=== PATIENT | male | born 1950 | race Caucasian/White ===

== ENCOUNTER 2017-11-22 21:01 | Inpatient (IN) | payer MEDICARE, MEDICAID ==
[~2017-11-22] VITALS: Ht 175.3 cm; Wt 140.6 kg
[2017-11-22] MEDS ORDERED: Sodium Chloride 500ML 500 ML IV ONE (21:26)
[2017-11-22 21:47] LABS: BASOPHILS % (AUTO) 1.2 % (0.0-2.0); EOSINOPHILS % (AUTO) 0.4 % (0.0-3.0); HEMATOCRIT 33.6 % (42.0-52.0); LYMPHOCYTES % (AUTO) 9.3 % (20.0-45.0); MEAN CORPUSCULAR VOLUME 94 FL (80-99); MONOCYTES % (AUTO) 5.9 % (1.0-10.0); NEUTROPHILS % (AUTO) 83.2 % (45.0-75.0); PLATELET COUNT 211 K/UL (150-450); RED BLOOD COUNT 3.58 M/UL (4.70-6.10); RED CELL DISTRIBUTION WIDTH 13.8 % (11.6-14.8); WHITE BLOOD COUNT 6.4 K/UL (4.8-10.8)
[2017-11-22 21:59] LABS: ANION GAP 4 mmol/L (5-15); BLOOD UREA NITROGEN 42 mg/dL (7-18); CALCIUM 9.6 MG/DL (8.5-10.1); CARBON DIOXIDE 33 MMOL/L (21-32); CHLORIDE 99 MMOL/L (98-107); CREATININE 1.7 MG/DL (0.55-1.30); POTASSIUM 5.5 MMOL/L (3.5-5.1); SODIUM 136 MMOL/L (136-145)
[2017-11-22 22:15] LABS: ALANINE AMINOTRANSFERASE 30 U/L (12-78); ALBUMIN 3.1 G/DL (3.4-5.0); ALBUMIN/GLOBULIN RATIO 0.6 (1.0-2.7); ALKALINE PHOSPHATASE 120 U/L (46-116); ASPARTATE AMINO TRANSFERASE 22 U/L (15-37); BILIRUBIN,TOTAL 0.2 MG/DL (0.2-1.0); CKMB 0.6 NG/ML (0.0-3.6); CREATINE KINASE 52 U/L (26-308)
[2017-11-22] MEDS ORDERED: Sodium Polystyrene Sulfonate 15gm Powder ORAL ONE (22:15)
[2017-11-22] MEDS ORDERED: BACLOFEN10 MG ORAL (22:34)
[2017-11-22] MEDS ORDERED: VITAMIN D1000 UNI1 ORAL (22:34)
[2017-11-22] MEDS ORDERED: BRIMONIDINE TART5 ML BOTH EYES (22:34)
[2017-11-22] MEDS ORDERED: CALCIUM 500 +1 EAC6 PO (22:34)
[2017-11-22] MEDS ORDERED: ACTOS30 MG ORAL (22:34)
[2017-11-22] MEDS ORDERED: COLACE100 MG ORAL (22:35)
[2017-11-22] MEDS ORDERED: BENZTROPINE ME0.5 MG PO (22:35)
[2017-11-22] MEDS ORDERED: GABAPENTIN400 MG ORAL (22:48)
[2017-11-22] MEDS ORDERED: XIFAXAN550 MG ORAL (22:48)
[2017-11-22] MEDS ORDERED: VITAMIN C500 M1 ORAL (22:48)
[2017-11-22] MEDS ORDERED: DUONEB 0.5-3(2.53 ML HHN (22:48)
[2017-11-22] MEDS ORDERED: GLUCAGON W/DILUE1 MG IJ (22:48)
[2017-11-22] MEDS ORDERED: LEXAPRO10 MG ORAL (22:48)
[2017-11-22] MEDS ORDERED: LOVENOX10 M4 SUBQ (22:48)
[2017-11-22] MEDS ORDERED: LOSARTAN POTASS50 MG ORAL (22:48)
[2017-11-22] MEDS ORDERED: GLIPIZIDE5 MG ORAL (22:48)
[2017-11-22] MEDS ORDERED: XALATAN2.5 ML BOTH EYES (22:48)
[2017-11-22] MEDS ORDERED: TYLENOL EXTRA500 MG ORAL (22:48)
[2017-11-22] MEDS ORDERED: DEPAKOTE ER500 MG ORAL (22:48)
[2017-11-22] MEDS ORDERED: NORVASC2.5 MG ORAL (22:48)
[2017-11-22] MEDS ORDERED: ACIDOPHILUS1 EAC6 PO (22:48)
[2017-11-22] MEDS ORDERED: RISPERDAL2 MG ORAL (22:48)
[2017-11-22] MEDS ORDERED: MULTIVITAMINS1 EAC2 ORAL (22:48)
[2017-11-22] MEDS ORDERED: RESTORIL15 MG ORAL (22:48)
[2017-11-22] MEDS ORDERED: LANTUS SOL100 UNIT/1 SUBQ (22:48)
[2017-11-22] MEDS ORDERED: JUVEN PACKET1 EAC1 PO (22:48)
[2017-11-22] MEDS ORDERED: TRAMADOL HCL50 MG ORAL (22:48)
[2017-11-22] MEDS ORDERED: FLEET ENEMA133 ML RECTAL (22:48)
[2017-11-22] MEDS ORDERED: FLOMAX0.4 MG ORAL (22:48)
--- NOTE | 2017-11-22 23:16 | Emergency Room Report ---
History of Present Illness General Chief Complaint: Dyspnea/Respdistress Source: Patient, Medical Record Present Illness HPI 66-year-old male presents ED for evaluation. Patient brought in from SNF for evaluation of shortness of breath and fever. 1 day. Per EMS patient noted to be congested. Initially tachycardic. Denies chest pain. No other aggravating relieving factors. Denies any other associated symptoms Allergies: Coded Allergies: ASPIRIN (Verified Allergy, Unknown, 11/22/17) CODEINE (Verified Allergy, Unknown, 11/22/17) PENICILLINS (Verified Allergy, Unknown, 11/22/17) SULFAMETHOXAZOLE (Verified Allergy, Unknown, 11/22/17) TRIMETHOPRIM (Verified Allergy, Unknown, 11/22/17) Patient History Past Medical History: DM, HTN, GERD Past Surgical History: none Pertinent Family History: none Social History: Denies: smoking, alcohol use, drug use Immunizations: UTD Reviewed Nursing Documentation: PMH: Agreed; PSxH: Agreed Nursing Documentation-PMH Past Medical History: No History, Except For Hx Hypertension: Yes Hx Diabetes: Yes - dm2 Hx Gastrointestinal Problems: Yes - gerd Hx Dialysis: No - ckd, bph Review of Systems All Other Systems: negative except mentioned in HPI Physical Exam Vital Signs Date Time Temp Pulse Resp B/P (MAP) Pulse Ox O2 Delivery O2 Flow Rate FiO2 11/22/17 20:58 98.7 100 22 127/75 97 Nasal Cannula 98.8 Sp02 EP Interpretation: reviewed, normal General Appearance: no apparent distress, alert, GCS 15, non-toxic Head: normocephalic, atraumatic Eyes: bilateral eye normal inspection, bilateral eye PERRL ENT: hearing grossly normal, normal pharynx, no angioedema, normal voice Neck: full range of motion, supple/symm/no masses Respiratory: chest non-tender, normal breath sounds, crackles, speaking full sentences Cardiovascular #1: regular rate, rhythm, no edema Cardiovascular #2: 2+ carotid (R), 2+ carotid (L), 2+ radial (R), 2+ radial (L) , 2+ dorsalis pedis (R), 2+ dorsalis pedis (L) Gastrointestinal: normal bowel sounds, non tender, soft, non-distended, no guarding, no rebound Rectal: deferred Genitourinary: normal inspection, no CVA tenderness Musculoskeletal: back normal, gait/station normal, normal range of motion, non- tender Neurologic: alert, oriented x3, responsive, motor strength/tone normal, sensory intact, speech normal Psychiatric: judgement/insight normal, memory normal, mood/affect normal, no suicidal/homicidal ideation Reflexes: 3+ bicep (R), 3+ bicep (L), 3+ tricep (R), 3+ tricep (L), 3+ knee (R) , 3+ knee (L) Skin: normal color, no rash, warm/dry, well hydrated Lymphatic: no adenopathy Medical Decision Making Diagnostic Impression: Primary Impression: Pneumonia Qualified Codes: J18.1 - Lobar pneumonia, unspecified organism Additional Impressions: Renal insufficiency Hyperkalemia, diminished renal excretion ER Course Hospital Course 66-year-old M presenting to ED with respiratory distress, fever, congestion Differential diagnoses include: Pneumonia, CHF exacerbation, pneumothorax, fluid overload Clinical course Patient placed on stretcher. On monitor and storage bin tender with hypoxia on room air and tachycardia. After initial history and physical, I O2 nasal cannula. I ordered labs, IV fluids, EKG, chest x-ray, blood cultures, UA. given tylenol Labs - no leukocytosis, hemoglobin/hematocrit stable, K 5.5, Cr 1.7, lactate okay troponins negative CXR - cardiomegaly, LLL infiltrate EKG - NSR, no acute ischemic changes interpreted by me abx given. kayeelate given. Case discussed with Dr. Salinas and he agreed to the patient to his service for further care and support I feel this is a highly complex case requiring extensive working including EKG/ Rhythm strip, Xray/CT/US, Blood/urine lab work, repeat exams while in ED, and administration of strong opiates/narcotics for pain control, admission to hospital or close patient follow up. Diagnosis - pneumonia, renal insufficieny, hyperkalemia Patient admitted to telemetry in serious condition Labs Test 11/22/17 21:02 White Blood Count 6.4 K/UL (4.8-10.8) Red Blood Count 3.58 M/UL (4.70-6.10) Hemoglobin 11.0 G/DL (14.2-18.0) Hematocrit 33.6 % (42.0-52.0) Mean Corpuscular Volume 94 FL (80-99) Mean Corpuscular Hemoglobin 30.8 PG (27.0-31.0) Mean Corpuscular Hemoglobin Concent 32.8 G/DL (32.0-36.0) Red Cell Distribution Width 13.8 % (11.6-14.8) Platelet Count 211 K/UL (150-450) Mean Platelet Volume 5.8 FL (6.5-10.1) Neutrophils (%) (Auto) 83.2 % (45.0-75.0) Lymphocytes (%) (Auto) 9.3 % (20.0-45.0) Monocytes (%) (Auto) 5.9 % (1.0-10.0) Eosinophils (%) (Auto) 0.4 % (0.0-3.0) Basophils (%) (Auto) 1.2 % (0.0-2.0) Sodium Level 136 MMOL/L (136-145) Potassium Level 5.5 MMOL/L (3.5-5.1) Chloride Level 99 MMOL/L (98-107) Carbon Dioxide Level 33 MMOL/L (21-32) Anion Gap 4 mmol/L (5-15) Blood Urea Nitrogen 42 mg/dL (7-18) Creatinine 1.7 MG/DL (0.55-1.30) Estimat Glomerular Filtration Rate 40.4 mL/min (>60) Glucose Level 304 MG/DL (74-106) Lactic Acid Level 0.90 mmol/L (0.4-2.0) Calcium Level 9.6 MG/DL (8.5-10.1) Total Bilirubin 0.2 MG/DL (0.2-1.0) Aspartate Amino Transf (AST/SGOT) 22 U/L (15-37) Alanine Aminotransferase (ALT/SGPT) 30 U/L (12-78) Alkaline Phosphatase 120 U/L (46-116) Total Creatine Kinase 52 U/L (26-308) Creatine Kinase MB 0.6 NG/ML (0.0-3.6) Creatine Kinase MB Relative Index 1.1 Troponin I 0.000 ng/mL (0.000-0.056) Pro-B-Type Natriuretic Peptide 159 pg/mL (0-125) Total Protein 8.6 G/DL (6.4-8.2) Albumin 3.1 G/DL (3.4-5.0) Globulin 5.5 g/dL Albumin/Globulin Ratio 0.6 (1.0-2.7) EKG Diagnostic Results Rate: normal Rhythm: NSR ST Segments: no acute changes ASA given to the pt in ED: No Rhythm Strip Diag. Results EP Interpretation: yes Rhythm: NSR, no PVC's, no ectopy Chest X-Ray Diagnostic Results Chest X-Ray Diagnostic Results : Chest X-Ray Ordered: Yes # of Views/Limited/Complete: 1 View Indication: Shortness of Breath EP Interpretation: Yes Interpretation: no pneumothorax, other - cardiomegaly. LLL infiltrate Impression: Other - PNA Electronically Signed by: Electronically signed by Marcello Huber MD Last Vital Signs Date Time Temp Pulse Resp B/P (MAP) Pulse Ox O2 Delivery O2 Flow Rate FiO2 11/22/17 22:50 100.8 11/22/17 21:42 100 22 Nasal Cannula 11/22/17 20:58 127/75 97 Status: improved Disposition: ADMITTED INPATIENT Condition: Serious Referrals: Joe Salinas DO (PCP) Marcello Huber MD Nov 22, 2017 23:16
[2017-11-22 23:31] VITALS: BP 120/80
[2017-11-22 23:38] VITALS: BP 156/84
[2017-11-23 04:00] VITALS: BP 110/51
[2017-11-23 08:00] VITALS: BP 127/58
[2017-11-23 12:00] VITALS: BP 145/70
--- NOTE | 2017-11-23 12:57 | Consultation ---
History of Present Illness General Date patient seen: Nov 23, 2017 Chief Complaint: Dyspnea/Respdistress Present Illness HPI 66-year-old male with hx of HTN, COPD, morbid obesity, Dementia, presented to ED for evaluation of shortness of breath and fever. 1 day. Per EMS patient noted to be congested. He was initially tachycardic in ER. Denies chest pain. No other aggravating relieving factors. His CXR showed possible pneumonia. He is admitted to telemetry for further work up. Allergies: Coded Allergies: ASPIRIN (Verified Allergy, Unknown, 11/22/17) CODEINE (Verified Allergy, Unknown, 11/22/17) PENICILLINS (Verified Allergy, Unknown, 11/22/17) SULFAMETHOXAZOLE (Verified Allergy, Unknown, 11/22/17) TRIMETHOPRIM (Verified Allergy, Unknown, 11/22/17) Medication History Scheduled Amlodipine Besylate (Norvasc), Unknown Dose ORAL DAILY, (Reported) Ascorbic Acid* (Vitamin C*), 500 MG ORAL DAILY, (Reported) Baclofen* (Baclofen*), 10 MG ORAL THREE TIMES A DAY, (Reported) Brimonidine Tartrate* (Alphagan*), 1 DROP BOTH EYES TID, (Reported) Cholecalciferol (Vitamin D3)* (Vitamin D*), 1,000 UNIT ORAL DAILY, (Reported) Divalproex Sodium* (Depakote Er*), 750 MG ORAL EVERY 12 HOURS, (Reported) Docusate Sodium* (Colace*), 100 MG ORAL DAILY, (Reported) Enoxaparin* (Lovenox*), 40 MG SUBQ DAILY, (Reported) Escitalopram Oxalate* (Lexapro*), 10 MG ORAL DAILY, (Reported) Gabapentin* (Gabapentin*), 400 MG ORAL THREE TIMES A DAY, (Reported) Glipizide* (Glipizide*), 5 MG ORAL BIDAC, (Reported) Insulin Glargine (Lantus), 26 UNITS SUBQ BEDTIME, (Reported) Latanoprost* (Xalatan*), 1 DROP BOTH EYES BEDTIME, (Reported) Losartan Potassium* (Losartan Potassium*), 50 MG ORAL DAILY, (Reported) Multivitamins* (Multivitamins*), 1 TAB ORAL DAILY, (Reported) Pioglitazone Hcl* (Actos*), 30 MG ORAL DAILY, (Reported) Rifaximin* (Xifaxan*), 550 MG ORAL TID, (Reported) Risperidone* (Risperdal*), 2 MG ORAL DAILY, (Reported) Tamsulosin HCl (Flomax), 0.4 MG ORAL DAILY, (Reported) Scheduled PRN Acetaminophen* (Tylenol Extra Strength*), 650 MG ORAL Q4HR PRN for Mild Pain/ Temp > 100.5, (Reported) Glucagon (Glucagen), 1 MG IJ for Hypoglycemia, (Reported) Na Phos,M-B/Na Phos,Di-Ba* (Fleet Enema*), 133 ML RECTAL for Constipation, ( Reported) Temazepam* (Restoril*), 15 MG ORAL BEDTIME PRN for Insomnia, (Reported) Tramadol Hcl* (Ultram*), 50 MG ORAL Q6H PRN for For Pain, (Reported) Miscellaneous Medications Arginine/Glutamine/Calcium Hmb (Fredo Packet), 1 EACH PO, (Reported) Benztropine Mesylate* (Cogentin*), 1 MG PO, (Reported) Calcium Carbonate/Vitamin D3 (Calcium 500 + Vit D 200 Caplet), 1 EACH PO, ( Reported) Ipratropium/Albuterol Sulfate (DuoNeb 0.5-3(2.5)mg/3ml), 3 ML HHN, (Reported) Lactobacillus Acidophilus (Acidophilus), 1 EACH PO, (Reported) Patient History Healthcare decision maker Yolis Resuscitation status Do Not Resuscitate Advanced Directive on File Past Medical/Surgical History Past Medical/Surgical History: (1) Acute encephalopathy (2) Dementia (3) Diabetes mellitus (4) Morbid obesity Review of Systems Constitutional: Reports: no symptoms Eye: Reports: no symptoms ENT: Reports: no symptoms Respiratory: Reports: no symptoms Physical Exam General Appearance: WD/WN, no apparent distress Lines, tubes and drains: peripheral HEENT: normocephalic, atraumatic Neck: non-tender, normal alignment Respiratory/Chest: chest wall non-tender, normal breath sounds Breasts: no masses Cardiovascular/Chest: normal peripheral pulses Abdomen: normal bowel sounds Genitourinary/Rectal: normal genital exam Extremities: normal range of motion 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 Last 24 Hour Vital Signs Date Time Temp Pulse Resp B/P (MAP) Pulse Ox O2 Delivery O2 Flow Rate FiO2 11/23/17 12:00 97.7 81 20 145/70 (95) 98 97.7 11/23/17 08:00 97.6 64 16 127/58 (81) 96 97.6 11/23/17 08:00 61 11/23/17 04:00 77 11/23/17 04:00 97.9 76 20 110/51 (70) 93 97.9 11/23/17 03:40 Nasal Cannula 2.0 11/23/17 01:57 80 11/22/17 23:38 98.1 91 156/84 (108) 92 98.1 11/22/17 23:31 99.0 89 18 120/80 99 Nasal Cannula 2.0 99.0 11/22/17 23:31 99.0 98 22 122/80 97 Nasal Cannula 213.4 11/22/17 22:50 100.8 11/22/17 21:42 100 22 Nasal Cannula 11/22/17 20:58 98.7 100 22 127/75 97 Nasal Cannula 98.8 Intake and Output 11/22/17 11/23/17 19:00 07:00 Intake Total 0 ml Balance 0 ml Intake Oral 0 ml # Voids 1 Laboratory Tests Test 11/22/17 21:02 White Blood Count 6.4 K/UL (4.8-10.8) Red Blood Count 3.58 M/UL (4.70-6.10) L Hemoglobin 11.0 G/DL (14.2-18.0) L Hematocrit 33.6 % (42.0-52.0) L Mean Corpuscular Volume 94 FL (80-99) Mean Corpuscular Hemoglobin 30.8 PG (27.0-31.0) Mean Corpuscular Hemoglobin Concent 32.8 G/DL (32.0-36.0) Red Cell Distribution Width 13.8 % (11.6-14.8) Platelet Count 211 K/UL (150-450) Mean Platelet Volume 5.8 FL (6.5-10.1) L Neutrophils (%) (Auto) 83.2 % (45.0-75.0) H Lymphocytes (%) (Auto) 9.3 % (20.0-45.0) L Monocytes (%) (Auto) 5.9 % (1.0-10.0) Eosinophils (%) (Auto) 0.4 % (0.0-3.0) Basophils (%) (Auto) 1.2 % (0.0-2.0) Sodium Level 136 MMOL/L (136-145) Potassium Level 5.5 MMOL/L (3.5-5.1) H Chloride Level 99 MMOL/L (98-107) Carbon Dioxide Level 33 MMOL/L (21-32) H Anion Gap 4 mmol/L (5-15) L Blood Urea Nitrogen 42 mg/dL (7-18) H Creatinine 1.7 MG/DL (0.55-1.30) H Estimat Glomerular Filtration Rate 40.4 mL/min (>60) Glucose Level 304 MG/DL (74-106) H Lactic Acid Level 0.90 mmol/L (0.4-2.0) Calcium Level 9.6 MG/DL (8.5-10.1) Total Bilirubin 0.2 MG/DL (0.2-1.0) Aspartate Amino Transf (AST/SGOT) 22 U/L (15-37) Alanine Aminotransferase (ALT/SGPT) 30 U/L (12-78) Alkaline Phosphatase 120 U/L (46-116) H Total Creatine Kinase 52 U/L (26-308) Creatine Kinase MB 0.6 NG/ML (0.0-3.6) Creatine Kinase MB Relative Index 1.1 Troponin I 0.000 ng/mL (0.000-0.056) Pro-B-Type Natriuretic Peptide 159 pg/mL (0-125) H Total Protein 8.6 G/DL (6.4-8.2) H Albumin 3.1 G/DL (3.4-5.0) L Globulin 5.5 g/dL Albumin/Globulin Ratio 0.6 (1.0-2.7) L Height (Feet): 5 Height (Inches): 9.00 Weight (Pounds): 310 Assessment/Plan Problem List: (1) Acute encephalopathy ICD Codes: G93.40 - Encephalopathy, unspecified SNOMED: 63123729, 888326395 (2) Pneumonia ICD Codes: J18.9 - Pneumonia, unspecified organism SNOMED: 438568155, 170161806 Qualifiers: Qualified Codes: J18.1 - Lobar pneumonia, unspecified organism (3) Renal insufficiency ICD Codes: N28.9 - Disorder of kidney and ureter, unspecified SNOMED: 428749891, 638560668 (4) Dementia ICD Codes: F03.90 - Unspecified dementia without behavioral disturbance SNOMED: 26446060 (5) Morbid obesity ICD Codes: E66.01 - Morbid (severe) obesity due to excess calories SNOMED: 220044044 (6) Diabetes mellitus ICD Codes: E11.9 - Type 2 diabetes mellitus without complications SNOMED: 97616956 Assessment/Plan respiratory treatment check sputum iv abx echo check electrolytes dvt prophylaxis monitor BP Sandrine Swift MD Nov 23, 2017 12:57
--- NOTE | 2017-11-23 14:37 | Diagnostic Imaging Report ---
Indication: Shortness of breath Technique: One view of the chest Comparison: none Findings: Suboptimal inspiration. There are bilateral basilar atelectatic changes. The lungs and pleural spaces are otherwise clear. Heart size is upper limits normal. Impression: Hypoventilatory exam with bibasilar atelectasis No acute process otherwise
[2017-11-23 16:00] VITALS: BP 143/68
[2017-11-23 16:24] LABS: CREATINE KINASE 798 U/L (26-308)
--- NOTE | 2017-11-23 17:18 | Consultation ---
History of Present Illness General Date patient seen: Nov 23, 2017 Chief Complaint: Dyspnea/Respdistress Present Illness HPI 66 y/o M with hx of HTN, COPD, GERD, DM2, morbid obesity, Dementia, SNF resident presents to ED on 11/22 with 1 day of SOB, congestion and fever. In ED tachycardic. CXR showed possible PNA. Denied CP Allergies: Coded Allergies: ASPIRIN (Verified Allergy, Unknown, 11/22/17) CODEINE (Verified Allergy, Unknown, 11/22/17) PENICILLINS (Verified Allergy, Unknown, 11/22/17) SULFAMETHOXAZOLE (Verified Allergy, Unknown, 11/22/17) TRIMETHOPRIM (Verified Allergy, Unknown, 11/22/17) Medication History Scheduled Amlodipine Besylate (Norvasc), Unknown Dose ORAL DAILY, (Reported) Ascorbic Acid* (Vitamin C*), 500 MG ORAL DAILY, (Reported) Baclofen* (Baclofen*), 10 MG ORAL THREE TIMES A DAY, (Reported) Brimonidine Tartrate* (Alphagan*), 1 DROP BOTH EYES TID, (Reported) Cholecalciferol (Vitamin D3)* (Vitamin D*), 1,000 UNIT ORAL DAILY, (Reported) Divalproex Sodium* (Depakote Er*), 750 MG ORAL EVERY 12 HOURS, (Reported) Docusate Sodium* (Colace*), 100 MG ORAL DAILY, (Reported) Enoxaparin* (Lovenox*), 40 MG SUBQ DAILY, (Reported) Escitalopram Oxalate* (Lexapro*), 10 MG ORAL DAILY, (Reported) Gabapentin* (Gabapentin*), 400 MG ORAL THREE TIMES A DAY, (Reported) Glipizide* (Glipizide*), 5 MG ORAL BIDAC, (Reported) Insulin Glargine (Lantus), 26 UNITS SUBQ BEDTIME, (Reported) Latanoprost* (Xalatan*), 1 DROP BOTH EYES BEDTIME, (Reported) Losartan Potassium* (Losartan Potassium*), 50 MG ORAL DAILY, (Reported) Multivitamins* (Multivitamins*), 1 TAB ORAL DAILY, (Reported) Pioglitazone Hcl* (Actos*), 30 MG ORAL DAILY, (Reported) Rifaximin* (Xifaxan*), 550 MG ORAL TID, (Reported) Risperidone* (Risperdal*), 2 MG ORAL DAILY, (Reported) Tamsulosin HCl (Flomax), 0.4 MG ORAL DAILY, (Reported) Scheduled PRN Acetaminophen* (Tylenol Extra Strength*), 650 MG ORAL Q4HR PRN for Mild Pain/ Temp > 100.5, (Reported) Glucagon (Glucagen), 1 MG IJ for Hypoglycemia, (Reported) Na Phos,M-B/Na Phos,Di-Ba* (Fleet Enema*), 133 ML RECTAL for Constipation, ( Reported) Temazepam* (Restoril*), 15 MG ORAL BEDTIME PRN for Insomnia, (Reported) Tramadol Hcl* (Ultram*), 50 MG ORAL Q6H PRN for For Pain, (Reported) Miscellaneous Medications Arginine/Glutamine/Calcium Hmb (Fredo Packet), 1 EACH PO, (Reported) Benztropine Mesylate* (Cogentin*), 1 MG PO, (Reported) Calcium Carbonate/Vitamin D3 (Calcium 500 + Vit D 200 Caplet), 1 EACH PO, ( Reported) Ipratropium/Albuterol Sulfate (DuoNeb 0.5-3(2.5)mg/3ml), 3 ML HHN, (Reported) Lactobacillus Acidophilus (Acidophilus), 1 EACH PO, (Reported) Patient History Healthcare decision maker Yolis Resuscitation status Do Not Resuscitate Advanced Directive on File Patient History Narrative Pmhx: as above Shx: Denies: smoking, alcohol use, drug use Fhx: non contributory Review of Systems All Other Systems: negative except mentioned in HPI Physical Exam Physical Exam Narrative General Appearance: WD/WN, no apparent distress Lines, tubes and drains: peripheral HEENT: normocephalic, atraumatic Neck: non-tender, normal alignment Respiratory/Chest: chest wall non-tender, normal breath sounds Breasts: no masses Cardiovascular/Chest: normal peripheral pulses Abdomen: normal bowel sounds Genitourinary/Rectal: normal genital exam Extremities: normal range of motion Neurologic: audio narrator II-XII grossly normal Last 24 Hour Vital Signs Date Time Temp Pulse Resp B/P (MAP) Pulse Ox O2 Delivery O2 Flow Rate FiO2 11/23/17 16:00 97.5 88 20 143/68 (93) 95 97.5 11/23/17 12:00 73 11/23/17 12:00 97.7 81 20 145/70 (95) 98 97.7 11/23/17 09:00 Nasal Cannula 2.0 11/23/17 08:00 97.6 64 16 127/58 (81) 96 97.6 11/23/17 08:00 61 11/23/17 04:00 77 11/23/17 04:00 97.9 76 20 110/51 (70) 93 97.9 11/23/17 03:40 Nasal Cannula 2.0 11/23/17 01:57 80 11/22/17 23:38 98.1 91 156/84 (108) 92 98.1 11/22/17 23:31 99.0 89 18 120/80 99 Nasal Cannula 2.0 99.0 11/22/17 23:31 99.0 98 22 122/80 97 Nasal Cannula 213.4 11/22/17 22:50 100.8 11/22/17 21:42 100 22 Nasal Cannula 11/22/17 20:58 98.7 100 22 127/75 97 Nasal Cannula 98.8 Intake and Output 11/22/17 11/23/17 19:00 07:00 Intake Total 0 ml Balance 0 ml Intake Oral 0 ml # Voids 1 Laboratory Tests Test 11/22/17 21:02 11/23/17 15:25 White Blood Count 6.4 K/UL (4.8-10.8) Red Blood Count 3.58 M/UL (4.70-6.10) L Hemoglobin 11.0 G/DL (14.2-18.0) L Hematocrit 33.6 % (42.0-52.0) L Mean Corpuscular Volume 94 FL (80-99) Mean Corpuscular Hemoglobin 30.8 PG (27.0-31.0) Mean Corpuscular Hemoglobin Concent 32.8 G/DL (32.0-36.0) Red Cell Distribution Width 13.8 % (11.6-14.8) Platelet Count 211 K/UL (150-450) Mean Platelet Volume 5.8 FL (6.5-10.1) L Neutrophils (%) (Auto) 83.2 % (45.0-75.0) H Lymphocytes (%) (Auto) 9.3 % (20.0-45.0) L Monocytes (%) (Auto) 5.9 % (1.0-10.0) Eosinophils (%) (Auto) 0.4 % (0.0-3.0) Basophils (%) (Auto) 1.2 % (0.0-2.0) Sodium Level 136 MMOL/L (136-145) Potassium Level 5.5 MMOL/L (3.5-5.1) H Chloride Level 99 MMOL/L (98-107) Carbon Dioxide Level 33 MMOL/L (21-32) H Anion Gap 4 mmol/L (5-15) L Blood Urea Nitrogen 42 mg/dL (7-18) H Creatinine 1.7 MG/DL (0.55-1.30) H Estimat Glomerular Filtration Rate 40.4 mL/min (>60) Glucose Level 304 MG/DL (74-106) H Lactic Acid Level 0.90 mmol/L (0.4-2.0) Calcium Level 9.6 MG/DL (8.5-10.1) Total Bilirubin 0.2 MG/DL (0.2-1.0) Aspartate Amino Transf (AST/SGOT) 22 U/L (15-37) Alanine Aminotransferase (ALT/SGPT) 30 U/L (12-78) Alkaline Phosphatase 120 U/L (46-116) H Total Creatine Kinase 52 U/L (26-308) 798 U/L (26-308) H Creatine Kinase MB 0.6 NG/ML (0.0-3.6) Creatine Kinase MB Relative Index 1.1 Troponin I 0.000 ng/mL (0.000-0.056) Pro-B-Type Natriuretic Peptide 159 pg/mL (0-125) H Total Protein 8.6 G/DL (6.4-8.2) H Albumin 3.1 G/DL (3.4-5.0) L Globulin 5.5 g/dL Albumin/Globulin Ratio 0.6 (1.0-2.7) L Uric Acid 7.4 MG/DL (2.6-7.2) H Height (Feet): 5 Height (Inches): 9.00 Weight (Pounds): 310 Medications Current Medications Medications (Trade) Dose Ordered Sig/Jayden Route PRN Reason Start Time Stop Time Status Last Admin Dose Admin Amlodipine Besylate (Norvasc) 5 mg DAILY ORAL 11/24/17 12:31 12/24/17 12:30 Ascorbic Acid (Vitamin C) 500 mg DAILY ORAL 11/24/17 09:00 12/24/17 08:59 Divalproex Sodium (Depakote) 750 mg EVERY 12 HOURS ORAL 11/23/17 21:00 12/23/17 20:59 Escitalopram Oxalate (Lexapro) 10 mg DAILY ORAL 11/24/17 12:32 12/24/17 12:31 Gabapentin (Neurontin) 400 mg Q8H ORAL 11/23/17 13:00 12/23/17 12:59 11/23/17 13:54 Heparin Sodium (Porcine) (Heparin 5000 units/ml) 5,000 units EVERY 12 HOURS SUBQ 11/23/17 21:00 12/23/17 20:59 Levofloxacin 100 ml @ 100 mls/hr Q24H IVPB 11/23/17 14:00 11/30/17 13:59 11/23/17 14:20 Losartan Potassium (Cozaar) 50 mg DAILY ORAL 11/24/17 12:33 12/24/17 12:32 Risperidone (RisperDAL) 2 mg DAILY ORAL 11/24/17 12:33 12/24/17 12:32 Tamsulosin HCl (Flomax) 0.4 mg QHS ORAL 11/23/17 21:00 12/23/17 20:59 Assessment/Plan Assessment/Plan Abx: Levaquin 11/22- Assessment: Bronchitis vs PNA -CXR: There are bilateral basilar atelectatic changes. The lungs and pleural spaces are otherwise clear Low grade fever -no leukocytosis MACARIO Vs CKD HTN COPD GERD DM2 morbid obesity Dementia SNF resident Plan: -Continue Levaquin #2/5-7 -f/u cx -Monitor CBC/CMP, temperatures -CXR am -aspiration precautions Thank you for this consultation. Will continue to follow along with you. Discussed with Vandana Jimenez M.D. Nov 23, 2017 17:18
[2017-11-23 19:00] LABS: APPEARANCE,URINE CLEAR; BILIRUBIN, URINE NEGATIVE (NEGATIVE); COLOR,URINE PALE YELLOW; GLUCOSE, URINE (UA) 3+ (NEGATIVE); KETONES,URINE 1+ (NEGATIVE); LEUKOCYTE ESTERASE ,URINE NEGATIVE (NEGATIVE); NITRITE,URINE NEGATIVE (NEGATIVE); PH,URINE 6 (4.5-8.0); PROTEIN,URINE 1+ (NEGATIVE); UROBILINOGEN,URINE NORMAL MG/DL (0.0-1.0)
[2017-11-23 20:00] VITALS: BP 118/58
[2017-11-23] MEDS: Heparin 5000 units/ml inj SUBQ SCH (21:00)
[2017-11-23] MEDS: Tamsulosin 0.4mg cap ORAL SCH (21:41)
--- NOTE | 2017-11-23 23:15 | History and Physical Report ---
DATE OF ADMISSION: 11/22/2017 TIME: 1 p.m. CONSULTANTS: 1. Sandrine Swift M.D. 2. Alex Marion M.D. 3. Deborah Sosa M.D. CHIEF COMPLAINT: Shortness of breath, pneumonia, sepsis, and neuropathy. BRIEF HISTORY: This 66-year-old male from [facility] presented with the above-mentioned diagnosis, admitted for pneumonia, sepsis, neuropathy, tremor, and diabetes. Currently, slightly anxious in bed, O2 NC, slight short of breath. No complaints. PAST MEDICAL HISTORY: Includes diabetes, morbid obesity, renal insufficiency, pneumonia, dementia, and acute encephalopathy. PAST SURGICAL HISTORY: Left . MEDICATIONS: Cozaar, Risperdal, Lexapro, Norvasc, Depakote, Flomax, heparin, and levofloxacin. ALLERGIES: Aspirin, codeine, penicillin, and Bactrim. SOCIAL HISTORY: No smoking. No alcohol. No intravenous drug abuse. REVIEW OF SYSTEMS: No chest pain. Slight shortness of breath. No nausea, vomiting, or diarrhea. PHYSICAL EXAMINATION: GENERAL: Calm in bed, O2 NC, slight short of breath, and oriented x2. VITAL SIGNS: Temperature is 97 degrees, pulse 81, respirations 23, and blood pressure 145/79. CARDIOVASCULAR: No murmurs. LUNGS: Poor exchange. ABDOMEN: Bowel sounds distant. EXTREMITIES: No cyanosis, clubbing, or edema. LABORATORY DATA: Labs at this time, show hemoglobin 11.0, otherwise CBC is normal. BMP shows potassium 5.5, CO2 33, BUN and creatinine are 42 and 1.7, and glucose 304. ASSESSMENT: 1. Shortness of breath. 2. Pneumonia. 3. Sepsis. 4. Neuropathy. 5. Anemia. 6. Tremor. 7. Diabetes. 8. Obesity. 9. Venous insufficiency. 10. Encephalopathy. PLAN: 1. O2 and pulmonary treatment. 2. Antibiotics per Infectious Disease. 3. Blood pressure and blood sugar control. 4. Pain control. 5. Dietary followup. 6. Psychiatric treatment. Joe Salinas D.O. DR: LEIGH ANN JOB#: [id number] CC:
[2017-11-24] VITALS: BP 109/56
[2017-11-24 04:00] VITALS: BP 124/64
[2017-11-24] MEDS ORDERED: LORazepam 1mg tab ORAL PRN (04:15)
[2017-11-24 07:29] LABS: BASOPHILS % (AUTO) 0.8 % (0.0-2.0); EOSINOPHILS % (AUTO) 3.1 % (0.0-3.0); HEMATOCRIT 32.1 % (42.0-52.0); HEMOGLOBIN 10.3 G/DL (14.2-18.0); LYMPHOCYTES % (AUTO) 17.7 % (20.0-45.0); MEAN CORPUSCULAR VOLUME 94 FL (80-99); MONOCYTES % (AUTO) 10.2 % (1.0-10.0); NEUTROPHILS % (AUTO) 68.2 % (45.0-75.0); PLATELET COUNT 213 K/UL (150-450); RED BLOOD COUNT 3.41 M/UL (4.70-6.10)
[2017-11-24 07:50] LABS: ANION GAP 4 mmol/L (5-15); BLOOD UREA NITROGEN 33 mg/dL (7-18); CALCIUM 9.2 MG/DL (8.5-10.1); CARBON DIOXIDE 35 MMOL/L (21-32); CHLORIDE 102 MMOL/L (98-107); CREATININE 1.6 MG/DL (0.55-1.30); POTASSIUM 3.8 MMOL/L (3.5-5.1); SODIUM 141 MMOL/L (136-145)
[2017-11-24 08:00] VITALS: BP 130/68
--- NOTE | 2017-11-24 08:13 | Cardiology Report ---
APPROVED REPORT EXAM: Two-dimensional and M-mode echocardiogram with Doppler and color Doppler. INDICATION Left Ventricular Function Technically difficult and limited study due to patient body habitus. Study quality precludes accurate assessment of regional wall motion. M-mode measurements of left ventricle not obtainable due to poor acoustic windows. Normal left ventricular chamber size, systolic function and wall motion to extent visualized. Left ventricular ejection fraction estimated to be grossly normal. There appears to be no evidence of left ventricular hypertrophy. Anterior Echo-free space, may be due to pericardial fat or effusion. All other cardiac chamber sizes appears to be within normal limits. Mild focal aortic valve sclerosis with adequate cusp excursion. Mildly thickened mitral valve leaflets with normal excursion. Mild mitral annulus and aortic root calcification. Pulmonic valve not visualized. Tricuspid valve not well visualized. IVC dilated at 2.2 cm with physiological collapse. A color flow and spectral Doppler study was performed and revealed: No aortic insufficiency. No mitral regurgitation. Mitral inflow velocities indicates possible pseudo normalization pattern implying significant left ventricular diastolic dysfunction (Grade II). Trace tricuspid regurgitation. Tricuspid systolic velocities suggests peak right ventricular systolic pressure of 17 mmHg.
[2017-11-24] MEDS ORDERED: Ascorbic Acid 500mg tab ORAL SCH (09:00)
[2017-11-24] MEDS: Heparin 5000 units/ml inj SUBQ SCH ×2 (09:49→20:39)
--- NOTE | 2017-11-24 09:53 | Diagnostic Imaging Report ---
Indication: Cough Technique: One view of the chest Comparison: 11/22/2017 Findings: Lungs and pleural spaces are clear. There is bilateral central bronchial wall thickening. No definite acute infiltrates. There is minimal right infrahilar atelectasis. No definite significant change Impression: No acute process. Findings as noted
[2017-11-24 09:54] LABS: ALANINE AMINOTRANSFERASE 31 U/L (12-78); ALBUMIN 2.9 G/DL (3.4-5.0); ALKALINE PHOSPHATASE 94 U/L (46-116); ASPARTATE AMINO TRANSFERASE 30 U/L (15-37); BILIRUBIN,DIRECT < 0.1 MG/DL (0.0-0.3); BILIRUBIN,TOTAL 0.2 MG/DL (0.2-1.0); CREATINE KINASE 696 U/L (26-308); FERRITIN 193 NG/ML (8-388); PHOSPHORUS 3.6 MG/DL (2.5-4.9)
[2017-11-24 10:01] LABS: % IRON SATURATION 10 % (15-50); IRON 37 ug/dL (50-175); TOTAL IRON BINDING CAPACITY 374 ug/dL (250-450)
[2017-11-24] MEDS ORDERED: NS 500ML ONE (10:53)
[2017-11-24] MEDS ORDERED: Tubing IV Secondary IV ONE (10:53)
--- NOTE | 2017-11-24 10:54 | Consultation ---
Consult Note Consult Note asked to eval for renal failure- HPI 66-year-old male presents ED for evaluation. Patient brought in from SNF for evaluation of shortness of breath and fever. 1 day. Per EMS patient noted to be congested. Initially tachycardic. Denies chest pain. No other aggravating relieving factors. Denies any other associated symptoms Allergies: Coded Allergies: ASPIRIN (Verified Allergy, Unknown, 11/22/17) CODEINE (Verified Allergy, Unknown, 11/22/17) PENICILLINS (Verified Allergy, Unknown, 11/22/17) SULFAMETHOXAZOLE (Verified Allergy, Unknown, 11/22/17) TRIMETHOPRIM (Verified Allergy, Unknown, 11/22/17) Patient History Past Medical History: DM, HTN, GERD Past Medical History: Except For Hx Hypertension: Yes Hx Diabetes: Yes - dm2 Hx Gastrointestinal Problems: Yes - gerd Hx Dialysis: No - ckd, bph interviewed examined Assessment/Plan - Renal failure- acute on chronic- - Proteinuria, Diabetic nephropathy - Pneumonia- - Obesity- - DM OOC - Dementia - Encephalopathy - Anemia, Low Iron Slow Hydrate- IV Iron- monitor renal parameters- Avoid Nephrotoxics antibiotics per orders Dawson Doty MD Nov 24, 2017 10:54
--- NOTE | 2017-11-24 11:12 | General Progress Note ---
Assessment/Plan Problem List: (1) Renal insufficiency ICD Codes: N28.9 - Disorder of kidney and ureter, unspecified SNOMED: 002151277, 707041333 (2) Pneumonia ICD Codes: J18.9 - Pneumonia, unspecified organism SNOMED: 870621102, 892108019 Qualifiers: Qualified Codes: J18.1 - Lobar pneumonia, unspecified organism (3) Diabetes mellitus ICD Codes: E11.9 - Type 2 diabetes mellitus without complications SNOMED: 38759999 (4) Morbid obesity ICD Codes: E66.01 - Morbid (severe) obesity due to excess calories SNOMED: 990680836 (5) Dementia ICD Codes: F03.90 - Unspecified dementia without behavioral disturbance SNOMED: 69616477 (6) Acute encephalopathy ICD Codes: G93.40 - Encephalopathy, unspecified SNOMED: 75493332, 784813953 (7) Fever ICD Codes: R50.9 - Fever, unspecified SNOMED: 732047231 (8) SOB (shortness of breath) ICD Codes: R06.02 - Shortness of breath SNOMED: 540968930 Status: unchanged Assessment/Plan o2 pulm tx abx ot pt diet cbc bmp am dc plan Subjective Constitutional: Reports: weakness Allergies: Coded Allergies: ASPIRIN (Verified Allergy, Unknown, 11/22/17) CODEINE (Verified Allergy, Unknown, 11/22/17) PENICILLINS (Verified Allergy, Unknown, 11/22/17) SULFAMETHOXAZOLE (Verified Allergy, Unknown, 11/22/17) TRIMETHOPRIM (Verified Allergy, Unknown, 11/22/17) All Systems: reviewed and negative except above Subjective o2nc sl sob Objective Last 24 Hour Vital Signs Date Time Temp Pulse Resp B/P (MAP) Pulse Ox O2 Delivery O2 Flow Rate FiO2 11/24/17 08:00 100.6 86 22 130/68 (88) 92 100.6 11/24/17 08:00 78 11/24/17 04:00 98.3 69 16 124/64 (84) 94 98.3 11/24/17 04:00 76 11/24/17 00:00 98.2 67 20 109/56 (73) 94 98.2 11/24/17 00:00 77 11/23/17 21:00 Room Air 11/23/17 20:00 89 11/23/17 20:00 98.6 64 16 118/58 (78) 92 98.6 11/23/17 16:00 88 11/23/17 16:00 97.5 88 20 143/68 (93) 95 97.5 11/23/17 12:00 73 11/23/17 12:00 97.7 81 20 145/70 (95) 98 97.7 Intake and Output 11/23/17 11/24/17 19:00 07:00 Intake Total 290 ml Output Total 650 ml Balance -360 ml Intake Oral 290 ml Output Urine Total 650 ml # Voids 1 Laboratory Tests 11/23/17 15:25: Uric Acid 7.4H, Total Creatine Kinase 798H 11/23/17 18:00: Urine Color Pale yellow, Urine Appearance Clear, Urine pH 6, Urine Specific [place] 1.010, Urine Protein 1+H, Urine Glucose (UA) 3+H, Urine Ketones 1+H, Urine Occult Blood Negative, Urine Nitrite Negative, Urine Bilirubin Negative, Urine Urobilinogen Normal, Urine Leukocyte Esterase Negative, Urine RBC 0-2H, Urine WBC 0, Urine Squamous Epithelial Cells None, Urine Bacteria None, Urine Eosinophils None seen, Urine Random Sodium 49, Urine Potassium Timed 31 11/24/17 07:15: Uric Acid 7.4H, Total Creatine Kinase 696H, White Blood Count 5.0, Red Blood Count 3.41L, Hemoglobin 10.3L, Hematocrit 32.1L, Mean Corpuscular Volume 94, Mean Corpuscular Hemoglobin 30.2, Mean Corpuscular Hemoglobin Concent 32.0, Red Cell Distribution Width 13.0, Platelet Count 213, Mean Platelet Volume 5.7L, Neutrophils (%) (Auto) 68.2, Lymphocytes (%) (Auto) 17.7L, Monocytes (%) (Auto) 10.2H, Eosinophils (%) (Auto) 3.1H, Basophils (%) (Auto) 0.8, Sodium Level 141, Potassium Level 3.8, Chloride Level 102, Carbon Dioxide Level 35H, Anion Gap 4L , Blood Urea Nitrogen 33H, Creatinine 1.6H, Estimat Glomerular Filtration Rate 43.3, Glucose Level 158#H, Hemoglobin A1c 9.9H, Calcium Level 9.2, Phosphorus Level 3.6, Magnesium Level 2.6H, Iron Level 37L, Total Iron Binding Capacity 374 , Percent Iron Saturation 10L, Unsaturated Iron Binding 337, Ferritin 193, Total Bilirubin 0.2, Direct Bilirubin < 0.1, Aspartate Amino Transf (AST/SGOT) 30, Alanine Aminotransferase (ALT/SGPT) 31, Alkaline Phosphatase 94, C-Reactive Protein, Quantitative 2.9H, Total Protein 7.8, Albumin 2.9L, Triglycerides Level [Pending], Cholesterol Level [Pending], LDL Cholesterol [Pending], HDL Cholesterol [Pending], Cholesterol/HDL Ratio [Pending], Vitamin B12 Level 627, Folate 17.0, Thyroid Stimulating Hormone (TSH) 2.271 Height (Feet): 5 Height (Inches): 9.00 Weight (Pounds): 310 General Appearance: lethargic EENT: normal ENT inspection Neck: normal alignment Cardiovascular: normal peripheral pulses, normal rate, regular rhythm Respiratory/Chest: chest wall non-tender, decreased breath sounds Abdomen: normal bowel sounds, non tender, soft Extremities: normal inspection Edema: no edema noted Arm (L), no edema noted Arm (R), no edema noted Leg (L), no edema noted Leg (R), no edema noted Pedal (L), no edema noted Pedal (R), no edema noted Generalized Neurologic: motor weakness Skin: normal pigmentation, warm/dry Joe Salinas DO Nov 24, 2017 11:12
[2017-11-24 11:22] LABS: CHOLESTEROL 236 MG/DL (< 200); HDL CHOLESTEROL 38 MG/DL (40-60); TRIGLYCERIDES 294 MG/DL (30-150)
--- NOTE | 2017-11-24 11:27 | Pulmonology Progress Note ---
Assessment/Plan Problems: (1) Acute encephalopathy (2) Pneumonia (3) Renal insufficiency (4) Dementia (5) Morbid obesity (6) Diabetes mellitus Assessment/Plan improving respiratory treatment check sputum titrate fio2 to sat of 92% check electrolytes sliding scale continue abx dvt prophylaxis Subjective ROS Limited/Unobtainable: No Interval Events: less cough Allergies: Coded Allergies: ASPIRIN (Verified Allergy, Unknown, 11/22/17) CODEINE (Verified Allergy, Unknown, 11/22/17) PENICILLINS (Verified Allergy, Unknown, 11/22/17) SULFAMETHOXAZOLE (Verified Allergy, Unknown, 11/22/17) TRIMETHOPRIM (Verified Allergy, Unknown, 11/22/17) Objective Last 24 Hour Vital Signs Date Time Temp Pulse Resp B/P (MAP) Pulse Ox O2 Delivery O2 Flow Rate FiO2 11/24/17 08:00 100.6 86 22 130/68 (88) 92 100.6 11/24/17 08:00 78 11/24/17 04:00 98.3 69 16 124/64 (84) 94 98.3 11/24/17 04:00 76 11/24/17 00:00 98.2 67 20 109/56 (73) 94 98.2 11/24/17 00:00 77 11/23/17 21:00 Room Air 11/23/17 20:00 89 11/23/17 20:00 98.6 64 16 118/58 (78) 92 98.6 11/23/17 16:00 88 11/23/17 16:00 97.5 88 20 143/68 (93) 95 97.5 11/23/17 12:00 73 11/23/17 12:00 97.7 81 20 145/70 (95) 98 97.7 Intake and Output 11/23/17 11/24/17 19:00 07:00 Intake Total 290 ml Output Total 650 ml Balance -360 ml Intake Oral 290 ml Output Urine Total 650 ml # Voids 1 General Appearance: WD/WN HEENT: normocephalic, atraumatic Respiratory/Chest: chest wall non-tender, lungs clear, normal breath sounds Cardiovascular: normal peripheral pulses, normal rate Abdomen: normal bowel sounds, soft, non tender Extremities: no cyanosis, no clubbing Skin: no lesions Neurologic/Psychiatric: vegetable handler II-XII grossly normal Microbiology Date/Time Source Procedure Growth Status 11/22/17 21:30 Blood Blood Culture - Preliminary NO GROWTH AFTER 24 HOURS Resulted 11/22/17 21:15 Blood Blood Culture - Preliminary NO GROWTH AFTER 24 HOURS Resulted 11/22/17 22:30 Rectum - Preliminary Resulted Laboratory Tests 11/23/17 15:25: Uric Acid 7.4H, Total Creatine Kinase 798H 11/23/17 18:00: Urine Color Pale yellow, Urine Appearance Clear, Urine pH 6, Urine Specific [place] 1.010, Urine Protein 1+H, Urine Glucose (UA) 3+H, Urine Ketones 1+H, Urine Occult Blood Negative, Urine Nitrite Negative, Urine Bilirubin Negative, Urine Urobilinogen Normal, Urine Leukocyte Esterase Negative, Urine RBC 0-2H, Urine WBC 0, Urine Squamous Epithelial Cells None, Urine Bacteria None, Urine Eosinophils None seen, Urine Random Sodium 49, Urine Potassium Timed 31 11/24/17 07:15: Uric Acid 7.4H, Total Creatine Kinase 696H, White Blood Count 5.0, Red Blood Count 3.41L, Hemoglobin 10.3L, Hematocrit 32.1L, Mean Corpuscular Volume 94, Mean Corpuscular Hemoglobin 30.2, Mean Corpuscular Hemoglobin Concent 32.0, Red Cell Distribution Width 13.0, Platelet Count 213, Mean Platelet Volume 5.7L, Neutrophils (%) (Auto) 68.2, Lymphocytes (%) (Auto) 17.7L, Monocytes (%) (Auto) 10.2H, Eosinophils (%) (Auto) 3.1H, Basophils (%) (Auto) 0.8, Sodium Level 141, Potassium Level 3.8, Chloride Level 102, Carbon Dioxide Level 35H, Anion Gap 4L , Blood Urea Nitrogen 33H, Creatinine 1.6H, Estimat Glomerular Filtration Rate 43.3, Glucose Level 158#H, Hemoglobin A1c 9.9H, Calcium Level 9.2, Phosphorus Level 3.6, Magnesium Level 2.6H, Iron Level 37L, Total Iron Binding Capacity 374 , Percent Iron Saturation 10L, Unsaturated Iron Binding 337, Ferritin 193, Total Bilirubin 0.2, Direct Bilirubin < 0.1, Aspartate Amino Transf (AST/SGOT) 30, Alanine Aminotransferase (ALT/SGPT) 31, Alkaline Phosphatase 94, C-Reactive Protein, Quantitative 2.9H, Total Protein 7.8, Albumin 2.9L, Triglycerides Level 294H, Cholesterol Level 236H, LDL Cholesterol 158H, HDL Cholesterol 38L, Cholesterol/HDL Ratio 6.2H, Vitamin B12 Level 627, Folate 17.0, Thyroid Stimulating Hormone (TSH) 2.271 Current Medications Medications (Trade) Dose Ordered Sig/Jayden Route PRN Reason Start Time Stop Time Status Last Admin Dose Admin Amlodipine Besylate (Norvasc) 5 mg DAILY ORAL 11/24/17 12:31 12/24/17 12:30 Aripiprazole (Abilify) 5 mg DAILY ORAL 11/24/17 09:00 12/24/17 08:59 11/24/17 09:50 Divalproex Sodium (Depakote) 750 mg EVERY 12 HOURS ORAL 11/23/17 21:00 12/23/17 20:59 11/24/17 09:50 Escitalopram Oxalate (Lexapro) 10 mg DAILY ORAL 11/24/17 12:32 12/24/17 12:31 Famotidine (Pepcid) 20 mg BID ORAL 11/24/17 11:00 12/24/17 10:59 Gabapentin (Neurontin) 400 mg Q8H ORAL 11/23/17 13:00 12/23/17 12:59 11/24/17 05:24 Heparin Sodium (Porcine) (Heparin 5000 units/ml) 5,000 units EVERY 12 HOURS SUBQ 11/23/17 21:00 12/23/17 20:59 11/24/17 09:49 Iron Sucrose 200 mg/Sodium Chloride 120 ml @ 240 mls/hr ONCE IV 11/24/17 21:00 11/24/17 22:00 Levofloxacin 100 ml @ 100 mls/hr Q24H IVPB 11/23/17 14:00 11/30/17 13:59 11/23/17 14:20 Lorazepam (Ativan) 1 mg Q6H PRN ORAL For Anxiety 11/24/17 04:15 12/01/17 04:14 11/24/17 09:53 Losartan Potassium (Cozaar) 50 mg DAILY ORAL 11/24/17 12:33 12/24/17 12:32 Sodium Chloride 1,000 ml @ 75 mls/hr [id number] IV 11/24/17 11:00 12/24/17 10:59 Tamsulosin HCl (Flomax) 0.4 mg QHS ORAL 11/23/17 21:00 12/23/17 20:59 11/23/17 21:41 Sandrine Swift MD Nov 24, 2017 11:27
[2017-11-24 12:00] VITALS: BP 122/53
--- NOTE | 2017-11-24 12:28 | Infectious Diseases Prog Note ---
Assessment/Plan Assessment/Plan Abx: Levaquin 11/22- Assessment: Bronchitis vs PNA -CXR: There are bilateral basilar atelectatic changes. The lungs and pleural spaces are otherwise clear Low grade fever -no leukocytosis -u/a neg; ucx p -Bcx NTD MACARIO Vs CKD HTN COPD GERD DM2 morbid obesity Dementia SNF resident Plan: -Continue Levaquin #3/5-7 -f/u cx -Monitor CBC/CMP, temperatures -aspiration precautions -v.duplex Thank you for this consultation. Will continue to follow along with you. Discussed with RN. Subjective Allergies: Coded Allergies: ASPIRIN (Verified Allergy, Unknown, 11/22/17) CODEINE (Verified Allergy, Unknown, 11/22/17) PENICILLINS (Verified Allergy, Unknown, 11/22/17) SULFAMETHOXAZOLE (Verified Allergy, Unknown, 11/22/17) TRIMETHOPRIM (Verified Allergy, Unknown, 11/22/17) Subjective Tm 100.6 at 2l NC no leukocytosis Bcx NTD Objective Vital Signs Last 24 Hour Vital Signs Date Time Temp Pulse Resp B/P (MAP) Pulse Ox O2 Delivery O2 Flow Rate FiO2 11/24/17 09:00 Nasal Cannula 2.0 11/24/17 08:00 100.6 86 22 130/68 (88) 92 100.6 11/24/17 08:00 78 11/24/17 04:00 98.3 69 16 124/64 (84) 94 98.3 11/24/17 04:00 76 11/24/17 00:00 98.2 67 20 109/56 (73) 94 98.2 11/24/17 00:00 77 11/23/17 21:00 Room Air 11/23/17 20:00 89 11/23/17 20:00 98.6 64 16 118/58 (78) 92 98.6 11/23/17 16:00 88 11/23/17 16:00 97.5 88 20 143/68 (93) 95 97.5 Height (Feet): 5 Height (Inches): 9.00 Weight (Pounds): 310 Objective General Appearance: WD/WN, no apparent distress Lines, tubes and drains: peripheral HEENT: normocephalic, atraumatic Neck: non-tender, normal alignment Respiratory/Chest: chest wall non-tender, normal breath sounds Breasts: no masses Cardiovascular/Chest: normal peripheral pulses Abdomen: normal bowel sounds Genitourinary/Rectal: normal genital exam Extremities: normal range of motion 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 Microbiology Date/Time Source Procedure Growth Status 11/22/17 21:30 Blood Blood Culture - Preliminary NO GROWTH AFTER 24 HOURS Resulted 11/22/17 21:15 Blood Blood Culture - Preliminary NO GROWTH AFTER 24 HOURS Resulted 11/22/17 22:30 Rectum - Preliminary Resulted Laboratory Tests Test 11/23/17 15:25 11/23/17 18:00 11/24/17 07:15 Uric Acid 7.4 MG/DL (2.6-7.2) H 7.4 MG/DL (2.6-7.2) H Total Creatine Kinase 798 U/L (26-308) H 696 U/L (26-308) H Urine Color Pale yellow Urine Appearance Clear Urine pH 6 (4.5-8.0) Urine Specific [place] 1.010 (1.005-1.035) Urine Protein 1+ (NEGATIVE) H Urine Glucose (UA) 3+ (NEGATIVE) H Urine Ketones 1+ (NEGATIVE) H Urine Occult Blood Negative (NEGATIVE) Urine Nitrite Negative (NEGATIVE) Urine Bilirubin Negative (NEGATIVE) Urine Urobilinogen Normal MG/DL (0.0-1.0) Urine Leukocyte Esterase Negative (NEGATIVE) Urine RBC 0-2 /HPF (0 - 0) H Urine WBC 0 /HPF (0 - 0) Urine Squamous Epithelial Cells None /LPF (NONE/OCC) Urine Bacteria None /HPF (NONE) Urine Eosinophils None seen Urine Random Sodium 49 mmol/L (20-110) Urine Potassium Timed 31 mmol/L (12-62) White Blood Count 5.0 K/UL (4.8-10.8) Red Blood Count 3.41 M/UL (4.70-6.10) L Hemoglobin 10.3 G/DL (14.2-18.0) L Hematocrit 32.1 % (42.0-52.0) L Mean Corpuscular Volume 94 FL (80-99) Mean Corpuscular Hemoglobin 30.2 PG (27.0-31.0) Mean Corpuscular Hemoglobin Concent 32.0 G/DL (32.0-36.0) Red Cell Distribution Width 13.0 % (11.6-14.8) Platelet Count 213 K/UL (150-450) Mean Platelet Volume 5.7 FL (6.5-10.1) L Neutrophils (%) (Auto) 68.2 % (45.0-75.0) Lymphocytes (%) (Auto) 17.7 % (20.0-45.0) L Monocytes (%) (Auto) 10.2 % (1.0-10.0) H Eosinophils (%) (Auto) 3.1 % (0.0-3.0) H Basophils (%) (Auto) 0.8 % (0.0-2.0) Sodium Level 141 MMOL/L (136-145) Potassium Level 3.8 MMOL/L (3.5-5.1) Chloride Level 102 MMOL/L (98-107) Carbon Dioxide Level 35 MMOL/L (21-32) H Anion Gap 4 mmol/L (5-15) L Blood Urea Nitrogen 33 mg/dL (7-18) H Creatinine 1.6 MG/DL (0.55-1.30) H Estimat Glomerular Filtration Rate 43.3 mL/min (>60) Glucose Level 158 MG/DL (74-106) #H Hemoglobin A1c 9.9 % (4.3-6.0) H Calcium Level 9.2 MG/DL (8.5-10.1) Phosphorus Level 3.6 MG/DL (2.5-4.9) Magnesium Level 2.6 MG/DL (1.8-2.4) H Iron Level 37 ug/dL (50-175) L Total Iron Binding Capacity 374 ug/dL (250-450) Percent Iron Saturation 10 % (15-50) L Unsaturated Iron Binding 337 ug/dL (112-346) Ferritin 193 NG/ML (8-388) Total Bilirubin 0.2 MG/DL (0.2-1.0) Direct Bilirubin < 0.1 MG/DL (0.0-0.3) Aspartate Amino Transf (AST/SGOT) 30 U/L (15-37) Alanine Aminotransferase (ALT/SGPT) 31 U/L (12-78) Alkaline Phosphatase 94 U/L (46-116) C-Reactive Protein, Quantitative 2.9 mg/dL (0.00-0.90) H Total Protein 7.8 G/DL (6.4-8.2) Albumin 2.9 G/DL (3.4-5.0) L Triglycerides Level 294 MG/DL (30-150) H Cholesterol Level 236 MG/DL (< 200) H LDL Cholesterol 158 mg/dL (<100) H HDL Cholesterol 38 MG/DL (40-60) L Cholesterol/HDL Ratio 6.2 (3.3-4.4) H Vitamin B12 Level 627 PG/ML (193-986) Folate 17.0 NG/ML (8.6-58.9) Thyroid Stimulating Hormone (TSH) 2.271 uiU/mL (0.358-3.740) Current Medications Medications (Trade) Dose Ordered Sig/Jayden Route PRN Reason Start Time Stop Time Status Last Admin Dose Admin Amlodipine Besylate (Norvasc) 5 mg DAILY ORAL 11/24/17 12:31 12/24/17 12:30 Aripiprazole (Abilify) 5 mg DAILY ORAL 11/24/17 09:00 12/24/17 08:59 11/24/17 09:50 Divalproex Sodium (Depakote) 750 mg EVERY 12 HOURS ORAL 11/23/17 21:00 12/23/17 20:59 11/24/17 09:50 Escitalopram Oxalate (Lexapro) 10 mg DAILY ORAL 11/24/17 12:32 12/24/17 12:31 Famotidine (Pepcid) 20 mg BID ORAL 11/24/17 11:00 12/24/17 10:59 Gabapentin (Neurontin) 400 mg Q8H ORAL 11/23/17 13:00 12/23/17 12:59 11/24/17 05:24 Heparin Sodium (Porcine) (Heparin 5000 units/ml) 5,000 units EVERY 12 HOURS SUBQ 11/23/17 21:00 12/23/17 20:59 11/24/17 09:49 Iron Sucrose 200 mg/Sodium Chloride 120 ml @ 240 mls/hr ONCE IV 11/24/17 21:00 11/24/17 22:00 Levofloxacin 100 ml @ 100 mls/hr Q24H IVPB 11/23/17 14:00 11/30/17 13:59 11/23/17 14:20 Lorazepam (Ativan) 1 mg Q6H PRN ORAL For Anxiety 11/24/17 04:15 12/01/17 04:14 11/24/17 09:53 Losartan Potassium (Cozaar) 50 mg DAILY ORAL 11/24/17 12:33 12/24/17 12:32 Sodium Chloride 1,000 ml @ 75 mls/hr [id number] IV 11/24/17 11:00 12/24/17 10:59 Tamsulosin HCl (Flomax) 0.4 mg QHS ORAL 11/23/17 21:00 12/23/17 20:59 11/23/17 21:41 Vandana Rucker M.D. Nov 24, 2017 12:28
[2017-11-24] MEDS: Losartan 50mg tab ORAL SCH (13:16)
--- NOTE | 2017-11-24 15:45 | Consultation ---
DATE OF CONSULTATION: 11/24/2017 NOTE: POOR AUDIO CONSULTING PHYSICIAN: Deborah Sosa M.D. HISTORY OF PRESENT ILLNESS: This is a 66-year-old male patient with shortness of breath. The patient has confusion and some disorganized thought process he was admitted to the hospital secondary to shortness of breath. He also has and diminished renal insufficiency, but he also has had diagnosis of bipolar 2 disorder, extreme mood lability, and anxiety. So, there was a daily psychiatric consultation requested because his mood lability has worsened secondary to the stress of his medical illness. ALLERGIES: He has allergies to aspirin, codeine, penicillin, , and trimethoprim. PAST MEDICAL HISTORY: Again, he has a history of diabetes, morbid obesity, fever, shortness of breath, , and renal insufficiency. SOCIAL HISTORY: The patient lives in [facility]. Financially supported by [employer] [facility] and Medicare. SUBSTANCE ABUSE HISTORY: He denies drug and alcohol use. FAMILY PSYCHIATRIC HISTORY: Denies. STRENGTHS: He is motivated to get better. He is healthy. WEAKNESSES: He is impulsive. MENTAL STATUS EXAMINATION: This is a 66-year-old male. Appearance is disheveled. Attitude, irritable and agitated. Affect guarded and restricted. Intellect poor. Mood depressed and anxious. Motor activity, psychomotor agitation. Attention span is poor. Orientation x2. Speech is pressured. Thought process, disorganized and illogical. Thought content, auditory hallucinations and paranoid delusions. Insight and judgment is poor. DIAGNOSES: Bipolar 2. Medical illnesses insufficiency. PLAN: I am actually going to continue this patient on Depakote 750 mg q.12 h., Lexapro 10 mg q.8 h., and Neurontin 400 mg q.8 h. In addition to that, I am also going to treat this patient with Abilify at a dose of 5 mg p.o. daily to stabilize his mood. Discontinue Risperdal as the patient states the Risperdal does not work well for him and then he says it makes him tired and lightheaded. In addition to that, I am also going to start him on Ativan at a dose of 1 mg every 6 hours p.r.n. anxiety and agitation. Provided 20 minutes of cognitive behavioral therapy identify if all negative thoughts more positive thoughts. Twenty minutes of cognitive behavioral therapy provided. Chart reviewed. Discussed with staff. Seen and assessed at the bedside. I would like to thank, Dr. Salinas, for this interesting consultation. Deborah Sosa M.D. DR: KAROL JOB#: [id number] CC:
[2017-11-24 16:00] VITALS: BP 115/58
[2017-11-24] MEDS: NovoLOG Insulin Flexpen SUBQ SCH ×2 (17:09→20:42)
[2017-11-24 20:00] VITALS: BP 114/51
[2017-11-24] MEDS: Tamsulosin 0.4mg cap ORAL SCH (20:37)
[2017-11-24] MEDS ORDERED: Iron Sucrose 200 MG in NS 110 ML IV SCH (21:00)
[2017-11-24] MEDS: Brimonidine 0.2% Opth Sol BOTH EYES SCH (22:13)
[2017-11-25] VITALS (7 sets, daily range): BP systolic 119–163; BP diastolic 59–76
[2017-11-25] MEDS: Brimonidine 0.2% Opth Sol BOTH EYES SCH ×3 (06:08→21:42)
[2017-11-25] MEDS: NovoLOG Insulin Flexpen SUBQ SCH ×4 (06:14→20:44)
[2017-11-25 06:35] LABS: BASOPHILS % (AUTO) 1.2 % (0.0-2.0); EOSINOPHILS % (AUTO) 4.6 % (0.0-3.0); HEMATOCRIT 32.2 % (42.0-52.0); HEMOGLOBIN 10.8 G/DL (14.2-18.0); LYMPHOCYTES % (AUTO) 19.4 % (20.0-45.0); MEAN CORPUSCULAR VOLUME 94 FL (80-99); MONOCYTES % (AUTO) 9.1 % (1.0-10.0); NEUTROPHILS % (AUTO) 65.7 % (45.0-75.0); PLATELET COUNT 209 K/UL (150-450); RED BLOOD COUNT 3.42 M/UL (4.70-6.10); RED CELL DISTRIBUTION WIDTH 13.1 % (11.6-14.8); WHITE BLOOD COUNT 4.5 K/UL (4.8-10.8)
[2017-11-25 06:39] LABS: ANION GAP 5 mmol/L (5-15); BLOOD UREA NITROGEN 30 mg/dL (7-18); CALCIUM 9.2 MG/DL (8.5-10.1); CARBON DIOXIDE 33 MMOL/L (21-32); CHLORIDE 104 MMOL/L (98-107); CREATININE 1.5 MG/DL (0.55-1.30); SODIUM 142 MMOL/L (136-145)
--- NOTE | 2017-11-25 07:15 | Pulmonology Progress Note ---
Assessment/Plan Assessment/Plan ASSESSMENT Acute encephalopathy Dementia bronchitis possible pneumonia COPD acute renal failure on chronic renal disease likely diabetic nephropathy Hyperkalemia Hypertension morbid obesity anemia mixed hyperlipidemia DM out of control PLAN OF CARE O2, HHN prn Abx, sputum cx , blood cx negative prel ID consult Fup with CXR DVT prophylaxis ECHO with grossly preserved ejection fraction , tech.difficult study BP management with CCB and ARB BS management with SSI, [id number] not at goal monitor renal parameters and electrolytes , correct electrolytes as needed, avoid nephrotoxics creat slowly trending down acute encephalopathy possibly due to infectious process, superimposed on chronic dementia and bipolar disorder. mental status improving,partient conversing, answering most of questions coherently lipid panel with mixed hyperlipidemia educated on low fat low cholesterol diet started on statin, check lipid panel CK and LFT in 3 months DNR/DNI status case discussed and evaluated by supervising physician Subjective Allergies: Coded Allergies: ASPIRIN (Verified Allergy, Unknown, 11/22/17) PENICILLINS (Verified Allergy, Unknown, 11/22/17) SULFAMETHOXAZOLE (Verified Allergy, Unknown, 11/22/17) TRIMETHOPRIM (Verified Allergy, Unknown, 11/22/17) Subjective afebrile no leukocytosis pulse ox currently stable on O2 via NC Objective Last 24 Hour Vital Signs Date Time Temp Pulse Resp B/P (MAP) Pulse Ox O2 Delivery O2 Flow Rate FiO2 11/25/17 04:00 98.3 71 18 126/59 (81) 93 98.3 11/25/17 00:00 97.9 79 20 119/59 (79) 93 97.9 11/24/17 21:00 Nasal Cannula 2.0 11/24/17 20:00 98.9 75 16 114/51 (72) 91 98.9 11/24/17 16:00 98.2 77 20 115/58 (77) 90 98.2 11/24/17 13:22 81 122/53 11/24/17 13:16 122/53 11/24/17 12:00 99.4 81 20 122/53 (76) 93 99.4 11/24/17 09:00 Nasal Cannula 2.0 11/24/17 08:00 100.6 86 22 130/68 (88) 92 100.6 11/24/17 08:00 78 Intake and Output 11/24/17 11/25/17 19:00 07:00 Intake Total 435 ml 1305 ml Balance 435 ml 1305 ml Intake Oral 360 ml 360 ml IV Total 75 ml 945 ml # Voids 6 3 # Bowel Movements 1 General Appearance: no acute distress, other - morbidly obese male in NAD HEENT: normocephalic, atraumatic Respiratory/Chest: chest wall non-tender, no accessory muscle use, decreased breath sounds Cardiovascular: normal rate Abdomen: normal bowel sounds, soft, non tender - obese Extremities: pedal pulses normal Neurologic/Psychiatric: responsive Microbiology Date/Time Source Procedure Growth Status 11/22/17 21:30 Blood Blood Culture - Preliminary NO GROWTH AFTER 48 HOURS Resulted 11/22/17 21:15 Blood Blood Culture - Preliminary NO GROWTH AFTER 48 HOURS Resulted 11/22/17 22:30 Nasal Nares MRSA Culture - Final NO METHICILLIN RESISTANT STAPH AUREUS... Complete 11/22/17 22:30 Rectum - Preliminary Resulted Laboratory Tests 11/24/17 07:15: White Blood Count 5.0, Red Blood Count 3.41L, Hemoglobin 10.3L, Hematocrit 32.1L , Mean Corpuscular Volume 94, Mean Corpuscular Hemoglobin 30.2, Mean Corpuscular Hemoglobin Concent 32.0, Red Cell Distribution Width 13.0, Platelet Count 213, Mean Platelet Volume 5.7L, Neutrophils (%) (Auto) 68.2, Lymphocytes ( %) (Auto) 17.7L, Monocytes (%) (Auto) 10.2H, Eosinophils (%) (Auto) 3.1H, Basophils (%) (Auto) 0.8, Sodium Level 141, Potassium Level 3.8, Chloride Level 102, Carbon Dioxide Level 35H, Anion Gap 4L, Blood Urea Nitrogen 33H, Creatinine 1.6H, Estimat Glomerular Filtration Rate 43.3, Glucose Level 158#H, Hemoglobin A1c 9.9H, Uric Acid 7.4H, Calcium Level 9.2, Phosphorus Level 3.6, Magnesium Level 2.6H, Iron Level 37L, Total Iron Binding Capacity 374, Percent Iron Saturation 10L, Unsaturated Iron Binding 337, Ferritin 193, Total Bilirubin 0.2, Direct Bilirubin < 0.1, Aspartate Amino Transf (AST/SGOT) 30, Alanine Aminotransferase (ALT/SGPT) 31, Alkaline Phosphatase 94, Total Creatine Kinase 696H, C-Reactive Protein, Quantitative 3.0H, Total Protein 7.8, Albumin 2.9L, Triglycerides Level 294H, Cholesterol Level 236H, LDL Cholesterol 158H, HDL Cholesterol 38L, Cholesterol/HDL Ratio 6.2H, Vitamin B12 Level 627, Folate 17.0, Thyroid Stimulating Hormone (TSH) 2.271 11/25/17 05:15: White Blood Count 4.5L, Red Blood Count 3.42L, Hemoglobin 10.8L, Hematocrit 32.2L, Mean Corpuscular Volume 94, Mean Corpuscular Hemoglobin 31.6H, Mean Corpuscular Hemoglobin Concent 33.6, Red Cell Distribution Width 13.1, Platelet Count 209, Mean Platelet Volume 5.4L, Neutrophils (%) (Auto) 65.7, Lymphocytes ( %) (Auto) 19.4L, Monocytes (%) (Auto) 9.1, Eosinophils (%) (Auto) 4.6H, Basophils (%) (Auto) 1.2, Sodium Level 142, Potassium Level 4.0, Chloride Level 104, Carbon Dioxide Level 33H, Anion Gap 5, Blood Urea Nitrogen 30H, Creatinine 1.5H, Estimat Glomerular Filtration Rate 46.7, Glucose Level 190H, Uric Acid [ Pending], Calcium Level 9.2, Phosphorus Level [Pending], Magnesium Level [ Pending], Total Bilirubin [Pending], Direct Bilirubin [Pending], Aspartate Amino Transf (AST/SGOT) [Pending], Alanine Aminotransferase (ALT/SGPT) [Pending] , Alkaline Phosphatase [Pending], Total Creatine Kinase [Pending], Total Protein [Pending], Albumin [Pending], Gamma Glutamyl Transpeptidase [Pending], Pro-B-Type Natriuretic Peptide [Pending] Current Medications Medications (Trade) Dose Ordered Sig/Jayden Route PRN Reason Start Time Stop Time Status Last Admin Dose Admin Amlodipine Besylate (Norvasc) 5 mg DAILY ORAL 11/24/17 12:31 12/24/17 12:30 11/24/17 13:22 Aripiprazole (Abilify) 5 mg DAILY ORAL 11/24/17 09:00 12/24/17 08:59 11/24/17 09:50 Atorvastatin Calcium (Lipitor) 10 mg BEDTIME ORAL 11/24/17 21:00 12/24/17 20:59 11/24/17 20:37 Brimonidine Tartrate (Alphagan) 1 drop Q8HR BOTH EYES 11/24/17 22:00 12/24/17 21:59 11/25/17 06:08 Dextrose (Dextrose 50%) 25 ml STAT PRN IV Hypoglycemia 11/24/17 16:15 12/24/17 16:14 Dextrose (Dextrose 50%) 50 ml STAT PRN IV Hypoglycemia 11/24/17 16:15 12/24/17 16:14 Divalproex Sodium (Depakote) 750 mg EVERY 12 HOURS ORAL 11/23/17 21:00 12/23/17 20:59 11/24/17 20:38 Escitalopram Oxalate (Lexapro) 10 mg DAILY ORAL 11/24/17 12:32 12/24/17 12:31 11/24/17 13:15 Famotidine (Pepcid) 20 mg BID ORAL 11/24/17 11:00 12/24/17 10:59 11/24/17 18:16 Gabapentin (Neurontin) 400 mg Q8H ORAL 11/23/17 13:00 12/23/17 12:59 11/25/17 06:09 Heparin Sodium (Porcine) (Heparin 5000 units/ml) 5,000 units EVERY 12 HOURS SUBQ 11/23/17 21:00 12/23/17 20:59 11/24/17 20:39 Insulin Aspart (NovoLOG) BEFORE MEALS AND HS SUBQ 11/24/17 16:30 12/24/17 16:29 11/25/17 06:14 Levofloxacin 100 ml @ 100 mls/hr Q24H IVPB 11/23/17 14:00 11/30/17 13:59 11/24/17 13:15 Lorazepam (Ativan) 1 mg Q6H PRN ORAL For Anxiety 11/24/17 04:15 12/01/17 04:14 11/24/17 09:53 Losartan Potassium (Cozaar) 50 mg DAILY ORAL 11/24/17 12:33 12/24/17 12:32 11/24/17 13:16 Sodium Chloride 1,000 ml @ 75 mls/hr [id number] IV 11/24/17 11:00 12/24/17 10:59 11/24/17 13:11 Tamsulosin HCl (Flomax) 0.4 mg QHS ORAL 11/23/17 21:00 12/23/17 20:59 11/24/17 20:37 Aletha Lindquist NP Nov 25, 2017 07:15
[2017-11-25 07:54] LABS: BILIRUBIN,DIRECT < 0.1 MG/DL (0.0-0.3); PHOSPHORUS 3.9 MG/DL (2.5-4.9)
[2017-11-25 07:55] LABS: ALANINE AMINOTRANSFERASE 34 U/L (12-78); ALBUMIN 2.9 G/DL (3.4-5.0); ALKALINE PHOSPHATASE 99 U/L (46-116); ASPARTATE AMINO TRANSFERASE 28 U/L (15-37); BILIRUBIN,TOTAL 0.2 MG/DL (0.2-1.0); CREATINE KINASE 299 U/L (26-308); GAMMA GLUTAMYL TRANSPEPTIDASE 5 U/L (5-85)
[2017-11-25] MEDS: Losartan 50mg tab ORAL SCH (09:36)
[2017-11-25] MEDS: Heparin 5000 units/ml inj SUBQ SCH ×3 (09:41→20:55)
[2017-11-25] MEDS ORDERED: Albuterol/Ipratropium 3ml neb HHN PRN (11:15)
--- NOTE | 2017-11-25 11:59 | General Progress Note ---
Assessment/Plan Status: stable Assessment/Plan INTERNAL MEDICINE PROGRESS NOTE Covering for Dr. Salinas # Renal insufficiency # Pneumonia # DM # Morbid obesity # Dementia # Acute encephalopathy # Fever # SOB Assessment/Plan o2 pulm tx abx ot pt diet cbc bmp am dc plan Subjective Date patient seen: Nov 25, 2017 ROS Limited/Unobtainable: Yes Allergies: Coded Allergies: ASPIRIN (Verified Allergy, Unknown, 11/22/17) CODEINE (Verified Allergy, Unknown, 11/22/17) PENICILLINS (Verified Allergy, Unknown, 11/22/17) SULFAMETHOXAZOLE (Verified Allergy, Unknown, 11/22/17) TRIMETHOPRIM (Verified Allergy, Unknown, 11/22/17) All Systems: reviewed and negative except above Subjective Pt awake and alert. No acute events. Vitals are stable. Objective Last 24 Hour Vital Signs Date Time Temp Pulse Resp B/P (MAP) Pulse Ox O2 Delivery O2 Flow Rate FiO2 11/25/17 09:36 127/68 11/25/17 09:35 79 127/68 11/25/17 08:20 Nasal Cannula 2.0 11/25/17 08:00 97.0 79 20 127/68 (87) 97 97.0 11/25/17 04:00 98.3 71 18 126/59 (81) 93 98.3 11/25/17 00:00 97.9 79 20 119/59 (79) 93 97.9 11/24/17 21:00 Nasal Cannula 2.0 11/24/17 20:00 98.9 75 16 114/51 (72) 91 98.9 11/24/17 16:00 98.2 77 20 115/58 (77) 90 98.2 11/24/17 13:22 81 122/53 11/24/17 13:16 122/53 11/24/17 12:00 99.4 81 20 122/53 (76) 93 99.4 Intake and Output 11/24/17 11/25/17 19:00 07:00 Intake Total 435 ml 1305 ml Balance 435 ml 1305 ml Intake Oral 360 ml 360 ml IV Total 75 ml 945 ml # Voids 6 3 # Bowel Movements 1 Laboratory Tests 11/25/17 05:15: White Blood Count 4.5L, Red Blood Count 3.42L, Hemoglobin 10.8L, Hematocrit 32.2L, Mean Corpuscular Volume 94, Mean Corpuscular Hemoglobin 31.6H, Mean Corpuscular Hemoglobin Concent 33.6, Red Cell Distribution Width 13.1, Platelet Count 209, Mean Platelet Volume 5.4L, Neutrophils (%) (Auto) 65.7, Lymphocytes ( %) (Auto) 19.4L, Monocytes (%) (Auto) 9.1, Eosinophils (%) (Auto) 4.6H, Basophils (%) (Auto) 1.2, Sodium Level 142, Potassium Level 4.0, Chloride Level 104, Carbon Dioxide Level 33H, Anion Gap 5, Blood Urea Nitrogen 30H, Creatinine 1.5H, Estimat Glomerular Filtration Rate 46.7, Glucose Level 190H, Uric Acid 6.9 , Calcium Level 9.2, Phosphorus Level 3.9, Magnesium Level 2.2, Total Bilirubin 0.2, Direct Bilirubin < 0.1, Gamma Glutamyl Transpeptidase 5, Aspartate Amino Transf (AST/SGOT) 28, Alanine Aminotransferase (ALT/SGPT) 34, Alkaline Phosphatase 99, Total Creatine Kinase 299, Pro-B-Type Natriuretic Peptide 191H, Total Protein 7.9, Albumin 2.9L Height (Feet): 5 Height (Inches): 9.00 Weight (Pounds): 310 General Appearance: no apparent distress, alert EENT: PERRL/EOMI Neck: normal alignment Cardiovascular: normal peripheral pulses Respiratory/Chest: no respiratory distress Abdomen: soft Yaniv Storey MD Nov 25, 2017 11:59
--- NOTE | 2017-11-25 13:59 | Infectious Diseases Prog Note ---
Assessment/Plan Assessment/Plan Abx: Levaquin 11/22- Assessment: Bronchitis vs PNA -CXR: There are bilateral basilar atelectatic changes. The lungs and pleural spaces are otherwise clear Low grade fever; imporing -no leukocytosis -u/a neg; ucx p -Bcx NTD MACARIO Vs CKD HTN COPD GERD DM2 morbid obesity Dementia SNF resident Plan: -Continue Levaquin #4/5 -f/u cx -Monitor CBC/CMP, temperatures -aspiration precautions -v.duplex- unable to be done due to obesity Thank you for this consultation. Will continue to follow along with you. Discussed with RN. Subjective Allergies: Coded Allergies: ASPIRIN (Verified Allergy, Unknown, 11/22/17) CODEINE (Verified Allergy, Unknown, 11/22/17) PENICILLINS (Verified Allergy, Unknown, 11/22/17) SULFAMETHOXAZOLE (Verified Allergy, Unknown, 11/22/17) TRIMETHOPRIM (Verified Allergy, Unknown, 11/22/17) Subjective afebrile in 24hrs transferre to Med surg Bx NTD Objective Vital Signs Last 24 Hour Vital Signs Date Time Temp Pulse Resp B/P (MAP) Pulse Ox O2 Delivery O2 Flow Rate FiO2 11/25/17 09:36 127/68 11/25/17 09:35 79 127/68 11/25/17 08:20 Nasal Cannula 2.0 11/25/17 08:00 97.0 79 20 127/68 (87) 97 97.0 11/25/17 04:00 98.3 71 18 126/59 (81) 93 98.3 11/25/17 00:00 97.9 79 20 119/59 (79) 93 97.9 11/24/17 21:00 Nasal Cannula 2.0 11/24/17 20:00 98.9 75 16 114/51 (72) 91 98.9 11/24/17 16:00 98.2 77 20 115/58 (77) 90 98.2 Height (Feet): 5 Height (Inches): 9.00 Weight (Pounds): 310 Objective General Appearance: WD/WN, no apparent distress Lines, tubes and drains: peripheral HEENT: normocephalic, atraumatic Neck: non-tender, normal alignment Respiratory/Chest: chest wall non-tender, normal breath sounds Breasts: no masses Cardiovascular/Chest: normal peripheral pulses Abdomen: normal bowel sounds Genitourinary/Rectal: normal genital exam Extremities: normal range of motion 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 Complete 11/22/17 22:30 Rectum - Final NO CARBAPENEM-RESISTANT ENTEROBACTERI... Complete 11/22/17 22:30 Rectum VRE Culture - Final Enterococcus Faecalis - Vre Complete Laboratory Tests Test 11/25/17 05:15 White Blood Count 4.5 K/UL (4.8-10.8) L Red Blood Count 3.42 M/UL (4.70-6.10) L Hemoglobin 10.8 G/DL (14.2-18.0) L Hematocrit 32.2 % (42.0-52.0) L Mean Corpuscular Volume 94 FL (80-99) Mean Corpuscular Hemoglobin 31.6 PG (27.0-31.0) H Mean Corpuscular Hemoglobin Concent 33.6 G/DL (32.0-36.0) Red Cell Distribution Width 13.1 % (11.6-14.8) Platelet Count 209 K/UL (150-450) Mean Platelet Volume 5.4 FL (6.5-10.1) L Neutrophils (%) (Auto) 65.7 % (45.0-75.0) Lymphocytes (%) (Auto) 19.4 % (20.0-45.0) L Monocytes (%) (Auto) 9.1 % (1.0-10.0) Eosinophils (%) (Auto) 4.6 % (0.0-3.0) H Basophils (%) (Auto) 1.2 % (0.0-2.0) Sodium Level 142 MMOL/L (136-145) Potassium Level 4.0 MMOL/L (3.5-5.1) Chloride Level 104 MMOL/L (98-107) Carbon Dioxide Level 33 MMOL/L (21-32) H Anion Gap 5 mmol/L (5-15) Blood Urea Nitrogen 30 mg/dL (7-18) H Creatinine 1.5 MG/DL (0.55-1.30) H Estimat Glomerular Filtration Rate 46.7 mL/min (>60) Glucose Level 190 MG/DL (74-106) H Uric Acid 6.9 MG/DL (2.6-7.2) Calcium Level 9.2 MG/DL (8.5-10.1) Phosphorus Level 3.9 MG/DL (2.5-4.9) Magnesium Level 2.2 MG/DL (1.8-2.4) Total Bilirubin 0.2 MG/DL (0.2-1.0) Direct Bilirubin < 0.1 MG/DL (0.0-0.3) Gamma Glutamyl Transpeptidase 5 U/L (5-85) Aspartate Amino Transf (AST/SGOT) 28 U/L (15-37) Alanine Aminotransferase (ALT/SGPT) 34 U/L (12-78) Alkaline Phosphatase 99 U/L (46-116) Total Creatine Kinase 299 U/L (26-308) Pro-B-Type Natriuretic Peptide 191 pg/mL (0-125) H Total Protein 7.9 G/DL (6.4-8.2) Albumin 2.9 G/DL (3.4-5.0) L Current Medications Medications (Trade) Dose Ordered Sig/Jayden Route PRN Reason Start Time Stop Time Status Last Admin Dose Admin Albuterol/ Ipratropium (Albuterol/ Ipratropium) 3 ml Q4H PRN HHN Shortness of Breath 11/25/17 11:15 11/30/17 11:14 Amlodipine Besylate (Norvasc) 5 mg DAILY ORAL 11/24/17 12:31 12/24/17 12:30 11/25/17 09:35 Aripiprazole (Abilify) 5 mg DAILY ORAL 11/24/17 09:00 12/24/17 08:59 11/25/17 09:35 Atorvastatin Calcium (Lipitor) 10 mg BEDTIME ORAL 11/24/17 21:00 12/24/17 20:59 11/24/17 20:37 Brimonidine Tartrate (Alphagan) 1 drop Q8HR BOTH EYES 11/24/17 22:00 12/24/17 21:59 11/25/17 13:49 Dextrose (Dextrose 50%) 25 ml STAT PRN IV Hypoglycemia 7/27/18 16:15 12/24/17 16:14 Dextrose (Dextrose 50%) 50 ml STAT PRN IV Hypoglycemia 11/24/17 16:15 12/24/17 16:14 Divalproex Sodium (Depakote) 750 mg EVERY 12 HOURS ORAL 11/23/17 21:00 12/23/17 20:59 11/25/17 09:36 Escitalopram Oxalate (Lexapro) 10 mg DAILY ORAL 11/24/17 12:32 12/24/17 12:31 11/25/17 09:35 Famotidine (Pepcid) 20 mg BID ORAL 11/24/17 11:00 12/24/17 10:59 11/25/17 09:36 Gabapentin (Neurontin) 400 mg Q8H ORAL 11/23/17 13:00 12/23/17 12:59 11/25/17 12:22 Heparin Sodium (Porcine) (Heparin 5000 units/ml) 5,000 units EVERY 12 HOURS SUBQ 11/23/17 21:00 12/23/17 20:59 11/25/17 09:41 Insulin Aspart (NovoLOG) BEFORE MEALS AND HS SUBQ 11/24/17 16:30 12/24/17 16:29 11/25/17 12:16 Levofloxacin 100 ml @ 100 mls/hr Q24H IVPB 11/23/17 14:00 11/30/17 13:59 11/25/17 13:49 Lorazepam (Ativan) 1 mg Q6H PRN ORAL For Anxiety 11/24/17 04:15 12/01/17 04:14 11/24/17 09:53 Losartan Potassium (Cozaar) 50 mg DAILY ORAL 11/24/17 12:33 12/24/17 12:32 11/25/17 09:36 Sodium Chloride 1,000 ml @ 75 mls/hr [id number] IV 11/24/17 11:00 12/24/17 10:59 11/25/17 12:22 Tamsulosin HCl (Flomax) 0.4 mg QHS ORAL 11/23/17 21:00 12/23/17 20:59 11/24/17 20:37 Vandana Rucker M.D. Nov 25, 2017 13:59
--- NOTE | 2017-11-25 14:25 | Nephrology Progress Note ---
Assessment/Plan Problem List: (1) Renal insufficiency (2) Diabetes mellitus (3) Morbid obesity (4) Dementia (5) Acute encephalopathy Assessment - Renal failure- acute on chronic- - Proteinuria, Diabetic nephropathy - Pneumonia- - Obesity- - DM OOC - Dementia - Encephalopathy - Anemia, Low Iron Plan Slow Hydrate- IV Iron- monitor renal parameters- Avoid Nephrotoxics antibiotics metformin and fish oil per orders Objective Objective Last 24 Hour Vital Signs Date Time Temp Pulse Resp B/P (MAP) Pulse Ox O2 Delivery O2 Flow Rate FiO2 11/25/17 09:36 127/68 11/25/17 09:35 79 127/68 11/25/17 08:20 Nasal Cannula 2.0 11/25/17 08:00 97.0 79 20 127/68 (87) 97 97.0 11/25/17 04:00 98.3 71 18 126/59 (81) 93 98.3 11/25/17 00:00 97.9 79 20 119/59 (79) 93 97.9 11/24/17 21:00 Nasal Cannula 2.0 11/24/17 20:00 98.9 75 16 114/51 (72) 91 98.9 11/24/17 16:00 98.2 77 20 115/58 (77) 90 98.2 Intake and Output 11/24/17 11/25/17 19:00 07:00 Intake Total 435 ml 1305 ml Balance 435 ml 1305 ml Intake Oral 360 ml 360 ml IV Total 75 ml 945 ml # Voids 6 3 # Bowel Movements 1 Laboratory Tests 11/25/17 05:15: White Blood Count 4.5L, Red Blood Count 3.42L, Hemoglobin 10.8L, Hematocrit 32.2L, Mean Corpuscular Volume 94, Mean Corpuscular Hemoglobin 31.6H, Mean Corpuscular Hemoglobin Concent 33.6, Red Cell Distribution Width 13.1, Platelet Count 209, Mean Platelet Volume 5.4L, Neutrophils (%) (Auto) 65.7, Lymphocytes ( %) (Auto) 19.4L, Monocytes (%) (Auto) 9.1, Eosinophils (%) (Auto) 4.6H, Basophils (%) (Auto) 1.2, Sodium Level 142, Potassium Level 4.0, Chloride Level 104, Carbon Dioxide Level 33H, Anion Gap 5, Blood Urea Nitrogen 30H, Creatinine 1.5H, Estimat Glomerular Filtration Rate 46.7, Glucose Level 190H, Uric Acid 6.9 , Calcium Level 9.2, Phosphorus Level 3.9, Magnesium Level 2.2, Total Bilirubin 0.2, Direct Bilirubin < 0.1, Gamma Glutamyl Transpeptidase 5, Aspartate Amino Transf (AST/SGOT) 28, Alanine Aminotransferase (ALT/SGPT) 34, Alkaline Phosphatase 99, Total Creatine Kinase 299, Pro-B-Type Natriuretic Peptide 191H, Total Protein 7.9, Albumin 2.9L Height (Feet): 5 Height (Inches): 9.00 Weight (Pounds): 310 Dawson Doty MD Nov 25, 2017 14:25
[2017-11-25] MEDS ORDERED: 1/2 NS 1000ml IV ONE ×2 (15:32→17:54)
[2017-11-25] MEDS: metFORMIN 500mg tab ORAL SCH (16:49)
[2017-11-25] MEDS: Iron Sucrose 100 MG in NS 55 ML IV SCH (20:32)
[2017-11-25] MEDS: Tamsulosin 0.4mg cap ORAL SCH (20:41)
--- NOTE | 2017-11-25 22:15 | Consultation ---
DATE OF CONSULTATION: 11/24/2017 PSYCHOTHERAPY CONSULTATION PROGRESS NOTE CONSULTING PHYSICIAN: Tess Simon M.D. TREATING ATTENDING PHYSICIAN: Joe Salinas D.O. HISTORY: The patient is a 66-year-old male patient from [facility]. The patient was brought to the hospital for shortness of breath, pneumonia, sepsis, neuropathy. The patient had been agitated and irritable, very anxious, disorganized and for these reasons he was referred for psychotherapeutic services. This clinician assessed the patient. The patient is very agitated and is screaming and states that he wanted a different room with a window and intolerance. He denies suicidal or homicidal thoughts of ideation. Denies any auditory or visual hallucinations, however, he is extremely agitated and helpless. Has a history of bipolar 2 disorder. PAST MEDICAL HISTORY: At this time includes history of pneumonia, morbid obesity, diabetes and encephalopathy. ALLERGIES: The patient is allergic to aspirin, codeine, penicillin, Bactrim. SUBSTANCE ABUSE HISTORY: Denies any history of alcohol use or illicit substance use. PSYCHIATRIC HISTORY: History of bipolar disorder and past history of psychotropic medications in the past. SOCIAL HISTORY: The patient is a 66-year-old male patient from [facility]. Financially supported by [employer]. Single male patient. MENTAL STATUS EXAMINATION: The patient is alert and oriented to person and place. Mood is irritable. Affect is labile. Thought process is disorganized. Thought content is paranoid. Poor attention and concentration. Poor insight and judgement and impulse control. DIAGNOSIS: Bipolar 2 disorder. The patient is provided psychotherapy, working on compliance with coping skills. Emphasized the patient with reality orientation. Encouraging the patient to participate in treatment milieu. . Continue with behavioral management. This clinician has reviewed the patient's chart and discussed the treatment with treatment team. Tess Simon PsyD. DR: BABATUNDE JOB#: [id number] CC:
[2017-11-26] VITALS: BP 130/70
[2017-11-26 04:00] VITALS: BP 140/82
[2017-11-26] MEDS: metFORMIN 500mg tab ORAL SCH (06:10)
[2017-11-26] MEDS: Brimonidine 0.2% Opth Sol BOTH EYES SCH ×3 (06:10→22:16)
[2017-11-26] MEDS: NovoLOG Insulin Flexpen SUBQ SCH ×4 (06:18→22:16)
[2017-11-26] MEDS: Losartan 50mg tab ORAL SCH (08:25)
[2017-11-26] MEDS: Heparin 5000 units/ml inj SUBQ SCH ×2 (08:26→21:00)
[2017-11-26 08:27] VITALS: BP 102/62
--- NOTE | 2017-11-26 08:42 | Pulmonology Progress Note ---
Assessment/Plan Assessment/Plan ASSESSMENT Acute encephalopathy Dementia bronchitis possible pneumonia COPD acute renal failure on chronic renal disease likely diabetic nephropathy Hyperkalemia Hypertension morbid obesity anemia mixed hyperlipidemia DM out of control PLAN OF CARE O2, HHN prn Abx, sputum cx , blood cx negative prel ID follows Fup with CXR in am DVT prophylaxis unable to do Venous due to morbid obesity ECHO with grossly preserved ejection fraction , tech.difficult study BP management with CCB and ARB BS management with SSI, [id number] not at goal, c creat elevated, on metformin, will stop Metformin and add Starlix and SSI prn monitor renal parameters and electrolytes , correct electrolytes as needed, avoid nephrotoxics creat slowly trending down nephro follows acute encephalopathy possibly due to infectious process, superimposed on chronic dementia and bipolar disorder. lipid panel with mixed hyperlipidemia educated on low fat low cholesterol diet started on statin, check lipid panel CK and LFT in 3 months DNR/DNI status case discussed and evaluated by supervising physician Subjective Allergies: Coded Allergies: ASPIRIN (Verified Allergy, Unknown, 11/22/17) PENICILLINS (Verified Allergy, Unknown, 11/22/17) SULFAMETHOXAZOLE (Verified Allergy, Unknown, 11/22/17) TRIMETHOPRIM (Verified Allergy, Unknown, 11/22/17) Subjective afebrile no leukocytosis pulse ox currently stable on O2 via NC Objective Last 24 Hour Vital Signs Date Time Temp Pulse Resp B/P (MAP) Pulse Ox O2 Delivery O2 Flow Rate FiO2 11/26/17 08:27 98.2 68 18 102/62 (75) 97 98.2 11/26/17 08:25 140/82 11/26/17 08:25 81 140/82 11/26/17 04:00 98.1 81 19 140/82 (101) 97 98.1 11/26/17 00:00 97.9 75 18 130/70 (90) 97 97.9 11/25/17 21:04 67 18 Nasal Cannula 2.0 28 11/25/17 21:00 Nasal Cannula 2.0 11/25/17 20:00 98.5 53 17 122/63 (82) 100 98.5 11/25/17 16:00 98.4 88 20 121/73 (89) 94 98.4 11/25/17 14:59 97.3 83 20 163/76 (105) 94 97.3 11/25/17 12:00 97.3 83 20 163/76 (105) 94 97.3 11/25/17 12:00 97.3 83 20 163/76 (105) 94 97.3 11/25/17 09:36 127/68 11/25/17 09:35 79 127/68 Intake and Output 11/25/17 11/26/17 19:00 07:00 Intake Total 360 ml 735 ml Balance 360 ml 735 ml Intake Oral 360 ml IV Total 735 ml # Voids 1 2 # Bowel Movements 1 Objective General Appearance: no acute distress, other - morbidly obese male in NAD HEENT: normocephalic, atraumatic Respiratory/Chest: chest wall non-tender, no accessory muscle use, decreased breath sounds Cardiovascular: normal rate Abdomen: normal bowel sounds, soft, non tender - obese Extremities: pedal pulses normal Neurologic/Psychiatric: responsive Current Medications Medications (Trade) Dose Ordered Sig/Jayden Route PRN Reason Start Time Stop Time Status Last Admin Dose Admin Albuterol/ Ipratropium (Albuterol/ Ipratropium) 3 ml Q4H PRN HHN Shortness of Breath 11/25/17 11:15 11/30/17 11:14 Amlodipine Besylate (Norvasc) 5 mg DAILY ORAL 11/24/17 12:31 12/24/17 12:30 11/26/17 08:25 Aripiprazole (Abilify) 5 mg DAILY ORAL 11/24/17 09:00 12/24/17 08:59 11/26/17 08:25 Atorvastatin Calcium (Lipitor) 10 mg BEDTIME ORAL 11/24/17 21:00 12/24/17 20:59 11/25/17 20:41 Brimonidine Tartrate (Alphagan) 1 drop Q8HR BOTH EYES 11/24/17 22:00 12/24/17 21:59 11/26/17 06:10 Dextrose (Dextrose 50%) 25 ml STAT PRN IV Hypoglycemia 11/24/17 16:15 12/24/17 16:14 Dextrose (Dextrose 50%) 50 ml STAT PRN IV Hypoglycemia 11/24/17 16:15 12/24/17 16:14 Divalproex Sodium (Depakote) 750 mg EVERY 12 HOURS ORAL 11/23/17 21:00 12/23/17 20:59 11/26/17 08:25 Escitalopram Oxalate (Lexapro) 10 mg DAILY ORAL 11/24/17 12:32 12/24/17 12:31 11/26/17 08:25 Famotidine (Pepcid) 20 mg BID ORAL 11/24/17 11:00 12/24/17 10:59 11/26/17 08:25 Fish Oil (Fish Oil) 1,000 mg DAILY ORAL 11/26/17 09:00 12/26/17 08:59 11/26/17 08:25 Gabapentin (Neurontin) 400 mg Q8H ORAL 11/23/17 13:00 12/23/17 12:59 11/26/17 06:10 Heparin Sodium (Porcine) (Heparin 5000 units/ml) 5,000 units EVERY 12 HOURS SUBQ 11/23/17 21:00 12/23/17 20:59 11/26/17 08:26 Insulin Aspart (NovoLOG) BEFORE MEALS AND HS SUBQ 11/24/17 16:30 12/24/17 16:29 11/26/17 06:18 Iron Sucrose 100 mg/Sodium Chloride 60 ml @ 240 mls/hr BEDTIME IV 11/25/17 21:00 11/29/17 21:14 11/25/17 20:32 Levofloxacin (Levaquin) 500 mg ONCE ORAL 11/26/17 14:00 11/26/17 15:00 Lorazepam (Ativan) 1 mg Q6H PRN ORAL For Anxiety 11/24/17 04:15 12/01/17 04:14 11/24/17 09:53 Losartan Potassium (Cozaar) 50 mg DAILY ORAL 11/24/17 12:33 12/24/17 12:32 11/26/17 08:25 Metformin HCl (Glucophage) 500 mg TIAC ORAL 11/25/17 16:30 12/25/17 16:29 11/26/17 06:10 Sodium Chloride 1,000 ml @ 75 mls/hr [id number] IV 11/24/17 11:00 12/24/17 10:59 11/26/17 04:15 Tamsulosin HCl (Flomax) 0.4 mg QHS ORAL 11/23/17 21:00 12/23/17 20:59 11/25/17 20:41 Aletha Lindquist [employer] Nov 26, 2017 08:42
[2017-11-26 12:25] VITALS: BP 127/63
--- NOTE | 2017-11-26 12:35 | Nephrology Progress Note ---
Assessment/Plan Problem List: (1) Renal insufficiency (2) Diabetes mellitus (3) Morbid obesity (4) Dementia (5) Acute encephalopathy Assessment - Renal failure- acute on chronic- - Proteinuria, Diabetic nephropathy - Pneumonia- - Obesity- - DM OOC - Dementia - Encephalopathy - Anemia, Low Iron Plan no labs today Slow Hydrate- IV Iron- monitor renal parameters- Avoid Nephrotoxics antibiotics metformin now changed to starlix by [employer] fish oil per orders Subjective ROS Limited/Unobtainable: No Constitutional: Reports: malaise Objective Objective Last 24 Hour Vital Signs Date Time Temp Pulse Resp B/P (MAP) Pulse Ox O2 Delivery O2 Flow Rate FiO2 11/26/17 12:25 97.6 76 20 127/63 (84) 97 97.6 11/26/17 09:55 96 Nasal Cannula 2.0 11/26/17 09:55 Nasal Cannula 2.0 11/26/17 09:55 76 16 Nasal Cannula 2.0 11/26/17 09:00 Nasal Cannula 2.0 11/26/17 08:27 98.2 68 18 102/62 (75) 97 98.2 11/26/17 08:25 140/82 11/26/17 08:25 81 140/82 11/26/17 04:00 98.1 81 19 140/82 (101) 97 98.1 11/26/17 00:00 97.9 75 18 130/70 (90) 97 97.9 11/25/17 21:04 67 18 Nasal Cannula 2.0 11/25/17 21:00 Nasal Cannula 2.0 11/25/17 20:00 98.5 53 17 122/63 (82) 100 98.5 11/25/17 16:00 98.4 88 20 121/73 (89) 94 98.4 11/25/17 14:59 97.3 83 20 163/76 (105) 94 97.3 Intake and Output 11/25/17 11/26/17 19:00 07:00 Intake Total 360 ml 735 ml Balance 360 ml 735 ml Intake Oral 360 ml IV Total 735 ml # Voids 1 2 # Bowel Movements 1 Height (Feet): 5 Height (Inches): 9.00 Weight (Pounds): 310 General Appearance: no apparent distress Cardiovascular: normal rate Respiratory/Chest: decreased breath sounds Abdomen: soft, other - obese Neurologic: other - resting tremors Dawson Doty MD Nov 26, 2017 12:35
[2017-11-26] MEDS ORDERED: Levofloxacin 500mg tab ORAL SCH (14:00)
[2017-11-26] MEDS ORDERED: 1/2 NS 1000ml IV ONE (16:02)
[2017-11-26 16:04] VITALS: BP 122/60
--- NOTE | 2017-11-26 18:05 | General Progress Note ---
Assessment/Plan Status: stable Assessment/Plan INTERNAL MEDICINE PROGRESS NOTE Covering for Dr. Salinas # Lekopenia potentially congenital benign neutropenia --> hepatitis and hiv have been ordered --> imaging reviewed # Anemia. --> Continue to closely monitor for improvement. --> Hgb goal >7 # DM. A1C goal <7 --> Continue to closely monitor BS. # Morbid obesity --> Dietary recs # Acute encephalopathy # Fever. Resolved. Subjective Date patient seen: Nov 26, 2017 ROS Limited/Unobtainable: Yes Hematologic/Lymphatic: Reports: anemia Allergies: Coded Allergies: ASPIRIN (Verified Allergy, Unknown, 11/22/17) PENICILLINS (Verified Allergy, Unknown, 11/22/17) SULFAMETHOXAZOLE (Verified Allergy, Unknown, 11/22/17) TRIMETHOPRIM (Verified Allergy, Unknown, 11/22/17) All Systems: reviewed and negative except above Subjective Pt awake and alert. No acute events. Vitals are stable. Pt refused blood draw. Objective Last 24 Hour Vital Signs Date Time Temp Pulse Resp B/P (MAP) Pulse Ox O2 Delivery O2 Flow Rate FiO2 11/26/17 16:04 99.2 65 20 122/60 (80) 95 99.2 11/26/17 12:25 97.6 76 20 127/63 (84) 97 97.6 11/26/17 09:55 96 Nasal Cannula 2.0 11/26/17 09:55 Nasal Cannula 2.0 11/26/17 09:55 76 16 Nasal Cannula 2.0 11/26/17 09:00 Nasal Cannula 2.0 11/26/17 08:27 98.2 68 18 102/62 (75) 97 98.2 11/26/17 08:25 140/82 11/26/17 08:25 81 140/82 11/26/17 04:00 98.1 81 19 140/82 (101) 97 98.1 11/26/17 00:00 97.9 75 18 130/70 (90) 97 97.9 11/25/17 21:04 67 18 Nasal Cannula 2.0 11/25/17 21:00 Nasal Cannula 2.0 11/25/17 20:00 98.5 53 17 122/63 (82) 100 98.5 Intake and Output 11/25/17 11/26/17 19:00 07:00 Intake Total 360 ml 735 ml Balance 360 ml 735 ml Intake Oral 360 ml IV Total 735 ml # Voids 1 2 # Bowel Movements 1 Height (Feet): 5 Height (Inches): 9.00 Weight (Pounds): 310 General Appearance: no apparent distress, alert EENT: PERRL/EOMI Neck: normal alignment Cardiovascular: normal peripheral pulses Respiratory/Chest: no respiratory distress Abdomen: soft Yaniv Storey MD Nov 26, 2017 18:05
--- NOTE | 2017-11-26 18:45 | Progress Note ---
DATE: 11/26/2017 SUBJECTIVE: The patient is a 66-year-old male patient with shortness of breath. This patient has respiratory insufficiency. He has had mood lability worsened by stress of his medical illness. That is why, his attending has requested daily psychiatric consultation. MENTAL STATUS EXAMINATION: This is a 66-year-old male. Appearance disheveled. Attitude, irritable and agitated. Affect, guarded and restricted. Intellect poor. Mood, depressed and anxious. Motor activity, psychomotor agitation. Attention span is poor. Orientation x2. Speech is pressured. Thought process are disorganized and illogical. Thought content is auditory hallucinations with paranoid delusions. Insight and judgment is poor. DIAGNOSIS: Schizoaffective, bipolar type. PLAN: Treat him with Depakote 750 mg twice a day, Abilify 5 mg at bedtime. Provided 18-20 minutes of cognitive behavioral therapy to help the patient identify automatic negative thoughts and to help to convert to positive thoughts to reduce depression and anxiety. Chart reviewed. Discussed with staff. Seen and assessed at bedside. Deborah Sosa M.D. DR: Ronny JOB#: [id number] CC:
[2017-11-26 20:09] VITALS: BP 113/58
[2017-11-26] MEDS: Iron Sucrose 100 MG in NS 55 ML IV SCH (22:12)
[2017-11-26] MEDS: Tamsulosin 0.4mg cap ORAL SCH (22:13)
[2017-11-26] MEDS ORDERED: traMADol 50mg tab ORAL PRN (23:00)
[2017-11-27 04:00] VITALS: BP 138/58
[2017-11-27] MEDS: Brimonidine 0.2% Opth Sol BOTH EYES SCH ×2 (05:44→13:43)
[2017-11-27] MEDS: NovoLOG Insulin Flexpen SUBQ SCH ×2 (06:25→12:01)
[2017-11-27 07:19] LABS: ALANINE AMINOTRANSFERASE 29 U/L (12-78); ALBUMIN 3.2 G/DL (3.4-5.0); ALBUMIN/GLOBULIN RATIO 0.7 (1.0-2.7); ALKALINE PHOSPHATASE 103 U/L (46-116); ANION GAP 6 mmol/L (5-15); ASPARTATE AMINO TRANSFERASE 22 U/L (15-37); BILIRUBIN,TOTAL 0.2 MG/DL (0.2-1.0); BLOOD UREA NITROGEN 21 mg/dL (7-18); CALCIUM 9.3 MG/DL (8.5-10.1); CARBON DIOXIDE 32 MMOL/L (21-32); CHLORIDE 105 MMOL/L (98-107); CHOLESTEROL 195 MG/DL (< 200); CREATININE 1.4 MG/DL (0.55-1.30); HDL CHOLESTEROL 35 MG/DL (40-60); PHOSPHORUS 3.8 MG/DL (2.5-4.9); POTASSIUM 4.3 MMOL/L (3.5-5.1); SODIUM 143 MMOL/L (136-145); TRIGLYCERIDES 353 MG/DL (30-150)
[2017-11-27 08:09] VITALS: BP 115/65
[2017-11-27] MEDS: Heparin 5000 units/ml inj SUBQ SCH (08:39)
[2017-11-27] MEDS: Losartan 50mg tab ORAL SCH (08:39)
--- NOTE | 2017-11-27 09:00 | Progress Note ---
DATE: 11/25/2017 NOTE: POOR AUDIO SUBJECTIVE: The patient is a 66-year-old male patient with shortness of breath, . The patient also has diagnosis of schizoaffective bipolar type. mood lability, worsened by stress of his mental illness that is why attending has requested daily psychiatric consultation. MENTAL STATUS EXAMINATION: The patient is a 66-year-old male. Appearance is disheveled. Attitude irritable and agitated. Affect guarded and restricted. Intellect poor. Mood depressed and anxious. Motor activity, psychomotor agitation. Attention span is poor. Orientation x2. Speech is pressured. Thought process, disorganized. Thought content, auditory hallucinations. Insight and judgement is poor. DIAGNOSIS: Schizoaffective, bipolar type. PLAN: Treat the patient with patient Abilify 5 mg at bedtime and Depakote 750 mg twice a day. A 18 to 20 minutes of supportive psychotherapy provided. Chart reviewed and discussed with staff. Seen and assessed at bedside. An 18-20 minutes of cognitive behavioral therapy provided to help the patient identify automatic negative thoughts and to help to convert to positive thoughts. Continue Abilify 5 mg daily and Depakote 750 mg twice a day. Chart reviewed and discussed with staff. Seen and assessed at bedside. Deborah Sosa M.D. DR: KAROL JOB#: [id number] CC:
--- NOTE | 2017-11-27 09:16 | Diagnostic Imaging Report ---
Indication: Pain Technique: 2 views of the left hip Comparison: none Findings: Exam is very limited due to body habitus. 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 There is considerable deformity of the proximal femur, likely related to old trauma. There is an ununited fracture of the greater trochanter. No definite through and through fracture demonstrated. No definite pelvic fracture Impression: Chronic posttraumatic and postsurgical changes, as described Age-indeterminate greater trochanteric fracture. Suspected this is residua from prior trauma but acute injury not excludable. Correlate with clinical findings
--- NOTE | 2017-11-27 09:17 | Diagnostic Imaging Report ---
Indication: Pain Technique: 3 views of the left knee Comparison: None Findings: Surgical hardware is seen reducing old healed distal femoral fracture. There is mild medial compartment degenerative joint space narrowing and slight irregularity of the articular surfaces laterally. No acute fractures. No dislocations. No suprapatellar effusion. Impression: No acute process
--- NOTE | 2017-11-27 09:58 | Nephrology Progress Note ---
Assessment/Plan Problem List: (1) Renal insufficiency (2) Diabetes mellitus (3) Morbid obesity (4) Dementia (5) Acute encephalopathy Assessment - Renal failure- acute on chronic- - Proteinuria, Diabetic nephropathy - Pneumonia- - Obesity- - DM OOC - Dementia - Encephalopathy - Anemia, Low Iron Plan DC planning Cr 1.4 stable Subjective ROS Limited/Unobtainable: No Constitutional: Reports: malaise Objective Objective Last 24 Hour Vital Signs Date Time Temp Pulse Resp B/P (MAP) Pulse Ox O2 Delivery O2 Flow Rate FiO2 11/27/17 08:39 115/65 11/27/17 08:38 71 115/65 11/27/17 08:09 Nasal Cannula 2.0 28 11/27/17 08:09 94 Nasal Cannula 2.0 28 11/27/17 08:09 98.0 71 20 115/65 (82) 97 98.0 11/27/17 08:08 74 18 Nasal Cannula 2.0 28 11/27/17 04:00 99.1 80 17 138/58 (84) 94 99.1 11/26/17 21:00 Nasal Cannula 2.0 11/26/17 20:09 98.2 70 20 113/58 (76) 96 98.2 11/26/17 19:03 97 Nasal Cannula 2.0 28 11/26/17 19:03 66 18 Nasal Cannula 2.0 28 11/26/17 19:03 Nasal Cannula 2.0 28 11/26/17 16:04 99.2 65 20 122/60 (80) 95 99.2 11/26/17 12:25 97.6 76 20 127/63 (84) 97 97.6 Intake and Output 11/26/17 11/27/17 19:00 07:00 Intake Total 1545 ml 660 ml Balance 1545 ml 660 ml Intake Oral 720 ml IV Total 825 ml 660 ml # Voids 3 4 # Bowel Movements 1 Laboratory Tests 11/27/17 05:25: Sodium Level 143, Potassium Level 4.3, Chloride Level 105, Carbon Dioxide Level 32, Anion Gap 6, Blood Urea Nitrogen 21H, Creatinine 1.4H, Estimat Glomerular Filtration Rate 50.5, Glucose Level 155H, Uric Acid 6.3, Calcium Level 9.3, Phosphorus Level 3.8, Magnesium Level 2.1, Total Bilirubin 0.2, Aspartate Amino Transf (AST/SGOT) 22, Alanine Aminotransferase (ALT/SGPT) 29, Alkaline Phosphatase 103, Total Protein 7.7, Albumin 3.2L, Globulin 4.5, Albumin/ Globulin Ratio 0.7L, Triglycerides Level 353H, Cholesterol Level 195, LDL Cholesterol 126H, HDL Cholesterol 35L, Cholesterol/HDL Ratio 5.6H Height (Feet): 5 Height (Inches): 9.00 Weight (Pounds): 310 General Appearance: no apparent distress Cardiovascular: normal rate Respiratory/Chest: lungs clear Abdomen: soft Objective no change Dawson Doty MD Nov 27, 2017 09:58
--- NOTE | 2017-11-27 10:59 | Diagnostic Imaging Report ---
Indication: Cough Technique: One view of the chest Comparison: 11/24/2017 Findings: Lungs and pleural spaces are clear. The heart size is normal. Impression: No acute process
--- NOTE | 2017-11-27 11:08 | Infectious Diseases Prog Note ---
Assessment/Plan Assessment/Plan Assessment: Bronchitis vs PNA S/P Levo 5 days (ended 11/26/17) -CXR: There are bilateral basilar atelectatic changes. The lungs and pleural spaces are otherwise clear Low grade fever; imporing -no leukocytosis -u/a neg; ucx p -Bcx NTD MACARIO Vs CKD HTN COPD GERD DM2 morbid obesity Dementia SNF resident Plan: - S/P Abx -Monitor CBC/CMP, temperatures -aspiration precautions - Thank you for this consultation. Will continue to follow along with you. Subjective Allergies: Coded Allergies: ASPIRIN (Verified Allergy, Unknown, 11/22/17) PENICILLINS (Verified Allergy, Unknown, 11/22/17) SULFAMETHOXAZOLE (Verified Allergy, Unknown, 11/22/17) TRIMETHOPRIM (Verified Allergy, Unknown, 11/22/17) Subjective Patient reports feeling well. Denies SOB, N/V/D and fever Objective Vital Signs Last 24 Hour Vital Signs Date Time Temp Pulse Resp B/P (MAP) Pulse Ox O2 Delivery O2 Flow Rate FiO2 11/27/17 11:00 98.0 11/27/17 08:39 115/65 11/27/17 08:38 71 115/65 11/27/17 08:09 Nasal Cannula 2.0 28 11/27/17 08:09 94 Nasal Cannula 2.0 28 11/27/17 08:09 98.0 71 20 115/65 (82) 97 98.0 11/27/17 08:08 74 18 Nasal Cannula 2.0 28 11/27/17 04:00 99.1 80 17 138/58 (84) 94 99.1 11/26/17 21:00 Nasal Cannula 2.0 11/26/17 20:09 98.2 70 20 113/58 (76) 96 98.2 11/26/17 19:03 97 Nasal Cannula 2.0 28 11/26/17 19:03 66 18 Nasal Cannula 2.0 28 11/26/17 19:03 Nasal Cannula 2.0 28 11/26/17 16:04 99.2 65 20 122/60 (80) 95 99.2 11/26/17 12:25 97.6 76 20 127/63 (84) 97 97.6 Height (Feet): 5 Height (Inches): 9.00 Weight (Pounds): 310 Objective General Appearance: WD/WN, no apparent distress, On 2L NC HEENT: normocephalic, atraumatic Neck: non-tender, normal alignment Respiratory/Chest: chest wall non-tender, normal breath sounds Breasts: no masses Cardiovascular/Chest: normal peripheral pulses Abdomen: normal bowel sounds Genitourinary/Rectal: normal genital exam Extremities: normal range of motion Neurologic: track layer II-XII grossly normal Laboratory Tests Test 11/27/17 05:25 Sodium Level 143 MMOL/L (136-145) Potassium Level 4.3 MMOL/L (3.5-5.1) Chloride Level 105 MMOL/L (98-107) Carbon Dioxide Level 32 MMOL/L (21-32) Anion Gap 6 mmol/L (5-15) Blood Urea Nitrogen 21 mg/dL (7-18) H Creatinine 1.4 MG/DL (0.55-1.30) H Estimat Glomerular Filtration Rate 50.5 mL/min (>60) Glucose Level 155 MG/DL (74-106) H Uric Acid 6.3 MG/DL (2.6-7.2) Calcium Level 9.3 MG/DL (8.5-10.1) Phosphorus Level 3.8 MG/DL (2.5-4.9) Magnesium Level 2.1 MG/DL (1.8-2.4) Total Bilirubin 0.2 MG/DL (0.2-1.0) Aspartate Amino Transf (AST/SGOT) 22 U/L (15-37) Alanine Aminotransferase (ALT/SGPT) 29 U/L (12-78) Alkaline Phosphatase 103 U/L (46-116) Total Protein 7.7 G/DL (6.4-8.2) Albumin 3.2 G/DL (3.4-5.0) L Globulin 4.5 g/dL Albumin/Globulin Ratio 0.7 (1.0-2.7) L Triglycerides Level 353 MG/DL (30-150) H Cholesterol Level 195 MG/DL (< 200) LDL Cholesterol 126 mg/dL (<100) H HDL Cholesterol 35 MG/DL (40-60) L Cholesterol/HDL Ratio 5.6 (3.3-4.4) H Current Medications Medications (Trade) Dose Ordered Sig/Jayden Route PRN Reason Start Time Stop Time Status Last Admin Dose Admin Albuterol/ Ipratropium (Albuterol/ Ipratropium) 3 ml Q4H PRN HHN Shortness of Breath 11/25/17 11:15 11/30/17 11:14 Amlodipine Besylate (Norvasc) 5 mg DAILY ORAL 11/24/17 12:31 12/24/17 12:30 11/27/17 08:38 Aripiprazole (Abilify) 5 mg DAILY ORAL 11/24/17 09:00 12/24/17 08:59 11/27/17 08:39 Atorvastatin Calcium (Lipitor) 10 mg BEDTIME ORAL 11/24/17 21:00 12/24/17 20:59 11/26/17 22:14 Brimonidine Tartrate (Alphagan) 1 drop Q8HR BOTH EYES 11/24/17 22:00 12/24/17 21:59 11/27/17 05:44 Dextrose (Dextrose 50%) 25 ml STAT PRN IV Hypoglycemia 11/24/17 16:15 12/24/17 16:14 Dextrose (Dextrose 50%) 50 ml STAT PRN IV Hypoglycemia 11/24/17 16:15 12/24/17 16:14 Divalproex Sodium (Depakote) 750 mg EVERY 12 HOURS ORAL 11/23/17 21:00 12/23/17 20:59 11/27/17 08:38 Escitalopram Oxalate (Lexapro) 10 mg DAILY ORAL 11/24/17 12:32 12/24/17 12:31 11/27/17 08:38 Famotidine (Pepcid) 20 mg BID ORAL 11/24/17 11:00 12/24/17 10:59 11/27/17 08:39 Fish Oil (Fish Oil) 1,000 mg DAILY ORAL 11/26/17 09:00 12/26/17 08:59 11/27/17 08:38 Gabapentin (Neurontin) 400 mg Q8H ORAL 11/23/17 13:00 12/23/17 12:59 11/27/17 05:43 Heparin Sodium (Porcine) (Heparin 5000 units/ml) 5,000 units EVERY 12 HOURS SUBQ 11/23/17 21:00 12/23/17 20:59 11/26/17 08:26 Insulin Aspart (NovoLOG) BEFORE MEALS AND HS SUBQ 11/24/17 16:30 12/24/17 16:29 11/27/17 06:25 Iron Sucrose 100 mg/Sodium Chloride 60 ml @ 240 mls/hr BEDTIME IV 11/25/17 21:00 11/29/17 21:14 11/26/17 22:12 Lorazepam (Ativan) 1 mg Q6H PRN ORAL For Anxiety 11/24/17 04:15 12/01/17 04:14 11/24/17 09:53 Losartan Potassium (Cozaar) 50 mg DAILY ORAL 11/24/17 12:33 12/24/17 12:32 11/27/17 08:39 Nateglinide (Starlix) 120 mg TIAC ORAL 11/26/17 11:30 12/26/17 11:29 11/27/17 10:57 Sodium Chloride 1,000 ml @ 75 mls/hr [id number] IV 11/24/17 11:00 12/24/17 10:59 11/26/17 13:57 Tamsulosin HCl (Flomax) 0.4 mg QHS ORAL 11/23/17 21:00 12/23/17 20:59 11/26/17 22:13 Tramadol HCl (Ultram) 50 mg Q6H PRN ORAL pain 11/26/17 23:00 12/03/17 22:59 11/27/17 11:00 Dago Costa M.D. Nov 27, 2017 11:08
[2017-11-27 11:47] VITALS: BP 127/74
[2017-11-27] MEDS ORDERED: NORVASC5 MG ORAL (12:34)
[2017-11-27] MEDS ORDERED: ABILIFY2 MG ORAL (12:35)
[2017-11-27] MEDS ORDERED: ATORVASTATIN CA20 MG ORAL (12:37)
[2017-11-27] MEDS ORDERED: FAMOTIDINE20 MG ORAL (12:40)
[2017-11-27] MEDS ORDERED: FISH OIL 1,0001 EAC5 ORAL (12:41)
[2017-11-27] MEDS ORDERED: HEPARIN SO5000 UNIT2 SUBQ (12:43)
[2017-11-27] MEDS ORDERED: NOVOLOG100 UNIT/3 SUBQ (12:44)
[2017-11-27] MEDS ORDERED: ATIVAN1 MG ORAL (12:46)
[2017-11-27] MEDS ORDERED: STARLIX120 MG ORAL (12:47)
--- NOTE | 2017-11-27 14:39 | General Progress Note ---
Assessment/Plan Status: stable Assessment/Plan INTERNAL MEDICINE PROGRESS NOTE Covering for Dr. Sailnas # Lekopenia potentially congenital benign neutropenia --> HIV negative. Hepatitis panel results pending. --> imaging reviewed. --> Closely monitor WBC count. # Anemia. --> Continue to closely monitor for improvement. --> Hgb goal >7 # DM. A1C goal <7 --> Continue to closely monitor BS. # Morbid obesity --> Dietary recs # Acute encephalopathy # Fever. Resolved. Subjective Date patient seen: Nov 27, 2017 ROS Limited/Unobtainable: Yes Hematologic/Lymphatic: Reports: anemia Allergies: Coded Allergies: ASPIRIN (Verified Allergy, Unknown, 11/22/17) PENICILLINS (Verified Allergy, Unknown, 11/22/17) SULFAMETHOXAZOLE (Verified Allergy, Unknown, 11/22/17) TRIMETHOPRIM (Verified Allergy, Unknown, 11/22/17) All Systems: reviewed and negative except above Subjective Pt awake and alert. No acute events. HIV negative. CXR today shows no acute process. Objective Last 24 Hour Vital Signs Date Time Temp Pulse Resp B/P (MAP) Pulse Ox O2 Delivery O2 Flow Rate FiO2 11/27/17 11:59 98.6 11/27/17 11:47 98.6 72 20 127/74 (91) 97 98.6 11/27/17 11:00 98.0 11/27/17 09:00 Nasal Cannula 2.0 11/27/17 08:39 115/65 11/27/17 08:38 71 115/65 11/27/17 08:09 Nasal Cannula 2.0 28 11/27/17 08:09 94 Nasal Cannula 2.0 28 11/27/17 08:09 98.0 71 20 115/65 (82) 97 98.0 11/27/17 08:08 74 18 Nasal Cannula 2.0 28 11/27/17 04:00 99.1 80 17 138/58 (84) 94 99.1 11/26/17 21:00 Nasal Cannula 2.0 11/26/17 20:09 98.2 70 20 113/58 (76) 96 98.2 11/26/17 19:03 97 Nasal Cannula 2.0 28 11/26/17 19:03 66 18 Nasal Cannula 2.0 28 11/26/17 19:03 Nasal Cannula 2.0 28 11/26/17 16:04 99.2 65 20 122/60 (80) 95 99.2 Intake and Output 11/26/17 11/27/17 19:00 07:00 Intake Total 1545 ml 660 ml Balance 1545 ml 660 ml Intake Oral 720 ml IV Total 825 ml 660 ml # Voids 3 4 # Bowel Movements 1 Laboratory Tests 11/27/17 05:25: Sodium Level 143, Potassium Level 4.3, Chloride Level 105, Carbon Dioxide Level 32, Anion Gap 6, Blood Urea Nitrogen 21H, Creatinine 1.4H, Estimat Glomerular Filtration Rate 50.5, Glucose Level 155H, Uric Acid 6.3, Calcium Level 9.3, Phosphorus Level 3.8, Magnesium Level 2.1, Total Bilirubin 0.2, Aspartate Amino Transf (AST/SGOT) 22, Alanine Aminotransferase (ALT/SGPT) 29, Alkaline Phosphatase 103, Total Protein 7.7, Albumin 3.2L, Globulin 4.5, Albumin/ Globulin Ratio 0.7L, Triglycerides Level 353H, Cholesterol Level 195, LDL Cholesterol 126H, HDL Cholesterol 35L, Cholesterol/HDL Ratio 5.6H, Hepatitis A IgM Antibody [Pending], Hepatitis B Surface Antigen [Pending], Hepatitis B Core IgM Antibody [Pending], Hepatitis C Antibody [Pending], HIV (1&2) Antibody Rapid Negative Height (Feet): 5 Height (Inches): 9.00 Weight (Pounds): 310 General Appearance: no apparent distress EENT: PERRL/EOMI Neck: normal alignment Cardiovascular: normal peripheral pulses Respiratory/Chest: normal breath sounds, no respiratory distress Abdomen: soft Yaniv Storey MD Nov 27, 2017 14:39
[2017-11-27] MEDS ORDERED: 1/2 NS 1000ml IV ONE (15:19)
--- NOTE | 2017-11-27 23:45 | Progress Note ---
DATE: 11/27/2017 SUBJECTIVE: The patient is a 66-year-old male patient with shortness of breath. his attending has requested daily psychiatric consultation. MENTAL STATUS EXAMINATION: The patient is a 66-year-old male. Disheveled, irritable, and agitated. Affect, guarded and restricted. Intellect poor. Mood, depressed and anxious. Motor activity, psychomotor agitation. Attention span is poor. Orientation x2. Speech is pressured. Thought process is disorganized and illogical. Thought content is auditory hallucinations with paranoid delusions. Insight and judgment is poor. DIAGNOSIS: Schizoaffective disorder, bipolar type, rule out pseudo dementia. PLAN: Treat him with Depakote 750 mg twice a day and Abilify 5 mg p.o. b.i.d. Provided 20 minutes of cognitive behavioral therapy to help the patient identify negative thoughts and . Chart reviewed. Discussed with staff. Seen and assessed at bedside. Deborah Sosa M.D. DR: STANLEY JOB#: [id number] CC:
--- NOTE | 2017-11-29 09:40 | Discharge Summary ---
Discharge Summary Discharge Summary _ DATE OF ADMISSION: 11/22/2017 DATE OF DISCHARGE: 11/27/2017 REASON FOR ADMISSION: 66 years old male with past medical history of hypertension, diabetes mellitus, chronic kidney disease, BPH, GERD, psychiatric disorder, dementia presented to emergency department for fever for 1 day and shortness of breath. Patient denied chest pain and dizziness. Patient admitted to cough , minimally productive with clear sputum production. Patient was unable to provide much information due to dementia. Patient required placement on oxygen via nasal cannula to keep pulse oximetry above on 90%. Initially tachycardic, mild tachypnea, no fever. No leukocytosis, mild anemia with hemoglobin 11.0 and hematocrit 33.6. Potassium 5.5. BUN 42 creatinine 1.7. Troponin negative, proBNP 159. ECG revealed normal sinus rhythm, no acute ischemic changes. Lactic acid 0.9. Chest x-ray revealed possible left lower lobe infiltrate. Patient with DNR/DNI status and option for selective treatment. Patient admitted with diagnosis of possible pneumonia ,renal insufficiency , hyperkalemia with diminished renal excretion, acute encephalopathy . CONSULTANTS: pulmonary Dr. Swift ID specialist Dr. Marion health information clerk Dr. Doty psychiatrist Dr. Sosa [facility]: Patient admitted. Supplemental oxygen provided to keep pulse oximetry above 92%. Pulmonary toilet provided with hand held nebulizing and chest physiotherapy. Patient started on empiric antibiotic. Blood culture were negative. Sputum culture was not collected, since cough was only minimally productive. ID specialist closely followed. Follow-up chest x-ray revealed no acute changes. Patient status post treatment with antibiotics for possible pneumonia and bronchitis for 5 days. Afebrile, no leukocytosis. DVT prophylaxis provided. Venous duplex bilateral lower extremity was ordered , but unable to be done due to morbid obesity. Echocardiogram revealed grossly preserved ejection fraction . It was a technically difficult study given morbid obesity. Study quality precluded accurate assessment of regional wall motion. Blood pressure was managed with calcium channel angelina and angiotensin receptor angelina, remained stable. Blood sugar was managed with sliding scale of insulin. Hemoglobin A1c 9.9 , not at goal. Creatinine elevated , patient was on metformin. Metformin stopped, and patient started on Starlix and sliding scale of insulin as needed. Blood sugar was stable while in the hospital. Further optimization of antiglycemic regimen as outpatient. Renal parameters and electrolytes were closely monitored. Program Paraprofessional followed. Electrolytes corrected as needed ,hyperkalemia resolved. Nephrotoxins were avoided . Creatine slowly trending down , from initial 1.7 down to 1.4. Renal failure likely due to diabetic nephropathy. Lipid panel revealed mixed hyperlipidemia. Patient educated on low-fat low-cholesterol diabetic diet. Patient started on statin. Check lipid panel, CK and LFT in 3 months. Hemoglobin and hematocrit were closely monitored with goal to keep hemoglobin above 7. Hemoglobin and hematocrit remained stable. Psychiatrist closely followed and diagnosed patient with schizoaffective disorder bipolar type. Psychiatrist optimized psychiatric medication regimen. Reality orientation and supportive therapy provided. Patient with DNR/DNI status. Patient clinically stabilized and was ready for discharge back to snf facility for continuation of care FINAL DIAGNOSES: Acute encephalopathy Bronchitis Possible pneumonia , status post treatment COPD Diabetes mellitus out of control Acute renal failure on chronic renal disease Proteinuria, , likely diabetic nephropathy Hypertension Morbid obesity Anemia Hyperkalemia Mixed hyperlipidemia Schizoaffective disorder bipolar type Dementia DISCHARGE MEDICATIONS: See Medication Reconciliation list. DISCHARGE INSTRUCTIONS: Patient discharged to snf facility. Follow up with medical doctor at the facility. Aletha Lindquist NP Nov 29, 2017 09:40
--- NOTE | 2017-12-08 14:20 | Cardiology Report ---
APPROVED REPORT EKG Measurement Heart [id number] Normal sinus rhythm Normal ECG
== END 2017-11-27 15:20 | DRG 193 ==
LOC: EDBD 21:01 → EMR 21:30 → 2E 21:41 → EDBEDREQ 22:15 → 4W 11-24 15:12
DX: J18.9 Pneumonia, unspecified organism (principal); G93.40 Encephalopathy, unspecified; N17.9 Acute kidney failure, unspecified; Z68.42 Body mass index [BMI] 45.0-49.9, adult; Z88.6 Allergy status to analgesic agent; Z88.3 Allergy status to other anti-infective agents; Z88.0 Allergy status to penicillin; G62.9 Polyneuropathy, unspecified; D64.9 Anemia, unspecified; Z79.4 Long term (current) use of insulin; E66.01 Morbid (severe) obesity due to excess calories; K21.9 Gastro-esophageal reflux disease without esophagitis; J44.9 Chronic obstructive pulmonary disease, unspecified; F03.90 Unspecified dementia, unspecified severity, without behavioral disturbance, psychotic disturbance, mood disturbance, and anxiety; E11.22 Type 2 diabetes mellitus with diabetic chronic kidney disease; I12.9 Hypertensive chronic kidney disease with stage 1 through stage 4 chronic kidney disease, or unspecified chronic kidney disease; N18.9 Chronic kidney disease, unspecified; E87.5 Hyperkalemia; E78.2 Mixed hyperlipidemia; E11.65 Type 2 diabetes mellitus with hyperglycemia; F25.0 Schizoaffective disorder, bipolar type
CPT/HCPCS: 36415; 71045; 73502; 80048; 80053; 80061; 80076; 81003; 82550; 82553; 82607; 82728; 82746; 82962; 82977; 83036; 83540; 83550; 83605; 83735; 83880; 84100; 84133; 84300; 84443; 84484; 84550; 85025; 86140; 86703; 86705; 86709; 86803; 87040; 87081; 87340; 89050; 93005; 93306; 94664; 94760; 99285; J1815

== ENCOUNTER 2019-07-09 12:44 | Inpatient (IN) | payer MEDICARE, MEDICAID ==
[~2019-07-09] VITALS: Ht 170.2 cm; Wt 104.4 kg
[~2019-07-09 12:44] MED LIST: ABILIFY2 MG ORAL; ACIDOPHILUS1 EAC6 PO; ACTOS30 MG ORAL; ATIVAN1 MG ORAL; ATORVASTATIN CA20 MG ORAL; BACLOFEN10 MG ORAL; BENZTROPINE ME0.5 MG PO; BRIMONIDINE TART5 ML BOTH EYES; CALCIUM 500 +1 EAC6 PO; COLACE100 MG ORAL; DEPAKOTE ER500 MG ORAL; DUONEB 0.5-3(2.53 ML HHN; FAMOTIDINE20 MG ORAL; FISH OIL 1,0001 EAC5 ORAL; FLEET ENEMA133 ML RECTAL; FLOMAX0.4 MG ORAL; GABAPENTIN400 MG ORAL; GLIPIZIDE5 MG ORAL; GLUCAGON W/DILUE1 MG IM; HEPARIN SO5000 UNIT2 SUBQ; JUVEN PACKET1 EAC1 PO; LANTUS SOL100 UNIT/1 SUBQ; LEXAPRO10 MG ORAL; LOSARTAN POTASS50 MG ORAL; LOVENOX10 M4 SUBQ; MULTIVITAMINS1 EAC2 ORAL; NORVASC2.5 MG ORAL; NORVASC5 MG ORAL; NOVOLOG100 UNIT/3 SUBQ; RESTORIL15 MG ORAL; RISPERDAL2 MG ORAL; STARLIX120 MG ORAL; TRAMADOL HCL50 MG ORAL; TYLENOL EXTRA500 MG ORAL; VITAMIN C500 M1 ORAL; VITAMIN D1000 UNI1 ORAL; XALATAN2.5 ML BOTH EYES; XIFAXAN550 MG ORAL
[2019-07-09] MEDS ORDERED: Omnipaque-300 100ml vial INJ PRN (13:00)
[2019-07-09] MEDS ORDERED: BISACODYL5 MG ORAL (13:26)
[2019-07-09] MEDS ORDERED: FISH OIL CAP1000 MG ORAL (13:26)
[2019-07-09] MEDS ORDERED: DIOVAN80 MG ORAL (13:26)
[2019-07-09] MEDS ORDERED: FLEET ENEMA133 ML RECTAL (13:26)
[2019-07-09] MEDS ORDERED: LEVEMIR100 UNIT/1 SUBQ (13:30)
[2019-07-09] MEDS ORDERED: ATORVASTATIN CA10 MG ORAL (13:30)
[2019-07-09] MEDS ORDERED: HUMULIN N100 UNIT/1 SUBQ (13:30)
[2019-07-09] MEDS ORDERED: ZOFRAN4 M3 ORAL (13:34)
[2019-07-09] MEDS ORDERED: TRADJENTA5 MG PO (13:34)
[2019-07-09] MEDS ORDERED: SENNA8.6 M2 PO (13:34)
[2019-07-09] MEDS ORDERED: ZINC SULFATE220 M1 ORAL (13:34)
[2019-07-09] MEDS ORDERED: VITAMIN C500 M1 ORAL (13:34)
[2019-07-09] MEDS ORDERED: Metoprolol Succinate XL 50mg tab ORAL ONE (13:45)
[2019-07-09 13:47] LABS: ANION GAP 11 mmol/L (5-15); BASOPHILS % (AUTO) 0.5 % (0.0-2.0); BLOOD UREA NITROGEN 72 mg/dL (7-18); CALCIUM 8.6 MG/DL (8.5-10.1); CARBON DIOXIDE 28 MMOL/L (21-32); CHLORIDE 92 MMOL/L (98-107); CREATININE 2.6 MG/DL (0.55-1.30); EOSINOPHILS % (AUTO) 0.1 % (0.0-3.0); HEMATOCRIT 27.5 % (42.0-52.0); HEMOGLOBIN 9.3 G/DL (14.2-18.0); LYMPHOCYTES % (AUTO) 9.5 % (20.0-45.0); MEAN CORPUSCULAR VOLUME 91 FL (80-99); MONOCYTES % (AUTO) 8.3 % (1.0-10.0); NEUTROPHILS % (AUTO) 81.6 % (45.0-75.0); PLATELET COUNT 246 K/UL (150-450); POTASSIUM 5.1 MMOL/L (3.5-5.1); RED BLOOD COUNT 3.01 M/UL (4.70-6.10); RED CELL DISTRIBUTION WIDTH 12.3 % (11.6-14.8); SODIUM 131 MMOL/L (136-145); WHITE BLOOD COUNT 11.6 K/UL (4.8-10.8)
[2019-07-09 13:51] LABS: ALANINE AMINOTRANSFERASE 34 U/L (12-78); ALBUMIN 2.4 G/DL (3.4-5.0); ALBUMIN/GLOBULIN RATIO 0.5 (1.0-2.7); ALKALINE PHOSPHATASE 80 U/L (46-116); ASPARTATE AMINO TRANSFERASE 22 U/L (15-37); BILIRUBIN,TOTAL 0.3 MG/DL (0.2-1.0)
--- NOTE | 2019-07-09 14:09 | Emergency Room Report ---
History of Present Illness General Chief Complaint: Gastrointestinal Bleed Source: Patient, Medical Record Present Illness HPI 68-year-old male history of tachycardia history of obesity presents with acute episode of coffee-ground emesis, no known aggravating relieving factors severity is mild, intermittent patient denies any chest pain shortness of breath patient denies any bloody stools patient denies any abdominal pain patient presents for evaluation for for possible GI bleed Allergies: Coded Allergies: ASPIRIN (Verified Allergy, Unknown, 11/22/17) PENICILLINS (Verified Allergy, Unknown, 11/22/17) SULFAMETHOXAZOLE (Verified Allergy, Unknown, 11/22/17) TRIMETHOPRIM (Verified Allergy, Unknown, 11/22/17) Patient History Past Medical History: see triage record Reviewed Nursing Documentation: PMH: Agreed; PSxH: Agreed Nursing Documentation-PMH Hx Hypertension: Yes Hx COPD: Yes Hx Diabetes: Yes Hx Gastrointestinal Problems: Yes Hx Cerebrovascular Accident: Yes - TIA Hx Seizures: Yes Review of Systems All Other Systems: negative except mentioned in HPI Physical Exam Vital Signs Date Time Temp Pulse Resp B/P (MAP) Pulse Ox O2 Delivery O2 Flow Rate FiO2 07/09/19 12:47 98.2 102 19 97/66 (76) 94 Room Air Sp02 EP Interpretation: reviewed, normal General Appearance: well appearing, no apparent distress, alert Head: normocephalic, atraumatic Eyes: bilateral eye PERRL, bilateral eye EOMI ENT: uvula midline, moist mucus membranes Neck: supple, thyroid normal, supple/symm/no masses Respiratory: lungs clear, no respiratory distress, no retraction, no accessory muscle use Cardiovascular #1: normal peripheral pulses, no edema, no gallop, no murmur, tachycardia Gastrointestinal: non tender, soft, no guarding, no rebound Musculoskeletal: normal inspection Neurologic: alert, oriented x3 Psychiatric: mood/affect normal Skin: no rash, warm/dry Medical Decision Making Diagnostic Impression: Primary Impression: Gastrointestinal hemorrhage Qualified Codes: K92.2 - Gastrointestinal hemorrhage, unspecified ER Course [age]-year-old male presents with acute nausea and vomiting differential diagnosis includes GI bleed, upper GI bleed, lower GI bleed Patient currently in the ED has not vomited, fluids given, additionally patient typed and screened will obtain labs will obtain imaging Patient given 1 L of fluids remained stable tachycardia slowly improving patient has not vomited once, antiemetics were given, famotidine was given Plan for admission to Dr. Joe Salinas Patient admitted remained stable Laboratory Tests Test 07/09/19 13:10 07/09/19 14:00 White Blood Count 11.6 K/UL (4.8-10.8) H Red Blood Count 3.01 M/UL (4.70-6.10) L Hemoglobin 9.3 G/DL (14.2-18.0) L Hematocrit 27.5 % (42.0-52.0) L Mean Corpuscular Volume 91 FL (80-99) Mean Corpuscular Hemoglobin 31.1 PG (27.0-31.0) H Mean Corpuscular Hemoglobin Concent 34.0 G/DL (32.0-36.0) Red Cell Distribution Width 12.3 % (11.6-14.8) Platelet Count 246 K/UL (150-450) Mean Platelet Volume 5.6 FL (6.5-10.1) L Neutrophils (%) (Auto) 81.6 % (45.0-75.0) H Lymphocytes (%) (Auto) 9.5 % (20.0-45.0) L Monocytes (%) (Auto) 8.3 % (1.0-10.0) Eosinophils (%) (Auto) 0.1 % (0.0-3.0) Basophils (%) (Auto) 0.5 % (0.0-2.0) Prothrombin Time 10.7 SEC (9.30-11.50) Prothrombin Time INR 1.0 (0.9-1.1) Activated Partial Thromboplast Time 27 SEC (23-33) Sodium Level 131 MMOL/L (136-145) L Potassium Level 5.1 MMOL/L (3.5-5.1) Chloride Level 92 MMOL/L (98-107) L Carbon Dioxide Level 28 MMOL/L (21-32) Anion Gap 11 mmol/L (5-15) Blood Urea Nitrogen 72 mg/dL (7-18) H Creatinine 2.6 MG/DL (0.55-1.30) H Estimate Glomerular Filtration Rate 24.6 mL/min (>60) Glucose Level 495 MG/DL (74-106) H Calcium Level 8.6 MG/DL (8.5-10.1) Total Bilirubin 0.3 MG/DL (0.2-1.0) Aspartate Amino Transferase (AST) 22 U/L (15-37) Alanine Aminotransferase (ALT) 34 U/L (12-78) Alkaline Phosphatase 80 U/L (46-116) Total Protein 7.2 G/DL (6.4-8.2) Albumin 2.4 G/DL (3.4-5.0) L Globulin 4.8 g/dL Albumin/Globulin Ratio 0.5 (1.0-2.7) L Lipase 280 U/L (73-393) Lactic Acid Level 2.10 mmol/L (0.4-2.0) H EKG Diagnostic Results EKG Time: 12:22 EP Interpretation: Sinus tachycardia, rate 103, QTc 468, no acute escalations, normal axis Rhythm Strip Diag. Results Rhythm Strip Time: 14:08 EP Interpretation: yes Rate: 111 Rhythm: other - Sinus tachycardia Chest X-Ray Diagnostic Results Chest X-Ray Diagnostic Results : Chest X-Ray Ordered: Yes # of Views/Limited/Complete: 1 View Indication: Other - Preoperative EP Interpretation: Yes Interpretation: no consolidation, no effusion, no pneumothorax, no acute cardiopulmonary disease Impression: No acute disease Electronically Signed by: Jose Gómez MD CT/MRI/US Diagnostic Results CT/MRI/US Diagnostic Results : Impression Procedure: CT Abdomen Pelvis WO Contrast Indication: Acute episode of coffee-ground emesis, history of tachycardia Technique: Spiral acquisitions obtained through the abdomen and pelvis. No oral contrast utilized, per emergency room physician request No IV contrast utilized , per emergency room physician request.. Multiplanar reconstructions were generated. Total dose length product 1073 mGycm. CTDIvol(s) 19 mGy. Dose reduction achieved using automated exposure control Comparison: None Findings: Lack of enteric contrast limits assessment of the GI tract. There is a small left inguinal hernia which contains only fat. There are colonic diverticula. There is considerable retained stool within the proximal sigmoid colon. There is no evidence of acute diverticulitis. The appendix is normal. No small bowel distention. No free or loculated intraperitoneal gas or fluid is evident. The stomach is mildly distended with gas. No downstream obstructive lesion is demonstrated, however. The duodenum and distal esophagus are unremarkable. Lack of IV contrast limits assessment of solid organs. The liver is grossly unremarkable. The gallbladder contains gallstones. No biliary ductal dilatation. The pancreas is unremarkable. The spleen demonstrates an accessory splenule, is otherwise unremarkable. The adrenals are unremarkable. The kidneys demonstrate bilateral nonspecific perinephric fat stranding. No definite focal abnormality. No hydronephrosis or hydroureter or renal or ureteral calculi demonstrated. The kidneys are somewhat atrophic. The bladder is mildly distended. No pelvic mass demonstrated. There are some prominent iliac chain nodes bilaterally, largest on the left measuring up to 19 mm long axis dimension. There are also prominent retroperitoneal nodes, largest measuring 2.4 cm long axis dimension, 1.1 cm short axis dimension. No pelvic mass. 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 There is considerable heterotopic ossification of the left hip region. Some surgical scarring is seen in the left hip region soft tissues. There are degenerative changes of the lumbar spine. The included lung bases demonstrate posterior dependent atelectatic changes. Impression: Limited assessment of the GI tract, due to lack of enteric contrast demonstration Mild gastric distention without evidence of downstream obstructive lesion. No acute process otherwise. Cholelithiasis Mildly distended bladder Colonic diverticulosis. No evidence of diverticulitis Nonspecific bilateral perinephric fat stranding Borderline bilateral iliac and retroperitoneal lymphadenopathy, of uncertain significance. Could be baseline for this patient versus reactive, less likely indicative of metastatic neoplasm or lymphoproliferative disorder Other findings as noted, including postsurgical posttraumatic changes of the left hip and femur, posterior dependent pulmonary atelectasis, degenerative lumbar spondylosis, accessory splenule, small fat-containing left inguinal hernia The CT scanner at [facility] is accredited by the [employer] and the scans are performed using protocols designed to limit radiation exposure to as low as reasonably achievable to attain images of sufficient resolution adequate for diagnostic evaluation. Dictated By: Hari Crawford MD Electronically Signed By: Hari Crawford MD Signed Date/Time 07/09/19 1628 CC: Jose Gómez MD Last Vital Signs Date Time Temp Pulse Resp B/P (MAP) Pulse Ox O2 Delivery O2 Flow Rate FiO2 07/09/19 12:47 98.2 102 19 97/66 (76) 94 Room Air Disposition: ADMITTED INPATIENT Condition: Stable Jose Gómez MD Jul 09, 2019 14:09
[2019-07-09 14:40] VITALS: BP 143/86
--- NOTE | 2019-07-09 16:13 | Diagnostic Imaging Report ---
Indication: Pain Technique: One view of the chest Comparison: 11/27/2017 Findings: Patient is rotated to the right. Some atelectasis or scarring is seen in the right midlung and right lung base. Lungs pleural spaces are otherwise clear. The heart size is upper limits of normal. Impression: No acute process
--- NOTE | 2019-07-09 16:34 | Diagnostic Imaging Report ---
Indication: Acute episode of coffee-ground emesis, history of tachycardia Technique: Spiral acquisitions obtained through the abdomen and pelvis. No oral contrast utilized, per emergency room physician request No IV contrast utilized, per emergency room physician request.. Multiplanar reconstructions were generated. Total dose length product 1073 mGycm. CTDIvol(s) 19 mGy. Dose reduction achieved using automated exposure control Comparison: None Findings: Lack of enteric contrast limits assessment of the GI tract. There is a small left inguinal hernia which contains only fat. There are colonic diverticula. There is considerable retained stool within the proximal sigmoid colon. There is no evidence of acute diverticulitis. The appendix is normal. No small bowel distention. No free or loculated intraperitoneal gas or fluid is evident. The stomach is mildly distended with gas. No downstream obstructive lesion is demonstrated, however. The duodenum and distal esophagus are unremarkable. Lack of IV contrast limits assessment of solid organs. The liver is grossly unremarkable. The gallbladder contains gallstones. No biliary ductal dilatation. The pancreas is unremarkable. The spleen demonstrates an accessory splenule, is otherwise unremarkable. The adrenals are unremarkable. The kidneys demonstrate bilateral nonspecific perinephric fat stranding. No definite focal abnormality. No hydronephrosis or hydroureter or renal or ureteral calculi demonstrated. The kidneys are somewhat atrophic. The bladder is mildly distended. No pelvic mass demonstrated. There are some prominent iliac chain nodes bilaterally, largest on the left measuring up to 19 mm long axis dimension. There are also prominent retroperitoneal nodes, largest measuring 2.4 cm long axis dimension, 1.1 cm short axis dimension. No pelvic mass. 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 There is considerable heterotopic ossification of the left hip region. Some surgical scarring is seen in the left hip region soft tissues. There are degenerative changes of the lumbar spine. The included lung bases demonstrate posterior dependent atelectatic changes. Impression: Limited assessment of the GI tract, due to lack of enteric contrast demonstration Mild gastric distention without evidence of downstream obstructive lesion. No acute process otherwise. Cholelithiasis Mildly distended bladder Colonic diverticulosis. No evidence of diverticulitis Nonspecific bilateral perinephric fat stranding Borderline bilateral iliac and retroperitoneal lymphadenopathy, of uncertain significance. Could be baseline for this patient versus reactive, less likely indicative of metastatic neoplasm or lymphoproliferative disorder Other findings as noted, including postsurgical posttraumatic changes of the left hip and femur, posterior dependent pulmonary atelectasis, degenerative lumbar spondylosis, accessory splenule, small fat-containing left inguinal hernia The CT scanner at [facility] is accredited by the [employer] and the scans are performed using protocols designed to limit radiation exposure to as low as reasonably achievable to attain images of sufficient resolution adequate for diagnostic evaluation.
[2019-07-09] MEDS ORDERED: Insulin Human Regular 100units/ml 3ml IV ONE (17:00)
[2019-07-09 17:20] VITALS: BP 117/52
[2019-07-09] MEDS ORDERED: Sennosides 8.6mg tab ORAL SCH (18:15)
[2019-07-09] MEDS ORDERED: Albuterol/Ipratropium 3ml neb HHN SCH (18:15)
[2019-07-09] MEDS ORDERED: D5 1/2NS 1,000 ML IV SCH (18:15)
[2019-07-09] MEDS ORDERED: Acetaminophen 500mg (ES) tab ORAL PRN (18:15)
[2019-07-09 20:00] VITALS: BP 95/48
[2019-07-09] MEDS ORDERED: Albuterol/Ipratropium 3ml neb HHN PRN (20:00)
[2019-07-09] MEDS ORDERED: Sennosides 8.6mg tab ORAL PRN (20:00)
--- NOTE | 2019-07-09 20:03 | Consultation ---
Consult Note Consult Note I was asked to evaluate the patient at the request of Dr. Joe Salinas for renal failure. Patient seen interviewed and examined in room 212 bed 1. Patient is a 68-year-old male. Presents with acute episode of coffee-ground emesis. Questioning the patient he claims that he has been vomiting for the past day or 2. Patient is a poor historian. Denies abdominal pain fever chills. Allergies are to aspirin codeine penicillin sulfa drugs and Bactrim. Past history significant for hypertension diabetes mellitus gastroesophageal reflux disease COPD previous TIA and CVA affecting the right arm On examination the patient has sinus tachycardia he is afebrile blood pressure earlier was 97 systolic and now is [address] installer rate is 20 Head normocephalic neck is full Heart tachycardia Lungs decreased breath sounds over the bases Abdomen is obese No leg edema right UE is immobile . Assessment/Plan Impression Upper GI bleed and coffee-ground emesis etiology unclear Acute on chronic renal failure Dehydration Electrolyte imbalance. Hyponatremia Anemia Obesity Diabetes and history of diabetic nephropathy N.p.o. IV Protonix IV hydration Keep the blood sugar in check with sliding scale insulin Urine studies Monitor renal parameters Keep the blood pressure and blood sugar in check Anemia work-up GI evaluation Per orders According to what the blood results are and how the patient condition evolves we will make the proper changes in our future management Dawson Doty MD Jul 09, 2019 20:03
[2019-07-09] MEDS ORDERED: HydrALAZINE 25mg tab ORAL PRN (20:15)
[2019-07-09] MEDS: Pantoprazole Inj IVP SCH (20:56)
[2019-07-09] MEDS: Tamsulosin 0.4mg cap ORAL SCH (20:56)
[2019-07-09] MEDS ORDERED: Insulin NPH SUBQ SCH (21:00)
[2019-07-09] MEDS: NovoLOG Insulin Flexpen SUBQ SCH (21:40)
--- NOTE | 2019-07-09 22:30 | History and Physical Report ---
DATE OF ADMISSION: 07/09/2019 [employer] DEPARTMENT MANAGER: Shin Browne M.D. CHIEF COMPLAINT: Recurrent vomiting and gastrointestinal bleed. BRIEF HISTORY: This is a 68-year-old male from [facility], presented with recurrent vomiting for two days, getting worse, sent to [place], diagnosed with gastrointestinal bleed, coffee-grounds emesis, and anemia of 9.3, and being admitted to telemetry for further care. Currently, calm in bed, in the ER [facility]. No complaint. REVIEW OF SYSTEMS: No chest pain. Slight short of breath. Slight nausea and vomiting. No diarrhea. PAST MEDICAL HISTORY: Includes diabetes, CVA, obesity, and encephalopathy. PAST SURGICAL HISTORY: Left hip. MEDICATION: Include metoprolol, Zofran, and famotidine. ALLERGIES: Penicillin. SOCIAL HISTORY: No smoking. No alcohol. No intravenous drug abuse. FAMILY HISTORY: Noncontributory. PHYSICAL EXAMINATION: GENERAL: Calm in bed, oriented x2, in no acute distress. VITAL SIGNS: Show temperature is 98, pulse 90, respirations 16, and blood pressure 143/86. CARDIOVASCULAR: No murmurs. LUNGS: Poor air exchange. ABDOMEN: Bowel sounds distant. EXTREMITIES: Show no cyanosis or edema. NEUROLOGIC: The patient moves all extremities, slightly weak. LABORATORY AND DIAGNOSTIC DATA: Labs at this time show white count 11.6, hemoglobin and hematocrit is 9.3 and 27, and platelets 246,000. BMP shows sodium 131, chloride 92, BUN and creatinine is 72 and 2.6. INR is 1.0. ASSESSMENT: 1. Vomiting. 2. Gastrointestinal bleed. 3. Coffee-grounds emesis. 4. Anemia. 5. Renal insufficiency. 6. Diabetes. 7. CVA. 8. Obesity. 9. Encephalopathy. PLAN: 1. NPO. 2. Intravenous fluids. 3. Diet per GI. 4. Blood pressure, blood sugar, and pain control. 5. Nephrology evaluation. 6. Resume home medications. 7. CBC and BMP in the morning. 8. PT and dietary evaluation. Joe Salinas D.O. DR: LEIGH ANN JOB#: [id number] CC:
[2019-07-10] VITALS: BP 98/52
[2019-07-10 04:00] VITALS: BP 111/53
[2019-07-10] MEDS: NovoLOG Insulin Flexpen SUBQ SCH ×4 (06:30→21:09)
[2019-07-10 07:43] LABS: % IRON SATURATION 37 % (15-50); IRON 82 ug/dL (50-175); TOTAL IRON BINDING CAPACITY 222 ug/dL (250-450)
[2019-07-10 08:00] VITALS: BP 100/54
[2019-07-10 08:03] LABS: ALANINE AMINOTRANSFERASE 21 U/L (12-78); ALBUMIN 2.6 G/DL (3.4-5.0); ALBUMIN/GLOBULIN RATIO 0.6 (1.0-2.7); ALKALINE PHOSPHATASE 63 U/L (46-116); ANION GAP 8 mmol/L (5-15); ASPARTATE AMINO TRANSFERASE 17 U/L (15-37); BILIRUBIN,TOTAL 0.2 MG/DL (0.2-1.0); BLOOD UREA NITROGEN 74 mg/dL (7-18); CALCIUM 8.3 MG/DL (8.5-10.1); CARBON DIOXIDE 32 MMOL/L (21-32); CHLORIDE 100 MMOL/L (98-107); CHOLESTEROL 123 MG/DL (< 200); FERRITIN 272 NG/ML (8-388); HDL CHOLESTEROL 25 MG/DL (40-60); SODIUM 140 MMOL/L (136-145); TRIGLYCERIDES 267 MG/DL (30-150)
[2019-07-10 08:28] LABS: CREATINE KINASE 26 U/L (26-308); GAMMA GLUTAMYL TRANSPEPTIDASE 33 U/L (5-85); PHOSPHORUS 3.6 MG/DL (2.5-4.9)
[2019-07-10 08:31] LABS: HEMATOCRIT 20.5 % (42.0-52.0); HEMOGLOBIN 7.1 G/DL (14.2-18.0); MEAN CORPUSCULAR VOLUME 90 FL (80-99); PLATELET COUNT 192 K/UL (150-450); RED BLOOD COUNT 2.28 M/UL (4.70-6.10); RED CELL DISTRIBUTION WIDTH 11.7 % (11.6-14.8); WHITE BLOOD COUNT 6.9 K/UL (4.8-10.8)
[2019-07-10] MEDS: Docusate 100mg cap ORAL SCH ×3 (08:42→17:31)
[2019-07-10] MEDS: Bisacodyl EC 5mg tab ORAL SCH (08:42)
[2019-07-10] MEDS: Pantoprazole Inj IVP SCH ×2 (08:43→21:03)
[2019-07-10] MEDS ORDERED: Zinc Sulfate 220mg cap ORAL SCH (09:00)
[2019-07-10] MEDS ORDERED: Ascorbic Acid 500mg tab ORAL SCH (09:00)
[2019-07-10] MEDS: Fleet's Enema 133ml RECTAL SCH (09:27)
--- NOTE | 2019-07-10 10:33 | GI Initial Consult Note ---
History of Present Illness General Date patient seen: Jul 10, 2019 Time patient seen: 10:29 Reason for Hospitalization: Gastrointestinal Bleed Referring physician: MELANI MAYER Reason for Consultation: COFFEE GROUNDS Present Illness HPI 68-year-old male history of tachycardia history of obesity presents with acute episode of coffee-ground emesis, no known aggravating relieving factors severity is mild, intermittent patient denies any chest pain shortness of breath patient denies any bloody stools patient denies any abdominal pain patient presents for evaluation for for possible GI bleed GI consulted for coffee grounds. Pt seen, awake A&O NAD with no active s/sx of N/V/D. At time of evaluation, the patient denies any abdominal pain N/V/D constipation or diarrhea. He presents today with low Hgb of 7.1 He states he had colonoscopy a few years ago but unable to recall when. Home Meds Reported Medications Ascorbic Acid* (VITAMIN C*) 500 Mg Tablet, 500 MG ORAL DAILY for wound healing, #30 TAB 0 Refills 07/09/19 Zinc Sulfate (ZINC SULFATE*) 220 Mg Capsule, 220 MG ORAL DAILY for supplement, CAP 0 Refills 07/09/19 Ondansetron* (ZOFRAN*) 4 Mg Tablet, 4 MG ORAL Q6H PRN for Nausea & Vomiting, TAB 07/09/19 Linagliptin (TRADJENTA) 5 Mg Tablet, 5 MG PO for dm, TAB 07/09/19 Sennosides (SENNA) 8.6 Mg Tablet, 8.6 MG PO for constipation, TAB 07/09/19 Atorvastatin Calcium* (LIPITOR*) 10 Mg Tablet, 10 MG ORAL BEDTIME for hyperlipidemia, TAB 07/09/19 Insulin Detemir (LEVEMIR) 100 Unit/1 Ml Vial, 0 SUBQ BEDTIME for dm, VIAL 07/09/19 Nph, Human Insulin Isophane (HUMULIN N) 100 Unit/1 Ml Vial, 0 SUBQ for dm, VIAL 07/09/19 Na Phos,M-B/Na Phos,Di-Ba* (FLEET ENEMA*) 133 Ml Enema, 133 ML RECTAL DAILY for constipation, ML 0 Refills 07/09/19 Fish Oil (Fish Oil 1,000 mg Capsule) 1 Each Capsule, 1000 MG ORAL DAILY for supplement, CAP 07/09/19 Bisacodyl* (DULCOLAX*) 5 Mg Tablet.dr, 10 MG ORAL DAILY for constpiation, #10 TAB 0 Refills 07/09/19 Valsartan (DIOVAN) 80 Mg Tab, 60 MG ORAL DAILY for htn, TAB 07/09/19 Nateglinide (Starlix) 120 Mg Tablet, 120 MG ORAL THREE TIMES A DAY, TAB 11/27/17 [place]-3 Fatty Acids/Fish Oil (FISH OIL 1,000 MG CAPSULE) 1 Each Capsule, 1000 MG ORAL DAILY, #30 CAP 0 Refills 11/27/17 Famotidine* (Pepcid 20mg tablet*) 20 Mg Tablet, 20 MG ORAL TWICE A DAY, #60 TAB 0 Refills 11/27/17 Acetaminophen* (TYLENOL EXTRA STRENGTH*) 500 Mg Tablet, 650 MG ORAL Q4HR PRN for Mild Pain/Temp > 100.5, TAB 0 Refills 11/22/17 Risperidone* (RISPERDAL*) 2 Mg Tablet, 2 MG ORAL DAILY, #30 TAB 0 Refills 11/22/17 Temazepam* (RESTORIL*) 15 Mg Capsule, 15 MG ORAL BEDTIME PRN for Insomnia, CAP 11/22/17 Amlodipine Besylate (Norvasc) 2.5 Mg Tablet, 25 MG ORAL DAILY for htn, TAB 11/22/17 Escitalopram Oxalate* (LEXAPRO*) 10 Mg Tablet, 10 MG ORAL DAILY, TAB 11/22/17 Glucagon (Glucagen) 1 Mg/1 Ml Vial, 1 MG IJ PRN for Hypoglycemia, VIAL 11/22/17 Gabapentin* (GABAPENTIN*) 400 Mg Capsule, 400 MG ORAL THREE TIMES A DAY, CAP 0 Refills 11/22/17 Tamsulosin HCl (Flomax) 0.4 Mg Cap.er.24h, 0.4 MG ORAL QHS, CAP 11/22/17 Ipratropium/Albuterol Sulfate (DuoNeb 0.5-3(2.5)mg/3ml) 3 Ml Ampul.neb, 3 ML HHN , EA 11/22/17 Discontinued Reported Medications Lorazepam* (ATIVAN*) 1 Mg Tablet, 1 MG ORAL Q6HR PRN for For Anxiety, TAB 11/27/17 Insulin Aspart* (NOVOLOG*) 100 Unit/1 Ml Insuln.pen, 0 SUBQ ACHS, #1 EA 0 Refills Sliding scale 11/27/17 Heparin Sod (Porcine) (HEPARIN SODIUM*) 5 000/1 Ml Vial, 5000 UNITS SUBQ EVERY 12 HOURS, VIAL 11/27/17 Atorvastatin Calcium* (ATORVASTATIN CALCIUM*) 20 Mg Tablet, 10 MG ORAL BEDTIME, TAB 11/27/17 Aripiprazole* (ABILIFY*) 2 Mg Tablet, 5 MG ORAL DAILY, TAB 11/27/17 Amlodipine Besylate (Norvasc) 5 Mg Tablet, 5 MG ORAL DAILY, TAB 11/27/17 Latanoprost* (XALATAN*) 2.5 Ml Drops, 1 DROP BOTH EYES BEDTIME, #2.5 ML 0 Refills 11/22/17 Ascorbic Acid* (VITAMIN C*) 500 Mg Tablet, 500 MG ORAL DAILY, #30 TAB 0 Refills 11/22/17 Tramadol Hcl* (ULTRAM*) 50 Mg Tablet, 50 MG ORAL Q6H PRN for For Pain, #30 TAB 0 Refills 11/22/17 Rifaximin* (XIFAXAN*) 550 Mg Tablet, 550 MG ORAL TID for 30 Days, MG 0 Refills 11/22/17 Multivitamins* (MULTIVITAMINS*) 1 Each Tablet, 1 TAB ORAL DAILY, TAB 0 Refills 11/22/17 Enoxaparin* (LOVENOX*) 40 Mg/0.4 Ml Inj, 40 MG SUBQ DAILY 11/22/17 Losartan Potassium* (LOSARTAN POTASSIUM*) 50 Mg Tablet, 50 MG ORAL DAILY, TAB 11/22/17 Insulin Glargine (LANTUS) 100 Unit/1 Ml Insuln.pen, 26 UNITS SUBQ BEDTIME, #1 EA 0 Refills 11/22/17 Lactobacillus Acidophilus (ACIDOPHILUS) 1 Each Capsule, 1 EACH PO, CAP 11/22/17 Arginine/Glutamine/Calcium Hmb (MARZENA PACKET) 1 Each Powd.pack, 1 EACH PO, PACK 11/22/17 Glipizide* (GLIPIZIDE*) 5 Mg Tablet, 5 MG ORAL BIDAC, TAB 11/22/17 Na Phos,M-B/Na Phos,Di-Ba* (FLEET ENEMA*) 133 Ml Enema, 133 ML RECTAL PRN for Constipation, ML 0 Refills 11/22/17 Divalproex Sodium* (DEPAKOTE ER*) 500 Mg Tab.er.24h, 750 MG ORAL EVERY 12 HOURS , TAB 11/22/17 Docusate Sodium* (COLACE*) 100 Mg Capsule, 100 MG ORAL DAILY, CAP 11/22/17 Benztropine Mesylate* (COGENTIN*) 0.5 Mg Tablet, 1 MG PO, TAB 11/22/17 Cholecalciferol (Vitamin D3)* (VITAMIN D*) 1,000 Unit Tablet, 1000 UNIT ORAL DAILY, #30 TAB 11/22/17 Calcium Carbonate/Vitamin D3 (CALCIUM 500 + VIT D 200 CAPLET) 1 Each Tablet, 1 EACH PO, TAB 11/22/17 Baclofen* (BACLOFEN*) 10 Mg Tablet, 10 MG ORAL THREE TIMES A DAY, TAB 11/22/17 Brimonidine Tartrate* (ALPHAGAN*) 5 Ml Drops, 1 DROP BOTH EYES TID, ML 11/22/17 Pioglitazone Hcl* (ACTOS*) 30 Mg Tablet, 30 MG ORAL DAILY, TAB 11/22/17 Med list reviewed/reconciled: Yes Allergies: Coded Allergies: ASPIRIN (Verified Allergy, Unknown, 11/22/17) PENICILLINS (Verified Allergy, Unknown, 11/22/17) SULFAMETHOXAZOLE (Verified Allergy, Unknown, 11/22/17) TRIMETHOPRIM (Verified Allergy, Unknown, 11/22/17) Patient History History Provided By: Patient, Medical Record PMH Narrative Past Medical History: see triage record Reviewed Nursing Documentation: PMH: Agreed; PSxH: Agreed Nursing Documentation-PMH Hx Hypertension: Yes Hx COPD: Yes Hx Diabetes: Yes Hx Gastrointestinal Problems: Yes Hx Cerebrovascular Accident: Yes - TIA Hx Seizures: Yes Social History: Denies: smoking, alcohol use, drug use, other Review of Systems All Other Systems: negative except mentioned in HPI Physical Exam Vital Signs Date Time Temp Pulse Resp B/P (MAP) Pulse Ox O2 Delivery O2 Flow Rate FiO2 07/09/19 12:47 98.2 102 19 97/66 (76) 94 Room Air 07/09/19 14:40 100 Sp02 EP Interpretation: reviewed, normal Labs Laboratory Tests Test 07/09/19 13:10 07/09/19 14:00 07/09/19 15:40 07/10/19 06:05 White Blood Count 11.6 K/UL (4.8-10.8) H Red Blood Count 3.01 M/UL (4.70-6.10) L Hemoglobin 9.3 G/DL (14.2-18.0) L Hematocrit 27.5 % (42.0-52.0) L Mean Corpuscular Volume 91 FL (80-99) Mean Corpuscular Hemoglobin 31.1 PG (27.0-31.0) H Mean Corpuscular Hemoglobin Concent 34.0 G/DL (32.0-36.0) Red Cell Distribution Width 12.3 % (11.6-14.8) Platelet Count 246 K/UL (150-450) Mean Platelet Volume 5.6 FL (6.5-10.1) L Neutrophils (%) (Auto) 81.6 % (45.0-75.0) H Lymphocytes (%) (Auto) 9.5 % (20.0-45.0) L Monocytes (%) (Auto) 8.3 % (1.0-10.0) Eosinophils (%) (Auto) 0.1 % (0.0-3.0) Basophils (%) (Auto) 0.5 % (0.0-2.0) Prothrombin Time 10.7 SEC (9.30-11.50) Prothromb Time International Ratio 1.0 (0.9-1.1) Activated Partial Thromboplast Time 27 SEC (23-33) Sodium Level 131 MMOL/L (136-145) L 140 MMOL/L (136-145) Potassium Level 5.1 MMOL/L (3.5-5.1) 4.0 MMOL/L (3.5-5.1) Chloride Level 92 MMOL/L (98-107) L 100 MMOL/L (98-107) Carbon Dioxide Level 28 MMOL/L (21-32) 32 MMOL/L (21-32) Anion Gap 11 mmol/L (5-15) 8 mmol/L (5-15) Blood Urea Nitrogen 72 mg/dL (7-18) H 74 mg/dL (7-18) H Creatinine 2.6 MG/DL (0.55-1.30) H 2.0 MG/DL (0.55-1.30) H Estimat Glomerular Filtration Rate 24.6 mL/min (>60) 33.3 mL/min (>60) Glucose Level 495 MG/DL (74-106) H 151 MG/DL (74-106) #H Calcium Level 8.6 MG/DL (8.5-10.1) 8.3 MG/DL (8.5-10.1) L Total Bilirubin 0.3 MG/DL (0.2-1.0) 0.2 MG/DL (0.2-1.0) Aspartate Amino Transf (AST/SGOT) 22 U/L (15-37) 17 U/L (15-37) Alanine Aminotransferase (ALT/SGPT) 34 U/L (12-78) 21 U/L (12-78) Alkaline Phosphatase 80 U/L (46-116) 63 U/L (46-116) Total Protein 7.2 G/DL (6.4-8.2) 6.6 G/DL (6.4-8.2) Albumin 2.4 G/DL (3.4-5.0) L 2.6 G/DL (3.4-5.0) L Globulin 4.8 g/dL 4.0 g/dL Albumin/Globulin Ratio 0.5 (1.0-2.7) L 0.6 (1.0-2.7) L Lipase 280 U/L (73-393) Lactic Acid Level 2.10 mmol/L (0.4-2.0) H 3.00 mmol/L (0.66-2.22) H Hemoglobin A1c 12.0 % (4.3-6.0) H Uric Acid 10.7 MG/DL (2.6-7.2) H Phosphorus Level 3.6 MG/DL (2.5-4.9) Magnesium Level 2.3 MG/DL (1.8-2.4) Iron Level 82 ug/dL (50-175) Total Iron Binding Capacity 222 ug/dL (250-450) L Percent Iron Saturation 37 % (15-50) Unsaturated Iron Binding 140 ug/dL (112-346) Ferritin 272 NG/ML (8-388) Gamma Glutamyl Transpeptidase 33 U/L (5-85) Total Creatine Kinase 26 U/L (26-308) Troponin I 0.013 ng/mL (0.000-0.056) C-Reactive Protein, Quantitative 3.2 mg/dL (0.00-0.90) H Pro-B-Type Natriuretic Peptide Pending Triglycerides Level 267 MG/DL (30-150) H Cholesterol Level 123 MG/DL (< 200) LDL Cholesterol 62 mg/dL (<100) HDL Cholesterol 25 MG/DL (40-60) L Cholesterol/HDL Ratio 4.9 (3.3-4.4) H Vitamin B12 Level 568 PG/ML (193-986) Folate 12.2 NG/ML (8.6-58.9) Thyroid Stimulating Hormone (TSH) 0.767 uiU/mL (0.358-3.740) Test 07/10/19 08:20 White Blood Count 6.9 K/UL (4.8-10.8) Red Blood Count 2.28 M/UL (4.70-6.10) L Hemoglobin 7.1 G/DL (14.2-18.0) L Hematocrit 20.5 % (42.0-52.0) L Mean Corpuscular Volume 90 FL (80-99) Mean Corpuscular Hemoglobin 30.9 PG (27.0-31.0) Mean Corpuscular Hemoglobin Concent 34.5 G/DL (32.0-36.0) Red Cell Distribution Width 11.7 % (11.6-14.8) Platelet Count 192 K/UL (150-450) Mean Platelet Volume 4.9 FL (6.5-10.1) L Neutrophils (%) (Auto) % (45.0-75.0) Lymphocytes (%) (Auto) % (20.0-45.0) Monocytes (%) (Auto) % (1.0-10.0) Eosinophils (%) (Auto) % (0.0-3.0) Basophils (%) (Auto) % (0.0-2.0) Neutrophils % (Manual) Pending Lymphocytes % (Manual) Pending Platelet Estimate Pending Platelet Morphology Pending General Appearance: well appearing, no apparent distress, alert Head: normocephalic EENT: PERRL/EOMI, normal ENT inspection Neck: supple Respiratory: normal breath sounds, no respiratory distress Cardiovascular: normal rate Gastrointestinal: normal inspection, non tender, soft, normal bowel sounds, non -distended Rectal: deferred Genitourinary: deferred Musculoskeletal: normal inspection, back normal Neurologic: alert, oriented x3, responsive, normal inspection Psychiatric: normal inspection, judgement/insight normal, memory normal Skin: normal inspection, normal color, no rash, warm/dry, palpation normal, well hydrated Lymphatic: normal inspection, no adenopathy Current Medications Current Medications Medications (Trade) Dose Ordered Sig/Jayden Route PRN Reason Start Time Stop Time Status Last Admin Dose Admin Acetaminophen (Tylenol) 650 mg Q4H PRN ORAL Mild Pain/Temp > 100.5 07/09/19 18:15 08/08/19 18:14 Albuterol/ Ipratropium (Albuterol/ Ipratropium) 3 ml Q4H PRN HHN Shortness of Breath 07/09/19 20:00 07/14/19 19:59 Atorvastatin Calcium (Lipitor) 10 mg BEDTIME ORAL 07/09/19 21:00 08/08/19 20:59 07/09/19 20:56 Bisacodyl (Dulcolax) 10 mg DAILY ORAL 07/10/19 09:00 08/09/19 08:59 07/10/19 08:42 Dextrose (Dextrose 50%) 25 ml Q30M PRN IV Hypoglycemia 07/09/19 20:00 08/08/19 19:59 Dextrose (Dextrose 50%) 50 ml Q30M PRN IV Hypoglycemia 07/09/19 20:00 08/08/19 19:59 Docusate Sodium (Colace) 100 mg THREE TIMES A DAY ORAL 07/10/19 09:00 08/09/19 08:59 07/10/19 08:42 Escitalopram Oxalate (Lexapro) 10 mg DAILY ORAL 07/10/19 09:00 08/09/19 08:59 07/10/19 08:42 Gabapentin (Neurontin) 400 mg THREE TIMES A DAY ORAL 07/10/19 09:00 08/09/19 08:59 07/10/19 08:42 Hydralazine HCl (Apresoline) 25 mg Q4H PRN ORAL bp over 160 syst 07/09/19 20:15 08/08/19 20:14 Insulin Aspart (NovoLOG) BEFORE MEALS AND HS SUBQ 07/09/19 21:00 08/08/19 20:59 07/09/19 21:40 Ondansetron HCl (Zofran) 4 mg Q6H PRN ORAL Nausea & Vomiting 07/09/19 18:15 08/08/19 18:14 Pantoprazole (Protonix) 40 mg EVERY 12 HOURS IVP 07/09/19 21:00 08/08/19 20:59 07/10/19 08:43 Risperidone (RisperDAL) 2 mg DAILY ORAL 07/10/19 09:00 08/24/19 08:59 07/10/19 08:42 Sennosides (Senokot) 8.6 mg Q6H PRN ORAL Constipation 07/09/19 20:00 08/08/19 19:59 Sodium Chloride 1,000 ml @ 75 mls/hr [id number] IV 07/09/19 20:15 08/08/19 20:14 07/10/19 08:45 Sodium Phosphate (Fleet's Sodium Phosl Enema) 133 ml DAILY RECTAL 07/10/19 09:00 08/09/19 08:59 07/10/19 09:27 Tamsulosin HCl (Flomax) 0.4 mg QHS ORAL 07/09/19 21:00 08/08/19 20:59 07/09/19 20:56 Temazepam (Restoril) 15 mg BEDTIME PRN ORAL Insomnia 07/09/19 18:15 07/16/19 18:14 GI: Plan Problems: (1) Diabetes mellitus (2) Morbid obesity (3) Gastrointestinal hemorrhage Plan Plan for endoscopy/colonoscopy tomorrow to evaluate GI bleed. CLD, NPO + MN. monitor H&H, prn transfusions ppi fu labs will follow with additional recommendations post procedure Discussed with Dr. Browne. Thank you for this patient referral, we will follow. The patient was seen and examined at bedside and all new and available data was reviewed in the patients chart. I agree with the above findings, impression and plan. (Patient seen earlier today. Signature stamp does not reflect patient encounter time.). - MD Radha Rodriguez An[place] SUR[employer]YOR [employer] Jul 10, 2019 10:33
[2019-07-10 12:00] VITALS: BP 109/54
--- NOTE | 2019-07-10 12:53 | Nephrology Progress Note ---
Assessment/Plan Problem List: (1) Renal failure (ARF), acute on chronic (2) Dehydration (3) Gastrointestinal hemorrhage (4) Diabetes mellitus (5) Anemia (6) Electrolyte imbalance Assessment Upper GI bleed and coffee-ground emesis etiology unclear Acute on chronic renal failure Dehydration Electrolyte imbalance. Hyponatremia Anemia worsened since yesterday Obesity Diabetes and history of diabetic nephropathy significant elevation of hemoglobin A1c Plan N.p.o. IV Protonix IV hydration Keep the blood sugar in check with sliding scale insulin Urine studies Monitor renal parameters Keep the blood pressure and blood sugar in check Anemia work-up GI evaluation Subjective ROS Limited/Unobtainable: No Constitutional: Reports: malaise, weakness Objective Objective Last 24 Hour Vital Signs Date Time Temp Pulse Resp B/P (MAP) Pulse Ox O2 Delivery O2 Flow Rate FiO2 07/10/19 12:00 79 07/10/19 09:00 Room Air 07/10/19 08:00 84 07/10/19 08:00 97.3 84 20 100/54 (69) 96 07/10/19 07:45 78 20 91 Room Air 21 07/10/19 04:00 76 07/10/19 04:00 97.3 78 19 111/53 (72) 96 07/10/19 00:00 77 07/10/19 00:00 97.1 81 19 98/52 (67) 94 07/09/19 21:00 Room Air 07/09/19 20:03 84 20 93 Room Air 21 07/09/19 20:00 82 07/09/19 20:00 96.8 84 18 95/48 (64) 93 07/09/19 17:50 Room Air 07/09/19 17:20 98.2 89 20 117/52 (73) 94 07/09/19 16:50 98.2 82 20 136/80 97 Room Air 07/09/19 14:40 90 16 Room Air 100 07/09/19 14:40 98.2 90 18 143/86 98 Room Air 07/09/19 14:38 88 146/88 Intake and Output 07/09/19 07/10/19 19:00 07:00 Intake Total 0 ml 825 ml Balance 0 ml 825 ml Intake Oral 0 ml IV Total 825 ml # Voids 2 # Bowel Movements 1 Current Medications Medications (Trade) Dose Ordered Sig/Jayden Route PRN Reason Start Time Stop Time Status Last Admin Dose Admin Acetaminophen (Tylenol) 650 mg Q4H PRN ORAL Mild Pain/Temp > 100.5 07/09/19 18:15 08/08/19 18:14 Albuterol/ Ipratropium (Albuterol/ Ipratropium) 3 ml Q4H PRN HHN Shortness of Breath 07/09/19 20:00 07/14/19 19:59 Atorvastatin Calcium (Lipitor) 10 mg BEDTIME ORAL 07/09/19 21:00 08/08/19 20:59 07/09/19 20:56 Bisacodyl (Dulcolax) 10 mg DAILY ORAL 07/10/19 09:00 08/09/19 08:59 07/10/19 08:42 Dextrose (Dextrose 50%) 25 ml Q30M PRN IV Hypoglycemia 07/09/19 20:00 08/08/19 19:59 Dextrose (Dextrose 50%) 50 ml Q30M PRN IV Hypoglycemia 07/09/19 20:00 08/08/19 19:59 Docusate Sodium (Colace) 100 mg THREE TIMES A DAY ORAL 07/10/19 09:00 08/09/19 08:59 07/10/19 12:44 Escitalopram Oxalate (Lexapro) 10 mg DAILY ORAL 07/10/19 09:00 08/09/19 08:59 07/10/19 08:42 Gabapentin (Neurontin) 400 mg THREE TIMES A DAY ORAL 07/10/19 09:00 08/09/19 08:59 07/10/19 12:45 Hydralazine HCl (Apresoline) 25 mg Q4H PRN ORAL bp over 160 syst 07/09/19 20:15 08/08/19 20:14 Insulin Aspart (NovoLOG) BEFORE MEALS AND HS SUBQ 07/09/19 21:00 08/08/19 20:59 07/10/19 11:42 Ondansetron HCl (Zofran) 4 mg Q6H PRN ORAL Nausea & Vomiting 07/09/19 18:15 08/08/19 18:14 Pantoprazole (Protonix) 40 mg EVERY 12 HOURS IVP 07/09/19 21:00 08/08/19 20:59 07/10/19 08:43 Polyethylene Glycol/ Electrolytes (Nulytely) 4,000 ml ONCE ORAL 07/10/19 16:00 07/10/19 23:59 Risperidone (RisperDAL) 2 mg DAILY ORAL 07/10/19 09:00 08/24/19 08:59 07/10/19 08:42 Sennosides (Senokot) 8.6 mg Q6H PRN ORAL Constipation 07/09/19 20:00 08/08/19 19:59 Sodium Chloride 1,000 ml @ 75 mls/hr [id number] IV 07/09/19 20:15 08/08/19 20:14 07/10/19 08:45 Sodium Phosphate (Fleet's Sodium Phosl Enema) 133 ml DAILY RECTAL 07/10/19 09:00 08/09/19 08:59 07/10/19 09:27 Tamsulosin HCl (Flomax) 0.4 mg QHS ORAL 07/09/19 21:00 08/08/19 20:59 07/09/19 20:56 Temazepam (Restoril) 15 mg BEDTIME PRN ORAL Insomnia 07/09/19 18:15 07/16/19 18:14 Laboratory Tests 07/09/19 13:10: White Blood Count 11.6H, Red Blood Count 3.01L, Hemoglobin 9.3L, Hematocrit 27.5L, Mean Corpuscular Volume 91, Mean Corpuscular Hemoglobin 31.1H, Mean Corpuscular Hemoglobin Concent 34.0, Red Cell Distribution Width 12.3, Platelet Count 246, Mean Platelet Volume 5.6L, Neutrophils (%) (Auto) 81.6H, Lymphocytes (%) (Auto) 9.5L, Monocytes (%) (Auto) 8.3, Eosinophils (%) (Auto) 0.1, Basophils (%) (Auto) 0.5, Prothrombin Time 10.7, Prothromb Time International Ratio 1.0, Activated Partial Thromboplast Time 27, Sodium Level 131L, Potassium Level 5.1, Chloride Level 92L, Carbon Dioxide Level 28, Anion Gap 11, Blood Urea Nitrogen 72H, Creatinine 2.6H, Estimat Glomerular Filtration Rate 24.6, Glucose Level 495H, Calcium Level 8.6, Total Bilirubin 0.3, Aspartate Amino Transf (AST/SGOT) 22, Alanine Aminotransferase (ALT/SGPT) 34, Alkaline Phosphatase 80, Total Protein 7.2, Albumin 2.4L, Globulin 4.8, Albumin/Globulin Ratio 0.5L, Lipase 280 07/09/19 14:00: Lactic Acid Level 2.10H 07/09/19 15:40: Lactic Acid Level 3.00H 07/10/19 06:05: Sodium Level 140, Potassium Level 4.0, Chloride Level 100, Carbon Dioxide Level 32, Anion Gap 8, Blood Urea Nitrogen 74H, Creatinine 2.0H, Estimat Glomerular Filtration Rate 33.3, Glucose Level 151#H, Calcium Level 8.3L, Total Bilirubin 0.2, Aspartate Amino Transf (AST/SGOT) 17, Alanine Aminotransferase (ALT/SGPT) 21, Alkaline Phosphatase 63, Total Protein 6.6, Albumin 2.6L, Globulin 4.0, Albumin/Globulin Ratio 0.6L, Hemoglobin A1c 12.0H, Uric Acid 10.7H, Phosphorus Level 3.6, Magnesium Level 2.3, Iron Level 82, Total Iron Binding Capacity 222L , Percent Iron Saturation 37, Unsaturated Iron Binding 140, Ferritin 272, Gamma Glutamyl Transpeptidase 33, Total Creatine Kinase 26, Troponin I 0.013, C- Reactive Protein, Quantitative 3.2H, Pro-B-Type Natriuretic Peptide [Pending], Triglycerides Level 267H, Cholesterol Level 123, LDL Cholesterol 62, HDL Cholesterol 25L, Cholesterol/HDL Ratio 4.9H, Vitamin B12 Level 568, Folate 12.2 , Thyroid Stimulating Hormone (TSH) 0.767 07/10/19 08:20: White Blood Count 6.9, Red Blood Count 2.28L, Hemoglobin 7.1L, Hematocrit 20.5L , Mean Corpuscular Volume 90, Mean Corpuscular Hemoglobin 30.9, Mean Corpuscular Hemoglobin Concent 34.5, Red Cell Distribution Width 11.7, Platelet Count 192, Mean Platelet Volume 4.9L, Neutrophils (%) (Auto) , Lymphocytes (%) ( Auto) , Monocytes (%) (Auto) , Eosinophils (%) (Auto) , Basophils (%) (Auto) , Differential Total Cells Counted 100, Neutrophils % (Manual) 69, Lymphocytes % ( Manual) 18L, Monocytes % (Manual) 11H, Eosinophils % (Manual) 2, Basophils % ( Manual) 0, Band Neutrophils 0, Platelet Estimate Adequate, Platelet Morphology Normal, Polychromasia 1+, Hypochromasia 1+ Height (Feet): 5 Height (Inches): 10.00 Weight (Pounds): 224 General Appearance: no apparent distress Cardiovascular: tachycardia Abdomen: soft, other - Obese Dawson Doty MD Jul 10, 2019 12:53
--- NOTE | 2019-07-10 14:02 | General Progress Note ---
Assessment/Plan Problem List: (1) Diabetes mellitus ICD Codes: E11.9 - Type 2 diabetes mellitus without complications SNOMED: 79676080 (2) Morbid obesity ICD Codes: E66.01 - Morbid (severe) obesity due to excess calories SNOMED: 297089275 (3) Gastrointestinal hemorrhage ICD Codes: K92.2 - Gastrointestinal hemorrhage, unspecified SNOMED: 76541737 Qualifiers: Qualified Codes: K92.2 - Gastrointestinal hemorrhage, unspecified (4) Anemia ICD Codes: D64.9 - Anemia, unspecified SNOMED: 963246804 (5) Renal failure (ARF), acute on chronic ICD Codes: N17.9 - Acute kidney failure, unspecified; N18.9 - Chronic kidney disease, unspecified SNOMED: 828166652 Status: unchanged Assessment/Plan: pt diet gi/neph f/u cbc bmp am transfuse prn Subjective Constitutional: Reports: weakness Allergies: Coded Allergies: ASPIRIN (Verified Allergy, Unknown, 11/22/17) PENICILLINS (Verified Allergy, Unknown, 11/22/17) SULFAMETHOXAZOLE (Verified Allergy, Unknown, 11/22/17) TRIMETHOPRIM (Verified Allergy, Unknown, 11/22/17) All Systems: reviewed and negative except above Subjective sleepy calm in bed Objective Last 24 Hour Vital Signs Date Time Temp Pulse Resp B/P (MAP) Pulse Ox O2 Delivery O2 Flow Rate FiO2 07/10/19 12:00 79 07/10/19 12:00 98.2 79 20 109/54 (72) 96 07/10/19 09:00 Room Air 07/10/19 08:00 84 07/10/19 08:00 97.3 84 20 100/54 (69) 96 07/10/19 07:45 78 20 91 Room Air 21 07/10/19 04:00 76 07/10/19 04:00 97.3 78 19 111/53 (72) 96 07/10/19 00:00 77 07/10/19 00:00 97.1 81 19 98/52 (67) 94 07/09/19 21:00 Room Air 07/09/19 20:03 84 20 93 Room Air 21 07/09/19 20:00 82 07/09/19 20:00 96.8 84 18 95/48 (64) 93 07/09/19 17:50 Room Air 07/09/19 17:20 98.2 89 20 117/52 (73) 94 07/09/19 16:50 98.2 82 20 136/80 97 Room Air 07/09/19 14:40 90 16 Room Air 100 07/09/19 14:40 98.2 90 18 143/86 98 Room Air 07/09/19 14:38 88 146/88 Intake and Output 07/09/19 07/10/19 19:00 07:00 Intake Total 0 ml 825 ml Balance 0 ml 825 ml Intake Oral 0 ml IV Total 825 ml # Voids 2 # Bowel Movements 1 Laboratory Tests 07/09/19 15:40: Lactic Acid Level 3.00H 07/10/19 06:05: Sodium Level 140, Potassium Level 4.0, Chloride Level 100, Carbon Dioxide Level 32, Anion Gap 8, Blood Urea Nitrogen 74H, Creatinine 2.0H, Estimat Glomerular Filtration Rate 33.3, Glucose Level 151#H, Hemoglobin A1c 12.0H, Uric Acid 10.7H , Calcium Level 8.3L, Phosphorus Level 3.6, Magnesium Level 2.3, Iron Level 82, Total Iron Binding Capacity 222L, Percent Iron Saturation 37, Unsaturated Iron Binding 140, Ferritin 272, Total Bilirubin 0.2, Gamma Glutamyl Transpeptidase 33 , Aspartate Amino Transf (AST/SGOT) 17, Alanine Aminotransferase (ALT/SGPT) 21, Alkaline Phosphatase 63, Total Creatine Kinase 26, Troponin I 0.013, C-Reactive Protein, Quantitative 3.2H, Pro-B-Type Natriuretic Peptide [Pending], Total Protein 6.6, Albumin 2.6L, Globulin 4.0, Albumin/Globulin Ratio 0.6L, Triglycerides Level 267H, Cholesterol Level 123, LDL Cholesterol 62, HDL Cholesterol 25L, Cholesterol/HDL Ratio 4.9H, Vitamin B12 Level 568, Folate 12.2 , Thyroid Stimulating Hormone (TSH) 0.767 07/10/19 08:20: White Blood Count 6.9, Red Blood Count 2.28L, Hemoglobin 7.1L, Hematocrit 20.5L , Mean Corpuscular Volume 90, Mean Corpuscular Hemoglobin 30.9, Mean Corpuscular Hemoglobin Concent 34.5, Red Cell Distribution Width 11.7, Platelet Count 192, Mean Platelet Volume 4.9L, Neutrophils (%) (Auto) , Lymphocytes (%) ( Auto) , Monocytes (%) (Auto) , Eosinophils (%) (Auto) , Basophils (%) (Auto) , Differential Total Cells Counted 100, Neutrophils % (Manual) 69, Lymphocytes % ( Manual) 18L, Monocytes % (Manual) 11H, Eosinophils % (Manual) 2, Basophils % ( Manual) 0, Band Neutrophils 0, Platelet Estimate Adequate, Platelet Morphology Normal, Polychromasia 1+, Hypochromasia 1+ Height (Feet): 5 Height (Inches): 10.00 Weight (Pounds): 224 General Appearance: lethargic EENT: normal ENT inspection Neck: normal alignment Cardiovascular: normal peripheral pulses, normal rate, regular rhythm Respiratory/Chest: chest wall non-tender, lungs clear, normal breath sounds Abdomen: normal bowel sounds, non tender, soft Extremities: normal inspection Edema: no edema noted Arm (L), no edema noted Arm (R), no edema noted Leg (L), no edema noted Leg (R), no edema noted Pedal (L), no edema noted Pedal (R), no edema noted Generalized Neurologic: motor weakness Skin: normal pigmentation, warm/dry Joe Salinas DO Jul 10, 2019 14:02
[2019-07-10 15:11] LABS: APPEARANCE,URINE CLEAR; BILIRUBIN, URINE NEGATIVE (NEGATIVE); COLOR,URINE PALE YELLOW; GLUCOSE, URINE (UA) 1+ (NEGATIVE); KETONES,URINE NEGATIVE (NEGATIVE); LEUKOCYTE ESTERASE ,URINE NEGATIVE (NEGATIVE); NITRITE,URINE NEGATIVE (NEGATIVE); PH,URINE 7 (4.5-8.0); PROTEIN,URINE NEGATIVE (NEGATIVE); UROBILINOGEN,URINE NORMAL MG/DL (0.0-1.0)
[2019-07-10 16:00] VITALS: BP 107/54
[2019-07-10] MEDS ORDERED: Nulytely 4L ORAL SCH (16:00)
[2019-07-10 20:00] VITALS: BP 107/60
[2019-07-10] MEDS: Tamsulosin 0.4mg cap ORAL SCH (21:03)
[2019-07-11] VITALS (10 sets, daily range): BP systolic 102–135; BP diastolic 51–77
[2019-07-11 05:38] LABS: HEMATOCRIT 18.4 % (42.0-52.0); MEAN CORPUSCULAR VOLUME 91 FL (80-99); PLATELET COUNT 181 K/UL (150-450); RED BLOOD COUNT 2.02 M/UL (4.70-6.10); RED CELL DISTRIBUTION WIDTH 12.1 % (11.6-14.8); WHITE BLOOD COUNT 4.7 K/UL (4.8-10.8)
[2019-07-11 05:39] LABS: INR 0.9 (0.9-1.1)
[2019-07-11 05:46] LABS: ALANINE AMINOTRANSFERASE 29 U/L (12-78); ALBUMIN 2.7 G/DL (3.4-5.0); ALBUMIN/GLOBULIN RATIO 0.7 (1.0-2.7); ALKALINE PHOSPHATASE 68 U/L (46-116); ANION GAP 7 mmol/L (5-15); ASPARTATE AMINO TRANSFERASE 21 U/L (15-37); BILIRUBIN,TOTAL 0.2 MG/DL (0.2-1.0); BLOOD UREA NITROGEN 52 mg/dL (7-18); CALCIUM 8.6 MG/DL (8.5-10.1); CARBON DIOXIDE 31 MMOL/L (21-32); CHLORIDE 105 MMOL/L (98-107); CREATININE 1.8 MG/DL (0.55-1.30); PHOSPHORUS 3.2 MG/DL (2.5-4.9); POTASSIUM 4.6 MMOL/L (3.5-5.1); SODIUM 143 MMOL/L (136-145)
[2019-07-11 05:52] LABS: HEMOGLOBIN 6.2 G/DL (14.2-18.0)
[2019-07-11] MEDS: NovoLOG Insulin Flexpen SUBQ SCH ×4 (06:13→21:05)
--- NOTE | 2019-07-11 08:02 | Anethesia Preoperative Eval ---
Anesthesia Pre-op PMH/ROS General Date of Evaluation: Jul 11, 2019 Time of Evaluation: 08:02 Anesthesiologist: kely ASA Score: ASA 4 Mallampati Score Class I : Soft palate, uvula, fauces, pillars visible Class II: Soft palate, uvula, fauces visible Class III: Soft palate, base of uvula visible Class IV: Only hard plate visible Mallampati Classification: Class II Surgeon: alexi Diagnosis: gi bleed Surgical Procedure: egd/colonoscopy Anesthesia History: none Social History: smoking - nonsmoker Family History: no anesthesia problems Allergies: Coded Allergies: ASPIRIN (Verified Allergy, Unknown, 11/22/17) PENICILLINS (Verified Allergy, Unknown, 11/22/17) SULFAMETHOXAZOLE (Verified Allergy, Unknown, 11/22/17) TRIMETHOPRIM (Verified Allergy, Unknown, 11/22/17) Medications: see eMAR Patient NPO?: Yes Past Medical History Cardiovascular: Reports: HTN, arrhythmia Pulmonary: Reports: COPD Gastrointestinal/Genitourinary: Reports: ESRD Neurologic/Psychiatric: Reports: TIA, other - seizures Musculoskeletal/Integumentary: Reports: other - pressure ulcers, Anesthesia Pre-op Phys. Exam Physician Exam Last Vital Signs Date Time Temp Pulse Resp B/P (MAP) Pulse Ox O2 Delivery O2 Flow Rate FiO2 07/11/19 04:00 98.0 78 18 110/64 (79) 95 07/10/19 21:00 Room Air 07/10/19 19:38 21 Constitutional: NAD Neurologic: other - right sided paralysis Cardiovascular: RRR Respiratory: CTA Gastrointestinal: S/NT/ND Airway Exam Mallampati Score: Class II MO: limited Neck: short TMD: 2fb ROM: limited Teeth: missing Anesthesia Pre-op A/P Labs Hematology Test 07/10/19 08:20 07/11/19 04:51 White Blood Count 6.9 K/UL (4.8-10.8) 4.7 K/UL (4.8-10.8) L Red Blood Count 2.28 M/UL (4.70-6.10) L 2.02 M/UL (4.70-6.10) L Hemoglobin 7.1 G/DL (14.2-18.0) L 6.2 G/DL (14.2-18.0) *L Hematocrit 20.5 % (42.0-52.0) L 18.4 % (42.0-52.0) L Mean Corpuscular Volume 90 FL (80-99) 91 FL (80-99) Mean Corpuscular Hemoglobin 30.9 PG (27.0-31.0) 30.8 PG (27.0-31.0) Mean Corpuscular Hemoglobin Concent 34.5 G/DL (32.0-36.0) 33.7 G/DL (32.0-36.0) Red Cell Distribution Width 11.7 % (11.6-14.8) 12.1 % (11.6-14.8) Platelet Count 192 K/UL (150-450) 181 K/UL (150-450) Mean Platelet Volume 4.9 FL (6.5-10.1) L 5.1 FL (6.5-10.1) L Neutrophils (%) (Auto) % (45.0-75.0) % (45.0-75.0) Lymphocytes (%) (Auto) % (20.0-45.0) % (20.0-45.0) Monocytes (%) (Auto) % (1.0-10.0) % (1.0-10.0) Eosinophils (%) (Auto) % (0.0-3.0) % (0.0-3.0) Basophils (%) (Auto) % (0.0-2.0) % (0.0-2.0) Differential Total Cells Counted 100 Neutrophils % (Manual) 69 % (45-75) Pending Lymphocytes % (Manual) 18 % (20-45) L Pending Monocytes % (Manual) 11 % (1-10) H Eosinophils % (Manual) 2 % (0-3) Basophils % (Manual) 0 % (0-2) Band Neutrophils 0 % (0-8) Platelet Estimate Adequate Pending Platelet Morphology Normal Pending Polychromasia 1+ Hypochromasia 1+ Coagulation Test 07/11/19 04:51 Prothrombin Time 10.0 SEC (9.30-11.50) Prothromb Time International Ratio 0.9 (0.9-1.1) Activated Partial Thromboplast Time 22 SEC (23-33) L Chemistry Test 07/11/19 04:51 Sodium Level 143 MMOL/L (136-145) Potassium Level 4.6 MMOL/L (3.5-5.1) Chloride Level 105 MMOL/L (98-107) Carbon Dioxide Level 31 MMOL/L (21-32) Anion Gap 7 mmol/L (5-15) Blood Urea Nitrogen 52 mg/dL (7-18) H Creatinine 1.8 MG/DL (0.55-1.30) H Estimat Glomerular Filtration Rate 37.6 mL/min (>60) Glucose Level 263 MG/DL (74-106) #H Uric Acid 9.0 MG/DL (2.6-7.2) H Calcium Level 8.6 MG/DL (8.5-10.1) Phosphorus Level 3.2 MG/DL (2.5-4.9) Magnesium Level 2.3 MG/DL (1.8-2.4) Total Bilirubin 0.2 MG/DL (0.2-1.0) Aspartate Amino Transf (AST/SGOT) 21 U/L (15-37) Alanine Aminotransferase (ALT/SGPT) 29 U/L (12-78) Alkaline Phosphatase 68 U/L (46-116) Total Protein 6.7 G/DL (6.4-8.2) Albumin 2.7 G/DL (3.4-5.0) L Globulin 4.0 g/dL Albumin/Globulin Ratio 0.7 (1.0-2.7) L Risk Assessment & Plan Assessment: [email or web address] Plan: mac Status Change Before Surgery: No Pre-Antibiotics Drug: Jacy Carbajal MD Jul 11, 2019 08:02
[2019-07-11] MEDS: Fleet's Enema 133ml RECTAL SCH (08:19)
[2019-07-11] MEDS: Pantoprazole Inj IVP SCH ×2 (08:20→21:00)
[2019-07-11] MEDS: Docusate 100mg cap ORAL SCH ×3 (08:22→17:47)
[2019-07-11] MEDS: Bisacodyl EC 5mg tab ORAL SCH (08:22)
[2019-07-11] MEDS ORDERED: Midazolam 2mg/2ml Inj IVP PRN (09:15)
[2019-07-11] MEDS ORDERED: DiphenhydrAMINE 50mg/ml Inj IVP PRN (09:15)
[2019-07-11] MEDS ORDERED: fentaNYL 100 mcg/2 mL IV PRN (09:15)
[2019-07-11] MEDS ORDERED: Atropine Inj 1mg/10ml Syr IV PRN (09:15)
[2019-07-11] MEDS ORDERED: NS 500ML IVPB ONE (10:00)
[2019-07-11] MEDS ORDERED: Lidocaine 1% MPF 10mg/ml 5ml ONE (10:30)
[2019-07-11] MEDS ORDERED: Propofol 200mg/20ml IV ONE (10:30)
--- NOTE | 2019-07-11 11:22 | Pre-Procedure Note/Attestation ---
Pre-Procedure Note/Attestation Complete Prior to Procedure Planned Procedure: not applicable Procedure Narrative: esophagogastroduodenoscopy and colonoscopy Indications for Procedure Pre-Operative Diagnosis: gib Attestation I attest that I discussed the nature of the procedure; its benefits; risks and complications; and alternatives (and the risks and benefits of such alternatives ), prior to the procedure, with the patient (or the patient's legal automotive leasing sales representative). I attest that, if there was a reasonable possibility of needing a blood transfusion, the patient (or the patient's legal automotive leasing sales representative) was given the [facility] standardized written summary, pursuant to the [place] Blood Safety Act ([place] Health and Safety Code # 1645, as amended). I attest that I re-evaluated the patient just prior to the surgery and that there has been no change in the patient's H&P, except as documented below: Shin Browne MD Jul 11, 2019 11:22
[2019-07-11] MEDS ORDERED: Nulytely 4L ORAL SCH (11:45)
--- NOTE | 2019-07-11 11:45 | Endoscopy Procedure Note ---
Endoscopy Procedure Note General Indication for Procedure: gib Procedures Performed: flexible sigmoidoscopy, EGD Operative Findings/Diagnosis: gastric ulcer, ppor prep Specimen: yes Pt Tolerated Procedure Well: Yes Estimated Blood Loss: none Anesthesia Anesthesiologist: rebekah Anesthesia: MAC Inserted Devices Implant(s) used?: No GI Core Measures 50 yrs or older w/o bx or poly: Not Applicable 10yrs. F/U recommended: Not Applicable Shin Browne MD Jul 11, 2019 11:45
--- NOTE | 2019-07-11 12:42 | Immediate Post-Op Evaluation ---
Immediate Post-Op Evalulation Immediate Post-Op Evalulation Procedure: egd/colonoscopy w/bx Date of Evaluation: Jul 11, 2019 Time of Evaluation: 12:03 IV Fluids: 300ml 0.9ns Blood Products: none Estimated Blood Loss: negligible Blood Pressure Systolic: 112 Blood Pressure Diastolic: 67 Pulse Rate: 73 Respiratory Rate: 18 O2 Sat by Pulse Oximetry: 99 Temperature (Fahrenheit): 97.8 Pain Score (1-10): 0 Nausea: No Vomiting: No Complications none Patient Status: awake, reacts, patent Hydration Status: adequate Drug: Jacy Carbajal MD Jul 11, 2019 12:42
--- NOTE | 2019-07-11 12:43 | 48 Hour Post Anesthesia Eval ---
Post Anesthesia Evaluation Procedure: egd/colonoscopy w/bx Date of Evaluation: Jul 11, 2019 Time of Evaluation: 12:05 Blood Pressure Systolic: 112 0: 62 Pulse Rate: 67 Respiratory Rate: 18 Temperature (Fahrenheit): 97.8 O2 Sat by Pulse Oximetry: 99 Airway: patent Nausea: No Vomiting: No Pain Intensity: 0 Hydration Status: adequate Cardiopulmonary Status: stable Mental Status/LOC: patient returned to baseline Post-Anesthesia Complications: none Follow-up care needed: N/A Jacy Medley MD Jul 11, 2019 12:43
--- NOTE | 2019-07-11 13:35 | General Progress Note ---
Assessment/Plan Problem List: (1) Diabetes mellitus ICD Codes: E11.9 - Type 2 diabetes mellitus without complications SNOMED: 12225461 (2) Morbid obesity ICD Codes: E66.01 - Morbid (severe) obesity due to excess calories SNOMED: 124473196 (3) Gastrointestinal hemorrhage ICD Codes: K92.2 - Gastrointestinal hemorrhage, unspecified SNOMED: 40065010 Qualifiers: Qualified Codes: K92.2 - Gastrointestinal hemorrhage, unspecified (4) Anemia ICD Codes: D64.9 - Anemia, unspecified SNOMED: 461852230 (5) Renal failure (ARF), acute on chronic ICD Codes: N17.9 - Acute kidney failure, unspecified; N18.9 - Chronic kidney disease, unspecified SNOMED: 551215492 Status: unchanged Assessment/Plan: pt diet gi/neph f/u cbc bmp am transfuse prn aru eval Subjective Constitutional: Reports: weakness Allergies: Coded Allergies: ASPIRIN (Verified Allergy, Unknown, 11/22/17) PENICILLINS (Verified Allergy, Unknown, 11/22/17) SULFAMETHOXAZOLE (Verified Allergy, Unknown, 11/22/17) TRIMETHOPRIM (Verified Allergy, Unknown, 11/22/17) All Systems: reviewed and negative except above Subjective sleepy calm in bed Objective Last 24 Hour Vital Signs Date Time Temp Pulse Resp B/P (MAP) Pulse Ox O2 Delivery O2 Flow Rate FiO2 07/11/19 12:43 67 18 99 07/11/19 12:42 73 18 99 07/11/19 12:20 97.5 71 15 119/70 100 Room Air 07/11/19 12:10 72 12 106/77 100 Room Air 07/11/19 12:00 67 14 112/62 100 Nasal Cannula 3 07/11/19 11:55 67 14 112/72 100 Nasal Cannula 3 07/11/19 11:51 97.8 66 12 112/67 100 Nasal Cannula 3 07/11/19 08:15 81 20 92 Room Air 21 07/11/19 08:00 96.7 76 20 135/51 (79) 97 07/11/19 08:00 80 07/11/19 04:00 98.0 78 18 110/64 (79) 95 07/11/19 04:00 81 07/11/19 00:00 97.7 80 18 102/55 (71) 95 07/11/19 00:00 80 07/10/19 21:00 Room Air 07/10/19 20:00 89 07/10/19 20:00 97.4 87 19 107/60 (76) 94 07/10/19 19:38 91 20 94 Room Air 21 07/10/19 16:00 97.7 73 20 107/54 (71) 94 07/10/19 16:00 83 Intake and Output 07/10/19 07/11/19 19:00 07:00 Intake Total 315 ml 600 ml Balance 315 ml 600 ml Intake Oral 240 ml 600 ml IV Total 75 ml # Voids 2 7 # Bowel Movements 1 7 Laboratory Tests 07/10/19 14:50: Urine Color Pale yellow, Urine Appearance Clear, Urine pH 7, Urine Specific [place] 1.005, Urine Protein Negative, Urine Glucose (UA) 1+H, Urine Ketones Negative, Urine Blood Negative, Urine Nitrite Negative, Urine Bilirubin Negative , Urine Urobilinogen Normal, Urine Leukocyte Esterase Negative, Urine RBC 0-2H, Urine WBC 0-2, Urine Squamous Epithelial Cells None, Urine Bacteria Few, Urine Eosinophils None seen, Urine Random Sodium 64 07/11/19 04:51: White Blood Count 4.7L, Red Blood Count 2.02L, Hemoglobin 6.2*L, Hematocrit 18.4L, Mean Corpuscular Volume 91, Mean Corpuscular Hemoglobin 30.8, Mean Corpuscular Hemoglobin Concent 33.7, Red Cell Distribution Width 12.1, Platelet Count 181, Mean Platelet Volume 5.1L, Neutrophils (%) (Auto) , Lymphocytes (%) ( Auto) , Monocytes (%) (Auto) , Eosinophils (%) (Auto) , Basophils (%) (Auto) , Differential Total Cells Counted 100, Neutrophils % (Manual) 61, Lymphocytes % ( Manual) 24, Monocytes % (Manual) 10, Eosinophils % (Manual) 4H, Basophils % ( Manual) 1, Band Neutrophils 0, Platelet Estimate Adequate, Platelet Morphology Normal, Hypochromasia 4+, Anisocytosis 1+, Spherocytes 2+, Prothrombin Time 10.0 , Prothromb Time International Ratio 0.9, Activated Partial Thromboplast Time 22L, Sodium Level 143, Potassium Level 4.6, Chloride Level 105, Carbon Dioxide Level 31, Anion Gap 7, Blood Urea Nitrogen 52H, Creatinine 1.8H, Estimat Glomerular Filtration Rate 37.6, Glucose Level 263#H, Uric Acid 9.0H, Calcium Level 8.6, Phosphorus Level 3.2, Magnesium Level 2.3, Total Bilirubin 0.2, Aspartate Amino Transf (AST/SGOT) 21, Alanine Aminotransferase (ALT/SGPT) 29, Alkaline Phosphatase 68, Total Protein 6.7, Albumin 2.7L, Globulin 4.0, Albumin/ Globulin Ratio 0.7L Height (Feet): 5 Height (Inches): 9.00 Weight (Pounds): 224 General Appearance: lethargic EENT: normal ENT inspection Neck: normal alignment Cardiovascular: normal peripheral pulses, normal rate, regular rhythm Respiratory/Chest: chest wall non-tender Abdomen: normal bowel sounds, non tender, soft Extremities: normal inspection Edema: no edema noted Arm (L), no edema noted Arm (R), no edema noted Leg (L), no edema noted Leg (R), no edema noted Pedal (L), no edema noted Pedal (R), no edema noted Generalized Neurologic: motor weakness Skin: normal pigmentation, warm/dry Joe Salinas DO Jul 11, 2019 13:35
--- NOTE | 2019-07-11 15:21 | Nephrology Progress Note ---
Assessment/Plan Problem List: (1) Renal failure (ARF), acute on chronic (2) Dehydration (3) Gastrointestinal hemorrhage (4) Diabetes mellitus (5) Anemia (6) Electrolyte imbalance Assessment Upper GI bleed and coffee-ground emesis etiology unclear Acute on chronic renal failure Dehydration Electrolyte imbalance. Hyponatremia Anemia worsened since yesterday Obesity Diabetes and history of diabetic nephropathy significant elevation of hemoglobin A1c Plan Transfusion But N.p.o. IV Protonix IV hydration Keep the blood sugar in check with sliding scale insulin Urine studies Monitor renal parameters Keep the blood pressure and blood sugar in check Anemia work-up GI evaluation Subjective ROS Limited/Unobtainable: No Constitutional: Reports: malaise, weakness Objective Objective Last 24 Hour Vital Signs Date Time Temp Pulse Resp B/P (MAP) Pulse Ox O2 Delivery O2 Flow Rate FiO2 07/11/19 12:43 67 18 99 07/11/19 12:42 73 18 99 07/11/19 12:20 97.5 71 15 119/70 100 Room Air 07/11/19 12:10 72 12 106/77 100 Room Air 07/11/19 12:00 67 14 112/62 100 Nasal Cannula 3 07/11/19 11:55 67 14 112/72 100 Nasal Cannula 3 07/11/19 11:51 97.8 66 12 112/67 100 Nasal Cannula 3 07/11/19 09:00 Room Air 07/11/19 08:15 81 20 92 Room Air 21 07/11/19 08:00 96.7 76 20 135/51 (79) 97 07/11/19 08:00 80 07/11/19 04:00 98.0 78 18 110/64 (79) 95 07/11/19 04:00 81 07/11/19 00:00 97.7 80 18 102/55 (71) 95 07/11/19 00:00 80 07/10/19 21:00 Room Air 07/10/19 20:00 89 07/10/19 20:00 97.4 87 19 107/60 (76) 94 07/10/19 19:38 91 20 94 Room Air 21 07/10/19 16:00 97.7 73 20 107/54 (71) 94 07/10/19 16:00 83 Intake and Output 07/10/19 07/11/19 19:00 07:00 Intake Total 315 ml 600 ml Balance 315 ml 600 ml Intake Oral 240 ml 600 ml IV Total 75 ml # Voids 2 7 # Bowel Movements 1 7 Laboratory Tests 07/11/19 04:51: White Blood Count 4.7L, Red Blood Count 2.02L, Hemoglobin 6.2*L, Hematocrit 18.4L, Mean Corpuscular Volume 91, Mean Corpuscular Hemoglobin 30.8, Mean Corpuscular Hemoglobin Concent 33.7, Red Cell Distribution Width 12.1, Platelet Count 181, Mean Platelet Volume 5.1L, Neutrophils (%) (Auto) , Lymphocytes (%) ( Auto) , Monocytes (%) (Auto) , Eosinophils (%) (Auto) , Basophils (%) (Auto) , Differential Total Cells Counted 100, Neutrophils % (Manual) 61, Lymphocytes % ( Manual) 24, Monocytes % (Manual) 10, Eosinophils % (Manual) 4H, Basophils % ( Manual) 1, Band Neutrophils 0, Platelet Estimate Adequate, Platelet Morphology Normal, Hypochromasia 4+, Anisocytosis 1+, Spherocytes 2+, Prothrombin Time 10.0 , Prothromb Time International Ratio 0.9, Activated Partial Thromboplast Time 22L, Sodium Level 143, Potassium Level 4.6, Chloride Level 105, Carbon Dioxide Level 31, Anion Gap 7, Blood Urea Nitrogen 52H, Creatinine 1.8H, Estimat Glomerular Filtration Rate 37.6, Glucose Level 263#H, Uric Acid 9.0H, Calcium Level 8.6, Phosphorus Level 3.2, Magnesium Level 2.3, Total Bilirubin 0.2, Aspartate Amino Transf (AST/SGOT) 21, Alanine Aminotransferase (ALT/SGPT) 29, Alkaline Phosphatase 68, Total Protein 6.7, Albumin 2.7L, Globulin 4.0, Albumin/ Globulin Ratio 0.7L Height (Feet): 5 Height (Inches): 9.00 Weight (Pounds): 224 General Appearance: no apparent distress Cardiovascular: normal rate Respiratory/Chest: decreased breath sounds Abdomen: soft, other - Obese Objective No change Dawson Doty MD Jul 11, 2019 15:21
--- NOTE | 2019-07-11 17:30 | Procedure Note ---
DATE OF PROCEDURE: 07/11/2019 SURGEON: Shin Browne M.D. PROCEDURE: Upper endoscopy with biopsy and . ANESTHESIA: Per Dr. Mccall. INSTRUMENT: Olympus adult flexible upper endoscope and colonoscope. INDICATION: GI bleeding. REASON FOR PROCEDURE: The procedure, risks, benefits, and possible consequences, including hemorrhage, aspiration, perforation and infection, and alternative treatments, were explained to the patient/legal guardian by Dr. Shin Browne and the patient/legal guardian understood and accepted these risks. DESCRIPTION OF PROCEDURE: After informed consent was obtained and the patient was adequately sedated, Olympus upper endoscope was advanced from mouth into the second portion of the duodenum and retroflexion was performed in the stomach. The patient has 3 shallow ulcerations at junction of the antrum and body of the stomach around the greater curvature unlikely the source of bleeding. Random biopsy from antrum was obtained to rule out H. pylori infection. Then, the upper scope was retrieved. The patient was turned over for colonoscopy. First, rectal exam was performed, which was positive for internal hemorrhoids. Then, scope was advanced from rectum into the sigmoid colon. Unfortunately given the poor prep, we could not advance the scope. The patient had evidence of maroonish colored stool suggestive of GI bleeding. SUMMARY OF FINDINGS: 1. Three shallow ulcerations in the stomach, unlikely the source of GI bleeding. 2. Gastritis, status post biopsy. 3. Incomplete colonoscopy examination secondary to poor prep. PLAN: 1. Follow biopsy results and treat accordingly. 2. We will transfuse today and reschedule colonoscopy for tomorrow with better prep. I want to thank, Dr. Joe Salinas, for this kind referral. Shin Browne M.D. DR: TA JOB#: [id number] CC: Joe Salinas D.O.
[2019-07-11] MEDS ORDERED: BISACODYL10 M1 RC (18:46)
[2019-07-11] MEDS ORDERED: HUMULIN 70100 UNIT/2 SUBQ (18:46)
[2019-07-11] MEDS ORDERED: DEPAKOTE ER250 MG ORAL (18:46)
[2019-07-11] MEDS ORDERED: MULTIVITAMINS1 EAC2 ORAL (18:46)
[2019-07-11] MEDS ORDERED: COLACE100 MG ORAL (18:46)
[2019-07-11] MEDS ORDERED: MILK OF MA400 MG/51 ORAL (18:46)
[2019-07-11] MEDS ORDERED: ONDANSETRON4 MG/2 M2 IM (18:46)
[2019-07-11] MEDS ORDERED: BRIMONIDINE TART5 ML BOTH EYES (18:46)
[2019-07-11] MEDS ORDERED: RISPERDAL0.5 MG ORAL (18:46)
[2019-07-11] MEDS ORDERED: ACETAMINOPHEN325 M1 ORAL (18:46)
--- NOTE | 2019-07-11 19:25 | Consultation ---
History of Present Illness General Date patient seen: Jul 11, 2019 Reason for Hospitalization: Gastrointestinal Bleed Present Illness HPI This is a very pleasant 68-year-old male with past medical history of tachycardia, multi-medical comorbidities, and who obesity presents with acute episode of coffee-ground emesis. There is no known aggravating relieving factors, severity is mild, intermittent patient denies any chest pain shortness of breath patient denies any bloody stools patient denies any abdominal pain patient presents for evaluation for for possible GI bleed. Surgery consulted for coffee ground emesis and possible GI bleed. Pt seen, patient evaluated chart reviewed he is awake A&O NAD with no active s/sx of N/V/D. At time of evaluation, the patient denies any abdominal pain N/V/D constipation or diarrhea. He presents today with low Hgb of 7.1 He states he had colonoscopy a few years ago but unable to recall when. No active bleeding currently noted. Noted to have decubitus ulcer as well on admission. Allergies: Coded Allergies: ASPIRIN (Verified Allergy, Unknown, 11/22/17) PENICILLINS (Verified Allergy, Unknown, 11/22/17) SULFAMETHOXAZOLE (Verified Allergy, Unknown, 11/22/17) TRIMETHOPRIM (Verified Allergy, Unknown, 11/22/17) Medication History Scheduled Amlodipine Besylate (Norvasc), 2.5 MG ORAL DAILY, (Reported) Ascorbic Acid* (Vitamin C*), 500 MG ORAL DAILY, (Reported) Atorvastatin Calcium* (Lipitor*), 10 MG ORAL BEDTIME, (Reported) Brimonidine Tartrate* (Alphagan*), 1 DROP BOTH EYES TID, (Reported) Divalproex Sodium* (Depakote Er*), 750 MG ORAL EVERY 12 HOURS, (Reported) Docusate Sodium* (Colace*), 100 MG ORAL DAILY, (Reported) Escitalopram Oxalate* (Lexapro*), 10 MG ORAL DAILY, (Reported) Famotidine* (Pepcid 20mg tablet*), 20 MG ORAL ACBREAKFAST, (Reported) Fish Oil (Fish Oil 1,000 mg Capsule), 1,000 MG ORAL DAILY, (Reported) Gabapentin* (Gabapentin*), 400 MG ORAL THREE TIMES A DAY, (Reported) Hum Insulin Nph/Reg Insulin Hm (Humulin 70-30 Vial), 20 UNITS SUBQ EVERY EVENING , (Reported) Insulin Detemir (Levemir), 0 SUBQ BID, (Reported) Ipratropium/Albuterol Sulfate (DuoNeb 0.5-3(2.5)mg/3ml), 3 ML HHN Q4HR, ( Reported) Linagliptin (Tradjenta), 5 MG PO DAILY, (Reported) Multivitamins* (Multivitamins*), 1 TAB ORAL DAILY, (Reported) Nateglinide (Starlix), 120 MG ORAL THREE TIMES A DAY, (Reported) Risperidone* (Risperdal*), 0.5 MG ORAL BID, (Reported) Sennosides (Senna), 17.2 MG PO QHS, (Reported) Tamsulosin HCl (Flomax), 0.4 MG ORAL QHS, (Reported) Valsartan (Diovan), 80 MG ORAL DAILY, (Reported) Zinc Sulfate (Zinc Sulfate*), 220 MG ORAL DAILY, (Reported) Scheduled PRN Acetaminophen* (Acetaminophen 325MG Tablet*), 650 MG ORAL Q4H PRN for Mild Pain/ Temp > 100.5, (Reported) Bisacodyl (Bisacodyl), 10 MG RC DAILY PRN for Constipation, (Reported) Glucagon (Glucagen), 1 MG IM for Hypoglycemia, (Reported) Magnesium Hydroxide* (Milk Of Magnesia*), 30 ML ORAL QHS PRN for CONSTIPATION, ( Reported) Na Phos,M-B/Na Phos,Di-Ba* (Fleet Enema*), 133 ML RECTAL EVERY OTHER DAY PRN for Constipation, (Reported) Ondansetron* (Zofran 4 Mg/2 Ml Vial*), 4 MG IM Q6H PRN for Nausea & Vomiting, ( Reported) Temazepam* (Restoril*), 15 MG ORAL BEDTIME PRN for Insomnia, (Reported) Discontinued Medications Acetaminophen* (Tylenol Extra Strength*), 650 MG ORAL Q4HR PRN for Mild Pain/ Temp > 100.5, (Reported) Discontinued Reason: Prescription changed Amlodipine Besylate (Norvasc), 5 MG ORAL DAILY, (Reported) Discontinued Reason: Pt stopped taking med Arginine/Glutamine/Calcium Hmb (Ferdo Packet), 1 EACH PO, (Reported) Discontinued Reason: Pt stopped taking med Aripiprazole* (Abilify*), 5 MG ORAL DAILY, (Reported) Discontinued Reason: Pt stopped taking med Ascorbic Acid* (Vitamin C*), 500 MG ORAL DAILY, (Reported) Discontinued Reason: Pt stopped taking med Atorvastatin Calcium* (Atorvastatin Calcium*), 10 MG ORAL BEDTIME, (Reported) Discontinued Reason: Pt stopped taking med Baclofen* (Baclofen*), 10 MG ORAL THREE TIMES A DAY, (Reported) Discontinued Reason: Pt stopped taking med Benztropine Mesylate* (Cogentin*), 1 MG PO, (Reported) Discontinued Reason: Pt stopped taking med Bisacodyl* (Dulcolax*), 10 MG ORAL DAILY, (Reported) Discontinued Reason: Prescription changed Brimonidine Tartrate* (Alphagan*), 1 DROP BOTH EYES TID, (Reported) Discontinued Reason: Pt stopped taking med Calcium Carbonate/Vitamin D3 (Calcium 500 + Vit D 200 Caplet), 1 EACH PO, ( Reported) Discontinued Reason: Pt stopped taking med Cholecalciferol (Vitamin D3)* (Vitamin D*), 1,000 UNIT ORAL DAILY, (Reported) Discontinued Reason: Pt stopped taking med Divalproex Sodium* (Depakote Er*), 750 MG ORAL EVERY 12 HOURS, (Reported) Discontinued Reason: Pt stopped taking med Docusate Sodium* (Colace*), 100 MG ORAL DAILY, (Reported) Discontinued Reason: Pt stopped taking med Enoxaparin* (Lovenox*), 40 MG SUBQ DAILY, (Reported) Discontinued Reason: Pt stopped taking med Glipizide* (Glipizide*), 5 MG ORAL BIDAC, (Reported) Discontinued Reason: Pt stopped taking med Heparin Sod (Porcine) (Heparin Sodium*), 5,000 UNITS SUBQ EVERY 12 HOURS, ( Reported) Discontinued Reason: Pt stopped taking med Insulin Aspart* (Novolog*), 0 SUBQ ACHS, (Reported) Discontinued Reason: Pt stopped taking med Insulin Glargine (Lantus), 26 UNITS SUBQ BEDTIME, (Reported) Discontinued Reason: Pt stopped taking med Lactobacillus Acidophilus (Acidophilus), 1 EACH PO, (Reported) Discontinued Reason: Pt stopped taking med Latanoprost* (Xalatan*), 1 DROP BOTH EYES BEDTIME, (Reported) Discontinued Reason: Pt stopped taking med Lorazepam* (Ativan*), 1 MG ORAL Q6HR PRN for For Anxiety, (Reported) Discontinued Reason: Pt stopped taking med Losartan Potassium* (Losartan Potassium*), 50 MG ORAL DAILY, (Reported) Discontinued Reason: Pt stopped taking med Multivitamins* (Multivitamins*), 1 TAB ORAL DAILY, (Reported) Discontinued Reason: Pt stopped taking med Na Phos,M-B/Na Phos,Di-Ba* (Fleet Enema*), 133 ML RECTAL for Constipation, ( Reported) Discontinued Reason: Pt stopped taking med Nph, Human Insulin Isophane (Humulin N), 0 SUBQ, (Reported) Discontinued Reason: Prescription changed Ondansetron* (Zofran*), 4 MG ORAL Q6H PRN for Nausea & Vomiting, (Reported) Discontinued Reason: Prescription changed Pioglitazone Hcl* (Actos*), 30 MG ORAL DAILY, (Reported) Discontinued Reason: Pt stopped taking med Rifaximin* (Xifaxan*), 550 MG ORAL TID, (Reported) Discontinued Reason: Pt stopped taking med Risperidone* (Risperdal*), 2 MG ORAL DAILY, (Reported) Discontinued Reason: Prescription changed Tramadol Hcl* (Ultram*), 50 MG ORAL Q6H PRN for For Pain, (Reported) Discontinued Reason: Pt stopped taking med Patient History History Provided By: Patient, Medical Record, PMD Healthcare decision maker Resuscitation status Do Not Resuscitate Advanced Directive on File No Past Medical/Surgical History Past Medical/Surgical History: (1) Dementia (2) Acute encephalopathy (3) Fever (4) SOB (shortness of breath) (5) Diabetes mellitus (6) Morbid obesity (7) Gastrointestinal hemorrhage (8) Dehydration (9) Anemia (10) Renal failure (ARF), acute on chronic (11) Electrolyte imbalance Review of Systems Review of Symptoms General ROS: no weight loss or fever Psychological ROS: no depression or mood changes, no memory loss Ophthalmic ROS: no visual changes or eye irritation ENT ROS: no nasal congestion, hearing loss, dizziness Allergy and Immunology ROS: no allergic symptoms or urticaria Hematological and Lymphatic ROS: no swollen glands, unusual bleeding or bruising Endocrine ROS: no polyuria, polydipsia, weight changes, temperature intolerance Respiratory ROS: no cough, shortness of breath, or wheezing Cardiovascular ROS: no chest pain or dyspnea on exertion Gastrointestinal ROS: denies abdominal pain, bright red blood in stool. Musculoskeletal ROS: no myalgias or arthralgias Neurological ROS: no TIA or stroke symptoms Dermatological ROS: no new or changing skin lesions, rashes or pruritis Physical Exam Physical Exam General appearance: alert, cooperative, no distress, appears stated age Head: Normocephalic, without obvious abnormality, atraumatic Eyes: conjunctivae/corneas clear. PERRL, EOM's intact. Fundi benign Throat: Lips, mucosa, and tongue normal. Teeth and gums normal Neck: supple, symmetrical, trachea midline, no adenopathy, thyroid: not enlarged, symmetric, no tenderness/mass/nodules, no carotid bruit and no JVD Lungs: clear to auscultation bilaterally Heart: regular rate and rhythm, S1, S2 normal, no murmur, click, rub or gallop Abdomen: soft, non-tender. Bowel sounds normal. No masses, no organomegaly Extremities: extremities normal, atraumatic, no cyanosis or edema Pulses: 2+ and symmetric Skin: Skin color, texture, turgor normal. No rashes or lesions see below Neurologic: Grossly normal Last 24 Hour Vital Signs Date Time Temp Pulse Resp B/P (MAP) Pulse Ox O2 Delivery O2 Flow Rate FiO2 07/11/19 16:00 81 07/11/19 16:00 96.4 75 19 128/64 (85) 99 07/11/19 12:43 67 18 99 07/11/19 12:42 73 18 99 07/11/19 12:20 97.5 71 15 119/70 100 Room Air 07/11/19 12:10 72 12 106/77 100 Room Air 07/11/19 12:00 67 14 112/62 100 Nasal Cannula 3 07/11/19 11:55 67 14 112/72 100 Nasal Cannula 3 07/11/19 11:51 97.8 66 12 112/67 100 Nasal Cannula 3 07/11/19 09:00 Room Air 07/11/19 08:15 81 20 92 Room Air 21 07/11/19 08:00 96.7 76 20 135/51 (79) 97 07/11/19 08:00 80 07/11/19 04:00 98.0 78 18 110/64 (79) 95 07/11/19 04:00 81 07/11/19 00:00 97.7 80 18 102/55 (71) 95 07/11/19 00:00 80 07/10/19 21:00 Room Air 07/10/19 20:00 89 07/10/19 20:00 97.4 87 19 107/60 (76) 94 07/10/19 19:38 91 20 94 Room Air 21 Intake and Output 07/10/19 07/11/19 19:00 07:00 Intake Total 315 ml 600 ml Balance 315 ml 600 ml Intake Oral 240 ml 600 ml IV Total 75 ml # Voids 2 7 # Bowel Movements 1 7 Laboratory Tests Test 07/11/19 04:51 White Blood Count 4.7 K/UL (4.8-10.8) L Red Blood Count 2.02 M/UL (4.70-6.10) L Hemoglobin 6.2 G/DL (14.2-18.0) *L Hematocrit 18.4 % (42.0-52.0) L Mean Corpuscular Volume 91 FL (80-99) Mean Corpuscular Hemoglobin 30.8 PG (27.0-31.0) Mean Corpuscular Hemoglobin Concent 33.7 G/DL (32.0-36.0) Red Cell Distribution Width 12.1 % (11.6-14.8) Platelet Count 181 K/UL (150-450) Mean Platelet Volume 5.1 FL (6.5-10.1) L Neutrophils (%) (Auto) % (45.0-75.0) Lymphocytes (%) (Auto) % (20.0-45.0) Monocytes (%) (Auto) % (1.0-10.0) Eosinophils (%) (Auto) % (0.0-3.0) Basophils (%) (Auto) % (0.0-2.0) Differential Total Cells Counted 100 Neutrophils % (Manual) 61 % (45-75) Lymphocytes % (Manual) 24 % (20-45) Monocytes % (Manual) 10 % (1-10) Eosinophils % (Manual) 4 % (0-3) H Basophils % (Manual) 1 % (0-2) Band Neutrophils 0 % (0-8) Platelet Estimate Adequate Platelet Morphology Normal Hypochromasia 4+ Anisocytosis 1+ Spherocytes 2+ Prothrombin Time 10.0 SEC (9.30-11.50) Prothromb Time International Ratio 0.9 (0.9-1.1) Activated Partial Thromboplast Time 22 SEC (23-33) L Sodium Level 143 MMOL/L (136-145) Potassium Level 4.6 MMOL/L (3.5-5.1) Chloride Level 105 MMOL/L (98-107) Carbon Dioxide Level 31 MMOL/L (21-32) Anion Gap 7 mmol/L (5-15) Blood Urea Nitrogen 52 mg/dL (7-18) H Creatinine 1.8 MG/DL (0.55-1.30) H Estimat Glomerular Filtration Rate 37.6 mL/min (>60) Glucose Level 263 MG/DL (74-106) #H Uric Acid 9.0 MG/DL (2.6-7.2) H Calcium Level 8.6 MG/DL (8.5-10.1) Phosphorus Level 3.2 MG/DL (2.5-4.9) Magnesium Level 2.3 MG/DL (1.8-2.4) Total Bilirubin 0.2 MG/DL (0.2-1.0) Aspartate Amino Transf (AST/SGOT) 21 U/L (15-37) Alanine Aminotransferase (ALT/SGPT) 29 U/L (12-78) Alkaline Phosphatase 68 U/L (46-116) Total Protein 6.7 G/DL (6.4-8.2) Albumin 2.7 G/DL (3.4-5.0) L Globulin 4.0 g/dL Albumin/Globulin Ratio 0.7 (1.0-2.7) L Height (Feet): 5 Height (Inches): 9.00 Weight (Pounds): 224 Medications Current Medications Medications (Trade) Dose Ordered Sig/Jayden Route PRN Reason Start Time Stop Time Status Last Admin Dose Admin Acetaminophen (Tylenol) 650 mg Q4H PRN ORAL Mild Pain/Temp > 100.5 07/09/19 18:15 08/08/19 18:14 Albuterol/ Ipratropium (Albuterol/ Ipratropium) 3 ml Q4H PRN HHN Shortness of Breath 07/09/19 20:00 07/14/19 19:59 Atorvastatin Calcium (Lipitor) 10 mg BEDTIME ORAL 07/09/19 21:00 08/08/19 20:59 07/10/19 21:03 Bisacodyl (Dulcolax) 10 mg DAILY ORAL 07/10/19 09:00 08/09/19 08:59 07/10/19 08:42 Dextrose (Dextrose 50%) 25 ml Q30M PRN IV Hypoglycemia 07/09/19 20:00 08/08/19 19:59 Dextrose (Dextrose 50%) 50 ml Q30M PRN IV Hypoglycemia 07/09/19 20:00 08/08/19 19:59 Docusate Sodium (Colace) 100 mg THREE TIMES A DAY ORAL 07/10/19 09:00 08/09/19 08:59 07/11/19 17:47 Escitalopram Oxalate (Lexapro) 10 mg DAILY ORAL 07/10/19 09:00 08/09/19 08:59 07/10/19 08:42 Gabapentin (Neurontin) 400 mg THREE TIMES A DAY ORAL 07/10/19 09:00 08/09/19 08:59 07/11/19 17:47 Hydralazine HCl (Apresoline) 25 mg Q4H PRN ORAL bp over 160 syst 07/09/19 20:15 08/08/19 20:14 Insulin Aspart (NovoLOG) BEFORE MEALS AND HS SUBQ 07/09/19 21:00 08/08/19 20:59 07/11/19 17:49 Ondansetron HCl (Zofran) 4 mg Q6H PRN ORAL Nausea & Vomiting 07/09/19 18:15 08/08/19 18:14 Pantoprazole (Protonix) 40 mg EVERY 12 HOURS IVP 07/09/19 21:00 08/08/19 20:59 07/11/19 08:20 Polyethylene Glycol/ Electrolytes (Nulytely) 4,000 ml ONCE ORAL 07/11/19 11:45 07/11/19 20:00 07/11/19 13:47 Risperidone (RisperDAL) 2 mg DAILY ORAL 07/10/19 09:00 08/24/19 08:59 07/10/19 08:42 Sennosides (Senokot) 8.6 mg Q6H PRN ORAL Constipation 07/09/19 20:00 08/08/19 19:59 Sodium Chloride 1,000 ml @ 75 mls/hr [id number] IV 3/10/20 20:15 08/08/19 20:14 07/11/19 13:02 Sodium Phosphate (Fleet's Sodium Phosl Enema) 133 ml DAILY RECTAL 07/10/19 09:00 08/09/19 08:59 07/11/19 08:19 Tamsulosin HCl (Flomax) 0.4 mg QHS ORAL 07/09/19 21:00 08/08/19 20:59 07/10/19 21:03 Temazepam (Restoril) 15 mg BEDTIME PRN ORAL Insomnia 07/09/19 18:15 07/16/19 18:14 Assessment/Plan Problem List: (1) Decubitus skin ulcer Assessment & Plan: Patient presented on admission with full thickness stage 4 pressure injury L buttocks (L)1.1cm x (W)1.5cm x (D)0.3cm. Base of wound is sapphire and moist. Borders are macerated .Surrounding non-blanching erythema without induration. Pt complained of pain when minimally palpated. Base of scrotum is erythematous with small area of shearing noted. Medial boggy with non-blanching erythema. Pt yells when minimally palpated. (L) 5.5cm x (W)5cm. Historical scar L heel. L heel is boggy but blanchable. Tx.Plan: Cleanse L buttocks with Saline. Apply TheraHoney. Apply Moisture Barrier Paste periwound. Cover with Optifoam Drsg Daily and prn. Apply Moisture Barrier Paste to scrotum with each Incontinence care. Apply Cavilon Skin Barrier to both heels. Cover each heel with Optifoam drsg. Change every 7 days and prn. Reposition at least every 2hours or as tolerated. Off-load heels with pillow. APM/IRIS Mattress overlay. ICD Codes: L89.90 - Pressure ulcer of unspecified site, unspecified stage SNOMED: 853134410 (2) Gastrointestinal hemorrhage Assessment & Plan: Patient with coffee-ground emesis possible GI bleed severe anemia requiring transfusion Currently no active bleeding noted Agree with GI recommend endoscopy/colonoscopy for evaluation PPI N.p.o. IV fluids Trend labs We will follow with recommendations as work-up completed thank you for let me participate in patient's care There is a small left inguinal hernia which contains only fat. There are colonic diverticula. There is considerable retained stool within the proximal sigmoid colon. There is no evidence of acute diverticulitis. The appendix is normal. No small bowel distention. No free or loculated intraperitoneal gas or fluid is evident. The stomach is mildly distended with gas. No downstream obstructive lesion is demonstrated, however. The duodenum and distal esophagus are unremarkable. Lack of IV contrast limits assessment of solid organs. The liver is grossly unremarkable. The gallbladder contains gallstones. No biliary ductal dilatation. The pancreas is unremarkable. The spleen demonstrates an accessory splenule, is otherwise unremarkable. The adrenals are unremarkable. The kidneys demonstrate bilateral nonspecific perinephric fat stranding. No definite focal abnormality. No hydronephrosis or hydroureter or renal or ureteral calculi demonstrated. The kidneys are somewhat atrophic. The bladder is mildly distended. No pelvic mass demonstrated. There are some prominent iliac chain nodes bilaterally, largest on the left measuring up to 19 mm long axis dimension. There are also prominent retroperitoneal nodes, largest measuring 2.4 cm long axis dimension, 1.1 cm short axis dimension. No pelvic mass. 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 There is considerable heterotopic ossification of the left hip region. Some surgical scarring is seen in the left hip region soft tissues. There are degenerative changes of the lumbar spine. The included lung bases demonstrate posterior dependent atelectatic changes. Impression: Limited assessment of the GI tract, due to lack of enteric contrast demonstration Mild gastric distention without evidence of downstream obstructive lesion. No acute process otherwise. Cholelithiasis Mildly distended bladder Colonic diverticulosis. No evidence of diverticulitis Nonspecific bilateral perinephric fat stranding Borderline bilateral iliac and retroperitoneal lymphadenopathy, of uncertain significance. Could be baseline for this patient versus reactive, less likely indicative of metastatic neoplasm or lymphoproliferative disorder ICD Codes: K92.2 - Gastrointestinal hemorrhage, unspecified SNOMED: 51211513 Qualifiers: Qualified Codes: K92.2 - Gastrointestinal hemorrhage, unspecified (3) Morbid obesity ICD Codes: E66.01 - Morbid (severe) obesity due to excess calories SNOMED: 071514894 [place] Jul 11, 2019 19:25
[2019-07-11] MEDS: Tamsulosin 0.4mg cap ORAL SCH (21:00)
[2019-07-12] VITALS (10 sets, daily range): BP systolic 108–141; BP diastolic 58–67
--- NOTE | 2019-07-12 00:45 | Progress Note ---
DATE: 07/11/2019 PSYCHOTHERAPY CONSULTATION PROGRESS NOTE TREATING ATTENDING PHYSICIAN: Joe Salinas D.O. HISTORY OF PRESENT ILLNESS: The patient is a male patient, 68 years old, brought into the hospital for gastrointestinal bleeding. Apparently, this patient has a diagnosis of anxiety, depression, and he has been anxious and depressed, and for these reasons, he was referred for psychotherapeutic services. The patient has also been slightly confused. He is from [facility]. Today, when I assessed this patient, the patient was tearful, he stated that his sister had called and he does not have a great relationship with his family members, does not meet them, tearful. The patient states "I am anxious, but I feel good. I am not depressed." The patient is very cooperative. He denies suicidal or homicidal thoughts of ideation, denies any auditory or visual hallucinations. The patient is cooperative with the treatment, irritability. He is tearful because of the worthy virus, however, he is cooperative. PAST MEDICAL HISTORY: Includes a history of CVA, obesity, diabetes. ALLERGIES: The patient is allergic to penicillin. SUBSTANCE ABUSE: He denies history of alcohol use, illicit substance use, or smoking cigarettes. PSYCHIATRIC HISTORY: He has a history of anxiety and depression. History of psychotropic medications in the past. SOCIAL HISTORY: He is a 68-year-old male patient from [facility], financially sustained through [facility]. MENTAL STATUS EXAMINATION: He is alert and oriented to person and place. Mood is anxious. Affect is congruent. Thought process, disorganized. Thought content, linear. He has fair attention and concentration. Fair insight, judgment, and impulse control. DIAGNOSIS: 1. Major depressive disorder, recurrent, moderate without psychotic features. 2. Generalized anxiety disorder. 3. CVA. 4. Obesity. 5. Diabetes. 6. Psychosocial stressors are moderate. I ASSESSED THE PATIENT. PROVIDED HIM WITH: 7. Reality orientation, focused on improving cognitive level of function. . 8. Supportive psychotherapy, which is focused on identifying positive emotions of stress, helping him tolerate a wider range of affect, addressing his feelings of helplessness, depression, anxiety, positive thought content regarding his family relationships in session the patient remains depressed and anxious. PLAN: Plan is to maintain medication compliance with positive coping skills and stabilizing the thoughts. Behavioral psychotherapy provided for this patient is 45 minutes. This clinician has reviewed the patient's chart and discussed treatment with treatment team. Tess Simon PsyD. DR: MACKENZIE JOB#: [id number] CC:
[2019-07-12] MEDS: NovoLOG Insulin Flexpen SUBQ SCH ×4 (06:23→23:06)
[2019-07-12 07:18] LABS: HEMATOCRIT 22.1 % (42.0-52.0); HEMOGLOBIN 7.5 G/DL (14.2-18.0); MEAN CORPUSCULAR VOLUME 90 FL (80-99); PLATELET COUNT 189 K/UL (150-450); RED BLOOD COUNT 2.45 M/UL (4.70-6.10); RED CELL DISTRIBUTION WIDTH 12.7 % (11.6-14.8)
[2019-07-12 07:55] LABS: ALANINE AMINOTRANSFERASE 39 U/L (12-78); ALBUMIN 2.8 G/DL (3.4-5.0); ALBUMIN/GLOBULIN RATIO 0.7 (1.0-2.7); ALKALINE PHOSPHATASE 69 U/L (46-116); ANION GAP 7 mmol/L (5-15); ASPARTATE AMINO TRANSFERASE 30 U/L (15-37); BILIRUBIN,TOTAL 0.3 MG/DL (0.2-1.0); BLOOD UREA NITROGEN 27 mg/dL (7-18); CALCIUM 8.5 MG/DL (8.5-10.1); CARBON DIOXIDE 29 MMOL/L (21-32); CHLORIDE 107 MMOL/L (98-107); CREATININE 1.5 MG/DL (0.55-1.30); PHOSPHORUS 3.1 MG/DL (2.5-4.9); POTASSIUM 4.3 MMOL/L (3.5-5.1); SODIUM 143 MMOL/L (136-145)
--- NOTE | 2019-07-12 08:43 | Nephrology Progress Note ---
Assessment/Plan Problem List: (1) Renal failure (ARF), acute on chronic (2) Dehydration (3) Gastrointestinal hemorrhage (4) Diabetes mellitus (5) Anemia (6) Electrolyte imbalance Assessment Upper GI bleed and coffee-ground emesis etiology unclear Acute on chronic renal failure Dehydration Electrolyte imbalance. Hyponatremia Anemia worsened since yesterday Obesity Diabetes and history of diabetic nephropathy significant elevation of hemoglobin A1c Plan Transfusion done yesterday Renal parameters improved N.p.o. IV Protonix IV hydration Keep the blood sugar in check with sliding scale insulin Urine studies Monitor renal parameters Keep the blood pressure and blood sugar in check Anemia work-up GI evaluation Subjective ROS Limited/Unobtainable: No Constitutional: Reports: malaise Objective Objective Last 24 Hour Vital Signs Date Time Temp Pulse Resp B/P (MAP) Pulse Ox O2 Delivery O2 Flow Rate FiO2 07/12/19 07:50 84 20 95 Room Air 21 07/12/19 04:00 97.1 66 19 120/67 (84) 98 07/12/19 04:00 65 07/12/19 00:00 97.4 63 18 108/63 (78) 98 07/12/19 00:00 69 07/11/19 21:00 Room Air 07/11/19 20:00 67 07/11/19 20:00 97.2 67 19 126/69 (88) 93 07/11/19 19:47 68 20 96 Room Air 21 07/11/19 16:00 81 07/11/19 16:00 96.4 75 19 128/64 (85) 99 07/11/19 12:43 67 18 99 07/11/19 12:42 73 18 99 07/11/19 12:20 97.5 71 15 119/70 100 Room Air 07/11/19 12:10 72 12 106/77 100 Room Air 07/11/19 12:00 67 14 112/62 100 Nasal Cannula 3 07/11/19 11:55 67 14 112/72 100 Nasal Cannula 3 07/11/19 11:51 97.8 66 12 112/67 100 Nasal Cannula 3 07/11/19 09:00 Room Air Intake and Output 07/11/19 07/12/19 19:00 07:00 Intake Total 1440 ml 750 ml Output Total 1500 ml Balance -60 ml 750 ml Intake Oral 140 ml IV Total 1270 ml 750 ml Blood Product 30 ml Output Urine Total 1500 ml # Voids 3 # Bowel Movements 3 1 Current Medications Medications (Trade) Dose Ordered Sig/Jayden Route PRN Reason Start Time Stop Time Status Last Admin Dose Admin Acetaminophen (Tylenol) 650 mg Q4H PRN ORAL Mild Pain/Temp > 100.5 07/09/19 18:15 08/08/19 18:14 Albuterol/ Ipratropium (Albuterol/ Ipratropium) 3 ml Q4H PRN HHN Shortness of Breath 07/09/19 20:00 07/14/19 19:59 Atorvastatin Calcium (Lipitor) 10 mg BEDTIME ORAL 07/09/19 21:00 08/08/19 20:59 07/11/19 21:00 Bisacodyl (Dulcolax) 10 mg DAILY ORAL 07/10/19 09:00 08/09/19 08:59 07/10/19 08:42 Dextrose (Dextrose 50%) 25 ml Q30M PRN IV Hypoglycemia 07/09/19 20:00 08/08/19 19:59 Dextrose (Dextrose 50%) 50 ml Q30M PRN IV Hypoglycemia 07/09/19 20:00 08/08/19 19:59 Docusate Sodium (Colace) 100 mg THREE TIMES A DAY ORAL 07/10/19 09:00 08/09/19 08:59 07/11/19 17:47 Escitalopram Oxalate (Lexapro) 10 mg DAILY ORAL 07/10/19 09:00 08/09/19 08:59 07/10/19 08:42 Gabapentin (Neurontin) 400 mg THREE TIMES A DAY ORAL 07/10/19 09:00 08/09/19 08:59 07/11/19 17:47 Hydralazine HCl (Apresoline) 25 mg Q4H PRN ORAL bp over 160 syst 07/09/19 20:15 08/08/19 20:14 Insulin Aspart (NovoLOG) BEFORE MEALS AND HS SUBQ 07/09/19 21:00 08/08/19 20:59 07/12/19 06:23 Ondansetron HCl (Zofran) 4 mg Q6H PRN ORAL Nausea & Vomiting 07/09/19 18:15 08/08/19 18:14 Pantoprazole (Protonix) 40 mg EVERY 12 HOURS IVP 07/09/19 21:00 08/08/19 20:59 07/11/19 21:00 Risperidone (RisperDAL) 2 mg DAILY ORAL 07/10/19 09:00 08/24/19 08:59 07/10/19 08:42 Sennosides (Senokot) 8.6 mg Q6H PRN ORAL Constipation 07/09/19 20:00 08/08/19 19:59 Sodium Chloride 1,000 ml @ 75 mls/hr [id number] IV 07/09/19 20:15 08/08/19 20:14 07/12/19 02:20 Sodium Phosphate (Fleet's Sodium Phosl Enema) 133 ml DAILY RECTAL 07/10/19 09:00 08/09/19 08:59 07/11/19 08:19 Sodium Phosphate (Fleet's Sodium Phosl Enema) 133 ml ONCE RECTAL 07/12/19 09:00 07/12/19 10:00 Tamsulosin HCl (Flomax) 0.4 mg QHS ORAL 07/09/19 21:00 08/08/19 20:59 07/11/19 21:00 Temazepam (Restoril) 15 mg BEDTIME PRN ORAL Insomnia 07/09/19 18:15 07/16/19 18:14 Laboratory Tests 07/12/19 06:32: White Blood Count 5.0, Red Blood Count 2.45L, Hemoglobin 7.5L, Hematocrit 22.1L , Mean Corpuscular Volume 90, Mean Corpuscular Hemoglobin 30.6, Mean Corpuscular Hemoglobin Concent 34.0, Red Cell Distribution Width 12.7, Platelet Count 189, Mean Platelet Volume 5.3L, Neutrophils (%) (Auto) , Lymphocytes (%) ( Auto) , Monocytes (%) (Auto) , Eosinophils (%) (Auto) , Basophils (%) (Auto) , Neutrophils % (Manual) [Pending], Lymphocytes % (Manual) [Pending], Platelet Estimate [Pending], Platelet Morphology [Pending], Sodium Level 143, Potassium Level 4.3, Chloride Level 107, Carbon Dioxide Level 29, Anion Gap 7, Blood Urea Nitrogen 27H, Creatinine 1.5H, Estimat Glomerular Filtration Rate 46.4, Glucose Level 260H, Uric Acid 7.6H, Calcium Level 8.5, Phosphorus Level 3.1, Magnesium Level 2.1, Total Bilirubin 0.3, Aspartate Amino Transf (AST/SGOT) 30, Alanine Aminotransferase (ALT/SGPT) 39, Alkaline Phosphatase 69, Total Protein 6.7, Albumin 2.8L, Globulin 3.9, Albumin/Globulin Ratio 0.7L Height (Feet): 5 Height (Inches): 9.00 Weight (Pounds): 224 General Appearance: no apparent distress Cardiovascular: normal rate Abdomen: soft Objective No change Dawson Doty MD Jul 12, 2019 08:43
--- NOTE | 2019-07-12 08:51 | General Progress Note ---
Assessment/Plan Problem List: (1) Diabetes mellitus ICD Codes: E11.9 - Type 2 diabetes mellitus without complications SNOMED: 35158444 (2) Morbid obesity ICD Codes: E66.01 - Morbid (severe) obesity due to excess calories SNOMED: 674447841 (3) Gastrointestinal hemorrhage ICD Codes: K92.2 - Gastrointestinal hemorrhage, unspecified SNOMED: 10134470 Qualifiers: Qualified Codes: K92.2 - Gastrointestinal hemorrhage, unspecified (4) Anemia ICD Codes: D64.9 - Anemia, unspecified SNOMED: 825560501 (5) Renal failure (ARF), acute on chronic ICD Codes: N17.9 - Acute kidney failure, unspecified; N18.9 - Chronic kidney disease, unspecified SNOMED: 997306140 Status: unchanged Assessment/Plan: pt diet gi/neph f/u cbc bmp am transfuse prn aru eval Subjective Constitutional: Reports: weakness Allergies: Coded Allergies: ASPIRIN (Verified Allergy, Unknown, 11/22/17) PENICILLINS (Verified Allergy, Unknown, 11/22/17) SULFAMETHOXAZOLE (Verified Allergy, Unknown, 11/22/17) TRIMETHOPRIM (Verified Allergy, Unknown, 11/22/17) All Systems: reviewed and negative except above Subjective sleepy calm in bed Objective Last 24 Hour Vital Signs Date Time Temp Pulse Resp B/P (MAP) Pulse Ox O2 Delivery O2 Flow Rate FiO2 07/12/19 07:50 84 20 95 Room Air 21 07/12/19 04:00 97.1 66 19 120/67 (84) 98 07/12/19 04:00 65 07/12/19 00:00 97.4 63 18 108/63 (78) 98 07/12/19 00:00 69 07/11/19 21:00 Room Air 07/11/19 20:00 67 07/11/19 20:00 97.2 67 19 126/69 (88) 93 07/11/19 19:47 68 20 96 Room Air 21 07/11/19 16:00 81 07/11/19 16:00 96.4 75 19 128/64 (85) 99 07/11/19 12:43 67 18 99 07/11/19 12:42 73 18 99 07/11/19 12:20 97.5 71 15 119/70 100 Room Air 07/11/19 12:10 72 12 106/77 100 Room Air 07/11/19 12:00 67 14 112/62 100 Nasal Cannula 3 07/11/19 11:55 67 14 112/72 100 Nasal Cannula 3 07/11/19 11:51 97.8 66 12 11267 100 Nasal Cannula 3 07/11/19 09:00 Room Air Intake and Output 07/11/19 07/12/19 19:00 07:00 Intake Total 1440 ml 750 ml Output Total 1500 ml Balance -60 ml 750 ml Intake Oral 140 ml IV Total 1270 ml 750 ml Blood Product 30 ml Output Urine Total 1500 ml # Voids 3 # Bowel Movements 3 1 Laboratory Tests 07/12/19 06:32: White Blood Count 5.0, Red Blood Count 2.45L, Hemoglobin 7.5L, Hematocrit 22.1L , Mean Corpuscular Volume 90, Mean Corpuscular Hemoglobin 30.6, Mean Corpuscular Hemoglobin Concent 34.0, Red Cell Distribution Width 12.7, Platelet Count 189, Mean Platelet Volume 5.3L, Neutrophils (%) (Auto) , Lymphocytes (%) ( Auto) , Monocytes (%) (Auto) , Eosinophils (%) (Auto) , Basophils (%) (Auto) , Neutrophils % (Manual) [Pending], Lymphocytes % (Manual) [Pending], Platelet Estimate [Pending], Platelet Morphology [Pending], Sodium Level 143, Potassium Level 4.3, Chloride Level 107, Carbon Dioxide Level 29, Anion Gap 7, Blood Urea Nitrogen 27H, Creatinine 1.5H, Estimat Glomerular Filtration Rate 46.4, Glucose Level 260H, Uric Acid 7.6H, Calcium Level 8.5, Phosphorus Level 3.1, Magnesium Level 2.1, Total Bilirubin 0.3, Aspartate Amino Transf (AST/SGOT) 30, Alanine Aminotransferase (ALT/SGPT) 39, Alkaline Phosphatase 69, Total Protein 6.7, Albumin 2.8L, Globulin 3.9, Albumin/Globulin Ratio 0.7L Height (Feet): 5 Height (Inches): 9.00 Weight (Pounds): 224 General Appearance: lethargic EENT: normal ENT inspection Neck: normal alignment Cardiovascular: normal peripheral pulses, normal rate, regular rhythm Respiratory/Chest: chest wall non-tender, lungs clear, normal breath sounds Abdomen: normal bowel sounds, non tender, soft Extremities: normal inspection Edema: no edema noted Arm (L), no edema noted Arm (R), no edema noted Leg (L), no edema noted Leg (R), no edema noted Pedal (L), no edema noted Pedal (R), no edema noted Generalized Neurologic: motor weakness Skin: normal pigmentation, warm/dry Joe Salinas DO Jul 12, 2019 08:51
[2019-07-12] MEDS: Docusate 100mg cap ORAL SCH ×3 (08:57→17:15)
[2019-07-12] MEDS: Bisacodyl EC 5mg tab ORAL SCH (08:58)
[2019-07-12] MEDS ORDERED: Fleet's Enema 133ml RECTAL SCH (09:00)
[2019-07-12] MEDS: Pantoprazole Inj IVP SCH ×2 (09:00→21:47)
[2019-07-12] MEDS: Fleet's Enema 133ml RECTAL SCH (10:00)
--- NOTE | 2019-07-12 11:43 | Pre-Procedure Note/Attestation ---
Pre-Procedure Note/Attestation Complete Prior to Procedure Planned Procedure: not applicable Procedure Narrative: colonoscopy Indications for Procedure Pre-Operative Diagnosis: gib Attestation I attest that I discussed the nature of the procedure; its benefits; risks and complications; and alternatives (and the risks and benefits of such alternatives ), prior to the procedure, with the patient (or the patient's legal safety representative). I attest that, if there was a reasonable possibility of needing a blood transfusion, the patient (or the patient's legal safety representative) was given the [facility] standardized written summary, pursuant to the Philip Layla Blood Safety Act ([place] Health and Safety Code # 1645, as amended). I attest that I re-evaluated the patient just prior to the surgery and that there has been no change in the patient's H&P, except as documented below: Shin Browne MD Jul 12, 2019 11:43
[2019-07-12] MEDS ORDERED: Propofol 200mg/20ml IV ONE (12:00)
[2019-07-12] MEDS ORDERED: Lidocaine 1% MPF 10mg/ml 5ml ONE (12:00)
[2019-07-12] MEDS ORDERED: NS 500ML IVPB ONE (12:00)
--- NOTE | 2019-07-12 12:01 | Anethesia Preoperative Eval ---
Anesthesia Pre-op PMH/ROS General Date of Evaluation: Jul 12, 2019 Time of Evaluation: 12:00 Anesthesiologist: Hyun Ruiz CRNA ASA Score: ASA 3 Mallampati Score Class I : Soft palate, uvula, fauces, pillars visible Class II: Soft palate, uvula, fauces visible Class III: Soft palate, base of uvula visible Class IV: Only hard plate visible Mallampati Classification: Class II Surgeon: Pavan Diagnosis: GI bleed Surgical Procedure: colonoscopy Social History: smoking Family History: no anesthesia problems Allergies: Coded Allergies: ASPIRIN (Verified Allergy, Unknown, 11/22/17) PENICILLINS (Verified Allergy, Unknown, 11/22/17) SULFAMETHOXAZOLE (Verified Allergy, Unknown, 11/22/17) TRIMETHOPRIM (Verified Allergy, Unknown, 11/22/17) Medications: see eMAR Patient NPO?: Yes NPO Date: Jul 12, 2019 NPO Time: 00:00 Past Medical History Cardiovascular: Reports: other - hypercholestoromia; Denies: HTN, CAD, ND, valve dz, arrhythmia Pulmonary: Reports: COPD, ALIDA; Denies: asthma, other Gastrointestinal/Genitourinary: Denies: GERD, CRI, ESRD, other Neurologic/Psychiatric: Reports: dementia, TIA; Denies: CVA, depression/anxiety, other Endocrine: Denies: DM, hypothyroidism, steroids, other HEENT: Denies: cataract (L), cataract (R), glaucoma, LUMBEE (L), LUMBEE (R), other Hematology/Immune: Reports: anemia; Denies: DVT, bleeding disorder, other Musculoskeletal/Integumentary: Denies: OA, RA, DJD, DDD, edema, other Other: obesity PMH Narrative: as noted above PSxH Narrative: see H & P Anesthesia Pre-op Phys. Exam Physician Exam Last Vital Signs Date Time Temp Pulse Resp B/P (MAP) Pulse Ox O2 Delivery O2 Flow Rate FiO2 07/12/19 09:00 Room Air 07/12/19 08:00 97.5 67 20 120/58 (78) 94 07/12/19 07:50 21 07/11/19 12:00 3 Constitutional: NAD Neurologic: other - alert & oriented x 3 Cardiovascular: RRR Respiratory: CTA Gastrointestinal: S/NT/ND Airway Exam Mallampati Score: Class III MO: full Neck: Short thick neck TMD: 3 FB ROM: full Teeth: missing Dentures: no upper, no lower Anesthesia Pre-op A/P Labs Hematology Test 07/12/19 06:32 White Blood Count 5.0 K/UL (4.8-10.8) Red Blood Count 2.45 M/UL (4.70-6.10) L Hemoglobin 7.5 G/DL (14.2-18.0) L Hematocrit 22.1 % (42.0-52.0) L Mean Corpuscular Volume 90 FL (80-99) Mean Corpuscular Hemoglobin 30.6 PG (27.0-31.0) Mean Corpuscular Hemoglobin Concent 34.0 G/DL (32.0-36.0) Red Cell Distribution Width 12.7 % (11.6-14.8) Platelet Count 189 K/UL (150-450) Mean Platelet Volume 5.3 FL (6.5-10.1) L Neutrophils (%) (Auto) % (45.0-75.0) Lymphocytes (%) (Auto) % (20.0-45.0) Monocytes (%) (Auto) % (1.0-10.0) Eosinophils (%) (Auto) % (0.0-3.0) Basophils (%) (Auto) % (0.0-2.0) Differential Total Cells Counted 100 Neutrophils % (Manual) 64 % (45-75) Lymphocytes % (Manual) 25 % (20-45) Monocytes % (Manual) 6 % (1-10) Eosinophils % (Manual) 5 % (0-3) H Basophils % (Manual) 0 % (0-2) Band Neutrophils 0 % (0-8) Nucleated Red Blood Cells 1 /100 WBC Platelet Estimate Adequate Platelet Morphology Normal Polychromasia 1+ Hypochromasia 1+ Chemistry Test 07/12/19 06:32 Sodium Level 143 MMOL/L (136-145) Potassium Level 4.3 MMOL/L (3.5-5.1) Chloride Level 107 MMOL/L (98-107) Carbon Dioxide Level 29 MMOL/L (21-32) Anion Gap 7 mmol/L (5-15) Blood Urea Nitrogen 27 mg/dL (7-18) H Creatinine 1.5 MG/DL (0.55-1.30) H Estimat Glomerular Filtration Rate 46.4 mL/min (>60) Glucose Level 260 MG/DL (74-106) H Uric Acid 7.6 MG/DL (2.6-7.2) H Calcium Level 8.5 MG/DL (8.5-10.1) Phosphorus Level 3.1 MG/DL (2.5-4.9) Magnesium Level 2.1 MG/DL (1.8-2.4) Total Bilirubin 0.3 MG/DL (0.2-1.0) Aspartate Amino Transf (AST/SGOT) 30 U/L (15-37) Alanine Aminotransferase (ALT/SGPT) 39 U/L (12-78) Alkaline Phosphatase 69 U/L (46-116) Total Protein 6.7 G/DL (6.4-8.2) Albumin 2.8 G/DL (3.4-5.0) L Globulin 3.9 g/dL Albumin/Globulin Ratio 0.7 (1.0-2.7) L Risk Assessment & Plan Assessment: ASA 3, ok to proceed Plan: MAC Status Change Before Surgery: No Pre-Antibiotics Given Within 1 Hr of Incision: Hyun Winn CRNA Jul 12, 2019 12:01
--- NOTE | 2019-07-12 12:23 | Immediate Post-Op Evaluation ---
Immediate Post-Op Evalulation Immediate Post-Op Evalulation Procedure: colonoscopy w/bx Date of Evaluation: Jul 12, 2019 Time of Evaluation: 12:45 IV Fluids: 0.9 NS 200 ml Urinary Output: 300 ml Blood Pressure Systolic: 117 Blood Pressure Diastolic: 62 Pulse Rate: 63 Respiratory Rate: 12 O2 Sat by Pulse Oximetry: 100 Temperature (Fahrenheit): 97.9 Pain Score (1-10): 0 Nausea: No Vomiting: No Complications none Patient Status: awake, patent Hydration Status: adequate Given Within 1 Hr of Incision: Hyun Winn CRNA Jul 12, 2019 12:23
--- NOTE | 2019-07-12 12:24 | Surgery Progress Note ---
Surgery Progress Note Subjective Additional Comments labs noted GI scope today will await results no active bleeding noted Objective Last 24 Hour Vital Signs Date Time Temp Pulse Resp B/P (MAP) Pulse Ox O2 Delivery O2 Flow Rate FiO2 07/12/19 09:00 Room Air 07/12/19 08:00 97.5 67 20 120/58 (78) 94 07/12/19 08:00 75 07/12/19 07:50 84 20 95 Room Air 21 07/12/19 04:00 97.1 66 19 120/67 (84) 98 07/12/19 04:00 65 07/12/19 00:00 97.4 63 18 108/63 (78) 98 07/12/19 00:00 69 07/11/19 21:00 Room Air 07/11/19 20:00 67 07/11/19 20:00 97.2 67 19 126/69 (88) 93 07/11/19 19:47 68 20 96 Room Air 21 07/11/19 16:00 81 07/11/19 16:00 96.4 75 19 128/64 (85) 99 07/11/19 12:43 67 18 99 07/11/19 12:42 73 18 99 I&O Intake and Output 07/11/19 07/12/19 19:00 07:00 Intake Total 1440 ml 750 ml Output Total 1500 ml Balance -60 ml 750 ml Intake Oral 140 ml IV Total 1270 ml 750 ml Blood Product 30 ml Output Urine Total 1500 ml # Voids 3 # Bowel Movements 3 1 Cardiovascular: RSR Respiratory: clear Abdomen: soft, non-tender, present bowel sounds Extremities: no cyanosis Laboratory Tests Test 07/12/19 06:32 White Blood Count 5.0 K/UL (4.8-10.8) Red Blood Count 2.45 M/UL (4.70-6.10) L Hemoglobin 7.5 G/DL (14.2-18.0) L Hematocrit 22.1 % (42.0-52.0) L Mean Corpuscular Volume 90 FL (80-99) Mean Corpuscular Hemoglobin 30.6 PG (27.0-31.0) Mean Corpuscular Hemoglobin Concent 34.0 G/DL (32.0-36.0) Red Cell Distribution Width 12.7 % (11.6-14.8) Platelet Count 189 K/UL (150-450) Mean Platelet Volume 5.3 FL (6.5-10.1) L Neutrophils (%) (Auto) % (45.0-75.0) Lymphocytes (%) (Auto) % (20.0-45.0) Monocytes (%) (Auto) % (1.0-10.0) Eosinophils (%) (Auto) % (0.0-3.0) Basophils (%) (Auto) % (0.0-2.0) Differential Total Cells Counted 100 Neutrophils % (Manual) 64 % (45-75) Lymphocytes % (Manual) 25 % (20-45) Monocytes % (Manual) 6 % (1-10) Eosinophils % (Manual) 5 % (0-3) H Basophils % (Manual) 0 % (0-2) Band Neutrophils 0 % (0-8) Nucleated Red Blood Cells 1 /100 WBC Platelet Estimate Adequate Platelet Morphology Normal Polychromasia 1+ Hypochromasia 1+ Sodium Level 143 MMOL/L (136-145) Potassium Level 4.3 MMOL/L (3.5-5.1) Chloride Level 107 MMOL/L (98-107) Carbon Dioxide Level 29 MMOL/L (21-32) Anion Gap 7 mmol/L (5-15) Blood Urea Nitrogen 27 mg/dL (7-18) H Creatinine 1.5 MG/DL (0.55-1.30) H Estimat Glomerular Filtration Rate 46.4 mL/min (>60) Glucose Level 260 MG/DL (74-106) H Uric Acid 7.6 MG/DL (2.6-7.2) H Calcium Level 8.5 MG/DL (8.5-10.1) Phosphorus Level 3.1 MG/DL (2.5-4.9) Magnesium Level 2.1 MG/DL (1.8-2.4) Total Bilirubin 0.3 MG/DL (0.2-1.0) Aspartate Amino Transf (AST/SGOT) 30 U/L (15-37) Alanine Aminotransferase (ALT/SGPT) 39 U/L (12-78) Alkaline Phosphatase 69 U/L (46-116) Total Protein 6.7 G/DL (6.4-8.2) Albumin 2.8 G/DL (3.4-5.0) L Globulin 3.9 g/dL Albumin/Globulin Ratio 0.7 (1.0-2.7) L Plan Problems: (1) Decubitus skin ulcer Assessment & Plan: Patient presented on admission with full thickness stage 4 pressure injury L buttocks (L)1.1cm x (W)1.5cm x (D)0.3cm. Base of wound is sapphire and moist. Borders are macerated .Surrounding non-blanching erythema without induration. Pt complained of pain when minimally palpated. Base of scrotum is erythematous with small area of shearing noted. Medial boggy with non-blanching erythema. Pt yells when minimally palpated. (L) 5.5cm x (W)5cm. Historical scar L heel. L heel is boggy but blanchable. Tx.Plan: Cleanse L buttocks with Saline. Apply TheraHoney. Apply Moisture Barrier Paste periwound. Cover with Optifoam Drsg Daily and prn. Apply Moisture Barrier Paste to scrotum with each Incontinence care. Apply Cavilon Skin Barrier to both heels. Cover each heel with Optifoam drsg. Change every 7 days and prn. Reposition at least every 2hours or as tolerated. Off-load heels with pillow. APM/IRIS Mattress overlay. (2) Gastrointestinal hemorrhage Assessment & Plan: Patient with coffee-ground emesis possible GI bleed severe anemia requiring transfusion Currently no active bleeding noted Agree with GI recommend endoscopy/colonoscopy for evaluation PPI N.p.o. IV fluids Trend labs We will follow with recommendations as work-up completed thank you for let me participate in patient's care There is a small left inguinal hernia which contains only fat. There are colonic diverticula. There is considerable retained stool within the proximal sigmoid colon. There is no evidence of acute diverticulitis. The appendix is normal. No small bowel distention. No free or loculated intraperitoneal gas or fluid is evident. The stomach is mildly distended with gas. No downstream obstructive lesion is demonstrated, however. The duodenum and distal esophagus are unremarkable. Lack of IV contrast limits assessment of solid organs. The liver is grossly unremarkable. The gallbladder contains gallstones. No biliary ductal dilatation. The pancreas is unremarkable. The spleen demonstrates an accessory splenule, is otherwise unremarkable. The adrenals are unremarkable. The kidneys demonstrate bilateral nonspecific perinephric fat stranding. No definite focal abnormality. No hydronephrosis or hydroureter or renal or ureteral calculi demonstrated. The kidneys are somewhat atrophic. The bladder is mildly distended. No pelvic mass demonstrated. There are some prominent iliac chain nodes bilaterally, largest on the left measuring up to 19 mm long axis dimension. There are also prominent retroperitoneal nodes, largest measuring 2.4 cm long axis dimension, 1.1 cm short axis dimension. No pelvic mass. 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 There is considerable heterotopic ossification of the left hip region. Some surgical scarring is seen in the left hip region soft tissues. There are degenerative changes of the lumbar spine. The included lung bases demonstrate posterior dependent atelectatic changes. Impression: Limited assessment of the GI tract, due to lack of enteric contrast demonstration Mild gastric distention without evidence of downstream obstructive lesion. No acute process otherwise. Cholelithiasis Mildly distended bladder Colonic diverticulosis. No evidence of diverticulitis Nonspecific bilateral perinephric fat stranding Borderline bilateral iliac and retroperitoneal lymphadenopathy, of uncertain significance. Could be baseline for this patient versus reactive, less likely indicative of metastatic neoplasm or lymphoproliferative disorder (3) Morbid obesity Good Love Jul 12, 2019 12:24
--- NOTE | 2019-07-12 12:38 | Endoscopy Procedure Note ---
Endoscopy Procedure Note General Indication for Procedure: gib Procedures Performed: colonoscopy Operative Findings/Diagnosis: diverticulosis Specimen: none Pt Tolerated Procedure Well: Yes Estimated Blood Loss: none Anesthesia Anesthesiologist: loraine Anesthesia: MAC Inserted Devices Implant(s) used?: No Quality Quality of Bowel Preparation: Fair GI Core Measures 50 yrs or older w/o bx or poly: Not Applicable 10yrs. F/U recommended: Not Applicable Shin Browne MD Jul 12, 2019 12:38
--- NOTE | 2019-07-12 13:50 | 48 Hour Post Anesthesia Eval ---
Post Anesthesia Evaluation Procedure: colonoscopy w/bx Date of Evaluation: Jul 12, 2019 Time of Evaluation: 13:49 Blood Pressure Systolic: 123 0: 62 Pulse Rate: 72 Respiratory Rate: 14 Temperature (Fahrenheit): 97.3 O2 Sat by Pulse Oximetry: 99 Airway: patent Nausea: No Vomiting: No Pain Intensity: 0 Hydration Status: adequate Cardiopulmonary Status: stable Mental Status/LOC: patient returned to baseline Follow-up Care/Observations: per hospitalist Post-Anesthesia Complications: none Follow-up care needed: N/A Hyun Ruiz CRNA Jul 12, 2019 13:50
--- NOTE | 2019-07-12 16:15 | Procedure Note ---
DATE OF PROCEDURE: 07/12/2019 SURGEON: Shin Browne M.D. REFERRING PHYSICIAN: Joe Salinas D.O. PROCEDURE: Colonoscopy. ANESTHESIA: Per Hyun PETERS. INSTRUMENT: Olympus adult flexible colonoscope. INDICATION: GI bleeding. REASON FOR PROCEDURE: The procedure, risks, benefits, and possible consequences, including hemorrhage, aspiration, perforation and infection, and alternative treatments, were explained to the patient/legal guardian by Dr. Shin Browne and the patient/legal guardian understood and accepted these risks. PROCEDURE IN DETAIL: After informed consent was obtained and the patient was adequately sedated, first rectal exam was performed, which was normal. The patient has a very weak rectal tone, small hemorrhoids on the palpation. Then, the scope was advanced from the rectum into the cecum documented by appendix orifice, ileocecal valve, and right upper quadrant palpation. Quality of prep was fair. The patient has some scattered diverticulosis in the left colon. No obvious mass, polyp, or any pathology was seen. No evidence of any active lower GI bleeding at this time. Retroflexion of rectum showed evidence of internal hemorrhoids. SUMMARY OF FINDINGS: 1. Weak rectal tone. 2. Internal hemorrhoids. 3. Fair colonic prep. 4. Diverticulosis. 5. No active bleeding at this time. RECOMMENDATIONS: 1. Resume diet. 2. Follow labs. 3. Discharge planning per primary team. I want to thank Dr. Joe Salinas for this kind referral. Shin Browne M.D. DR: MADDIE JOB#: [id number] CC:
[2019-07-12] MEDS: Tamsulosin 0.4mg cap ORAL SCH (21:47)
[2019-07-13] VITALS (25 sets, daily range): BP systolic 82–112; BP diastolic 22–61
[2019-07-13] MEDS ORDERED: Pantoprazole 80 MG in NS 250 ML IV SCH (03:30)
[2019-07-13] MEDS ORDERED: Albuterol/Ipratropium 3ml neb HHN PRN (04:00)
[2019-07-13] MEDS: Pantoprazole 80 MG in NS 250 ML IV SCH ×2 (04:00→14:47)
[2019-07-13] MEDS ORDERED: Acetaminophen 500mg (ES) tab ORAL PRN (04:15)
[2019-07-13] MEDS ORDERED: HydrALAZINE 25mg tab ORAL PRN (04:15)
[2019-07-13] MEDS ORDERED: Sennosides 8.6mg tab ORAL PRN (04:15)
[2019-07-13] MEDS: NovoLOG Insulin Flexpen SUBQ SCH ×4 (06:28→21:35)
[2019-07-13 06:44] LABS: HEMATOCRIT 21.2 % (42.0-52.0); HEMOGLOBIN 7.1 G/DL (14.2-18.0); MEAN CORPUSCULAR VOLUME 90 FL (80-99); PLATELET COUNT 240 K/UL (150-450); RED BLOOD COUNT 2.36 M/UL (4.70-6.10); RED CELL DISTRIBUTION WIDTH 13.2 % (11.6-14.8)
[2019-07-13 06:51] LABS: ANION GAP 8 mmol/L (5-15); BLOOD UREA NITROGEN 22 mg/dL (7-18); CARBON DIOXIDE 26 MMOL/L (21-32); CHLORIDE 109 MMOL/L (98-107); CREATININE 1.7 MG/DL (0.55-1.30); POTASSIUM 4.4 MMOL/L (3.5-5.1); SODIUM 143 MMOL/L (136-145)
[2019-07-13 09:29] LABS: ALANINE AMINOTRANSFERASE 35 U/L (12-78); ALBUMIN 2.6 G/DL (3.4-5.0); ALKALINE PHOSPHATASE 72 U/L (46-116); ASPARTATE AMINO TRANSFERASE 26 U/L (15-37); BILIRUBIN,TOTAL 0.2 MG/DL (0.2-1.0); PHOSPHORUS 4.1 MG/DL (2.5-4.9)
[2019-07-13 09:38] LABS: BILIRUBIN,DIRECT < 0.1 MG/DL (0.0-0.3)
--- NOTE | 2019-07-13 09:44 | Nephrology Progress Note ---
Assessment/Plan Problem List: (1) Renal failure (ARF), acute on chronic (2) Dehydration (3) Gastrointestinal hemorrhage (4) Diabetes mellitus (5) Anemia (6) Electrolyte imbalance Assessment Upper GI bleed and coffee-ground emesis etiology unclear Acute on chronic renal failure Dehydration Electrolyte imbalance. Hyponatremia Anemia worsened since yesterday Obesity Diabetes and history of diabetic nephropathy significant elevation of hemoglobin A1c Plan Endoscopy results noted transfusion done July 10 Renal parameters improved IV hydration Keep the blood sugar in check with sliding scale insulin Urine studies Monitor renal parameters Keep the blood pressure and blood sugar in check Anemia work-up Continue per GI advice Subjective ROS Limited/Unobtainable: No Constitutional: Reports: malaise Objective Objective Last 24 Hour Vital Signs Date Time Temp Pulse Resp B/P (MAP) Pulse Ox O2 Delivery O2 Flow Rate FiO2 07/13/19 07:00 103 22 105/54 (71) 98 07/13/19 06:00 110 21 92/55 (67) 100 07/13/19 05:00 120 21 102/57 (72) 100 07/13/19 04:00 126 07/13/19 04:00 Simple Mask 7.0 07/13/19 04:00 98.0 121 24 82/54 (63) 100 07/13/19 03:10 138 20 98 07/13/19 00:00 97.6 99 18 110/61 (77) 96 07/13/19 00:00 84 07/12/19 21:00 Room Air 07/12/19 20:00 97.9 92 18 141/58 (85) 96 07/12/19 16:00 96 07/12/19 16:00 98.1 86 18 130/63 (85) 95 07/12/19 13:50 72 14 99 07/12/19 13:05 97.3 72 14 123/62 99 Room Air 07/12/19 12:55 69 24 132/64 100 Simple Mask 6 07/12/19 12:49 63 12 100 07/12/19 12:45 65 20 124/65 100 Simple Mask 6 07/12/19 12:40 65 20 117/62 100 Simple Mask 6 07/12/19 12:37 97.9 68 20 120/65 100 Simple Mask 6 07/12/19 12:00 71 Intake and Output 07/12/19 07/13/19 19:00 07:00 Intake Total 230 ml 978 ml Output Total 330 ml Balance 230 ml 648 ml IV Total 230 ml 978 ml Output Urine Total 330 ml # Voids 6 # Bowel Movements 7 1 Current Medications Medications (Trade) Dose Ordered Sig/Jayden Route PRN Reason Start Time Stop Time Status Last Admin Dose Admin Acetaminophen (Tylenol) 650 mg Q4H PRN ORAL Mild Pain/Temp > 100.5 07/13/19 04:15 08/08/19 04:14 Albuterol/ Ipratropium (Albuterol/ Ipratropium) 3 ml Q4H PRN HHN Shortness of Breath 07/13/19 04:00 07/14/19 19:59 Atorvastatin Calcium (Lipitor) 10 mg BEDTIME ORAL 07/13/19 21:00 08/08/19 20:59 Bisacodyl (Dulcolax) 10 mg DAILY ORAL 07/13/19 09:00 08/09/19 08:59 Dextrose (Dextrose 50%) 25 ml Q30M PRN IV Hypoglycemia 07/13/19 04:00 08/08/19 19:59 Dextrose (Dextrose 50%) 50 ml Q30M PRN IV Hypoglycemia 07/13/19 04:00 08/08/19 19:59 Docusate Sodium (Colace) 100 mg THREE TIMES A DAY ORAL 07/13/19 09:00 08/09/19 08:59 Escitalopram Oxalate (Lexapro) 10 mg DAILY ORAL 07/13/19 09:00 08/09/19 08:59 Gabapentin (Neurontin) 400 mg THREE TIMES A DAY ORAL 07/13/19 09:00 08/09/19 08:59 Hydralazine HCl (Apresoline) 25 mg Q4H PRN ORAL bp over 160 syst 07/13/19 04:15 08/08/19 20:14 Insulin Aspart (NovoLOG) BEFORE MEALS AND HS SUBQ 07/13/19 06:30 08/08/19 20:59 07/13/19 06:28 Ondansetron HCl (Zofran) 4 mg Q6H PRN ORAL Nausea & Vomiting 07/13/19 04:00 08/08/19 03:59 Pantoprazole 80 mg/Sodium Chloride 250 ml @ 25 mls/hr Q10H IV 07/13/19 04:00 08/12/19 03:29 07/13/19 04:00 Risperidone (RisperDAL) 2 mg DAILY ORAL 07/13/19 09:00 08/24/19 08:59 Sennosides (Senokot) 8.6 mg Q6H PRN ORAL Constipation 07/13/19 04:15 08/08/19 04:14 Sodium Chloride 1,000 ml @ 75 mls/hr [id number] IV 07/13/19 04:00 08/08/19 20:14 07/13/19 04:00 Sodium Phosphate (Fleet's Sodium Phosl Enema) 133 ml DAILY RECTAL 07/13/19 09:00 08/09/19 08:59 Tamsulosin HCl (Flomax) 0.4 mg QHS ORAL 07/13/19 21:00 08/08/19 20:59 Temazepam (Restoril) 15 mg BEDTIME PRN ORAL Insomnia 07/13/19 21:00 07/16/19 18:14 Laboratory Tests 07/13/19 05:59: White Blood Count 7.0, Red Blood Count 2.36L, Hemoglobin 7.1L, Hematocrit 21.2L , Mean Corpuscular Volume 90, Mean Corpuscular Hemoglobin 30.2, Mean Corpuscular Hemoglobin Concent 33.6, Red Cell Distribution Width 13.2, Platelet Count 240, Mean Platelet Volume 5.3L, Neutrophils (%) (Auto) , Lymphocytes (%) ( Auto) , Monocytes (%) (Auto) , Eosinophils (%) (Auto) , Basophils (%) (Auto) , Differential Total Cells Counted 100, Neutrophils % (Manual) 71, Lymphocytes % ( Manual) 19L, Monocytes % (Manual) 10, Eosinophils % (Manual) 0, Basophils % ( Manual) 0, Band Neutrophils 0, Platelet Estimate Adequate, Platelet Morphology Normal, Hypochromasia 1+, Sodium Level 143, Potassium Level 4.4, Chloride Level 109H, Carbon Dioxide Level 26, Anion Gap 8, Blood Urea Nitrogen 22H, Creatinine 1.7H, Estimat Glomerular Filtration Rate 40.2, Glucose Level 451#H, Calcium Level 8.0L 07/13/19 08:55: Phosphorus Level 4.1, Magnesium Level 1.8, Total Bilirubin 0.2, Direct Bilirubin < 0.1, Aspartate Amino Transf (AST/SGOT) 26, Alanine Aminotransferase (ALT/SGPT) 35, Alkaline Phosphatase 72, Total Protein 5.6L, Albumin 2.6L Height (Feet): 5 Height (Inches): 9.00 Weight (Pounds): 224 General Appearance: no apparent distress Cardiovascular: tachycardia Respiratory/Chest: decreased breath sounds Abdomen: soft Objective No change Dawson Doty MD Jul 13, 2019 09:44
[2019-07-13] MEDS ORDERED: NS 275ml ONE (09:52)
--- NOTE | 2019-07-13 10:21 | General Progress Note ---
Assessment/Plan Problem List: (1) Diabetes mellitus ICD Codes: E11.9 - Type 2 diabetes mellitus without complications SNOMED: 65248876 (2) Morbid obesity ICD Codes: E66.01 - Morbid (severe) obesity due to excess calories SNOMED: 430973492 (3) Gastrointestinal hemorrhage ICD Codes: K92.2 - Gastrointestinal hemorrhage, unspecified SNOMED: 74990874 Qualifiers: Qualified Codes: K92.2 - Gastrointestinal hemorrhage, unspecified (4) Anemia ICD Codes: D64.9 - Anemia, unspecified SNOMED: 310612755 (5) Renal failure (ARF), acute on chronic ICD Codes: N17.9 - Acute kidney failure, unspecified; N18.9 - Chronic kidney disease, unspecified SNOMED: 917968612 (6) Hemoptysis ICD Codes: R04.2 - Hemoptysis SNOMED: 67981953 Status: unchanged Assessment/Plan: pt diet gi/neph f/u cbc bmp am transfuse prn aru eval Subjective Constitutional: Reports: weakness Allergies: Coded Allergies: ASPIRIN (Verified Allergy, Unknown, 11/22/17) PENICILLINS (Verified Allergy, Unknown, 11/22/17) SULFAMETHOXAZOLE (Verified Allergy, Unknown, 11/22/17) TRIMETHOPRIM (Verified Allergy, Unknown, 11/22/17) All Systems: reviewed and negative except above Subjective sleepy calm in bed Objective Last 24 Hour Vital Signs Date Time Temp Pulse Resp B/P (MAP) Pulse Ox O2 Delivery O2 Flow Rate FiO2 07/13/19 07:00 103 22 105/54 (71) 98 07/13/19 06:00 110 21 92/55 (67) 100 07/13/19 05:00 120 21 102/57 (72) 100 07/13/19 04:00 126 07/13/19 04:00 Simple Mask 7.0 07/13/19 04:00 98.0 121 24 82/54 (63) 100 07/13/19 03:10 138 20 98 07/13/19 00:00 97.6 99 18 110/61 (77) 96 07/13/19 00:00 84 07/12/19 21:00 Room Air 07/12/19 20:00 97.9 92 18 141/58 (85) 96 07/12/19 16:00 96 3/13/20 16:00 98.1 86 18 130/63 (85) 95 07/12/19 13:50 72 14 99 07/12/19 13:05 97.3 72 14 123/62 99 Room Air 07/12/19 12:55 69 24 132/64 100 Simple Mask 6 07/12/19 12:49 63 12 100 07/12/19 12:45 65 20 124/65 100 Simple Mask 6 07/12/19 12:40 65 20 117/62 100 Simple Mask 6 07/12/19 12:37 97.9 68 20 120/65 100 Simple Mask 6 07/12/19 12:00 71 Intake and Output 07/12/19 07/13/19 19:00 07:00 Intake Total 230 ml 978 ml Output Total 330 ml Balance 230 ml 648 ml IV Total 230 ml 978 ml Output Urine Total 330 ml # Voids 6 # Bowel Movements 7 1 Laboratory Tests 07/13/19 05:59: White Blood Count 7.0, Red Blood Count 2.36L, Hemoglobin 7.1L, Hematocrit 21.2L , Mean Corpuscular Volume 90, Mean Corpuscular Hemoglobin 30.2, Mean Corpuscular Hemoglobin Concent 33.6, Red Cell Distribution Width 13.2, Platelet Count 240, Mean Platelet Volume 5.3L, Neutrophils (%) (Auto) , Lymphocytes (%) ( Auto) , Monocytes (%) (Auto) , Eosinophils (%) (Auto) , Basophils (%) (Auto) , Differential Total Cells Counted 100, Neutrophils % (Manual) 71, Lymphocytes % ( Manual) 19L, Monocytes % (Manual) 10, Eosinophils % (Manual) 0, Basophils % ( Manual) 0, Band Neutrophils 0, Platelet Estimate Adequate, Platelet Morphology Normal, Hypochromasia 1+, Sodium Level 143, Potassium Level 4.4, Chloride Level 109H, Carbon Dioxide Level 26, Anion Gap 8, Blood Urea Nitrogen 22H, Creatinine 1.7H, Estimat Glomerular Filtration Rate 40.2, Glucose Level 451#H, Calcium Level 8.0L 07/13/19 08:55: Phosphorus Level 4.1, Magnesium Level 1.8, Total Bilirubin 0.2, Direct Bilirubin < 0.1, Aspartate Amino Transf (AST/SGOT) 26, Alanine Aminotransferase (ALT/SGPT) 35, Alkaline Phosphatase 72, Total Protein 5.6L, Albumin 2.6L Height (Feet): 5 Height (Inches): 9.00 Weight (Pounds): 224 General Appearance: lethargic EENT: normal ENT inspection Neck: normal alignment Cardiovascular: normal peripheral pulses, normal rate, regular rhythm Respiratory/Chest: chest wall non-tender, lungs clear, normal breath sounds Abdomen: normal bowel sounds, non tender, soft Extremities: normal inspection Edema: no edema noted Arm (L), no edema noted Arm (R), no edema noted Leg (L), no edema noted Leg (R), no edema noted Pedal (L), no edema noted Pedal (R), no edema noted Generalized Neurologic: motor weakness Skin: normal pigmentation, warm/dry Joe Salinas DO Jul 13, 2019 10:21
[2019-07-13] MEDS: Docusate 100mg cap ORAL SCH ×3 (10:30→17:27)
[2019-07-13] MEDS: Fleet's Enema 133ml RECTAL SCH (10:30)
[2019-07-13] MEDS: Bisacodyl EC 5mg tab ORAL SCH (10:30)
--- NOTE | 2019-07-13 12:52 | Surgery Progress Note ---
Surgery Progress Note Subjective Additional Comments bloody emesis and BM this AM transferred to ICU npo now becoming a bit symptomatic. transfuse 2 units labs in a few hrs ordered repeat Objective Last 24 Hour Vital Signs Date Time Temp Pulse Resp B/P (MAP) Pulse Ox O2 Delivery O2 Flow Rate FiO2 07/13/19 08:00 89 07/13/19 07:29 108 24 99 Nasal Cannula 2.0 28 07/13/19 07:00 103 22 105/54 (71) 98 07/13/19 06:00 110 21 92/55 (67) 100 07/13/19 05:00 120 21 102/57 (72) 100 07/13/19 04:00 126 07/13/19 04:00 Simple Mask 7.0 07/13/19 04:00 98.0 121 24 82/54 (63) 100 07/13/19 03:10 138 20 98 07/13/19 00:00 97.6 99 18 110/61 (77) 96 07/13/19 00:00 84 07/12/19 21:00 Room Air 07/12/19 20:00 97.9 92 18 141/58 (85) 96 07/12/19 16:00 96 07/12/19 16:00 98.1 86 18 130/63 (85) 95 07/12/19 13:50 72 14 99 07/12/19 13:05 97.3 72 14 123/62 99 Room Air 07/12/19 12:55 69 24 132/64 100 Simple Mask 6 I&O Intake and Output 07/12/19 07/13/19 19:00 07:00 Intake Total 230 ml 978 ml Output Total 330 ml Balance 230 ml 648 ml IV Total 230 ml 978 ml Output Urine Total 330 ml # Voids 6 # Bowel Movements 7 1 Laboratory Tests Test 07/13/19 05:59 07/13/19 08:55 White Blood Count 7.0 K/UL (4.8-10.8) Red Blood Count 2.36 M/UL (4.70-6.10) L Hemoglobin 7.1 G/DL (14.2-18.0) L Hematocrit 21.2 % (42.0-52.0) L Mean Corpuscular Volume 90 FL (80-99) Mean Corpuscular Hemoglobin 30.2 PG (27.0-31.0) Mean Corpuscular Hemoglobin Concent 33.6 G/DL (32.0-36.0) Red Cell Distribution Width 13.2 % (11.6-14.8) Platelet Count 240 K/UL (150-450) Mean Platelet Volume 5.3 FL (6.5-10.1) L Neutrophils (%) (Auto) % (45.0-75.0) Lymphocytes (%) (Auto) % (20.0-45.0) Monocytes (%) (Auto) % (1.0-10.0) Eosinophils (%) (Auto) % (0.0-3.0) Basophils (%) (Auto) % (0.0-2.0) Differential Total Cells Counted 100 Neutrophils % (Manual) 71 % (45-75) Lymphocytes % (Manual) 19 % (20-45) L Monocytes % (Manual) 10 % (1-10) Eosinophils % (Manual) 0 % (0-3) Basophils % (Manual) 0 % (0-2) Band Neutrophils 0 % (0-8) Platelet Estimate Adequate Platelet Morphology Normal Hypochromasia 1+ Sodium Level 143 MMOL/L (136-145) Potassium Level 4.4 MMOL/L (3.5-5.1) Chloride Level 109 MMOL/L (98-107) H Carbon Dioxide Level 26 MMOL/L (21-32) Anion Gap 8 mmol/L (5-15) Blood Urea Nitrogen 22 mg/dL (7-18) H Creatinine 1.7 MG/DL (0.55-1.30) H Estimat Glomerular Filtration Rate 40.2 mL/min (>60) Glucose Level 451 MG/DL (74-106) #H Calcium Level 8.0 MG/DL (8.5-10.1) L Phosphorus Level 4.1 MG/DL (2.5-4.9) Magnesium Level 1.8 MG/DL (1.8-2.4) Total Bilirubin 0.2 MG/DL (0.2-1.0) Direct Bilirubin < 0.1 MG/DL (0.0-0.3) Aspartate Amino Transf (AST/SGOT) 26 U/L (15-37) Alanine Aminotransferase (ALT/SGPT) 35 U/L (12-78) Alkaline Phosphatase 72 U/L (46-116) Total Protein 5.6 G/DL (6.4-8.2) L Albumin 2.6 G/DL (3.4-5.0) L Plan Problems: (1) Decubitus skin ulcer Assessment & Plan: Patient presented on admission with full thickness stage 4 pressure injury L buttocks (L)1.1cm x (W)1.5cm x (D)0.3cm. Base of wound is sapphire and moist. Borders are macerated .Surrounding non-blanching erythema without induration. Pt complained of pain when minimally palpated. Base of scrotum is erythematous with small area of shearing noted. Medial boggy with non-blanching erythema. Pt yells when minimally palpated. (L) 5.5cm x (W)5cm. Historical scar L heel. L heel is boggy but blanchable. Tx.Plan: Cleanse L buttocks with Saline. Apply TheraHoney. Apply Moisture Barrier Paste periwound. Cover with Optifoam Drsg Daily and prn. Apply Moisture Barrier Paste to scrotum with each Incontinence care. Apply Cavilon Skin Barrier to both heels. Cover each heel with Optifoam drsg. Change every 7 days and prn. Reposition at least every 2hours or as tolerated. Off-load heels with pillow. APM/IRIS Mattress overlay. (2) Gastrointestinal hemorrhage Assessment & Plan: Patient with coffee-ground emesis possible GI bleed severe anemia requiring transfusion Currently no active bleeding noted Agree with GI recommend endoscopy/colonoscopy for evaluation PPI N.p.o. IV fluids Trend labs We will follow with recommendations as work-up completed thank you for let me participate in patient's care There is a small left inguinal hernia which contains only fat. There are colonic diverticula. There is considerable retained stool within the proximal sigmoid colon. There is no evidence of acute diverticulitis. The appendix is normal. No small bowel distention. No free or loculated intraperitoneal gas or fluid is evident. The stomach is mildly distended with gas. No downstream obstructive lesion is demonstrated, however. The duodenum and distal esophagus are unremarkable. Lack of IV contrast limits assessment of solid organs. The liver is grossly unremarkable. The gallbladder contains gallstones. No biliary ductal dilatation. The pancreas is unremarkable. The spleen demonstrates an accessory splenule, is otherwise unremarkable. The adrenals are unremarkable. The kidneys demonstrate bilateral nonspecific perinephric fat stranding. No definite focal abnormality. No hydronephrosis or hydroureter or renal or ureteral calculi demonstrated. The kidneys are somewhat atrophic. The bladder is mildly distended. No pelvic mass demonstrated. There are some prominent iliac chain nodes bilaterally, largest on the left measuring up to 19 mm long axis dimension. There are also prominent retroperitoneal nodes, largest measuring 2.4 cm long axis dimension, 1.1 cm short axis dimension. No pelvic mass. 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 There is considerable heterotopic ossification of the left hip region. Some surgical scarring is seen in the left hip region soft tissues. There are degenerative changes of the lumbar spine. The included lung bases demonstrate posterior dependent atelectatic changes. Impression: Limited assessment of the GI tract, due to lack of enteric contrast demonstration Mild gastric distention without evidence of downstream obstructive lesion. No acute process otherwise. Cholelithiasis Mildly distended bladder Colonic diverticulosis. No evidence of diverticulitis Nonspecific bilateral perinephric fat stranding Borderline bilateral iliac and retroperitoneal lymphadenopathy, of uncertain significance. Could be baseline for this patient versus reactive, less likely indicative of metastatic neoplasm or lymphoproliferative disorder (3) Morbid obesity Good Love Jul 13, 2019 12:52
--- NOTE | 2019-07-13 17:52 | General Progress Note ---
Assessment/Plan Status: unchanged Assessment/Plan: Assessment - Recurrent GIB - Anemia - gastric ulcers - diverticulosis Recommendations - monitor CBC - keep NPO today - transfuse PRN - PPI Subjective Allergies: Coded Allergies: ASPIRIN (Verified Allergy, Unknown, 11/22/17) PENICILLINS (Verified Allergy, Unknown, 11/22/17) SULFAMETHOXAZOLE (Verified Allergy, Unknown, 11/22/17) TRIMETHOPRIM (Verified Allergy, Unknown, 11/22/17) Subjective above noted transferred to ICU overnight due to hematemesis stable vital signs d/w RN transfusion ordered Objective Last 24 Hour Vital Signs Date Time Temp Pulse Resp B/P (MAP) Pulse Ox O2 Delivery O2 Flow Rate FiO2 07/13/19 14:30 78 21 90/48 (62) 99 07/13/19 14:00 81 22 88/48 (61) 99 07/13/19 13:00 81 22 92/48 (63) 99 07/13/19 12:00 Simple Mask 7.0 07/13/19 12:00 80 07/13/19 12:00 98.0 81 22 91/47 (62) 100 07/13/19 11:00 91 22 91/52 (65) 99 07/13/19 10:00 96 16 108/49 (68) 95 07/13/19 09:00 102 19 101/56 (71) 94 07/13/19 08:00 Simple Mask 7.0 07/13/19 08:00 89 07/13/19 08:00 98.2 113 21 112/52 (72) 100 07/13/19 07:29 108 24 99 Nasal Cannula 2.0 28 07/13/19 07:00 103 22 105/54 (71) 98 07/13/19 06:00 110 21 92/55 (67) 100 07/13/19 05:00 120 21 102/57 (72) 100 07/13/19 04:00 126 07/13/19 04:00 Simple Mask 7.0 07/13/19 04:00 98.0 121 24 82/54 (63) 100 07/13/19 03:10 138 20 98 07/13/19 00:00 97.6 99 18 110/61 (77) 96 07/13/19 00:00 84 07/12/19 21:00 Room Air 07/12/19 20:00 97.9 92 18 141/58 (85) 96 Intake and Output 07/12/19 07/13/19 19:00 07:00 Intake Total 230 ml 978 ml Output Total 330 ml Balance 230 ml 648 ml IV Total 230 ml 978 ml Output Urine Total 330 ml # Voids 6 # Bowel Movements 7 1 Laboratory Tests 07/13/19 05:59: White Blood Count 7.0, Red Blood Count 2.36L, Hemoglobin 7.1L, Hematocrit 21.2L , Mean Corpuscular Volume 90, Mean Corpuscular Hemoglobin 30.2, Mean Corpuscular Hemoglobin Concent 33.6, Red Cell Distribution Width 13.2, Platelet Count 240, Mean Platelet Volume 5.3L, Neutrophils (%) (Auto) , Lymphocytes (%) ( Auto) , Monocytes (%) (Auto) , Eosinophils (%) (Auto) , Basophils (%) (Auto) , Differential Total Cells Counted 100, Neutrophils % (Manual) 71, Lymphocytes % ( Manual) 19L, Monocytes % (Manual) 10, Eosinophils % (Manual) 0, Basophils % ( Manual) 0, Band Neutrophils 0, Platelet Estimate Adequate, Platelet Morphology Normal, Hypochromasia 1+, Sodium Level 143, Potassium Level 4.4, Chloride Level 109H, Carbon Dioxide Level 26, Anion Gap 8, Blood Urea Nitrogen 22H, Creatinine 1.7H, Estimat Glomerular Filtration Rate 40.2, Glucose Level 451#H, Calcium Level 8.0L 07/13/19 08:55: Phosphorus Level 4.1, Magnesium Level 1.8, Total Bilirubin 0.2, Direct Bilirubin < 0.1, Aspartate Amino Transf (AST/SGOT) 26, Alanine Aminotransferase (ALT/SGPT) 35, Alkaline Phosphatase 72, Total Protein 5.6L, Albumin 2.6L Height (Feet): 5 Height (Inches): 9.00 Weight (Pounds): 239 Objective Obese WM NCAT supple CTA RR abd obese no edema Romario Finnegan MD Jul 13, 2019 17:52
[2019-07-13] MEDS: Tamsulosin 0.4mg cap ORAL SCH (21:29)
[2019-07-14] VITALS (35 sets, daily range): BP systolic 91–141; BP diastolic 39–69
[2019-07-14] MEDS: Pantoprazole 80 MG in NS 250 ML IV SCH ×3 (00:48→19:58)
[2019-07-14 01:20] LABS: HEMATOCRIT 20.4 % (42.0-52.0); HEMOGLOBIN 7.2 G/DL (14.2-18.0); MEAN CORPUSCULAR VOLUME 87 FL (80-99); PLATELET COUNT 234 K/UL (150-450); RED BLOOD COUNT 2.33 M/UL (4.70-6.10); RED CELL DISTRIBUTION WIDTH 12.1 % (11.6-14.8); WHITE BLOOD COUNT 8.5 K/UL (4.8-10.8)
[2019-07-14 06:39] LABS: HEMATOCRIT 19.3 % (42.0-52.0); MEAN CORPUSCULAR VOLUME 88 FL (80-99); PLATELET COUNT 212 K/UL (150-450); RED CELL DISTRIBUTION WIDTH 12.4 % (11.6-14.8); WHITE BLOOD COUNT 6.7 K/UL (4.8-10.8)
[2019-07-14 06:46] LABS: HEMOGLOBIN 6.8 G/DL (14.2-18.0)
[2019-07-14 06:47] LABS: ANION GAP 8 mmol/L (5-15); BLOOD UREA NITROGEN 36 mg/dL (7-18); CALCIUM 7.8 MG/DL (8.5-10.1); CARBON DIOXIDE 25 MMOL/L (21-32); CHLORIDE 108 MMOL/L (98-107); CREATININE 1.7 MG/DL (0.55-1.30); POTASSIUM 4.9 MMOL/L (3.5-5.1); SODIUM 141 MMOL/L (136-145)
[2019-07-14] MEDS: NovoLOG Insulin Flexpen SUBQ SCH ×4 (06:47→21:05)
[2019-07-14] MEDS: Bisacodyl EC 5mg tab ORAL SCH (08:36)
[2019-07-14] MEDS: Docusate 100mg cap ORAL SCH (08:37)
[2019-07-14] MEDS: Fleet's Enema 133ml RECTAL SCH (08:37)
[2019-07-14 09:47] LABS: ALANINE AMINOTRANSFERASE 31 U/L (12-78); ALBUMIN 2.2 G/DL (3.4-5.0); ALKALINE PHOSPHATASE 55 U/L (46-116); ASPARTATE AMINO TRANSFERASE 18 U/L (15-37); BILIRUBIN,DIRECT < 0.1 MG/DL (0.0-0.3); BILIRUBIN,TOTAL 0.2 MG/DL (0.2-1.0); PHOSPHORUS 3.9 MG/DL (2.5-4.9)
--- NOTE | 2019-07-14 10:06 | General Progress Note ---
Assessment/Plan Problem List: (1) Diabetes mellitus ICD Codes: E11.9 - Type 2 diabetes mellitus without complications SNOMED: 40787597 (2) Morbid obesity ICD Codes: E66.01 - Morbid (severe) obesity due to excess calories SNOMED: 699194674 (3) Gastrointestinal hemorrhage ICD Codes: K92.2 - Gastrointestinal hemorrhage, unspecified SNOMED: 63394922 Qualifiers: Qualified Codes: K92.2 - Gastrointestinal hemorrhage, unspecified (4) Anemia ICD Codes: D64.9 - Anemia, unspecified SNOMED: 183899627 (5) Renal failure (ARF), acute on chronic ICD Codes: N17.9 - Acute kidney failure, unspecified; N18.9 - Chronic kidney disease, unspecified SNOMED: 974023980 (6) Hemoptysis ICD Codes: R04.2 - Hemoptysis SNOMED: 16667509 Status: unchanged Assessment/Plan: pt diet gi/neph f/u cbc bmp am transfuse prn aru eval Subjective Constitutional: Reports: weakness Allergies: Coded Allergies: ASPIRIN (Verified Allergy, Unknown, 11/22/17) PENICILLINS (Verified Allergy, Unknown, 11/22/17) SULFAMETHOXAZOLE (Verified Allergy, Unknown, 11/22/17) TRIMETHOPRIM (Verified Allergy, Unknown, 11/22/17) All Systems: reviewed and negative except above Subjective sleepy calm in bed in icu Objective Last 24 Hour Vital Signs Date Time Temp Pulse Resp B/P (MAP) Pulse Ox O2 Delivery O2 Flow Rate FiO2 07/14/19 08:00 Nasal Cannula 3.0 07/14/19 08:00 84 15 118/49 (72) 100 07/14/19 07:00 80 17 124/55 (78) 100 07/14/19 06:00 85 18 108/47 (67) 100 07/14/19 05:00 88 14 128/51 (76) 100 07/14/19 04:00 77 07/14/19 04:00 Simple Mask 7.0 07/14/19 04:00 98.4 73 17 91/39 (56) 100 07/14/19 03:00 75 16 101/44 (63) 100 07/14/19 02:00 79 17 94/43 (60) 100 07/14/19 01:00 84 18 102/44 (63) 100 07/14/19 00:00 98.6 90 18 110/46 (67) 100 07/14/19 00:00 90 07/14/19 00:00 Simple Mask 7.0 07/13/19 23:00 94 106/49 (68) 100 07/13/19 22:00 102 22 109/49 (69) 100 07/13/19 21:30 104 23 98/46 (63) 100 07/13/19 21:00 108 17 104/45 (64) 100 07/13/19 20:30 110 24 108/46 (66) 100 07/13/19 20:00 112 07/13/19 20:00 Simple Mask 7.0 07/13/19 20:00 98.4 111 23 94/43 (60) 100 07/13/19 19:00 112 21 86/41 (56) 100 07/13/19 18:00 108 24 85/22 (43) 100 07/13/19 17:00 81 21 94/45 (61) 99 07/13/19 16:00 98.2 73 21 101/45 (63) 100 07/13/19 16:00 113 07/13/19 16:00 Simple Mask 7.0 07/13/19 15:00 73 21 101/45 (63) 99 07/13/19 14:30 78 21 90/48 (62) 99 07/13/19 14:00 81 22 88/48 (61) 99 07/13/19 13:00 81 22 92/48 (63) 99 07/13/19 12:00 Simple Mask 7.0 07/13/19 12:00 80 07/13/19 12:00 98.0 81 22 91/47 (62) 100 07/13/19 11:00 91 22 91/52 (65) 99 Intake and Output 07/13/19 07/14/19 19:00 07:00 Intake Total 140 ml 1800 ml Output Total 550 ml 785 ml Balance -410 ml 1015 ml Intake Oral 140 ml 0 ml IV Total 1500 ml Blood Product 300 ml Output Urine Total 550 ml 785 ml # Bowel Movements 3 1 Laboratory Tests 07/14/19 00:26: White Blood Count 8.5, Red Blood Count 2.33L, Hemoglobin 7.2L, Hematocrit 20.4L , Mean Corpuscular Volume 87, Mean Corpuscular Hemoglobin 31.1H, Mean Corpuscular Hemoglobin Concent 35.5, Red Cell Distribution Width 12.1, Platelet Count 234, Mean Platelet Volume 5.1L, Neutrophils (%) (Auto) , Lymphocytes (%) ( Auto) , Monocytes (%) (Auto) , Eosinophils (%) (Auto) , Basophils (%) (Auto) , Differential Total Cells Counted 100, Neutrophils % (Manual) 68, Lymphocytes % ( Manual) 24, Monocytes % (Manual) 8, Eosinophils % (Manual) 0, Basophils % ( Manual) 0, Band Neutrophils 0, Platelet Estimate Adequate, Platelet Morphology Normal, Polychromasia 1+, Hypochromasia 1+, Prothrombin Time 10.8, Prothromb Time International Ratio 1.0, Activated Partial Thromboplast Time 22L 07/14/19 05:42: White Blood Count 6.7, Red Blood Count 2.20L, Hemoglobin 6.8*L, Hematocrit 19.3L , Mean Corpuscular Volume 88, Mean Corpuscular Hemoglobin 31.1H, Mean Corpuscular Hemoglobin Concent 35.4, Red Cell Distribution Width 12.4, Platelet Count 212, Mean Platelet Volume 4.9L, Neutrophils (%) (Auto) , Lymphocytes (%) ( Auto) , Monocytes (%) (Auto) , Eosinophils (%) (Auto) , Basophils (%) (Auto) , Differential Total Cells Counted 100, Neutrophils % (Manual) 53, Lymphocytes % ( Manual) 32, Monocytes % (Manual) 9, Eosinophils % (Manual) 6H, Basophils % ( Manual) 0, Band Neutrophils 0, Platelet Estimate Adequate, Platelet Morphology Normal, Hypochromasia 1+, Sodium Level 141, Potassium Level 4.9, Chloride Level 108H, Carbon Dioxide Level 25, Anion Gap 8, Blood Urea Nitrogen 36H, Creatinine 1.7H, Estimat Glomerular Filtration Rate 40.2, Glucose Level 261#H, Calcium Level 7.8L, Phosphorus Level 3.9, Magnesium Level 1.4L, Total Bilirubin 0.2, Direct Bilirubin < 0.1, Aspartate Amino Transf (AST/SGOT) 18, Alanine Aminotransferase (ALT/SGPT) 31, Alkaline Phosphatase 55, Total Protein 5.1L, Albumin 2.2L Height (Feet): 5 Height (Inches): 9.00 Weight (Pounds): 228 General Appearance: lethargic EENT: normal ENT inspection Neck: normal alignment Cardiovascular: normal peripheral pulses, normal rate, regular rhythm Respiratory/Chest: chest wall non-tender, lungs clear, normal breath sounds Abdomen: normal bowel sounds, non tender, soft Extremities: normal inspection Edema: no edema noted Arm (L), no edema noted Arm (R), no edema noted Leg (L), no edema noted Leg (R), no edema noted Pedal (L), no edema noted Pedal (R), no edema noted Generalized Neurologic: motor weakness Skin: normal pigmentation, warm/dry Joe Salinas DO Jul 14, 2019 10:06
--- NOTE | 2019-07-14 10:09 | Pre-Procedure Note/Attestation ---
Pre-Procedure Note/Attestation Complete Prior to Procedure Planned Procedure: not applicable Procedure Narrative: EGD with possible push enteroscopy biopsy hemostasis Indications for Procedure Pre-Operative Diagnosis: UGIB Attestation I attest that I discussed the nature of the procedure; its benefits; risks and complications; and alternatives (and the risks and benefits of such alternatives ), prior to the procedure, with the patient (or the patient's legal cash application representative). I attest that, if there was a reasonable possibility of needing a blood transfusion, the patient (or the patient's legal cash application representative) was given the [facility] standardized written summary, pursuant to the [place] Blood Safety Act ([place] Health and Safety Code # 1645, as amended). I attest that I re-evaluated the patient just prior to the surgery and that there has been no change in the patient's H&P, except as documented below: Romario Finnegan MD Jul 14, 2019 10:09
--- NOTE | 2019-07-14 10:09 | General Progress Note ---
Assessment/Plan Status: unchanged Assessment/Plan: Assessment - Recurrent GIB, upper - Anemia, recurrent, needs more blood - gastric ulcers - diverticulosis Recommendations - monitor CBC - NPO - transfuse PRN - PPI - emergency EGD today Subjective Allergies: Coded Allergies: ASPIRIN (Verified Allergy, Unknown, 11/22/17) PENICILLINS (Verified Allergy, Unknown, 11/22/17) SULFAMETHOXAZOLE (Verified Allergy, Unknown, 11/22/17) TRIMETHOPRIM (Verified Allergy, Unknown, 11/22/17) Subjective above noted seen in ICU continues with bleeding maroon stools noted 2 more units of blood ordered for today emergency endoscopy scheduled for today d/w anesthesia visitor information assistant - Dr Cooper and Dr Hale indications for anesthesia support explained (age, morbid obesity, acute GIB, renal failure) Anesthesia declined to come to ICU, siting COVID risk concerns Anesthesia service suggested COSED protocol Above all discussed with patient and patient family, all questions answered Objective Last 24 Hour Vital Signs Date Time Temp Pulse Resp B/P (MAP) Pulse Ox O2 Delivery O2 Flow Rate FiO2 07/14/19 08:00 Nasal Cannula 3.0 07/14/19 08:00 84 15 118/49 (72) 100 07/14/19 07:00 80 17 124/55 (78) 100 07/14/19 06:00 85 18 108/47 (67) 100 07/14/19 05:00 88 14 128/51 (76) 100 07/14/19 04:00 77 07/14/19 04:00 Simple Mask 7.0 07/14/19 04:00 98.4 73 17 91/39 (56) 100 07/14/19 03:00 75 16 101/44 (63) 100 07/14/19 02:00 79 17 94/43 (60) 100 07/14/19 01:00 84 18 102/44 (63) 100 07/14/19 00:00 98.6 90 18 110/46 (67) 100 07/14/19 00:00 90 07/14/19 00:00 Simple Mask 7.0 07/13/19 23:00 94 106/49 (68) 100 07/13/19 22:00 102 22 109/49 (69) 100 07/13/19 21:30 104 23 98/46 (63) 100 07/13/19 21:00 108 17 104/45 (64) 100 07/13/19 20:30 110 24 108/46 (66) 100 07/13/19 20:00 112 07/13/19 20:00 Simple Mask 7.0 07/13/19 20:00 98.4 111 23 94/43 (60) 100 07/13/19 19:00 112 21 86/41 (56) 100 07/13/19 18:00 108 24 85/22 (43) 100 07/13/19 17:00 81 21 94/45 (61) 99 07/13/19 16:00 98.2 73 21 101/45 (63) 100 07/13/19 16:00 113 07/13/19 16:00 Simple Mask 7.0 07/13/19 15:00 73 21 101/45 (63) 99 07/13/19 14:30 78 21 90/48 (62) 99 07/13/19 14:00 81 22 88/48 (61) 99 07/13/19 13:00 81 22 92/48 (63) 99 07/13/19 12:00 Simple Mask 7.0 07/13/19 12:00 80 07/13/19 12:00 98.0 81 22 91/47 (62) 100 07/13/19 11:00 91 22 91/52 (65) 99 Intake and Output 07/13/19 07/14/19 19:00 07:00 Intake Total 140 ml 1800 ml Output Total 550 ml 785 ml Balance -410 ml 1015 ml Intake Oral 140 ml 0 ml IV Total 1500 ml Blood Product 300 ml Output Urine Total 550 ml 785 ml # Bowel Movements 3 1 Laboratory Tests 07/14/19 00:26: White Blood Count 8.5, Red Blood Count 2.33L, Hemoglobin 7.2L, Hematocrit 20.4L , Mean Corpuscular Volume 87, Mean Corpuscular Hemoglobin 31.1H, Mean Corpuscular Hemoglobin Concent 35.5, Red Cell Distribution Width 12.1, Platelet Count 234, Mean Platelet Volume 5.1L, Neutrophils (%) (Auto) , Lymphocytes (%) ( Auto) , Monocytes (%) (Auto) , Eosinophils (%) (Auto) , Basophils (%) (Auto) , Differential Total Cells Counted 100, Neutrophils % (Manual) 68, Lymphocytes % ( Manual) 24, Monocytes % (Manual) 8, Eosinophils % (Manual) 0, Basophils % ( Manual) 0, Band Neutrophils 0, Platelet Estimate Adequate, Platelet Morphology Normal, Polychromasia 1+, Hypochromasia 1+, Prothrombin Time 10.8, Prothromb Time International Ratio 1.0, Activated Partial Thromboplast Time 22L 07/14/19 05:42: White Blood Count 6.7, Red Blood Count 2.20L, Hemoglobin 6.8*L, Hematocrit 19.3L , Mean Corpuscular Volume 88, Mean Corpuscular Hemoglobin 31.1H, Mean Corpuscular Hemoglobin Concent 35.4, Red Cell Distribution Width 12.4, Platelet Count 212, Mean Platelet Volume 4.9L, Neutrophils (%) (Auto) , Lymphocytes (%) ( Auto) , Monocytes (%) (Auto) , Eosinophils (%) (Auto) , Basophils (%) (Auto) , Differential Total Cells Counted 100, Neutrophils % (Manual) 53, Lymphocytes % ( Manual) 32, Monocytes % (Manual) 9, Eosinophils % (Manual) 6H, Basophils % ( Manual) 0, Band Neutrophils 0, Platelet Estimate Adequate, Platelet Morphology Normal, Hypochromasia 1+, Sodium Level 141, Potassium Level 4.9, Chloride Level 108H, Carbon Dioxide Level 25, Anion Gap 8, Blood Urea Nitrogen 36H, Creatinine 1.7H, Estimat Glomerular Filtration Rate 40.2, Glucose Level 261#H, Calcium Level 7.8L, Phosphorus Level 3.9, Magnesium Level 1.4L, Total Bilirubin 0.2, Direct Bilirubin < 0.1, Aspartate Amino Transf (AST/SGOT) 18, Alanine Aminotransferase (ALT/SGPT) 31, Alkaline Phosphatase 55, Total Protein 5.1L, Albumin 2.2L Height (Feet): 5 Height (Inches): 9.00 Weight (Pounds): 228 Objective Obese WM NCAT supple CTA RR abd obese, distended no edema Romario Finnegan MD Jul 14, 2019 10:09
[2019-07-14] MEDS ORDERED: fentaNYL 100 mcg/2 mL IV ONE (10:18)
--- NOTE | 2019-07-14 10:25 | Nephrology Progress Note ---
Assessment/Plan Problem List: (1) Renal failure (ARF), acute on chronic (2) Dehydration (3) Gastrointestinal hemorrhage (4) Diabetes mellitus (5) Anemia (6) Electrolyte imbalance Assessment Upper GI bleed and coffee-ground emesis etiology unclear Acute on chronic renal failure Dehydration Electrolyte imbalance. Hyponatremia Anemia worsened since yesterday Obesity Diabetes and history of diabetic nephropathy significant elevation of hemoglobin A1c Plan Endoscopy results noted And another upper endoscopy today showing active duodenal ulcer transfusion done July 10 and more transfusion will be done today Magnesium sulfate IV supplement Keep n.p.o. on Protonix drip Renal parameters improved IV hydration Keep the blood sugar in check with sliding scale insulin Urine studies Monitor renal parameters Keep the blood pressure and blood sugar in check Anemia work-up Continue per GI advice Subjective ROS Limited/Unobtainable: No Constitutional: Reports: malaise Objective Objective Last 24 Hour Vital Signs Date Time Temp Pulse Resp B/P (MAP) Pulse Ox O2 Delivery O2 Flow Rate FiO2 07/14/19 08:00 Nasal Cannula 3.0 07/14/19 08:00 84 15 118/49 (72) 100 07/14/19 07:00 80 17 124/55 (78) 100 07/14/19 06:00 85 18 108/47 (67) 100 07/14/19 05:00 88 14 128/51 (76) 100 07/14/19 04:00 77 07/14/19 04:00 Simple Mask 7.0 07/14/19 04:00 98.4 73 17 91/39 (56) 100 07/14/19 03:00 75 16 101/44 (63) 100 07/14/19 02:00 79 17 94/43 (60) 100 07/14/19 01:00 84 18 102/44 (63) 100 07/14/19 00:00 98.6 90 18 110/46 (67) 100 07/14/19 00:00 90 07/14/19 00:00 Simple Mask 7.0 07/13/19 23:00 94 106/49 (68) 100 07/13/19 22:00 102 22 109/49 (69) 100 07/13/19 21:30 104 23 98/46 (63) 100 07/13/19 21:00 108 17 104/45 (64) 100 07/13/19 20:30 110 24 108/46 (66) 100 07/13/19 20:00 112 07/13/19 20:00 Simple Mask 7.0 07/13/19 20:00 98.4 111 23 94/43 (60) 100 07/13/19 19:00 112 21 86/41 (56) 100 07/13/19 18:00 108 24 85/22 (43) 100 07/13/19 17:00 81 21 94/45 (61) 99 07/13/19 16:00 98.2 73 21 101/45 (63) 100 07/13/19 16:00 113 07/13/19 16:00 Simple Mask 7.0 07/13/19 15:00 73 21 101/45 (63) 99 07/13/19 14:30 78 21 90/48 (62) 99 07/13/19 14:00 81 22 88/48 (61) 99 07/13/19 13:00 81 22 92/48 (63) 99 07/13/19 12:00 Simple Mask 7.0 07/13/19 12:00 80 07/13/19 12:00 98.0 81 22 91/47 (62) 100 07/13/19 11:00 91 22 91/52 (65) 99 Intake and Output 07/13/19 07/14/19 19:00 07:00 Intake Total 140 ml 1800 ml Output Total 550 ml 785 ml Balance -410 ml 1015 ml Intake Oral 140 ml 0 ml IV Total 1500 ml Blood Product 300 ml Output Urine Total 550 ml 785 ml # Bowel Movements 3 1 Laboratory Tests 07/14/19 00:26: White Blood Count 8.5, Red Blood Count 2.33L, Hemoglobin 7.2L, Hematocrit 20.4L , Mean Corpuscular Volume 87, Mean Corpuscular Hemoglobin 31.1H, Mean Corpuscular Hemoglobin Concent 35.5, Red Cell Distribution Width 12.1, Platelet Count 234, Mean Platelet Volume 5.1L, Neutrophils (%) (Auto) , Lymphocytes (%) ( Auto) , Monocytes (%) (Auto) , Eosinophils (%) (Auto) , Basophils (%) (Auto) , Differential Total Cells Counted 100, Neutrophils % (Manual) 68, Lymphocytes % ( Manual) 24, Monocytes % (Manual) 8, Eosinophils % (Manual) 0, Basophils % ( Manual) 0, Band Neutrophils 0, Platelet Estimate Adequate, Platelet Morphology Normal, Polychromasia 1+, Hypochromasia 1+, Prothrombin Time 10.8, Prothromb Time International Ratio 1.0, Activated Partial Thromboplast Time 22L 07/14/19 05:42: White Blood Count 6.7, Red Blood Count 2.20L, Hemoglobin 6.8*L, Hematocrit 19.3L , Mean Corpuscular Volume 88, Mean Corpuscular Hemoglobin 31.1H, Mean Corpuscular Hemoglobin Concent 35.4, Red Cell Distribution Width 12.4, Platelet Count 212, Mean Platelet Volume 4.9L, Neutrophils (%) (Auto) , Lymphocytes (%) ( Auto) , Monocytes (%) (Auto) , Eosinophils (%) (Auto) , Basophils (%) (Auto) , Differential Total Cells Counted 100, Neutrophils % (Manual) 53, Lymphocytes % ( Manual) 32, Monocytes % (Manual) 9, Eosinophils % (Manual) 6H, Basophils % ( Manual) 0, Band Neutrophils 0, Platelet Estimate Adequate, Platelet Morphology Normal, Hypochromasia 1+, Sodium Level 141, Potassium Level 4.9, Chloride Level 108H, Carbon Dioxide Level 25, Anion Gap 8, Blood Urea Nitrogen 36H, Creatinine 1.7H, Estimat Glomerular Filtration Rate 40.2, Glucose Level 261#H, Calcium Level 7.8L, Phosphorus Level 3.9, Magnesium Level 1.4L, Total Bilirubin 0.2, Direct Bilirubin < 0.1, Aspartate Amino Transf (AST/SGOT) 18, Alanine Aminotransferase (ALT/SGPT) 31, Alkaline Phosphatase 55, Total Protein 5.1L, Albumin 2.2L Height (Feet): 5 Height (Inches): 9.00 Weight (Pounds): 228 General Appearance: no apparent distress Cardiovascular: normal rate Respiratory/Chest: decreased breath sounds Abdomen: distended Objective No change Dawson Doty MD Jul 14, 2019 10:25
[2019-07-14] MEDS: Docusate 100mg/10ml Liq ORAL SCH ×2 (12:20→17:39)
--- NOTE | 2019-07-14 13:04 | Surgery Progress Note ---
Surgery Progress Note Subjective Additional Comments h/h trending down dark maroon stool transfusing egd today and noted; will monitor h/h Objective Last 24 Hour Vital Signs Date Time Temp Pulse Resp B/P (MAP) Pulse Ox O2 Delivery O2 Flow Rate FiO2 07/14/19 12:45 98.5 72 13 121/50 (73) 100 07/14/19 12:30 74 17 127/60 (82) 100 07/14/19 12:15 73 15 113/54 (73) 100 07/14/19 12:00 73 14 112/56 (74) 100 07/14/19 11:45 78 14 126/51 (76) 100 07/14/19 11:30 78 12 119/55 (76) 100 07/14/19 11:15 78 13 120/49 (72) 100 07/14/19 11:00 89 16 137/52 (80) 100 07/14/19 10:47 82 14 124/69 (87) 98 07/14/19 10:18 74 14 110/45 (66) 100 07/14/19 10:00 98.3 79 19 122/46 (71) 97 07/14/19 09:00 75 15 106/48 (67) 100 07/14/19 08:00 Nasal Cannula 3.0 07/14/19 08:00 84 07/14/19 08:00 84 15 118/49 (72) 100 07/14/19 07:00 80 17 124/55 (78) 100 07/14/19 06:00 85 18 108/47 (67) 100 07/14/19 05:00 88 14 128/51 (76) 100 07/14/19 04:00 77 07/14/19 04:00 Simple Mask 7.0 07/14/19 04:00 98.4 73 17 91/39 (56) 100 07/14/19 03:00 75 16 101/44 (63) 100 07/14/19 02:00 79 17 94/43 (60) 100 07/14/19 01:00 84 18 102/44 (63) 100 07/14/19 00:00 98.6 90 18 110/46 (67) 100 07/14/19 00:00 90 07/14/19 00:00 Simple Mask 7.0 07/13/19 23:00 94 106/49 (68) 100 07/13/19 22:00 102 22 109/49 (69) 100 07/13/19 21:30 104 23 98/46 (63) 100 07/13/19 21:00 108 17 104/45 (64) 100 07/13/19 20:30 110 24 108/46 (66) 100 07/13/19 20:00 112 07/13/19 20:00 Simple Mask 7.0 07/13/19 20:00 98.4 111 23 94/43 (60) 100 07/13/19 19:00 112 21 86/41 (56) 100 07/13/19 18:00 108 24 85/22 (43) 100 07/13/19 17:00 81 21 94/45 (61) 99 07/13/19 16:00 98.2 73 21 101/45 (63) 100 07/13/19 16:00 113 07/13/19 16:00 Simple Mask 7.0 07/13/19 15:00 73 21 101/45 (63) 99 07/13/19 14:30 78 21 90/48 (62) 99 07/13/19 14:00 81 22 88/48 (61) 99 I&O Intake and Output 07/13/19 07/14/19 19:00 07:00 Intake Total 140 ml 1800 ml Output Total 550 ml 785 ml Balance -410 ml 1015 ml Intake Oral 140 ml 0 ml IV Total 1500 ml Blood Product 300 ml Output Urine Total 550 ml 785 ml # Bowel Movements 3 1 Cardiovascular: RSR Respiratory: decreased breath sounds Abdomen: soft, non-tender, present bowel sounds Extremities: no tenderness, no cyanosis Laboratory Tests Test 07/14/19 00:26 07/14/19 05:42 White Blood Count 8.5 K/UL (4.8-10.8) 6.7 K/UL (4.8-10.8) Red Blood Count 2.33 M/UL (4.70-6.10) L 2.20 M/UL (4.70-6.10) L Hemoglobin 7.2 G/DL (14.2-18.0) L 6.8 G/DL (14.2-18.0) *L Hematocrit 20.4 % (42.0-52.0) L 19.3 % (42.0-52.0) L Mean Corpuscular Volume 87 FL (80-99) 88 FL (80-99) Mean Corpuscular Hemoglobin 31.1 PG (27.0-31.0) H 31.1 PG (27.0-31.0) H Mean Corpuscular Hemoglobin Concent 35.5 G/DL (32.0-36.0) 35.4 G/DL (32.0-36.0) Red Cell Distribution Width 12.1 % (11.6-14.8) 12.4 % (11.6-14.8) Platelet Count 234 K/UL (150-450) 212 K/UL (150-450) Mean Platelet Volume 5.1 FL (6.5-10.1) L 4.9 FL (6.5-10.1) L Neutrophils (%) (Auto) % (45.0-75.0) % (45.0-75.0) Lymphocytes (%) (Auto) % (20.0-45.0) % (20.0-45.0) Monocytes (%) (Auto) % (1.0-10.0) % (1.0-10.0) Eosinophils (%) (Auto) % (0.0-3.0) % (0.0-3.0) Basophils (%) (Auto) % (0.0-2.0) % (0.0-2.0) Differential Total Cells Counted 100 100 Neutrophils % (Manual) 68 % (45-75) 53 % (45-75) Lymphocytes % (Manual) 24 % (20-45) 32 % (20-45) Monocytes % (Manual) 8 % (1-10) 9 % (1-10) Eosinophils % (Manual) 0 % (0-3) 6 % (0-3) H Basophils % (Manual) 0 % (0-2) 0 % (0-2) Band Neutrophils 0 % (0-8) 0 % (0-8) Platelet Estimate Adequate Adequate Platelet Morphology Normal Normal Polychromasia 1+ Hypochromasia 1+ 1+ Prothrombin Time 10.8 SEC (9.30-11.50) Prothromb Time International Ratio 1.0 (0.9-1.1) Activated Partial Thromboplast Time 22 SEC (23-33) L Sodium Level 141 MMOL/L (136-145) Potassium Level 4.9 MMOL/L (3.5-5.1) Chloride Level 108 MMOL/L (98-107) H Carbon Dioxide Level 25 MMOL/L (21-32) Anion Gap 8 mmol/L (5-15) Blood Urea Nitrogen 36 mg/dL (7-18) H Creatinine 1.7 MG/DL (0.55-1.30) H Estimat Glomerular Filtration Rate 40.2 mL/min (>60) Glucose Level 261 MG/DL (74-106) #H Calcium Level 7.8 MG/DL (8.5-10.1) L Phosphorus Level 3.9 MG/DL (2.5-4.9) Magnesium Level 1.4 MG/DL (1.8-2.4) L Total Bilirubin 0.2 MG/DL (0.2-1.0) Direct Bilirubin < 0.1 MG/DL (0.0-0.3) Aspartate Amino Transf (AST/SGOT) 18 U/L (15-37) Alanine Aminotransferase (ALT/SGPT) 31 U/L (12-78) Alkaline Phosphatase 55 U/L (46-116) Total Protein 5.1 G/DL (6.4-8.2) L Albumin 2.2 G/DL (3.4-5.0) L Plan Problems: (1) Decubitus skin ulcer Assessment & Plan: Patient presented on admission with full thickness stage 4 pressure injury L buttocks (L)1.1cm x (W)1.5cm x (D)0.3cm. Base of wound is sapphire and moist. Borders are macerated .Surrounding non-blanching erythema without induration. Pt complained of pain when minimally palpated. Base of scrotum is erythematous with small area of shearing noted. Medial boggy with non-blanching erythema. Pt yells when minimally palpated. (L) 5.5cm x (W)5cm. Historical scar L heel. L heel is boggy but blanchable. Tx.Plan: Cleanse L buttocks with Saline. Apply TheraHoney. Apply Moisture Barrier Paste periwound. Cover with Optifoam Drsg Daily and prn. Apply Moisture Barrier Paste to scrotum with each Incontinence care. Apply Cavilon Skin Barrier to both heels. Cover each heel with Optifoam drsg. Change every 7 days and prn. Reposition at least every 2hours or as tolerated. Off-load heels with pillow. APM/IRIS Mattress overlay. (2) Gastrointestinal hemorrhage Assessment & Plan: Patient with coffee-ground emesis possible GI bleed severe anemia requiring transfusion Currently no active bleeding noted Agree with GI recommend endoscopy/colonoscopy for evaluation PPI N.p.o. IV fluids Trend labs We will follow with recommendations as work-up completed thank you for let me participate in patient's care repeat egd at bedside in ICU with possible etiology identified and hemostasis will monitor trend h/h There is a small left inguinal hernia which contains only fat. There are colonic diverticula. There is considerable retained stool within the proximal sigmoid colon. There is no evidence of acute diverticulitis. The appendix is normal. No small bowel distention. No free or loculated intraperitoneal gas or fluid is evident. The stomach is mildly distended with gas. No downstream obstructive lesion is demonstrated, however. The duodenum and distal esophagus are unremarkable. Lack of IV contrast limits assessment of solid organs. The liver is grossly unremarkable. The gallbladder contains gallstones. No biliary ductal dilatation. The pancreas is unremarkable. The spleen demonstrates an accessory splenule, is otherwise unremarkable. The adrenals are unremarkable. The kidneys demonstrate bilateral nonspecific perinephric fat stranding. No definite focal abnormality. No hydronephrosis or hydroureter or renal or ureteral calculi demonstrated. The kidneys are somewhat atrophic. The bladder is mildly distended. No pelvic mass demonstrated. There are some prominent iliac chain nodes bilaterally, largest on the left measuring up to 19 mm long axis dimension. There are also prominent retroperitoneal nodes, largest measuring 2.4 cm long axis dimension, 1.1 cm short axis dimension. No pelvic mass. 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 There is considerable heterotopic ossification of the left hip region. Some surgical scarring is seen in the left hip region soft tissues. There are degenerative changes of the lumbar spine. The included lung bases demonstrate posterior dependent atelectatic changes. Impression: Limited assessment of the GI tract, due to lack of enteric contrast demonstration Mild gastric distention without evidence of downstream obstructive lesion. No acute process otherwise. Cholelithiasis Mildly distended bladder Colonic diverticulosis. No evidence of diverticulitis Nonspecific bilateral perinephric fat stranding Borderline bilateral iliac and retroperitoneal lymphadenopathy, of uncertain significance. Could be baseline for this patient versus reactive, less likely indicative of metastatic neoplasm or lymphoproliferative disorder (3) Morbid obesity Good Love Jul 14, 2019 13:04
[2019-07-14] MEDS ORDERED: NS 275ml ONE (14:01)
[2019-07-14] MEDS ORDERED: 1/2 NS 1000ml IV ONE (14:01)
[2019-07-14] MEDS ORDERED: Tubing IV Secondary IV ONE (14:01)
[2019-07-14] MEDS ORDERED: Tubing IV Blood Pump IV ONE (14:01)
--- NOTE | 2019-07-14 18:10 | Endoscopy Procedure Note ---
Endoscopy Procedure Note General Indication for Procedure: GIB Procedures Performed: EGD Operative Findings/Diagnosis: Bulb DU, shallow, white based, 1/3 circumferential, not active bleeding Specimen: none Pt Tolerated Procedure Well: Yes Estimated Blood Loss: none Anesthesia Anesthesiologist: Dr Finnegan Anesthesia: other - CO SED BY DR FINNEGAN Inserted Devices Implant(s) used?: No GI Core Measures 50 yrs or older w/o bx or poly: Not Applicable 10yrs. F/U recommended: Not Applicable Romario Finnegan MD Jul 14, 2019 18:10
--- NOTE | 2019-07-14 18:11 | Brief Operative Note ---
Immediate Post Operative Note Operative Note Chief Complaint: GIB Pre-op Diagnosis: UGIB Procedure: EGD Post-op Diagnosis: Bulb DU, shallow, white based, 1/3 circumferential, not active bleeding Surgeon: Sivan Anesthesiologist: None Specimen: none Complications: none Condition: stable Fluids: see ICU record Implant(s) used?: No Romario Finnegan MD Jul 14, 2019 18:11
[2019-07-14 19:42] LABS: BASOPHILS % (AUTO) 1.7 % (0.0-2.0); EOSINOPHILS % (AUTO) 5.2 % (0.0-3.0); HEMATOCRIT 25.3 % (42.0-52.0); HEMOGLOBIN 8.3 G/DL (14.2-18.0); LYMPHOCYTES % (AUTO) 22.6 % (20.0-45.0); MEAN CORPUSCULAR VOLUME 90 FL (80-99); MONOCYTES % (AUTO) 7.6 % (1.0-10.0); NEUTROPHILS % (AUTO) 62.9 % (45.0-75.0); PLATELET COUNT 230 K/UL (150-450); RED BLOOD COUNT 2.81 M/UL (4.70-6.10); RED CELL DISTRIBUTION WIDTH 12.9 % (11.6-14.8); WHITE BLOOD COUNT 6.1 K/UL (4.8-10.8)
[2019-07-14] MEDS: Tamsulosin 0.4mg cap ORAL SCH (21:00)
--- NOTE | 2019-07-14 22:15 | Operative Note - Dictated ---
DATE OF OPERATION: 07/14/2019 GASTROENTEROLOGY PROCEDURE REPORT PROCEDURE: Upper gastrointestinal endoscopy with biopsy. SURGEON: Romario Finnegan M.D. ANESTHESIA: Conscious sedation by Dr. Romario Finnegan. PRE-ENDOSCOPIC DIAGNOSIS: Recurrent gastrointestinal bleeding. POST-ENDOSCOPIC DIAGNOSES: 1. Mild gastritis and healing. 2. Flat wide-based duodenal ulcer in the bulb as described below without active bleeding. DESCRIPTION OF PROCEDURE: The procedure, its risks, indications, alternatives, and possible complications were explained to the patient as well as his family and informed consent was obtained. Time-out was called and the patient was sedated and a diagnostic upper endoscope was introduced through oropharynx and advanced to the duodenum. The endoscope was then gradually withdrawn and mucosa examined carefully. Examination of the upper gastrointestinal mucosa revealed some mild erosive changes in the antrum and in the fundus of the stomach without bleeding or ulceration. In the duodenal bulb, there was a flat duodenal ulcer, which was shallow that encompass one-third of the circumference. There was no active bleeding. The remainder of the examination was unremarkable. The endoscope was removed and the patient was sent to Recovery in good condition. COMPLICATIONS: None. RECOMMENDATIONS: 1. Continue observation. 2. Continue proton pump inhibitor. 3. Check Helicobacter pylori in the stool. 4. Resume oral diet tomorrow if stable. Romario Finnegan M.D. DR: TIARA JOB#: [id number] CC:
[2019-07-15] VITALS (25 sets, daily range): BP systolic 31–154; BP diastolic 14–74
--- NOTE | 2019-07-15 02:45 | Operative Note - Dictated ---
DATE OF OPERATION: 07/14/2019 SURGEON: Romario Finnegan M.D. PROCEDURE IN DETAIL: This patient underwent endoscopy for evaluation of gastrointestinal bleeding. Anesthesia was provided by the surgeon, who performed this procedure. The patient was evaluated preanesthesia administration at 10:10 in the morning. The first dose of anesthesia was given at 10:15 and the procedure was completed at 10:40 with total duration of anesthesia and observation of 30 minutes. Versed and fentanyl were given in divided doses to achieve adequate conscious sedation. Continuous pulse oximetry, rhythm monitoring, and blood pressure monitoring were provided. The patient's vital signs and oxygen saturation were monitored closely, and the patient had no anesthesia complications. He received a total dose of 1 mg of Versed and 25 mcg of fentanyl intravenously. He was arousable at the end of the procedure. The patient was left to recover in the ICU in stable condition. Romario Finnegan M.D. DR: BOB JOB#: [id number] CC:
[2019-07-15 05:16] LABS: BASOPHILS % (AUTO) 1.2 % (0.0-2.0); EOSINOPHILS % (AUTO) 7.1 % (0.0-3.0); HEMATOCRIT 24.5 % (42.0-52.0); HEMOGLOBIN 8.6 G/DL (14.2-18.0); LYMPHOCYTES % (AUTO) 24.2 % (20.0-45.0); MEAN CORPUSCULAR VOLUME 88 FL (80-99); MONOCYTES % (AUTO) 9.3 % (1.0-10.0); NEUTROPHILS % (AUTO) 58.3 % (45.0-75.0); PLATELET COUNT 225 K/UL (150-450); RED BLOOD COUNT 2.78 M/UL (4.70-6.10); RED CELL DISTRIBUTION WIDTH 12.5 % (11.6-14.8); WHITE BLOOD COUNT 6.2 K/UL (4.8-10.8)
[2019-07-15 05:53] LABS: ANION GAP 12 mmol/L (5-15); BLOOD UREA NITROGEN 26 mg/dL (7-18); CALCIUM 8.1 MG/DL (8.5-10.1); CARBON DIOXIDE 22 MMOL/L (21-32); CHLORIDE 107 MMOL/L (98-107); CREATININE 1.5 MG/DL (0.55-1.30); POTASSIUM 4.7 MMOL/L (3.5-5.1); SODIUM 141 MMOL/L (136-145)
[2019-07-15] MEDS: Pantoprazole 80 MG in NS 250 ML IV SCH ×2 (06:21→17:03)
[2019-07-15] MEDS: NovoLOG Insulin Flexpen SUBQ SCH ×4 (06:27→20:49)
[2019-07-15] MEDS: Bisacodyl EC 5mg tab ORAL SCH (08:48)
[2019-07-15] MEDS: Docusate 100mg/10ml Liq ORAL SCH ×2 (08:49→13:05)
--- NOTE | 2019-07-15 09:22 | Moderate Sedation - Procedural ---
Moderate Sedation HPI Home Medication Reported Medications Multivitamins* (MULTIVITAMINS*) 1 Each Tablet, 1 TAB ORAL DAILY for SUPPLEMENT, TAB 0 Refills 07/11/19 Magnesium Hydroxide* (MILK OF MAGNESIA*) 400 Mg/5 Ml Oral.susp, 30 ML ORAL QHS PRN for CONSTIPATION, ML IF STOOL SOFTENERS INEFFECTIVE 07/11/19 Divalproex Sodium* (DEPAKOTE ER*) 250 Mg Tab.er.24h, 750 MG ORAL EVERY 12 HOURS for SEIZURE DISORDER, TAB 07/11/19 Docusate Sodium* (COLACE*) 100 Mg Capsule, 100 MG ORAL DAILY for STOOL SOFTENER , CAP HOLD FOR LOOSE BOWEL MOVEMENTS 07/11/19 Brimonidine Tartrate* (ALPHAGAN*) 5 Ml Drops, 1 DROP BOTH EYES TID for GLAUCOMA , ML 07/11/19 Ondansetron* (ZOFRAN 4 MG/2 ML VIAL*) 4 Mg/2 Ml Vial, 4 MG IM Q6H PRN for Nausea & Vomiting, VIAL 07/11/19 Hum Insulin Nph/Reg Insulin Hm (HUMULIN 70-30 VIAL) 100 Unit/1 Ml Vial, 20 UNITS SUBQ EVERY EVENING for DIABETES MELLITUS for 7 Days, VIAL WITH DINNER 07/11/19 Bisacodyl (BISACODYL) 10 Mg Supp.rect, 10 MG RC DAILY PRN for Constipation, SUPP IF MILK OF MAGNESIA IS INEFFECTIVE 07/11/19 Acetaminophen* (ACETAMINOPHEN 325MG TABLET*) 325 Mg Tablet, 650 MG ORAL Q4H PRN for Mild Pain/Temp > 100.5, TAB 07/11/19 Risperidone* (RISPERDAL*) 0.5 Mg Tablet, 0.5 MG ORAL BID for SCHIZOPHRENIA, TAB 0 Refills 07/11/19 Ascorbic Acid* (VITAMIN C*) 500 Mg Tablet, 500 MG ORAL DAILY for wound healing, #30 TAB 0 Refills 07/09/19 Zinc Sulfate (ZINC SULFATE*) 220 Mg Capsule, 220 MG ORAL DAILY for WOUND HEALING for 14 Days, CAP 0 Refills 07/09/19 Linagliptin (TRADJENTA) 5 Mg Tablet, 5 MG PO DAILY for DIABETES MELLITUS, TAB HOLD FOR BS < 80 MG/DL 07/09/19 Sennosides (SENNA) 8.6 Mg Tablet, 17.2 MG PO QHS for constipation, TAB HOLD FOR LOOSE BOWEL MOVEMENT 07/09/19 Atorvastatin Calcium* (LIPITOR*) 10 Mg Tablet, 10 MG ORAL BEDTIME for hyperlipidemia, TAB 07/09/19 Insulin Detemir (LEVEMIR) 100 Unit/1 Ml Vial, 0 SUBQ BID for dm, VIAL 66 UNIT QHS 70 UNITS QAM 07/09/19 Na Phos,M-B/Na Phos,Di-Ba* (FLEET ENEMA*) 133 Ml Enema, 133 ML RECTAL EVERY OTHER DAY PRN for Constipation, ML 0 Refills IF DULCOLAX IS INEFFECTIVE 07/09/19 Fish Oil (Fish Oil 1,000 mg Capsule) 1 Each Capsule, 1000 MG ORAL DAILY for supplement, CAP 07/09/19 Valsartan (DIOVAN) 80 Mg Tab, 80 MG ORAL DAILY for htn, TAB HOLD IS SBP < 120, HR < 50 07/09/19 Nateglinide (Starlix) 120 Mg Tablet, 120 MG ORAL THREE TIMES A DAY for DIABETES MELLITUS, TAB HOLD FOR BS < 80 MG/DL 11/27/17 Famotidine* (Pepcid 20mg tablet*) 20 Mg Tablet, 20 MG ORAL ACBREAKFAST for GERD , TAB 0 Refills 11/27/17 Temazepam* (RESTORIL*) 15 Mg Capsule, 15 MG ORAL BEDTIME PRN for Insomnia, CAP 11/22/17 Amlodipine Besylate (Norvasc) 2.5 Mg Tablet, 2.5 MG ORAL DAILY for htn, TAB HOLD FOR SBP <110, HR<60 11/22/17 Escitalopram Oxalate* (LEXAPRO*) 10 Mg Tablet, 10 MG ORAL DAILY for DEPRESSION, TAB 11/22/17 Glucagon (Glucagen) 1 Mg/1 Ml Vial, 1 MG IM PRN for Hypoglycemia, VIAL BS < 60 MG/DL 11/22/17 Gabapentin* (GABAPENTIN*) 400 Mg Capsule, 400 MG ORAL THREE TIMES A DAY for NEURALGIA, CAP 0 Refills 11/22/17 Tamsulosin HCl (Flomax) 0.4 Mg Cap.er.24h, 0.4 MG ORAL QHS for BPH, CAP 11/22/17 Ipratropium/Albuterol Sulfate (DuoNeb 0.5-3(2.5)mg/3ml) 3 Ml Ampul.neb, 3 ML HHN Q4HR for SHORTNESS OF BREATH, EA 11/22/17 Discontinued Reported Medications Ondansetron* (ZOFRAN*) 4 Mg Tablet, 4 MG ORAL Q6H PRN for Nausea & Vomiting, TAB 07/09/19 Nph, Human Insulin Isophane (HUMULIN N) 100 Unit/1 Ml Vial, 0 SUBQ for dm, VIAL 07/09/19 Bisacodyl* (DULCOLAX*) 5 Mg Tablet.dr, 10 MG ORAL DAILY for constpiation, #10 TAB 0 Refills 07/09/19 Acetaminophen* (TYLENOL EXTRA STRENGTH*) 500 Mg Tablet, 650 MG ORAL Q4HR PRN for Mild Pain/Temp > 100.5, TAB 0 Refills 11/22/17 Risperidone* (RISPERDAL*) 2 Mg Tablet, 2 MG ORAL DAILY, #30 TAB 0 Refills 11/22/17 Lorazepam* (ATIVAN*) 1 Mg Tablet, 1 MG ORAL Q6HR PRN for For Anxiety, TAB 11/27/17 Insulin Aspart* (NOVOLOG*) 100 Unit/1 Ml Insuln.pen, 0 SUBQ ACHS, #1 EA 0 Refills Sliding scale 11/27/17 Heparin Sod (Porcine) (HEPARIN SODIUM*) 5 000/1 Ml Vial, 5000 UNITS SUBQ EVERY 12 HOURS, VIAL 11/27/17 Atorvastatin Calcium* (ATORVASTATIN CALCIUM*) 20 Mg Tablet, 10 MG ORAL BEDTIME, TAB 11/27/17 Aripiprazole* (ABILIFY*) 2 Mg Tablet, 5 MG ORAL DAILY, TAB 11/27/17 Amlodipine Besylate (Norvasc) 5 Mg Tablet, 5 MG ORAL DAILY, TAB 11/27/17 Latanoprost* (XALATAN*) 2.5 Ml Drops, 1 DROP BOTH EYES BEDTIME, #2.5 ML 0 Refills 11/22/17 Ascorbic Acid* (VITAMIN C*) 500 Mg Tablet, 500 MG ORAL DAILY, #30 TAB 0 Refills 11/22/17 Tramadol Hcl* (ULTRAM*) 50 Mg Tablet, 50 MG ORAL Q6H PRN for For Pain, #30 TAB 0 Refills 11/22/17 Rifaximin* (XIFAXAN*) 550 Mg Tablet, 550 MG ORAL TID for 30 Days, MG 0 Refills 11/22/17 Multivitamins* (MULTIVITAMINS*) 1 Each Tablet, 1 TAB ORAL DAILY, TAB 0 Refills 11/22/17 Enoxaparin* (LOVENOX*) 40 Mg/0.4 Ml Inj, 40 MG SUBQ DAILY 11/22/17 Losartan Potassium* (LOSARTAN POTASSIUM*) 50 Mg Tablet, 50 MG ORAL DAILY, TAB 11/22/17 Insulin Glargine (LANTUS) 100 Unit/1 Ml Insuln.pen, 26 UNITS SUBQ BEDTIME, #1 EA 0 Refills 11/22/17 Lactobacillus Acidophilus (ACIDOPHILUS) 1 Each Capsule, 1 EACH PO, CAP 11/22/17 Arginine/Glutamine/Calcium Hmb (MARZENA PACKET) 1 Each Powd.pack, 1 EACH PO, PACK 11/22/17 Glipizide* (GLIPIZIDE*) 5 Mg Tablet, 5 MG ORAL BIDAC, TAB 11/22/17 Na Phos,M-B/Na Phos,Di-Ba* (FLEET ENEMA*) 133 Ml Enema, 133 ML RECTAL PRN for Constipation, ML 0 Refills 11/22/17 Divalproex Sodium* (DEPAKOTE ER*) 500 Mg Tab.er.24h, 750 MG ORAL EVERY 12 HOURS , TAB 11/22/17 Docusate Sodium* (COLACE*) 100 Mg Capsule, 100 MG ORAL DAILY, CAP 11/22/17 Benztropine Mesylate* (COGENTIN*) 0.5 Mg Tablet, 1 MG PO, TAB 11/22/17 Cholecalciferol (Vitamin D3)* (VITAMIN D*) 1,000 Unit Tablet, 1000 UNIT ORAL DAILY, #30 TAB 11/22/17 Calcium Carbonate/Vitamin D3 (CALCIUM 500 + VIT D 200 CAPLET) 1 Each Tablet, 1 EACH PO, TAB 11/22/17 Baclofen* (BACLOFEN*) 10 Mg Tablet, 10 MG ORAL THREE TIMES A DAY, TAB 11/22/17 Brimonidine Tartrate* (ALPHAGAN*) 5 Ml Drops, 1 DROP BOTH EYES TID, ML 11/22/17 Pioglitazone Hcl* (ACTOS*) 30 Mg Tablet, 30 MG ORAL DAILY, TAB 11/22/17 Patient History Allergies: Coded Allergies: ASPIRIN (Verified Allergy, Unknown, 11/22/17) PENICILLINS (Verified Allergy, Unknown, 11/22/17) SULFAMETHOXAZOLE (Verified Allergy, Unknown, 11/22/17) TRIMETHOPRIM (Verified Allergy, Unknown, 11/22/17) Pre-Procedural Mod Sedation Date: Jul 14, 2019 Pre-Assessment Time: 10:10 Vital Signs per icu flowsheet Pre-Sedation Assessment: Patient Examined Airway Assessment (Malampati): II Heart: normal Lungs: normal Abdomen: normal Extremities: normal Pre-op Diagnosis: GI Bleed Evaluation Hx of untoward rxns to mod sed: No Procedures/Plans: EGD Plan for Moderate Sedation: Midazolam, Fentanyl ASA Score: III Informed Consent The nature of the procedure/sedation; its benefits; risks and complications; and alternatives (and the risks and benefits of such alternatives) were discussed with the patient (or their legal customer operations representative), prior to the procedure. All questions were answered to the patient's (or their legal customer operations representative's) satisfaction and the patient (or their legal customer operations representative) gave informed consent to the procedure. I attest that I re-evaluated the patient just prior to the surgery and that there has been no change in the patient's H&P, except as documented below: Post Procedure Assessment Post Procedure TIme: 10:40 Communication: No Apparent Limitation Mental Status: Awake Respiration: Unlabored Skin Condition: WNL Adomen: WNL Nausea: NO Vomiting: NO Romario Finnegan MD Jul 15, 2019 09:22
--- NOTE | 2019-07-15 09:56 | General Progress Note ---
Assessment/Plan Problem List: (1) Diabetes mellitus ICD Codes: E11.9 - Type 2 diabetes mellitus without complications SNOMED: 22861781 (2) Morbid obesity ICD Codes: E66.01 - Morbid (severe) obesity due to excess calories SNOMED: 846135979 (3) Gastrointestinal hemorrhage ICD Codes: K92.2 - Gastrointestinal hemorrhage, unspecified SNOMED: 42020290 Qualifiers: Qualified Codes: K92.2 - Gastrointestinal hemorrhage, unspecified (4) Anemia ICD Codes: D64.9 - Anemia, unspecified SNOMED: 077703025 (5) Renal failure (ARF), acute on chronic ICD Codes: N17.9 - Acute kidney failure, unspecified; N18.9 - Chronic kidney disease, unspecified SNOMED: 277332260 (6) Hemoptysis ICD Codes: R04.2 - Hemoptysis SNOMED: 05236777 Status: unchanged Assessment/Plan: pt diet gi/neph f/u cbc bmp am transfuse prn aru eval Subjective Constitutional: Reports: weakness Allergies: Coded Allergies: ASPIRIN (Verified Allergy, Unknown, 11/22/17) PENICILLINS (Verified Allergy, Unknown, 11/22/17) SULFAMETHOXAZOLE (Verified Allergy, Unknown, 11/22/17) TRIMETHOPRIM (Verified Allergy, Unknown, 11/22/17) All Systems: reviewed and negative except above Subjective calm in bed in icu Objective Last 24 Hour Vital Signs Date Time Temp Pulse Resp B/P (MAP) Pulse Ox O2 Delivery O2 Flow Rate FiO2 07/15/19 09:00 86 21 141/55 (83) 100 07/15/19 08:05 64 07/15/19 08:00 Nasal Cannula 3.0 07/15/19 08:00 97.9 66 15 126/45 (72) 99 07/15/19 07:00 67 12 119/49 (72) 100 07/15/19 06:00 98.1 67 21 124/49 (74) 100 07/15/19 05:00 64 16 125/47 (73) 99 07/15/19 04:00 Nasal Cannula 3.0 07/15/19 04:00 65 15 129/49 (75) 99 07/15/19 03:18 65 07/15/19 03:00 98.2 77 14 135/52 (79) 100 3/16/20 02:16 76 16 112/51 (71) 100 07/15/19 02:00 81 18 31/14 (20) 100 07/15/19 01:00 97.8 65 12 125/51 (75) 99 07/15/19 00:00 Nasal Cannula 3.0 07/15/19 00:00 61 13 118/51 (73) 100 07/14/19 23:11 70 07/14/19 23:00 59 14 115/49 (71) 100 07/14/19 22:00 97.6 75 13 133/56 (81) 100 07/14/19 21:00 63 14 119/51 (73) 100 07/14/19 20:00 75 14 111/53 (72) 98 07/14/19 20:00 Nasal Cannula 3.0 07/14/19 19:47 84 20 95 Nasal Cannula 2.0 28 07/14/19 19:19 81 07/14/19 19:00 98.6 82 15 111/53 (72) 98 07/14/19 18:00 70 13 141/56 (84) 99 07/14/19 17:00 97.9 81 12 127/57 (80) 100 07/14/19 16:00 75 07/14/19 16:00 73 12 106/49 (68) 99 07/14/19 16:00 Nasal Cannula 3.0 07/14/19 15:00 76 14 126/50 (75) 99 07/14/19 14:00 98.3 83 12 119/58 (78) 100 07/14/19 12:45 98.5 72 13 121/50 (73) 100 07/14/19 12:30 74 17 127/60 (82) 100 07/14/19 12:15 73 15 113/54 (73) 100 07/14/19 12:15 75 07/14/19 12:00 Nasal Cannula 3.0 07/14/19 12:00 73 14 112/56 (74) 100 07/14/19 11:45 78 14 126/51 (76) 100 07/14/19 11:30 78 12 119/55 (76) 100 07/14/19 11:15 78 13 120/49 (72) 100 07/14/19 11:00 89 16 137/52 (80) 100 07/14/19 10:47 82 14 124/69 (87) 98 07/14/19 10:18 74 14 110/45 (66) 100 07/14/19 10:00 98.3 79 19 122/46 (71) 97 Intake and Output 07/14/19 07/15/19 19:00 07:00 Intake Total 1569.583 ml 1128.7500 ml Output Total 1090 ml 1675 ml Balance 479.583 ml -546.2500 ml Intake Oral 0 ml IV Total 1069.583 ml 1128.7500 ml Blood Product 250 ml Hemodialysis 250 ml Output Urine Total 1090 ml 1675 ml # Voids 1 12 # Bowel Movements 2 Laboratory Tests 07/14/19 19:20: White Blood Count 6.1, Red Blood Count 2.81L, Hemoglobin 8.3L, Hematocrit 25.3#L , Mean Corpuscular Volume 90, Mean Corpuscular Hemoglobin 29.6, Mean Corpuscular Hemoglobin Concent 33.0, Red Cell Distribution Width 12.9, Platelet Count 230, Mean Platelet Volume 6.0L, Neutrophils (%) (Auto) 62.9, Lymphocytes ( %) (Auto) 22.6, Monocytes (%) (Auto) 7.6, Eosinophils (%) (Auto) 5.2H, Basophils (%) (Auto) 1.7, Prothrombin Time 10.2, Prothromb Time International Ratio 1.0, Activated Partial Thromboplast Time 23 07/15/19 04:15: White Blood Count 6.2, Red Blood Count 2.78L, Hemoglobin 8.6L, Hematocrit 24.5L , Mean Corpuscular Volume 88, Mean Corpuscular Hemoglobin 30.8, Mean Corpuscular Hemoglobin Concent 35.0, Red Cell Distribution Width 12.5, Platelet Count 225, Mean Platelet Volume 5.3L, Neutrophils (%) (Auto) 58.3, Lymphocytes ( %) (Auto) 24.2, Monocytes (%) (Auto) 9.3, Eosinophils (%) (Auto) 7.1H, Basophils (%) (Auto) 1.2, Sodium Level 141, Potassium Level 4.7, Chloride Level 107, Carbon Dioxide Level 22, Anion Gap 12, Blood Urea Nitrogen 26H, Creatinine 1.5H, Estimat Glomerular Filtration Rate 46.4, Glucose Level 254H, Calcium Level 8.1L, Magnesium Level 2.4 Height (Feet): 5 Height (Inches): 7.00 Weight (Pounds): 223 General Appearance: alert EENT: normal ENT inspection Neck: normal alignment Cardiovascular: normal peripheral pulses, normal rate, regular rhythm Respiratory/Chest: chest wall non-tender, lungs clear, normal breath sounds Abdomen: normal bowel sounds, non tender, soft Extremities: normal inspection Edema: no edema noted Arm (L), no edema noted Arm (R), no edema noted Leg (L), no edema noted Leg (R), no edema noted Pedal (L), no edema noted Pedal (R), no edema noted Generalized Neurologic: motor weakness Skin: normal pigmentation, warm/dry Joe Salinas DO Jul 15, 2019 09:56
--- NOTE | 2019-07-15 10:22 | General Progress Note ---
Assessment/Plan Status: unchanged Assessment/Plan: gib gastric ulcer duodenal ulcer stable labs today no obvious bleeding per nurses cough with swallowing swallow eval puree diet pending above ppi fu cbc Subjective ROS Limited/Unobtainable: No Allergies: Coded Allergies: ASPIRIN (Verified Allergy, Unknown, 11/22/17) PENICILLINS (Verified Allergy, Unknown, 11/22/17) SULFAMETHOXAZOLE (Verified Allergy, Unknown, 11/22/17) TRIMETHOPRIM (Verified Allergy, Unknown, 11/22/17) Objective Last 24 Hour Vital Signs Date Time Temp Pulse Resp B/P (MAP) Pulse Ox O2 Delivery O2 Flow Rate FiO2 07/15/19 09:00 86 21 141/55 (83) 100 07/15/19 08:05 64 07/15/19 08:00 Nasal Cannula 3.0 07/15/19 08:00 97.9 66 15 126/45 (72) 99 07/15/19 07:00 67 12 119/49 (72) 100 07/15/19 06:00 98.1 67 21 124/49 (74) 100 07/15/19 05:00 64 16 125/47 (73) 99 07/15/19 04:00 Nasal Cannula 3.0 07/15/19 04:00 65 15 129/49 (75) 99 07/15/19 03:18 65 07/15/19 03:00 98.2 77 14 135/52 (79) 100 07/15/19 02:16 76 16 112/51 (71) 100 07/15/19 02:00 81 18 31/14 (20) 100 07/15/19 01:00 97.8 65 12 125/51 (75) 99 07/15/19 00:00 Nasal Cannula 3.0 07/15/19 00:00 61 13 118/51 (73) 100 07/14/19 23:11 70 07/14/19 23:00 59 14 115/49 (71) 100 07/14/19 22:00 97.6 75 13 133/56 (81) 100 07/14/19 21:00 63 14 119/51 (73) 100 07/14/19 20:00 75 14 111/53 (72) 98 07/14/19 20:00 Nasal Cannula 3.0 07/14/19 19:47 84 20 95 Nasal Cannula 2.0 28 07/14/19 19:19 81 3/15/20 19:00 98.6 82 15 111/53 (72) 98 07/14/19 18:00 70 13 141/56 (84) 99 07/14/19 17:00 97.9 81 12 127/57 (80) 100 07/14/19 16:00 75 07/14/19 16:00 73 12 106/49 (68) 99 07/14/19 16:00 Nasal Cannula 3.0 07/14/19 15:00 76 14 126/50 (75) 99 07/14/19 14:00 98.3 83 12 119/58 (78) 100 07/14/19 12:45 98.5 72 13 121/50 (73) 100 07/14/19 12:30 74 17 127/60 (82) 100 07/14/19 12:15 73 15 113/54 (73) 100 07/14/19 12:15 75 07/14/19 12:00 Nasal Cannula 3.0 07/14/19 12:00 73 14 112/56 (74) 100 07/14/19 11:45 78 14 126/51 (76) 100 07/14/19 11:30 78 12 119/55 (76) 100 07/14/19 11:15 78 13 120/49 (72) 100 07/14/19 11:00 89 16 137/52 (80) 100 07/14/19 10:47 82 14 124/69 (87) 98 Intake and Output 07/14/19 07/15/19 19:00 07:00 Intake Total 1569.583 ml 1128.7500 ml Output Total 1090 ml 1675 ml Balance 479.583 ml -546.2500 ml Intake Oral 0 ml IV Total 1069.583 ml 1128.7500 ml Blood Product 250 ml Hemodialysis 250 ml Output Urine Total 1090 ml 1675 ml # Voids 1 12 # Bowel Movements 2 Laboratory Tests 07/14/19 19:20: White Blood Count 6.1, Red Blood Count 2.81L, Hemoglobin 8.3L, Hematocrit 25.3#L , Mean Corpuscular Volume 90, Mean Corpuscular Hemoglobin 29.6, Mean Corpuscular Hemoglobin Concent 33.0, Red Cell Distribution Width 12.9, Platelet Count 230, Mean Platelet Volume 6.0L, Neutrophils (%) (Auto) 62.9, Lymphocytes ( %) (Auto) 22.6, Monocytes (%) (Auto) 7.6, Eosinophils (%) (Auto) 5.2H, Basophils (%) (Auto) 1.7, Prothrombin Time 10.2, Prothromb Time International Ratio 1.0, Activated Partial Thromboplast Time 23 07/15/19 04:15: White Blood Count 6.2, Red Blood Count 2.78L, Hemoglobin 8.6L, Hematocrit 24.5L , Mean Corpuscular Volume 88, Mean Corpuscular Hemoglobin 30.8, Mean Corpuscular Hemoglobin Concent 35.0, Red Cell Distribution Width 12.5, Platelet Count 225, Mean Platelet Volume 5.3L, Neutrophils (%) (Auto) 58.3, Lymphocytes ( %) (Auto) 24.2, Monocytes (%) (Auto) 9.3, Eosinophils (%) (Auto) 7.1H, Basophils (%) (Auto) 1.2, Sodium Level 141, Potassium Level 4.7, Chloride Level 107, Carbon Dioxide Level 22, Anion Gap 12, Blood Urea Nitrogen 26H, Creatinine 1.5H, Estimat Glomerular Filtration Rate 46.4, Glucose Level 254H, Calcium Level 8.1L, Magnesium Level 2.4 Height (Feet): 5 Height (Inches): 7.00 Weight (Pounds): 223 General Appearance: no apparent distress EENT: normal ENT inspection Neck: supple Cardiovascular: normal rate Respiratory/Chest: decreased breath sounds Abdomen: normal bowel sounds, non tender, soft Extremities: non-tender Shin Browne MD Jul 15, 2019 10:22
--- NOTE | 2019-07-15 10:39 | Cardiac Electrophysiology PN ---
Subjective Subjective [id number] Objective Last 24 Hour Vital Signs Date Time Temp Pulse Resp B/P (MAP) Pulse Ox O2 Delivery O2 Flow Rate FiO2 07/15/19 09:00 86 21 141/55 (83) 100 07/15/19 08:05 64 07/15/19 08:00 Nasal Cannula 3.0 07/15/19 08:00 97.9 66 15 126/45 (72) 99 07/15/19 07:00 67 12 119/49 (72) 100 07/15/19 06:00 98.1 67 21 124/49 (74) 100 07/15/19 05:00 64 16 125/47 (73) 99 07/15/19 04:00 Nasal Cannula 3.0 07/15/19 04:00 65 15 129/49 (75) 99 07/15/19 03:18 65 07/15/19 03:00 98.2 77 14 135/52 (79) 100 07/15/19 02:16 76 16 112/51 (71) 100 07/15/19 02:00 81 18 31/14 (20) 100 07/15/19 01:00 97.8 65 12 125/51 (75) 99 07/15/19 00:00 Nasal Cannula 3.0 07/15/19 00:00 61 13 118/51 (73) 100 07/14/19 23:11 70 07/14/19 23:00 59 14 115/49 (71) 100 07/14/19 22:00 97.6 75 13 133/56 (81) 100 07/14/19 21:00 63 14 119/51 (73) 100 07/14/19 20:00 75 14 111/53 (72) 98 07/14/19 20:00 Nasal Cannula 3.0 07/14/19 19:47 84 20 95 Nasal Cannula 2.0 28 07/14/19 19:19 81 07/14/19 19:00 98.6 82 15 111/53 (72) 98 07/14/19 18:00 70 13 141/56 (84) 99 07/14/19 17:00 97.9 81 12 127/57 (80) 100 07/14/19 16:00 75 07/14/19 16:00 73 12 106/49 (68) 99 07/14/19 16:00 Nasal Cannula 3.0 07/14/19 15:00 76 14 126/50 (75) 99 07/14/19 14:00 98.3 83 12 119/58 (78) 100 07/14/19 12:45 98.5 72 13 121/50 (73) 100 07/14/19 12:30 74 17 127/60 (82) 100 07/14/19 12:15 73 15 113/54 (73) 100 07/14/19 12:15 75 07/14/19 12:00 Nasal Cannula 3.0 07/14/19 12:00 73 14 112/56 (74) 100 07/14/19 11:45 78 14 126/51 (76) 100 07/14/19 11:30 78 12 119/55 (76) 100 07/14/19 11:15 78 13 120/49 (72) 100 07/14/19 11:00 89 16 137/52 (80) 100 07/14/19 10:47 82 14 124/69 (87) 98 Intake and Output 07/14/19 07/15/19 19:00 07:00 Intake Total 1569.583 ml 1128.7500 ml Output Total 1090 ml 1675 ml Balance 479.583 ml -546.2500 ml Intake Oral 0 ml IV Total 1069.583 ml 1128.7500 ml Blood Product 250 ml Hemodialysis 250 ml Output Urine Total 1090 ml 1675 ml # Voids 1 12 # Bowel Movements 2 Laboratory Tests Test 07/14/19 19:20 07/15/19 04:15 White Blood Count 6.1 K/UL (4.8-10.8) 6.2 K/UL (4.8-10.8) Red Blood Count 2.81 M/UL (4.70-6.10) L 2.78 M/UL (4.70-6.10) L Hemoglobin 8.3 G/DL (14.2-18.0) L 8.6 G/DL (14.2-18.0) L Hematocrit 25.3 % (42.0-52.0) #L 24.5 % (42.0-52.0) L Mean Corpuscular Volume 90 FL (80-99) 88 FL (80-99) Mean Corpuscular Hemoglobin 29.6 PG (27.0-31.0) 30.8 PG (27.0-31.0) Mean Corpuscular Hemoglobin Concent 33.0 G/DL (32.0-36.0) 35.0 G/DL (32.0-36.0) Red Cell Distribution Width 12.9 % (11.6-14.8) 12.5 % (11.6-14.8) Platelet Count 230 K/UL (150-450) 225 K/UL (150-450) Mean Platelet Volume 6.0 FL (6.5-10.1) L 5.3 FL (6.5-10.1) L Neutrophils (%) (Auto) 62.9 % (45.0-75.0) 58.3 % (45.0-75.0) Lymphocytes (%) (Auto) 22.6 % (20.0-45.0) 24.2 % (20.0-45.0) Monocytes (%) (Auto) 7.6 % (1.0-10.0) 9.3 % (1.0-10.0) Eosinophils (%) (Auto) 5.2 % (0.0-3.0) H 7.1 % (0.0-3.0) H Basophils (%) (Auto) 1.7 % (0.0-2.0) 1.2 % (0.0-2.0) Prothrombin Time 10.2 SEC (9.30-11.50) Prothromb Time International Ratio 1.0 (0.9-1.1) Activated Partial Thromboplast Time 23 SEC (23-33) Sodium Level 141 MMOL/L (136-145) Potassium Level 4.7 MMOL/L (3.5-5.1) Chloride Level 107 MMOL/L (98-107) Carbon Dioxide Level 22 MMOL/L (21-32) Anion Gap 12 mmol/L (5-15) Blood Urea Nitrogen 26 mg/dL (7-18) H Creatinine 1.5 MG/DL (0.55-1.30) H Estimat Glomerular Filtration Rate 46.4 mL/min (>60) Glucose Level 254 MG/DL (74-106) H Calcium Level 8.1 MG/DL (8.5-10.1) L Magnesium Level 2.4 MG/DL (1.8-2.4) Bernardo Stein MD Jul 15, 2019:39
--- NOTE | 2019-07-15 13:29 | Diagnostic Imaging Report ---
Indication: Leg pain and edema Technique: Grayscale and duplex images of the bilateral lower extremity veins Comparison: None Findings: Bilaterally, grayscale and duplex images demonstrate no evidence of intraluminal thrombus. Normal phasic Doppler waveforms, demonstrating normal augmentation response and no evidence of valvular insufficiency. Greater saphenous vein(s) and tibial veins are patent. Normal compressibility. Impression: Negative for evidence of lower extremity deep venous thrombosis bilaterally
--- NOTE | 2019-07-15 13:45 | Consultation ---
DATE OF CONSULTATION: 07/15/2019 CARDIOLOGY CONSULTATION CONSULTING PHYSICIAN: Bernardo Stein M.D. REASON FOR CONSULTATION: Tachycardia and atrial flutter. HISTORY OF PRESENT ILLNESS: The patient is a 68-year-old gentleman with history of hypertension, diabetes, morbid obesity, history of gastrointestinal bleed, and renal failure, who was admitted to the hospital for bloody emesis. The patient was admitted and underwent emergency colonoscopy and EGD as well. The patient yesterday had episode of atrial flutter with rapid ventricular response and a Cardiology consultation was obtained for further evaluation and management. His hemoglobin was 7.1. REVIEW OF SYSTEMS: Negative other than what was mentioned in the history of present illness. PAST MEDICAL HISTORY: As mentioned above. FAMILY HISTORY: Noncontributory. SOCIAL HISTORY: Does not smoke or drink alcohol. PHYSICAL EXAMINATION: VITAL SIGNS: Show blood pressure of 141/55, pulse is 86, respirations 20, and he is afebrile. HEAD AND NECK: Shows no JVD. LUNGS: Have decreased breath sounds. CARDIOVASCULAR: Shows S1 and S2 with no gallop or murmur. ABDOMEN: Obese. EXTREMITIES: A 1+ pitting edema. DIAGNOSTIC DATA: His telemetry strips from July 14, 2019 at 23:11 showed atrial flutter with 4:1 conduction. Currently, the patient is in sinus rhythm. His EKG on July 09, 2019 showed sinus tachycardia with rate of 103. ASSESSMENT/PLAN: 1. Transient atrial flutter was likely in the setting of acute GI bleed. Currently, the patient is converted to sinus rhythm. I will add metoprolol 25 mg b.i.d. for further evaluation. 2. Hypertension. Start metoprolol 25 b.i.d. 3. Acute GI bleed. Hemoglobin was down to 6.8, currently is 8.6. The patient already underwent EGD. 4. Renal failure. Creatinine was 1.7, currently is 1.5. In the setting of tachycardia and anemia and multiple risk factors, completely rule out [place] protocol, get an echocardiogram. 5. Hyperlipidemia, on Lipitor. 6. hypertrophy on Flomax. 7. Psychiatric disorder. Further evaluation [facility]. Thank you very much for allowing me to participate in the care of this patient. Please do not hesitate to contact me for any questions regarding my evaluation. Bernardo Stein M.D. DR: KEITH JOB#: [id number] CC:
--- NOTE | 2019-07-15 13:51 | Nephrology Progress Note ---
Assessment/Plan Problem List: (1) Renal failure (ARF), acute on chronic (2) Dehydration (3) Gastrointestinal hemorrhage (4) Diabetes mellitus (5) Anemia (6) Electrolyte imbalance Assessment Upper GI bleed and coffee-ground emesis etiology unclear Acute on chronic renal failure Dehydration Electrolyte imbalance. Hyponatremia Anemia worsened since yesterday Obesity Diabetes and history of diabetic nephropathy significant elevation of hemoglobin A1c Plan Hgb stable Endoscopy results noted And another upper endoscopy today showing active duodenal ulcer transfusion done July 10 and more transfusion will be done today Magnesium sulfate IV supplement Keep n.p.o. on Protonix drip Renal parameters improved IV hydration Keep the blood sugar in check with sliding scale insulin Urine studies Monitor renal parameters Keep the blood pressure and blood sugar in check Anemia work-up Continue per GI advice Subjective ROS Limited/Unobtainable: No Constitutional: Reports: malaise Objective Objective Last 24 Hour Vital Signs Date Time Temp Pulse Resp B/P (MAP) Pulse Ox O2 Delivery O2 Flow Rate FiO2 07/15/19 12:00 Nasal Cannula 3.0 07/15/19 11:58 69 07/15/19 11:47 68 123/56 07/15/19 11:00 70 14 123/56 (78) 100 07/15/19 10:00 74 18 138/49 (78) 100 07/15/19 09:00 86 21 141/55 (83) 100 07/15/19 08:05 64 07/15/19 08:00 Nasal Cannula 3.0 07/15/19 08:00 97.9 66 15 126/45 (72) 99 07/15/19 07:00 67 12 119/49 (72) 100 07/15/19 06:00 98.1 67 21 124/49 (74) 100 07/15/19 05:00 64 16 125/47 (73) 99 07/15/19 04:00 Nasal Cannula 3.0 07/15/19 04:00 65 15 129/49 (75) 99 07/15/19 03:18 65 07/15/19 03:00 98.2 77 14 135/52 (79) 100 07/15/19 02:16 76 16 112/51 (71) 100 07/15/19 02:00 81 18 31/14 (20) 100 07/15/19 01:00 97.8 65 12 125/51 (75) 99 07/15/19 00:00 Nasal Cannula 3.0 07/15/19 00:00 61 13 118/51 (73) 100 07/14/19 23:11 70 07/14/19 23:00 59 14 115/49 (71) 100 07/14/19 22:00 97.6 75 13 133/56 (81) 100 07/14/19 21:00 63 14 119/51 (73) 100 07/14/19 20:00 75 14 111/53 (72) 98 07/14/19 20:00 Nasal Cannula 3.0 07/14/19 19:47 84 20 95 Nasal Cannula 2.0 28 07/14/19 19:19 81 07/14/19 19:00 98.6 82 15 111/53 (72) 98 07/14/19 18:00 70 13 141/56 (84) 99 07/14/19 17:00 97.9 81 12 127/57 (80) 100 07/14/19 16:00 75 07/14/19 16:00 73 12 106/49 (68) 99 07/14/19 16:00 Nasal Cannula 3.0 07/14/19 15:00 76 14 126/50 (75) 99 07/14/19 14:00 98.3 83 12 119/58 (78) 100 Intake and Output 07/14/19 07/15/19 19:00 07:00 Intake Total 1569.583 ml 1128.7500 ml Output Total 1090 ml 1675 ml Balance 479.583 ml -546.2500 ml Intake Oral 0 ml IV Total 1069.583 ml 1128.7500 ml Blood Product 250 ml Hemodialysis 250 ml Output Urine Total 1090 ml 1675 ml # Voids 1 12 # Bowel Movements 2 Laboratory Tests 07/14/19 19:20: White Blood Count 6.1, Red Blood Count 2.81L, Hemoglobin 8.3L, Hematocrit 25.3#L , Mean Corpuscular Volume 90, Mean Corpuscular Hemoglobin 29.6, Mean Corpuscular Hemoglobin Concent 33.0, Red Cell Distribution Width 12.9, Platelet Count 230, Mean Platelet Volume 6.0L, Neutrophils (%) (Auto) 62.9, Lymphocytes ( %) (Auto) 22.6, Monocytes (%) (Auto) 7.6, Eosinophils (%) (Auto) 5.2H, Basophils (%) (Auto) 1.7, Prothrombin Time 10.2, Prothromb Time International Ratio 1.0, Activated Partial Thromboplast Time 23 07/15/19 04:15: White Blood Count 6.2, Red Blood Count 2.78L, Hemoglobin 8.6L, Hematocrit 24.5L , Mean Corpuscular Volume 88, Mean Corpuscular Hemoglobin 30.8, Mean Corpuscular Hemoglobin Concent 35.0, Red Cell Distribution Width 12.5, Platelet Count 225, Mean Platelet Volume 5.3L, Neutrophils (%) (Auto) 58.3, Lymphocytes ( %) (Auto) 24.2, Monocytes (%) (Auto) 9.3, Eosinophils (%) (Auto) 7.1H, Basophils (%) (Auto) 1.2, Sodium Level 141, Potassium Level 4.7, Chloride Level 107, Carbon Dioxide Level 22, Anion Gap 12, Blood Urea Nitrogen 26H, Creatinine 1.5H, Estimat Glomerular Filtration Rate 46.4, Glucose Level 254H, Calcium Level 8.1L, Magnesium Level 2.4 07/15/19 11:00: Troponin I 0.008 Height (Feet): 5 Height (Inches): 7.00 Weight (Pounds): 223 General Appearance: no apparent distress, lethargic Cardiovascular: normal rate Respiratory/Chest: decreased breath sounds Abdomen: soft Objective No change Dawson Doty MD Jul 15, 2019 13:51
--- NOTE | 2019-07-15 15:52 | Surgery Progress Note ---
Surgery Progress Note Subjective Symptoms: improved, tolerating diet, passing flatus Objective Last 24 Hour Vital Signs Date Time Temp Pulse Resp B/P (MAP) Pulse Ox O2 Delivery O2 Flow Rate FiO2 07/15/19 14:00 89 11 125/47 (73) 98 07/15/19 13:00 79 21 134/68 (90) 100 07/15/19 12:00 Nasal Cannula 3.0 07/15/19 12:00 98.0 69 19 124/51 (75) 100 07/15/19 11:58 69 07/15/19 11:47 68 123/56 07/15/19 11:00 70 14 123/56 (78) 100 07/15/19 10:00 74 18 138/49 (78) 100 07/15/19 09:00 86 21 141/55 (83) 100 07/15/19 08:05 64 07/15/19 08:00 Nasal Cannula 3.0 07/15/19 08:00 97.9 66 15 126/45 (72) 99 07/15/19 07:00 67 12 119/49 (72) 100 07/15/19 06:00 98.1 67 21 124/49 (74) 100 07/15/19 05:00 64 16 125/47 (73) 99 07/15/19 04:00 Nasal Cannula 3.0 07/15/19 04:00 65 15 129/49 (75) 99 07/15/19 03:18 65 07/15/19 03:00 98.2 77 14 135/52 (79) 100 07/15/19 02:16 76 16 112/51 (71) 100 07/15/19 02:00 81 18 31/14 (20) 100 07/15/19 01:00 97.8 65 12 125/51 (75) 99 07/15/19 00:00 Nasal Cannula 3.0 07/15/19 00:00 61 13 118/51 (73) 100 07/14/19 23:11 70 07/14/19 23:00 59 14 115/49 (71) 100 07/14/19 22:00 97.6 75 13 133/56 (81) 100 07/14/19 21:00 63 14 119/51 (73) 100 07/14/19 20:00 75 14 111/53 (72) 98 07/14/19 20:00 Nasal Cannula 3.0 07/14/19 19:47 84 20 95 Nasal Cannula 2.0 28 07/14/19 19:19 81 07/14/19 19:00 98.6 82 15 111/53 (72) 98 07/14/19 18:00 70 13 141/56 (84) 99 07/14/19 17:00 97.9 81 12 127/57 (80) 100 07/14/19 16:00 75 07/14/19 16:00 73 12 106/49 (68) 99 07/14/19 16:00 Nasal Cannula 3.0 I&O Intake and Output 07/14/19 07/15/19 19:00 07:00 Intake Total 1569.583 ml 1128.7500 ml Output Total 1090 ml 1675 ml Balance 479.583 ml -546.2500 ml Intake Oral 0 ml IV Total 1069.583 ml 1128.7500 ml Blood Product 250 ml Hemodialysis 250 ml Output Urine Total 1090 ml 1675 ml # Voids 1 12 # Bowel Movements 2 Dressing: dry Wound: clean Cardiovascular: RSR Respiratory: clear, decreased breath sounds Abdomen: soft, non-tender, present bowel sounds Extremities: edema, no cyanosis Laboratory Tests Test 07/14/19 19:20 07/15/19 04:15 07/15/19 11:00 White Blood Count 6.1 K/UL (4.8-10.8) 6.2 K/UL (4.8-10.8) Red Blood Count 2.81 M/UL (4.70-6.10) L 2.78 M/UL (4.70-6.10) L Hemoglobin 8.3 G/DL (14.2-18.0) L 8.6 G/DL (14.2-18.0) L Hematocrit 25.3 % (42.0-52.0) #L 24.5 % (42.0-52.0) L Mean Corpuscular Volume 90 FL (80-99) 88 FL (80-99) Mean Corpuscular Hemoglobin 29.6 PG (27.0-31.0) 30.8 PG (27.0-31.0) Mean Corpuscular Hemoglobin Concent 33.0 G/DL (32.0-36.0) 35.0 G/DL (32.0-36.0) Red Cell Distribution Width 12.9 % (11.6-14.8) 12.5 % (11.6-14.8) Platelet Count 230 K/UL (150-450) 225 K/UL (150-450) Mean Platelet Volume 6.0 FL (6.5-10.1) L 5.3 FL (6.5-10.1) L Neutrophils (%) (Auto) 62.9 % (45.0-75.0) 58.3 % (45.0-75.0) Lymphocytes (%) (Auto) 22.6 % (20.0-45.0) 24.2 % (20.0-45.0) Monocytes (%) (Auto) 7.6 % (1.0-10.0) 9.3 % (1.0-10.0) Eosinophils (%) (Auto) 5.2 % (0.0-3.0) H 7.1 % (0.0-3.0) H Basophils (%) (Auto) 1.7 % (0.0-2.0) 1.2 % (0.0-2.0) Prothrombin Time 10.2 SEC (9.30-11.50) Prothromb Time International Ratio 1.0 (0.9-1.1) Activated Partial Thromboplast Time 23 SEC (23-33) Sodium Level 141 MMOL/L (136-145) Potassium Level 4.7 MMOL/L (3.5-5.1) Chloride Level 107 MMOL/L (98-107) Carbon Dioxide Level 22 MMOL/L (21-32) Anion Gap 12 mmol/L (5-15) Blood Urea Nitrogen 26 mg/dL (7-18) H Creatinine 1.5 MG/DL (0.55-1.30) H Estimat Glomerular Filtration Rate 46.4 mL/min (>60) Glucose Level 254 MG/DL (74-106) H Calcium Level 8.1 MG/DL (8.5-10.1) L Magnesium Level 2.4 MG/DL (1.8-2.4) Troponin I 0.008 ng/mL (0.000-0.056) Plan Problems: (1) Decubitus skin ulcer Assessment & Plan: Patient presented on admission with full thickness stage 4 pressure injury L buttocks (L)1.1cm x (W)1.5cm x (D)0.3cm. Base of wound is sapphire and moist. Borders are macerated .Surrounding non-blanching erythema without induration. Pt complained of pain when minimally palpated. Base of scrotum is erythematous with small area of shearing noted. Medial boggy with non-blanching erythema. Pt yells when minimally palpated. (L) 5.5cm x (W)5cm. Historical scar L heel. L heel is boggy but blanchable. Tx.Plan: Cleanse L buttocks with Saline. Apply TheraHoney. Apply Moisture Barrier Paste periwound. Cover with Optifoam Drsg Daily and prn. Apply Moisture Barrier Paste to scrotum with each Incontinence care. Apply Cavilon Skin Barrier to both heels. Cover each heel with Optifoam drsg. Change every 7 days and prn. Reposition at least every 2hours or as tolerated. Off-load heels with pillow. APM/IRIS Mattress overlay. (2) Gastrointestinal hemorrhage Assessment & Plan: Patient with coffee-ground emesis possible GI bleed severe anemia requiring transfusion Currently no active bleeding noted Agree with GI recommend endoscopy/colonoscopy for evaluation PPI N.p.o. IV fluids Trend labs We will follow with recommendations as work-up completed thank you for let me participate in patient's care repeat egd at bedside in ICU with possible etiology identified and hemostasis will monitor trend h/h There is a small left inguinal hernia which contains only fat. There are colonic diverticula. There is considerable retained stool within the proximal sigmoid colon. There is no evidence of acute diverticulitis. The appendix is normal. No small bowel distention. No free or loculated intraperitoneal gas or fluid is evident. The stomach is mildly distended with gas. No downstream obstructive lesion is demonstrated, however. The duodenum and distal esophagus are unremarkable. Lack of IV contrast limits assessment of solid organs. The liver is grossly unremarkable. The gallbladder contains gallstones. No biliary ductal dilatation. The pancreas is unremarkable. The spleen demonstrates an accessory splenule, is otherwise unremarkable. The adrenals are unremarkable. The kidneys demonstrate bilateral nonspecific perinephric fat stranding. No definite focal abnormality. No hydronephrosis or hydroureter or renal or ureteral calculi demonstrated. The kidneys are somewhat atrophic. The bladder is mildly distended. No pelvic mass demonstrated. There are some prominent iliac chain nodes bilaterally, largest on the left measuring up to 19 mm long axis dimension. There are also prominent retroperitoneal nodes, largest measuring 2.4 cm long axis dimension, 1.1 cm short axis dimension. No pelvic mass. 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 There is considerable heterotopic ossification of the left hip region. Some surgical scarring is seen in the left hip region soft tissues. There are degenerative changes of the lumbar spine. The included lung bases demonstrate posterior dependent atelectatic changes. Impression: Limited assessment of the GI tract, due to lack of enteric contrast demonstration Mild gastric distention without evidence of downstream obstructive lesion. No acute process otherwise. Cholelithiasis Mildly distended bladder Colonic diverticulosis. No evidence of diverticulitis Nonspecific bilateral perinephric fat stranding Borderline bilateral iliac and retroperitoneal lymphadenopathy, of uncertain significance. Could be baseline for this patient versus reactive, less likely indicative of metastatic neoplasm or lymphoproliferative disorder (3) Morbid obesity Good Love Jul 15, 2019 15:52
[2019-07-15] MEDS: Tamsulosin 0.4mg cap ORAL SCH (20:47)
[2019-07-15] MEDS: Sennosides 8.6mg tab ORAL SCH (20:47)
[2019-07-16] VITALS (17 sets, daily range): BP systolic 107–144; BP diastolic 42–69
[2019-07-16] MEDS: Pantoprazole 80 MG in NS 250 ML IV SCH (01:19)
[2019-07-16 05:24] LABS: HEMATOCRIT 22.1 % (42.0-52.0); HEMOGLOBIN 7.8 G/DL (14.2-18.0); MEAN CORPUSCULAR VOLUME 88 FL (80-99); PLATELET COUNT 231 K/UL (150-450); RED BLOOD COUNT 2.51 M/UL (4.70-6.10); RED CELL DISTRIBUTION WIDTH 12.7 % (11.6-14.8); WHITE BLOOD COUNT 5.9 K/UL (4.8-10.8)
[2019-07-16 05:33] LABS: ANION GAP 6 mmol/L (5-15); BLOOD UREA NITROGEN 28 mg/dL (7-18); CALCIUM 8.2 MG/DL (8.5-10.1); CARBON DIOXIDE 27 MMOL/L (21-32); CHLORIDE 105 MMOL/L (98-107); CREATININE 1.7 MG/DL (0.55-1.30); SODIUM 138 MMOL/L (136-145)
[2019-07-16] MEDS: NovoLOG Insulin Flexpen SUBQ SCH ×4 (05:44→20:48)
[2019-07-16] MEDS: Bisacodyl EC 5mg tab ORAL SCH (08:57)
[2019-07-16] MEDS: Sennosides 8.6mg tab ORAL SCH ×2 (08:57→20:58)
--- NOTE | 2019-07-16 09:31 | General Progress Note ---
Assessment/Plan Status: unchanged Assessment/Plan: gib gastric ulcer duodenal ulcer stable labs today no obvious bleeding per nurses ppi will change to BID dc IVF fu cbc Subjective ROS Limited/Unobtainable: Yes Allergies: Coded Allergies: ASPIRIN (Verified Allergy, Unknown, 11/22/17) PENICILLINS (Verified Allergy, Unknown, 11/22/17) SULFAMETHOXAZOLE (Verified Allergy, Unknown, 11/22/17) TRIMETHOPRIM (Verified Allergy, Unknown, 11/22/17) Objective Last 24 Hour Vital Signs Date Time Temp Pulse Resp B/P (MAP) Pulse Ox O2 Delivery O2 Flow Rate FiO2 07/16/19 08:56 58 123/46 07/16/19 08:30 58 12 123/46 (71) 99 07/16/19 08:00 84 11 144/49 (80) 100 07/16/19 08:00 Nasal Cannula 2.0 07/16/19 07:00 67 13 132/55 (80) 98 07/16/19 06:00 64 18 117/45 (69) 98 07/16/19 05:00 64 18 134/47 (76) 98 07/16/19 04:00 62 07/16/19 04:00 Nasal Cannula 2.0 07/16/19 04:00 98.3 67 19 121/43 (69) 99 07/16/19 03:00 63 18 119/43 (68) 99 07/16/19 02:00 65 19 107/42 (63) 98 07/16/19 01:00 65 19 112/44 (66) 99 07/16/19 00:00 Nasal Cannula 2.0 07/16/19 00:00 65 07/16/19 00:00 98.6 64 18 114/48 (70) 100 07/15/19 23:00 66 19 117/45 (69) 99 07/15/19 22:00 67 18 114/44 (67) 98 07/15/19 21:00 73 19 118/46 (70) 98 07/15/19 20:47 80 127/48 07/15/19 20:00 Room Air 07/15/19 20:00 84 07/15/19 20:00 98.0 79 19 127/48 (74) 99 07/15/19 19:00 88 18 128/54 (78) 100 07/15/19 18:00 89 15 154/64 (94) 100 07/15/19 17:00 87 17 136/74 (94) 100 07/15/19 16:00 98.2 84 12 122/48 (72) 98 07/15/19 16:00 Room Air 07/15/19 15:21 86 07/15/19 15:00 85 14 121/44 (69) 96 07/15/19 14:00 89 11 125/47 (73) 98 07/15/19 13:00 79 21 134/68 (90) 100 07/15/19 12:00 Nasal Cannula 3.0 07/15/19 12:00 98.0 69 19 124/51 (75) 100 07/15/19 11:58 69 07/15/19 11:47 68 123/56 07/15/19 11:00 70 14 123/56 (78) 100 07/15/19 10:00 74 18 138/49 (78) 100 Intake and Output 07/15/19 07/16/19 19:00 07:00 Intake Total 1535 ml 1110.83 ml Output Total 1430 ml 1305 ml Balance 105 ml -194.17 ml Intake Oral 360 ml IV Total 1175 ml 1110.83 ml Output Urine Total 1430 ml 1305 ml # Bowel Movements 1 Laboratory Tests 07/15/19 11:00: Troponin I 0.008 07/15/19 19:50: Troponin I 0.000 07/16/19 02:50: Troponin I 0.000, White Blood Count 5.9, Red Blood Count 2.51L, Hemoglobin 7.8L , Hematocrit 22.1L, Mean Corpuscular Volume 88, Mean Corpuscular Hemoglobin 31.0 , Mean Corpuscular Hemoglobin Concent 35.2, Red Cell Distribution Width 12.7, Platelet Count 231, Mean Platelet Volume 5.4L, Neutrophils (%) (Auto) , Lymphocytes (%) (Auto) , Monocytes (%) (Auto) , Eosinophils (%) (Auto) , Basophils (%) (Auto) , Differential Total Cells Counted 100, Neutrophils % ( Manual) 65, Lymphocytes % (Manual) 18L, Monocytes % (Manual) 11H, Eosinophils % (Manual) 6H, Basophils % (Manual) 0, Band Neutrophils 0, Platelet Estimate Adequate, Platelet Morphology Normal, Hypochromasia 1+, Sodium Level 138, Potassium Level 4.0, Chloride Level 105, Carbon Dioxide Level 27, Anion Gap 6, Blood Urea Nitrogen 28H, Creatinine 1.7H, Estimat Glomerular Filtration Rate 40.2, Glucose Level 310H, Calcium Level 8.2L Height (Feet): 5 Height (Inches): 7.00 Weight (Pounds): 220 General Appearance: alert EENT: PERRL/EOMI Neck: supple Cardiovascular: normal rate Respiratory/Chest: decreased breath sounds Abdomen: normal bowel sounds, non tender, soft Extremities: non-tender Shin Browne MD Jul 16, 2019 09:31
[2019-07-16] MEDS ORDERED: Sennosides 8.6mg tab ORAL PRN (11:30)
[2019-07-16] MEDS ORDERED: HydrALAZINE 25mg tab ORAL PRN (11:30)
[2019-07-16] MEDS ORDERED: Acetaminophen 500mg (ES) tab ORAL PRN (12:15)
--- NOTE | 2019-07-16 12:19 | Nephrology Progress Note ---
Assessment/Plan Problem List: (1) Renal failure (ARF), acute on chronic (2) Dehydration (3) Gastrointestinal hemorrhage (4) Diabetes mellitus (5) Anemia (6) Electrolyte imbalance Assessment Upper GI bleed and coffee-ground emesis etiology unclear Acute on chronic renal failure Dehydration Electrolyte imbalance. Hyponatremia Anemia worsened since yesterday Obesity Diabetes and history of diabetic nephropathy significant elevation of hemoglobin A1c Plan Creatinine remains stable at 1.7 today Hgb down to 7.8 today Endoscopy results noted And another upper endoscopy today showing active duodenal ulcer transfusion done July 10 and more transfusion will be done today Magnesium sulfate IV supplement Keep n.p.o. on Protonix drip Renal parameters improved IV hydration Keep the blood sugar in check with sliding scale insulin Urine studies Monitor renal parameters Keep the blood pressure and blood sugar in check Anemia work-up Continue per GI advice Subjective ROS Limited/Unobtainable: No Constitutional: Reports: malaise, weakness Objective Objective Last 24 Hour Vital Signs Date Time Temp Pulse Resp B/P (MAP) Pulse Ox O2 Delivery O2 Flow Rate FiO2 07/16/19 11:00 78 12 143/56 (85) 99 07/16/19 10:00 82 16 119/49 (72) 98 07/16/19 09:30 79 20 133/44 (73) 97 07/16/19 09:00 98.2 62 16 130/69 (89) 99 07/16/19 08:56 58 123/46 07/16/19 08:30 58 12 123/46 (71) 99 07/16/19 08:00 84 11 144/49 (80) 100 07/16/19 08:00 81 07/16/19 08:00 Nasal Cannula 2.0 07/16/19 07:00 67 13 132/55 (80) 98 07/16/19 06:00 64 18 117/45 (69) 98 07/16/19 05:00 64 18 134/47 (76) 98 07/16/19 04:00 62 07/16/19 04:00 Nasal Cannula 2.0 07/16/19 04:00 98.3 67 19 121/43 (69) 99 07/16/19 03:00 63 18 119/43 (68) 99 07/16/19 02:00 65 19 107/42 (63) 98 07/16/19 01:00 65 19 112/44 (66) 99 07/16/19 00:00 Nasal Cannula 2.0 07/16/19 00:00 65 07/16/19 00:00 98.6 64 18 114/48 (70) 100 07/15/19 23:00 66 19 117/45 (69) 99 07/15/19 22:00 67 18 114/44 (67) 98 07/15/19 21:00 73 19 118/46 (70) 98 07/15/19 20:47 80 127/48 07/15/19 20:00 Room Air 07/15/19 20:00 84 07/15/19 20:00 98.0 79 19 127/48 (74) 99 07/15/19 19:00 88 18 128/54 (78) 100 07/15/19 18:00 89 15 154/64 (94) 100 07/15/19 17:00 87 17 136/74 (94) 100 07/15/19 16:00 98.2 84 12 122/48 (72) 98 07/15/19 16:00 Room Air 07/15/19 15:21 86 07/15/19 15:00 85 14 121/44 (69) 96 07/15/19 14:00 89 11 125/47 (73) 98 07/15/19 13:00 79 21 134/68 (90) 100 Intake and Output 07/15/19 07/16/19 19:00 07:00 Intake Total 1535 ml 1110.83 ml Output Total 1430 ml 1305 ml Balance 105 ml -194.17 ml Intake Oral 360 ml IV Total 1175 ml 1110.83 ml Output Urine Total 1430 ml 1305 ml # Bowel Movements 1 Current Medications Medications (Trade) Dose Ordered Sig/Jayden Route PRN Reason Start Time Stop Time Status Last Admin Dose Admin Acetaminophen (Tylenol) 650 mg Q4H PRN ORAL Mild Pain/Temp > 100.5 07/16/19 12:15 08/08/19 04:14 Atorvastatin Calcium (Lipitor) 10 mg BEDTIME ORAL 07/16/19 21:00 08/08/19 20:59 Bisacodyl (Dulcolax) 10 mg DAILY ORAL 07/17/19 09:00 08/09/19 08:59 Dextrose (Dextrose 50%) 25 ml Q30M PRN IV Hypoglycemia 07/16/19 11:30 08/08/19 19:59 Dextrose (Dextrose 50%) 50 ml Q30M PRN IV Hypoglycemia 07/16/19 11:30 08/08/19 19:59 Escitalopram Oxalate (Lexapro) 10 mg DAILY ORAL 07/17/19 09:00 08/09/19 08:59 Gabapentin (Neurontin) 400 mg THREE TIMES A DAY ORAL 07/16/19 13:00 08/09/19 08:59 07/16/19 14:24 Hydralazine HCl (Apresoline) 25 mg Q4H PRN ORAL bp over 160 syst 07/16/19 11:30 08/08/19 11:29 Insulin Aspart (NovoLOG) BEFORE MEALS AND HS SUBQ 07/16/19 11:30 08/08/19 20:59 07/16/19 17:34 Metoprolol Tartrate (Lopressor) 25 mg EVERY 12 HOURS ORAL 07/16/19 21:00 08/14/19 10:59 Ondansetron HCl (Zofran) 4 mg Q6H PRN IVP Nausea & Vomiting 07/16/19 11:30 08/12/19 17:24 Ondansetron HCl (Zofran) 4 mg Q6H PRN ORAL Nausea & Vomiting 07/16/19 11:30 08/08/19 11:29 Pantoprazole (Protonix) 40 mg EVERY 12 HOURS IVP 07/16/19 21:00 08/15/19 20:59 Polyethylene Glycol (Miralax) 17 gm BEDTIME ORAL 07/16/19 21:00 08/15/19 20:59 Risperidone (RisperDAL) 2 mg DAILY ORAL 07/17/19 09:00 08/24/19 08:59 Sennosides (Senokot) 8.6 mg EVERY 12 HOURS ORAL 07/16/19 21:00 08/14/19 20:59 Sennosides (Senokot) 8.6 mg Q6H PRN ORAL Constipation 07/16/19 11:30 08/08/19 11:29 Tamsulosin HCl (Flomax) 0.4 mg QHS ORAL 07/16/19 21:00 08/08/19 20:59 Temazepam (Restoril) 15 mg BEDTIME PRN ORAL Insomnia 07/16/19 21:00 07/23/19 18:14 Laboratory Tests 07/15/19 19:50: Troponin I 0.000 07/16/19 02:50: Troponin I 0.000, White Blood Count 5.9, Red Blood Count 2.51L, Hemoglobin 7.8L , Hematocrit 22.1L, Mean Corpuscular Volume 88, Mean Corpuscular Hemoglobin 31.0 , Mean Corpuscular Hemoglobin Concent 35.2, Red Cell Distribution Width 12.7, Platelet Count 231, Mean Platelet Volume 5.4L, Neutrophils (%) (Auto) , Lymphocytes (%) (Auto) , Monocytes (%) (Auto) , Eosinophils (%) (Auto) , Basophils (%) (Auto) , Differential Total Cells Counted 100, Neutrophils % ( Manual) 65, Lymphocytes % (Manual) 18L, Monocytes % (Manual) 11H, Eosinophils % (Manual) 6H, Basophils % (Manual) 0, Band Neutrophils 0, Platelet Estimate Adequate, Platelet Morphology Normal, Hypochromasia 1+, Sodium Level 138, Potassium Level 4.0, Chloride Level 105, Carbon Dioxide Level 27, Anion Gap 6, Blood Urea Nitrogen 28H, Creatinine 1.7H, Estimat Glomerular Filtration Rate 40.2, Glucose Level 310H, Calcium Level 8.2L Height (Feet): 5 Height (Inches): 7.00 Weight (Pounds): 220 General Appearance: no apparent distress Cardiovascular: normal rate Respiratory/Chest: decreased breath sounds Abdomen: distended Objective No change Dawson Doty MD Jul 16, 2019 12:19
--- NOTE | 2019-07-16 12:51 | Cardiac Electrophysiology PN ---
Assessment/Plan Assessment/Plan 1. Transient atrial flutter was likely in the setting of acute GI bleed. Converted to sinus rhythm. On Metoprolol 25 mg b.i.d. 2. Hypertension. On metoprolol 25 b.i.d. 3. Acute GI bleed. Hemoglobin was down to 6.8, currently is 8.6. The patient already underwent EGD. 4. Renal failure. Creatinine was 1.7, currently is 1.5. Completely ruled out for [place]. Echocardiogram pending 5. Hyperlipidemia, on Lipitor. 6. BPH on Flomax. 7. Psychiatric disorder. Subjective Subjective Transferred to SDU. No CP or SOB Objective Last 24 Hour Vital Signs Date Time Temp Pulse Resp B/P (MAP) Pulse Ox O2 Delivery O2 Flow Rate FiO2 07/16/19 12:43 97 Nasal Cannula 2.0 28 07/16/19 11:00 78 12 143/56 (85) 99 07/16/19 10:00 82 16 119/49 (72) 98 07/16/19 09:30 79 20 133/44 (73) 97 07/16/19 09:00 98.2 62 16 130/69 (89) 99 07/16/19 08:56 58 123/46 07/16/19 08:30 58 12 123/46 (71) 99 07/16/19 08:00 84 11 144/49 (80) 100 07/16/19 08:00 81 07/16/19 08:00 Nasal Cannula 2.0 07/16/19 07:00 67 13 132/55 (80) 98 07/16/19 06:00 64 18 117/45 (69) 98 07/16/19 05:00 64 18 134/47 (76) 98 07/16/19 04:00 62 07/16/19 04:00 Nasal Cannula 2.0 07/16/19 04:00 98.3 67 19 121/43 (69) 99 07/16/19 03:00 63 18 119/43 (68) 99 07/16/19 02:00 65 19 107/42 (63) 98 07/16/19 01:00 65 19 112/44 (66) 99 07/16/19 00:00 Nasal Cannula 2.0 07/16/19 00:00 65 07/16/19 00:00 98.6 64 18 114/48 (70) 100 07/15/19 23:00 66 19 117/45 (69) 99 07/15/19 22:00 67 18 114/44 (67) 98 07/15/19 21:00 73 19 118/46 (70) 98 07/15/19 20:47 80 127/48 07/15/19 20:00 Room Air 07/15/19 20:00 84 07/15/19 20:00 98.0 79 19 127/48 (74) 99 07/15/19 19:00 88 18 128/54 (78) 100 07/15/19 18:00 89 15 154/64 (94) 100 07/15/19 17:00 87 17 136/74 (94) 100 07/15/19 16:00 98.2 84 12 122/48 (72) 98 07/15/19 16:00 Room Air 07/15/19 15:21 86 07/15/19 15:00 85 14 121/44 (69) 96 07/15/19 14:00 89 11 125/47 (73) 98 07/15/19 13:00 79 21 134/68 (90) 100 Intake and Output 07/15/19 07/16/19 19:00 07:00 Intake Total 1535 ml 1110.83 ml Output Total 1430 ml 1305 ml Balance 105 ml -194.17 ml Intake Oral 360 ml IV Total 1175 ml 1110.83 ml Output Urine Total 1430 ml 1305 ml # Bowel Movements 1 Laboratory Tests Test 07/15/19 19:50 07/16/19 02:50 Troponin I 0.000 ng/mL (0.000-0.056) 0.000 ng/mL (0.000-0.056) White Blood Count 5.9 K/UL (4.8-10.8) Red Blood Count 2.51 M/UL (4.70-6.10) L Hemoglobin 7.8 G/DL (14.2-18.0) L Hematocrit 22.1 % (42.0-52.0) L Mean Corpuscular Volume 88 FL (80-99) Mean Corpuscular Hemoglobin 31.0 PG (27.0-31.0) Mean Corpuscular Hemoglobin Concent 35.2 G/DL (32.0-36.0) Red Cell Distribution Width 12.7 % (11.6-14.8) Platelet Count 231 K/UL (150-450) Mean Platelet Volume 5.4 FL (6.5-10.1) L Neutrophils (%) (Auto) % (45.0-75.0) Lymphocytes (%) (Auto) % (20.0-45.0) Monocytes (%) (Auto) % (1.0-10.0) Eosinophils (%) (Auto) % (0.0-3.0) Basophils (%) (Auto) % (0.0-2.0) Differential Total Cells Counted 100 Neutrophils % (Manual) 65 % (45-75) Lymphocytes % (Manual) 18 % (20-45) L Monocytes % (Manual) 11 % (1-10) H Eosinophils % (Manual) 6 % (0-3) H Basophils % (Manual) 0 % (0-2) Band Neutrophils 0 % (0-8) Platelet Estimate Adequate Platelet Morphology Normal Hypochromasia 1+ Sodium Level 138 MMOL/L (136-145) Potassium Level 4.0 MMOL/L (3.5-5.1) Chloride Level 105 MMOL/L (98-107) Carbon Dioxide Level 27 MMOL/L (21-32) Anion Gap 6 mmol/L (5-15) Blood Urea Nitrogen 28 mg/dL (7-18) H Creatinine 1.7 MG/DL (0.55-1.30) H Estimat Glomerular Filtration Rate 40.2 mL/min (>60) Glucose Level 310 MG/DL (74-106) H Calcium Level 8.2 MG/DL (8.5-10.1) L Objective HEAD AND NECK: No JVD. LUNGS: Have decreased breath sounds. CARDIOVASCULAR: Regular S1 and S2 with no gallop or murmur. ABDOMEN: Obese. EXTREMITIES: 1+ pitting edema. Bernardo Stein MD Jul 16, 2019 12:51
--- NOTE | 2019-07-16 13:02 | Surgery Progress Note ---
Surgery Progress Note Subjective Additional Comments downgraded comfortable h/h noted no signs of active bleeding Objective Last 24 Hour Vital Signs Date Time Temp Pulse Resp B/P (MAP) Pulse Ox O2 Delivery O2 Flow Rate FiO2 07/16/19 12:43 97 Nasal Cannula 2.0 28 07/16/19 11:00 78 12 143/56 (85) 99 07/16/19 10:00 82 16 119/49 (72) 98 07/16/19 09:30 79 20 133/44 (73) 97 07/16/19 09:00 98.2 62 16 130/69 (89) 99 07/16/19 08:56 58 123/46 07/16/19 08:30 58 12 123/46 (71) 99 07/16/19 08:00 84 11 144/49 (80) 100 07/16/19 08:00 81 07/16/19 08:00 Nasal Cannula 2.0 07/16/19 07:00 67 13 132/55 (80) 98 07/16/19 06:00 64 18 117/45 (69) 98 07/16/19 05:00 64 18 134/47 (76) 98 07/16/19 04:00 62 07/16/19 04:00 Nasal Cannula 2.0 07/16/19 04:00 98.3 67 19 121/43 (69) 99 07/16/19 03:00 63 18 119/43 (68) 99 07/16/19 02:00 65 19 107/42 (63) 98 07/16/19 01:00 65 19 112/44 (66) 99 07/16/19 00:00 Nasal Cannula 2.0 07/16/19 00:00 65 07/16/19 00:00 98.6 64 18 114/48 (70) 100 07/15/19 23:00 66 19 117/45 (69) 99 07/15/19 22:00 67 18 114/44 (67) 98 07/15/19 21:00 73 19 118/46 (70) 98 07/15/19 20:47 80 127/48 07/15/19 20:00 Room Air 07/15/19 20:00 84 07/15/19 20:00 98.0 79 19 127/48 (74) 99 07/15/19 19:00 88 18 128/54 (78) 100 07/15/19 18:00 89 15 154/64 (94) 100 07/15/19 17:00 87 17 136/74 (94) 100 07/15/19 16:00 98.2 84 12 122/48 (72) 98 07/15/19 16:00 Room Air 07/15/19 15:21 86 07/15/19 15:00 85 14 121/44 (69) 96 07/15/19 14:00 89 11 125/47 (73) 98 I&O Intake and Output 07/15/19 07/16/19 19:00 07:00 Intake Total 1535 ml 1110.83 ml Output Total 1430 ml 1305 ml Balance 105 ml -194.17 ml Intake Oral 360 ml IV Total 1175 ml 1110.83 ml Output Urine Total 1430 ml 1305 ml # Bowel Movements 1 Dressing: other Wound: other Drains: other Cardiovascular: RSR Respiratory: decreased breath sounds Abdomen: soft, non-tender, present bowel sounds Extremities: no tenderness, no cyanosis Laboratory Tests Test 07/15/19 19:50 07/16/19 02:50 Troponin I 0.000 ng/mL (0.000-0.056) 0.000 ng/mL (0.000-0.056) White Blood Count 5.9 K/UL (4.8-10.8) Red Blood Count 2.51 M/UL (4.70-6.10) L Hemoglobin 7.8 G/DL (14.2-18.0) L Hematocrit 22.1 % (42.0-52.0) L Mean Corpuscular Volume 88 FL (80-99) Mean Corpuscular Hemoglobin 31.0 PG (27.0-31.0) Mean Corpuscular Hemoglobin Concent 35.2 G/DL (32.0-36.0) Red Cell Distribution Width 12.7 % (11.6-14.8) Platelet Count 231 K/UL (150-450) Mean Platelet Volume 5.4 FL (6.5-10.1) L Neutrophils (%) (Auto) % (45.0-75.0) Lymphocytes (%) (Auto) % (20.0-45.0) Monocytes (%) (Auto) % (1.0-10.0) Eosinophils (%) (Auto) % (0.0-3.0) Basophils (%) (Auto) % (0.0-2.0) Differential Total Cells Counted 100 Neutrophils % (Manual) 65 % (45-75) Lymphocytes % (Manual) 18 % (20-45) L Monocytes % (Manual) 11 % (1-10) H Eosinophils % (Manual) 6 % (0-3) H Basophils % (Manual) 0 % (0-2) Band Neutrophils 0 % (0-8) Platelet Estimate Adequate Platelet Morphology Normal Hypochromasia 1+ Sodium Level 138 MMOL/L (136-145) Potassium Level 4.0 MMOL/L (3.5-5.1) Chloride Level 105 MMOL/L (98-107) Carbon Dioxide Level 27 MMOL/L (21-32) Anion Gap 6 mmol/L (5-15) Blood Urea Nitrogen 28 mg/dL (7-18) H Creatinine 1.7 MG/DL (0.55-1.30) H Estimat Glomerular Filtration Rate 40.2 mL/min (>60) Glucose Level 310 MG/DL (74-106) H Calcium Level 8.2 MG/DL (8.5-10.1) L Plan Problems: (1) Decubitus skin ulcer Assessment & Plan: Patient presented on admission with full thickness stage 4 pressure injury L buttocks (L)1.1cm x (W)1.5cm x (D)0.3cm. Base of wound is sapphire and moist. Borders are macerated .Surrounding non-blanching erythema without induration. Pt complained of pain when minimally palpated. Base of scrotum is erythematous with small area of shearing noted. Medial boggy with non-blanching erythema. Pt yells when minimally palpated. (L) 5.5cm x (W)5cm. Historical scar L heel. L heel is boggy but blanchable. Tx.Plan: Cleanse L buttocks with Saline. Apply TheraHoney. Apply Moisture Barrier Paste periwound. Cover with Optifoam Drsg Daily and prn. Apply Moisture Barrier Paste to scrotum with each Incontinence care. Apply Cavilon Skin Barrier to both heels. Cover each heel with Optifoam drsg. Change every 7 days and prn. Reposition at least every 2hours or as tolerated. Off-load heels with pillow. APM/IRIS Mattress overlay. (2) Gastrointestinal hemorrhage Assessment & Plan: Patient with coffee-ground emesis possible GI bleed severe anemia requiring transfusion Currently no active bleeding noted Agree with GI recommend endoscopy/colonoscopy for evaluation PPI N.p.o. IV fluids Trend labs We will follow with recommendations as work-up completed thank you for let me participate in patient's care repeat egd at bedside in ICU with possible etiology identified and hemostasis will monitor trend h/h downgraded There is a small left inguinal hernia which contains only fat. There are colonic diverticula. There is considerable retained stool within the proximal sigmoid colon. There is no evidence of acute diverticulitis. The appendix is normal. No small bowel distention. No free or loculated intraperitoneal gas or fluid is evident. The stomach is mildly distended with gas. No downstream obstructive lesion is demonstrated, however. The duodenum and distal esophagus are unremarkable. Lack of IV contrast limits assessment of solid organs. The liver is grossly unremarkable. The gallbladder contains gallstones. No biliary ductal dilatation. The pancreas is unremarkable. The spleen demonstrates an accessory splenule, is otherwise unremarkable. The adrenals are unremarkable. The kidneys demonstrate bilateral nonspecific perinephric fat stranding. No definite focal abnormality. No hydronephrosis or hydroureter or renal or ureteral calculi demonstrated. The kidneys are somewhat atrophic. The bladder is mildly distended. No pelvic mass demonstrated. There are some prominent iliac chain nodes bilaterally, largest on the left measuring up to 19 mm long axis dimension. There are also prominent retroperitoneal nodes, largest measuring 2.4 cm long axis dimension, 1.1 cm short axis dimension. No pelvic mass. 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 There is considerable heterotopic ossification of the left hip region. Some surgical scarring is seen in the left hip region soft tissues. There are degenerative changes of the lumbar spine. The included lung bases demonstrate posterior dependent atelectatic changes. Impression: Limited assessment of the GI tract, due to lack of enteric contrast demonstration Mild gastric distention without evidence of downstream obstructive lesion. No acute process otherwise. Cholelithiasis Mildly distended bladder Colonic diverticulosis. No evidence of diverticulitis Nonspecific bilateral perinephric fat stranding Borderline bilateral iliac and retroperitoneal lymphadenopathy, of uncertain significance. Could be baseline for this patient versus reactive, less likely indicative of metastatic neoplasm or lymphoproliferative disorder (3) Morbid obesity Good Love Jul 16, 2019 13:02
--- NOTE | 2019-07-16 14:55 | General Progress Note ---
Assessment/Plan Problem List: (1) Diabetes mellitus ICD Codes: E11.9 - Type 2 diabetes mellitus without complications SNOMED: 97069968 (2) Morbid obesity ICD Codes: E66.01 - Morbid (severe) obesity due to excess calories SNOMED: 484738639 (3) Gastrointestinal hemorrhage ICD Codes: K92.2 - Gastrointestinal hemorrhage, unspecified SNOMED: 46952282 Qualifiers: Qualified Codes: K92.2 - Gastrointestinal hemorrhage, unspecified (4) Anemia ICD Codes: D64.9 - Anemia, unspecified SNOMED: 366080618 (5) Renal failure (ARF), acute on chronic ICD Codes: N17.9 - Acute kidney failure, unspecified; N18.9 - Chronic kidney disease, unspecified SNOMED: 943066960 (6) Hemoptysis ICD Codes: R04.2 - Hemoptysis SNOMED: 75582149 Status: stable, progressing Assessment/Plan: pt diet gi/neph f/u cbc bmp am transfuse prn aru eval Subjective Constitutional: Reports: weakness Allergies: Coded Allergies: ASPIRIN (Verified Allergy, Unknown, 11/22/17) PENICILLINS (Verified Allergy, Unknown, 11/22/17) SULFAMETHOXAZOLE (Verified Allergy, Unknown, 11/22/17) TRIMETHOPRIM (Verified Allergy, Unknown, 11/22/17) All Systems: reviewed and negative except above Subjective o2nc sleepy Objective Last 24 Hour Vital Signs Date Time Temp Pulse Resp B/P (MAP) Pulse Ox O2 Delivery O2 Flow Rate FiO2 07/16/19 12:43 97 Nasal Cannula 2.0 28 07/16/19 12:00 98.8 70 16 124/59 (80) 98 07/16/19 11:00 78 12 143/56 (85) 99 07/16/19 10:00 82 16 119/49 (72) 98 07/16/19 09:30 79 20 133/44 (73) 97 07/16/19 09:00 98.2 62 16 130/69 (89) 99 07/16/19 08:56 58 123/46 07/16/19 08:30 58 12 123/46 (71) 99 07/16/19 08:00 84 11 144/49 (80) 100 07/16/19 08:00 81 07/16/19 08:00 Nasal Cannula 2.0 07/16/19 07:00 67 13 132/55 (80) 98 07/16/19 06:00 64 18 117/45 (69) 98 07/16/19 05:00 64 18 134/47 (76) 98 07/16/19 04:00 62 07/16/19 04:00 Nasal Cannula 2.0 07/16/19 04:00 98.3 67 19 121/43 (69) 99 07/16/19 03:00 63 18 119/43 (68) 99 07/16/19 02:00 65 19 107/42 (63) 98 07/16/19 01:00 65 19 112/44 (66) 99 07/16/19 00:00 Nasal Cannula 2.0 07/16/19 00:00 65 07/16/19 00:00 98.6 64 18 114/48 (70) 100 07/15/19 23:00 66 19 117/45 (69) 99 07/15/19 22:00 67 18 114/44 (67) 98 07/15/19 21:00 73 19 118/46 (70) 98 07/15/19 20:47 80 127/48 07/15/19 20:00 Room Air 07/15/19 20:00 84 07/15/19 20:00 98.0 79 19 127/48 (74) 99 07/15/19 19:00 88 18 128/54 (78) 100 07/15/19 18:00 89 15 154/64 (94) 100 07/15/19 17:00 87 17 136/74 (94) 100 07/15/19 16:00 98.2 84 12 122/48 (72) 98 07/15/19 16:00 Room Air 07/15/19 15:21 86 07/15/19 15:00 85 14 121/44 (69) 96 Intake and Output 07/15/19 07/16/19 19:00 07:00 Intake Total 1535 ml 1110.83 ml Output Total 1430 ml 1305 ml Balance 105 ml -194.17 ml Intake Oral 360 ml IV Total 1175 ml 1110.83 ml Output Urine Total 1430 ml 1305 ml # Bowel Movements 1 Laboratory Tests 07/15/19 19:50: Troponin I 0.000 07/16/19 02:50: Troponin I 0.000, White Blood Count 5.9, Red Blood Count 2.51L, Hemoglobin 7.8L , Hematocrit 22.1L, Mean Corpuscular Volume 88, Mean Corpuscular Hemoglobin 31.0 , Mean Corpuscular Hemoglobin Concent 35.2, Red Cell Distribution Width 12.7, Platelet Count 231, Mean Platelet Volume 5.4L, Neutrophils (%) (Auto) , Lymphocytes (%) (Auto) , Monocytes (%) (Auto) , Eosinophils (%) (Auto) , Basophils (%) (Auto) , Differential Total Cells Counted 100, Neutrophils % ( Manual) 65, Lymphocytes % (Manual) 18L, Monocytes % (Manual) 11H, Eosinophils % (Manual) 6H, Basophils % (Manual) 0, Band Neutrophils 0, Platelet Estimate Adequate, Platelet Morphology Normal, Hypochromasia 1+, Sodium Level 138, Potassium Level 4.0, Chloride Level 105, Carbon Dioxide Level 27, Anion Gap 6, Blood Urea Nitrogen 28H, Creatinine 1.7H, Estimat Glomerular Filtration Rate 40.2, Glucose Level 310H, Calcium Level 8.2L Height (Feet): 5 Height (Inches): 7.00 Weight (Pounds): 220 General Appearance: lethargic EENT: normal ENT inspection Neck: normal alignment Cardiovascular: normal peripheral pulses, normal rate, regular rhythm Respiratory/Chest: chest wall non-tender, lungs clear, normal breath sounds Abdomen: normal bowel sounds, non tender, soft Extremities: normal inspection Edema: no edema noted Arm (L), no edema noted Arm (R), no edema noted Leg (L), no edema noted Leg (R), no edema noted Pedal (L), no edema noted Pedal (R), no edema noted Generalized Neurologic: motor weakness Skin: normal pigmentation, warm/dry Joe Salinas DO Jul 16, 2019 14:55
[2019-07-16] MEDS: Pantoprazole Inj IVP SCH (20:55)
[2019-07-16] MEDS: Miralax 17gm pkt ORAL SCH (20:55)
[2019-07-16] MEDS: Tamsulosin 0.4mg cap ORAL SCH (20:56)
[2019-07-16] MEDS ORDERED: Miralax 17gm pkt ORAL SCH (21:00)
[2019-07-16] MEDS ORDERED: Pantoprazole Inj IVP SCH (21:00)
[2019-07-17] VITALS: BP 132/53
[2019-07-17 04:00] VITALS: BP 115/51
[2019-07-17 05:41] LABS: ANION GAP 9 mmol/L (5-15); BLOOD UREA NITROGEN 32 mg/dL (7-18); CALCIUM 9.1 MG/DL (8.5-10.1); CARBON DIOXIDE 27 MMOL/L (21-32); CHLORIDE 108 MMOL/L (98-107); CREATININE 1.6 MG/DL (0.55-1.30); POTASSIUM 4.5 MMOL/L (3.5-5.1); SODIUM 144 MMOL/L (136-145)
[2019-07-17 05:42] LABS: BASOPHILS % (AUTO) 0.7 % (0.0-2.0); EOSINOPHILS % (AUTO) 4.1 % (0.0-3.0); HEMOGLOBIN 8.3 G/DL (14.2-18.0); LYMPHOCYTES % (AUTO) 22.8 % (20.0-45.0); MEAN CORPUSCULAR VOLUME 88 FL (80-99); MONOCYTES % (AUTO) 7.9 % (1.0-10.0); NEUTROPHILS % (AUTO) 64.5 % (45.0-75.0); PLATELET COUNT 253 K/UL (150-450); RED BLOOD COUNT 2.71 M/UL (4.70-6.10); RED CELL DISTRIBUTION WIDTH 13.2 % (11.6-14.8); WHITE BLOOD COUNT 7.1 K/UL (4.8-10.8)
[2019-07-17] MEDS: NovoLOG Insulin Flexpen SUBQ SCH ×6 (05:58→20:27)
--- NOTE | 2019-07-17 06:15 | Consultation ---
History of Present Illness General Chief Complaint: Gastrointestinal Bleed Referring physician: MELANI MAYER Reason for Consultation: COFFEE GROUNDS Present Illness Allergies: Coded Allergies: ASPIRIN (Verified Allergy, Unknown, 11/22/17) PENICILLINS (Verified Allergy, Unknown, 11/22/17) SULFAMETHOXAZOLE (Verified Allergy, Unknown, 11/22/17) TRIMETHOPRIM (Verified Allergy, Unknown, 11/22/17) Medication History Scheduled Amlodipine Besylate (Norvasc), 2.5 MG ORAL DAILY, (Reported) Ascorbic Acid* (Vitamin C*), 500 MG ORAL DAILY, (Reported) Atorvastatin Calcium* (Lipitor*), 10 MG ORAL BEDTIME, (Reported) Brimonidine Tartrate* (Alphagan*), 1 DROP BOTH EYES TID, (Reported) Divalproex Sodium* (Depakote Er*), 750 MG ORAL EVERY 12 HOURS, (Reported) Docusate Sodium* (Colace*), 100 MG ORAL DAILY, (Reported) Escitalopram Oxalate* (Lexapro*), 10 MG ORAL DAILY, (Reported) Famotidine* (Pepcid 20mg tablet*), 20 MG ORAL ACBREAKFAST, (Reported) Fish Oil (Fish Oil 1,000 mg Capsule), 1,000 MG ORAL DAILY, (Reported) Gabapentin* (Gabapentin*), 400 MG ORAL THREE TIMES A DAY, (Reported) Hum Insulin Nph/Reg Insulin Hm (Humulin 70-30 Vial), 20 UNITS SUBQ EVERY EVENING , (Reported) Insulin Detemir (Levemir), 0 SUBQ BID, (Reported) Ipratropium/Albuterol Sulfate (DuoNeb 0.5-3(2.5)mg/3ml), 3 ML HHN Q4HR, ( Reported) Linagliptin (Tradjenta), 5 MG PO DAILY, (Reported) Multivitamins* (Multivitamins*), 1 TAB ORAL DAILY, (Reported) Nateglinide (Starlix), 120 MG ORAL THREE TIMES A DAY, (Reported) Risperidone* (Risperdal*), 0.5 MG ORAL BID, (Reported) Sennosides (Senna), 17.2 MG PO QHS, (Reported) Tamsulosin HCl (Flomax), 0.4 MG ORAL QHS, (Reported) Valsartan (Diovan), 80 MG ORAL DAILY, (Reported) Zinc Sulfate (Zinc Sulfate*), 220 MG ORAL DAILY, (Reported) Scheduled PRN Acetaminophen* (Acetaminophen 325MG Tablet*), 650 MG ORAL Q4H PRN for Mild Pain/ Temp > 100.5, (Reported) Bisacodyl (Bisacodyl), 10 MG RC DAILY PRN for Constipation, (Reported) Glucagon (Glucagen), 1 MG IM for Hypoglycemia, (Reported) Magnesium Hydroxide* (Milk Of Magnesia*), 30 ML ORAL QHS PRN for CONSTIPATION, ( Reported) Na Phos,M-B/Na Phos,Di-Ba* (Fleet Enema*), 133 ML RECTAL EVERY OTHER DAY PRN for Constipation, (Reported) Ondansetron* (Zofran 4 Mg/2 Ml Vial*), 4 MG IM Q6H PRN for Nausea & Vomiting, ( Reported) Temazepam* (Restoril*), 15 MG ORAL BEDTIME PRN for Insomnia, (Reported) Discontinued Medications Acetaminophen* (Tylenol Extra Strength*), 650 MG ORAL Q4HR PRN for Mild Pain/ Temp > 100.5, (Reported) Discontinued Reason: Prescription changed Bisacodyl* (Dulcolax*), 10 MG ORAL DAILY, (Reported) Discontinued Reason: Prescription changed Nph, Human Insulin Isophane (Humulin N), 0 SUBQ, (Reported) Discontinued Reason: Prescription changed Ondansetron* (Zofran*), 4 MG ORAL Q6H PRN for Nausea & Vomiting, (Reported) Discontinued Reason: Prescription changed Risperidone* (Risperdal*), 2 MG ORAL DAILY, (Reported) Discontinued Reason: Prescription changed Patient History Healthcare decision maker Resuscitation status Do Not Resuscitate Advanced Directive on File No Physical Exam Last 24 Hour Vital Signs Date Time Temp Pulse Resp B/P (MAP) Pulse Ox O2 Delivery O2 Flow Rate FiO2 07/17/19 04:00 Nasal Cannula 2.0 07/17/19 04:00 98.3 63 20 115/51 (72) 97 07/17/19 03:19 54 07/17/19 00:00 Nasal Cannula 2.0 07/17/19 00:00 98.3 62 20 132/53 (79) 97 07/16/19 23:45 59 07/16/19 20:57 63 125/60 07/16/19 20:00 97.9 73 20 118/69 (85) 97 07/16/19 20:00 72 07/16/19 20:00 Nasal Cannula 2.0 07/16/19 16:00 Nasal Cannula 2.0 07/16/19 16:00 98.5 71 16 136/61 (86) 99 07/16/19 15:25 66 07/16/19 12:43 97 Nasal Cannula 2.0 28 07/16/19 12:00 Nasal Cannula 2.0 07/16/19 12:00 98.8 70 16 124/59 (80) 98 07/16/19 11:39 66 07/16/19 11:00 78 12 143/56 (85) 99 07/16/19 10:00 82 16 119/49 (72) 98 07/16/19 09:30 79 20 133/44 (73) 97 07/16/19 09:00 98.2 62 16 130/69 (89) 99 07/16/19 08:56 58 123/46 07/16/19 08:30 58 12 123/46 (71) 99 07/16/19 08:00 84 11 144/49 (80) 100 07/16/19 08:00 81 07/16/19 08:00 Nasal Cannula 2.0 07/16/19 07:00 67 13 132/55 (80) 98 Intake and Output 07/16/19 07/17/19 19:00 07:00 Intake Total 753.33 ml 420 ml Output Total 1795 ml Balance -1041.67 ml 420 ml Intake Oral 480 ml 420 ml IV Total 273.33 ml Output Urine Total 1795 ml # Voids 1 Laboratory Tests Test 07/17/19 03:05 White Blood Count 7.1 K/UL (4.8-10.8) Red Blood Count 2.71 M/UL (4.70-6.10) L Hemoglobin 8.3 G/DL (14.2-18.0) L Hematocrit 24.0 % (42.0-52.0) L Mean Corpuscular Volume 88 FL (80-99) Mean Corpuscular Hemoglobin 30.7 PG (27.0-31.0) Mean Corpuscular Hemoglobin Concent 34.6 G/DL (32.0-36.0) Red Cell Distribution Width 13.2 % (11.6-14.8) Platelet Count 253 K/UL (150-450) Mean Platelet Volume 5.3 FL (6.5-10.1) L Neutrophils (%) (Auto) 64.5 % (45.0-75.0) Lymphocytes (%) (Auto) 22.8 % (20.0-45.0) Monocytes (%) (Auto) 7.9 % (1.0-10.0) Eosinophils (%) (Auto) 4.1 % (0.0-3.0) H Basophils (%) (Auto) 0.7 % (0.0-2.0) Sodium Level 144 MMOL/L (136-145) Potassium Level 4.5 MMOL/L (3.5-5.1) Chloride Level 108 MMOL/L (98-107) H Carbon Dioxide Level 27 MMOL/L (21-32) Anion Gap 9 mmol/L (5-15) Blood Urea Nitrogen 32 mg/dL (7-18) H Creatinine 1.6 MG/DL (0.55-1.30) H Estimat Glomerular Filtration Rate 43.1 mL/min (>60) Glucose Level 336 MG/DL (74-106) H Calcium Level 9.1 MG/DL (8.5-10.1) Height (Feet): 5 Height (Inches): 7.00 Weight (Pounds): 213 Medications Current Medications Medications (Trade) Dose Ordered Sig/Jayden Route PRN Reason Start Time Stop Time Status Last Admin Dose Admin Acetaminophen (Tylenol) 650 mg Q4H PRN ORAL Mild Pain/Temp > 100.5 07/16/19 12:15 08/08/19 04:14 Artificial Tears (Akwa-Tears) 2 drop EVERY 6 HOURS BOTH EYES 07/17/19 00:00 08/16/19 00:00 07/17/19 05:57 Atorvastatin Calcium (Lipitor) 10 mg BEDTIME ORAL 07/16/19 21:00 08/08/19 20:59 07/16/19 20:58 Bisacodyl (Dulcolax) 10 mg DAILY ORAL 07/17/19 09:00 08/09/19 08:59 Dextrose (Dextrose 50%) 25 ml Q30M PRN IV Hypoglycemia 07/16/19 11:30 4/9/20 19:59 Dextrose (Dextrose 50%) 50 ml Q30M PRN IV Hypoglycemia 07/16/19 11:30 08/08/19 19:59 Escitalopram Oxalate (Lexapro) 10 mg DAILY ORAL 07/17/19 09:00 08/09/19 08:59 Gabapentin (Neurontin) 400 mg THREE TIMES A DAY ORAL 07/16/19 13:00 08/09/19 08:59 07/16/19 18:10 Hydralazine HCl (Apresoline) 25 mg Q4H PRN ORAL bp over 160 syst 07/16/19 11:30 08/08/19 11:29 Insulin Aspart (NovoLOG) BEFORE MEALS AND HS SUBQ 07/16/19 11:30 08/08/19 20:59 07/17/19 05:58 Metoprolol Tartrate (Lopressor) 25 mg EVERY 12 HOURS ORAL 07/16/19 21:00 08/14/19 10:59 07/16/19 20:57 Ondansetron HCl (Zofran) 4 mg Q6H PRN IVP Nausea & Vomiting 07/16/19 11:30 08/12/19 17:24 Ondansetron HCl (Zofran) 4 mg Q6H PRN ORAL Nausea & Vomiting 07/16/19 11:30 08/08/19 11:29 Pantoprazole (Protonix) 40 mg EVERY 12 HOURS IVP 07/16/19 21:00 08/15/19 20:59 07/16/19 20:55 Polyethylene Glycol (Miralax) 17 gm BEDTIME ORAL 07/16/19 21:00 08/15/19 20:59 07/16/19 20:55 Risperidone (RisperDAL) 2 mg DAILY ORAL 07/17/19 09:00 08/24/19 08:59 Sennosides (Senokot) 8.6 mg EVERY 12 HOURS ORAL 07/16/19 21:00 08/14/19 20:59 07/16/19 20:58 Sennosides (Senokot) 8.6 mg Q6H PRN ORAL Constipation 07/16/19 11:30 08/08/19 11:29 Tamsulosin HCl (Flomax) 0.4 mg QHS ORAL 07/16/19 21:00 08/08/19 20:59 3/17/20 20:56 Temazepam (Restoril) 15 mg BEDTIME PRN ORAL Insomnia 07/16/19 21:00 07/23/19 18:14 07/16/19 20:56 Assessment/Plan Assessment/Plan: Hematology Consultation Reason for Hospitalization: Gastrointestinal Bleed Referring physician: MELNAI MAYER Reason for Consultation: COFFEE GROUNDS, Anemia DS: 07/17/2019 ID 68-year-old male history of tachycardia history of obesity presents with acute episode of coffee-ground emesis, no known aggravating relieving factors severity is mild, intermittent patient denies any chest pain shortness of breath patient denies any bloody stools patient denies any abdominal pain patient presents for evaluation for for possible GI bleed. Gi consulted, egd was negative, pt seen, awake A&O NAD with no active s/sx of N/V/D. At time of evaluation, the patient denies any abdominal pain N/V/D constipation or diarrhea. He presents today with low Hgb of 7.1 He states he had colonoscopy a few years ago but unable to recall when. At this time, hgb is better, is s/p transfusion. Home Meds Reported Medications Ascorbic Acid* (VITAMIN C*) 500 Mg Tablet, 500 MG ORAL DAILY for wound healing, #30 TAB 0 Refills 07/09/19 Zinc Sulfate (ZINC SULFATE*) 220 Mg Capsule, 220 MG ORAL DAILY for supplement, CAP 0 Refills 07/09/19 Ondansetron* (ZOFRAN*) 4 Mg Tablet, 4 MG ORAL Q6H PRN for Nausea & Vomiting, TAB 07/09/19 Linagliptin (TRADJENTA) 5 Mg Tablet, 5 MG PO for dm, TAB 07/09/19 Sennosides (SENNA) 8.6 Mg Tablet, 8.6 MG PO for constipation, TAB 07/09/19 Atorvastatin Calcium* (LIPITOR*) 10 Mg Tablet, 10 MG ORAL BEDTIME for hyperlipidemia, TAB 07/09/19 Insulin Detemir (LEVEMIR) 100 Unit/1 Ml Vial, 0 SUBQ BEDTIME for dm, VIAL 07/09/19 Nph, Human Insulin Isophane (HUMULIN N) 100 Unit/1 Ml Vial, 0 SUBQ for dm, VIAL 07/09/19 Na Phos,M-B/Na Phos,Di-Ba* (FLEET ENEMA*) 133 Ml Enema, 133 ML RECTAL DAILY for constipation, ML 0 Refills 07/09/19 Fish Oil (Fish Oil 1,000 mg Capsule) 1 Each Capsule, 1000 MG ORAL DAILY for supplement, CAP 07/09/19 Bisacodyl* (DULCOLAX*) 5 Mg Tablet.dr, 10 MG ORAL DAILY for constpiation, #10 TAB 0 Refills 07/09/19 Valsartan (DIOVAN) 80 Mg Tab, 60 MG ORAL DAILY for htn, TAB 07/09/19 Nateglinide (Starlix) 120 Mg Tablet, 120 MG ORAL THREE TIMES A DAY, TAB 11/27/17 [place]-3 Fatty Acids/Fish Oil (FISH OIL 1,000 MG CAPSULE) 1 Each Capsule, 1000 MG ORAL DAILY, #30 CAP 0 Refills 11/27/17 Famotidine* (Pepcid 20mg tablet*) 20 Mg Tablet, 20 MG ORAL TWICE A DAY, #60 TAB 0 Refills 11/27/17 Acetaminophen* (TYLENOL EXTRA STRENGTH*) 500 Mg Tablet, 650 MG ORAL Q4HR PRN for Mild Pain/Temp > 100.5, TAB 0 Refills 11/22/17 Risperidone* (RISPERDAL*) 2 Mg Tablet, 2 MG ORAL DAILY, #30 TAB 0 Refills 11/22/17 Temazepam* (RESTORIL*) 15 Mg Capsule, 15 MG ORAL BEDTIME PRN for Insomnia, CAP 11/22/17 Amlodipine Besylate (Norvasc) 2.5 Mg Tablet, 25 MG ORAL DAILY for htn, TAB 11/22/17 Escitalopram Oxalate* (LEXAPRO*) 10 Mg Tablet, 10 MG ORAL DAILY, TAB 11/22/17 Glucagon (Glucagen) 1 Mg/1 Ml Vial, 1 MG IJ PRN for Hypoglycemia, VIAL 11/22/17 Gabapentin* (GABAPENTIN*) 400 Mg Capsule, 400 MG ORAL THREE TIMES A DAY, CAP 0 Refills 11/22/17 Tamsulosin HCl (Flomax) 0.4 Mg Cap.er.24h, 0.4 MG ORAL QHS, CAP 11/22/17 Ipratropium/Albuterol Sulfate (DuoNeb 0.5-3(2.5)mg/3ml) 3 Ml Ampul.neb, 3 ML HHN , EA 11/22/17 Discontinued Reported Medications Lorazepam* (ATIVAN*) 1 Mg Tablet, 1 MG ORAL Q6HR PRN for For Anxiety, TAB 11/27/17 Insulin Aspart* (NOVOLOG*) 100 Unit/1 Ml Insuln.pen, 0 SUBQ ACHS, #1 EA 0 Refills Sliding scale 11/27/17 Heparin Sod (Porcine) (HEPARIN SODIUM*) 5 000/1 Ml Vial, 5000 UNITS SUBQ EVERY 12 HOURS, VIAL 11/27/17 Atorvastatin Calcium* (ATORVASTATIN CALCIUM*) 20 Mg Tablet, 10 MG ORAL BEDTIME, TAB 11/27/17 Aripiprazole* (ABILIFY*) 2 Mg Tablet, 5 MG ORAL DAILY, TAB 11/27/17 Amlodipine Besylate (Norvasc) 5 Mg Tablet, 5 MG ORAL DAILY, TAB 11/27/17 Latanoprost* (XALATAN*) 2.5 Ml Drops, 1 DROP BOTH EYES BEDTIME, #2.5 ML 0 Refills 11/22/17 Ascorbic Acid* (VITAMIN C*) 500 Mg Tablet, 500 MG ORAL DAILY, #30 TAB 0 Refills 11/22/17 Tramadol Hcl* (ULTRAM*) 50 Mg Tablet, 50 MG ORAL Q6H PRN for For Pain, #30 TAB 0 Refills 11/22/17 Rifaximin* (XIFAXAN*) 550 Mg Tablet, 550 MG ORAL TID for 30 Days, MG 0 Refills 11/22/17 Multivitamins* (MULTIVITAMINS*) 1 Each Tablet, 1 TAB ORAL DAILY, TAB 0 Refills 11/22/17 Enoxaparin* (LOVENOX*) 40 Mg/0.4 Ml Inj, 40 MG SUBQ DAILY 11/22/17 Losartan Potassium* (LOSARTAN POTASSIUM*) 50 Mg Tablet, 50 MG ORAL DAILY, TAB 11/22/17 Insulin Glargine (LANTUS) 100 Unit/1 Ml Insuln.pen, 26 UNITS SUBQ BEDTIME, #1 EA 0 Refills 11/22/17 Lactobacillus Acidophilus (ACIDOPHILUS) 1 Each Capsule, 1 EACH PO, CAP 11/22/17 Arginine/Glutamine/Calcium Hmb (MARZENA PACKET) 1 Each Powd.pack, 1 EACH PO, PACK 11/22/17 Glipizide* (GLIPIZIDE*) 5 Mg Tablet, 5 MG ORAL BIDAC, TAB 11/22/17 Na Phos,M-B/Na Phos,Di-Ba* (FLEET ENEMA*) 133 Ml Enema, 133 ML RECTAL PRN for Constipation, ML 0 Refills 11/22/17 Divalproex Sodium* (DEPAKOTE ER*) 500 Mg Tab.er.24h, 750 MG ORAL EVERY 12 HOURS , TAB 11/22/17 Docusate Sodium* (COLACE*) 100 Mg Capsule, 100 MG ORAL DAILY, CAP 11/22/17 Benztropine Mesylate* (COGENTIN*) 0.5 Mg Tablet, 1 MG PO, TAB 11/22/17 Cholecalciferol (Vitamin D3)* (VITAMIN D*) 1,000 Unit Tablet, 1000 UNIT ORAL DAILY, #30 TAB 11/22/17 Calcium Carbonate/Vitamin D3 (CALCIUM 500 + VIT D 200 CAPLET) 1 Each Tablet, 1 EACH PO, TAB 11/22/17 Baclofen* (BACLOFEN*) 10 Mg Tablet, 10 MG ORAL THREE TIMES A DAY, TAB 11/22/17 Brimonidine Tartrate* (ALPHAGAN*) 5 Ml Drops, 1 DROP BOTH EYES TID, ML 11/22/17 Pioglitazone Hcl* (ACTOS*) 30 Mg Tablet, 30 MG ORAL DAILY, TAB 11/22/17 Med list reviewed/reconciled: Yes Allergies: ASPIRIN (Verified Allergy, Unknown, 11/22/17) PENICILLINS (Verified Allergy, Unknown, 11/22/17) SULFAMETHOXAZOLE (Verified Allergy, Unknown, 11/22/17) TRIMETHOPRIM (Verified Allergy, Unknown, 11/22/17) History Provided By: Patient, Medical Record PMH Narrative Reviewed Nursing Documentation: PMH: Agreed; PSxH: Agreed Nursing Documentation-PMH Hx Hypertension: Yes Hx COPD: Yes Hx Diabetes: Yes Hx Gastrointestinal Problems: Yes Hx Cerebrovascular Accident: Yes - TIA Hx Seizures: Yes Social History: Denies: smoking, alcohol use, drug use, other ROS: All Other Systems: negative except mentioned in HPI, difficult to obtain Physical Exam General: well appearing, no apparent distress, alert HEENT: PERRL/EOMI, normal ENT inspection Neck: supple Resp: normal breath sounds, no respiratory distress Cv: normal rate Marlon: no ttp, nd Rectal: deferred Msk: normal inspection, back normal Neurologic: alert, oriented x3 Psychiatric: normal inspection, judgement/insight normal, memory normal Labs: noted Imaging: reviewed CT: Borderline bilateral iliac and retroperitoneal lymphadenopathy, of uncertain significance. Could be baseline for this patient versus reactive, less likely indicative of metastatic neoplasm or lymphoproliferative disorder EGD Operative Findings/Diagnosis: Bulb DU, shallow, white based, 1/3 circumferential, not active bleeding Assessment and Recs: # Anemia due to gi bleed, no evidence of hemolysis, on presentation hgb 6.3 --> transfused with several units of prbc --> egd completed showing non active bleeding --> anemia panel also reviewed as well --> peripheral smear is noted --> meds reviewed # Hyperocag disorder with transient atrial fib --> bb, mtp as per cards --> hold off on anticoag # Decubitus skin ulcer --> [place], moisture barrier --> turn as needed --> per wound care, surg # Hypertension. On metoprolol 25 b.i.d. --> on mtp, as per cards # [place] likely due to dehydration, volume down --> per renal, ivf # Hyperlipidemia, on Lipitor. # BPH on Flomax. # Psychiatric disorder. Appreciate consultation and dw Yaniv Tabares MD Jul 17, 2019 06:15
[2019-07-17 08:00] VITALS: BP 121/54
[2019-07-17] MEDS: Pantoprazole Inj IVP SCH ×2 (08:34→20:27)
[2019-07-17] MEDS: Bisacodyl EC 5mg tab ORAL SCH (08:35)
[2019-07-17] MEDS: Sennosides 8.6mg tab ORAL SCH ×2 (08:36→20:29)
--- NOTE | 2019-07-17 08:37 | General Progress Note ---
Assessment/Plan Status: stable, progressing Assessment/Plan: gib gastric ulcer duodenal ulcer stable labs today no obvious bleeding per nurses ppi fu cbc dc planning per primary team Subjective ROS Limited/Unobtainable: Yes Allergies: Coded Allergies: ASPIRIN (Verified Allergy, Unknown, 11/22/17) PENICILLINS (Verified Allergy, Unknown, 11/22/17) SULFAMETHOXAZOLE (Verified Allergy, Unknown, 11/22/17) TRIMETHOPRIM (Verified Allergy, Unknown, 11/22/17) Objective Last 24 Hour Vital Signs Date Time Temp Pulse Resp B/P (MAP) Pulse Ox O2 Delivery O2 Flow Rate FiO2 07/17/19 04:00 Nasal Cannula 2.0 07/17/19 04:00 98.3 63 20 115/51 (72) 97 07/17/19 03:19 54 07/17/19 00:00 Nasal Cannula 2.0 07/17/19 00:00 98.3 62 20 132/53 (79) 97 07/16/19 23:45 59 07/16/19 20:57 63 125/60 07/16/19 20:00 97.9 73 20 118/69 (85) 97 07/16/19 20:00 72 07/16/19 20:00 Nasal Cannula 2.0 07/16/19 16:00 Nasal Cannula 2.0 07/16/19 16:00 98.5 71 16 136/61 (86) 99 07/16/19 15:25 66 07/16/19 12:43 97 Nasal Cannula 2.0 28 07/16/19 12:00 Nasal Cannula 2.0 07/16/19 12:00 98.8 70 16 124/59 (80) 98 07/16/19 11:39 66 07/16/19 11:00 78 12 143/56 (85) 99 07/16/19 10:00 82 16 119/49 (72) 98 07/16/19 09:30 79 20 133/44 (73) 97 07/16/19 09:00 98.2 62 16 130/69 (89) 99 07/16/19 08:56 58 123/46 Intake and Output 07/16/19 07/17/19 19:00 07:00 Intake Total 753.33 ml 420 ml Output Total 1795 ml Balance -1041.67 ml 420 ml Intake Oral 480 ml 420 ml IV Total 273.33 ml Output Urine Total 1795 ml # Voids 1 Laboratory Tests 07/17/19 03:05: White Blood Count 7.1, Red Blood Count 2.71L, Hemoglobin 8.3L, Hematocrit 24.0L , Mean Corpuscular Volume 88, Mean Corpuscular Hemoglobin 30.7, Mean Corpuscular Hemoglobin Concent 34.6, Red Cell Distribution Width 13.2, Platelet Count 253, Mean Platelet Volume 5.3L, Neutrophils (%) (Auto) 64.5, Lymphocytes ( %) (Auto) 22.8, Monocytes (%) (Auto) 7.9, Eosinophils (%) (Auto) 4.1H, Basophils (%) (Auto) 0.7, Sodium Level 144, Potassium Level 4.5, Chloride Level 108H, Carbon Dioxide Level 27, Anion Gap 9, Blood Urea Nitrogen 32H, Creatinine 1.6H, Estimat Glomerular Filtration Rate 43.1, Glucose Level 336H, Calcium Level 9.1 Height (Feet): 5 Height (Inches): 7.00 Weight (Pounds): 213 General Appearance: alert EENT: PERRL/EOMI Neck: supple Cardiovascular: normal rate Respiratory/Chest: decreased breath sounds Abdomen: normal bowel sounds, non tender, soft Extremities: non-tender Shin Browne MD Jul 17, 2019 08:37
--- NOTE | 2019-07-17 11:01 | Cardiac Electrophysiology PN ---
Assessment/Plan Assessment/Plan 1. Transient atrial flutter was likely in the setting of acute GI bleed. Converted to sinus rhythm. On Metoprolol 25 mg b.i.d. 2. Hypertension. On metoprolol 25 b.i.d. 3. Acute GI bleed. Hemoglobin was down to 6.8, currently is 8.6. The patient already underwent EGD by Dr Finnegan with no acute findings. 4. Renal failure. Creatinine was 1.7, currently is 1.5. Ruled out for NC. Echocardiogram pending 5. Hyperlipidemia, on Lipitor. 6. BPH on Flomax. 7. Psychiatric disorder. Subjective Subjective No CP or SOB on SDU. RN at bedside. No source of bleeding identified yet Objective Last 24 Hour Vital Signs Date Time Temp Pulse Resp B/P (MAP) Pulse Ox O2 Delivery O2 Flow Rate FiO2 07/17/19 08:35 53 121/54 07/17/19 08:00 52 07/17/19 08:00 Nasal Cannula 2.0 07/17/19 08:00 98.0 53 18 121/54 (76) 98 07/17/19 04:00 Nasal Cannula 2.0 07/17/19 04:00 98.3 63 20 115/51 (72) 97 07/17/19 03:19 54 07/17/19 00:00 Nasal Cannula 2.0 07/17/19 00:00 98.3 62 20 132/53 (79) 97 07/16/19 23:45 59 07/16/19 20:57 63 125/60 07/16/19 20:00 97.9 73 20 118/69 (85) 97 07/16/19 20:00 72 07/16/19 20:00 Nasal Cannula 2.0 07/16/19 16:00 Nasal Cannula 2.0 07/16/19 16:00 98.5 71 16 136/61 (86) 99 07/16/19 15:25 66 07/16/19 12:43 97 Nasal Cannula 2.0 28 07/16/19 12:00 Nasal Cannula 2.0 07/16/19 12:00 98.8 70 16 124/59 (80) 98 07/16/19 11:39 66 07/16/19 11:00 78 12 143/56 (85) 99 Intake and Output 07/16/19 07/17/19 19:00 07:00 Intake Total 753.33 ml 420 ml Output Total 1795 ml Balance -1041.67 ml 420 ml Intake Oral 480 ml 420 ml IV Total 273.33 ml Output Urine Total 1795 ml # Voids 1 Laboratory Tests Test 07/17/19 03:05 White Blood Count 7.1 K/UL (4.8-10.8) Red Blood Count 2.71 M/UL (4.70-6.10) L Hemoglobin 8.3 G/DL (14.2-18.0) L Hematocrit 24.0 % (42.0-52.0) L Mean Corpuscular Volume 88 FL (80-99) Mean Corpuscular Hemoglobin 30.7 PG (27.0-31.0) Mean Corpuscular Hemoglobin Concent 34.6 G/DL (32.0-36.0) Red Cell Distribution Width 13.2 % (11.6-14.8) Platelet Count 253 K/UL (150-450) Mean Platelet Volume 5.3 FL (6.5-10.1) L Neutrophils (%) (Auto) 64.5 % (45.0-75.0) Lymphocytes (%) (Auto) 22.8 % (20.0-45.0) Monocytes (%) (Auto) 7.9 % (1.0-10.0) Eosinophils (%) (Auto) 4.1 % (0.0-3.0) H Basophils (%) (Auto) 0.7 % (0.0-2.0) Sodium Level 144 MMOL/L (136-145) Potassium Level 4.5 MMOL/L (3.5-5.1) Chloride Level 108 MMOL/L (98-107) H Carbon Dioxide Level 27 MMOL/L (21-32) Anion Gap 9 mmol/L (5-15) Blood Urea Nitrogen 32 mg/dL (7-18) H Creatinine 1.6 MG/DL (0.55-1.30) H Estimat Glomerular Filtration Rate 43.1 mL/min (>60) Glucose Level 336 MG/DL (74-106) H Calcium Level 9.1 MG/DL (8.5-10.1) Objective HEAD AND NECK: No JVD. LUNGS: Have decreased breath sounds. CARDIOVASCULAR: Regular S1 and S2 with no gallop or murmur. ABDOMEN: Obese. EXTREMITIES: 1+ pitting edema. Bernardo Stein MD Jul 17, 2019 11:01
[2019-07-17] MEDS ORDERED: Levemir Flexpen SUBQ SCH (11:30)
[2019-07-17 12:00] VITALS: BP 134/73
--- NOTE | 2019-07-17 13:14 | Surgery Progress Note ---
Surgery Progress Note Subjective Additional Comments Patient seen and examined at bedside. No acute events. No nausea vomiting fever chills. Is awake alert states he feels very well. Has no complaints. Tolerating diet. Wants more food. Not ambulatory. Labs noted. Objective Last 24 Hour Vital Signs Date Time Temp Pulse Resp B/P (MAP) Pulse Ox O2 Delivery O2 Flow Rate FiO2 07/17/19 08:35 53 121/54 07/17/19 08:00 52 07/17/19 08:00 Nasal Cannula 2.0 07/17/19 08:00 98.0 53 18 121/54 (76) 98 07/17/19 04:00 Nasal Cannula 2.0 07/17/19 04:00 98.3 63 20 115/51 (72) 97 07/17/19 03:19 54 07/17/19 00:00 Nasal Cannula 2.0 07/17/19 00:00 98.3 62 20 132/53 (79) 97 07/16/19 23:45 59 07/16/19 20:57 63 125/60 07/16/19 20:00 97.9 73 20 118/69 (85) 97 07/16/19 20:00 72 07/16/19 20:00 Nasal Cannula 2.0 07/16/19 16:00 Nasal Cannula 2.0 07/16/19 16:00 98.5 71 16 136/61 (86) 99 07/16/19 15:25 66 I&O Intake and Output 07/16/19 07/17/19 19:00 07:00 Intake Total 753.33 ml 420 ml Output Total 1795 ml Balance -1041.67 ml 420 ml Intake Oral 480 ml 420 ml IV Total 273.33 ml Output Urine Total 1795 ml # Voids 1 Dressing: saturated Wound: other Drains: other Cardiovascular: RSR Respiratory: decreased breath sounds Abdomen: soft, non-tender, present bowel sounds, non-distended Extremities: no edema, no tenderness, no cyanosis Laboratory Tests Test 07/17/19 03:05 White Blood Count 7.1 K/UL (4.8-10.8) Red Blood Count 2.71 M/UL (4.70-6.10) L Hemoglobin 8.3 G/DL (14.2-18.0) L Hematocrit 24.0 % (42.0-52.0) L Mean Corpuscular Volume 88 FL (80-99) Mean Corpuscular Hemoglobin 30.7 PG (27.0-31.0) Mean Corpuscular Hemoglobin Concent 34.6 G/DL (32.0-36.0) Red Cell Distribution Width 13.2 % (11.6-14.8) Platelet Count 253 K/UL (150-450) Mean Platelet Volume 5.3 FL (6.5-10.1) L Neutrophils (%) (Auto) 64.5 % (45.0-75.0) Lymphocytes (%) (Auto) 22.8 % (20.0-45.0) Monocytes (%) (Auto) 7.9 % (1.0-10.0) Eosinophils (%) (Auto) 4.1 % (0.0-3.0) H Basophils (%) (Auto) 0.7 % (0.0-2.0) Sodium Level 144 MMOL/L (136-145) Potassium Level 4.5 MMOL/L (3.5-5.1) Chloride Level 108 MMOL/L (98-107) H Carbon Dioxide Level 27 MMOL/L (21-32) Anion Gap 9 mmol/L (5-15) Blood Urea Nitrogen 32 mg/dL (7-18) H Creatinine 1.6 MG/DL (0.55-1.30) H Estimat Glomerular Filtration Rate 43.1 mL/min (>60) Glucose Level 336 MG/DL (74-106) H Calcium Level 9.1 MG/DL (8.5-10.1) Plan Problems: (1) Decubitus skin ulcer Assessment & Plan: Patient presented on admission with full thickness stage 4 pressure injury L buttocks (L)1.1cm x (W)1.5cm x (D)0.3cm. Base of wound is sapphire and moist. Borders are macerated .Surrounding non-blanching erythema without induration. Pt complained of pain when minimally palpated. Base of scrotum is erythematous with small area of shearing noted. Medial boggy with non-blanching erythema. Pt yells when minimally palpated. (L) 5.5cm x (W)5cm. Historical scar L heel. L heel is boggy but blanchable. Tx.Plan: Cleanse L buttocks with Saline. Apply TheraHoney. Apply Moisture Barrier Paste periwound. Cover with Optifoam Drsg Daily and prn. Apply Moisture Barrier Paste to scrotum with each Incontinence care. Apply Cavilon Skin Barrier to both heels. Cover each heel with Optifoam drsg. Change every 7 days and prn. Reposition at least every 2hours or as tolerated. Off-load heels with pillow. APM/IRIS Mattress overlay. (2) Gastrointestinal hemorrhage Assessment & Plan: Patient with coffee-ground emesis possible GI bleed severe anemia requiring transfusion Currently no active bleeding noted Agree with GI recommend endoscopy/colonoscopy for evaluation PPI N.p.o. IV fluids Trend labs We will follow with recommendations as work-up completed thank you for let me participate in patient's care repeat egd at bedside in ICU with possible etiology identified and hemostasis will monitor trend h/h downgraded Improving Discharge planning Diet as tolerated Continue PPI There is a small left inguinal hernia which contains only fat. There are colonic diverticula. There is considerable retained stool within the proximal sigmoid colon. There is no evidence of acute diverticulitis. The appendix is normal. No small bowel distention. No free or loculated intraperitoneal gas or fluid is evident. The stomach is mildly distended with gas. No downstream obstructive lesion is demonstrated, however. The duodenum and distal esophagus are unremarkable. Lack of IV contrast limits assessment of solid organs. The liver is grossly unremarkable. The gallbladder contains gallstones. No biliary ductal dilatation. The pancreas is unremarkable. The spleen demonstrates an accessory splenule, is otherwise unremarkable. The adrenals are unremarkable. The kidneys demonstrate bilateral nonspecific perinephric fat stranding. No definite focal abnormality. No hydronephrosis or hydroureter or renal or ureteral calculi demonstrated. The kidneys are somewhat atrophic. The bladder is mildly distended. No pelvic mass demonstrated. There are some prominent iliac chain nodes bilaterally, largest on the left measuring up to 19 mm long axis dimension. There are also prominent retroperitoneal nodes, largest measuring 2.4 cm long axis dimension, 1.1 cm short axis dimension. No pelvic mass. 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 There is considerable heterotopic ossification of the left hip region. Some surgical scarring is seen in the left hip region soft tissues. There are degenerative changes of the lumbar spine. The included lung bases demonstrate posterior dependent atelectatic changes. Impression: Limited assessment of the GI tract, due to lack of enteric contrast demonstration Mild gastric distention without evidence of downstream obstructive lesion. No acute process otherwise. Cholelithiasis Mildly distended bladder Colonic diverticulosis. No evidence of diverticulitis Nonspecific bilateral perinephric fat stranding Borderline bilateral iliac and retroperitoneal lymphadenopathy, of uncertain significance. Could be baseline for this patient versus reactive, less likely indicative of metastatic neoplasm or lymphoproliferative disorder (3) Morbid obesity Good Love Jul 17, 2019 13:14
--- NOTE | 2019-07-17 13:49 | Nephrology Progress Note ---
Assessment/Plan Problem List: (1) Renal failure (ARF), acute on chronic Assessment: Reactant and down to 1.6 (2) Dehydration (3) Gastrointestinal hemorrhage (4) Diabetes mellitus (5) Anemia (6) Electrolyte imbalance Assessment Upper GI bleed and coffee-ground emesis etiology unclear Acute on chronic renal failure Dehydration Electrolyte imbalance. Hyponatremia Anemia worsened since yesterday Obesity Diabetes and history of diabetic nephropathy significant elevation of hemoglobin A1c Plan Creatinine remains stable at 1.6 today Hgb stabilizing Endoscopy results noted And another upper endoscopy today showing active duodenal ulcer transfusion done July 10 and more transfusion will be done today Magnesium sulfate IV supplement Keep n.p.o. on Protonix drip Renal parameters improved IV hydration Keep the blood sugar in check with sliding scale insulin Urine studies Monitor renal parameters Keep the blood pressure and blood sugar in check Anemia work-up Continue per GI advice Subjective ROS Limited/Unobtainable: No Constitutional: Reports: malaise Objective Objective Last 24 Hour Vital Signs Date Time Temp Pulse Resp B/P (MAP) Pulse Ox O2 Delivery O2 Flow Rate FiO2 07/17/19 12:00 61 07/17/19 12:00 98.2 72 18 134/73 (93) 98 07/17/19 12:00 Nasal Cannula 2.0 07/17/19 08:35 53 121/54 07/17/19 08:00 52 07/17/19 08:00 Nasal Cannula 2.0 07/17/19 08:00 98.0 53 18 121/54 (76) 98 07/17/19 04:00 Nasal Cannula 2.0 07/17/19 04:00 98.3 63 20 115/51 (72) 97 07/17/19 03:19 54 07/17/19 00:00 Nasal Cannula 2.0 07/17/19 00:00 98.3 62 20 132/53 (79) 97 07/16/19 23:45 59 07/16/19 20:57 63 125/60 07/16/19 20:00 97.9 73 20 118/69 (85) 97 07/16/19 20:00 72 07/16/19 20:00 Nasal Cannula 2.0 07/16/19 16:00 Nasal Cannula 2.0 07/16/19 16:00 98.5 71 16 136/61 (86) 99 07/16/19 15:25 66 Intake and Output 07/16/19 07/17/19 19:00 07:00 Intake Total 753.33 ml 420 ml Output Total 1795 ml Balance -1041.67 ml 420 ml Intake Oral 480 ml 420 ml IV Total 273.33 ml Output Urine Total 1795 ml # Voids 1 Current Medications Medications (Trade) Dose Ordered Sig/Jayden Route PRN Reason Start Time Stop Time Status Last Admin Dose Admin Acetaminophen (Tylenol) 650 mg Q4H PRN ORAL Mild Pain/Temp > 100.5 07/16/19 12:15 08/08/19 04:14 Artificial Tears (Akwa-Tears) 2 drop EVERY 6 HOURS BOTH EYES 07/17/19 00:00 08/16/19 00:00 07/17/19 12:09 Atorvastatin Calcium (Lipitor) 10 mg BEDTIME ORAL 07/16/19 21:00 08/08/19 20:59 07/16/19 20:58 Bisacodyl (Dulcolax) 10 mg DAILY ORAL 07/17/19 09:00 08/09/19 08:59 07/17/19 08:35 Dextrose (Dextrose 50%) 25 ml Q30M PRN IV Hypoglycemia 07/17/19 11:30 10/15/19 11:29 Dextrose (Dextrose 50%) 50 ml Q30M PRN IV Hypoglycemia 07/17/19 11:30 10/15/19 11:29 Escitalopram Oxalate (Lexapro) 10 mg DAILY ORAL 07/17/19 09:00 08/09/19 08:59 07/17/19 08:35 Gabapentin (Neurontin) 400 mg THREE TIMES A DAY ORAL 07/16/19 13:00 08/09/19 08:59 07/17/19 12:10 Hydralazine HCl (Apresoline) 25 mg Q4H PRN ORAL bp over 160 syst 07/16/19 11:30 08/08/19 11:29 Insulin Aspart (NovoLOG) BEFORE MEALS AND HS SUBQ 07/16/19 11:30 08/08/19 20:59 07/17/19 12:08 Insulin Aspart (NovoLOG) 6 units NOVOTIAC SUBQ 07/17/19 11:50 10/15/19 11:49 07/17/19 12:09 Insulin Detemir (Levemir) 18 units DAILY SUBQ 07/17/19 11:30 10/15/19 11:29 07/17/19 12:07 Metoprolol Tartrate (Lopressor) 25 mg EVERY 12 HOURS ORAL 07/16/19 21:00 08/14/19 10:59 07/16/19 20:57 Ondansetron HCl (Zofran) 4 mg Q6H PRN IVP Nausea & Vomiting 07/16/19 11:30 08/12/19 17:24 Ondansetron HCl (Zofran) 4 mg Q6H PRN ORAL Nausea & Vomiting 07/16/19 11:30 08/08/19 11:29 Pantoprazole (Protonix) 40 mg EVERY 12 HOURS IVP 07/16/19 21:00 08/15/19 20:59 07/17/19 08:34 Polyethylene Glycol (Miralax) 17 gm BEDTIME ORAL 07/16/19 21:00 08/15/19 20:59 07/16/19 20:55 Risperidone (RisperDAL) 2 mg DAILY ORAL 07/17/19 09:00 08/24/19 08:59 07/17/19 08:36 Sennosides (Senokot) 8.6 mg EVERY 12 HOURS ORAL 07/16/19 21:00 08/14/19 20:59 07/17/19 08:36 Sennosides (Senokot) 8.6 mg Q6H PRN ORAL Constipation 07/16/19 11:30 08/08/19 11:29 Tamsulosin HCl (Flomax) 0.4 mg QHS ORAL 07/16/19 21:00 08/08/19 20:59 07/16/19 20:56 Temazepam (Restoril) 15 mg BEDTIME PRN ORAL Insomnia 07/16/19 21:00 07/23/19 18:14 07/16/19 20:56 Laboratory Tests 07/17/19 03:05: White Blood Count 7.1, Red Blood Count 2.71L, Hemoglobin 8.3L, Hematocrit 24.0L , Mean Corpuscular Volume 88, Mean Corpuscular Hemoglobin 30.7, Mean Corpuscular Hemoglobin Concent 34.6, Red Cell Distribution Width 13.2, Platelet Count 253, Mean Platelet Volume 5.3L, Neutrophils (%) (Auto) 64.5, Lymphocytes ( %) (Auto) 22.8, Monocytes (%) (Auto) 7.9, Eosinophils (%) (Auto) 4.1H, Basophils (%) (Auto) 0.7, Sodium Level 144, Potassium Level 4.5, Chloride Level 108H, Carbon Dioxide Level 27, Anion Gap 9, Blood Urea Nitrogen 32H, Creatinine 1.6H, Estimat Glomerular Filtration Rate 43.1, Glucose Level 336H, Calcium Level 9.1 Height (Feet): 5 Height (Inches): 7.00 Weight (Pounds): 213 General Appearance: no apparent distress Cardiovascular: normal rate Respiratory/Chest: decreased breath sounds Abdomen: distended Objective No change Dawson Doty MD Jul 17, 2019 13:49
[2019-07-17] MEDS ORDERED: NS 275ml ONE (14:20)
[2019-07-17] MEDS ORDERED: 1/2 NS 1000ml IV ONE (14:20)
[2019-07-17] MEDS ORDERED: Tubing IV Secondary IV ONE (14:20)
--- NOTE | 2019-07-17 15:00 | General Progress Note ---
Assessment/Plan Problem List: (1) Diabetes mellitus ICD Codes: E11.9 - Type 2 diabetes mellitus without complications SNOMED: 93770577 (2) Morbid obesity ICD Codes: E66.01 - Morbid (severe) obesity due to excess calories SNOMED: 478907823 (3) Gastrointestinal hemorrhage ICD Codes: K92.2 - Gastrointestinal hemorrhage, unspecified SNOMED: 91480891 Qualifiers: Qualified Codes: K92.2 - Gastrointestinal hemorrhage, unspecified (4) Anemia ICD Codes: D64.9 - Anemia, unspecified SNOMED: 449674801 (5) Renal failure (ARF), acute on chronic ICD Codes: N17.9 - Acute kidney failure, unspecified; N18.9 - Chronic kidney disease, unspecified SNOMED: 567954791 (6) Hemoptysis ICD Codes: R04.2 - Hemoptysis SNOMED: 02373159 Status: stable, progressing Assessment/Plan: pt diet gi/neph f/u cbc bmp am transfuse prn aru eval Subjective Constitutional: Reports: weakness Allergies: Coded Allergies: ASPIRIN (Verified Allergy, Unknown, 11/22/17) PENICILLINS (Verified Allergy, Unknown, 11/22/17) SULFAMETHOXAZOLE (Verified Allergy, Unknown, 11/22/17) TRIMETHOPRIM (Verified Allergy, Unknown, 11/22/17) All Systems: reviewed and negative except above Subjective o2nc sleepy Objective Last 24 Hour Vital Signs Date Time Temp Pulse Resp B/P (MAP) Pulse Ox O2 Delivery O2 Flow Rate FiO2 07/17/19 12:00 61 07/17/19 12:00 98.2 72 18 134/73 (93) 98 07/17/19 12:00 Nasal Cannula 2.0 07/17/19 08:35 53 121/54 07/17/19 08:00 52 07/17/19 08:00 Nasal Cannula 2.0 07/17/19 08:00 98.0 53 18 121/54 (76) 98 07/17/19 04:00 Nasal Cannula 2.0 07/17/19 04:00 98.3 63 20 115/51 (72) 97 07/17/19 03:19 54 07/17/19 00:00 Nasal Cannula 2.0 07/17/19 00:00 98.3 62 20 132/53 (79) 97 3/17/20 23:45 59 07/16/19 20:57 63 125/60 07/16/19 20:00 97.9 73 20 118/69 (85) 97 07/16/19 20:00 72 07/16/19 20:00 Nasal Cannula 2.0 07/16/19 16:00 Nasal Cannula 2.0 07/16/19 16:00 98.5 71 16 136/61 (86) 99 07/16/19 15:25 66 Intake and Output 07/16/19 07/17/19 19:00 07:00 Intake Total 753.33 ml 420 ml Output Total 1795 ml Balance -1041.67 ml 420 ml Intake Oral 480 ml 420 ml IV Total 273.33 ml Output Urine Total 1795 ml # Voids 1 Laboratory Tests 07/17/19 03:05: White Blood Count 7.1, Red Blood Count 2.71L, Hemoglobin 8.3L, Hematocrit 24.0L , Mean Corpuscular Volume 88, Mean Corpuscular Hemoglobin 30.7, Mean Corpuscular Hemoglobin Concent 34.6, Red Cell Distribution Width 13.2, Platelet Count 253, Mean Platelet Volume 5.3L, Neutrophils (%) (Auto) 64.5, Lymphocytes ( %) (Auto) 22.8, Monocytes (%) (Auto) 7.9, Eosinophils (%) (Auto) 4.1H, Basophils (%) (Auto) 0.7, Sodium Level 144, Potassium Level 4.5, Chloride Level 108H, Carbon Dioxide Level 27, Anion Gap 9, Blood Urea Nitrogen 32H, Creatinine 1.6H, Estimat Glomerular Filtration Rate 43.1, Glucose Level 336H, Calcium Level 9.1 Height (Feet): 5 Height (Inches): 7.00 Weight (Pounds): 213 General Appearance: lethargic EENT: normal ENT inspection Neck: normal alignment Cardiovascular: normal peripheral pulses, normal rate, regular rhythm Respiratory/Chest: chest wall non-tender, lungs clear, normal breath sounds Abdomen: normal bowel sounds, non tender, soft Extremities: normal inspection Edema: no edema noted Arm (L), no edema noted Arm (R), no edema noted Leg (L), no edema noted Leg (R), no edema noted Pedal (L), no edema noted Pedal (R), no edema noted Generalized Neurologic: motor weakness Skin: normal pigmentation, warm/dry Joe Salinas DO Jul 17, 2019 15:00
[2019-07-17 16:00] VITALS: BP 144/72
[2019-07-17] MEDS ORDERED: NovoLOG Insulin Flexpen SUBQ SCH ×2 (17:00→22:30)
[2019-07-17 20:00] VITALS: BP 129/62
[2019-07-17] MEDS: Miralax 17gm pkt ORAL SCH (20:27)
[2019-07-17] MEDS: Tamsulosin 0.4mg cap ORAL SCH (20:30)
[2019-07-18] VITALS: BP 117/61
[2019-07-18 04:00] VITALS: BP 127/70
[2019-07-18 05:10] LABS: BASOPHILS % (AUTO) 0.6 % (0.0-2.0); EOSINOPHILS % (AUTO) 5.2 % (0.0-3.0); HEMATOCRIT 25.7 % (42.0-52.0); HEMOGLOBIN 8.9 G/DL (14.2-18.0); LYMPHOCYTES % (AUTO) 24.5 % (20.0-45.0); MEAN CORPUSCULAR VOLUME 88 FL (80-99); MONOCYTES % (AUTO) 7.4 % (1.0-10.0); NEUTROPHILS % (AUTO) 62.4 % (45.0-75.0); PLATELET COUNT 274 K/UL (150-450); RED BLOOD COUNT 2.93 M/UL (4.70-6.10); RED CELL DISTRIBUTION WIDTH 13.2 % (11.6-14.8); WHITE BLOOD COUNT 7.3 K/UL (4.8-10.8)
[2019-07-18 06:03] LABS: ANION GAP 11 mmol/L (5-15); BLOOD UREA NITROGEN 36 mg/dL (7-18); CALCIUM 9.3 MG/DL (8.5-10.1); CARBON DIOXIDE 29 MMOL/L (21-32); CHLORIDE 107 MMOL/L (98-107); CREATININE 1.5 MG/DL (0.55-1.30); POTASSIUM 4.2 MMOL/L (3.5-5.1); SODIUM 146 MMOL/L (136-145)
--- NOTE | 2019-07-18 06:14 | Hematology/Onc Progress Note ---
Assessment/Plan Assessment/Plan EGD Operative Findings/Diagnosis: Bulb DU, shallow, white based, 1/3 circumferential, not active bleeding Assessment and Recs: # Anemia due to gi bleed, no evidence of hemolysis, on presentation hgb 6.3, egd Bulb DU, shallow, white based, 1/3 circumferential, not active bleeding --> transfused with several units of prbc --> egd completed showing non active bleeding --> anemia panel also reviewed as well --> peripheral smear is noted --> meds reviewed # Hyperocag disorder with transient atrial fib --> bb, mtp as per cards --> hold off on anticoag # Decubitus skin ulcer --> matress, therahoney, moisture barrier --> turn as needed --> per wound care, surg # Hypertension. On metoprolol 25 b.i.d. --> on mtp, as per cards # Soto likely due to dehydration, volume down --> per renal, ivf # Hyperlipidemia, on Lipitor. # BPH on Flomax. # Psychiatric disorder. # Dvt ppx scds Appreciate consultation and dw RN Subjective Constitutional: Denies: no symptoms, chills, fever, malaise, weakness, other Cardiovascular: Denies: no symptoms, chest pain, edema, irregular heart rate, lightheadedness, palpitations, syncope, other Respiratory: Denies: no symptoms, cough, shortness of breath, SOB with excertion, SOB at rest, sputum, wheezing, other Neurologic/Psychiatric: Denies: no symptoms, anxiety, depressed, emotional problems, headache, numbness, paresthesia, pre-existing deficit, seizure, tingling, tremors, weakness, other Endocrine: Denies: no symptoms, excessive sweating, flushing, intolerance to cold, intolerance to heat, increased hunger, increased thirst, increased urine, unexplained weight gain, unexplained weight loss, other Allergies: Coded Allergies: ASPIRIN (Verified Allergy, Unknown, 11/22/17) PENICILLINS (Verified Allergy, Unknown, 11/22/17) SULFAMETHOXAZOLE (Verified Allergy, Unknown, 11/22/17) TRIMETHOPRIM (Verified Allergy, Unknown, 11/22/17) Subjective 07/17 labs noted, remains on 2lnc, no bleeding, no events, meds reviewed, hgb 8.9 Objective Objective Current Medications Medications (Trade) Dose Ordered Sig/Jayden Route PRN Reason Start Time Stop Time Status Last Admin Dose Admin Acetaminophen (Tylenol) 650 mg Q4H PRN ORAL Mild Pain/Temp > 100.5 07/16/19 12:15 08/08/19 04:14 Artificial Tears (Akwa-Tears) 2 drop EVERY 6 HOURS BOTH EYES 07/17/19 00:00 08/16/19 00:00 07/18/19 00:22 Atorvastatin Calcium (Lipitor) 10 mg BEDTIME ORAL 07/16/19 21:00 08/08/19 20:59 07/17/19 20:29 Bisacodyl (Dulcolax) 10 mg DAILY ORAL 07/17/19 09:00 08/09/19 08:59 07/17/19 08:35 Dextrose (Dextrose 50%) 25 ml Q30M PRN IV Hypoglycemia 07/17/19 11:30 10/15/19 11:29 Dextrose (Dextrose 50%) 50 ml Q30M PRN IV Hypoglycemia 07/17/19 11:30 10/15/19 11:29 Escitalopram Oxalate (Lexapro) 10 mg DAILY ORAL 07/17/19 09:00 08/09/19 08:59 07/17/19 08:35 Gabapentin (Neurontin) 400 mg THREE TIMES A DAY ORAL 07/16/19 13:00 08/09/19 08:59 07/17/19 17:07 Hydralazine HCl (Apresoline) 25 mg Q4H PRN ORAL bp over 160 syst 07/16/19 11:30 08/08/19 11:29 Insulin Aspart (NovoLOG) BEFORE MEALS AND HS SUBQ 07/16/19 11:30 08/08/19 20:59 07/17/19 20:27 Insulin Aspart (NovoLOG) 6 units NOVOTIAC SUBQ 07/17/19 11:50 10/15/19 11:49 07/17/19 17:06 Insulin Detemir (Levemir) 18 units DAILY SUBQ 07/17/19 11:30 10/15/19 11:29 07/17/19 12:07 Metoprolol Tartrate (Lopressor) 25 mg EVERY 12 HOURS ORAL 07/16/19 21:00 08/14/19 10:59 07/17/19 20:53 Ondansetron HCl (Zofran) 4 mg Q6H PRN IVP Nausea & Vomiting 07/16/19 11:30 08/12/19 17:24 Ondansetron HCl (Zofran) 4 mg Q6H PRN ORAL Nausea & Vomiting 07/16/19 11:30 08/08/19 11:29 Pantoprazole (Protonix) 40 mg EVERY 12 HOURS IVP 07/16/19 21:00 08/15/19 20:59 07/17/19 20:27 Polyethylene Glycol (Miralax) 17 gm BEDTIME ORAL 07/16/19 21:00 08/15/19 20:59 07/17/19 20:27 Risperidone (RisperDAL) 2 mg DAILY ORAL 07/17/19 09:00 08/24/19 08:59 07/17/19 08:36 Sennosides (Senokot) 8.6 mg EVERY 12 HOURS ORAL 07/16/19 21:00 08/14/19 20:59 07/17/19 20:29 Sennosides (Senokot) 8.6 mg Q6H PRN ORAL Constipation 07/16/19 11:30 08/08/19 11:29 Tamsulosin HCl (Flomax) 0.4 mg QHS ORAL 07/16/19 21:00 08/08/19 20:59 07/17/19 20:30 Temazepam (Restoril) 15 mg BEDTIME PRN ORAL Insomnia 07/16/19 21:00 07/23/19 18:14 07/16/19 20:56 Last 24 Hour Vital Signs Date Time Temp Pulse Resp B/P (MAP) Pulse Ox O2 Delivery O2 Flow Rate FiO2 07/18/19 04:00 Nasal Cannula 2.0 07/18/19 04:00 98.7 62 24 127/70 (89) 98 07/18/19 02:59 54 07/18/19 00:00 Nasal Cannula 2.0 07/18/19 00:00 98.4 66 24 117/61 (79) 99 07/18/19 00:00 65 07/17/19 20:53 64 129/62 07/17/19 20:00 Nasal Cannula 2.0 07/17/19 20:00 98.4 64 20 129/62 (84) 98 07/17/19 19:20 73 07/17/19 19:00 96 Nasal Cannula 2.0 28 07/17/19 16:00 Nasal Cannula 2.0 07/17/19 16:00 98.9 81 18 144/72 (96) 97 07/17/19 16:00 68 07/17/19 16:00 68 07/17/19 12:00 61 07/17/19 12:00 98.2 72 18 134/73 (93) 98 07/17/19 12:00 Nasal Cannula 2.0 07/17/19 08:35 53 121/54 07/17/19 08:00 52 07/17/19 08:00 Nasal Cannula 2.0 07/17/19 08:00 98.0 53 18 121/54 (76) 98 07/17/19 04:00 Nasal Cannula 2.0 07/17/19 04:00 98.3 63 20 115/51 (72) 97 07/17/19 03:19 54 07/17/19 00:00 Nasal Cannula 2.0 07/17/19 00:00 98.3 62 20 132/53 (79) 97 07/16/19 23:45 59 07/16/19 20:57 63 125/60 07/16/19 20:00 97.9 73 20 118/69 (85) 97 07/16/19 20:00 72 07/16/19 20:00 Nasal Cannula 2.0 07/16/19 16:00 Nasal Cannula 2.0 07/16/19 16:00 98.5 71 16 136/61 (86) 99 07/16/19 15:25 66 07/16/19 12:43 97 Nasal Cannula 2.0 28 07/16/19 12:00 Nasal Cannula 2.0 07/16/19 12:00 98.8 70 16 124/59 (80) 98 07/16/19 11:39 66 07/16/19 11:00 78 12 143/56 (85) 99 07/16/19 10:00 82 16 119/49 (72) 98 07/16/19 09:30 79 20 133/44 (73) 97 07/16/19 09:00 98.2 62 16 130/69 (89) 99 07/16/19 08:56 58 123/46 07/16/19 08:30 58 12 123/46 (71) 99 07/16/19 08:00 84 11 144/49 (80) 100 07/16/19 08:00 81 07/16/19 08:00 Nasal Cannula 2.0 07/16/19 07:00 67 13 132/55 (80) 98 Intake and Output 07/17/19 07/18/19 19:00 07:00 Intake Total 1200 ml Balance 1200 ml Intake Oral 1200 ml # Voids 7 Labs Test 07/15/19 11:00 07/15/19 19:50 07/16/19 02:50 07/17/19 03:05 Troponin I 0.008 ng/mL (0.000-0.056) 0.000 ng/mL (0.000-0.056) 0.000 ng/mL (0.000-0.056) White Blood Count 5.9 K/UL (4.8-10.8) 7.1 K/UL (4.8-10.8) Red Blood Count 2.51 M/UL (4.70-6.10) 2.71 M/UL (4.70-6.10) Hemoglobin 7.8 G/DL (14.2-18.0) 8.3 G/DL (14.2-18.0) Hematocrit 22.1 % (42.0-52.0) 24.0 % (42.0-52.0) Mean Corpuscular Volume 88 FL (80-99) 88 FL (80-99) Mean Corpuscular Hemoglobin 31.0 PG (27.0-31.0) 30.7 PG (27.0-31.0) Mean Corpuscular Hemoglobin Concent 35.2 G/DL (32.0-36.0) 34.6 G/DL (32.0-36.0) Red Cell Distribution Width 12.7 % (11.6-14.8) 13.2 % (11.6-14.8) Platelet Count 231 K/UL (150-450) 253 K/UL (150-450) Mean Platelet Volume 5.4 FL (6.5-10.1) 5.3 FL (6.5-10.1) Neutrophils (%) (Auto) % (45.0-75.0) 64.5 % (45.0-75.0) Lymphocytes (%) (Auto) % (20.0-45.0) 22.8 % (20.0-45.0) Monocytes (%) (Auto) % (1.0-10.0) 7.9 % (1.0-10.0) Eosinophils (%) (Auto) % (0.0-3.0) 4.1 % (0.0-3.0) Basophils (%) (Auto) % (0.0-2.0) 0.7 % (0.0-2.0) Differential Total Cells Counted 100 Neutrophils % (Manual) 65 % (45-75) Lymphocytes % (Manual) 18 % (20-45) Monocytes % (Manual) 11 % (1-10) Eosinophils % (Manual) 6 % (0-3) Basophils % (Manual) 0 % (0-2) Band Neutrophils 0 % (0-8) Platelet Estimate Adequate Platelet Morphology Normal Hypochromasia 1+ Sodium Level 138 MMOL/L (136-145) 144 MMOL/L (136-145) Potassium Level 4.0 MMOL/L (3.5-5.1) 4.5 MMOL/L (3.5-5.1) Chloride Level 105 MMOL/L (98-107) 108 MMOL/L (98-107) Carbon Dioxide Level 27 MMOL/L (21-32) 27 MMOL/L (21-32) Anion Gap 6 mmol/L (5-15) 9 mmol/L (5-15) Blood Urea Nitrogen 28 mg/dL (7-18) 32 mg/dL (7-18) Creatinine 1.7 MG/DL (0.55-1.30) 1.6 MG/DL (0.55-1.30) Estimat Glomerular Filtration Rate 40.2 mL/min (>60) 43.1 mL/min (>60) Glucose Level 310 MG/DL (74-106) 336 MG/DL (74-106) Calcium Level 8.2 MG/DL (8.5-10.1) 9.1 MG/DL (8.5-10.1) Test 07/18/19 03:25 White Blood Count 7.3 K/UL (4.8-10.8) Red Blood Count 2.93 M/UL (4.70-6.10) Hemoglobin 8.9 G/DL (14.2-18.0) Hematocrit 25.7 % (42.0-52.0) Mean Corpuscular Volume 88 FL (80-99) Mean Corpuscular Hemoglobin 30.5 PG (27.0-31.0) Mean Corpuscular Hemoglobin Concent 34.8 G/DL (32.0-36.0) Red Cell Distribution Width 13.2 % (11.6-14.8) Platelet Count 274 K/UL (150-450) Mean Platelet Volume 5.4 FL (6.5-10.1) Neutrophils (%) (Auto) 62.4 % (45.0-75.0) Lymphocytes (%) (Auto) 24.5 % (20.0-45.0) Monocytes (%) (Auto) 7.4 % (1.0-10.0) Eosinophils (%) (Auto) 5.2 % (0.0-3.0) Basophils (%) (Auto) 0.6 % (0.0-2.0) Sodium Level 146 MMOL/L (136-145) Potassium Level 4.2 MMOL/L (3.5-5.1) Chloride Level 107 MMOL/L (98-107) Carbon Dioxide Level 29 MMOL/L (21-32) Anion Gap 11 mmol/L (5-15) Blood Urea Nitrogen 36 mg/dL (7-18) Creatinine 1.5 MG/DL (0.55-1.30) Estimat Glomerular Filtration Rate 46.4 mL/min (>60) Glucose Level 241 MG/DL (74-106) Calcium Level 9.3 MG/DL (8.5-10.1) Height (Feet): 5 Height (Inches): 7.00 Weight (Pounds): 213 Objective Physical Exam General: well appearing, no apparent distress, alert HEENT: PERRL/EOMI, normal ENT inspection Neck: supple Resp: normal breath sounds, no respiratory distress Cv: normal rate Marlon: no ttp, nd Rectal: deferred Msk: normal inspection, back normal Neurologic: alert, oriented x3 Psychiatric: normal inspection, judgement/insight normal, memory normal Yaniv Storey MD Jul 18, 2019 06:14
[2019-07-18] MEDS: NovoLOG Insulin Flexpen SUBQ SCH ×7 (06:22→22:50)
[2019-07-18] MEDS ORDERED: NovoLOG Insulin Flexpen SUBQ SCH (06:49)
[2019-07-18] MEDS: Levemir Flexpen SUBQ SCH ×3 (07:00→18:59)
[2019-07-18 08:00] VITALS: BP 123/59
--- NOTE | 2019-07-18 08:23 | General Progress Note ---
Assessment/Plan Status: stable, progressing Assessment/Plan: gib gastric ulcer duodenal ulcer stable labs today no obvious bleeding per nurses ppi fu cbc>>>stable on diet dc planning per primary team Subjective ROS Limited/Unobtainable: Yes Allergies: Coded Allergies: ASPIRIN (Verified Allergy, Unknown, 11/22/17) PENICILLINS (Verified Allergy, Unknown, 11/22/17) SULFAMETHOXAZOLE (Verified Allergy, Unknown, 11/22/17) TRIMETHOPRIM (Verified Allergy, Unknown, 11/22/17) Objective Last 24 Hour Vital Signs Date Time Temp Pulse Resp B/P (MAP) Pulse Ox O2 Delivery O2 Flow Rate FiO2 07/18/19 04:00 Nasal Cannula 2.0 07/18/19 04:00 98.7 62 24 127/70 (89) 98 07/18/19 02:59 54 07/18/19 00:00 Nasal Cannula 2.0 07/18/19 00:00 98.4 66 24 117/61 (79) 99 07/18/19 00:00 65 07/17/19 20:53 64 129/62 07/17/19 20:00 Nasal Cannula 2.0 07/17/19 20:00 98.4 64 20 129/62 (84) 98 07/17/19 19:20 73 07/17/19 19:00 96 Nasal Cannula 2.0 28 07/17/19 16:00 Nasal Cannula 2.0 07/17/19 16:00 98.9 81 18 144/72 (96) 97 07/17/19 16:00 68 07/17/19 16:00 68 07/17/19 12:00 61 07/17/19 12:00 98.2 72 18 134/73 (93) 98 07/17/19 12:00 Nasal Cannula 2.0 07/17/19 08:35 53 121/54 Intake and Output 07/17/19 07/18/19 19:00 07:00 Intake Total 1200 ml Balance 1200 ml Intake Oral 1200 ml # Voids 7 Laboratory Tests 07/18/19 03:25: White Blood Count 7.3, Red Blood Count 2.93L, Hemoglobin 8.9L, Hematocrit 25.7L , Mean Corpuscular Volume 88, Mean Corpuscular Hemoglobin 30.5, Mean Corpuscular Hemoglobin Concent 34.8, Red Cell Distribution Width 13.2, Platelet Count 274, Mean Platelet Volume 5.4L, Neutrophils (%) (Auto) 62.4, Lymphocytes ( %) (Auto) 24.5, Monocytes (%) (Auto) 7.4, Eosinophils (%) (Auto) 5.2H, Basophils (%) (Auto) 0.6, Sodium Level 146H, Potassium Level 4.2, Chloride Level 107, Carbon Dioxide Level 29, Anion Gap 11, Blood Urea Nitrogen 36H, Creatinine 1.5H, Estimat Glomerular Filtration Rate 46.4, Glucose Level 241H, Calcium Level 9.3 Height (Feet): 5 Height (Inches): 7.00 Weight (Pounds): 225 General Appearance: alert EENT: normal ENT inspection Neck: supple Cardiovascular: normal rate Respiratory/Chest: decreased breath sounds Abdomen: normal bowel sounds, non tender, soft Extremities: non-tender Shin Browne MD Jul 18, 2019 08:23
[2019-07-18] MEDS: Bisacodyl EC 5mg tab ORAL SCH (09:01)
[2019-07-18] MEDS: Pantoprazole Inj IVP SCH (09:01)
[2019-07-18] MEDS: Sennosides 8.6mg tab ORAL SCH ×2 (09:03→22:24)
--- NOTE | 2019-07-18 11:02 | General Progress Note ---
Assessment/Plan Problem List: (1) Diabetes mellitus ICD Codes: E11.9 - Type 2 diabetes mellitus without complications SNOMED: 81924812 (2) Morbid obesity ICD Codes: E66.01 - Morbid (severe) obesity due to excess calories SNOMED: 979458343 (3) Gastrointestinal hemorrhage ICD Codes: K92.2 - Gastrointestinal hemorrhage, unspecified SNOMED: 22403976 Qualifiers: Qualified Codes: K92.2 - Gastrointestinal hemorrhage, unspecified (4) Anemia ICD Codes: D64.9 - Anemia, unspecified SNOMED: 090276499 (5) Renal failure (ARF), acute on chronic ICD Codes: N17.9 - Acute kidney failure, unspecified; N18.9 - Chronic kidney disease, unspecified SNOMED: 179020828 (6) Hemoptysis ICD Codes: R04.2 - Hemoptysis SNOMED: 95897724 Status: stable, progressing Assessment/Plan: pt diet gi/neph f/u cbc bmp am transfuse prn Subjective Constitutional: Reports: weakness Allergies: Coded Allergies: ASPIRIN (Verified Allergy, Unknown, 11/22/17) PENICILLINS (Verified Allergy, Unknown, 11/22/17) SULFAMETHOXAZOLE (Verified Allergy, Unknown, 11/22/17) TRIMETHOPRIM (Verified Allergy, Unknown, 11/22/17) All Systems: reviewed and negative except above Subjective o2nc sleepy Objective Last 24 Hour Vital Signs Date Time Temp Pulse Resp B/P (MAP) Pulse Ox O2 Delivery O2 Flow Rate FiO2 07/18/19 09:07 84 127/71 07/18/19 04:00 Nasal Cannula 2.0 07/18/19 04:00 98.7 62 24 127/70 (89) 98 07/18/19 02:59 54 07/18/19 00:00 Nasal Cannula 2.0 07/18/19 00:00 98.4 66 24 117/61 (79) 99 07/18/19 00:00 65 07/17/19 20:53 64 129/62 07/17/19 20:00 Nasal Cannula 2.0 07/17/19 20:00 98.4 64 20 129/62 (84) 98 07/17/19 19:20 73 07/17/19 19:00 96 Nasal Cannula 2.0 28 07/17/19 16:00 Nasal Cannula 2.0 07/17/19 16:00 98.9 81 18 144/72 (96) 97 07/17/19 16:00 68 07/17/19 16:00 68 07/17/19 12:00 61 07/17/19 12:00 98.2 72 18 134/73 (93) 98 07/17/19 12:00 Nasal Cannula 2.0 Intake and Output 07/17/19 07/18/19 19:00 07:00 Intake Total 1200 ml Balance 1200 ml Intake Oral 1200 ml # Voids 7 Laboratory Tests 07/18/19 03:25: White Blood Count 7.3, Red Blood Count 2.93L, Hemoglobin 8.9L, Hematocrit 25.7L , Mean Corpuscular Volume 88, Mean Corpuscular Hemoglobin 30.5, Mean Corpuscular Hemoglobin Concent 34.8, Red Cell Distribution Width 13.2, Platelet Count 274, Mean Platelet Volume 5.4L, Neutrophils (%) (Auto) 62.4, Lymphocytes ( %) (Auto) 24.5, Monocytes (%) (Auto) 7.4, Eosinophils (%) (Auto) 5.2H, Basophils (%) (Auto) 0.6, Sodium Level 146H, Potassium Level 4.2, Chloride Level 107, Carbon Dioxide Level 29, Anion Gap 11, Blood Urea Nitrogen 36H, Creatinine 1.5H, Estimat Glomerular Filtration Rate 46.4, Glucose Level 241H, Calcium Level 9.3 Height (Feet): 5 Height (Inches): 7.00 Weight (Pounds): 225 General Appearance: lethargic EENT: normal ENT inspection Neck: normal alignment Cardiovascular: normal peripheral pulses, normal rate, regular rhythm Respiratory/Chest: chest wall non-tender, lungs clear, normal breath sounds Abdomen: normal bowel sounds, non tender, soft Extremities: normal inspection Edema: no edema noted Arm (L), no edema noted Arm (R), no edema noted Leg (L), no edema noted Leg (R), no edema noted Pedal (L), no edema noted Pedal (R), no edema noted Generalized Neurologic: motor weakness Skin: normal pigmentation, warm/dry Joe Salinas DO Jul 18, 2019 11:02
--- NOTE | 2019-07-18 11:20 | Nephrology Progress Note ---
Assessment/Plan Problem List: (1) Renal failure (ARF), acute on chronic Assessment: Reactant and down to 1.5 (2) Dehydration (3) Gastrointestinal hemorrhage (4) Diabetes mellitus (5) Anemia (6) Electrolyte imbalance Assessment Upper GI bleed and coffee-ground emesis etiology unclear Acute on chronic renal failure Dehydration Electrolyte imbalance. Hyponatremia Anemia worsened since yesterday Obesity Diabetes and history of diabetic nephropathy significant elevation of hemoglobin A1c Plan Creatinine remains stable Hgb stabilizing Endoscopy results noted And another upper endoscopy today showing active duodenal ulcer transfusion done July 10 and more transfusion will be done today Magnesium sulfate IV supplement Keep n.p.o. on Protonix drip Renal parameters improved IV hydration Keep the blood sugar in check with sliding scale insulin Urine studies Monitor renal parameters Keep the blood pressure and blood sugar in check Anemia work-up Continue per GI advice Subjective ROS Limited/Unobtainable: No Constitutional: Reports: malaise Objective Objective Last 24 Hour Vital Signs Date Time Temp Pulse Resp B/P (MAP) Pulse Ox O2 Delivery O2 Flow Rate FiO2 07/18/19 09:07 84 127/71 07/18/19 04:00 Nasal Cannula 2.0 07/18/19 04:00 98.7 62 24 127/70 (89) 98 07/18/19 02:59 54 07/18/19 00:00 Nasal Cannula 2.0 07/18/19 00:00 98.4 66 24 117/61 (79) 99 07/18/19 00:00 65 07/17/19 20:53 64 129/62 07/17/19 20:00 Nasal Cannula 2.0 07/17/19 20:00 98.4 64 20 129/62 (84) 98 07/17/19 19:20 73 07/17/19 19:00 96 Nasal Cannula 2.0 28 07/17/19 16:00 Nasal Cannula 2.0 07/17/19 16:00 98.9 81 18 144/72 (96) 97 07/17/19 16:00 68 07/17/19 16:00 68 07/17/19 12:00 61 07/17/19 12:00 98.2 72 18 134/73 (93) 98 07/17/19 12:00 Nasal Cannula 2.0 Intake and Output 07/17/19 07/18/19 19:00 07:00 Intake Total 1200 ml Balance 1200 ml Intake Oral 1200 ml # Voids 7 Laboratory Tests 07/18/19 03:25: White Blood Count 7.3, Red Blood Count 2.93L, Hemoglobin 8.9L, Hematocrit 25.7L , Mean Corpuscular Volume 88, Mean Corpuscular Hemoglobin 30.5, Mean Corpuscular Hemoglobin Concent 34.8, Red Cell Distribution Width 13.2, Platelet Count 274, Mean Platelet Volume 5.4L, Neutrophils (%) (Auto) 62.4, Lymphocytes ( %) (Auto) 24.5, Monocytes (%) (Auto) 7.4, Eosinophils (%) (Auto) 5.2H, Basophils (%) (Auto) 0.6, Sodium Level 146H, Potassium Level 4.2, Chloride Level 107, Carbon Dioxide Level 29, Anion Gap 11, Blood Urea Nitrogen 36H, Creatinine 1.5H, Estimat Glomerular Filtration Rate 46.4, Glucose Level 241H, Calcium Level 9.3 Height (Feet): 5 Height (Inches): 7.00 Weight (Pounds): 225 General Appearance: no apparent distress Cardiovascular: other - Variable Respiratory/Chest: decreased breath sounds Abdomen: soft Objective No change Dawson Doty MD Jul 18, 2019 11:20
--- NOTE | 2019-07-18 11:30 | Cardiac Electrophysiology PN ---
Assessment/Plan Assessment/Plan 1. Transient atrial flutter in the setting of acute GI bleed. Converted to sinus rhythm. On Metoprolol 25 mg b.i.d. 2. Hypertension. On metoprolol 25 b.i.d. 3. Acute GI bleed. Hemoglobin was down to 6.8, currently is 8.6. S/P EGD by Dr Finnegan with no acute findings. Had Gastritis and bulb DU with no bleeding 4. Renal failure. Creatinine was 1.7, currently is 1.5. Ruled out for MA. Echo EF 60% 5. Hyperlipidemia, on Lipitor. 6. BPH on Flomax. 7. Psychiatric disorder. DW RN Subjective Subjective No CP or SOB on SDU.In SR. HR stable Objective Last 24 Hour Vital Signs Date Time Temp Pulse Resp B/P (MAP) Pulse Ox O2 Delivery O2 Flow Rate FiO2 07/18/19 09:07 84 127/71 07/18/19 04:00 Nasal Cannula 2.0 07/18/19 04:00 98.7 62 24 127/70 (89) 98 07/18/19 02:59 54 07/18/19 00:00 Nasal Cannula 2.0 07/18/19 00:00 98.4 66 24 117/61 (79) 99 07/18/19 00:00 65 07/17/19 20:53 64 129/62 07/17/19 20:00 Nasal Cannula 2.0 07/17/19 20:00 98.4 64 20 129/62 (84) 98 07/17/19 19:20 73 07/17/19 19:00 96 Nasal Cannula 2.0 28 07/17/19 16:00 Nasal Cannula 2.0 07/17/19 16:00 98.9 81 18 144/72 (96) 97 07/17/19 16:00 68 07/17/19 16:00 68 07/17/19 12:00 61 07/17/19 12:00 98.2 72 18 134/73 (93) 98 07/17/19 12:00 Nasal Cannula 2.0 Intake and Output 07/17/19 07/18/19 19:00 07:00 Intake Total 1200 ml Balance 1200 ml Intake Oral 1200 ml # Voids 7 Laboratory Tests Test 07/18/19 03:25 White Blood Count 7.3 K/UL (4.8-10.8) Red Blood Count 2.93 M/UL (4.70-6.10) L Hemoglobin 8.9 G/DL (14.2-18.0) L Hematocrit 25.7 % (42.0-52.0) L Mean Corpuscular Volume 88 FL (80-99) Mean Corpuscular Hemoglobin 30.5 PG (27.0-31.0) Mean Corpuscular Hemoglobin Concent 34.8 G/DL (32.0-36.0) Red Cell Distribution Width 13.2 % (11.6-14.8) Platelet Count 274 K/UL (150-450) Mean Platelet Volume 5.4 FL (6.5-10.1) L Neutrophils (%) (Auto) 62.4 % (45.0-75.0) Lymphocytes (%) (Auto) 24.5 % (20.0-45.0) Monocytes (%) (Auto) 7.4 % (1.0-10.0) Eosinophils (%) (Auto) 5.2 % (0.0-3.0) H Basophils (%) (Auto) 0.6 % (0.0-2.0) Sodium Level 146 MMOL/L (136-145) H Potassium Level 4.2 MMOL/L (3.5-5.1) Chloride Level 107 MMOL/L (98-107) Carbon Dioxide Level 29 MMOL/L (21-32) Anion Gap 11 mmol/L (5-15) Blood Urea Nitrogen 36 mg/dL (7-18) H Creatinine 1.5 MG/DL (0.55-1.30) H Estimat Glomerular Filtration Rate 46.4 mL/min (>60) Glucose Level 241 MG/DL (74-106) H Calcium Level 9.3 MG/DL (8.5-10.1) Phosphorus Level Pending Magnesium Level Pending Total Bilirubin Pending Direct Bilirubin Pending Aspartate Amino Transf (AST/SGOT) Pending Alanine Aminotransferase (ALT/SGPT) Pending Alkaline Phosphatase Pending Total Protein Pending Albumin Pending Objective HEAD AND NECK: No JVD. LUNGS: Have decreased breath sounds. CARDIOVASCULAR: Regular S1 and S2 with no gallop or murmur. ABDOMEN: Obese. EXTREMITIES: 1+ pitting edema. Bernardo Stein MD Jul 18, 2019 11:30
[2019-07-18 11:33] LABS: ALANINE AMINOTRANSFERASE 29 U/L (12-78); ALBUMIN 2.8 G/DL (3.4-5.0); ALKALINE PHOSPHATASE 97 U/L (46-116); ASPARTATE AMINO TRANSFERASE 22 U/L (15-37); BILIRUBIN,DIRECT < 0.1 MG/DL (0.0-0.3); BILIRUBIN,TOTAL 0.2 MG/DL (0.2-1.0); PHOSPHORUS 4.7 MG/DL (2.5-4.9)
[2019-07-18 12:00] VITALS: BP 125/50
--- NOTE | 2019-07-18 12:17 | Surgery Progress Note ---
Surgery Progress Note Subjective Symptoms: improved, tolerating diet, voiding well, passing flatus, BM Objective Last 24 Hour Vital Signs Date Time Temp Pulse Resp B/P (MAP) Pulse Ox O2 Delivery O2 Flow Rate FiO2 07/18/19 09:07 84 127/71 07/18/19 04:00 Nasal Cannula 2.0 07/18/19 04:00 98.7 62 24 127/70 (89) 98 07/18/19 02:59 54 07/18/19 00:00 Nasal Cannula 2.0 07/18/19 00:00 98.4 66 24 117/61 (79) 99 07/18/19 00:00 65 07/17/19 20:53 64 129/62 07/17/19 20:00 Nasal Cannula 2.0 07/17/19 20:00 98.4 64 20 129/62 (84) 98 07/17/19 19:20 73 07/17/19 19:00 96 Nasal Cannula 2.0 28 07/17/19 16:00 Nasal Cannula 2.0 07/17/19 16:00 98.9 81 18 144/72 (96) 97 07/17/19 16:00 68 07/17/19 16:00 68 I&O Intake and Output 07/17/19 07/18/19 19:00 07:00 Intake Total 1200 ml Balance 1200 ml Intake Oral 1200 ml # Voids 7 Dressing: other Wound: other Drains: other Cardiovascular: RSR Respiratory: decreased breath sounds Abdomen: soft, non-tender, present bowel sounds Extremities: no tenderness, no cyanosis Laboratory Tests Test 07/18/19 03:25 White Blood Count 7.3 K/UL (4.8-10.8) Red Blood Count 2.93 M/UL (4.70-6.10) L Hemoglobin 8.9 G/DL (14.2-18.0) L Hematocrit 25.7 % (42.0-52.0) L Mean Corpuscular Volume 88 FL (80-99) Mean Corpuscular Hemoglobin 30.5 PG (27.0-31.0) Mean Corpuscular Hemoglobin Concent 34.8 G/DL (32.0-36.0) Red Cell Distribution Width 13.2 % (11.6-14.8) Platelet Count 274 K/UL (150-450) Mean Platelet Volume 5.4 FL (6.5-10.1) L Neutrophils (%) (Auto) 62.4 % (45.0-75.0) Lymphocytes (%) (Auto) 24.5 % (20.0-45.0) Monocytes (%) (Auto) 7.4 % (1.0-10.0) Eosinophils (%) (Auto) 5.2 % (0.0-3.0) H Basophils (%) (Auto) 0.6 % (0.0-2.0) Sodium Level 146 MMOL/L (136-145) H Potassium Level 4.2 MMOL/L (3.5-5.1) Chloride Level 107 MMOL/L (98-107) Carbon Dioxide Level 29 MMOL/L (21-32) Anion Gap 11 mmol/L (5-15) Blood Urea Nitrogen 36 mg/dL (7-18) H Creatinine 1.5 MG/DL (0.55-1.30) H Estimat Glomerular Filtration Rate 46.4 mL/min (>60) Glucose Level 241 MG/DL (74-106) H Calcium Level 9.3 MG/DL (8.5-10.1) Phosphorus Level 4.7 MG/DL (2.5-4.9) Magnesium Level 1.7 MG/DL (1.8-2.4) L Total Bilirubin 0.2 MG/DL (0.2-1.0) Direct Bilirubin < 0.1 MG/DL (0.0-0.3) Aspartate Amino Transf (AST/SGOT) 22 U/L (15-37) Alanine Aminotransferase (ALT/SGPT) 29 U/L (12-78) Alkaline Phosphatase 97 U/L (46-116) Total Protein 7.2 G/DL (6.4-8.2) Albumin 2.8 G/DL (3.4-5.0) L Plan Problems: (1) Decubitus skin ulcer Assessment & Plan: Patient presented on admission with full thickness stage 4 pressure injury L buttocks (L)1.1cm x (W)1.5cm x (D)0.3cm. Base of wound is sapphire and moist. Borders are macerated .Surrounding non-blanching erythema without induration. Pt complained of pain when minimally palpated. Base of scrotum is erythematous with small area of shearing noted. Medial boggy with non-blanching erythema. Pt yells when minimally palpated. (L) 5.5cm x (W)5cm. Historical scar L heel. L heel is boggy but blanchable. Tx.Plan: Cleanse L buttocks with Saline. Apply TheraHoney. Apply Moisture Barrier Paste periwound. Cover with Optifoam Drsg Daily and prn. Apply Moisture Barrier Paste to scrotum with each Incontinence care. Apply Cavilon Skin Barrier to both heels. Cover each heel with Optifoam drsg. Change every 7 days and prn. Reposition at least every 2hours or as tolerated. Off-load heels with pillow. APM/IRIS Mattress overlay. (2) Gastrointestinal hemorrhage Assessment & Plan: Patient with coffee-ground emesis possible GI bleed severe anemia requiring transfusion Currently no active bleeding noted Agree with GI recommend endoscopy/colonoscopy for evaluation PPI IV fluids Trend labs We will follow with recommendations as work-up completed thank you for let me participate in patient's care repeat egd at bedside in ICU with possible etiology identified and hemostasis will monitor trend h/h downgraded Improving Discharge planning Diet as tolerated Continue PPI There is a small left inguinal hernia which contains only fat. There are colonic diverticula. There is considerable retained stool within the proximal sigmoid colon. There is no evidence of acute diverticulitis. The appendix is normal. No small bowel distention. No free or loculated intraperitoneal gas or fluid is evident. The stomach is mildly distended with gas. No downstream obstructive lesion is demonstrated, however. The duodenum and distal esophagus are unremarkable. Lack of IV contrast limits assessment of solid organs. The liver is grossly unremarkable. The gallbladder contains gallstones. No biliary ductal dilatation. The pancreas is unremarkable. The spleen demonstrates an accessory splenule, is otherwise unremarkable. The adrenals are unremarkable. The kidneys demonstrate bilateral nonspecific perinephric fat stranding. No definite focal abnormality. No hydronephrosis or hydroureter or renal or ureteral calculi demonstrated. The kidneys are somewhat atrophic. The bladder is mildly distended. No pelvic mass demonstrated. There are some prominent iliac chain nodes bilaterally, largest on the left measuring up to 19 mm long axis dimension. There are also prominent retroperitoneal nodes, largest measuring 2.4 cm long axis dimension, 1.1 cm short axis dimension. No pelvic mass. 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 There is considerable heterotopic ossification of the left hip region. Some surgical scarring is seen in the left hip region soft tissues. There are degenerative changes of the lumbar spine. The included lung bases demonstrate posterior dependent atelectatic changes. Impression: Limited assessment of the GI tract, due to lack of enteric contrast demonstration Mild gastric distention without evidence of downstream obstructive lesion. No acute process otherwise. Cholelithiasis Mildly distended bladder Colonic diverticulosis. No evidence of diverticulitis Nonspecific bilateral perinephric fat stranding Borderline bilateral iliac and retroperitoneal lymphadenopathy, of uncertain significance. Could be baseline for this patient versus reactive, less likely indicative of metastatic neoplasm or lymphoproliferative disorder (3) Morbid obesity Good Love Jul 18, 2019 12:17
[2019-07-18] MEDS ORDERED: Varibar Honey 250ml MC PRN (13:00)
[2019-07-18] MEDS ORDERED: Varibar Pudding 230ml MC PRN (13:00)
[2019-07-18] MEDS ORDERED: Varibar Nectar 240ml MC PRN (13:00)
--- NOTE | 2019-07-18 14:00 | Consultation ---
DATE OF CONSULTATION: 07/18/2019 ENDOCRINOLOGY CONSULTATION CONSULTING PHYSICIAN: Juve Cordova M.D. REFERRING PHYSICIAN: Joe Salinas D.O. REASON FOR CONSULTATION: Diabetes management. HISTORY OF PRESENT ILLNESS: The patient is a 68-year-old male, who is a resident of [facility], insulin-dependent diabetes, brought to the hospital with vomiting x2 days, getting worse, and had coffee-ground emesis, GI bleeding with drop in hemoglobin, and was admitted on July 09, 2019 for evaluation by software test automation engineer and workup has been done. I was called to manage diabetes since the glucose is quite elevated. PAST MEDICAL HISTORY: 1. Diabetes. 2. CVA. 3. Obesity. 4. Encephalopathy. REVIEW OF SYSTEMS: Difficult to obtain. PAST SURGICAL HISTORY: Left hip surgery. MEDICATIONS: Reviewed and reconciled. ALLERGIES: Penicillin. SOCIAL HISTORY: No smoking, alcohol, or drug use. He is a resident of the [facility] facility. LABORATORY VALUES: WBC 7.3, hemoglobin 8.9, hematocrit 25.7, platelets of 274. Sodium 146, potassium 4.2, chloride 107, bicarb 29, BUN 36, creatinine 1.5, glucose of 241. Hemoglobin A1c is 12. PHYSICAL EXAMINATION: GENERAL: The patient is awake. VITAL SIGNS: Blood pressure is 127/70, pulse 62, temperature 98.7, respiratory rate 16. HEENT: Pupils are reactive to light. Sclerae anicteric. NECK: No JVD. HEART: Regular. LUNGS: Clear. ABDOMEN: Positive bowel sounds. EXTREMITIES: Positive for edema. DIAGNOSES: 1. Diabetes, out of control. 2. GI bleed. 3. Anemia. PLAN: 1. Start Levemir 30 units b.i.d. 2. Start NovoLog 20 units before each meal. 3. NovoLog sliding scale before meals and at bedtime. 4. Further adjustment according to blood glucose values. 5. I will follow the patient closely during hospital stay. Thank you, Dr. Salinas, for the courtesy of this consultation. Juve Cordova M.D. DR: SANDY/ROB JOB#: [id number] CC: KAREEM
[2019-07-18 16:00] VITALS: BP 144/72
[2019-07-18 21:00] VITALS: BP 115/69
[2019-07-18] MEDS ORDERED: Miralax 17gm pkt ORAL SCH (21:00)
[2019-07-18] MEDS ORDERED: Tamsulosin 0.4mg cap ORAL SCH (21:00)
[2019-07-18] MEDS ORDERED: HydrALAZINE 25mg tab ORAL PRN (23:30)
[2019-07-18] MEDS ORDERED: Sennosides 8.6mg tab ORAL PRN (23:30)
[2019-07-19 00:07] VITALS: BP 109/52
[2019-07-19] MEDS ORDERED: Acetaminophen 500mg (ES) tab ORAL PRN (00:15)
[2019-07-19 04:00] VITALS: BP 130/57
[2019-07-19] MEDS: NovoLOG Insulin Flexpen SUBQ SCH ×4 (06:10→11:39)
--- NOTE | 2019-07-19 06:32 | General Progress Note ---
Assessment/Plan Problem List: (1) Diabetes mellitus ICD Codes: E11.9 - Type 2 diabetes mellitus without complications SNOMED: 32361970 (2) Gastrointestinal hemorrhage ICD Codes: K92.2 - Gastrointestinal hemorrhage, unspecified SNOMED: 18540486 Qualifiers: Qualified Codes: K92.2 - Gastrointestinal hemorrhage, unspecified (3) Dementia ICD Codes: F03.90 - Unspecified dementia without behavioral disturbance SNOMED: 81269360 Status: stable, progressing Assessment/Plan: increase Levemir to 40 units bid continue Novolog 20 units ac tid + SSI Subjective Allergies: Coded Allergies: ASPIRIN (Verified Allergy, Unknown, 11/22/17) PENICILLINS (Verified Allergy, Unknown, 11/22/17) SULFAMETHOXAZOLE (Verified Allergy, Unknown, 11/22/17) TRIMETHOPRIM (Verified Allergy, Unknown, 11/22/17) Subjective events noted glucose values improved but still elevated Item Value Date Time Bedside Blood Glucose 287 mg/dl H 07/19/19 0616 Bedside Blood Glucose 195 mg/dl H 07/18/19 2250 Bedside Blood Glucose 322 mg/dl H 07/18/19 1658 Bedside Blood Glucose 328 mg/dl H 07/18/19 1252 Objective Last 24 Hour Vital Signs Date Time Temp Pulse Resp B/P (MAP) Pulse Ox O2 Delivery O2 Flow Rate FiO2 07/19/19 05:01 Nasal Cannula 2.0 07/19/19 04:00 58 07/19/19 04:00 97.5 62 19 130/57 (81) 98 07/19/19 04:00 Nasal Cannula 2.0 07/19/19 00:07 98.2 65 20 109/52 (71) 98 07/19/19 00:00 Nasal Cannula 2.0 07/19/19 00:00 78 07/18/19 22:24 76 115/69 07/18/19 21:01 Nasal Cannula 2.0 07/18/19 21:00 98.2 76 21 115/69 (84) 100 07/18/19 20:30 85 07/18/19 19:16 98 Nasal Cannula 2.0 28 07/18/19 16:00 98.8 70 18 144/72 (96) 97 07/18/19 16:00 Nasal Cannula 2.0 07/18/19 15:08 67 07/18/19 12:00 Nasal Cannula 2.0 07/18/19 12:00 98.6 60 20 125/50 (75) 97 07/18/19 11:53 61 07/18/19 09:07 84 127/71 07/18/19 08:00 Nasal Cannula 2.0 07/18/19 08:00 98.8 64 24 123/59 (80) 97 Intake and Output 07/18/19 07/19/19 19:00 07:00 Intake Total 780 ml Output Total 560 ml Balance 220 ml Intake Oral 780 ml Output Urine Total 560 ml # Voids 2 Height (Feet): 5 Height (Inches): 7.00 Weight (Pounds): 230 General Appearance: no apparent distress Neck: normal alignment Cardiovascular: normal rate Respiratory/Chest: decreased breath sounds Edema: no edema noted Arm (L), no edema noted Arm (R), no edema noted Leg (L), no edema noted Leg (R), no edema noted Pedal (L), no edema noted Pedal (R), no edema noted Generalized Objective Current Medications Medications (Trade) Dose Ordered Sig/Jayden Route PRN Reason Start Time Stop Time Status Last Admin Dose Admin Acetaminophen (Tylenol) 650 mg Q4H PRN ORAL Mild Pain/Temp > 100.5 07/18/19 22:15 08/17/19 22:14 Artificial Tears (Akwa-Tears) 2 drop EVERY 6 HOURS BOTH EYES 07/19/19 00:00 08/16/19 00:00 07/19/19 06:11 Atorvastatin Calcium (Lipitor) 10 mg BEDTIME ORAL 07/18/19 21:00 10/16/19 20:59 07/18/19 22:24 Barium Sulfate (Varibar Honey) 250 ml NOW PRN MC RAD 07/19/19 13:00 07/21/19 12:49 Barium Sulfate (Varibar Leach) 240 ml NOW PRN MC RAD 07/19/19 13:00 07/21/19 12:49 Barium Sulfate (Varibar Pudding) 230 ml NOW PRN MC RAD 07/19/19 13:00 07/21/19 12:49 Bisacodyl (Dulcolax) 10 mg DAILY ORAL 07/19/19 09:00 08/09/19 08:59 Dextrose (Dextrose 50%) 25 ml Q30M PRN IV Hypoglycemia 07/18/19 22:00 10/15/19 11:29 Dextrose (Dextrose 50%) 50 ml Q30M PRN IV Hypoglycemia 07/18/19 22:00 10/15/19 11:29 Escitalopram Oxalate (Lexapro) 10 mg DAILY ORAL 07/19/19 09:00 08/09/19 08:59 Gabapentin (Neurontin) 400 mg THREE TIMES A DAY ORAL 07/19/19 09:00 08/09/19 08:59 Hydralazine HCl (Apresoline) 25 mg Q4H PRN ORAL bp over 160 syst 07/18/19 23:30 08/08/19 11:29 Insulin Aspart (NovoLOG) BEFORE MEALS AND HS SUBQ 07/18/19 21:00 10/16/19 20:59 07/19/19 06:10 Insulin Aspart (NovoLOG) 20 units NOVOTIAC SUBQ 07/19/19 06:30 10/15/19 11:49 07/19/19 06:11 Insulin Detemir (Levemir) 30 units BID SUBQ 07/19/19 09:00 10/15/19 11:29 Metoprolol Tartrate (Lopressor) 25 mg EVERY 12 HOURS ORAL 07/18/19 21:00 10/16/19 20:59 07/18/19 22:24 Ondansetron HCl (Zofran) 4 mg Q6H PRN IVP Nausea & Vomiting 07/18/19 23:30 08/12/19 17:24 Ondansetron HCl (Zofran) 4 mg Q6H PRN ORAL Nausea & Vomiting 07/18/19 23:30 08/08/19 11:29 Pantoprazole (Protonix) 40 mg BID ORAL 07/19/19 09:00 08/17/19 17:59 Polyethylene Glycol (Miralax) 17 gm BEDTIME ORAL 07/18/19 21:00 08/17/19 20:59 07/18/19 22:25 Risperidone (RisperDAL) 2 mg DAILY ORAL 07/19/19 09:00 08/24/19 08:59 Sennosides (Senokot) 8.6 mg EVERY 12 HOURS ORAL 07/18/19 21:00 08/17/19 20:59 07/18/19 22:24 Sennosides (Senokot) 8.6 mg Q6H PRN ORAL Constipation 07/18/19 23:30 08/08/19 11:29 Tamsulosin HCl (Flomax) 0.4 mg QHS ORAL 07/18/19 21:00 08/17/19 20:59 07/18/19 22:25 Temazepam (Restoril) 15 mg BEDTIME PRN ORAL Insomnia 07/18/19 21:00 07/25/19 20:59 Juve Cordova MD Jul 19, 2019 06:32
[2019-07-19 06:55] LABS: EOSINOPHILS % (AUTO) 4.5 % (0.0-3.0); HEMATOCRIT 26.6 % (42.0-52.0); LYMPHOCYTES % (AUTO) 22.7 % (20.0-45.0); MEAN CORPUSCULAR VOLUME 89 FL (80-99); MONOCYTES % (AUTO) 5.9 % (1.0-10.0); NEUTROPHILS % (AUTO) 65.9 % (45.0-75.0); PLATELET COUNT 274 K/UL (150-450); RED CELL DISTRIBUTION WIDTH 13.5 % (11.6-14.8); WHITE BLOOD COUNT 8.2 K/UL (4.8-10.8)
--- NOTE | 2019-07-19 07:14 | General Progress Note ---
Assessment/Plan Status: stable, progressing Assessment/Plan: gib gastric ulcer duodenal ulcer stable labs today no obvious bleeding per nurses ppi fu cbc>>>stable on diet dc planning per primary team Subjective ROS Limited/Unobtainable: Yes Allergies: Coded Allergies: ASPIRIN (Verified Allergy, Unknown, 11/22/17) PENICILLINS (Verified Allergy, Unknown, 11/22/17) SULFAMETHOXAZOLE (Verified Allergy, Unknown, 11/22/17) TRIMETHOPRIM (Verified Allergy, Unknown, 11/22/17) Objective Last 24 Hour Vital Signs Date Time Temp Pulse Resp B/P (MAP) Pulse Ox O2 Delivery O2 Flow Rate FiO2 07/19/19 05:01 Nasal Cannula 2.0 07/19/19 04:00 58 07/19/19 04:00 97.5 62 19 130/57 (81) 98 07/19/19 04:00 Nasal Cannula 2.0 07/19/19 00:07 98.2 65 20 109/52 (71) 98 07/19/19 00:00 Nasal Cannula 2.0 07/19/19 00:00 78 07/18/19 22:24 76 115/69 07/18/19 21:01 Nasal Cannula 2.0 07/18/19 21:00 98.2 76 21 115/69 (84) 100 07/18/19 20:30 85 07/18/19 19:16 98 Nasal Cannula 2.0 28 07/18/19 16:00 98.8 70 18 144/72 (96) 97 07/18/19 16:00 Nasal Cannula 2.0 07/18/19 15:08 67 07/18/19 12:00 Nasal Cannula 2.0 07/18/19 12:00 98.6 60 20 125/50 (75) 97 07/18/19 11:53 61 07/18/19 09:07 84 127/71 07/18/19 08:00 Nasal Cannula 2.0 07/18/19 08:00 98.8 64 24 123/59 (80) 97 Intake and Output 07/18/19 07/19/19 19:00 07:00 Intake Total 780 ml Output Total 560 ml Balance 220 ml Intake Oral 780 ml Output Urine Total 560 ml # Voids 2 Laboratory Tests 07/19/19 06:07: White Blood Count 8.2, Red Blood Count 3.00L, Hemoglobin 9.0L, Hematocrit 26.6L , Mean Corpuscular Volume 89, Mean Corpuscular Hemoglobin 30.1, Mean Corpuscular Hemoglobin Concent 34.0, Red Cell Distribution Width 13.5, Platelet Count 274, Mean Platelet Volume 5.2L, Neutrophils (%) (Auto) 65.9, Lymphocytes ( %) (Auto) 22.7, Monocytes (%) (Auto) 5.9, Eosinophils (%) (Auto) 4.5H, Basophils (%) (Auto) 1.0, Sodium Level [Pending], Potassium Level [Pending], Chloride Level [Pending], Carbon Dioxide Level [Pending], Blood Urea Nitrogen [ Pending], Creatinine [Pending], Estimat Glomerular Filtration Rate [Pending], Glucose Level [Pending], Calcium Level [Pending] Height (Feet): 5 Height (Inches): 7.00 Weight (Pounds): 230 General Appearance: alert EENT: normal ENT inspection Neck: supple Cardiovascular: normal rate Respiratory/Chest: decreased breath sounds Abdomen: normal bowel sounds, non tender, soft Extremities: non-tender Shin Browne MD Jul 19, 2019 07:14
[2019-07-19 07:34] LABS: ANION GAP 9 mmol/L (5-15); BLOOD UREA NITROGEN 31 mg/dL (7-18); CALCIUM 9.3 MG/DL (8.5-10.1); CARBON DIOXIDE 25 MMOL/L (21-32); CHLORIDE 104 MMOL/L (98-107); CREATININE 1.6 MG/DL (0.55-1.30); POTASSIUM 4.2 MMOL/L (3.5-5.1); SODIUM 138 MMOL/L (136-145)
--- NOTE | 2019-07-19 07:38 | Hematology/Onc Progress Note ---
Assessment/Plan Assessment/Plan EGD Operative Findings/Diagnosis: Bulb DU, shallow, white based, 1/3 circumferential, not active bleeding Assessment and Recs: # Anemia due to gi bleed, no evidence of hemolysis, on presentation hgb 6.3, egd Bulb DU, shallow, white based, 1/3 circumferential, not active bleeding --> transfused with several units of prbc --> egd completed showing non active bleeding --> anemia panel also reviewed as well --> peripheral smear is noted --> meds reviewed --> hgb trend 8.8-->9 # Hyperocag disorder with transient atrial fib --> bb, mtp as per cards --> hold off on anticoag # Decubitus skin ulcer --> matress, therahoney, moisture barrier --> turn as needed --> per wound care, surg # Hypertension. On metoprolol 25 b.i.d. --> on mtp, as per cards --> sbp goal <140 # [place]oto likely due to dehydration, volume down --> per renal, ivf # Hyperlipidemia, on Lipitor. # BPH on Flomax. # Psychiatric disorder. # Dvt ppx scds Appreciate consultation and ludmila RN Subjective HEENT: Denies: no symptoms, eye pain, blurred vision, tearing, double vision, ear pain, ear discharge, nose pain, nose congestion, throat pain, throat swelling, mouth pain, mouth swelling, other Cardiovascular: Denies: no symptoms, chest pain, edema, irregular heart rate, lightheadedness, palpitations, syncope, other Respiratory: Denies: no symptoms, cough, shortness of breath, SOB with excertion, SOB at rest, sputum, wheezing, other Gastrointestinal/Abdominal: Denies: no symptoms, abdomen distended, abdominal pain, black stools, tarry stools, blood in stool, constipated, diarrhea, difficulty swallowing, nausea, poor appetite, poor fluid intake, rectal bleeding , vomiting, other Genitourinary: Denies: no symptoms, burning, discharge, frequency, flank pain, hematuria, incontinence, pain, urgency, other Neurologic/Psychiatric: Denies: no symptoms, anxiety, depressed, emotional problems, headache, numbness, paresthesia, pre-existing deficit, seizure, tingling, tremors, weakness, other Endocrine: Denies: no symptoms, excessive sweating, flushing, intolerance to cold, intolerance to heat, increased hunger, increased thirst, increased urine, unexplained weight gain, unexplained weight loss, other Hematologic/Lymphatic: Denies: no symptoms, anemia, easy bleeding, easy bruising, adenopathy, other Allergies: Coded Allergies: ASPIRIN (Verified Allergy, Unknown, 11/22/17) PENICILLINS (Verified Allergy, Unknown, 11/22/17) SULFAMETHOXAZOLE (Verified Allergy, Unknown, 11/22/17) TRIMETHOPRIM (Verified Allergy, Unknown, 11/22/17) Subjective 07/17 labs noted, remains on 2lnc, no bleeding, no events, meds reviewed, hgb 8.9 07/18 labs reviewed, hgb 9, no bleeding, dw Gi, no major events, tolerating diet Objective Objective Current Medications Medications (Trade) Dose Ordered Sig/Jayden Route PRN Reason Start Time Stop Time Status Last Admin Dose Admin Acetaminophen (Tylenol) 650 mg Q4H PRN ORAL Mild Pain/Temp > 100.5 07/18/19 22:15 08/17/19 22:14 Artificial Tears (Akwa-Tears) 2 drop EVERY 6 HOURS BOTH EYES 07/19/19 00:00 08/16/19 00:00 07/19/19 06:11 Atorvastatin Calcium (Lipitor) 10 mg BEDTIME ORAL 07/18/19 21:00 10/16/19 20:59 07/18/19 22:24 Barium Sulfate (Varibar Honey) 250 ml NOW PRN MC RAD 07/19/19 13:00 07/21/19 12:49 Barium Sulfate (Varibar [place]) 240 ml NOW PRN MC RAD 07/19/19 13:00 07/21/19 12:49 Barium Sulfate (Varibar Pudding) 230 ml NOW PRN MC RAD 07/19/19 13:00 07/21/19 12:49 Bisacodyl (Dulcolax) 10 mg DAILY ORAL 07/19/19 09:00 08/09/19 08:59 Dextrose (Dextrose 50%) 25 ml Q30M PRN IV Hypoglycemia 07/18/19 22:00 10/15/19 11:29 Dextrose (Dextrose 50%) 50 ml Q30M PRN IV Hypoglycemia 07/18/19 22:00 10/15/19 11:29 Escitalopram Oxalate (Lexapro) 10 mg DAILY ORAL 07/19/19 09:00 08/09/19 08:59 Gabapentin (Neurontin) 400 mg THREE TIMES A DAY ORAL 07/19/19 09:00 08/09/19 08:59 Hydralazine HCl (Apresoline) 25 mg Q4H PRN ORAL bp over 160 syst 07/18/19 23:30 08/08/19 11:29 Insulin Aspart (NovoLOG) BEFORE MEALS AND HS SUBQ 07/18/19 21:00 10/16/19 20:59 07/19/19 06:10 Insulin Aspart (NovoLOG) 20 units NOVOTIAC SUBQ 07/19/19 06:30 10/15/19 11:49 07/19/19 06:11 Insulin Detemir (Levemir) 40 units BID SUBQ 07/19/19 09:00 10/15/19 11:29 Metoprolol Tartrate (Lopressor) 25 mg EVERY 12 HOURS ORAL 07/18/19 21:00 10/16/19 20:59 07/18/19 22:24 Ondansetron HCl (Zofran) 4 mg Q6H PRN IVP Nausea & Vomiting 07/18/19 23:30 08/12/19 17:24 Ondansetron HCl (Zofran) 4 mg Q6H PRN ORAL Nausea & Vomiting 07/18/19 23:30 08/08/19 11:29 Pantoprazole (Protonix) 40 mg BID ORAL 07/19/19 09:00 08/17/19 17:59 Polyethylene Glycol (Miralax) 17 gm BEDTIME ORAL 07/18/19 21:00 08/17/19 20:59 07/18/19 22:25 Risperidone (RisperDAL) 2 mg DAILY ORAL 07/19/19 09:00 08/24/19 08:59 Sennosides (Senokot) 8.6 mg EVERY 12 HOURS ORAL 07/18/19 21:00 08/17/19 20:59 07/18/19 22:24 Sennosides (Senokot) 8.6 mg Q6H PRN ORAL Constipation 07/18/19 23:30 08/08/19 11:29 Tamsulosin HCl (Flomax) 0.4 mg QHS ORAL 07/18/19 21:00 08/17/19 20:59 07/18/19 22:25 Temazepam (Restoril) 15 mg BEDTIME PRN ORAL Insomnia 07/18/19 21:00 07/25/19 20:59 Last 24 Hour Vital Signs Date Time Temp Pulse Resp B/P (MAP) Pulse Ox O2 Delivery O2 Flow Rate FiO2 07/19/19 05:01 Nasal Cannula 2.0 07/19/19 04:00 58 07/19/19 04:00 97.5 62 19 130/57 (81) 98 07/19/19 04:00 Nasal Cannula 2.0 07/19/19 00:07 98.2 65 20 109/52 (71) 98 07/19/19 00:00 Nasal Cannula 2.0 07/19/19 00:00 78 07/18/19 22:24 76 115/69 07/18/19 21:01 Nasal Cannula 2.0 07/18/19 21:00 98.2 76 21 115/69 (84) 100 07/18/19 20:30 85 07/18/19 19:16 98 Nasal Cannula 2.0 28 07/18/19 16:00 98.8 70 18 144/72 (96) 97 07/18/19 16:00 Nasal Cannula 2.0 07/18/19 15:08 67 07/18/19 12:00 Nasal Cannula 2.0 07/18/19 12:00 98.6 60 20 125/50 (75) 97 07/18/19 11:53 61 07/18/19 09:07 84 127/71 07/18/19 08:00 Nasal Cannula 2.0 07/18/19 08:00 98.8 64 24 123/59 (80) 97 07/18/19 04:00 Nasal Cannula 2.0 07/18/19 04:00 98.7 62 24 127/70 (89) 98 07/18/19 02:59 54 07/18/19 00:00 Nasal Cannula 2.0 07/18/19 00:00 98.4 66 24 117/61 (79) 99 07/18/19 00:00 65 07/17/19 20:53 64 129/62 07/17/19 20:00 Nasal Cannula 2.0 07/17/19 20:00 98.4 64 20 129/62 (84) 98 07/17/19 19:20 73 07/17/19 19:00 96 Nasal Cannula 2.0 28 07/17/19 16:00 Nasal Cannula 2.0 07/17/19 16:00 98.9 81 18 144/72 (96) 97 07/17/19 16:00 68 07/17/19 16:00 68 07/17/19 12:00 61 07/17/19 12:00 98.2 72 18 134/73 (93) 98 07/17/19 12:00 Nasal Cannula 2.0 07/17/19 08:35 53 121/54 07/17/19 08:00 52 07/17/19 08:00 Nasal Cannula 2.0 07/17/19 08:00 98.0 53 18 121/54 (76) 98 Intake and Output 07/18/19 07/19/19 19:00 07:00 Intake Total 780 ml Output Total 560 ml Balance 220 ml Intake Oral 780 ml Output Urine Total 560 ml # Voids 2 Labs Test 07/17/19 03:05 07/18/19 03:25 07/19/19 06:07 White Blood Count 7.1 K/UL (4.8-10.8) 7.3 K/UL (4.8-10.8) 8.2 K/UL (4.8-10.8) Red Blood Count 2.71 M/UL (4.70-6.10) 2.93 M/UL (4.70-6.10) 3.00 M/UL (4.70-6.10) Hemoglobin 8.3 G/DL (14.2-18.0) 8.9 G/DL (14.2-18.0) 9.0 G/DL (14.2-18.0) Hematocrit 24.0 % (42.0-52.0) 25.7 % (42.0-52.0) 26.6 % (42.0-52.0) Mean Corpuscular Volume 88 FL (80-99) 88 FL (80-99) 89 FL (80-99) Mean Corpuscular Hemoglobin 30.7 PG (27.0-31.0) 30.5 PG (27.0-31.0) 30.1 PG (27.0-31.0) Mean Corpuscular Hemoglobin Concent 34.6 G/DL (32.0-36.0) 34.8 G/DL (32.0-36.0) 34.0 G/DL (32.0-36.0) Red Cell Distribution Width 13.2 % (11.6-14.8) 13.2 % (11.6-14.8) 13.5 % (11.6-14.8) Platelet Count 253 K/UL (150-450) 274 K/UL (150-450) 274 K/UL (150-450) Mean Platelet Volume 5.3 FL (6.5-10.1) 5.4 FL (6.5-10.1) 5.2 FL (6.5-10.1) Neutrophils (%) (Auto) 64.5 % (45.0-75.0) 62.4 % (45.0-75.0) 65.9 % (45.0-75.0) Lymphocytes (%) (Auto) 22.8 % (20.0-45.0) 24.5 % (20.0-45.0) 22.7 % (20.0-45.0) Monocytes (%) (Auto) 7.9 % (1.0-10.0) 7.4 % (1.0-10.0) 5.9 % (1.0-10.0) Eosinophils (%) (Auto) 4.1 % (0.0-3.0) 5.2 % (0.0-3.0) 4.5 % (0.0-3.0) Basophils (%) (Auto) 0.7 % (0.0-2.0) 0.6 % (0.0-2.0) 1.0 % (0.0-2.0) Sodium Level 144 MMOL/L (136-145) 146 MMOL/L (136-145) 138 MMOL/L (136-145) Potassium Level 4.5 MMOL/L (3.5-5.1) 4.2 MMOL/L (3.5-5.1) 4.2 MMOL/L (3.5-5.1) Chloride Level 108 MMOL/L (98-107) 107 MMOL/L (98-107) 104 MMOL/L (98-107) Carbon Dioxide Level 27 MMOL/L (21-32) 29 MMOL/L (21-32) 25 MMOL/L (21-32) Anion Gap 9 mmol/L (5-15) 11 mmol/L (5-15) 9 mmol/L (5-15) Blood Urea Nitrogen 32 mg/dL (7-18) 36 mg/dL (7-18) 31 mg/dL (7-18) Creatinine 1.6 MG/DL (0.55-1.30) 1.5 MG/DL (0.55-1.30) 1.6 MG/DL (0.55-1.30) Estimat Glomerular Filtration Rate 43.1 mL/min (>60) 46.4 mL/min (>60) 43.1 mL/min (>60) Glucose Level 336 MG/DL (74-106) 241 MG/DL (74-106) 323 MG/DL (74-106) Calcium Level 9.1 MG/DL (8.5-10.1) 9.3 MG/DL (8.5-10.1) 9.3 MG/DL (8.5-10.1) Phosphorus Level 4.7 MG/DL (2.5-4.9) Magnesium Level 1.7 MG/DL (1.8-2.4) Total Bilirubin 0.2 MG/DL (0.2-1.0) Direct Bilirubin < 0.1 MG/DL (0.0-0.3) Aspartate Amino Transf (AST/SGOT) 22 U/L (15-37) Alanine Aminotransferase (ALT/SGPT) 29 U/L (12-78) Alkaline Phosphatase 97 U/L (46-116) Total Protein 7.2 G/DL (6.4-8.2) Albumin 2.8 G/DL (3.4-5.0) Height (Feet): 5 Height (Inches): 7.00 Weight (Pounds): 230 Objective Physical Exam General: well appearing, no apparent distress, alert HEENT: PERRL/EOMI, normal ENT inspection Neck: supple Resp: normal breath sounds, no respiratory distress Cv: normal rate Marlon: no ttp, nd Rectal: deferred Msk: normal inspection, back normal Neurologic: alert, oriented x3 Psychiatric: normal inspection, judgement/insight normal, memory normal Yaniv Storey MD Jul 19, 2019 07:38
[2019-07-19 08:00] VITALS: BP 112/57
[2019-07-19] MEDS: Sennosides 8.6mg tab ORAL SCH (08:51)
--- NOTE | 2019-07-19 08:52 | General Progress Note ---
Assessment/Plan Problem List: (1) Diabetes mellitus ICD Codes: E11.9 - Type 2 diabetes mellitus without complications SNOMED: 51211240 (2) Morbid obesity ICD Codes: E66.01 - Morbid (severe) obesity due to excess calories SNOMED: 714851044 (3) Gastrointestinal hemorrhage ICD Codes: K92.2 - Gastrointestinal hemorrhage, unspecified SNOMED: 91145834 Qualifiers: Qualified Codes: K92.2 - Gastrointestinal hemorrhage, unspecified (4) Anemia ICD Codes: D64.9 - Anemia, unspecified SNOMED: 466587356 (5) Renal failure (ARF), acute on chronic ICD Codes: N17.9 - Acute kidney failure, unspecified; N18.9 - Chronic kidney disease, unspecified SNOMED: 989716731 (6) Hemoptysis ICD Codes: R04.2 - Hemoptysis SNOMED: 89307964 Status: stable, progressing Assessment/Plan: pt diet gi/neph f/u cbc bmp am dc if clear by gi cardio Subjective Allergies: Coded Allergies: ASPIRIN (Verified Allergy, Unknown, 11/22/17) PENICILLINS (Verified Allergy, Unknown, 11/22/17) SULFAMETHOXAZOLE (Verified Allergy, Unknown, 11/22/17) TRIMETHOPRIM (Verified Allergy, Unknown, 11/22/17) All Systems: reviewed and negative except above Subjective o2nc calm Objective Last 24 Hour Vital Signs Date Time Temp Pulse Resp B/P (MAP) Pulse Ox O2 Delivery O2 Flow Rate FiO2 07/19/19 05:01 Nasal Cannula 2.0 07/19/19 04:00 58 07/19/19 04:00 97.5 62 19 130/57 (81) 98 07/19/19 04:00 Nasal Cannula 2.0 07/19/19 00:07 98.2 65 20 109/52 (71) 98 07/19/19 00:00 Nasal Cannula 2.0 07/19/19 00:00 78 07/18/19 22:24 76 115/69 07/18/19 21:01 Nasal Cannula 2.0 07/18/19 21:00 98.2 76 21 115/69 (84) 100 07/18/19 20:30 85 07/18/19 19:16 98 Nasal Cannula 2.0 28 07/18/19 16:00 98.8 70 18 144/72 (96) 97 07/18/19 16:00 Nasal Cannula 2.0 07/18/19 15:08 67 07/18/19 12:00 Nasal Cannula 2.0 07/18/19 12:00 98.6 60 20 125/50 (75) 97 07/18/19 11:53 61 07/18/19 09:07 84 127/71 Intake and Output 07/18/19 07/19/19 19:00 07:00 Intake Total 780 ml Output Total 560 ml Balance 220 ml Intake Oral 780 ml Output Urine Total 560 ml # Voids 2 Laboratory Tests 07/19/19 06:07: White Blood Count 8.2, Red Blood Count 3.00L, Hemoglobin 9.0L, Hematocrit 26.6L , Mean Corpuscular Volume 89, Mean Corpuscular Hemoglobin 30.1, Mean Corpuscular Hemoglobin Concent 34.0, Red Cell Distribution Width 13.5, Platelet Count 274, Mean Platelet Volume 5.2L, Neutrophils (%) (Auto) 65.9, Lymphocytes ( %) (Auto) 22.7, Monocytes (%) (Auto) 5.9, Eosinophils (%) (Auto) 4.5H, Basophils (%) (Auto) 1.0, Sodium Level 138, Potassium Level 4.2, Chloride Level 104, Carbon Dioxide Level 25, Anion Gap 9, Blood Urea Nitrogen 31H, Creatinine 1.6H, Estimat Glomerular Filtration Rate 43.1, Glucose Level 323H, Calcium Level 9.3 Height (Feet): 5 Height (Inches): 7.00 Weight (Pounds): 230 General Appearance: lethargic EENT: normal ENT inspection Neck: normal alignment Cardiovascular: normal peripheral pulses, normal rate, regular rhythm Respiratory/Chest: chest wall non-tender, lungs clear, normal breath sounds Abdomen: normal bowel sounds, non tender, soft Extremities: normal inspection Edema: no edema noted Arm (L), no edema noted Arm (R), no edema noted Leg (L), no edema noted Leg (R), no edema noted Pedal (L), no edema noted Pedal (R), no edema noted Generalized Neurologic: motor weakness Skin: normal pigmentation, warm/dry Joe Salinas DO Jul 19, 2019 08:52
[2019-07-19] MEDS ORDERED: Bisacodyl EC 5mg tab ORAL SCH (09:00)
[2019-07-19] MEDS ORDERED: Levemir Flexpen SUBQ SCH ×2 (09:00)
[2019-07-19] MEDS ORDERED: Magnesium Citrate Liq Btl ORAL SCH (10:00)
--- NOTE | 2019-07-19 10:42 | Nephrology Progress Note ---
Assessment/Plan Problem List: (1) Renal failure (ARF), acute on chronic Assessment: Reactant and down to 1.5 (2) Dehydration (3) Gastrointestinal hemorrhage (4) Diabetes mellitus (5) Anemia (6) Electrolyte imbalance Assessment Upper GI bleed and coffee-ground emesis etiology unclear Acute on chronic renal failure Dehydration Electrolyte imbalance. Hyponatremia Anemia worsened since yesterday Obesity Diabetes and history of diabetic nephropathy significant elevation of hemoglobin A1c Plan Creatinine remains stable Hgb stabilizing Endoscopy results noted And another upper endoscopy today showing active duodenal ulcer transfusion done July 10 and more transfusion will be done today Magnesium sulfate IV supplement Keep n.p.o. on Protonix drip Renal parameters improved IV hydration Keep the blood sugar in check with sliding scale insulin Urine studies Monitor renal parameters Keep the blood pressure and blood sugar in check Anemia work-up Continue per GI advice Subjective ROS Limited/Unobtainable: No Constitutional: Reports: malaise, weakness Objective Objective Last 24 Hour Vital Signs Date Time Temp Pulse Resp B/P (MAP) Pulse Ox O2 Delivery O2 Flow Rate FiO2 07/19/19 08:53 76 112/57 07/19/19 08:00 97.3 63 19 112/57 (75) 98 07/19/19 08:00 Nasal Cannula 2.0 07/19/19 08:00 61 07/19/19 05:01 Nasal Cannula 2.0 07/19/19 04:00 58 07/19/19 04:00 97.5 62 19 130/57 (81) 98 07/19/19 04:00 Nasal Cannula 2.0 07/19/19 00:07 98.2 65 20 109/52 (71) 98 07/19/19 00:00 Nasal Cannula 2.0 07/19/19 00:00 78 07/18/19 22:24 76 115/69 07/18/19 21:01 Nasal Cannula 2.0 07/18/19 21:00 98.2 76 21 115/69 (84) 100 07/18/19 20:30 85 07/18/19 19:16 98 Nasal Cannula 2.0 28 07/18/19 16:00 98.8 70 18 144/72 (96) 97 07/18/19 16:00 Nasal Cannula 2.0 07/18/19 15:08 67 07/18/19 12:00 Nasal Cannula 2.0 07/18/19 12:00 98.6 60 20 125/50 (75) 97 07/18/19 11:53 61 Intake and Output 07/18/19 07/19/19 19:00 07:00 Intake Total 780 ml Output Total 560 ml Balance 220 ml Intake Oral 780 ml Output Urine Total 560 ml # Voids 2 Current Medications Medications (Trade) Dose Ordered Sig/Jayden Route PRN Reason Start Time Stop Time Status Last Admin Dose Admin Acetaminophen (Tylenol) 650 mg Q4H PRN ORAL Mild Pain/Temp > 100.5 07/18/19 22:15 08/17/19 22:14 Artificial Tears (Akwa-Tears) 2 drop EVERY 6 HOURS BOTH EYES 07/19/19 00:00 08/16/19 00:00 07/19/19 06:11 Atorvastatin Calcium (Lipitor) 10 mg BEDTIME ORAL 07/18/19 21:00 10/16/19 20:59 07/18/19 22:24 Barium Sulfate (Varibar Honey) 250 ml NOW PRN MC RAD 07/19/19 13:00 07/21/19 12:49 Barium Sulfate (Varibar [place]) 240 ml NOW PRN MC RAD 07/19/19 13:00 07/21/19 12:49 Barium Sulfate (Varibar Pudding) 230 ml NOW PRN MC RAD 07/19/19 13:00 07/21/19 12:49 Bisacodyl (Dulcolax) 10 mg DAILY ORAL 07/19/19 09:00 08/09/19 08:59 Dextrose (Dextrose 50%) 25 ml Q30M PRN IV Hypoglycemia 07/18/19 22:00 10/15/19 11:29 Dextrose (Dextrose 50%) 50 ml Q30M PRN IV Hypoglycemia 07/18/19 22:00 10/15/19 11:29 Escitalopram Oxalate (Lexapro) 10 mg DAILY ORAL 07/19/19 09:00 08/09/19 08:59 07/19/19 08:51 Gabapentin (Neurontin) 400 mg THREE TIMES A DAY ORAL 07/19/19 09:00 08/09/19 08:59 07/19/19 08:51 Hydralazine HCl (Apresoline) 25 mg Q4H PRN ORAL bp over 160 syst 07/18/19 23:30 08/08/19 11:29 Insulin Aspart (NovoLOG) BEFORE MEALS AND HS SUBQ 07/18/19 21:00 10/16/19 20:59 07/19/19 06:10 Insulin Aspart (NovoLOG) 20 units NOVOTIAC SUBQ 07/19/19 06:30 10/15/19 11:49 07/19/19 06:11 Insulin Detemir (Levemir) 40 units BID SUBQ 07/19/19 09:00 10/15/19 11:29 07/19/19 09:38 Magnesium Citrate (Citrate Of Magnesia) 300 ml ONCE ORAL 07/19/19 10:00 07/19/19 12:00 07/19/19 10:28 Metoprolol Tartrate (Lopressor) 25 mg EVERY 12 HOURS ORAL 07/18/19 21:00 10/16/19 20:59 07/19/19 08:53 Ondansetron HCl (Zofran) 4 mg Q6H PRN IVP Nausea & Vomiting 07/18/19 23:30 08/12/19 17:24 Ondansetron HCl (Zofran) 4 mg Q6H PRN ORAL Nausea & Vomiting 07/18/19 23:30 08/08/19 11:29 Pantoprazole (Protonix) 40 mg BID ORAL 07/19/19 09:00 08/17/19 17:59 07/19/19 08:51 Polyethylene Glycol (Miralax) 17 gm BEDTIME ORAL 07/18/19 21:00 08/17/19 20:59 07/18/19 22:25 Risperidone (RisperDAL) 2 mg DAILY ORAL 07/19/19 09:00 08/24/19 08:59 07/19/19 08:53 Sennosides (Senokot) 8.6 mg EVERY 12 HOURS ORAL 07/18/19 21:00 08/17/19 20:59 07/19/19 08:51 Sennosides (Senokot) 8.6 mg Q6H PRN ORAL Constipation 07/18/19 23:30 08/08/19 11:29 Tamsulosin HCl (Flomax) 0.4 mg QHS ORAL 07/18/19 21:00 08/17/19 20:59 07/18/19 22:25 Temazepam (Restoril) 15 mg BEDTIME PRN ORAL Insomnia 07/18/19 21:00 07/25/19 20:59 Laboratory Tests 07/19/19 06:07: White Blood Count 8.2, Red Blood Count 3.00L, Hemoglobin 9.0L, Hematocrit 26.6L , Mean Corpuscular Volume 89, Mean Corpuscular Hemoglobin 30.1, Mean Corpuscular Hemoglobin Concent 34.0, Red Cell Distribution Width 13.5, Platelet Count 274, Mean Platelet Volume 5.2L, Neutrophils (%) (Auto) 65.9, Lymphocytes ( %) (Auto) 22.7, Monocytes (%) (Auto) 5.9, Eosinophils (%) (Auto) 4.5H, Basophils (%) (Auto) 1.0, Sodium Level 138, Potassium Level 4.2, Chloride Level 104, Carbon Dioxide Level 25, Anion Gap 9, Blood Urea Nitrogen 31H, Creatinine 1.6H, Estimat Glomerular Filtration Rate 43.1, Glucose Level 323H, Calcium Level 9.3 Height (Feet): 5 Height (Inches): 7.00 Weight (Pounds): 230 General Appearance: no apparent distress, lethargic Cardiovascular: normal rate Respiratory/Chest: decreased breath sounds Abdomen: distended Objective No change Dawson Doty MD Jul 19, 2019 10:42
--- NOTE | 2019-07-19 11:17 | Cardiac Electrophysiology PN ---
Assessment/Plan Assessment/Plan 1. Transient atrial flutter in the setting of acute GI bleed. Converted to sinus rhythm. On Metoprolol 25 mg b.i.d. 2. Hypertension. On metoprolol 25 b.i.d. 3. Acute GI bleed. Hemoglobin was down to 6.8, currently is 8.6. S/P EGD by Dr Finnegan with no acute findings. Had Gastritis and bulb DU with no bleeding 4. Renal failure. Creatinine was 1.7, currently is 1.5. Ruled out for ND. Echo EF 60% 5. Hyperlipidemia, on Lipitor. 6. BPH on Flomax. 7. Psychiatric disorder. DW RN OK to DC from [facility] standpoint Subjective Subjective No CP or SOB transferred to P2. In SR. HR stable Objective Last 24 Hour Vital Signs Date Time Temp Pulse Resp B/P (MAP) Pulse Ox O2 Delivery O2 Flow Rate FiO2 07/19/19 08:53 76 112/57 07/19/19 08:00 97.3 63 19 112/57 (75) 98 07/19/19 08:00 Nasal Cannula 2.0 07/19/19 08:00 61 07/19/19 05:01 Nasal Cannula 2.0 07/19/19 04:00 58 07/19/19 04:00 97.5 62 19 130/57 (81) 98 07/19/19 04:00 Nasal Cannula 2.0 07/19/19 00:07 98.2 65 20 109/52 (71) 98 07/19/19 00:00 Nasal Cannula 2.0 07/19/19 00:00 78 07/18/19 22:24 76 115/69 07/18/19 21:01 Nasal Cannula 2.0 07/18/19 21:00 98.2 76 21 115/69 (84) 100 07/18/19 20:30 85 07/18/19 19:16 98 Nasal Cannula 2.0 28 07/18/19 16:00 98.8 70 18 144/72 (96) 97 07/18/19 16:00 Nasal Cannula 2.0 07/18/19 15:08 67 07/18/19 12:00 Nasal Cannula 2.0 07/18/19 12:00 98.6 60 20 125/50 (75) 97 07/18/19 11:53 61 Intake and Output 07/18/19 07/19/19 19:00 07:00 Intake Total 780 ml Output Total 560 ml Balance 220 ml Intake Oral 780 ml Output Urine Total 560 ml # Voids 2 Laboratory Tests Test 07/19/19 06:07 White Blood Count 8.2 K/UL (4.8-10.8) Red Blood Count 3.00 M/UL (4.70-6.10) L Hemoglobin 9.0 G/DL (14.2-18.0) L Hematocrit 26.6 % (42.0-52.0) L Mean Corpuscular Volume 89 FL (80-99) Mean Corpuscular Hemoglobin 30.1 PG (27.0-31.0) Mean Corpuscular Hemoglobin Concent 34.0 G/DL (32.0-36.0) Red Cell Distribution Width 13.5 % (11.6-14.8) Platelet Count 274 K/UL (150-450) Mean Platelet Volume 5.2 FL (6.5-10.1) L Neutrophils (%) (Auto) 65.9 % (45.0-75.0) Lymphocytes (%) (Auto) 22.7 % (20.0-45.0) Monocytes (%) (Auto) 5.9 % (1.0-10.0) Eosinophils (%) (Auto) 4.5 % (0.0-3.0) H Basophils (%) (Auto) 1.0 % (0.0-2.0) Sodium Level 138 MMOL/L (136-145) Potassium Level 4.2 MMOL/L (3.5-5.1) Chloride Level 104 MMOL/L (98-107) Carbon Dioxide Level 25 MMOL/L (21-32) Anion Gap 9 mmol/L (5-15) Blood Urea Nitrogen 31 mg/dL (7-18) H Creatinine 1.6 MG/DL (0.55-1.30) H Estimat Glomerular Filtration Rate 43.1 mL/min (>60) Glucose Level 323 MG/DL (74-106) H Calcium Level 9.3 MG/DL (8.5-10.1) Objective HEAD AND NECK: No JVD. LUNGS: Have decreased breath sounds. CARDIOVASCULAR: Regular S1 and S2 with no gallop or murmur. ABDOMEN: Obese. EXTREMITIES: 1+ pitting edema. Bernardo Stein MD Jul 19, 2019 11:17
[2019-07-19 12:00] VITALS: BP 107/59
[2019-07-19] MEDS ORDERED: Varibar Pudding 230ml MC PRN (13:00)
[2019-07-19] MEDS ORDERED: Varibar Nectar 240ml MC PRN (13:00)
[2019-07-19] MEDS ORDERED: Varibar Honey 250ml MC PRN (13:00)
[2019-07-19] MEDS ORDERED: LORazepam 1mg tab ORAL PRN (13:30)
[2019-07-19] MEDS ORDERED: Haloperidol Decanoate (Long Acting) 50mg Inj IM ONE (13:45)
[2019-07-19] MEDS ORDERED: Tubing IV Secondary IV ONE (14:19)
--- NOTE | 2019-07-19 16:44 | Consultation ---
DATE OF CONSULTATION: 07/19/2019 CONSULTING PHYSICIAN: Deborah Sosa M.D. REFERRING PHYSICIAN: Joe Salinas D.O. HISTORY OF PRESENT ILLNESS: This is a 68-year-old male patient, who came to the hospital because he had GI bleed. The patient came in for GI bleed. He states that he had recent vomiting and GI bleed. He came from [facility] with coffee-ground emesis and he has altered mental status. But because he has a history of psychosis and he does have some mood lability worsened by stress of his medical illness, his attending has requested daily psychiatric consultation for this patient, so he was seen and assessed at bedside. He does have some psychomotor agitation, irritability, confusion, and disorganized thought process. PAST PSYCHIATRIC HISTORY: Paranoid schizophrenia, rule out dementia with psychosis. PAST MEDICAL HISTORY: Diabetes, CVA, obesity, and encephalopathy. ALLERGIES: Penicillin, aspirin, sulfamethoxazole and trimethoprim. PSYCHOTROPIC MEDICATIONS ON ADMISSION: The patient is currently on Neurontin 400 mg three times a day. He is also on Lexapro 10 mg daily as well as Risperdal 2 mg daily. SUBSTANCE USE HISTORY: Denies any use of any drug or alcohol use at this time. SOCIAL HISTORY: The patient is currently living in a [facility], financially supported by [facility] and Medicare. FAMILY PSYCHIATRIC HISTORY: Denies. PAIN ASSESSMENT: 06/10 pain. DEVELOPMENTAL PROBLEMS: Denies. MENTAL STATUS EXAMINATION: This is a 68-year-old male. Appearance is disheveled. Attitude, irritable and agitated. Affect, guarded and restricted. Intellect is poor, he does not know current events and does not know last four presidents. Mood, depressed and anxious. Motor activity, psychomotor agitation. Attention span is poor because he cannot do serial sevens or spell world backwards. Orientation x2, he is oriented to person and place, not to time or situation. Speech is low volume and slurred. Thought process, disorganized and illogical. Thought content, auditory hallucinations and paranoid delusions. Perception is poor because he has perceptual disturbance such as auditory hallucinations and paranoid delusions. Abstract reasoning is poor because he does not understand proverbs, only has concrete thinking. Insight is poor because he does not recognize having any psychiatric disorder. Judgment is poor because he cannot make clear medical decisions. DIAGNOSIS: Paranoid schizophrenia, rule out dementia with psychosis. PLAN: Plan for this patient is to treat him with a medication regimen consisting of Lexapro 10 mg daily, Risperdal 2 mg daily, and Neurontin 400 mg three times a day. Also, I am going to add a dose of Ativan 1 mg every 6 hours p.r.n. anxiety and agitation. A 20 minutes of cognitive behavioral therapy was provided to help him identify his automatic negative thoughts and help him convert those negative thoughts to more positive thoughts to reduce depression, anxiety, and mood lability. A 20 minutes of cognitive behavioral therapy provided. Encouraged to interact appropriately with staff and other patients. Chart reviewed. Discussed with staff. Seen and assessed at beside. Deborah Sosa M.D. DR: WALLACE JOB#: [id number] CC:
--- NOTE | 2019-07-21 17:33 | Discharge Summary ---
Discharge Summary Discharge Summary _ DATE OF ADMISSION: 07/09/2019 DATE OF DISCHARGE: 07/19/2019 DISCHARGED BY: Dr. Joe Salinas CONSULTANTS: Dr. Deborah Love BRIEF HOSPITAL COURSE: Patient is a 68-year-old male, from [facility], presented to ED due to recurrent vomiting for 2 days. Patient has history of hypertension, GERD, obesity, diabetes, COPD and CVA with right arm hemiparesis.. He presented with acute episodes of coffee-ground emesis. Upon evaluation at ED, blood pressure was on the low side. Hemoglobin 9.3 and hematocrit 27. BUN was elevated to 72 and creatinine 3.6. Potassium was high normal. Lactic acid was elevated to 2.1. He was given IV hydration. He was given famotidine and antiemetics. He was admitted for evaluation of GI bleed. He was placed on n.p.o. He was given IV hydration. He was placed on IV Protonix. Blood glucose was monitored. Kidney function monitored. He was given blood transfusion. He underwent EGD with flexible sigmoidoscopy on 07/11/2019. Findings showed 3 shallow ulcerations at the junction of the antrum and body of the stomach around the greater curvature, unlikely the source of bleeding. Patient had poor prep. Unable to perform colonoscopy. Scope was advanced from rectum to the sigmoid colon. The patient had evidence of maroonish colored stool suggestive of GI bleed. Patient was noted to have full-thickness stage IV pressure injury on the left buttocks. Base of scrotum was erythematous with small area of shearing. He has scar to the left heel. He was given wound care and incontinence care. He was placed on APM/IRIS overlay mattress with frequent repositioning and offloading. He continued to have anemia. On on 07/12/2019, he underwent colonoscopy. Patient had a scattered diverticulosis in the left colon. No obvious mass, polyp or pathology seen. No evidence of active lower GI bleed. There was evidence of internal hemorrhoids. On 07/13/2019, patient had bloody emesis and bowels. He was transferred to ICU. He was placed on n.p.o. He received 2 units packed RBC blood transfusion. He continued to have recurrent bleeding. He was noted to have maroon-colored stools. 2 more units of blood given. Emergency endoscopy was done on 2019. There was a flat wide-based duodenal ulcer in the bulb without active bleeding. Patient tolerated procedure well and was transferred back to ICU. He was continued on Protonix drip. Patient had an episode of tachycardia and atrial flutter. There was a drop in patient's hemoglobin. He was started on metoprolol. He was given IV magnesium sulfate supplement. He had transient atrial flutter. He converted back to sinus rhythm. Diet was advanced. He was tolerating diet. There was no further bleeding. Hemoglobin was stable. Protonix was changed to twice daily. Glucose levels were elevated. Hemoglobin A1c 12. He was started on 30 units Levemir twice daily and NovoLog 20 units AC meal. He was placed on NovoLog sliding scale. Glucose remained elevated. Levemir was increased to 40 units twice daily. Patient had paranoid schizophrenia. He was treated with Lexapro, Risperdal and Neurontin. He was given cognitive behavioral therapy. CBC was stable. Patient was tolerating diet well. Patient was then cleared for discharge back to [facility]. 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
== END 2019-07-19 14:20 | DRG 377 ==
LOC: EDBD 12:44 → EMR 14:21 → 2E 14:26 → EDBEDREQ 16:25 → ICU 07-13 03:56 → 2W 07-16 11:05 → 2E 07-18 20:31
DX: K25.4 Chronic or unspecified gastric ulcer with hemorrhage (principal); L89.324 Pressure ulcer of left buttock, stage 4; N17.9 Acute kidney failure, unspecified; E87.1 Hypo-osmolality and hyponatremia; G93.40 Encephalopathy, unspecified; I48.92 Unspecified atrial flutter; D68.59 Other primary thrombophilia; F20.0 Paranoid schizophrenia; F33.9 Major depressive disorder, recurrent, unspecified; K26.4 Chronic or unspecified duodenal ulcer with hemorrhage; E66.9 Obesity, unspecified; E86.0 Dehydration; D50.0 Iron deficiency anemia secondary to blood loss (chronic); I12.9 Hypertensive chronic kidney disease with stage 1 through stage 4 chronic kidney disease, or unspecified chronic kidney disease; E11.22 Type 2 diabetes mellitus with diabetic chronic kidney disease; E11.65 Type 2 diabetes mellitus with hyperglycemia; N18.9 Chronic kidney disease, unspecified; J44.9 Chronic obstructive pulmonary disease, unspecified; E11.21 Type 2 diabetes mellitus with diabetic nephropathy; R00.0 Tachycardia, unspecified; E78.5 Hyperlipidemia, unspecified; N40.0 Benign prostatic hyperplasia without lower urinary tract symptoms; K29.70 Gastritis, unspecified, without bleeding; K57.90 Diverticulosis of intestine, part unspecified, without perforation or abscess without bleeding; K64.8 Other hemorrhoids; F03.90 Unspecified dementia, unspecified severity, without behavioral disturbance, psychotic disturbance, mood disturbance, and anxiety; F41.9 Anxiety disorder, unspecified; I69.961 Other paralytic syndrome following unspecified cerebrovascular disease affecting right dominant side; Z68.36 Body mass index [BMI] 36.0-36.9, adult
CPT/HCPCS: 36415; 71045; 74176; 74230; 80048; 80053; 80061; 80076; 81001; 82550; 82607; 82728; 82746; 82962; 82977; 83036; 83540; 83550; 83605; 83690; 83735; 83880; 84100; 84300; 84443; 84484; 84550; 85007; 85025; 85610; 85730; 86140; 86850; 86900; 86901; 86920; 87040; 87081; 89050; 93005; 93306; 93970; 94003; 94150; 94664; 96361; 96374; 96375; 99285; J1815; J2405; J7030; S5561

== ENCOUNTER 2019-08-28 21:48 | Inpatient (IN) | payer MEDICARE, MEDICAID ==
[~2019-08-28] VITALS: Ht 177.8 cm; Wt 95.3 kg
[~2019-08-28 21:48] MED LIST changes: +ACETAMINOPHEN325 M1 ORAL; +ATORVASTATIN CA10 MG ORAL; +BISACODYL10 M1 RC; +BISACODYL5 MG ORAL; +DEPAKOTE ER250 MG ORAL; +DIOVAN80 MG ORAL; +FISH OIL CAP1000 MG ORAL; +HUMULIN 70100 UNIT/2 SUBQ; +HUMULIN N100 UNIT/1 SUBQ; +LEVEMIR100 UNIT/1 SUBQ; +MILK OF MA400 MG/51 ORAL; +ONDANSETRON4 MG/2 M2 IM; +RISPERDAL0.5 MG ORAL; +SENNA8.6 M2 PO; +TRADJENTA5 MG PO; +ZINC SULFATE220 M1 ORAL; +ZOFRAN4 M3 ORAL
[2019-08-28 22:00] VITALS: BP 116/57
[2019-08-28] MEDS ORDERED: Solu-MEDROL 125mg Inj IVP ONE (22:00)
[2019-08-28] MEDS ORDERED: Albuterol 90mcg Inhaler 8gm INH PRN (22:00)
[2019-08-28] MEDS ORDERED: Acetaminophen 500mg (ES) tab ORAL ONE ×2 (22:09→22:15)
--- NOTE | 2019-08-28 22:34 | Emergency Room Report ---
History of Present Illness General Chief Complaint: Upper Respiratory Illness Source: Patient, Medical Record, EMS Present Illness HPI Patient is a 68-year-old male multiple medical history including diabetes, anemia, chronic renal failure, dementia, CVA with residual right-sided deficit, BPH, COPD, hypertension, morbid obesity with DNR in chart who was brought in by EMS from his extended care facility for fever. Patient complains of shortness of breath and occasional cough. He complains of generalized body aches. Patient denies any chest pain. Patient is unaware if there is anyone in his facility who is currently suffering from COVID-19. Patient does complain of lower back pain due to a decubitus ulcer. Patient also complains of diarrhea which is nonbloody but denies any abdominal pain, nausea or vomiting. Allergies: Coded Allergies: ASPIRIN (Verified Allergy, Unknown, 11/22/17) PENICILLINS (Verified Allergy, Unknown, 11/22/17) SULFAMETHOXAZOLE (Verified Allergy, Unknown, 11/22/17) TRIMETHOPRIM (Verified Allergy, Unknown, 11/22/17) COVID-19 Screening Contact w/high risk pt: Yes Recent Travel to affected area: No Experienced COVID-19 symptoms?: Yes COVID-19 symptoms experienced: Fever (T>100.4F or >38C), Cough Patient History Reviewed Nursing Documentation: PMH: Agreed; PSxH: Agreed Nursing Documentation-PMH Hx Cardiac Problems: Yes - HLD; TIA Hx Hypertension: Yes Hx COPD: Yes Hx Diabetes: Yes Hx Cancer: No Hx Gastrointestinal Problems: Yes - GI BLEED; History Of Psychiatric Problem: Yes - ANXIETY; DEPRESSION; Hx Neurological Problems: Yes - ULCER; BPH; POLYNEURO; DEMENTIA; SCHIZ; BIPOLAR Hx Cerebrovascular Accident: Yes Hx Seizures: Yes - EPILEPSY Review of Systems All Other Systems: negative except mentioned in HPI Physical Exam Vital Signs Date Time Temp Pulse Resp B/P (MAP) Pulse Ox O2 Delivery O2 Flow Rate FiO2 08/28/19 21:51 98.8 94 18 100/63 (75) 84 Room Air Sp02 EP Interpretation: reviewed, abnormal - hypoxic General Appearance: no apparent distress, alert, GCS 15, non-toxic Head: normocephalic, atraumatic Eyes: bilateral eye normal inspection, bilateral eye PERRL ENT: hearing grossly normal, normal pharynx, no angioedema, normal voice Neck: full range of motion, supple/symm/no masses Respiratory: rhonchi Cardiovascular #1: regular rate, rhythm Gastrointestinal: normal bowel sounds, non tender, soft, non-distended, no guarding, no rebound, other - obese abdomen Rectal: deferred Neurologic: other - RUE 3/5 motor strength, states due to old CVA Skin: no rash Lymphatic: no adenopathy Procedures Critical Care Time Critical Care Time Total critical care time: Approximately 35 minutes. Due to a high probability of clinically significant, life threatening deterioration, the patient required my highest level of preparedness to intervene emergently and I personally spent this critical care time directly and personally managing the patient. This critical care time included obtaining a history; examining the patient; pulse oximetry; ordering and review of studies; arranging urgent treatment with development of a management plan; evaluation of patient's response to treatment ; frequent reassessment; and, discussions with other providers.This critical care time was performed to assess and manage the high probability of imminent, life-threatening deterioration that could result in multi-organ failure. It was exclusive of separately billable procedures and treating other patients and teaching time. Please see MDM section and the rest of the note for further information on patient assessment and treatment. Medical Decision Making Diagnostic Impression: Primary Impression: Pneumonia Additional Impressions: Leukocytosis Hypoxia Suspected COVID-19 virus infection ER Course Patient initially hypoxic. On 4 L nasal cannula patient's oxygen saturation is now 96%. He is in no acute distress and able to speak in complete sentences Patient's oxygen saturation continues to be in the mid to high 90s on nasal cannula. Patient has reported history of COPD. Patient given albuterol inhaler 2 puffs as well as IV Solu-Medrol. His blood gas demonstrates hypoxia without hypercarbia. Chest x-ray demonstrates bibasilar infiltrates. Blood culture sent and patient started on cefepime as well as vancomycin. COVID-19 swab has been sent. Patient is high risk due to the fact that he is coming from a extended care facility. Patient will be admitted for further treatment and evaluation. Laboratory Tests Test 08/28/19 22:01 08/28/19 22:10 White Blood Count 4.7 K/UL (4.8-10.8) L Red Blood Count 4.10 M/UL (4.70-6.10) L Hemoglobin 11.2 G/DL (14.2-18.0) L Hematocrit 35.8 % (42.0-52.0) L Mean Corpuscular Volume 87 FL (80-99) Mean Corpuscular Hemoglobin 27.4 PG (27.0-31.0) Mean Corpuscular Hemoglobin Concent 31.3 G/DL (32.0-36.0) L Red Cell Distribution Width 15.1 % (11.6-14.8) H Platelet Count 270 K/UL (150-450) Mean Platelet Volume 6.5 FL (6.5-10.1) Neutrophils (%) (Auto) 58.2 % (45.0-75.0) Lymphocytes (%) (Auto) 27.5 % (20.0-45.0) Monocytes (%) (Auto) 12.0 % (1.0-10.0) H Eosinophils (%) (Auto) 1.7 % (0.0-3.0) Basophils (%) (Auto) 0.7 % (0.0-2.0) Prothrombin Time 10.4 SEC (9.30-11.50) Prothrombin Time INR 1.0 (0.9-1.1) Activated Partial Thromboplast Time 31 SEC (23-33) D-Dimer 0.62 mg/L FEU (0.00-0.49) H Sodium Level 136 MMOL/L (136-145) Potassium Level 4.6 MMOL/L (3.5-5.1) Chloride Level 101 MMOL/L (98-107) Carbon Dioxide Level 28 MMOL/L (21-32) Anion Gap 7 mmol/L (5-15) Blood Urea Nitrogen 18 mg/dL (7-18) Creatinine 1.6 MG/DL (0.55-1.30) H Estimated Glomerular Filtration Rate 43.1 mL/min (>60) Glucose Level 164 MG/DL (74-106) H Lactic Acid Level 0.80 mmol/L (0.4-2.0) Calcium Level 9.2 MG/DL (8.5-10.1) Magnesium Level 2.4 MG/DL (1.8-2.4) Ferritin 253 NG/ML (8-388) Total Bilirubin 0.4 MG/DL (0.2-1.0) Aspartate Amino Transferase (AST) 49 U/L (15-37) H Alanine Aminotransferase (ALT) 36 U/L (12-78) Alkaline Phosphatase 116 U/L (46-116) Lactate Dehydrogenase 314 U/L (81-234) H Total Creatine Kinase 35 U/L (26-308) Troponin I 0.000 ng/mL (0.000-0.056) C-Reactive Protein, Quantitative 4.8 mg/dL (0.00-0.90) H Pro-B-Type Natriuretic Peptide 167 pg/mL (0-125) H Total Protein 8.5 G/DL (6.4-8.2) H Albumin 2.9 G/DL (3.4-5.0) L Globulin 5.6 g/dL Albumin/Globulin Ratio 0.5 (1.0-2.7) L Arterial Blood pH 7.448 (7.350-7.450) Arterial Blood Partial Pressure CO2 41.6 mmHg (35.0-45.0) Arterial Blood Partial Pressure O2 57.6 mmHg (75.0-100.0) L Arterial Blood HCO3 28.1 mmol/L (22.0-26.0) H Arterial Blood Oxygen Saturation 90.5 % (95-100) L Arterial Blood Base Excess 3.8 (-2-2) H Rob Test Positive Microbiology Date/Time Source Procedure Growth Status 08/28/19 22:01 Nasal Aspirate - Final Complete 08/28/19 22:01 Nasal Aspirate - Final Complete EKG Diagnostic Results EKG Time: 21:58 EP Interpretation: MD Paulo Rate: normal Rhythm: NSR ST Segments: no acute changes ASA given to the pt in ED: No Rhythm Strip Diag. Results Rhythm Strip Time: 22:33 EP Interpretation: yes - MD Paulo Rate: 93 Rhythm: NSR, no PVC's, no ectopy Last Vital Signs Date Time Temp Pulse Resp B/P (MAP) Pulse Ox O2 Delivery O2 Flow Rate FiO2 08/28/19 22:00 99.3 94 25 116/57 90 Room Air Status: improved Disposition: ADMITTED INPATIENT Condition: Critical Physician Consult: Dr. Joe Salinas, patients PCP to admit to Telemetry. Referrals: Joe Salinas DO (PCP) Lakia Bates M.D. Aug 28, 2019 22:34
[2019-08-28 23:11] LABS: BASOPHILS % (AUTO) 0.7 % (0.0-2.0); EOSINOPHILS % (AUTO) 1.7 % (0.0-3.0); HEMATOCRIT 35.8 % (42.0-52.0); HEMOGLOBIN 11.2 G/DL (14.2-18.0); LYMPHOCYTES % (AUTO) 27.5 % (20.0-45.0); MEAN CORPUSCULAR VOLUME 87 FL (80-99); NEUTROPHILS % (AUTO) 58.2 % (45.0-75.0); PLATELET COUNT 270 K/UL (150-450); RED CELL DISTRIBUTION WIDTH 15.1 % (11.6-14.8); WHITE BLOOD COUNT 4.7 K/UL (4.8-10.8)
[2019-08-28] MEDS ORDERED: POLYETHYLENE GL17 GM ORAL (23:14)
[2019-08-28] MEDS ORDERED: HYDRALAZINE HCL25 M1 ORAL (23:14)
[2019-08-28] MEDS ORDERED: PROTONIX40 MG ORAL (23:14)
[2019-08-28] MEDS ORDERED: METOPROLOL TART25 MG ORAL (23:14)
[2019-08-28 23:27] LABS: ANION GAP 7 mmol/L (5-15); BLOOD UREA NITROGEN 18 mg/dL (7-18); CALCIUM 9.2 MG/DL (8.5-10.1); CARBON DIOXIDE 28 MMOL/L (21-32); CHLORIDE 101 MMOL/L (98-107); CREATININE 1.6 MG/DL (0.55-1.30); POTASSIUM 4.6 MMOL/L (3.5-5.1); SODIUM 136 MMOL/L (136-145)
[2019-08-28 23:43] LABS: ALANINE AMINOTRANSFERASE 36 U/L (12-78); ALBUMIN 2.9 G/DL (3.4-5.0); ALBUMIN/GLOBULIN RATIO 0.5 (1.0-2.7); ALKALINE PHOSPHATASE 116 U/L (46-116); ASPARTATE AMINO TRANSFERASE 49 U/L (15-37); BILIRUBIN,TOTAL 0.4 MG/DL (0.2-1.0); CREATINE KINASE 35 U/L (26-308); FERRITIN 253 NG/ML (8-388)
[2019-08-28] MEDS ORDERED: Vancomycin 1.5gm/NS Premix 275 ML IVPB STA (23:58)
[2019-08-29] MEDS ORDERED: Cefepime HCl 2 GM in D5W 55 ML IVPB ONE ×2
[2019-08-29] MEDS ORDERED: Vancomycin 1.5gm vial IVPB ONE (00:36)
[2019-08-29] MEDS ORDERED: Vancomycin 1 GM in NS 275 ML IVPB ONE (00:45)
[2019-08-29 00:49] LABS: BILIRUBIN, URINE NEGATIVE (NEGATIVE); COLOR,URINE PALE YELLOW; GLUCOSE, URINE (UA) 1+ (NEGATIVE); KETONES,URINE NEGATIVE (NEGATIVE); LEUKOCYTE ESTERASE ,URINE 3+ (NEGATIVE); NITRITE,URINE POSITIVE (NEGATIVE); PH,URINE 6.5 (4.5-8.0); PROTEIN,URINE 3+ (NEGATIVE); UROBILINOGEN,URINE NORMAL MG/DL (0.0-1.0)
[2019-08-29 01:03] LABS: APPEARANCE,URINE SLIGHTLY CLOUDY
[2019-08-29 02:00] VITALS: BP 108/60
[2019-08-29 04:00] VITALS: BP 113/64
[2019-08-29] MEDS ORDERED: Fleet's Enema 133ml RECTAL PRN (05:30)
[2019-08-29] MEDS ORDERED: Milk of Magnesia 30ml Ud ORAL PRN (05:30)
[2019-08-29] MEDS: HydrALAZINE 25mg tab ORAL SCH ×3 (06:00→18:18)
[2019-08-29] MEDS: NovoLOG Insulin Flexpen SUBQ SCH ×5 (06:30→21:42)
[2019-08-29] MEDS: Aztreonam Inj 1 GM in D5W 55 ML IVPB SCH ×3 (06:42→21:31)
[2019-08-29] MEDS: Albuterol 90mcg Inhaler 8gm INH SCH ×5 (07:00→22:44)
[2019-08-29] MEDS: Ipratropium Bromide Inhaler INH SCH ×5 (07:00→22:44)
[2019-08-29 08:00] VITALS: BP 156/75
[2019-08-29] MEDS: Miralax 17gm pkt ORAL SCH (09:35)
[2019-08-29] MEDS: Zinc Sulfate 220mg cap ORAL SCH (09:35)
[2019-08-29] MEDS: Ascorbic Acid 500mg tab ORAL SCH (09:36)
[2019-08-29] MEDS: Docusate 100mg cap ORAL SCH (09:36)
--- NOTE | 2019-08-29 10:22 | Diagnostic Imaging Report ---
Indication: Shortness of breath Technique: One view of the chest Comparison: 07/09/2019 Findings: Body habitus limits evaluation. Inspiration is suboptimal. Patient is rotated to the right. There is suggestion of a focal hazy peripheral infiltrate in the inferior right upper lobe. There is some atelectasis at the left lung base. The heart size is upper limits of normal. Impression: Suspect faint hazy peripheral infiltrate in the inferior right upper lobe. Left basilar atelectasis
[2019-08-29] MEDS: Brimonidine 0.2% Opth Sol BOTH EYES SCH ×3 (11:07→18:15)
[2019-08-29 11:21] VITALS: BP 107/53
--- NOTE | 2019-08-29 13:23 | Consultation ---
History of Present Illness General Date patient seen: Aug 29, 2019 Chief Complaint: Upper Respiratory Illness Present Illness HPI 68 y/o M with hx of Dm2, anemia, CKD, HLD, GIB, Anxiety, schizoaffective disorder, seizure disorder, Dementia, CVA w/ residual R side deficit, BPH, COPD , HTN, morbid obesity, DNR status, SNF resident is brought to ED on 08/28/19 with fever, SOB, generalized body aches, diarrhea and occasional cough Denied chest pain, abd pain, nausea, vomiting. Allergies: Coded Allergies: ASPIRIN (Verified Allergy, Unknown, 11/22/17) PENICILLINS (Verified Allergy, Unknown, 11/22/17) SULFAMETHOXAZOLE (Verified Allergy, Unknown, 11/22/17) TRIMETHOPRIM (Verified Allergy, Unknown, 11/22/17) Medication History Scheduled Ascorbic Acid* (Vitamin C*), 500 MG ORAL DAILY, (Reported) Atorvastatin Calcium* (Lipitor*), 10 MG ORAL BEDTIME, (Reported) Brimonidine Tartrate* (Alphagan*), 1 DROP BOTH EYES TID, (Reported) Docusate Sodium* (Colace*), 100 MG ORAL DAILY, (Reported) Escitalopram Oxalate* (Lexapro*), 10 MG ORAL DAILY, (Reported) Gabapentin* (Gabapentin*), 400 MG ORAL THREE TIMES A DAY, (Reported) Hum Insulin Nph/Reg Insulin Hm (Humulin 70-30 Vial), 20 UNITS SUBQ EVERY EVENING , (Reported) Hydralazine Hcl* (Hydralazine Hcl*), 25 MG ORAL EVERY 6 HOURS, (Reported) Insulin Detemir (Levemir), 0 SUBQ BID, (Reported) Ipratropium/Albuterol Sulfate (DuoNeb 0.5-3(2.5)mg/3ml), 3 ML HHN Q4HR, ( Reported) Metoprolol Tartrate* (Metoprolol Tartrate*), 25 MG ORAL EVERY 12 HOURS, ( Reported) Multivitamins* (Multivitamins*), 1 TAB ORAL DAILY, (Reported) Pantoprazole* (Protonix*), 40 MG ORAL EVERY 12 HOURS, (Reported) Polyethylene Glycol 3350* (Polyethylene Glycol 3350*), 17 GM ORAL DAILY, ( Reported) Risperidone* (Risperdal*), 0.5 MG ORAL BID, (Reported) Sennosides (Senna), 17.2 MG PO QHS, (Reported) Tamsulosin HCl (Flomax), 0.4 MG ORAL QHS, (Reported) Zinc Sulfate (Zinc Sulfate*), 220 MG ORAL DAILY, (Reported) Scheduled PRN Acetaminophen* (Acetaminophen 325MG Tablet*), 650 MG ORAL Q4H PRN for Mild Pain/ Temp > 100.5, (Reported) Bisacodyl (Bisacodyl), 10 MG RC DAILY PRN for Constipation, (Reported) Glucagon (Glucagen), 1 MG IM for Hypoglycemia, (Reported) Magnesium Hydroxide* (Milk Of Magnesia*), 30 ML ORAL QHS PRN for CONSTIPATION, ( Reported) Na Phos,M-B/Na Phos,Di-Ba* (Fleet Enema*), 133 ML RECTAL EVERY OTHER DAY PRN for Constipation, (Reported) Ondansetron* (Zofran 4 Mg/2 Ml Vial*), 4 MG IM Q6H PRN for Nausea & Vomiting, ( Reported) Temazepam* (Restoril*), 15 MG ORAL BEDTIME PRN for Insomnia, (Reported) Discontinued Medications Amlodipine Besylate (Norvasc), 2.5 MG ORAL DAILY, (Reported) Discontinued Reason: MD discontinued med Divalproex Sodium* (Depakote Er*), 750 MG ORAL EVERY 12 HOURS, (Reported) Discontinued Reason: MD discontinued med Famotidine* (Pepcid 20mg tablet*), 20 MG ORAL ACBREAKFAST, (Reported) Discontinued Reason: MD discontinued med Fish Oil (Fish Oil 1,000 mg Capsule), 1,000 MG ORAL DAILY, (Reported) Discontinued Reason: MD discontinued med Linagliptin (Tradjenta), 5 MG PO DAILY, (Reported) Discontinued Reason: MD discontinued med Nateglinide (Starlix), 120 MG ORAL THREE TIMES A DAY, (Reported) Discontinued Reason: MD discontinued med Valsartan (Diovan), 80 MG ORAL DAILY, (Reported) Discontinued Reason: MD discontinued med Patient History Healthcare decision maker Resuscitation status Advanced Directive on File Patient History Narrative Pmhx: as above SHx: reviewed Fhx: non contributory Physical Exam Physical Exam Narrative General Appearance: no apparent distress, alert Head: normocephalic, atraumatic Eyes: bilateral eye normal inspection, bilateral eye PERRL ENT: hearing grossly normal, normal pharynx, no angioedema, normal voice Neck: full range of motion, supple/symm/no masses Respiratory: rhonchi Cardiovascular: regular rate, rhythm Gastrointestinal: normal bowel sounds, non tender, soft, non-distended, no guarding, no rebound, other - obese abdomen Skin: no rash \ Last 24 Hour Vital Signs Date Time Temp Pulse Resp B/P (MAP) Pulse Ox O2 Delivery O2 Flow Rate FiO2 08/29/19 11:39 107/53 08/29/19 11:21 97.7 77 20 107/53 (71) 98 08/29/19 09:36 95 156/75 08/29/19 09:00 Nasal Cannula 4.0 08/29/19 08:00 79 08/29/19 08:00 96.0 95 16 156/75 (102) 97 08/29/19 06:00 113/64 08/29/19 04:00 4.0 08/29/19 04:00 97.2 70 16 113/64 (80) 96 08/29/19 03:36 58 08/29/19 02:27 Nasal Cannula 4.0 08/29/19 02:00 97.2 73 16 108/60 (76) 98 08/29/19 01:44 75 08/29/19 01:20 98.0 85 22 124/69 95 Nasal Cannula 4.0 08/28/19 22:43 98.0 08/28/19 22:00 99.3 94 25 116/57 90 Room Air 08/28/19 22:00 94 25 Room Air 08/28/19 21:51 98.8 94 18 100/63 (75) 84 Room Air Intake and Output 08/28/19 08/29/19 19:00 07:00 Intake Total 330 ml Balance 330 ml Intake IV Total 330 ml Laboratory Tests Test 08/28/19 22:01 08/28/19 22:10 08/29/19 00:11 White Blood Count 4.7 K/UL (4.8-10.8) L Red Blood Count 4.10 M/UL (4.70-6.10) L Hemoglobin 11.2 G/DL (14.2-18.0) L Hematocrit 35.8 % (42.0-52.0) L Mean Corpuscular Volume 87 FL (80-99) Mean Corpuscular Hemoglobin 27.4 PG (27.0-31.0) Mean Corpuscular Hemoglobin Concent 31.3 G/DL (32.0-36.0) L Red Cell Distribution Width 15.1 % (11.6-14.8) H Platelet Count 270 K/UL (150-450) Mean Platelet Volume 6.5 FL (6.5-10.1) Neutrophils (%) (Auto) 58.2 % (45.0-75.0) Lymphocytes (%) (Auto) 27.5 % (20.0-45.0) Monocytes (%) (Auto) 12.0 % (1.0-10.0) H Eosinophils (%) (Auto) 1.7 % (0.0-3.0) Basophils (%) (Auto) 0.7 % (0.0-2.0) Prothrombin Time 10.4 SEC (9.30-11.50) Prothromb Time International Ratio 1.0 (0.9-1.1) Activated Partial Thromboplast Time 31 SEC (23-33) D-Dimer 0.62 mg/L FEU (0.00-0.49) H Sodium Level 136 MMOL/L (136-145) Potassium Level 4.6 MMOL/L (3.5-5.1) Chloride Level 101 MMOL/L (98-107) Carbon Dioxide Level 28 MMOL/L (21-32) Anion Gap 7 mmol/L (5-15) Blood Urea Nitrogen 18 mg/dL (7-18) Creatinine 1.6 MG/DL (0.55-1.30) H Estimat Glomerular Filtration Rate 43.1 mL/min (>60) Glucose Level 164 MG/DL (74-106) H Lactic Acid Level 0.80 mmol/L (0.4-2.0) Calcium Level 9.2 MG/DL (8.5-10.1) Magnesium Level 2.4 MG/DL (1.8-2.4) Ferritin 253 NG/ML (8-388) Total Bilirubin 0.4 MG/DL (0.2-1.0) Aspartate Amino Transf (AST/SGOT) 49 U/L (15-37) H Alanine Aminotransferase (ALT/SGPT) 36 U/L (12-78) Alkaline Phosphatase 116 U/L (46-116) Lactate Dehydrogenase 314 U/L (81-234) H Total Creatine Kinase 35 U/L (26-308) Troponin I 0.000 ng/mL (0.000-0.056) C-Reactive Protein, Quantitative 4.8 mg/dL (0.00-0.90) H Pro-B-Type Natriuretic Peptide 167 pg/mL (0-125) H Total Protein 8.5 G/DL (6.4-8.2) H Albumin 2.9 G/DL (3.4-5.0) L Globulin 5.6 g/dL Albumin/Globulin Ratio 0.5 (1.0-2.7) L Arterial Blood pH 7.448 (7.350-7.450) Arterial Blood Partial Pressure CO2 41.6 mmHg (35.0-45.0) Arterial Blood Partial Pressure O2 57.6 mmHg (75.0-100.0) L Arterial Blood HCO3 28.1 mmol/L (22.0-26.0) H Arterial Blood Oxygen Saturation 90.5 % (95-100) L Arterial Blood Base Excess 3.8 (-2-2) H Rob Test Positive Urine Color Pale yellow Urine Appearance Slightly cloudy Urine pH 6.5 (4.5-8.0) Urine Specific [place] 1.010 (1.005-1.035) Urine Protein 3+ (NEGATIVE) H Urine Glucose (UA) 1+ (NEGATIVE) H Urine Ketones Negative (NEGATIVE) Urine Blood 2+ (NEGATIVE) H Urine Nitrite Positive (NEGATIVE) H Urine Bilirubin Negative (NEGATIVE) Urine Urobilinogen Normal MG/DL (0.0-1.0) Urine Leukocyte Esterase 3+ (NEGATIVE) H Urine RBC 2-4 /HPF (0 - 0) H Urine WBC Tntc /HPF (0 - 0) H Urine Squamous Epithelial Cells Few /LPF (NONE/OCC) Urine Bacteria Many /HPF (NONE) H Microbiology Date/Time Source Procedure Growth Status 08/28/19 22:01 Nasal Aspirate - Final Complete 08/28/19 22:01 Nasal Aspirate - Final Complete Height (Feet): 5 Height (Inches): 10.00 Weight (Pounds): 210 Medications Current Medications Medications (Trade) Dose Ordered Sig/Jayden Route PRN Reason Start Time Stop Time Status Last Admin Dose Admin Acetaminophen (Tylenol) 650 mg Q4H PRN ORAL MILD/TEMP 08/29/19 05:30 09/28/19 05:29 Albuterol Sulfate (Proventil MDI) 1 puff Q4HRT INH 08/29/19 07:00 11/27/19 06:59 08/29/19 11:37 Ascorbic Acid (Vitamin C) 500 mg DAILY ORAL 08/29/19 09:00 09/28/19 08:59 08/29/19 09:36 Atorvastatin Calcium (Lipitor) 10 mg BEDTIME ORAL 08/29/19 21:00 11/27/19 20:59 Aztreonam 1 gm/ Dextrose 55 ml @ 110 mls/hr Q8HR IVPB 08/29/19 06:00 09/05/19 05:59 08/29/19 06:42 Bisacodyl (Dulcolax) 10 mg DAILY PRN RECTAL Constipation 08/29/19 05:30 11/27/19 05:29 Brimonidine Tartrate (Alphagan) 1 drop TID BOTH EYES 08/29/19 09:00 11/27/19 08:59 08/29/19 12:38 Dextrose (Dextrose 50%) 25 ml Q30M PRN IV Hypoglycemia 08/29/19 05:30 11/27/19 05:29 Dextrose (Dextrose 50%) 50 ml Q30M PRN IV Hypoglycemia 08/29/19 05:30 11/27/19 05:29 Docusate Sodium (Colace) 100 mg DAILY ORAL 08/29/19 09:00 09/28/19 08:59 08/29/19 09:36 Escitalopram Oxalate (Lexapro) 10 mg DAILY ORAL 08/29/19 09:00 09/28/19 08:59 08/29/19 09:35 Gabapentin (Neurontin) 400 mg THREE TIMES A DAY ORAL 08/29/19 09:00 09/28/19 08:59 08/29/19 12:38 Hydralazine HCl (Apresoline) 25 mg EVERY 6 HOURS ORAL 08/29/19 06:00 11/27/19 05:59 Insulin Aspart (NovoLOG) BEFORE MEALS AND HS SUBQ 08/29/19 06:30 11/27/19 06:29 08/29/19 12:35 Ipratropium [place] (Atrovent Inh) 1 puffs Q4HRT INH 08/29/19 07:00 09/28/19 06:59 08/29/19 12:38 Magnesium Hydroxide (Mom) 30 ml QHS PRN ORAL CONSTIPATION 08/29/19 05:30 09/28/19 05:29 Metoprolol Tartrate (Lopressor) 25 mg EVERY 12 HOURS ORAL 08/29/19 09:00 11/27/19 08:59 08/29/19 09:36 Multivitamins (Multivitamins) 1 tab DAILY ORAL 08/29/19 09:00 09/28/19 08:59 08/29/19 09:35 Pantoprazole (Protonix) 40 mg EVERY 12 HOURS ORAL 08/29/19 09:00 09/28/19 08:59 08/29/19 09:35 Polyethylene Glycol (Miralax) 17 gm DAILY ORAL 08/29/19 09:00 09/28/19 08:59 08/29/19 09:35 Risperidone (RisperDAL) 0.5 mg BID ORAL 08/29/19 09:00 10/13/19 08:59 08/29/19 09:38 Sennosides (Senokot) 17.2 mg QHS ORAL 08/29/19 21:00 09/28/19 20:59 Sodium Chloride 1,000 ml @ 75 mls/hr [id number] IV 08/29/19 06:00 09/28/19 05:59 08/29/19 06:41 Sodium Phosphate (Fleet's Sodium Phosl Enema) 133 ml EVERY OTHER DAY PRN RECTAL Constipation 08/29/19 05:30 09/28/19 05:29 Tamsulosin HCl (Flomax) 0.4 mg QHS ORAL 08/29/19 21:00 09/28/19 20:59 Temazepam (Restoril) 15 mg BEDTIME PRN ORAL Insomnia 08/29/19 05:30 09/05/19 05:29 Vancomycin HCl (Vanco rx to dose) 1 ea DAILY PRN MISC Per rx protocol 08/29/19 01:30 09/28/19 01:29 Vancomycin/Sodium Chloride 275 ml @ 137.5 mls/ hr Q24H IVPB 08/29/19 15:00 09/03/19 14:59 Zinc Sulfate (Zinc Sulfate) 220 mg DAILY ORAL 08/29/19 09:00 11/27/19 08:59 08/29/19 09:35 Assessment/Plan Assessment/Plan: Abx: IV Vancomycin 08/27- Cefepime x1 08/28 Aztreonam 08/28- Assessment: Viral syndrome- likely COVID19 (resident at [facility] with large outbreak) PNA -CXR: Suspect faint hazy peripheral infiltrate in the inferior right upper lobe. Left basilar atelectasis Afebrile Leukopenia Mild AST elevation Dm2 anemia CKD HLD hx of GIB Anxiety schizoaffective disorder seizure disorder Dementia CVA w/ residual R side deficit BPH COPD HTN morbid obesity DNR/DNI status SNF resident ([facility]) Plan: -Continue empiric IV Vancomycin #2 and Aztreonam #1 for now -f/u cx -Monitor CBC/CMP, temperaturse -COVID19 testing and isolation -aspiration precautions Thank you for consulting [facility]. Will continue to follow along wiht you. Vandana Rucker M.D. Aug 29, 2019 13:23
[2019-08-29] MEDS: Vancomycin 1.5gm/NS Premix IVPB SCH (15:17)
[2019-08-29 16:00] VITALS: BP 121/59
--- NOTE | 2019-08-29 16:08 | Consultation ---
History of Present Illness General Date patient seen: Aug 29, 2019 Reason for Hospitalization: Upper Respiratory Illness Present Illness HPI This is a 68-year-old male with multiple medical comorbidities such as diabetes , anemia, chronic renal failure with cr 1.6 currently, dementia, CVA with residual right-sided deficit, BPH, COPD, hypertension, morbid obesity who is DNI /DNR i that presented from his longterm for evaluation of fever. Patient was admitted for further care and management. he complains of shortness of breath and occasional cough. He complains of generalized body aches. He has mildly disruptive when evaluated the bedside. He has a condom cath in place which is falling off and states that no one's like to touch it currently. Denies any nausea vomiting fever chills. Is able to move side to side by himself but does not do so when asked. Chills. Labs reviewed. Identified to have decubitus ulcers on admission. Allergies: Coded Allergies: ASPIRIN (Verified Allergy, Unknown, 11/22/17) PENICILLINS (Verified Allergy, Unknown, 11/22/17) SULFAMETHOXAZOLE (Verified Allergy, Unknown, 11/22/17) TRIMETHOPRIM (Verified Allergy, Unknown, 11/22/17) COVID-19 Screening Contact w/high risk pt: Yes Recent Travel to affected area: No Experienced COVID-19 symptoms?: Yes COVID-19 symptoms experienced: Fever (T>100.4F or >38C), Cough Medication History Scheduled Ascorbic Acid* (Vitamin C*), 500 MG ORAL DAILY, (Reported) Atorvastatin Calcium* (Lipitor*), 10 MG ORAL BEDTIME, (Reported) Brimonidine Tartrate* (Alphagan*), 1 DROP BOTH EYES TID, (Reported) Docusate Sodium* (Colace*), 100 MG ORAL DAILY, (Reported) Escitalopram Oxalate* (Lexapro*), 10 MG ORAL DAILY, (Reported) Gabapentin* (Gabapentin*), 400 MG ORAL THREE TIMES A DAY, (Reported) Hum Insulin Nph/Reg Insulin Hm (Humulin 70-30 Vial), 20 UNITS SUBQ EVERY EVENING , (Reported) Hydralazine Hcl* (Hydralazine Hcl*), 25 MG ORAL EVERY 6 HOURS, (Reported) Insulin Detemir (Levemir), 0 SUBQ BID, (Reported) Ipratropium/Albuterol Sulfate (DuoNeb 0.5-3(2.5)mg/3ml), 3 ML HHN Q4HR, ( Reported) Metoprolol Tartrate* (Metoprolol Tartrate*), 25 MG ORAL EVERY 12 HOURS, ( Reported) Multivitamins* (Multivitamins*), 1 TAB ORAL DAILY, (Reported) Pantoprazole* (Protonix*), 40 MG ORAL EVERY 12 HOURS, (Reported) Polyethylene Glycol 3350* (Polyethylene Glycol 3350*), 17 GM ORAL DAILY, ( Reported) Risperidone* (Risperdal*), 0.5 MG ORAL BID, (Reported) Sennosides (Senna), 17.2 MG PO QHS, (Reported) Tamsulosin HCl (Flomax), 0.4 MG ORAL QHS, (Reported) Zinc Sulfate (Zinc Sulfate*), 220 MG ORAL DAILY, (Reported) Scheduled PRN Acetaminophen* (Acetaminophen 325MG Tablet*), 650 MG ORAL Q4H PRN for Mild Pain/ Temp > 100.5, (Reported) Bisacodyl (Bisacodyl), 10 MG RC DAILY PRN for Constipation, (Reported) Glucagon (Glucagen), 1 MG IM for Hypoglycemia, (Reported) Magnesium Hydroxide* (Milk Of Magnesia*), 30 ML ORAL QHS PRN for CONSTIPATION, ( Reported) Na Phos,M-B/Na Phos,Di-Ba* (Fleet Enema*), 133 ML RECTAL EVERY OTHER DAY PRN for Constipation, (Reported) Ondansetron* (Zofran 4 Mg/2 Ml Vial*), 4 MG IM Q6H PRN for Nausea & Vomiting, ( Reported) Temazepam* (Restoril*), 15 MG ORAL BEDTIME PRN for Insomnia, (Reported) Discontinued Medications Amlodipine Besylate (Norvasc), 2.5 MG ORAL DAILY, (Reported) Discontinued Reason: MD discontinued med Divalproex Sodium* (Depakote Er*), 750 MG ORAL EVERY 12 HOURS, (Reported) Discontinued Reason: MD discontinued med Famotidine* (Pepcid 20mg tablet*), 20 MG ORAL ACBREAKFAST, (Reported) Discontinued Reason: MD discontinued med Fish Oil (Fish Oil 1,000 mg Capsule), 1,000 MG ORAL DAILY, (Reported) Discontinued Reason: MD discontinued med Linagliptin (Tradjenta), 5 MG PO DAILY, (Reported) Discontinued Reason: MD discontinued med Nateglinide (Starlix), 120 MG ORAL THREE TIMES A DAY, (Reported) Discontinued Reason: MD discontinued med Valsartan (Diovan), 80 MG ORAL DAILY, (Reported) Discontinued Reason: MD discontinued med Patient History Limited by: medical condition History Provided By: Patient, Medical Record, PMD Healthcare decision maker Resuscitation status Advanced Directive on File Past Medical/Surgical History Past Medical/Surgical History: (1) Diabetes mellitus (2) Morbid obesity (3) Dehydration (4) Anemia (5) Renal failure (ARF), acute on chronic (6) Electrolyte imbalance (7) Fever (8) Dementia (9) SOB (shortness of breath) (10) Acute encephalopathy (11) Decubitus skin ulcer (12) Hemoptysis (13) Leukocytosis (14) Hypoxia (15) Pneumonia (16) Suspected COVID-19 virus infection Review of Systems Review of Symptoms General ROS: no weight loss or fever Psychological ROS: no depression or mood changes, no memory loss Ophthalmic ROS: no visual changes or eye irritation ENT ROS: no nasal congestion, hearing loss, dizziness Allergy and Immunology ROS: no allergic symptoms or urticaria Hematological and Lymphatic ROS: no swollen glands, unusual bleeding or bruising Endocrine ROS: no polyuria, polydipsia, weight changes, temperature intolerance Respiratory ROS: no cough, shortness of breath, or wheezing Cardiovascular ROS: no chest pain or dyspnea on exertion Gastrointestinal ROS: denies abdominal pain, bright red blood in stool. Musculoskeletal ROS: no myalgias or arthralgias Neurological ROS: no TIA or stroke symptoms Dermatological ROS: no new or changing skin lesions, rashes or pruritis limited given mental status Physical Exam Physical Exam General appearance: alert, somewhat cooperative, no distress, appears stated age Head: Normocephalic, without obvious abnormality, atraumatic Eyes: conjunctivae/corneas clear. PERRL, EOM's intact. Fundi benign Throat: Lips, mucosa, and tongue normal. Teeth and gums normal Neck: supple, symmetrical, trachea midline, no adenopathy, thyroid: not enlarged, symmetric, no tenderness/mass/nodules, no carotid bruit and no JVD Lungs: clear to auscultation bilaterally Heart: regular rate and rhythm, S1, S2 normal, no murmur, click, rub or gallop Abdomen: soft, non-tender. Bowel sounds normal. No masses, no organomegaly Extremities: extremities normal, atraumatic, no cyanosis or edema Pulses: 2+ and symmetric Skin: see below Neurologic: Grossly normal Last 24 Hour Vital Signs Date Time Temp Pulse Resp B/P (MAP) Pulse Ox O2 Delivery O2 Flow Rate FiO2 08/29/19 12:00 62 08/29/19 11:39 107/53 08/29/19 11:21 97.7 77 20 107/53 (71) 98 08/29/19 09:36 95 156/75 08/29/19 09:00 Nasal Cannula 4.0 08/29/19 08:00 79 08/29/19 08:00 96.0 95 16 156/75 (102) 97 08/29/19 06:00 113/64 08/29/19 04:00 4.0 08/29/19 04:00 97.2 70 16 113/64 (80) 96 08/29/19 03:36 58 08/29/19 02:27 Nasal Cannula 4.0 08/29/19 02:00 97.2 73 16 108/60 (76) 98 08/29/19 01:44 75 08/29/19 01:20 98.0 85 22 124/69 95 Nasal Cannula 4.0 08/28/19 22:43 98.0 08/28/19 22:00 99.3 94 25 116/57 90 Room Air 08/28/19 22:00 94 25 Room Air 08/28/19 21:51 98.8 94 18 100/63 (75) 84 Room Air Intake and Output 08/28/19 08/29/19 19:00 07:00 Intake Total 330 ml Balance 330 ml Intake IV Total 330 ml Laboratory Tests Test 08/28/19 22:01 08/28/19 22:10 08/29/19 00:11 White Blood Count 4.7 K/UL (4.8-10.8) L Red Blood Count 4.10 M/UL (4.70-6.10) L Hemoglobin 11.2 G/DL (14.2-18.0) L Hematocrit 35.8 % (42.0-52.0) L Mean Corpuscular Volume 87 FL (80-99) Mean Corpuscular Hemoglobin 27.4 PG (27.0-31.0) Mean Corpuscular Hemoglobin Concent 31.3 G/DL (32.0-36.0) L Red Cell Distribution Width 15.1 % (11.6-14.8) H Platelet Count 270 K/UL (150-450) Mean Platelet Volume 6.5 FL (6.5-10.1) Neutrophils (%) (Auto) 58.2 % (45.0-75.0) Lymphocytes (%) (Auto) 27.5 % (20.0-45.0) Monocytes (%) (Auto) 12.0 % (1.0-10.0) H Eosinophils (%) (Auto) 1.7 % (0.0-3.0) Basophils (%) (Auto) 0.7 % (0.0-2.0) Prothrombin Time 10.4 SEC (9.30-11.50) Prothromb Time International Ratio 1.0 (0.9-1.1) Activated Partial Thromboplast Time 31 SEC (23-33) D-Dimer 0.62 mg/L FEU (0.00-0.49) H Sodium Level 136 MMOL/L (136-145) Potassium Level 4.6 MMOL/L (3.5-5.1) Chloride Level 101 MMOL/L (98-107) Carbon Dioxide Level 28 MMOL/L (21-32) Anion Gap 7 mmol/L (5-15) Blood Urea Nitrogen 18 mg/dL (7-18) Creatinine 1.6 MG/DL (0.55-1.30) H Estimat Glomerular Filtration Rate 43.1 mL/min (>60) Glucose Level 164 MG/DL (74-106) H Lactic Acid Level 0.80 mmol/L (0.4-2.0) Calcium Level 9.2 MG/DL (8.5-10.1) Magnesium Level 2.4 MG/DL (1.8-2.4) Ferritin 253 NG/ML (8-388) Total Bilirubin 0.4 MG/DL (0.2-1.0) Aspartate Amino Transf (AST/SGOT) 49 U/L (15-37) H Alanine Aminotransferase (ALT/SGPT) 36 U/L (12-78) Alkaline Phosphatase 116 U/L (46-116) Lactate Dehydrogenase 314 U/L (81-234) H Total Creatine Kinase 35 U/L (26-308) Troponin I 0.000 ng/mL (0.000-0.056) C-Reactive Protein, Quantitative 4.8 mg/dL (0.00-0.90) H Pro-B-Type Natriuretic Peptide 167 pg/mL (0-125) H Total Protein 8.5 G/DL (6.4-8.2) H Albumin 2.9 G/DL (3.4-5.0) L Globulin 5.6 g/dL Albumin/Globulin Ratio 0.5 (1.0-2.7) L Arterial Blood pH 7.448 (7.350-7.450) Arterial Blood Partial Pressure CO2 41.6 mmHg (35.0-45.0) Arterial Blood Partial Pressure O2 57.6 mmHg (75.0-100.0) L Arterial Blood HCO3 28.1 mmol/L (22.0-26.0) H Arterial Blood Oxygen Saturation 90.5 % (95-100) L Arterial Blood Base Excess 3.8 (-2-2) H Rob Test Positive Urine Color Pale yellow Urine Appearance Slightly cloudy Urine pH 6.5 (4.5-8.0) Urine Specific Carbon 1.010 (1.005-1.035) Urine Protein 3+ (NEGATIVE) H Urine Glucose (UA) 1+ (NEGATIVE) H Urine Ketones Negative (NEGATIVE) Urine Blood 2+ (NEGATIVE) H Urine Nitrite Positive (NEGATIVE) H Urine Bilirubin Negative (NEGATIVE) Urine Urobilinogen Normal MG/DL (0.0-1.0) Urine Leukocyte Esterase 3+ (NEGATIVE) H Urine RBC 2-4 /HPF (0 - 0) H Urine WBC Tntc /HPF (0 - 0) H Urine Squamous Epithelial Cells Few /LPF (NONE/OCC) Urine Bacteria Many /HPF (NONE) H Microbiology Date/Time Source Procedure Growth Status 08/28/19 22:01 Nasal Aspirate - Final Complete 08/28/19 22:01 Nasal Aspirate - Final Complete Height (Feet): 5 Height (Inches): 10.00 Weight (Pounds): 210 Medications Current Medications Medications (Trade) Dose Ordered Sig/Jayden Route PRN Reason Start Time Stop Time Status Last Admin Dose Admin Acetaminophen (Tylenol) 650 mg Q4H PRN ORAL MILD/TEMP 08/29/19 05:30 09/28/19 05:29 Albuterol Sulfate (Proventil MDI) 1 puff Q4HRT INH 08/29/19 07:00 11/27/19 06:59 08/29/19 15:09 Ascorbic Acid (Vitamin C) 500 mg DAILY ORAL 08/29/19 09:00 09/28/19 08:59 08/29/19 09:36 Atorvastatin Calcium (Lipitor) 10 mg BEDTIME ORAL 08/29/19 21:00 11/27/19 20:59 Aztreonam 1 gm/ Dextrose 55 ml @ 110 mls/hr Q8HR IVPB 08/29/19 06:00 09/05/19 05:59 08/29/19 14:03 Bisacodyl (Dulcolax) 10 mg DAILY PRN RECTAL Constipation 08/29/19 05:30 11/27/19 05:29 Brimonidine Tartrate (Alphagan) 1 drop TID BOTH EYES 08/29/19 09:00 11/27/19 08:59 08/29/19 12:38 Dextrose (Dextrose 50%) 25 ml Q30M PRN IV Hypoglycemia 08/29/19 13:15 11/27/19 13:14 Dextrose (Dextrose 50%) 50 ml Q30M PRN IV Hypoglycemia 08/29/19 13:15 11/27/19 13:14 Docusate Sodium (Colace) 100 mg DAILY ORAL 08/29/19 09:00 09/28/19 08:59 08/29/19 09:36 Escitalopram Oxalate (Lexapro) 10 mg DAILY ORAL 08/29/19 09:00 09/28/19 08:59 08/29/19 09:35 Gabapentin (Neurontin) 400 mg THREE TIMES A DAY ORAL 08/29/19 09:00 09/28/19 08:59 08/29/19 12:38 Hydralazine HCl (Apresoline) 25 mg EVERY 6 HOURS ORAL 08/29/19 06:00 11/27/19 05:59 Insulin Aspart (NovoLOG) BEFORE MEALS AND HS SUBQ 08/29/19 16:30 11/27/19 16:29 Ipratropium [place] (Atrovent Inh) 1 puffs Q4HRT INH 08/29/19 07:00 09/28/19 06:59 08/29/19 15:08 Magnesium Hydroxide (Mom) 30 ml QHS PRN ORAL CONSTIPATION 08/29/19 05:30 09/28/19 05:29 Metoprolol Tartrate (Lopressor) 25 mg EVERY 12 HOURS ORAL 08/29/19 09:00 11/27/19 08:59 08/29/19 09:36 Multivitamins (Multivitamins) 1 tab DAILY ORAL 08/29/19 09:00 09/28/19 08:59 08/29/19 09:35 Pantoprazole (Protonix) 40 mg EVERY 12 HOURS ORAL 08/29/19 09:00 09/28/19 08:59 08/29/19 09:35 Polyethylene Glycol (Miralax) 17 gm DAILY ORAL 08/29/19 09:00 09/28/19 08:59 08/29/19 09:35 Risperidone (RisperDAL) 0.5 mg BID ORAL 08/29/19 09:00 10/13/19 08:59 08/29/19 09:38 Sennosides (Senokot) 17.2 mg QHS ORAL 08/29/19 21:00 09/28/19 20:59 Sodium Chloride 1,000 ml @ 75 mls/hr [id number] IV 08/29/19 06:00 09/28/19 05:59 08/29/19 06:41 Sodium Phosphate (Fleet's Sodium Phosl Enema) 133 ml EVERY OTHER DAY PRN RECTAL Constipation 08/29/19 05:30 09/28/19 05:29 Tamsulosin HCl (Flomax) 0.4 mg QHS ORAL 08/29/19 21:00 09/28/19 20:59 Temazepam (Restoril) 15 mg BEDTIME PRN ORAL Insomnia 08/29/19 05:30 09/05/19 05:29 Vancomycin HCl (Vanco rx to dose) 1 ea DAILY PRN MISC Per rx protocol 08/29/19 01:30 09/28/19 01:29 Vancomycin/Sodium Chloride 275 ml @ 137.5 mls/ hr Q24H IVPB 08/29/19 15:00 09/03/19 14:59 08/29/19 15:17 Zinc Sulfate (Zinc Sulfate) 220 mg DAILY ORAL 08/29/19 09:00 11/27/19 08:59 08/29/19 09:35 Assessment/Plan Problem List: (1) Fever Assessment & Plan: 68-year-old male admitted for fevers. Currently afebrile hemodynamic stable. Labs noted as above. Chest x-ray with Body habitus limits evaluation. Inspiration is suboptimal. Patient is rotated to the right. There is suggestion of a focal hazy peripheral infiltrate in the inferior right upper lobe. There is some atelectasis at the left lung base. The heart size is upper limits of normal. Impression: Suspect faint hazy peripheral infiltrate in the inferior right upper lobe. possible COVID pending test fevers unlikely related to sacrum will follow with recs abx as per ID local wound care trend labs okay for diet as tolerated ICD Codes: R50.9 - Fever, unspecified SNOMED: 631428427 (2) Morbid obesity ICD Codes: E66.01 - Morbid (severe) obesity due to excess calories SNOMED: 911419522 (3) Decubitus skin ulcer Assessment & Plan: Patient presented on admission with multiple skin concerns. Patient identified to have a moderate sized deep tissue injury to the sacral region were on the low superior portion identified 3 open wound stage III linear wounds other with no signs of active infection. Granulation tissue in the wound bed no necrotic tissue no drainage no foul odor. Wash wounds daily with normal saline. Apply Thera honey followed by gauze and foam dressing. Foam dressing and skin protectant to the sacral region as well. Elevate heels with pillows. Air soft mattress. Turn every 2 hours. We will follow with recommendations thank you for let me participate in patient' s care ICD Codes: L89.90 - Pressure ulcer of unspecified site, unspecified stage SNOMED: 850517138 (4) Suspected COVID-19 virus infection Assessment & Plan: pending test ICD Codes: Z20.828 - Contact with and (suspected) exposure to other viral communicable diseases SNOMED: 585986063 [place] Aug 29, 2019 16:08
[2019-08-29] MEDS: Levemir Flexpen SUBQ SCH (18:25)
[2019-08-29 20:00] VITALS: BP 130/69
--- NOTE | 2019-08-29 20:30 | History and Physical Report ---
DATE OF ADMISSION: 08/28/2019 DATE AND TIME SEEN: On 08/29/2019 at 11 a.m. CONSULTANTS: 1. Adama Spangler MD. 2. Alex Marion MD. 3. Deborah Sosa MD. CHIEF COMPLAINT: Fever, hypoxia, suspect COVID. BRIEF HISTORY: This is a 68-year-old male from [facility], who presented with the above-mentioned diagnoses, admitted to telemetry for further care. Currently, O2 NC, calm, slightly confused in bed, slightly short of breath, no complaint. REVIEW OF SYSTEMS: The patient is slightly confused. PAST MEDICAL HISTORY: Includes diabetes, BPH, weakness, polyneuropathy, glaucoma, GERD, anxiety, seizure, CVA, and schizophrenia. PAST SURGICAL HISTORY: Unknown. ALLERGIES: Aspirin, penicillin, Bactrim. MEDICATIONS: Include atorvastatin, vancomycin, escitalopram, gabapentin, metoprolol, pantoprazole, Risperdal, zinc, insulin, aztreonam, hydralazine. SOCIAL HISTORY: No smoking. No alcohol. No intravenous drug abuse. FAMILY HISTORY: Noncontributory. PHYSICAL EXAMINATION: GENERAL: Calm in bed, oriented x1, in no acute distress, slightly confused. VITAL SIGNS: Temperature is 97 degrees, pulse 95, respirations 16, and blood pressure 156/75. HEENT: Normocephalic and atraumatic. NECK: Trachea midline. CARDIOVASCULAR: No peripheral edema. PULMONARY: O2 NC, slightly short of breath. ABDOMEN: No apparent wounds noted. EXTREMITIES: Show no cyanosis or clubbing. LABORATORY AND DIAGNOSTIC DATA: Labs at this time show white count 4.7, hemoglobin and hematocrit 11/35, platelets 270,000. BMP shows creatinine 1.6, glucose 164. Troponin 0.00. Albumin 2.9. Urinalysis, 3+ leukocyte esterase. ASSESSMENT: Hypoxia, fever, UTI, suspect COVID, diabetes, BPH, weakness, polyneuropathy, malnutrition, glaucoma, GERD, anxiety, seizures, CVA, and schizophrenia. PLAN: O2 and pulmonary treatment as needed. PT and dietary evaluation. CBC and BMP in the morning. Resume home medications. Antibiotic as ordered. Joe Salinas, D.O. DR: Jeannine JOB#: [id number] CC:
[2019-08-29] MEDS: Sennosides 8.6mg tab ORAL SCH (21:30)
[2019-08-29] MEDS: Tamsulosin 0.4mg cap ORAL SCH (21:31)
--- NOTE | 2019-08-29 23:14 | Consultation ---
DATE OF CONSULTATION: 08/29/2019 PULMONARY CONSULTATION CONSULTING PHYSICIAN: Adama Spangler MD. HISTORY OF PRESENT ILLNESS: This is a 68-year-old male with multiple medical problems including dementia, previous CVA, diabetes mellitus, chronic anemia, chronic renal failure, COPD, hypertension, obesity, who was also DNR. He was brought in from assisted care facility because of fever. The patient reports shortness of breath and cough. He also reports body aches and pains. The patient also reports that he has had a decubitus ulcer and has lower back pain. ALLERGIES: To aspirin, penicillin, Bactrim. SOCIAL HISTORY: He is an assisted care facility resident. He does not know any residents there who are positive for COVID-19. REVIEW OF SYSTEMS: Unreliable. PAST MEDICAL HISTORY: Notable as discussed above for benign prostatic hypertrophy, dementia, schizoaffective disorder, seizure disorder, anxiety, depression, previous GI bleed, diabetes mellitus, and anemia. PHYSICAL EXAMINATION: GENERAL: Reveals a 68-year-old male. VITAL SIGNS: Blood pressure is 107/50, heart rate is 74, respirations 20, he is afebrile, O2 saturation 94% on 4 L of oxygen. HEENT: Unremarkable. CHEST: Lungs with breath sounds bilaterally with normal heart sounds. ABDOMEN: Soft. EXTREMITIES: There is no edema. LABORATORY DATA: Lab testing shows hemoglobin of 11.2, white count 4.7, otherwise normal CBC and BMP. Creatinine 1.6. LDH is 314. Lactic acid 0.8. Troponin negative. C-reactive protein 4.8. ABG, pH 7.44, pCO2 of 41, pO2 of 56; this is on 4 L of oxygen. Coags and urinalysis negative; he does have pyuria. X-ray of chest was obtained, which shows hypoventilation with scattered atelectasis bilaterally. IMPRESSION: 1. Possible pneumonia. 2. Hypoxia. 3. Possible COVID-19 infection. 4. Multiple medical problems consisting of COPD, hyperlipidemia, psych disorder, and diabetes mellitus. DISCUSSION: Continue medications. Hold off on adding any further steroids. Continue pulmonary hygiene. Broad-spectrum antibiotics per ID. We will order oxygen. I will follow carefully. Adama Spangler M.D. DR: Delia JOB#: [id number] CC:
[2019-08-30] VITALS: BP 117/49
[2019-08-30] MEDS: HydrALAZINE 25mg tab ORAL SCH ×4 (00:33→17:44)
[2019-08-30] MEDS: Ipratropium Bromide Inhaler INH SCH ×5 (03:00→21:27)
[2019-08-30] MEDS: Albuterol 90mcg Inhaler 8gm INH SCH ×5 (03:00→21:28)
[2019-08-30 04:00] VITALS: BP 139/82
[2019-08-30] MEDS ORDERED: LORazepam 1mg tab ORAL PRN (04:30)
[2019-08-30] MEDS: Aztreonam Inj 1 GM in D5W 55 ML IVPB SCH ×3 (06:26→21:29)
[2019-08-30] MEDS: NovoLOG Insulin Flexpen SUBQ SCH ×7 (06:30→21:00)
[2019-08-30 08:00] VITALS: BP 134/80
[2019-08-30 09:12] LABS: BASOPHILS % (AUTO) 0.3 % (0.0-2.0); EOSINOPHILS % (AUTO) 0.1 % (0.0-3.0); HEMATOCRIT 29.7 % (42.0-52.0); HEMOGLOBIN 9.9 G/DL (14.2-18.0); LYMPHOCYTES % (AUTO) 9.7 % (20.0-45.0); MEAN CORPUSCULAR VOLUME 82 FL (80-99); MONOCYTES % (AUTO) 6.6 % (1.0-10.0); NEUTROPHILS % (AUTO) 83.3 % (45.0-75.0); PLATELET COUNT 249 K/UL (150-450); RED CELL DISTRIBUTION WIDTH 12.9 % (11.6-14.8); WHITE BLOOD COUNT 5.9 K/UL (4.8-10.8)
--- NOTE | 2019-08-30 09:16 | General Progress Note ---
Assessment/Plan Problem List: (1) Hypoxia ICD Codes: R09.02 - Hypoxemia SNOMED: 028116992, 738721544 (2) Fever ICD Codes: R50.9 - Fever, unspecified SNOMED: 755956649 (3) Diabetes mellitus ICD Codes: E11.9 - Type 2 diabetes mellitus without complications SNOMED: 66961972 (4) Morbid obesity ICD Codes: E66.01 - Morbid (severe) obesity due to excess calories SNOMED: 046233291 (5) Decubitus skin ulcer ICD Codes: L89.90 - Pressure ulcer of unspecified site, unspecified stage SNOMED: 545870234 (6) SOB (shortness of breath) ICD Codes: R06.02 - Shortness of breath SNOMED: 161208681 (7) Suspected COVID-19 virus infection ICD Codes: Z20.828 - Contact with and (suspected) exposure to other viral communicable diseases SNOMED: 063511920 Status: unchanged Assessment/Plan: pt diet o2 pulm tx prn abx per id aru eval Subjective Constitutional: Reports: weakness Allergies: Coded Allergies: ASPIRIN (Verified Allergy, Unknown, 11/22/17) PENICILLINS (Verified Allergy, Unknown, 11/22/17) SULFAMETHOXAZOLE (Verified Allergy, Unknown, 11/22/17) TRIMETHOPRIM (Verified Allergy, Unknown, 11/22/17) All Systems: reviewed and negative except above Subjective o2nc sleepy Objective Last 24 Hour Vital Signs Date Time Temp Pulse Resp B/P (MAP) Pulse Ox O2 Delivery O2 Flow Rate FiO2 08/30/19 06:26 146/82 08/30/19 04:00 97.9 65 20 139/82 (101) 95 08/30/19 04:00 55 08/30/19 00:33 117/49 08/30/19 00:00 97.5 57 19 117/49 (71) 97 08/30/19 00:00 57 08/29/19 21:32 63 130/69 08/29/19 21:00 Nasal Cannula 2.0 08/29/19 20:00 97.9 63 19 130/69 (89) 95 08/29/19 20:00 63 08/29/19 18:18 121/59 08/29/19 16:00 97.9 58 20 121/59 (79) 94 08/29/19 16:00 58 08/29/19 12:00 62 08/29/19 11:39 107/53 08/29/19 11:21 97.7 77 20 107/53 (71) 98 08/29/19 09:36 95 156/75 Intake and Output 08/29/19 08/30/19 19:00 07:00 Intake Total 1650.0 ml Output Total 500 ml Balance 1150.0 ml Intake Oral 720 ml IV Total 930.0 ml Output Urine Total 500 ml # Voids 2 4 # Bowel Movements 1 Laboratory Tests 08/30/19 08:40: White Blood Count [Pending], Red Blood Count [Pending], Hemoglobin [Pending], Hematocrit [Pending], Mean Corpuscular Volume [Pending], Mean Corpuscular Hemoglobin [Pending], Mean Corpuscular Hemoglobin Concent [Pending], Red Cell Distribution Width [Pending], Platelet Count [Pending], Mean Platelet Volume [ Pending], Neutrophils (%) (Auto) [Pending], Lymphocytes (%) (Auto) [Pending], Monocytes (%) (Auto) [Pending], Eosinophils (%) (Auto) [Pending], Basophils (%) (Auto) [Pending], Erythrocyte Sedimentation Rate [Pending], Prothrombin Time [ Pending], Prothromb Time International Ratio [Pending], Activated Partial Thromboplast Time [Pending], Sodium Level [Pending], Potassium Level [Pending], Chloride Level [Pending], Carbon Dioxide Level [Pending], Blood Urea Nitrogen [ Pending], Creatinine [Pending], Estimat Glomerular Filtration Rate [Pending], Glucose Level [Pending], Calcium Level [Pending], C-Reactive Protein, Quantitative [Pending] Height (Feet): 5 Height (Inches): 10.00 Weight (Pounds): 210 General Appearance: lethargic EENT: normal ENT inspection Neck: normal alignment Cardiovascular: normal rate, regular rhythm Respiratory/Chest: no respiratory distress, no accessory muscle use Extremities: normal inspection Skin: normal pigmentation Joe Salinas DO August 30, 2019 09:16
[2019-08-30 09:36] LABS: ANION GAP 12 mmol/L (5-15); BLOOD UREA NITROGEN 30 mg/dL (7-18); CALCIUM 8.4 MG/DL (8.5-10.1); CARBON DIOXIDE 23 MMOL/L (21-32); CHLORIDE 103 MMOL/L (98-107); CREATININE 1.6 MG/DL (0.55-1.30); POTASSIUM 4.5 MMOL/L (3.5-5.1); SODIUM 138 MMOL/L (136-145)
[2019-08-30] MEDS: Docusate 100mg cap ORAL SCH (09:36)
[2019-08-30] MEDS: Zinc Sulfate 220mg cap ORAL SCH (09:36)
[2019-08-30] MEDS: Miralax 17gm pkt ORAL SCH (09:37)
[2019-08-30] MEDS: Ascorbic Acid 500mg tab ORAL SCH (09:37)
[2019-08-30] MEDS: Brimonidine 0.2% Opth Sol BOTH EYES SCH ×3 (09:38→17:43)
[2019-08-30 09:40] LABS: INR 0.9 (0.9-1.1)
[2019-08-30] MEDS: Levemir Flexpen SUBQ SCH ×2 (09:40→17:45)
--- NOTE | 2019-08-30 11:21 | Surgery Progress Note ---
Surgery Progress Note Subjective Additional Comments a bit roudy today agitated labs okay exam stable Objective Last 24 Hour Vital Signs Date Time Temp Pulse Resp B/P (MAP) Pulse Ox O2 Delivery O2 Flow Rate FiO2 08/30/19 09:37 67 134/80 08/30/19 09:00 Nasal Cannula 2.0 08/30/19 08:00 98.8 67 20 134/80 (98) 96 08/30/19 08:00 53 08/30/19 06:26 146/82 08/30/19 04:00 97.9 65 20 139/82 (101) 95 08/30/19 04:00 55 08/30/19 00:33 117/49 08/30/19 00:00 97.5 57 19 117/49 (71) 97 08/30/19 00:00 57 08/29/19 21:32 63 130/69 08/29/19 21:00 Nasal Cannula 2.0 08/29/19 20:00 97.9 63 19 130/69 (89) 95 08/29/19 20:00 63 08/29/19 18:18 121/59 08/29/19 16:00 97.9 58 20 121/59 (79) 94 08/29/19 16:00 58 08/29/19 12:00 62 08/29/19 11:39 107/53 08/29/19 11:21 97.7 77 20 107/53 (71) 98 I&O Intake and Output 08/29/19 08/30/19 19:00 07:00 Intake Total 1650.0 ml Output Total 500 ml Balance 1150.0 ml Intake Oral 720 ml IV Total 930.0 ml Output Urine Total 500 ml # Voids 2 4 # Bowel Movements 1 Dressing: other Wound: other Drains: other Cardiovascular: RSR Respiratory: decreased breath sounds Abdomen: present bowel sounds Extremities: no cyanosis Laboratory Tests Test 08/30/19 08:40 White Blood Count 5.9 K/UL (4.8-10.8) Red Blood Count 3.60 M/UL (4.70-6.10) L Hemoglobin 9.9 G/DL (14.2-18.0) L Hematocrit 29.7 % (42.0-52.0) L Mean Corpuscular Volume 82 FL (80-99) Mean Corpuscular Hemoglobin 27.4 PG (27.0-31.0) Mean Corpuscular Hemoglobin Concent 33.3 G/DL (32.0-36.0) Red Cell Distribution Width 12.9 % (11.6-14.8) Platelet Count 249 K/UL (150-450) Mean Platelet Volume 5.7 FL (6.5-10.1) L Neutrophils (%) (Auto) 83.3 % (45.0-75.0) H Lymphocytes (%) (Auto) 9.7 % (20.0-45.0) L Monocytes (%) (Auto) 6.6 % (1.0-10.0) Eosinophils (%) (Auto) 0.1 % (0.0-3.0) Basophils (%) (Auto) 0.3 % (0.0-2.0) Erythrocyte Sedimentation Rate 110 MM/HR (0-20) H Prothrombin Time 10.0 SEC (9.30-11.50) Prothromb Time International Ratio 0.9 (0.9-1.1) Activated Partial Thromboplast Time 28 SEC (23-33) Sodium Level 138 MMOL/L (136-145) Potassium Level 4.5 MMOL/L (3.5-5.1) Chloride Level 103 MMOL/L (98-107) Carbon Dioxide Level 23 MMOL/L (21-32) Anion Gap 12 mmol/L (5-15) Blood Urea Nitrogen 30 mg/dL (7-18) H Creatinine 1.6 MG/DL (0.55-1.30) H Estimat Glomerular Filtration Rate 43.1 mL/min (>60) Glucose Level 331 MG/DL (74-106) #H Calcium Level 8.4 MG/DL (8.5-10.1) L C-Reactive Protein, Quantitative 2.6 mg/dL (0.00-0.90) H Plan Problems: (1) Fever Assessment & Plan: 68-year-old male admitted for fevers. Currently afebrile hemodynamic stable. Labs noted as above. Chest x-ray with Body habitus limits evaluation. Inspiration is suboptimal. Patient is rotated to the right. There is suggestion of a focal hazy peripheral infiltrate in the inferior right upper lobe. There is some atelectasis at the left lung base. The heart size is upper limits of normal. Impression: Suspect faint hazy peripheral infiltrate in the inferior right upper lobe. possible COVID pending test fevers unlikely related to sacrum will follow with recs abx as per ID local wound care trend labs okay for diet as tolerated (2) Morbid obesity (3) Decubitus skin ulcer Assessment & Plan: Patient presented on admission with multiple skin concerns. Patient identified to have a moderate sized deep tissue injury to the sacral region were on the low superior portion identified 3 open wound stage III linear wounds other with no signs of active infection. Granulation tissue in the wound bed no necrotic tissue no drainage no foul odor. Wash wounds daily with normal saline. Apply Thera honey followed by gauze and foam dressing. Foam dressing and skin protectant to the sacral region as well. Elevate heels with pillows. Air soft mattress. Turn every 2 hours. We will follow with recommendations thank you for let me participate in patient' s care DAILY ESTIMATED NEEDS: Needs based on Obese, wound DM/ 78kg abw 20-25 kcals/kg 9097-4114 total kcals 1.25-2 g protein/kg 98-156 g total protein 25-30 mL/kg 8847-1096 total fluid mLs NUTRITION DIAGNOSIS: 1) Increased protein intake needs R/T wound healing as evidenced by admitted w/ 3 open wound stage III linear wounds near sacral region. 2) Altered nutrition related lab values R/T diabetes as evidenced by POC glu (421, 364), 1+ U glu. CURRENT DIET:CCHO MED, mech soft chopped PO DIET RECOMMENDATIONS: CCHO LOW w/ DOUBLE PROTEINS (texture per REED MAN) ADDITIONAL RECOMMENDATIONS: 1) Recalibrated bed scale wt for accurate CBW 2) Wound healing: Continue MVI + VIT C+ [id number] MARZENA BID 3) Monitor BGs closely for hypoglycemia and hyperglycemia : on long acting + short acting insulin 4) Consider REED MAN eval for appropriate texture (4) Suspected COVID-19 virus infection Assessment & Plan: pending test Good Love August 30, 2019 11:21
--- NOTE | 2019-08-30 11:24 | Pulmonology Progress Note ---
Assessment/Plan Assessment/Plan IMPRESSION: 1. Possible pneumonia. 2. Hypoxia. 3. Possible COVID-19 infection. 4. Multiple medical problems consisting of COPD, hyperlipidemia, psych disorder, and diabetes mellitus. DISCUSSION: Continue medications. Hold off on adding any further steroids. Continue pulmonary hygiene. Broad-spectrum antibiotics per ID. I will order oxygen. I will follow carefully. Adama Spangler M.D. Subjective Interval Events: None new Constitutional: Reports: no symptoms; Denies: fever, chills, fatigue, anorexia , drenching sweats, other HEENT: Repors: no symptoms; Denies: visual change, discharge, earache, hearing change, coryza, congestion, post-nasal drip, dysphagia, other Respiratory: Reports: dry cough, shortness of breath Cardiovascular: Reports: no symptoms Gastrointestinal/Abdominal: Reports: no symptoms Genitourinary: Reports: no symptoms Allergies: Coded Allergies: ASPIRIN (Verified Allergy, Unknown, 11/22/17) PENICILLINS (Verified Allergy, Unknown, 11/22/17) SULFAMETHOXAZOLE (Verified Allergy, Unknown, 11/22/17) TRIMETHOPRIM (Verified Allergy, Unknown, 11/22/17) All Systems: reviewed and negative except above Objective Last 24 Hour Vital Signs Date Time Temp Pulse Resp B/P (MAP) Pulse Ox O2 Delivery O2 Flow Rate FiO2 08/30/19 09:37 67 134/80 08/30/19 09:00 Nasal Cannula 2.0 08/30/19 08:00 98.8 67 20 134/80 (98) 96 08/30/19 08:00 53 08/30/19 06:26 146/82 08/30/19 04:00 97.9 65 20 139/82 (101) 95 08/30/19 04:00 55 08/30/19 00:33 117/49 08/30/19 00:00 97.5 57 19 117/49 (71) 97 08/30/19 00:00 57 08/29/19 21:32 63 130/69 08/29/19 21:00 Nasal Cannula 2.0 08/29/19 20:00 97.9 63 19 130/69 (89) 95 08/29/19 20:00 63 08/29/19 18:18 121/59 08/29/19 16:00 97.9 58 20 121/59 (79) 94 08/29/19 16:00 58 08/29/19 12:00 62 08/29/19 11:39 107/53 Intake and Output 08/29/19 08/30/19 19:00 07:00 Intake Total 1650.0 ml Output Total 500 ml Balance 1150.0 ml Intake Oral 720 ml IV Total 930.0 ml Output Urine Total 500 ml # Voids 2 4 # Bowel Movements 1 General Appearance: no acute distress HEENT: normocephalic Respiratory/Chest: chest wall non-tender, lungs clear Cardiovascular: normal peripheral pulses Abdomen: normal bowel sounds Extremities: no cyanosis Microbiology Date/Time Source Procedure Growth Status 08/28/19 22:01 Blood Blood Culture - Preliminary NO GROWTH AFTER 24 HOURS Resulted 08/28/19 21:45 Blood Blood Culture - Preliminary NO GROWTH AFTER 24 HOURS Resulted 08/29/19 21:00 Sputum Gram Stain - Final Resulted 08/29/19 21:00 Sputum Sputum Culture Pending Resulted 08/28/19 22:01 Nasal Aspirate - Final Complete 08/28/19 22:01 Nasal Aspirate - Final Complete 08/29/19 00:11 Urine,Clean Catch Urine Culture - Preliminary Staphylococcus Aureus Resulted Laboratory Tests 08/30/19 08:40: White Blood Count 5.9, Red Blood Count 3.60L, Hemoglobin 9.9L, Hematocrit 29.7L , Mean Corpuscular Volume 82, Mean Corpuscular Hemoglobin 27.4, Mean Corpuscular Hemoglobin Concent 33.3, Red Cell Distribution Width 12.9, Platelet Count 249, Mean Platelet Volume 5.7L, Neutrophils (%) (Auto) 83.3H, Lymphocytes (%) (Auto) 9.7L, Monocytes (%) (Auto) 6.6, Eosinophils (%) (Auto) 0.1, Basophils (%) (Auto) 0.3, Erythrocyte Sedimentation Rate 110H, Prothrombin Time 10.0, Prothromb Time International Ratio 0.9, Activated Partial Thromboplast Time 28, Sodium Level 138, Potassium Level 4.5, Chloride Level 103, Carbon Dioxide Level 23, Anion Gap 12, Blood Urea Nitrogen 30H, Creatinine 1.6H, Estimat Glomerular Filtration Rate 43.1, Glucose Level 331#H, Calcium Level 8.4L , C-Reactive Protein, Quantitative 2.6H Current Medications Medications (Trade) Dose Ordered Sig/Jayden Route PRN Reason Start Time Stop Time Status Last Admin Dose Admin Acetaminophen (Tylenol) 650 mg Q4H PRN ORAL MILD/TEMP 08/29/19 05:30 09/28/19 05:29 Albuterol Sulfate (Proventil MDI) 1 puff Q4HRT INH 08/29/19 07:00 11/27/19 06:59 08/30/19 06:28 Ascorbic Acid (Vitamin C) 500 mg DAILY ORAL 08/29/19 09:00 09/28/19 08:59 08/30/19 09:37 Atorvastatin Calcium (Lipitor) 10 mg BEDTIME ORAL 08/29/19 21:00 11/27/19 20:59 08/29/19 21:31 Aztreonam 1 gm/ Dextrose 55 ml @ 110 mls/hr Q8HR IVPB 08/29/19 06:00 09/05/19 05:59 08/30/19 06:26 Bisacodyl (Dulcolax) 10 mg DAILY PRN RECTAL Constipation 08/29/19 05:30 11/27/19 05:29 Brimonidine Tartrate (Alphagan) 1 drop TID BOTH EYES 08/29/19 09:00 11/27/19 08:59 08/30/19 09:38 Dextrose (Dextrose 50%) 25 ml Q30M PRN IV Hypoglycemia 08/29/19 18:00 11/27/19 17:59 Dextrose (Dextrose 50%) 50 ml Q30M PRN IV Hypoglycemia 08/29/19 18:00 11/27/19 17:59 Docusate Sodium (Colace) 100 mg DAILY ORAL 08/29/19 09:00 09/28/19 08:59 08/30/19 09:36 Escitalopram Oxalate (Lexapro) 10 mg DAILY ORAL 08/29/19 09:00 09/28/19 08:59 08/30/19 09:37 Gabapentin (Neurontin) 400 mg THREE TIMES A DAY ORAL 08/29/19 09:00 09/28/19 08:59 08/30/19 09:36 Hydralazine HCl (Apresoline) 25 mg EVERY 6 HOURS ORAL 08/29/19 06:00 11/27/19 05:59 08/30/19 06:26 Insulin Aspart (NovoLOG) BEFORE MEALS AND HS SUBQ 08/29/19 16:30 11/27/19 16:29 08/30/19 06:30 Insulin Aspart (NovoLOG) 20 units NOVOTIAC SUBQ 08/29/19 18:00 11/27/19 17:59 08/30/19 06:30 Insulin Detemir (Levemir) 40 units BID SUBQ 08/29/19 18:00 11/27/19 17:59 08/30/19 09:40 Ipratropium [place] (Atrovent Inh) 1 puffs Q4HRT INH 08/29/19 07:00 09/28/19 06:59 08/30/19 06:28 Lorazepam (Ativan) 1 mg Q6H PRN ORAL For Anxiety 08/30/19 04:30 09/06/19 04:29 Magnesium Hydroxide (Mom) 30 ml QHS PRN ORAL CONSTIPATION 08/29/19 05:30 09/28/19 05:29 Metoprolol Tartrate (Lopressor) 25 mg EVERY 12 HOURS ORAL 08/29/19 09:00 11/27/19 08:59 08/30/19 09:37 Multivitamins (Multivitamins) 1 tab DAILY ORAL 08/29/19 09:00 09/28/19 08:59 08/30/19 09:37 Olanzapine (ZyPREXA) 5 mg BID ORAL 08/30/19 09:00 10/14/19 08:59 08/30/19 09:36 Pantoprazole (Protonix) 40 mg EVERY 12 HOURS ORAL 08/29/19 09:00 09/28/19 08:59 08/30/19 09:36 Polyethylene Glycol (Miralax) 17 gm DAILY ORAL 08/29/19 09:00 09/28/19 08:59 08/30/19 09:37 Sennosides (Senokot) 17.2 mg QHS ORAL 08/29/19 21:00 09/28/19 20:59 08/29/19 21:30 Sodium Chloride 1,000 ml @ 75 mls/hr [id number] IV 08/29/19 06:00 09/28/19 05:59 08/30/19 09:38 Sodium Phosphate (Fleet's Sodium Phosl Enema) 133 ml EVERY OTHER DAY PRN RECTAL Constipation 08/29/19 05:30 09/28/19 05:29 Tamsulosin HCl (Flomax) 0.4 mg QHS ORAL 08/29/19 21:00 09/28/19 20:59 08/29/19 21:31 Temazepam (Restoril) 15 mg BEDTIME PRN ORAL Insomnia 08/29/19 05:30 09/05/19 05:29 Vancomycin HCl (Vanco rx to dose) 1 ea DAILY PRN MISC Per rx protocol 08/29/19 01:30 09/28/19 01:29 Vancomycin/Sodium Chloride 275 ml @ 137.5 mls/ hr Q24H IVPB 08/29/19 15:00 09/03/19 14:59 08/29/19 15:17 Zinc Sulfate (Zinc Sulfate) 220 mg DAILY ORAL 08/29/19 09:00 11/27/19 08:59 08/30/19 09:36 Adama Spangler MD August 30, 2019 11:24
--- NOTE | 2019-08-30 11:38 | Infectious Diseases Prog Note ---
Assessment/Plan Assessment/Plan Assessment: Viral syndrome- likely COVID19 (resident at [place] with large outbreak) PNA -CXR: Suspect faint hazy peripheral infiltrate in the inferior right upper lobe. Left basilar atelectasis sp cx p Afebrile Leukopenia Mild AST elevation UTI -u/a wbc tntc; ucx >100k S.ureus Dm2 anemia CKD HLD hx of GIB Anxiety schizoaffective disorder seizure disorder Dementia CVA w/ residual R side deficit BPH COPD HTN morbid obesity DNR/DNI status SNF resident ([facility]) Plan: -Continue empiric IV Vancomycin #3 and Aztreonam #2 for now -08/28 SP Cefepime x1 -f/u cx -Monitor CBC/CMP, temperaturse -COVID19 testing and isolation -aspiration precautions Thank you for consulting [facility]. Will continue to follow along wiht you. Subjective Allergies: Coded Allergies: ASPIRIN (Verified Allergy, Unknown, 11/22/17) PENICILLINS (Verified Allergy, Unknown, 11/22/17) SULFAMETHOXAZOLE (Verified Allergy, Unknown, 11/22/17) TRIMETHOPRIM (Verified Allergy, Unknown, 11/22/17) Subjective afebrile at 2l NC Objective Vital Signs Last 24 Hour Vital Signs Date Time Temp Pulse Resp B/P (MAP) Pulse Ox O2 Delivery O2 Flow Rate FiO2 08/30/19 09:37 67 134/80 08/30/19 09:00 Nasal Cannula 2.0 08/30/19 08:00 98.8 67 20 134/80 (98) 96 08/30/19 08:00 53 08/30/19 06:26 146/82 08/30/19 04:00 97.9 65 20 139/82 (101) 95 08/30/19 04:00 55 08/30/19 00:33 117/49 08/30/19 00:00 97.5 57 19 117/49 (71) 97 08/30/19 00:00 57 08/29/19 21:32 63 130/69 08/29/19 21:00 Nasal Cannula 2.0 08/29/19 20:00 97.9 63 19 130/69 (89) 95 08/29/19 20:00 63 08/29/19 18:18 121/59 08/29/19 16:00 97.9 58 20 121/59 (79) 94 08/29/19 16:00 58 08/29/19 12:00 62 08/29/19 11:39 107/53 Height (Feet): 5 Height (Inches): 10.00 Weight (Pounds): 210 Microbiology Date/Time Source Procedure Growth Status 08/28/19 22:01 Blood Blood Culture - Preliminary NO GROWTH AFTER 24 HOURS Resulted 08/28/19 21:45 Blood Blood Culture - Preliminary NO GROWTH AFTER 24 HOURS Resulted 08/29/19 21:00 Sputum Gram Stain - Final Resulted 08/29/19 21:00 Sputum Sputum Culture Pending Resulted 08/28/19 22:01 Nasal Aspirate - Final Complete 08/28/19 22:01 Nasal Aspirate - Final Complete 08/29/19 00:11 Urine,Clean Catch Urine Culture - Preliminary Staphylococcus Aureus Resulted Laboratory Tests Test 08/30/19 08:40 White Blood Count 5.9 K/UL (4.8-10.8) Red Blood Count 3.60 M/UL (4.70-6.10) L Hemoglobin 9.9 G/DL (14.2-18.0) L Hematocrit 29.7 % (42.0-52.0) L Mean Corpuscular Volume 82 FL (80-99) Mean Corpuscular Hemoglobin 27.4 PG (27.0-31.0) Mean Corpuscular Hemoglobin Concent 33.3 G/DL (32.0-36.0) Red Cell Distribution Width 12.9 % (11.6-14.8) Platelet Count 249 K/UL (150-450) Mean Platelet Volume 5.7 FL (6.5-10.1) L Neutrophils (%) (Auto) 83.3 % (45.0-75.0) H Lymphocytes (%) (Auto) 9.7 % (20.0-45.0) L Monocytes (%) (Auto) 6.6 % (1.0-10.0) Eosinophils (%) (Auto) 0.1 % (0.0-3.0) Basophils (%) (Auto) 0.3 % (0.0-2.0) Erythrocyte Sedimentation Rate 110 MM/HR (0-20) H Prothrombin Time 10.0 SEC (9.30-11.50) Prothromb Time International Ratio 0.9 (0.9-1.1) Activated Partial Thromboplast Time 28 SEC (23-33) Sodium Level 138 MMOL/L (136-145) Potassium Level 4.5 MMOL/L (3.5-5.1) Chloride Level 103 MMOL/L (98-107) Carbon Dioxide Level 23 MMOL/L (21-32) Anion Gap 12 mmol/L (5-15) Blood Urea Nitrogen 30 mg/dL (7-18) H Creatinine 1.6 MG/DL (0.55-1.30) H Estimat Glomerular Filtration Rate 43.1 mL/min (>60) Glucose Level 331 MG/DL (74-106) #H Calcium Level 8.4 MG/DL (8.5-10.1) L C-Reactive Protein, Quantitative 2.6 mg/dL (0.00-0.90) H Current Medications Medications (Trade) Dose Ordered Sig/Jayden Route PRN Reason Start Time Stop Time Status Last Admin Dose Admin Acetaminophen (Tylenol) 650 mg Q4H PRN ORAL MILD/TEMP 08/29/19 05:30 09/28/19 05:29 Albuterol Sulfate (Proventil MDI) 1 puff Q4HRT INH 08/29/19 07:00 11/27/19 06:59 08/30/19 06:28 Ascorbic Acid (Vitamin C) 500 mg DAILY ORAL 08/29/19 09:00 09/28/19 08:59 08/30/19 09:37 Atorvastatin Calcium (Lipitor) 10 mg BEDTIME ORAL 08/29/19 21:00 11/27/19 20:59 08/29/19 21:31 Aztreonam 1 gm/ Dextrose 55 ml @ 110 mls/hr Q8HR IVPB 08/29/19 06:00 09/05/19 05:59 08/30/19 06:26 Bisacodyl (Dulcolax) 10 mg DAILY PRN RECTAL Constipation 08/29/19 05:30 11/27/19 05:29 Brimonidine Tartrate (Alphagan) 1 drop TID BOTH EYES 08/29/19 09:00 11/27/19 08:59 08/30/19 09:38 Dextrose (Dextrose 50%) 25 ml Q30M PRN IV Hypoglycemia 08/29/19 18:00 11/27/19 17:59 Dextrose (Dextrose 50%) 50 ml Q30M PRN IV Hypoglycemia 08/29/19 18:00 11/27/19 17:59 Docusate Sodium (Colace) 100 mg DAILY ORAL 08/29/19 09:00 09/28/19 08:59 08/30/19 09:36 Escitalopram Oxalate (Lexapro) 10 mg DAILY ORAL 08/29/19 09:00 09/28/19 08:59 08/30/19 09:37 Gabapentin (Neurontin) 400 mg THREE TIMES A DAY ORAL 08/29/19 09:00 09/28/19 08:59 08/30/19 09:36 Hydralazine HCl (Apresoline) 25 mg EVERY 6 HOURS ORAL 08/29/19 06:00 11/27/19 05:59 08/30/19 06:26 Insulin Aspart (NovoLOG) BEFORE MEALS AND HS SUBQ 08/29/19 16:30 11/27/19 16:29 08/30/19 06:30 Insulin Aspart (NovoLOG) 20 units NOVOTIAC SUBQ 08/29/19 18:00 11/27/19 17:59 08/30/19 06:30 Insulin Detemir (Levemir) 40 units BID SUBQ 08/29/19 18:00 11/27/19 17:59 08/30/19 09:40 Ipratropium [place] (Atrovent Inh) 1 puffs Q4HRT INH 08/29/19 07:00 09/28/19 06:59 08/30/19 06:28 Lorazepam (Ativan) 1 mg Q6H PRN ORAL For Anxiety 08/30/19 04:30 09/06/19 04:29 Magnesium Hydroxide (Mom) 30 ml QHS PRN ORAL CONSTIPATION 08/29/19 05:30 09/28/19 05:29 Metoprolol Tartrate (Lopressor) 25 mg EVERY 12 HOURS ORAL 08/29/19 09:00 11/27/19 08:59 08/30/19 09:37 Multivitamins (Multivitamins) 1 tab DAILY ORAL 08/29/19 09:00 09/28/19 08:59 08/30/19 09:37 Olanzapine (ZyPREXA) 5 mg BID ORAL 08/30/19 09:00 10/14/19 08:59 08/30/19 09:36 Pantoprazole (Protonix) 40 mg EVERY 12 HOURS ORAL 08/29/19 09:00 09/28/19 08:59 08/30/19 09:36 Polyethylene Glycol (Miralax) 17 gm DAILY ORAL 08/29/19 09:00 09/28/19 08:59 08/30/19 09:37 Sennosides (Senokot) 17.2 mg QHS ORAL 08/29/19 21:00 09/28/19 20:59 08/29/19 21:30 Sodium Chloride 1,000 ml @ 75 mls/hr [id number] IV 08/29/19 06:00 09/28/19 05:59 08/30/19 09:38 Sodium Phosphate (Fleet's Sodium Phosl Enema) 133 ml EVERY OTHER DAY PRN RECTAL Constipation 08/29/19 05:30 09/28/19 05:29 Tamsulosin HCl (Flomax) 0.4 mg QHS ORAL 08/29/19 21:00 09/28/19 20:59 08/29/19 21:31 Temazepam (Restoril) 15 mg BEDTIME PRN ORAL Insomnia 08/29/19 05:30 09/05/19 05:29 Vancomycin HCl (Vanco rx to dose) 1 ea DAILY PRN MISC Per rx protocol 08/29/19 01:30 09/28/19 01:29 Vancomycin/Sodium Chloride 275 ml @ 137.5 mls/ hr Q24H IVPB 08/29/19 15:00 09/03/19 14:59 08/29/19 15:17 Zinc Sulfate (Zinc Sulfate) 220 mg DAILY ORAL 08/29/19 09:00 11/27/19 08:59 08/30/19 09:36 Vandana Rucker M.D. August 30, 2019 11:38
[2019-08-30 11:47] VITALS: BP 140/78
--- NOTE | 2019-08-30 12:44 | General Progress Note ---
Assessment/Plan Problem List: (1) Pneumonia ICD Codes: J18.9 - Pneumonia, unspecified organism SNOMED: 657142160, 923189264 (2) Suspected COVID-19 virus infection ICD Codes: Z20.828 - Contact with and (suspected) exposure to other viral communicable diseases SNOMED: 871442922 (3) Diabetes mellitus ICD Codes: E11.9 - Type 2 diabetes mellitus without complications SNOMED: 71284151 Status: unchanged Assessment/Plan: continue current diabetic regimen continue Novolog sliding scale ac / hs Subjective Allergies: Coded Allergies: ASPIRIN (Verified Allergy, Unknown, 11/22/17) PENICILLINS (Verified Allergy, Unknown, 11/22/17) SULFAMETHOXAZOLE (Verified Allergy, Unknown, 11/22/17) TRIMETHOPRIM (Verified Allergy, Unknown, 11/22/17) Subjective glucose values improved Objective Last 24 Hour Vital Signs Date Time Temp Pulse Resp B/P (MAP) Pulse Ox O2 Delivery O2 Flow Rate FiO2 08/30/19 12:06 140/78 08/30/19 11:47 98.0 73 20 140/78 (98) 97 08/30/19 09:37 67 134/80 08/30/19 09:00 Nasal Cannula 2.0 08/30/19 08:00 98.8 67 20 134/80 (98) 96 08/30/19 08:00 53 08/30/19 06:26 146/82 08/30/19 04:00 97.9 65 20 139/82 (101) 95 08/30/19 04:00 55 08/30/19 00:33 117/49 08/30/19 00:00 97.5 57 19 117/49 (71) 97 08/30/19 00:00 57 08/29/19 21:32 63 130/69 08/29/19 21:00 Nasal Cannula 2.0 08/29/19 20:00 97.9 63 19 130/69 (89) 95 08/29/19 20:00 63 08/29/19 18:18 121/59 08/29/19 16:00 97.9 58 20 121/59 (79) 94 08/29/19 16:00 58 Intake and Output 08/29/19 08/30/19 19:00 07:00 Intake Total 1650.0 ml Output Total 500 ml Balance 1150.0 ml Intake Oral 720 ml IV Total 930.0 ml Output Urine Total 500 ml # Voids 2 4 # Bowel Movements 1 Laboratory Tests 08/30/19 08:40: White Blood Count 5.9, Red Blood Count 3.60L, Hemoglobin 9.9L, Hematocrit 29.7L , Mean Corpuscular Volume 82, Mean Corpuscular Hemoglobin 27.4, Mean Corpuscular Hemoglobin Concent 33.3, Red Cell Distribution Width 12.9, Platelet Count 249, Mean Platelet Volume 5.7L, Neutrophils (%) (Auto) 83.3H, Lymphocytes (%) (Auto) 9.7L, Monocytes (%) (Auto) 6.6, Eosinophils (%) (Auto) 0.1, Basophils (%) (Auto) 0.3, Erythrocyte Sedimentation Rate 110H, Prothrombin Time 10.0, Prothromb Time International Ratio 0.9, Activated Partial Thromboplast Time 28, Sodium Level 138, Potassium Level 4.5, Chloride Level 103, Carbon Dioxide Level 23, Anion Gap 12, Blood Urea Nitrogen 30H, Creatinine 1.6H, Estimat Glomerular Filtration Rate 43.1, Glucose Level 331#H, Calcium Level 8.4L , C-Reactive Protein, Quantitative 2.6H Height (Feet): 5 Height (Inches): 10.00 Weight (Pounds): 210 General Appearance: no apparent distress Neck: normal alignment Cardiovascular: normal rate Respiratory/Chest: lungs clear Abdomen: normal bowel sounds Objective Current Medications Medications (Trade) Dose Ordered Sig/Jayden Route PRN Reason Start Time Stop Time Status Last Admin Dose Admin Acetaminophen (Tylenol) 650 mg Q4H PRN ORAL MILD/TEMP 08/29/19 05:30 09/28/19 05:29 08/30/19 21:29 Albuterol Sulfate (Proventil MDI) 1 puff Q4HRT INH 08/29/19 07:00 11/27/19 06:59 08/31/19 06:18 Ascorbic Acid (Vitamin C) 500 mg DAILY ORAL 08/29/19 09:00 09/28/19 08:59 08/31/19 08:48 Atorvastatin Calcium (Lipitor) 10 mg BEDTIME ORAL 08/29/19 21:00 11/27/19 20:59 08/30/19 21:30 Aztreonam 1 gm/ Dextrose 55 ml @ 110 mls/hr Q8HR IVPB 08/29/19 06:00 09/05/19 05:59 08/31/19 06:15 Bisacodyl (Dulcolax) 10 mg DAILY PRN RECTAL Constipation 08/29/19 05:30 11/27/19 05:29 Brimonidine Tartrate (Alphagan) 1 drop TID BOTH EYES 08/29/19 09:00 11/27/19 08:59 08/31/19 08:48 Dextrose (Dextrose 50%) 25 ml Q30M PRN IV Hypoglycemia 08/29/19 18:00 11/27/19 17:59 Dextrose (Dextrose 50%) 50 ml Q30M PRN IV Hypoglycemia 08/29/19 18:00 11/27/19 17:59 Docusate Sodium (Colace) 100 mg DAILY ORAL 08/29/19 09:00 09/28/19 08:59 08/31/19 08:48 Escitalopram Oxalate (Lexapro) 10 mg DAILY ORAL 08/29/19 09:00 09/28/19 08:59 08/30/19 09:37 Gabapentin (Neurontin) 400 mg THREE TIMES A DAY ORAL 08/29/19 09:00 09/28/19 08:59 08/30/19 17:44 Hydralazine HCl (Apresoline) 25 mg EVERY 6 HOURS ORAL 08/29/19 06:00 11/27/19 05:59 08/31/19 06:14 Insulin Aspart (NovoLOG) BEFORE MEALS AND HS SUBQ 08/29/19 16:30 11/27/19 16:29 08/30/19 12:04 Insulin Aspart (NovoLOG) 20 units NOVOTIAC SUBQ 08/29/19 18:00 11/27/19 17:59 08/30/19 12:05 Insulin Detemir (Levemir) 40 units BID SUBQ 08/29/19 18:00 11/27/19 17:59 08/31/19 08:51 Ipratropium [place] (Atrovent Inh) 1 puffs Q4HRT INH 08/29/19 07:00 09/28/19 06:59 08/31/19 06:17 Lorazepam (Ativan) 1 mg Q6H PRN ORAL For Anxiety 08/30/19 04:30 09/06/19 04:29 Magnesium Hydroxide (Mom) 30 ml QHS PRN ORAL CONSTIPATION 08/29/19 05:30 09/28/19 05:29 Metoprolol Tartrate (Lopressor) 25 mg EVERY 12 HOURS ORAL 08/29/19 09:00 11/27/19 08:59 08/31/19 08:48 Multivitamins (Multivitamins) 1 tab DAILY ORAL 08/29/19 09:00 09/28/19 08:59 08/31/19 08:48 Olanzapine (ZyPREXA) 5 mg BID ORAL 08/30/19 09:00 10/14/19 08:59 08/31/19 08:48 Pantoprazole (Protonix) 40 mg EVERY 12 HOURS ORAL 08/29/19 09:00 09/28/19 08:59 08/31/19 08:48 Polyethylene Glycol (Miralax) 17 gm DAILY ORAL 08/29/19 09:00 09/28/19 08:59 08/31/19 08:48 Sennosides (Senokot) 17.2 mg QHS ORAL 08/29/19 21:00 09/28/19 20:59 08/30/19 21:29 Sodium Chloride 1,000 ml @ 75 mls/hr [id number] IV 08/29/19 06:00 09/28/19 05:59 08/31/19 06:14 Sodium Phosphate (Fleet's Sodium Phosl Enema) 133 ml EVERY OTHER DAY PRN RECTAL Constipation 08/29/19 05:30 09/28/19 05:29 Tamsulosin HCl (Flomax) 0.4 mg QHS ORAL 08/29/19 21:00 09/28/19 20:59 08/30/19 21:30 Temazepam (Restoril) 15 mg BEDTIME PRN ORAL Insomnia 08/29/19 05:30 09/05/19 05:29 Vancomycin HCl (Vanco rx to dose) 1 ea DAILY PRN MISC Per rx protocol 08/29/19 01:30 09/28/19 01:29 Vancomycin/Sodium Chloride 275 ml @ 137.5 mls/ hr Q24H IVPB 08/29/19 15:00 09/03/19 14:59 08/30/19 14:58 Zinc Sulfate (Zinc Sulfate) 220 mg DAILY ORAL 08/29/19 09:00 11/27/19 08:59 08/31/19 08:48 Juve Cordova MD August 30, 2019 12:44
[2019-08-30] MEDS: Vancomycin 1.5gm/NS Premix IVPB SCH (14:58)
[2019-08-30 16:00] VITALS: BP 144/83
[2019-08-30 20:00] VITALS: BP 108/46
[2019-08-30] MEDS: Sennosides 8.6mg tab ORAL SCH (21:29)
[2019-08-30] MEDS: Tamsulosin 0.4mg cap ORAL SCH (21:30)
[2019-08-31] VITALS: BP 122/53
[2019-08-31] MEDS: Ipratropium Bromide Inhaler INH SCH ×7 (01:55→22:51)
[2019-08-31] MEDS: HydrALAZINE 25mg tab ORAL SCH ×4 (01:56→17:28)
[2019-08-31] MEDS: Albuterol 90mcg Inhaler 8gm INH SCH ×7 (01:56→22:51)
[2019-08-31 04:00] VITALS: BP 131/73
[2019-08-31] MEDS: Aztreonam Inj 1 GM in D5W 55 ML IVPB SCH ×3 (06:15→21:22)
[2019-08-31] MEDS: NovoLOG Insulin Flexpen SUBQ SCH ×7 (06:30→21:00)
[2019-08-31 08:00] VITALS: BP 140/46
--- NOTE | 2019-08-31 08:23 | Pulmonology Progress Note ---
Assessment/Plan Assessment/Plan IMPRESSION: 1. Possible pneumonia. 2. Hypoxia. 3. Possible COVID-19 infection. 4. Multiple medical problems consisting of COPD, hyperlipidemia, psych disorder, and diabetes mellitus. DISCUSSION: Continue medications. Hold off on adding any further steroids. Continue pulmonary hygiene. Broad-spectrum antibiotics per ID. I will order oxygen. I will follow carefully. Adama Spangler M.D. Subjective Interval Events: None new Constitutional: Reports: no symptoms; Denies: fever, chills, fatigue, anorexia , drenching sweats, other HEENT: Repors: no symptoms; Denies: visual change, discharge, earache, hearing change, coryza, congestion, post-nasal drip, dysphagia, other Respiratory: Reports: dry cough, shortness of breath Cardiovascular: Reports: no symptoms Gastrointestinal/Abdominal: Reports: no symptoms Genitourinary: Reports: no symptoms Allergies: Coded Allergies: ASPIRIN (Verified Allergy, Unknown, 11/22/17) PENICILLINS (Verified Allergy, Unknown, 11/22/17) SULFAMETHOXAZOLE (Verified Allergy, Unknown, 11/22/17) TRIMETHOPRIM (Verified Allergy, Unknown, 11/22/17) All Systems: reviewed and negative except above Objective Last 24 Hour Vital Signs Date Time Temp Pulse Resp B/P (MAP) Pulse Ox O2 Delivery O2 Flow Rate FiO2 08/31/19 06:14 131/73 08/31/19 04:00 65 08/31/19 04:00 97.4 75 18 131/73 (92) 96 08/31/19 01:56 122/53 08/31/19 00:00 98.4 62 18 122/53 (76) 99 08/31/19 00:00 81 08/30/19 21:59 98.4 08/30/19 21:00 65 108/46 08/30/19 21:00 Nasal Cannula 2.0 08/30/19 20:00 79 08/30/19 20:00 100.8 64 20 108/46 (66) 92 08/30/19 17:44 144/83 08/30/19 16:00 98.6 84 18 144/83 (103) 97 08/30/19 16:00 64 08/30/19 15:59 Nasal Cannula 2.0 08/30/19 12:06 140/78 08/30/19 12:00 78 08/30/19 11:47 98.0 73 20 140/78 (98) 97 08/30/19 09:37 67 134/80 08/30/19 09:00 Nasal Cannula 2.0 Intake and Output 08/30/19 08/31/19 19:00 07:00 Output Total 500 ml Balance -500 ml Output Urine Total 500 ml General Appearance: no acute distress HEENT: normocephalic Respiratory/Chest: chest wall non-tender, lungs clear Cardiovascular: normal peripheral pulses Abdomen: normal bowel sounds Extremities: no cyanosis Microbiology Date/Time Source Procedure Growth Status 08/28/19 22:01 Blood Blood Culture - Preliminary NO GROWTH AFTER 48 HOURS Resulted 08/28/19 21:45 Blood Blood Culture - Preliminary NO GROWTH AFTER 48 HOURS Resulted 08/29/19 21:00 Sputum Gram Stain - Final Resulted 08/29/19 21:00 Sputum Sputum Culture - Preliminary NORMAL UPPER RESPIRATORY JAZMIN AT 24 ... Resulted 08/28/19 22:01 Nasal Nares MRSA Culture - Final Staphylococcus Aureus - Mrsa Complete 08/28/19 22:01 Nasal Aspirate - Final Complete 08/28/19 22:01 Nasal Aspirate - Final Complete 08/29/19 00:11 Urine,Clean Catch Urine Culture - Final Staphylococcus Aureus - Mrsa Complete 08/29/19 00:40 Rectum - Final NO CARBAPENEM-RESISTANT ENTEROBACTERI... Complete 08/29/19 00:40 Rectum VRE Culture - Final NO VANCOMYCIN RESISTANT ENTEROCOCCUS ... Complete Laboratory Tests 08/30/19 08:40: White Blood Count 5.9, Red Blood Count 3.60L, Hemoglobin 9.9L, Hematocrit 29.7L , Mean Corpuscular Volume 82, Mean Corpuscular Hemoglobin 27.4, Mean Corpuscular Hemoglobin Concent 33.3, Red Cell Distribution Width 12.9, Platelet Count 249, Mean Platelet Volume 5.7L, Neutrophils (%) (Auto) 83.3H, Lymphocytes (%) (Auto) 9.7L, Monocytes (%) (Auto) 6.6, Eosinophils (%) (Auto) 0.1, Basophils (%) (Auto) 0.3, Erythrocyte Sedimentation Rate 110H, Prothrombin Time 10.0, Prothromb Time International Ratio 0.9, Activated Partial Thromboplast Time 28, Sodium Level 138, Potassium Level 4.5, Chloride Level 103, Carbon Dioxide Level 23, Anion Gap 12, Blood Urea Nitrogen 30H, Creatinine 1.6H, Estimat Glomerular Filtration Rate 43.1, Glucose Level 331#H, Calcium Level 8.4L , C-Reactive Protein, Quantitative 2.6H Current Medications Medications (Trade) Dose Ordered Sig/Jayden Route PRN Reason Start Time Stop Time Status Last Admin Dose Admin Acetaminophen (Tylenol) 650 mg Q4H PRN ORAL MILD/TEMP 08/29/19 05:30 09/28/19 05:29 08/30/19 21:29 Albuterol Sulfate (Proventil MDI) 1 puff Q4HRT INH 08/29/19 07:00 11/27/19 06:59 08/31/19 06:18 Ascorbic Acid (Vitamin C) 500 mg DAILY ORAL 08/29/19 09:00 09/28/19 08:59 08/30/19 09:37 Atorvastatin Calcium (Lipitor) 10 mg BEDTIME ORAL 08/29/19 21:00 11/27/19 20:59 08/30/19 21:30 Aztreonam 1 gm/ Dextrose 55 ml @ 110 mls/hr Q8HR IVPB 08/29/19 06:00 09/05/19 05:59 08/31/19 06:15 Bisacodyl (Dulcolax) 10 mg DAILY PRN RECTAL Constipation 08/29/19 05:30 11/27/19 05:29 Brimonidine Tartrate (Alphagan) 1 drop TID BOTH EYES 08/29/19 09:00 11/27/19 08:59 08/30/19 17:43 Dextrose (Dextrose 50%) 25 ml Q30M PRN IV Hypoglycemia 08/29/19 18:00 11/27/19 17:59 Dextrose (Dextrose 50%) 50 ml Q30M PRN IV Hypoglycemia 08/29/19 18:00 11/27/19 17:59 Docusate Sodium (Colace) 100 mg DAILY ORAL 08/29/19 09:00 09/28/19 08:59 08/30/19 09:36 Escitalopram Oxalate (Lexapro) 10 mg DAILY ORAL 08/29/19 09:00 09/28/19 08:59 08/30/19 09:37 Gabapentin (Neurontin) 400 mg THREE TIMES A DAY ORAL 08/29/19 09:00 09/28/19 08:59 08/30/19 17:44 Hydralazine HCl (Apresoline) 25 mg EVERY 6 HOURS ORAL 08/29/19 06:00 11/27/19 05:59 08/31/19 06:14 Insulin Aspart (NovoLOG) BEFORE MEALS AND HS SUBQ 08/29/19 16:30 11/27/19 16:29 08/30/19 12:04 Insulin Aspart (NovoLOG) 20 units NOVOTIAC SUBQ 08/29/19 18:00 11/27/19 17:59 08/30/19 12:05 Insulin Detemir (Levemir) 40 units BID SUBQ 08/29/19 18:00 11/27/19 17:59 08/30/19 17:45 Ipratropium [place] (Atrovent Inh) 1 puffs Q4HRT INH 08/29/19 07:00 09/28/19 06:59 08/31/19 06:17 Lorazepam (Ativan) 1 mg Q6H PRN ORAL For Anxiety 08/30/19 04:30 09/06/19 04:29 Magnesium Hydroxide (Mom) 30 ml QHS PRN ORAL CONSTIPATION 08/29/19 05:30 09/28/19 05:29 Metoprolol Tartrate (Lopressor) 25 mg EVERY 12 HOURS ORAL 08/29/19 09:00 11/27/19 08:59 08/30/19 09:37 Multivitamins (Multivitamins) 1 tab DAILY ORAL 08/29/19 09:00 09/28/19 08:59 08/30/19 09:37 Olanzapine (ZyPREXA) 5 mg BID ORAL 08/30/19 09:00 10/14/19 08:59 08/30/19 17:44 Pantoprazole (Protonix) 40 mg EVERY 12 HOURS ORAL 08/29/19 09:00 09/28/19 08:59 08/30/19 21:30 Polyethylene Glycol (Miralax) 17 gm DAILY ORAL 08/29/19 09:00 09/28/19 08:59 08/30/19 09:37 Sennosides (Senokot) 17.2 mg QHS ORAL 08/29/19 21:00 09/28/19 20:59 08/30/19 21:29 Sodium Chloride 1,000 ml @ 75 mls/hr [id number] IV 08/29/19 06:00 09/28/19 05:59 08/31/19 06:14 Sodium Phosphate (Fleet's Sodium Phosl Enema) 133 ml EVERY OTHER DAY PRN RECTAL Constipation 08/29/19 05:30 09/28/19 05:29 Tamsulosin HCl (Flomax) 0.4 mg QHS ORAL 08/29/19 21:00 09/28/19 20:59 08/30/19 21:30 Temazepam (Restoril) 15 mg BEDTIME PRN ORAL Insomnia 08/29/19 05:30 09/05/19 05:29 Vancomycin HCl (Vanco rx to dose) 1 ea DAILY PRN MISC Per rx protocol 08/29/19 01:30 09/28/19 01:29 Vancomycin/Sodium Chloride 275 ml @ 137.5 mls/ hr Q24H IVPB 08/29/19 15:00 09/03/19 14:59 08/30/19 14:58 Zinc Sulfate (Zinc Sulfate) 220 mg DAILY ORAL 08/29/19 09:00 11/27/19 08:59 08/30/19 09:36 Adama Spangler MD August 31, 2019 08:22
[2019-08-31] MEDS: Zinc Sulfate 220mg cap ORAL SCH (08:48)
[2019-08-31] MEDS: Ascorbic Acid 500mg tab ORAL SCH (08:48)
[2019-08-31] MEDS: Docusate 100mg cap ORAL SCH (08:48)
[2019-08-31] MEDS: Brimonidine 0.2% Opth Sol BOTH EYES SCH ×3 (08:48→17:28)
[2019-08-31] MEDS: Miralax 17gm pkt ORAL SCH (08:48)
[2019-08-31] MEDS: Levemir Flexpen SUBQ SCH ×2 (08:51→17:41)
--- NOTE | 2019-08-31 09:05 | General Progress Note ---
Assessment/Plan Problem List: (1) Hypoxia ICD Codes: R09.02 - Hypoxemia SNOMED: 930497419, 368508889 (2) Fever ICD Codes: R50.9 - Fever, unspecified SNOMED: 131918373 (3) Diabetes mellitus ICD Codes: E11.9 - Type 2 diabetes mellitus without complications SNOMED: 72369423 (4) Morbid obesity ICD Codes: E66.01 - Morbid (severe) obesity due to excess calories SNOMED: 556003850 (5) Decubitus skin ulcer ICD Codes: L89.90 - Pressure ulcer of unspecified site, unspecified stage SNOMED: 480749182 (6) SOB (shortness of breath) ICD Codes: R06.02 - Shortness of breath SNOMED: 501055980 (7) Suspected COVID-19 virus infection ICD Codes: Z20.828 - Contact with and (suspected) exposure to other viral communicable diseases SNOMED: 011134833 Status: unchanged Assessment/Plan: pt diet o2 pulm tx prn abx per id aru eval Subjective Constitutional: Reports: weakness Allergies: Coded Allergies: ASPIRIN (Verified Allergy, Unknown, 11/22/17) PENICILLINS (Verified Allergy, Unknown, 11/22/17) SULFAMETHOXAZOLE (Verified Allergy, Unknown, 11/22/17) TRIMETHOPRIM (Verified Allergy, Unknown, 11/22/17) All Systems: reviewed and negative except above Subjective o2nc sleepy Objective Last 24 Hour Vital Signs Date Time Temp Pulse Resp B/P (MAP) Pulse Ox O2 Delivery O2 Flow Rate FiO2 08/31/19 08:48 65 131/73 08/31/19 06:14 131/73 08/31/19 04:00 65 08/31/19 04:00 97.4 75 18 131/73 (92) 96 08/31/19 01:56 122/53 08/31/19 00:00 98.4 62 18 122/53 (76) 99 08/31/19 00:00 81 08/30/19 21:59 98.4 08/30/19 21:00 65 108/46 08/30/19 21:00 Nasal Cannula 2.0 08/30/19 20:00 79 08/30/19 20:00 100.8 64 20 108/46 (66) 92 08/30/19 17:44 144/83 08/30/19 16:00 98.6 84 18 144/83 (103) 97 08/30/19 16:00 64 08/30/19 15:59 Nasal Cannula 2.0 08/30/19 12:06 140/78 08/30/19 12:00 78 08/30/19 11:47 98.0 73 20 140/78 (98) 97 08/30/19 09:37 67 134/80 Intake and Output 08/30/19 08/31/19 19:00 07:00 Output Total 500 ml Balance -500 ml Output Urine Total 500 ml Laboratory Tests 08/31/19 07:40: White Blood Count [Pending], Red Blood Count [Pending], Hemoglobin [Pending], Hematocrit [Pending], Mean Corpuscular Volume [Pending], Mean Corpuscular Hemoglobin [Pending], Mean Corpuscular Hemoglobin Concent [Pending], Red Cell Distribution Width [Pending], Platelet Count [Pending], Mean Platelet Volume [ Pending], Neutrophils (%) (Auto) [Pending], Lymphocytes (%) (Auto) [Pending], Monocytes (%) (Auto) [Pending], Eosinophils (%) (Auto) [Pending], Basophils (%) (Auto) [Pending], Sodium Level [Pending], Potassium Level [Pending], Chloride Level [Pending], Carbon Dioxide Level [Pending], Blood Urea Nitrogen [Pending], Creatinine [Pending], Estimat Glomerular Filtration Rate [Pending], Glucose Level [Pending], Calcium Level [Pending] Height (Feet): 5 Height (Inches): 10.00 Weight (Pounds): 210 General Appearance: lethargic EENT: normal ENT inspection Neck: normal alignment Cardiovascular: normal rate, regular rhythm Respiratory/Chest: no respiratory distress, no accessory muscle use Extremities: normal inspection Skin: normal pigmentation Joe Salinas DO August 31, 2019 09:05
[2019-08-31 09:22] LABS: BASOPHILS % (AUTO) 0.6 % (0.0-2.0); EOSINOPHILS % (AUTO) 0.6 % (0.0-3.0); HEMATOCRIT 31.5 % (42.0-52.0); HEMOGLOBIN 10.4 G/DL (14.2-18.0); LYMPHOCYTES % (AUTO) 14.2 % (20.0-45.0); MEAN CORPUSCULAR VOLUME 84 FL (80-99); MONOCYTES % (AUTO) 9.1 % (1.0-10.0); NEUTROPHILS % (AUTO) 75.6 % (45.0-75.0); PLATELET COUNT 234 K/UL (150-450); RED BLOOD COUNT 3.76 M/UL (4.70-6.10); RED CELL DISTRIBUTION WIDTH 13.4 % (11.6-14.8); WHITE BLOOD COUNT 5.2 K/UL (4.8-10.8)
[2019-08-31 09:28] LABS: ANION GAP 10 mmol/L (5-15); BLOOD UREA NITROGEN 25 mg/dL (7-18); CALCIUM 8.9 MG/DL (8.5-10.1); CARBON DIOXIDE 24 MMOL/L (21-32); CHLORIDE 104 MMOL/L (98-107); CREATININE 1.5 MG/DL (0.55-1.30); POTASSIUM 4.2 MMOL/L (3.5-5.1); SODIUM 138 MMOL/L (136-145)
--- NOTE | 2019-08-31 10:25 | General Progress Note ---
Assessment/Plan Problem List: (1) Pneumonia ICD Codes: J18.9 - Pneumonia, unspecified organism SNOMED: 716809149, 561177136 (2) Suspected COVID-19 virus infection ICD Codes: Z20.828 - Contact with and (suspected) exposure to other viral communicable diseases SNOMED: 652880519 (3) Diabetes mellitus ICD Codes: E11.9 - Type 2 diabetes mellitus without complications SNOMED: 93356337 Status: unchanged Assessment/Plan: reduce Levemir to 30 units bid reduced Novolog to 10 units ac tid continue Novolog sliding scale ac / hs Subjective Allergies: Coded Allergies: ASPIRIN (Verified Allergy, Unknown, 11/22/17) PENICILLINS (Verified Allergy, Unknown, 11/22/17) SULFAMETHOXAZOLE (Verified Allergy, Unknown, 11/22/17) TRIMETHOPRIM (Verified Allergy, Unknown, 11/22/17) All Systems: reviewed and negative except above Subjective events noted - interval notes reviewed glucose values improved Item Value Date Time Bedside Blood Glucose 114 mg/dl 08/31/19 0851 Bedside Blood Glucose 114 mg/dl 08/31/19 0630 Bedside Blood Glucose 133 mg/dl H 08/30/19 2100 Bedside Blood Glucose 136 mg/dl H 08/30/19 1745 Bedside Blood Glucose 280 mg/dl H 08/30/19 1205 Objective Last 24 Hour Vital Signs Date Time Temp Pulse Resp B/P (MAP) Pulse Ox O2 Delivery O2 Flow Rate FiO2 08/31/19 08:48 65 131/73 08/31/19 06:14 131/73 08/31/19 04:00 65 08/31/19 04:00 97.4 75 18 131/73 (92) 96 08/31/19 01:56 122/53 08/31/19 00:00 98.4 62 18 122/53 (76) 99 08/31/19 00:00 81 08/30/19 21:59 98.4 08/30/19 21:00 65 108/46 08/30/19 21:00 Nasal Cannula 2.0 08/30/19 20:00 79 08/30/19 20:00 100.8 64 20 108/46 (66) 92 08/30/19 17:44 144/83 08/30/19 16:00 98.6 84 18 144/83 (103) 97 08/30/19 16:00 64 08/30/19 15:59 Nasal Cannula 2.0 08/30/19 12:06 140/78 08/30/19 12:00 78 08/30/19 11:47 98.0 73 20 140/78 (98) 97 Intake and Output 08/30/19 08/31/19 19:00 07:00 Output Total 500 ml Balance -500 ml Output Urine Total 500 ml Laboratory Tests 08/31/19 07:40: White Blood Count 5.2, Red Blood Count 3.76L, Hemoglobin 10.4L, Hematocrit 31.5L , Mean Corpuscular Volume 84, Mean Corpuscular Hemoglobin 27.6, Mean Corpuscular Hemoglobin Concent 32.9, Red Cell Distribution Width 13.4, Platelet Count 234, Mean Platelet Volume 6.0L, Neutrophils (%) (Auto) 75.6H, Lymphocytes (%) (Auto) 14.2L, Monocytes (%) (Auto) 9.1, Eosinophils (%) (Auto) 0.6, Basophils (%) (Auto) 0.6, Sodium Level 138, Potassium Level 4.2, Chloride Level 104, Carbon Dioxide Level 24, Anion Gap 10, Blood Urea Nitrogen 25H, Creatinine 1.5H, Estimat Glomerular Filtration Rate 46.4, Glucose Level 198#H, Calcium Level 8.9 Height (Feet): 5 Height (Inches): 10.00 Weight (Pounds): 210 General Appearance: no apparent distress Neck: normal alignment Cardiovascular: normal rate Respiratory/Chest: lungs clear Abdomen: normal bowel sounds Objective Current Medications Medications (Trade) Dose Ordered Sig/Jayden Route PRN Reason Start Time Stop Time Status Last Admin Dose Admin Acetaminophen (Tylenol) 650 mg Q4H PRN ORAL MILD/TEMP 08/29/19 05:30 09/28/19 05:29 08/30/19 21:29 Albuterol Sulfate (Proventil MDI) 1 puff Q4HRT INH 08/29/19 07:00 11/27/19 06:59 08/31/19 06:18 Ascorbic Acid (Vitamin C) 500 mg DAILY ORAL 08/29/19 09:00 09/28/19 08:59 08/31/19 08:48 Atorvastatin Calcium (Lipitor) 10 mg BEDTIME ORAL 08/29/19 21:00 11/27/19 20:59 08/30/19 21:30 Aztreonam 1 gm/ Dextrose 55 ml @ 110 mls/hr Q8HR IVPB 08/29/19 06:00 09/05/19 05:59 08/31/19 06:15 Bisacodyl (Dulcolax) 10 mg DAILY PRN RECTAL Constipation 08/29/19 05:30 11/27/19 05:29 Brimonidine Tartrate (Alphagan) 1 drop TID BOTH EYES 08/29/19 09:00 11/27/19 08:59 08/31/19 08:48 Dextrose (Dextrose 50%) 25 ml Q30M PRN IV Hypoglycemia 08/29/19 18:00 11/27/19 17:59 Dextrose (Dextrose 50%) 50 ml Q30M PRN IV Hypoglycemia 08/29/19 18:00 11/27/19 17:59 Docusate Sodium (Colace) 100 mg DAILY ORAL 08/29/19 09:00 09/28/19 08:59 08/31/19 08:48 Escitalopram Oxalate (Lexapro) 10 mg DAILY ORAL 08/29/19 09:00 09/28/19 08:59 08/30/19 09:37 Gabapentin (Neurontin) 400 mg THREE TIMES A DAY ORAL 08/29/19 09:00 09/28/19 08:59 08/30/19 17:44 Hydralazine HCl (Apresoline) 25 mg EVERY 6 HOURS ORAL 08/29/19 06:00 11/27/19 05:59 08/31/19 06:14 Insulin Aspart (NovoLOG) BEFORE MEALS AND HS SUBQ 08/29/19 16:30 11/27/19 16:29 08/30/19 12:04 Insulin Aspart (NovoLOG) 20 units NOVOTIAC SUBQ 08/29/19 18:00 11/27/19 17:59 08/30/19 12:05 Insulin Detemir (Levemir) 40 units BID SUBQ 08/29/19 18:00 11/27/19 17:59 08/31/19 08:51 Ipratropium [place] (Atrovent Inh) 1 puffs Q4HRT INH 08/29/19 07:00 09/28/19 06:59 08/31/19 06:17 Lorazepam (Ativan) 1 mg Q6H PRN ORAL For Anxiety 08/30/19 04:30 09/06/19 04:29 Magnesium Hydroxide (Mom) 30 ml QHS PRN ORAL CONSTIPATION 08/29/19 05:30 09/28/19 05:29 Metoprolol Tartrate (Lopressor) 25 mg EVERY 12 HOURS ORAL 08/29/19 09:00 11/27/19 08:59 08/31/19 08:48 Multivitamins (Multivitamins) 1 tab DAILY ORAL 08/29/19 09:00 09/28/19 08:59 08/31/19 08:48 Olanzapine (ZyPREXA) 5 mg BID ORAL 08/30/19 09:00 10/14/19 08:59 08/31/19 08:48 Pantoprazole (Protonix) 40 mg EVERY 12 HOURS ORAL 08/29/19 09:00 09/28/19 08:59 08/31/19 08:48 Polyethylene Glycol (Miralax) 17 gm DAILY ORAL 08/29/19 09:00 09/28/19 08:59 08/31/19 08:48 Sennosides (Senokot) 17.2 mg QHS ORAL 08/29/19 21:00 09/28/19 20:59 08/30/19 21:29 Sodium Chloride 1,000 ml @ 75 mls/hr [id number] IV 08/29/19 06:00 09/28/19 05:59 08/31/19 06:14 Sodium Phosphate (Fleet's Sodium Phosl Enema) 133 ml EVERY OTHER DAY PRN RECTAL Constipation 08/29/19 05:30 09/28/19 05:29 Tamsulosin HCl (Flomax) 0.4 mg QHS ORAL 08/29/19 21:00 09/28/19 20:59 08/30/19 21:30 Temazepam (Restoril) 15 mg BEDTIME PRN ORAL Insomnia 08/29/19 05:30 09/05/19 05:29 Vancomycin HCl (Vanco rx to dose) 1 ea DAILY PRN MISC Per rx protocol 08/29/19 01:30 09/28/19 01:29 Vancomycin/Sodium Chloride 275 ml @ 137.5 mls/ hr Q24H IVPB 08/29/19 15:00 09/03/19 14:59 08/30/19 14:58 Zinc Sulfate (Zinc Sulfate) 220 mg DAILY ORAL 08/29/19 09:00 11/27/19 08:59 08/31/19 08:48 Juve Cordova MD August 31, 2019 10:25
--- NOTE | 2019-08-31 11:25 | Surgery Progress Note ---
Surgery Progress Note Subjective Additional Comments Patient seen and examined bedside. No acute events. Comfortable. No complaints. Still little agitated at times. Labs improved Objective Last 24 Hour Vital Signs Date Time Temp Pulse Resp B/P (MAP) Pulse Ox O2 Delivery O2 Flow Rate FiO2 08/31/19 08:48 65 131/73 08/31/19 06:14 131/73 08/31/19 04:00 65 08/31/19 04:00 97.4 75 18 131/73 (92) 96 08/31/19 01:56 122/53 08/31/19 00:00 98.4 62 18 122/53 (76) 99 08/31/19 00:00 81 08/30/19 21:59 98.4 08/30/19 21:00 65 108/46 08/30/19 21:00 Nasal Cannula 2.0 08/30/19 20:00 79 08/30/19 20:00 100.8 64 20 108/46 (66) 92 08/30/19 17:44 144/83 08/30/19 16:00 98.6 84 18 144/83 (103) 97 08/30/19 16:00 64 08/30/19 15:59 Nasal Cannula 2.0 08/30/19 12:06 140/78 08/30/19 12:00 78 08/30/19 11:47 98.0 73 20 140/78 (98) 97 I&O Intake and Output 08/30/19 08/31/19 19:00 07:00 Output Total 500 ml Balance -500 ml Output Urine Total 500 ml Dressing: saturated Wound: other Drains: other Cardiovascular: RSR Respiratory: decreased breath sounds Abdomen: soft, non-tender, present bowel sounds Extremities: no tenderness, no cyanosis, other Laboratory Tests Test 08/31/19 07:40 White Blood Count 5.2 K/UL (4.8-10.8) Red Blood Count 3.76 M/UL (4.70-6.10) L Hemoglobin 10.4 G/DL (14.2-18.0) L Hematocrit 31.5 % (42.0-52.0) L Mean Corpuscular Volume 84 FL (80-99) Mean Corpuscular Hemoglobin 27.6 PG (27.0-31.0) Mean Corpuscular Hemoglobin Concent 32.9 G/DL (32.0-36.0) Red Cell Distribution Width 13.4 % (11.6-14.8) Platelet Count 234 K/UL (150-450) Mean Platelet Volume 6.0 FL (6.5-10.1) L Neutrophils (%) (Auto) 75.6 % (45.0-75.0) H Lymphocytes (%) (Auto) 14.2 % (20.0-45.0) L Monocytes (%) (Auto) 9.1 % (1.0-10.0) Eosinophils (%) (Auto) 0.6 % (0.0-3.0) Basophils (%) (Auto) 0.6 % (0.0-2.0) Sodium Level 138 MMOL/L (136-145) Potassium Level 4.2 MMOL/L (3.5-5.1) Chloride Level 104 MMOL/L (98-107) Carbon Dioxide Level 24 MMOL/L (21-32) Anion Gap 10 mmol/L (5-15) Blood Urea Nitrogen 25 mg/dL (7-18) H Creatinine 1.5 MG/DL (0.55-1.30) H Estimat Glomerular Filtration Rate 46.4 mL/min (>60) Glucose Level 198 MG/DL (74-106) #H Calcium Level 8.9 MG/DL (8.5-10.1) Plan Problems: (1) Fever Assessment & Plan: 68-year-old male admitted for fevers. Currently afebrile hemodynamic stable. Labs noted as above. Chest x-ray with Body habitus limits evaluation. Inspiration is suboptimal. Patient is rotated to the right. There is suggestion of a focal hazy peripheral infiltrate in the inferior right upper lobe. There is some atelectasis at the left lung base. The heart size is upper limits of normal. Impression: Suspect faint hazy peripheral infiltrate in the inferior right upper lobe. possible COVID pending test fevers unlikely related to sacrum will follow with recs abx as per ID local wound care trend labs okay for diet as tolerated (2) Morbid obesity (3) Decubitus skin ulcer Assessment & Plan: Pt presented on admission with three Full Thickness pressure injuries,each in close proximity L Sacrum. Wounds were measured as one (L)1.7cm x (W)2.1cm x (D)0.2cm. Wounds have a punctured appearance and are beefy- red and moist. No odor or exudate noted. Periwound ,extending to R and L gluteal cheeks,skin is maroon in colour with marginal erythema(L)8.5cm x (W) 10cm but is not indurated However, pt yells when site is minimally palpated. Non -blanching erythema noted to upper sacral region. Scrotum is erythematous . Stable dry eschar noted to dorsal R 2nd metatarsal. Historical scar with hyperpigmentation noted to L heel. Pt confirmed Hx. of having pressure injuries to both heels. Both heels are boggy but blanchable. Pt is receiving oxygen via nasal cannula and clefts of both R and L ears are erythematous. Oxygen tubing padded with Gauze and tubing maintained loosely around ears. Tx.Plan: Cleanse wounds sacrum with Saline. Apply Therahoney. Apply Moisture Barrier Paste periwound. Cover with Optifoam drsg. Change Daily and prn. Apply Moisture Barrier Paste to Scrotum with each Incontinence care. Apply Cavilon Skin Barrier to both heels and Malleoli. Cover each site with Optifoam drsg. Change every 7 days and prn. Apply Betadine to R 2nd metatarsal Daily and prn. Reposition at least every 2hours or as tolerated. Off-load heels with pillow. APM/IRIS mattress overlay. DAILY ESTIMATED NEEDS: Needs based on Obese, wound DM/ 78kg abw 20-25 kcals/kg 7879-2993 total kcals 1.25-2 g protein/kg 98-156 g total protein 25-30 mL/kg 3531-5219 total fluid mLs NUTRITION DIAGNOSIS: 1) Increased protein intake needs R/T wound healing as evidenced by admitted w/ 3 open wound stage III linear wounds near sacral region. 2) Altered nutrition related lab values R/T diabetes as evidenced by POC glu (421, 364), 1+ U glu. CURRENT DIET:CCHO MED, mech soft chopped PO DIET RECOMMENDATIONS: CCHO LOW w/ DOUBLE PROTEINS (texture per BINGO FLOATER) ADDITIONAL RECOMMENDATIONS: 1) Recalibrated bed scale wt for accurate CBW 2) Wound healing: Continue MVI + VIT C+ ZNSO4 MARZENA BID 3) Monitor BGs closely for hypoglycemia and hyperglycemia : on long acting + short acting insulin 4) Consider BINGO FLOATER eval for appropriate texture (4) Suspected COVID-19 virus infection Assessment & Plan: pending test Good Love August 31, 2019 11:25
[2019-08-31 12:00] VITALS: BP 126/55
[2019-08-31] MEDS: Vancomycin 1.5gm/NS Premix IVPB SCH (15:29)
[2019-08-31 16:00] VITALS: BP 125/62
[2019-08-31 20:00] VITALS: BP 127/63
--- NOTE | 2019-08-31 20:30 | Progress Note ---
DATE: 08/31/2019 SUBJECTIVE: The patient is a 68-year-old male patient with pneumonia. This patient continues to have anemia, decubitus skin ulcer and dehydration as well. He also has altered mental status, confusion, decline in cognition below his baseline. That is why, his attending has requested a daily consultation. MENTAL STATUS EXAMINATION: This is a 68-year-old male. Appearance is disheveled. Attitude, irritable and agitated. Affect, guarded and restricted. Intellect poor. Mood, depressed and anxious. Motor activity, psychomotor agitation. Attention span is poor. Orientation x2. Speech is low volume, slurred. Thought process, disorganized. Thought process is poor. DIAGNOSIS: Major depressive disorder, mild, recurrent with psychotic features, rule out dementia with psychosis. PLAN: Treat with Lexapro 10 mg daily, Neurontin 400 mg 3 times a day, Zyprexa 5 mg twice a day and 20 minutes of cognitive behavioral therapy was provided to identify automatic negative thoughts, help him convert negative thoughts to more positive thoughts to reduce depression, anxiety, and mood lability. Twenty minutes of insight-oriented psychotherapy provided. Chart reviewed. Discussed with staff. Seen and assessed at bedside. Deborah Sosa M.D. DR: Hector JOB#: [id number] CC:
[2019-08-31] MEDS: Tamsulosin 0.4mg cap ORAL SCH (21:21)
[2019-08-31] MEDS: Sennosides 8.6mg tab ORAL SCH (21:22)
[2019-09-01] MEDS: Ipratropium Bromide Inhaler INH SCH ×6 (03:00→23:00)
[2019-09-01] MEDS: Albuterol 90mcg Inhaler 8gm INH SCH ×6 (03:00→23:00)
[2019-09-01] MEDS: HydrALAZINE 25mg tab ORAL SCH ×4 (06:00→18:05)
[2019-09-01] MEDS: Aztreonam Inj 1 GM in D5W 55 ML IVPB SCH ×3 (06:00→22:38)
[2019-09-01] MEDS: NovoLOG Insulin Flexpen SUBQ SCH ×7 (06:30→21:00)
[2019-09-01 08:00] VITALS: BP 147/70
[2019-09-01 09:37] LABS: BASOPHILS % (AUTO) 0.6 % (0.0-2.0); HEMATOCRIT 29.6 % (42.0-52.0); HEMOGLOBIN 9.7 G/DL (14.2-18.0); LYMPHOCYTES % (AUTO) 18.7 % (20.0-45.0); MEAN CORPUSCULAR VOLUME 83 FL (80-99); MONOCYTES % (AUTO) 9.3 % (1.0-10.0); NEUTROPHILS % (AUTO) 68.3 % (45.0-75.0); PLATELET COUNT 243 K/UL (150-450); RED BLOOD COUNT 3.57 M/UL (4.70-6.10); RED CELL DISTRIBUTION WIDTH 13.4 % (11.6-14.8); WHITE BLOOD COUNT 3.9 K/UL (4.8-10.8)
--- NOTE | 2019-09-01 09:42 | General Progress Note ---
Assessment/Plan Problem List: (1) Hypoxia ICD Codes: R09.02 - Hypoxemia SNOMED: 932763741, 202303451 (2) Fever ICD Codes: R50.9 - Fever, unspecified SNOMED: 704257697 (3) Diabetes mellitus ICD Codes: E11.9 - Type 2 diabetes mellitus without complications SNOMED: 46648236 (4) Morbid obesity ICD Codes: E66.01 - Morbid (severe) obesity due to excess calories SNOMED: 850595099 (5) Decubitus skin ulcer ICD Codes: L89.90 - Pressure ulcer of unspecified site, unspecified stage SNOMED: 528000752 (6) SOB (shortness of breath) ICD Codes: R06.02 - Shortness of breath SNOMED: 875501514 (7) Suspected COVID-19 virus infection ICD Codes: Z20.828 - Contact with and (suspected) exposure to other viral communicable diseases SNOMED: 317565253 Status: unchanged Assessment/Plan: pt diet o2 pulm tx prn abx per id aru eval Subjective Constitutional: Reports: weakness Allergies: Coded Allergies: ASPIRIN (Verified Allergy, Unknown, 11/22/17) PENICILLINS (Verified Allergy, Unknown, 11/22/17) SULFAMETHOXAZOLE (Verified Allergy, Unknown, 11/22/17) TRIMETHOPRIM (Verified Allergy, Unknown, 11/22/17) All Systems: reviewed and negative except above Subjective o2nc sleepy Objective Last 24 Hour Vital Signs Date Time Temp Pulse Resp B/P (MAP) Pulse Ox O2 Delivery O2 Flow Rate FiO2 09/01/19 06:00 133/68 09/01/19 04:00 77 09/01/19 00:00 60 08/31/19 21:22 98 127/63 08/31/19 21:00 Nasal Cannula 2.0 08/31/19 20:00 91 08/31/19 20:00 98.9 98 17 127/63 (84) 93 08/31/19 17:28 125/62 08/31/19 16:00 98.4 93 22 125/62 (83) 98 08/31/19 16:00 77 08/31/19 12:19 131/73 08/31/19 12:00 74 08/31/19 12:00 99.4 97 19 126/55 (78) 99 Intake and Output 08/31/19 09/01/19 19:00 07:00 Intake Total 140 ml Output Total 1200 ml Balance -1060 ml Intake Oral 140 ml Output Urine Total 1200 ml # Voids 3 5 Laboratory Tests 08/31/19 14:20: Vancomycin Level Trough 14.4H 09/01/19 07:33: White Blood Count [Pending], Red Blood Count [Pending], Hemoglobin [Pending], Hematocrit [Pending], Mean Corpuscular Volume [Pending], Mean Corpuscular Hemoglobin [Pending], Mean Corpuscular Hemoglobin Concent [Pending], Red Cell Distribution Width [Pending], Platelet Count [Pending], Mean Platelet Volume [ Pending], Neutrophils (%) (Auto) [Pending], Lymphocytes (%) (Auto) [Pending], Monocytes (%) (Auto) [Pending], Eosinophils (%) (Auto) [Pending], Basophils (%) (Auto) [Pending], Sodium Level [Pending], Potassium Level [Pending], Chloride Level [Pending], Carbon Dioxide Level [Pending], Blood Urea Nitrogen [Pending], Creatinine [Pending], Estimat Glomerular Filtration Rate [Pending], Glucose Level [Pending], Calcium Level [Pending] Height (Feet): 5 Height (Inches): 10.00 Weight (Pounds): 210 General Appearance: lethargic EENT: normal ENT inspection Neck: normal alignment Cardiovascular: normal rate, regular rhythm Respiratory/Chest: no respiratory distress, no accessory muscle use Extremities: normal inspection Skin: normal pigmentation Joe Salinas DO September 01, 2019 09:42
[2019-09-01] MEDS: Miralax 17gm pkt ORAL SCH (09:48)
[2019-09-01] MEDS: Docusate 100mg cap ORAL SCH (09:49)
[2019-09-01] MEDS: Ascorbic Acid 500mg tab ORAL SCH (09:49)
[2019-09-01 09:50] LABS: ANION GAP 9 mmol/L (5-15); BLOOD UREA NITROGEN 15 mg/dL (7-18); CALCIUM 8.4 MG/DL (8.5-10.1); CARBON DIOXIDE 26 MMOL/L (21-32); CHLORIDE 109 MMOL/L (98-107); CREATININE 1.3 MG/DL (0.55-1.30); POTASSIUM 3.8 MMOL/L (3.5-5.1); SODIUM 144 MMOL/L (136-145)
[2019-09-01] MEDS: Brimonidine 0.2% Opth Sol BOTH EYES SCH ×3 (09:50→18:06)
[2019-09-01] MEDS: Zinc Sulfate 220mg cap ORAL SCH (09:50)
[2019-09-01] MEDS: Levemir Flexpen SUBQ SCH ×2 (09:58→18:07)
[2019-09-01 12:00] VITALS: BP 140/78
--- NOTE | 2019-09-01 14:01 | Infectious Diseases Prog Note ---
Assessment/Plan Assessment/Plan Assessment: Viral syndrome- likely COVID19 (resident at [facility] with large outbreak) PNA- at 2L NC -CXR: Suspect faint hazy peripheral infiltrate in the inferior right upper lobe. Left basilar atelectasis sp cx normal resp valentin -Bcx NTD Low grade fever Leukopenia Mild AST elevation UTI -u/a wbc tntc; ucx >100k S.ureus Dm2 anemia CKD HLD hx of GIB Anxiety schizoaffective disorder seizure disorder Dementia CVA w/ residual R side deficit BPH COPD HTN morbid obesity DNR/DNI status SNF resident ([facility]) Plan: -Continue empiric IV Vancomycin #5 and Aztreonam #4/5 for now -08/28 SP Cefepime x1 -f/u cx -Monitor CBC/CMP, temperaturse -COVID19 testing and isolation -aspiration precautions -CMP, CXR am Thank you for consulting [facility]. Will continue to follow along wiht you. Subjective Allergies: Coded Allergies: ASPIRIN (Verified Allergy, Unknown, 11/22/17) PENICILLINS (Verified Allergy, Unknown, 11/22/17) SULFAMETHOXAZOLE (Verified Allergy, Unknown, 11/22/17) TRIMETHOPRIM (Verified Allergy, Unknown, 11/22/17) Subjective afebrile at 24hrs Bcx NTD 2l NC Objective Vital Signs Last 24 Hour Vital Signs Date Time Temp Pulse Resp B/P (MAP) Pulse Ox O2 Delivery O2 Flow Rate FiO2 09/01/19 12:35 140/78 09/01/19 12:00 98.0 65 20 140/78 (98) 93 09/01/19 11:57 69 09/01/19 09:49 72 141/70 09/01/19 09:00 Nasal Cannula 2.0 09/01/19 08:00 98.3 72 17 147/70 (95) 93 09/01/19 07:37 79 09/01/19 06:00 133/68 09/01/19 04:00 77 09/01/19 00:00 60 08/31/19 21:22 98 127/63 08/31/19 21:00 Nasal Cannula 2.0 08/31/19 20:00 91 08/31/19 20:00 98.9 98 17 127/63 (84) 93 08/31/19 17:28 125/62 08/31/19 16:00 98.4 93 22 125/62 (83) 98 08/31/19 16:00 77 Height (Feet): 5 Height (Inches): 10.00 Weight (Pounds): 210 Objective not examined to limit COVID19 exposure Microbiology Date/Time Source Procedure Growth Status 08/29/19 21:00 Sputum Gram Stain - Final Complete 08/29/19 21:00 Sputum Sputum Culture - Final NORMAL UPPER RESPIRATORY VALENTIN PRESENT Complete Laboratory Tests Test 08/31/19 14:20 09/01/19 07:33 Vancomycin Level Trough 14.4 ug/mL (5.0-12.0) H White Blood Count 3.9 K/UL (4.8-10.8) L Red Blood Count 3.57 M/UL (4.70-6.10) L Hemoglobin 9.7 G/DL (14.2-18.0) L Hematocrit 29.6 % (42.0-52.0) L Mean Corpuscular Volume 83 FL (80-99) Mean Corpuscular Hemoglobin 27.2 PG (27.0-31.0) Mean Corpuscular Hemoglobin Concent 32.8 G/DL (32.0-36.0) Red Cell Distribution Width 13.4 % (11.6-14.8) Platelet Count 243 K/UL (150-450) Mean Platelet Volume 5.3 FL (6.5-10.1) L Neutrophils (%) (Auto) 68.3 % (45.0-75.0) Lymphocytes (%) (Auto) 18.7 % (20.0-45.0) L Monocytes (%) (Auto) 9.3 % (1.0-10.0) Eosinophils (%) (Auto) 3.0 % (0.0-3.0) Basophils (%) (Auto) 0.6 % (0.0-2.0) Sodium Level 144 MMOL/L (136-145) Potassium Level 3.8 MMOL/L (3.5-5.1) Chloride Level 109 MMOL/L (98-107) H Carbon Dioxide Level 26 MMOL/L (21-32) Anion Gap 9 mmol/L (5-15) Blood Urea Nitrogen 15 mg/dL (7-18) Creatinine 1.3 MG/DL (0.55-1.30) Estimat Glomerular Filtration Rate 54.7 mL/min (>60) Glucose Level 200 MG/DL (74-106) H Calcium Level 8.4 MG/DL (8.5-10.1) L Current Medications Medications (Trade) Dose Ordered Sig/Jayden Route PRN Reason Start Time Stop Time Status Last Admin Dose Admin Acetaminophen (Tylenol) 650 mg Q4H PRN ORAL MILD/TEMP 08/29/19 05:30 09/28/19 05:29 08/30/19 21:29 Albuterol Sulfate (Proventil MDI) 1 puff Q4HRT INH 08/29/19 07:00 11/27/19 06:59 09/01/19 12:32 Ascorbic Acid (Vitamin C) 500 mg DAILY ORAL 08/29/19 09:00 09/28/19 08:59 09/01/19 09:49 Atorvastatin Calcium (Lipitor) 10 mg BEDTIME ORAL 08/29/19 21:00 11/27/19 20:59 08/31/19 21:21 Aztreonam 1 gm/ Dextrose 55 ml @ 110 mls/hr Q8HR IVPB 08/29/19 06:00 09/05/19 05:59 09/01/19 06:00 Bisacodyl (Dulcolax) 10 mg DAILY PRN RECTAL Constipation 08/29/19 05:30 11/27/19 05:29 Brimonidine Tartrate (Alphagan) 1 drop TID BOTH EYES 08/29/19 09:00 11/27/19 08:59 09/01/19 12:30 Dextrose (Dextrose 50%) 25 ml Q30M PRN IV Hypoglycemia 08/29/19 18:00 11/27/19 17:59 Dextrose (Dextrose 50%) 50 ml Q30M PRN IV Hypoglycemia 08/29/19 18:00 11/27/19 17:59 Docusate Sodium (Colace) 100 mg DAILY ORAL 08/29/19 09:00 09/28/19 08:59 09/01/19 09:49 Escitalopram Oxalate (Lexapro) 10 mg DAILY ORAL 08/29/19 09:00 09/28/19 08:59 09/01/19 09:49 Gabapentin (Neurontin) 400 mg THREE TIMES A DAY ORAL 08/29/19 09:00 09/28/19 08:59 09/01/19 12:35 Hydralazine HCl (Apresoline) 25 mg EVERY 6 HOURS ORAL 08/29/19 06:00 11/27/19 05:59 09/01/19 12:35 Insulin Aspart (NovoLOG) BEFORE MEALS AND HS SUBQ 08/29/19 16:30 11/27/19 16:29 09/01/19 12:34 Insulin Aspart (NovoLOG) 10 units NOVOTIAC SUBQ 08/31/19 11:50 11/27/19 17:59 09/01/19 12:34 Insulin Detemir (Levemir) 30 units BID SUBQ 08/31/19 18:00 11/27/19 17:59 09/01/19 09:58 Ipratropium [place] (Atrovent Inh) 1 puffs Q4HRT INH 08/29/19 07:00 09/28/19 06:59 09/01/19 12:30 Lorazepam (Ativan) 1 mg Q6H PRN ORAL For Anxiety 08/30/19 04:30 09/06/19 04:29 Magnesium Hydroxide (Mom) 30 ml QHS PRN ORAL CONSTIPATION 08/29/19 05:30 09/28/19 05:29 Metoprolol Tartrate (Lopressor) 25 mg EVERY 12 HOURS ORAL 08/29/19 09:00 11/27/19 08:59 09/01/19 09:49 Multivitamins (Multivitamins) 1 tab DAILY ORAL 08/29/19 09:00 09/28/19 08:59 09/01/19 09:48 Olanzapine (ZyPREXA) 5 mg BID ORAL 08/30/19 09:00 10/14/19 08:59 09/01/19 09:49 Pantoprazole (Protonix) 40 mg EVERY 12 HOURS ORAL 08/29/19 09:00 09/28/19 08:59 09/01/19 09:48 Polyethylene Glycol (Miralax) 17 gm DAILY ORAL 08/29/19 09:00 09/28/19 08:59 09/01/19 09:48 Sennosides (Senokot) 17.2 mg QHS ORAL 08/29/19 21:00 09/28/19 20:59 08/31/19 21:22 Sodium Chloride 1,000 ml @ 75 mls/hr [id number] IV 08/29/19 06:00 09/28/19 05:59 09/01/19 13:31 Sodium Phosphate (Fleet's Sodium Phosl Enema) 133 ml EVERY OTHER DAY PRN RECTAL Constipation 08/29/19 05:30 09/28/19 05:29 Tamsulosin HCl (Flomax) 0.4 mg QHS ORAL 08/29/19 21:00 09/28/19 20:59 08/31/19 21:21 Temazepam (Restoril) 15 mg BEDTIME PRN ORAL Insomnia 08/29/19 05:30 09/05/19 05:29 Vancomycin HCl (Vanco rx to dose) 1 ea DAILY PRN MISC Per rx protocol 08/29/19 01:30 09/28/19 01:29 Vancomycin/Sodium Chloride 275 ml @ 137.5 mls/ hr Q24H IVPB 08/29/19 15:00 09/03/19 14:59 08/31/19 15:29 Zinc Sulfate (Zinc Sulfate) 220 mg DAILY ORAL 08/29/19 09:00 11/27/19 08:59 09/01/19 09:50 Vandana Rucker M.D. September 01, 2019 14:01
[2019-09-01] MEDS: Vancomycin 1.5gm/NS Premix IVPB SCH (15:52)
[2019-09-01 16:00] VITALS: BP 135/82
--- NOTE | 2019-09-01 16:29 | Progress Note ---
DATE: 09/01/2019 SUBJECTIVE: The patient is a 68-year-old male patient who has pneumonia, rule out COVID-19. He also has hypoxia, dehydration, decubitus ulcer, anemia, altered mental status, confusion, decline in cognition below his baseline that is why attending has requested daily psychiatric consultation. MENTAL STATUS EXAMINATION: This is a 68-year-old male. Appearance is disheveled. Attitude, irritable and agitated. Affect, guarded and restricted. Intellect poor. Mood, depressed and anxious. Motor activity, psychomotor agitation. Insight and judgment is poor. DIAGNOSIS: Major depressive disorder, mild, recurrent with psychotic features. PLAN: Lexapro 10 mg daily, Neurontin three times a day, Zyprexa 5 mg twice a day. A 20 minutes of cognitive behavioral therapy to help him identify his automatic negative thoughts and help him convert negative thoughts to more positive thoughts to reduce depression, anxiety, and mood lability. Chart was reviewed and discussed with staff. The patient was seen and assessed at bedside. Deborah Sosa M.D. DR: Rivka JOB#: [id number] CC:
--- NOTE | 2019-09-01 17:01 | Pulmonology Progress Note ---
Assessment/Plan Assessment/Plan IMPRESSION: 1. Possible pneumonia. 2. Hypoxia. 3. Possible COVID-19 infection. 4. Multiple medical problems consisting of COPD, hyperlipidemia, psych disorder, and diabetes mellitus. DISCUSSION: Continue medications. Hold off on adding any further steroids. Continue pulmonary hygiene. Broad-spectrum antibiotics per ID. Continue oxygen. I will follow carefully. Adama Spangler M.D. Subjective Interval Events: None new Constitutional: Reports: no symptoms; Denies: fever, chills, fatigue, anorexia , drenching sweats, other HEENT: Repors: no symptoms; Denies: visual change, discharge, earache, hearing change, coryza, congestion, post-nasal drip, dysphagia, other Respiratory: Reports: dry cough, shortness of breath Cardiovascular: Reports: no symptoms Gastrointestinal/Abdominal: Reports: no symptoms Genitourinary: Reports: no symptoms Allergies: Coded Allergies: ASPIRIN (Verified Allergy, Unknown, 11/22/17) PENICILLINS (Verified Allergy, Unknown, 11/22/17) SULFAMETHOXAZOLE (Verified Allergy, Unknown, 11/22/17) TRIMETHOPRIM (Verified Allergy, Unknown, 11/22/17) All Systems: reviewed and negative except above Objective Last 24 Hour Vital Signs Date Time Temp Pulse Resp B/P (MAP) Pulse Ox O2 Delivery O2 Flow Rate FiO2 09/01/19 16:00 97.9 62 20 135/82 (99) 93 09/01/19 12:35 140/78 09/01/19 12:00 98.0 65 20 140/78 (98) 09/01/19 11:57 69 09/01/19 09:49 72 141/70 09/01/19 09:00 Nasal Cannula 2.0 09/01/19 08:00 98.3 72 17 147/70 (95) 09/01/19 07:37 79 09/01/19 06:00 133/68 09/01/19 04:00 77 09/01/19 00:00 60 08/31/19 21:22 98 127/63 08/31/19 21:00 Nasal Cannula 2.0 08/31/19 20:00 91 08/31/19 20:00 98.9 98 17 127/63 (84) 93 08/31/19 17:28 125/62 Intake and Output 08/31/19 09/01/19 19:00 07:00 Intake Total 140 ml Output Total 1200 ml Balance -1060 ml Intake Oral 140 ml Output Urine Total 1200 ml # Voids 3 5 General Appearance: no acute distress HEENT: normocephalic Respiratory/Chest: chest wall non-tender, lungs clear Cardiovascular: normal peripheral pulses Abdomen: normal bowel sounds Extremities: no cyanosis Microbiology Date/Time Source Procedure Growth Status 08/29/19 21:00 Sputum Gram Stain - Final Complete 08/29/19 21:00 Sputum Sputum Culture - Final NORMAL UPPER RESPIRATORY JAZMIN PRESENT Complete Laboratory Tests 09/01/19 07:33: White Blood Count 3.9L, Red Blood Count 3.57L, Hemoglobin 9.7L, Hematocrit 29.6L , Mean Corpuscular Volume 83, Mean Corpuscular Hemoglobin 27.2, Mean Corpuscular Hemoglobin Concent 32.8, Red Cell Distribution Width 13.4, Platelet Count 243, Mean Platelet Volume 5.3L, Neutrophils (%) (Auto) 68.3, Lymphocytes ( %) (Auto) 18.7L, Monocytes (%) (Auto) 9.3, Eosinophils (%) (Auto) 3.0, Basophils (%) (Auto) 0.6, Sodium Level 144, Potassium Level 3.8, Chloride Level 109H, Carbon Dioxide Level 26, Anion Gap 9, Blood Urea Nitrogen 15, Creatinine 1.3, Estimat Glomerular Filtration Rate 54.7, Glucose Level 200H, Calcium Level 8.4L Current Medications Medications (Trade) Dose Ordered Sig/Jayden Route PRN Reason Start Time Stop Time Status Last Admin Dose Admin Acetaminophen (Tylenol) 650 mg Q4H PRN ORAL MILD/TEMP 08/29/19 05:30 09/28/19 05:29 08/30/19 21:29 Albuterol Sulfate (Proventil MDI) 1 puff Q4HRT INH 08/29/19 07:00 11/27/19 06:59 09/01/19 15:56 Ascorbic Acid (Vitamin C) 500 mg DAILY ORAL 08/29/19 09:00 09/28/19 08:59 09/01/19 09:49 Atorvastatin Calcium (Lipitor) 10 mg BEDTIME ORAL 08/29/19 21:00 11/27/19 20:59 08/31/19 21:21 Aztreonam 1 gm/ Dextrose 55 ml @ 110 mls/hr Q8HR IVPB 08/29/19 06:00 09/05/19 05:59 09/01/19 14:32 Bisacodyl (Dulcolax) 10 mg DAILY PRN RECTAL Constipation 08/29/19 05:30 11/27/19 05:29 Brimonidine Tartrate (Alphagan) 1 drop TID BOTH EYES 08/29/19 09:00 11/27/19 08:59 09/01/19 12:30 Dextrose (Dextrose 50%) 25 ml Q30M PRN IV Hypoglycemia 08/29/19 18:00 11/27/19 17:59 Dextrose (Dextrose 50%) 50 ml Q30M PRN IV Hypoglycemia 08/29/19 18:00 11/27/19 17:59 Docusate Sodium (Colace) 100 mg DAILY ORAL 08/29/19 09:00 09/28/19 08:59 09/01/19 09:49 Escitalopram Oxalate (Lexapro) 10 mg DAILY ORAL 08/29/19 09:00 09/28/19 08:59 09/01/19 09:49 Gabapentin (Neurontin) 400 mg THREE TIMES A DAY ORAL 08/29/19 09:00 09/28/19 08:59 09/01/19 12:35 Hydralazine HCl (Apresoline) 25 mg EVERY 6 HOURS ORAL 08/29/19 06:00 11/27/19 05:59 09/01/19 12:35 Insulin Aspart (NovoLOG) BEFORE MEALS AND HS SUBQ 08/29/19 16:30 11/27/19 16:29 09/01/19 16:04 Insulin Aspart (NovoLOG) 10 units NOVOTIAC SUBQ 08/31/19 11:50 11/27/19 17:59 09/01/19 16:03 Insulin Detemir (Levemir) 30 units BID SUBQ 08/31/19 18:00 11/27/19 17:59 09/01/19 09:58 Ipratropium [place] (Atrovent Inh) 1 puffs Q4HRT INH 08/29/19 07:00 09/28/19 06:59 09/01/19 15:55 Lorazepam (Ativan) 1 mg Q6H PRN ORAL For Anxiety 08/30/19 04:30 09/06/19 04:29 Magnesium Hydroxide (Mom) 30 ml QHS PRN ORAL CONSTIPATION 08/29/19 05:30 09/28/19 05:29 Metoprolol Tartrate (Lopressor) 25 mg EVERY 12 HOURS ORAL 08/29/19 09:00 11/27/19 08:59 09/01/19 09:49 Multivitamins (Multivitamins) 1 tab DAILY ORAL 08/29/19 09:00 09/28/19 08:59 09/01/19 09:48 Olanzapine (ZyPREXA) 5 mg BID ORAL 08/30/19 09:00 10/14/19 08:59 09/01/19 09:49 Pantoprazole (Protonix) 40 mg EVERY 12 HOURS ORAL 08/29/19 09:00 09/28/19 08:59 09/01/19 09:48 Polyethylene Glycol (Miralax) 17 gm DAILY ORAL 08/29/19 09:00 09/28/19 08:59 09/01/19 09:48 Sennosides (Senokot) 17.2 mg QHS ORAL 08/29/19 21:00 09/28/19 20:59 08/31/19 21:22 Sodium Chloride 1,000 ml @ 75 mls/hr [id number] IV 08/29/19 06:00 09/28/19 05:59 09/01/19 13:31 Sodium Phosphate (Fleet's Sodium Phosl Enema) 133 ml EVERY OTHER DAY PRN RECTAL Constipation 08/29/19 05:30 09/28/19 05:29 Tamsulosin HCl (Flomax) 0.4 mg QHS ORAL 08/29/19 21:00 09/28/19 20:59 08/31/19 21:21 Temazepam (Restoril) 15 mg BEDTIME PRN ORAL Insomnia 08/29/19 05:30 09/05/19 05:29 Vancomycin HCl (Vanco rx to dose) 1 ea DAILY PRN MISC Per rx protocol 08/29/19 01:30 09/28/19 01:29 Vancomycin/Sodium Chloride 275 ml @ 137.5 mls/ hr Q24H IVPB 08/29/19 15:00 09/03/19 14:59 09/01/19 15:52 Zinc Sulfate (Zinc Sulfate) 220 mg DAILY ORAL 08/29/19 09:00 11/27/19 08:59 09/01/19 09:50 Adama Spangler MD September 01, 2019 17:01
[2019-09-01 20:00] VITALS: BP 129/74
[2019-09-01] MEDS: Tamsulosin 0.4mg cap ORAL SCH (21:03)
[2019-09-01] MEDS: Sennosides 8.6mg tab ORAL SCH (21:03)
--- NOTE | 2019-09-01 21:06 | Surgery Progress Note ---
Surgery Progress Note Subjective Additional Comments resting comfortable labs okay no n/v/f/c Objective Last 24 Hour Vital Signs Date Time Temp Pulse Resp B/P (MAP) Pulse Ox O2 Delivery O2 Flow Rate FiO2 09/01/19 21:03 78 129/87 09/01/19 18:05 135/82 09/01/19 16:00 97.9 62 20 135/82 (99) 93 09/01/19 15:43 60 09/01/19 12:35 140/78 09/01/19 12:00 98.0 65 20 140/78 (98) 93 09/01/19 11:57 69 09/01/19 09:49 72 141/70 09/01/19 09:00 Nasal Cannula 2.0 09/01/19 08:00 98.3 72 17 147/70 (95) 93 09/01/19 07:37 79 09/01/19 06:00 133/68 09/01/19 04:00 77 09/01/19 00:00 60 08/31/19 21:22 98 127/63 I&O Intake and Output 08/31/19 09/01/19 19:00 07:00 Intake Total 140 ml Output Total 1200 ml Balance -1060 ml Intake Oral 140 ml Output Urine Total 1200 ml # Voids 3 5 Dressing: other Wound: other Drains: other Cardiovascular: RSR Respiratory: decreased breath sounds Abdomen: soft, non-tender, present bowel sounds Extremities: no tenderness, no cyanosis, other Laboratory Tests Test 09/01/19 07:33 White Blood Count 3.9 K/UL (4.8-10.8) L Red Blood Count 3.57 M/UL (4.70-6.10) L Hemoglobin 9.7 G/DL (14.2-18.0) L Hematocrit 29.6 % (42.0-52.0) L Mean Corpuscular Volume 83 FL (80-99) Mean Corpuscular Hemoglobin 27.2 PG (27.0-31.0) Mean Corpuscular Hemoglobin Concent 32.8 G/DL (32.0-36.0) Red Cell Distribution Width 13.4 % (11.6-14.8) Platelet Count 243 K/UL (150-450) Mean Platelet Volume 5.3 FL (6.5-10.1) L Neutrophils (%) (Auto) 68.3 % (45.0-75.0) Lymphocytes (%) (Auto) 18.7 % (20.0-45.0) L Monocytes (%) (Auto) 9.3 % (1.0-10.0) Eosinophils (%) (Auto) 3.0 % (0.0-3.0) Basophils (%) (Auto) 0.6 % (0.0-2.0) Sodium Level 144 MMOL/L (136-145) Potassium Level 3.8 MMOL/L (3.5-5.1) Chloride Level 109 MMOL/L (98-107) H Carbon Dioxide Level 26 MMOL/L (21-32) Anion Gap 9 mmol/L (5-15) Blood Urea Nitrogen 15 mg/dL (7-18) Creatinine 1.3 MG/DL (0.55-1.30) Estimat Glomerular Filtration Rate 54.7 mL/min (>60) Glucose Level 200 MG/DL (74-106) H Calcium Level 8.4 MG/DL (8.5-10.1) L Plan Problems: (1) Fever Assessment & Plan: 68-year-old male admitted for fevers. Currently afebrile hemodynamic stable. Labs noted as above. Chest x-ray with Body habitus limits evaluation. Inspiration is suboptimal. Patient is rotated to the right. There is suggestion of a focal hazy peripheral infiltrate in the inferior right upper lobe. There is some atelectasis at the left lung base. The heart size is upper limits of normal. Impression: Suspect faint hazy peripheral infiltrate in the inferior right upper lobe. possible COVID pending test fevers unlikely related to sacrum will follow with recs abx as per ID local wound care trend labs okay for diet as tolerated (2) Morbid obesity (3) Decubitus skin ulcer Assessment & Plan: Pt presented on admission with three Full Thickness pressure injuries,each in close proximity L Sacrum. Wounds were measured as one (L)1.7cm x (W)2.1cm x (D)0.2cm. Wounds have a punctured appearance and are beefy- red and moist. No odor or exudate noted. Periwound ,extending to R and L gluteal cheeks,skin is maroon in colour with marginal erythema(L)8.5cm x (W) 10cm but is not indurated However, pt yells when site is minimally palpated. Non -blanching erythema noted to upper sacral region. Scrotum is erythematous . Stable dry eschar noted to dorsal R 2nd metatarsal. Historical scar with hyperpigmentation noted to L heel. Pt confirmed Hx. of having pressure injuries to both heels. Both heels are boggy but blanchable. Pt is receiving oxygen via nasal cannula and clefts of both R and L ears are erythematous. Oxygen tubing padded with Gauze and tubing maintained loosely around ears. Tx.Plan: Cleanse wounds sacrum with Saline. Apply Therahoney. Apply Moisture Barrier Paste periwound. Cover with Optifoam drsg. Change Daily and prn. Apply Moisture Barrier Paste to Scrotum with each Incontinence care. Apply Cavilon Skin Barrier to both heels and Malleoli. Cover each site with Optifoam drsg. Change every 7 days and prn. Apply Betadine to R 2nd metatarsal Daily and prn. Reposition at least every 2hours or as tolerated. Off-load heels with pillow. APM/IRIS mattress overlay. DAILY ESTIMATED NEEDS: Needs based on Obese, wound DM/ 78kg abw 20-25 kcals/kg 0828-2102 total kcals 1.25-2 g protein/kg 98-156 g total protein 25-30 mL/kg 5838-4449 total fluid mLs NUTRITION DIAGNOSIS: 1) Increased protein intake needs R/T wound healing as evidenced by admitted w/ 3 open wound stage III linear wounds near sacral region. 2) Altered nutrition related lab values R/T diabetes as evidenced by POC glu (421, 364), 1+ U glu. [facility] soft chopped PO DIET RECOMMENDATIONS: [facility] LOW w/ DOUBLE PROTEINS (texture per PROJECTION PRINTER) ADDITIONAL RECOMMENDATIONS: 1) Recalibrated bed scale wt for accurate CBW 2) Wound healing: Continue MVI + VIT C+ ZNSO4 MARZENA BID 3) Monitor BGs closely for hypoglycemia and hyperglycemia : on long acting + short acting insulin 4) Consider PROJECTION PRINTER eval for appropriate texture (4) Suspected COVID-19 virus infection Good Love September 01, 2019 21:06
[2019-09-02] VITALS: BP 127/74
[2019-09-02] MEDS: HydrALAZINE 25mg tab ORAL SCH ×4 (00:24→17:01)
[2019-09-02] MEDS: Ipratropium Bromide Inhaler INH SCH ×6 (03:00→21:49)
[2019-09-02] MEDS: Albuterol 90mcg Inhaler 8gm INH SCH ×6 (03:00→21:49)
[2019-09-02 04:00] VITALS: BP 126/60
[2019-09-02] MEDS: Aztreonam Inj 1 GM in D5W 55 ML IVPB SCH ×3 (05:06→21:48)
[2019-09-02] MEDS: NovoLOG Insulin Flexpen SUBQ SCH ×7 (06:21→22:01)
--- NOTE | 2019-09-02 07:25 | General Progress Note ---
Assessment/Plan Problem List: (1) Pneumonia ICD Codes: J18.9 - Pneumonia, unspecified organism SNOMED: 474047360, 306870366 (2) Suspected COVID-19 virus infection ICD Codes: Z20.828 - Contact with and (suspected) exposure to other viral communicable diseases SNOMED: 109573710 (3) Diabetes mellitus ICD Codes: E11.9 - Type 2 diabetes mellitus without complications SNOMED: 97335691 Status: unchanged Assessment/Plan: increase Levemir to 36 units bid increase Novolog to 15 units ac tid continue Novolog sliding scale ac / hs Subjective Allergies: Coded Allergies: ASPIRIN (Verified Allergy, Unknown, 11/22/17) PENICILLINS (Verified Allergy, Unknown, 11/22/17) SULFAMETHOXAZOLE (Verified Allergy, Unknown, 11/22/17) TRIMETHOPRIM (Verified Allergy, Unknown, 11/22/17) Subjective events noted - interval notes reviewed glucose values on higher side Item Value Date Time Bedside Blood Glucose 234 mg/dl H 09/02/19 0622 Bedside Blood Glucose 213 mg/dl H 09/01/19 1807 Bedside Blood Glucose 250 mg/dl H 09/01/19 1234 Bedside Blood Glucose 272 mg/dl H 09/01/19 0958 Bedside Blood Glucose 192 mg/dl H 09/01/19 0630 Objective Last 24 Hour Vital Signs Date Time Temp Pulse Resp B/P (MAP) Pulse Ox O2 Delivery O2 Flow Rate FiO2 09/02/19 06:20 127/75 09/02/19 04:00 97.7 60 20 126/60 (82) 97 09/02/19 04:00 50 09/02/19 00:24 127/87 09/02/19 00:00 98.8 88 19 127/74 (91) 97 09/02/19 00:00 59 09/01/19 21:36 Nasal Cannula 2.0 09/01/19 21:03 78 129/87 09/01/19 20:00 60 09/01/19 20:00 98.7 79 20 129/74 (92) 97 79 09/01/19 18:05 135/82 09/01/19 16:00 97.9 62 20 135/82 (99) 93 09/01/19 15:43 60 09/01/19 12:35 140/78 09/01/19 12:00 98.0 65 20 140/78 (98) 93 09/01/19 11:57 69 09/01/19 09:49 72 141/70 09/01/19 09:00 Nasal Cannula 2.0 09/01/19 08:00 98.3 72 17 147/70 (95) 93 09/01/19 07:37 79 Intake and Output 09/01/19 09/02/19 19:00 07:00 # Voids 2 Laboratory Tests 09/01/19 07:33: White Blood Count 3.9L, Red Blood Count 3.57L, Hemoglobin 9.7L, Hematocrit 29.6L , Mean Corpuscular Volume 83, Mean Corpuscular Hemoglobin 27.2, Mean Corpuscular Hemoglobin Concent 32.8, Red Cell Distribution Width 13.4, Platelet Count 243, Mean Platelet Volume 5.3L, Neutrophils (%) (Auto) 68.3, Lymphocytes ( %) (Auto) 18.7L, Monocytes (%) (Auto) 9.3, Eosinophils (%) (Auto) 3.0, Basophils (%) (Auto) 0.6, Sodium Level 144, Potassium Level 3.8, Chloride Level 109H, Carbon Dioxide Level 26, Anion Gap 9, Blood Urea Nitrogen 15, Creatinine 1.3, Estimat Glomerular Filtration Rate 54.7, Glucose Level 200H, Calcium Level 8.4L 09/02/19 06:14: White Blood Count [Pending], Red Blood Count [Pending], Hemoglobin [Pending], Hematocrit [Pending], Mean Corpuscular Volume [Pending], Mean Corpuscular Hemoglobin [Pending], Mean Corpuscular Hemoglobin Concent [Pending], Red Cell Distribution Width [Pending], Platelet Count [Pending], Mean Platelet Volume [ Pending], Neutrophils (%) (Auto) [Pending], Lymphocytes (%) (Auto) [Pending], Monocytes (%) (Auto) [Pending], Eosinophils (%) (Auto) [Pending], Basophils (%) (Auto) [Pending], Sodium Level [Pending], Potassium Level [Pending], Chloride Level [Pending], Carbon Dioxide Level [Pending], Blood Urea Nitrogen [Pending], Creatinine [Pending], Estimat Glomerular Filtration Rate [Pending], Glucose Level [Pending], Calcium Level [Pending], Ferritin [Pending], Total Bilirubin [ Pending], Aspartate Amino Transf (AST/SGOT) [Pending], Alanine Aminotransferase (ALT/SGPT) [Pending], Alkaline Phosphatase [Pending], C-Reactive Protein, Quantitative [Pending], Total Protein [Pending], Albumin [Pending], Globulin [ Pending] Height (Feet): 5 Height (Inches): 10.00 Weight (Pounds): 210 General Appearance: no apparent distress Neck: normal alignment Cardiovascular: normal rate Respiratory/Chest: lungs clear Abdomen: normal bowel sounds Pelvis: normal external exam Objective Current Medications Medications (Trade) Dose Ordered Sig/Jayden Route PRN Reason Start Time Stop Time Status Last Admin Dose Admin Acetaminophen (Tylenol) 650 mg Q4H PRN ORAL MILD/TEMP 08/29/19 05:30 09/28/19 05:29 08/30/19 21:29 Albuterol Sulfate (Proventil MDI) 1 puff Q4HRT INH 08/29/19 07:00 11/27/19 06:59 09/01/19 18:06 Ascorbic Acid (Vitamin C) 500 mg DAILY ORAL 08/29/19 09:00 09/28/19 08:59 09/01/19 09:49 Atorvastatin Calcium (Lipitor) 10 mg BEDTIME ORAL 08/29/19 21:00 11/27/19 20:59 09/01/19 21:03 Aztreonam 1 gm/ Dextrose 55 ml @ 110 mls/hr Q8HR IVPB 08/29/19 06:00 09/05/19 05:59 09/02/19 05:06 Bisacodyl (Dulcolax) 10 mg DAILY PRN RECTAL Constipation 08/29/19 05:30 11/27/19 05:29 Brimonidine Tartrate (Alphagan) 1 drop TID BOTH EYES 08/29/19 09:00 11/27/19 08:59 09/01/19 18:06 Dextrose (Dextrose 50%) 25 ml Q30M PRN IV Hypoglycemia 08/29/19 18:00 11/27/19 17:59 Dextrose (Dextrose 50%) 50 ml Q30M PRN IV Hypoglycemia 08/29/19 18:00 11/27/19 17:59 Docusate Sodium (Colace) 100 mg DAILY ORAL 08/29/19 09:00 09/28/19 08:59 09/01/19 09:49 Escitalopram Oxalate (Lexapro) 10 mg DAILY ORAL 08/29/19 09:00 09/28/19 08:59 09/01/19 09:49 Gabapentin (Neurontin) 400 mg THREE TIMES A DAY ORAL 08/29/19 09:00 09/28/19 08:59 09/01/19 18:05 Hydralazine HCl (Apresoline) 25 mg EVERY 6 HOURS ORAL 08/29/19 06:00 11/27/19 05:59 09/02/19 06:20 Insulin Aspart (NovoLOG) BEFORE MEALS AND HS SUBQ 08/29/19 16:30 11/27/19 16:29 09/02/19 06:21 Insulin Aspart (NovoLOG) 10 units NOVOTIAC SUBQ 08/31/19 11:50 11/27/19 17:59 09/02/19 06:22 Insulin Detemir (Levemir) 30 units BID SUBQ 08/31/19 18:00 11/27/19 17:59 09/01/19 18:07 Ipratropium [place] (Atrovent Inh) 1 puffs Q4HRT INH 08/29/19 07:00 09/28/19 06:59 09/01/19 18:06 Lorazepam (Ativan) 1 mg Q6H PRN ORAL For Anxiety 08/30/19 04:30 09/06/19 04:29 Magnesium Hydroxide (Mom) 30 ml QHS PRN ORAL CONSTIPATION 08/29/19 05:30 09/28/19 05:29 Metoprolol Tartrate (Lopressor) 25 mg EVERY 12 HOURS ORAL 08/29/19 09:00 11/27/19 08:59 09/01/19 21:03 Multivitamins (Multivitamins) 1 tab DAILY ORAL 08/29/19 09:00 09/28/19 08:59 09/01/19 09:48 Olanzapine (ZyPREXA) 5 mg BID ORAL 08/30/19 09:00 10/14/19 08:59 09/01/19 18:05 Pantoprazole (Protonix) 40 mg EVERY 12 HOURS ORAL 08/29/19 09:00 09/28/19 08:59 09/01/19 21:03 Polyethylene Glycol (Miralax) 17 gm DAILY ORAL 08/29/19 09:00 09/28/19 08:59 09/01/19 09:48 Sennosides (Senokot) 17.2 mg QHS ORAL 08/29/19 21:00 09/28/19 20:59 09/01/19 21:03 Sodium Chloride 1,000 ml @ 75 mls/hr [id number] IV 08/29/19 06:00 09/28/19 05:59 09/01/19 13:31 Sodium Phosphate (Fleet's Sodium Phosl Enema) 133 ml EVERY OTHER DAY PRN RECTAL Constipation 08/29/19 05:30 09/28/19 05:29 Tamsulosin HCl (Flomax) 0.4 mg QHS ORAL 08/29/19 21:00 09/28/19 20:59 09/01/19 21:03 Temazepam (Restoril) 15 mg BEDTIME PRN ORAL Insomnia 08/29/19 05:30 09/05/19 05:29 Vancomycin HCl (Vanco rx to dose) 1 ea DAILY PRN MISC Per rx protocol 08/29/19 01:30 09/28/19 01:29 Vancomycin/Sodium Chloride 275 ml @ 137.5 mls/ hr Q24H IVPB 08/29/19 15:00 09/03/19 14:59 09/01/19 15:52 Zinc Sulfate (Zinc Sulfate) 220 mg DAILY ORAL 08/29/19 09:00 11/27/19 08:59 09/01/19 09:50 Juve Cordova MD September 02, 2019 07:25
[2019-09-02 07:48] LABS: BASOPHILS % (AUTO) 0.7 % (0.0-2.0); EOSINOPHILS % (AUTO) 6.5 % (0.0-3.0); HEMATOCRIT 30.3 % (42.0-52.0); HEMOGLOBIN 9.8 G/DL (14.2-18.0); MEAN CORPUSCULAR VOLUME 83 FL (80-99); MONOCYTES % (AUTO) 6.6 % (1.0-10.0); NEUTROPHILS % (AUTO) 67.2 % (45.0-75.0); PLATELET COUNT 263 K/UL (150-450); RED BLOOD COUNT 3.65 M/UL (4.70-6.10); RED CELL DISTRIBUTION WIDTH 13.1 % (11.6-14.8); WHITE BLOOD COUNT 4.6 K/UL (4.8-10.8)
[2019-09-02 07:56] LABS: ALANINE AMINOTRANSFERASE 32 U/L (12-78); ALBUMIN 2.4 G/DL (3.4-5.0); ALBUMIN/GLOBULIN RATIO 0.5 (1.0-2.7); ALKALINE PHOSPHATASE 88 U/L (46-116); ANION GAP 7 mmol/L (5-15); ASPARTATE AMINO TRANSFERASE 30 U/L (15-37); BILIRUBIN,TOTAL 0.2 MG/DL (0.2-1.0); BLOOD UREA NITROGEN 18 mg/dL (7-18); CALCIUM 8.8 MG/DL (8.5-10.1); CARBON DIOXIDE 25 MMOL/L (21-32); CHLORIDE 109 MMOL/L (98-107); CREATININE 1.4 MG/DL (0.55-1.30); FERRITIN 290 NG/ML (8-388); POTASSIUM 4.3 MMOL/L (3.5-5.1); SODIUM 141 MMOL/L (136-145)
[2019-09-02 08:00] VITALS: BP 149/75
--- NOTE | 2019-09-02 09:15 | Consultation ---
DATE OF CONSULTATION: 08/30/2019 INITIAL PSYCHIATRIC EVALUATION CONSULTING PHYSICIAN: Deborah Sosa MD. HISTORY OF PRESENT ILLNESS: This is a 68-year-old male patient who came in with fever, hypoxia, suspected COVID-19 infection. This patient has altered mental status, confusion, and decline in cognition below his baseline. He is from [facility] and he has a diagnosis of paranoid schizophrenia, so he has got some confusion, altered mental status, and decline in cognition below his baseline as well as mood lability. That is why, his attending has requested daily psychiatric consultation. When I saw him in his room today, his chief complaint was "I'm I don't have any psychiatric problems, take me off of all psych meds, so doesn't matter." made nonsensical statements, so the patient seems to have very poor insight into his psychiatric illness and extremely upset and irritable. PAST MEDICAL HISTORY: He has history of polyneuropathy, BPH, weakness, diabetes, glaucoma, GERD. ALLERGIES: To aspirin, penicillin, sulfamethoxazole, and trimethoprim. PSYCHOTROPIC MEDICATIONS ON ADMISSION: Per chart. He normally takes Lexapro 10 mg daily and he also takes Risperdal 0.5 mg twice a day and Neurontin 400 mg three times a day. SOCIAL HISTORY: He denies drug and alcohol use. The patient lives in [facility]. Financially supported by [facility] and Medicare. FAMILY PSYCHIATRIC HISTORY: He denies any family psych history. PSYCHIATRIC HISTORY: Paranoid schizophrenia. He has had multiple psychiatric admissions. PAIN ASSESSMENT: 07/08 pain. DEVELOPMENTAL PROBLEMS: Denies. STRENGTHS: Motivated to get better and he has a place to live. WEAKNESSES: Impulsive. Minimal support system. MENTAL STATUS EXAMINATION: This is a 68-year-old male. Appearance is disheveled. Attitude, irritable and agitated. Affect, guarded and restricted. Intellect poor because he does not know current events and does not know the last four presidents. Mood, depressed and anxious. Motor activity, psychomotor agitation. Attention span is poor because he cannot do serial sevens or spell world backwards. Orientation x2, to person and place, not to time or situation. Speech is pressured and nonsensical. Thought process, disorganized and illogical. Thought content, auditory hallucinations and paranoid delusions. Perception is poor because he has perceptual disturbances such as auditory hallucinations and paranoid delusions. Abstract reasoning is poor because he does not understand proverbs. He only has concrete thinking. Insight is poor because he does not recognize having any psychiatric disorder. Judgment is poor because he does not accept consequences for his actions . DIAGNOSES: 1. Paranoid schizophrenia with acute exacerbation. 2. Secondary medical, CVA, BPH, polyneuropathy, glaucoma, GERD, fever, hypoxia, and suspect COVID-19. 3. Psychosocial stressors, financial. Functional impairment is mild. PLAN: Treat the patient with medication regimen consisting of discontinue Risperdal and replace it with Zyprexa 5 mg twice a day. We will continue his Lexapro 10 mg daily and Neurontin at 400 mg three times a day. Provided him with 20 minutes of cognitive behavioral therapy to help him identify his automatic negative thoughts and help him convert negative thoughts to more positive thoughts to reduce depression, anxiety, and mood lability. Chart was reviewed. Discussed with staff. The patient was seen and assessed at bedside. Deborah Sosa M.D. DR: SWATHI JOB#: [id number] CC:
--- NOTE | 2019-09-02 09:15 | Consultation ---
DATE OF CONSULTATION: 08/29/2019 ENDOCRINOLOGY CONSULTATION REFERRING PHYSICIAN: Joe Salinas D.O. REASON FOR CONSULTATION: Diabetes management. HISTORY OF PRESENT ILLNESS: The patient is a 68-year-old male who is known to me from previous admission . He presented to the hospital on with elevated glucose. COVID19 infection is suspected ALLERGIES TO MEDICATIONS: Aspirin, penicillin, and Bactrim. REVIEW OF SYSTEMS: As per HPI. SOCIAL HISTORY: from [facility] PAST MEDICAL HISTORY: 1. Diabetes. 2. Anemia. 3. Chronic kidney disease. 4. CVA. 6. COPD. 7. Hypertension. PAST SURGICAL HISTORY: Unknown. PHYSICAL EXAMINATION: VITAL SIGNS: Blood pressure is 100/62, temperature of 98.8, pulse 94, respiratory rate 18. HEENT: Pupils are equal and reactive to light. Sclerae are anicteric. NECK: No JVD. HEART: Regular. LUNGS: Clear. LABORATORY VALUES: WBC 5.7, [id number]. hematocrit 35.7, platelets 270. Sodium 138, potassium 4.5, chloride 102, bicarb 22, BUN 30, creatinine 1.6, glucose at 331. CRP of 4.6 with LDH of 314. DIAGNOSES: 1. Diabetes, out of control. 2. Rule out COVID. 3. Hypertension. 4. History of CVA. PLAN: 1. The patient is on high-dose insulin. Start Levemir 40 units b.i.d. + Novolo 20 units ac tid 2. Continue NovoLog sliding scale ac / hs 3. Hypoglycemia protocol in order Juve Cordova M.D. DR: JAMAAL JOB#: [id number] CC: KAREEM
[2019-09-02] MEDS: Brimonidine 0.2% Opth Sol BOTH EYES SCH ×3 (09:26→17:02)
[2019-09-02] MEDS: Miralax 17gm pkt ORAL SCH (09:27)
[2019-09-02] MEDS: Docusate 100mg cap ORAL SCH (09:27)
[2019-09-02] MEDS: Ascorbic Acid 500mg tab ORAL SCH (09:28)
[2019-09-02] MEDS: Zinc Sulfate 220mg cap ORAL SCH (09:28)
[2019-09-02] MEDS: Levemir Flexpen SUBQ SCH ×2 (09:30→17:02)
--- NOTE | 2019-09-02 09:59 | General Progress Note ---
Assessment/Plan Problem List: (1) Hypoxia ICD Codes: R09.02 - Hypoxemia SNOMED: 702857210, 879109878 (2) Fever ICD Codes: R50.9 - Fever, unspecified SNOMED: 613663810 (3) Diabetes mellitus ICD Codes: E11.9 - Type 2 diabetes mellitus without complications SNOMED: 07052710 (4) Morbid obesity ICD Codes: E66.01 - Morbid (severe) obesity due to excess calories SNOMED: 334913104 (5) Decubitus skin ulcer ICD Codes: L89.90 - Pressure ulcer of unspecified site, unspecified stage SNOMED: 719266270 (6) SOB (shortness of breath) ICD Codes: R06.02 - Shortness of breath SNOMED: 036915939 (7) Suspected COVID-19 virus infection ICD Codes: Z20.828 - Contact with and (suspected) exposure to other viral communicable diseases SNOMED: 003826064 Status: unchanged Assessment/Plan: pt diet o2 pulm tx prn abx per id cbc bmp am aru eval Subjective Constitutional: Reports: weakness Allergies: Coded Allergies: ASPIRIN (Verified Allergy, Unknown, 11/22/17) PENICILLINS (Verified Allergy, Unknown, 11/22/17) SULFAMETHOXAZOLE (Verified Allergy, Unknown, 11/22/17) TRIMETHOPRIM (Verified Allergy, Unknown, 11/22/17) Uncoded Allergies: Plastic tape (Allergy, Severe, Blister , 09/02/19) All Systems: reviewed and negative except above Subjective o2nc sleepy Objective Last 24 Hour Vital Signs Date Time Temp Pulse Resp B/P (MAP) Pulse Ox O2 Delivery O2 Flow Rate FiO2 09/02/19 09:27 67 149/75 09/02/19 08:00 98.1 67 20 149/75 (99) 98 09/02/19 06:20 127/75 09/02/19 04:00 97.7 60 20 126/60 (82) 97 09/02/19 04:00 50 09/02/19 00:24 127/87 09/02/19 00:00 98.8 88 19 127/74 (91) 97 09/02/19 00:00 59 09/01/19 21:36 Nasal Cannula 2.0 09/01/19 21:03 78 129/87 5/3/20 20:00 60 09/01/19 20:00 98.7 79 20 129/74 (92) 97 79 09/01/19 18:05 135/82 09/01/19 16:00 97.9 62 20 135/82 (99) 93 09/01/19 15:43 60 09/01/19 12:35 140/78 09/01/19 12:00 98.0 65 20 140/78 (98) 93 09/01/19 11:57 69 Intake and Output 09/01/19 09/02/19 19:00 07:00 # Voids 2 Laboratory Tests 09/02/19 06:14: White Blood Count 4.6L, Red Blood Count 3.65L, Hemoglobin 9.8L, Hematocrit 30.3L , Mean Corpuscular Volume 83, Mean Corpuscular Hemoglobin 27.0, Mean Corpuscular Hemoglobin Concent 32.5, Red Cell Distribution Width 13.1, Platelet Count 263, Mean Platelet Volume 5.5L, Neutrophils (%) (Auto) 67.2, Lymphocytes ( %) (Auto) 19.0L, Monocytes (%) (Auto) 6.6, Eosinophils (%) (Auto) 6.5H, Basophils (%) (Auto) 0.7, Sodium Level 141, Potassium Level 4.3, Chloride Level 109H, Carbon Dioxide Level 25, Anion Gap 7, Blood Urea Nitrogen 18, Creatinine 1.4H, Estimat Glomerular Filtration Rate 50.2, Glucose Level 252H, Calcium Level 8.8, Ferritin 290, Total Bilirubin 0.2, Aspartate Amino Transf (AST/SGOT) 30, Alanine Aminotransferase (ALT/SGPT) 32, Alkaline Phosphatase 88, C-Reactive Protein, Quantitative 5.9H, Total Protein 7.7, Albumin 2.4L, Globulin 5.3, Albumin/Globulin Ratio 0.5L Height (Feet): 5 Height (Inches): 10.00 Weight (Pounds): 210 General Appearance: lethargic EENT: normal ENT inspection Neck: normal alignment Cardiovascular: normal rate, regular rhythm Respiratory/Chest: no respiratory distress, no accessory muscle use Extremities: normal inspection Skin: normal pigmentation Joe Salinas DO September 02, 2019 09:59
--- NOTE | 2019-09-02 10:57 | Diagnostic Imaging Report ---
Indication: Cough Technique: One view of the chest Comparison: 08/28/2019 Findings: Increased hazy and interstitial infiltrate is seen in the right upper lobe. There may be some interstitial infiltrate at the left lung base as well. The heart size is upper limits normal. Impression: Increasing right upper lobe interstitial and hazy infiltrates. Questionable increasing interstitial disease of the left lung base.
--- NOTE | 2019-09-02 11:40 | Pulmonology Progress Note ---
Assessment/Plan Assessment/Plan IMPRESSION: 1. Possible pneumonia. 2. Hypoxia. 3. Possible COVID-19 infection. 4. Multiple medical problems consisting of COPD, hyperlipidemia, psych disorder, and diabetes mellitus. DISCUSSION: Continue medications. Hold off on adding any further steroids. Continue pulmonary hygiene. Broad-spectrum antibiotics per ID. Continue oxygen. I will follow carefully. Adama Spangler M.D. Subjective Interval Events: None new Constitutional: Reports: no symptoms; Denies: fever, chills, fatigue, anorexia , drenching sweats, other HEENT: Repors: no symptoms; Denies: visual change, discharge, earache, hearing change, coryza, congestion, post-nasal drip, dysphagia, other Respiratory: Reports: dry cough, shortness of breath Cardiovascular: Reports: no symptoms Gastrointestinal/Abdominal: Reports: no symptoms Genitourinary: Reports: no symptoms Allergies: Coded Allergies: ASPIRIN (Verified Allergy, Unknown, 11/22/17) PENICILLINS (Verified Allergy, Unknown, 11/22/17) SULFAMETHOXAZOLE (Verified Allergy, Unknown, 11/22/17) TRIMETHOPRIM (Verified Allergy, Unknown, 11/22/17) Uncoded Allergies: Plastic tape (Allergy, Severe, Blister , 09/02/19) All Systems: reviewed and negative except above Objective Last 24 Hour Vital Signs Date Time Temp Pulse Resp B/P (MAP) Pulse Ox O2 Delivery O2 Flow Rate FiO2 09/02/19 09:27 67 149/75 09/02/19 09:00 Nasal Cannula 2.0 09/02/19 08:00 60 09/02/19 08:00 98.1 67 20 149/75 (99) 98 09/02/19 06:20 127/75 09/02/19 04:00 97.7 60 20 126/60 (82) 97 09/02/19 04:00 50 09/02/19 00:24 127/87 09/02/19 00:00 98.8 88 19 127/74 (91) 97 09/02/19 00:00 59 09/01/19 21:36 Nasal Cannula 2.0 09/01/19 21:03 78 129/87 09/01/19 20:00 60 09/01/19 20:00 98.7 79 20 129/74 (92) 97 79 09/01/19 18:05 135/82 09/01/19 16:00 97.9 62 20 135/82 (99) 93 09/01/19 15:43 60 09/01/19 12:35 140/78 09/01/19 12:00 98.0 65 20 140/78 (98) 93 09/01/19 11:57 69 Intake and Output 09/01/19 09/02/19 19:00 07:00 # Voids 2 General Appearance: no acute distress HEENT: normocephalic Respiratory/Chest: chest wall non-tender, lungs clear Cardiovascular: normal peripheral pulses Abdomen: normal bowel sounds Extremities: no cyanosis Laboratory Tests 09/02/19 06:14: White Blood Count 4.6L, Red Blood Count 3.65L, Hemoglobin 9.8L, Hematocrit 30.3L , Mean Corpuscular Volume 83, Mean Corpuscular Hemoglobin 27.0, Mean Corpuscular Hemoglobin Concent 32.5, Red Cell Distribution Width 13.1, Platelet Count 263, Mean Platelet Volume 5.5L, Neutrophils (%) (Auto) 67.2, Lymphocytes ( %) (Auto) 19.0L, Monocytes (%) (Auto) 6.6, Eosinophils (%) (Auto) 6.5H, Basophils (%) (Auto) 0.7, Sodium Level 141, Potassium Level 4.3, Chloride Level 109H, Carbon Dioxide Level 25, Anion Gap 7, Blood Urea Nitrogen 18, Creatinine 1.4H, Estimat Glomerular Filtration Rate 50.2, Glucose Level 252H, Calcium Level 8.8, Ferritin 290, Total Bilirubin 0.2, Aspartate Amino Transf (AST/SGOT) 30, Alanine Aminotransferase (ALT/SGPT) 32, Alkaline Phosphatase 88, C-Reactive Protein, Quantitative 5.9H, Total Protein 7.7, Albumin 2.4L, Globulin 5.3, Albumin/Globulin Ratio 0.5L Current Medications Medications (Trade) Dose Ordered Sig/Jayden Route PRN Reason Start Time Stop Time Status Last Admin Dose Admin Acetaminophen (Tylenol) 650 mg Q4H PRN ORAL MILD/TEMP 08/29/19 05:30 09/28/19 05:29 08/30/19 21:29 Albuterol Sulfate (Proventil MDI) 1 puff Q4HRT INH 08/29/19 07:00 11/27/19 06:59 09/01/19 18:06 Ascorbic Acid (Vitamin C) 500 mg DAILY ORAL 08/29/19 09:00 09/28/19 08:59 09/02/19 09:28 Atorvastatin Calcium (Lipitor) 10 mg BEDTIME ORAL 08/29/19 21:00 11/27/19 20:59 09/01/19 21:03 Aztreonam 1 gm/ Dextrose 55 ml @ 110 mls/hr Q8HR IVPB 08/29/19 06:00 09/05/19 05:59 09/02/19 05:06 Bisacodyl (Dulcolax) 10 mg DAILY PRN RECTAL Constipation 08/29/19 05:30 11/27/19 05:29 Brimonidine Tartrate (Alphagan) 1 drop TID BOTH EYES 08/29/19 09:00 11/27/19 08:59 09/02/19 09:26 Dextrose (Dextrose 50%) 25 ml Q30M PRN IV Hypoglycemia 08/29/19 18:00 11/27/19 17:59 Dextrose (Dextrose 50%) 50 ml Q30M PRN IV Hypoglycemia 08/29/19 18:00 11/27/19 17:59 Docusate Sodium (Colace) 100 mg DAILY ORAL 08/29/19 09:00 09/28/19 08:59 09/02/19 09:27 Escitalopram Oxalate (Lexapro) 10 mg DAILY ORAL 08/29/19 09:00 09/28/19 08:59 09/02/19 09:27 Gabapentin (Neurontin) 400 mg THREE TIMES A DAY ORAL 08/29/19 09:00 09/28/19 08:59 09/02/19 09:28 Hydralazine HCl (Apresoline) 25 mg EVERY 6 HOURS ORAL 08/29/19 06:00 11/27/19 05:59 09/02/19 06:20 Insulin Aspart (NovoLOG) BEFORE MEALS AND HS SUBQ 08/29/19 16:30 11/27/19 16:29 09/02/19 06:21 Insulin Aspart (NovoLOG) 15 units NOVOTIAC SUBQ 09/02/19 11:50 11/27/19 17:59 Insulin Detemir (Levemir) 36 units BID SUBQ 09/02/19 09:00 11/27/19 17:59 09/02/19 09:30 Ipratropium [place] (Atrovent Inh) 1 puffs Q4HRT INH 08/29/19 07:00 09/28/19 06:59 09/01/19 18:06 Lorazepam (Ativan) 1 mg Q6H PRN ORAL For Anxiety 08/30/19 04:30 09/06/19 04:29 Magnesium Hydroxide (Mom) 30 ml QHS PRN ORAL CONSTIPATION 08/29/19 05:30 09/28/19 05:29 Metoprolol Tartrate (Lopressor) 25 mg EVERY 12 HOURS ORAL 08/29/19 09:00 11/27/19 08:59 09/02/19 09:27 Multivitamins (Multivitamins) 1 tab DAILY ORAL 08/29/19 09:00 09/28/19 08:59 09/02/19 09:27 Olanzapine (ZyPREXA) 5 mg BID ORAL 08/30/19 09:00 10/14/19 08:59 09/02/19 09:28 Pantoprazole (Protonix) 40 mg EVERY 12 HOURS ORAL 08/29/19 09:00 09/28/19 08:59 09/02/19 09:28 Polyethylene Glycol (Miralax) 17 gm DAILY ORAL 08/29/19 09:00 09/28/19 08:59 09/02/19 09:27 Sennosides (Senokot) 17.2 mg QHS ORAL 08/29/19 21:00 09/28/19 20:59 09/01/19 21:03 Sodium Chloride 1,000 ml @ 75 mls/hr [id number] IV 08/29/19 06:00 09/28/19 05:59 09/01/19 13:31 Sodium Phosphate (Fleet's Sodium Phosl Enema) 133 ml EVERY OTHER DAY PRN RECTAL Constipation 08/29/19 05:30 09/28/19 05:29 Tamsulosin HCl (Flomax) 0.4 mg QHS ORAL 08/29/19 21:00 09/28/19 20:59 09/01/19 21:03 Temazepam (Restoril) 15 mg BEDTIME PRN ORAL Insomnia 08/29/19 05:30 09/05/19 05:29 Vancomycin HCl (Vanco rx to dose) 1 ea DAILY PRN MISC Per rx protocol 08/29/19 01:30 09/28/19 01:29 Vancomycin/Sodium Chloride 275 ml @ 137.5 mls/ hr Q24H IVPB 08/29/19 15:00 09/03/19 14:59 09/01/19 15:52 Zinc Sulfate (Zinc Sulfate) 220 mg DAILY ORAL 08/29/19 09:00 11/27/19 08:59 09/02/19 09:28 Adama Spangler MD September 02, 2019 11:40
[2019-09-02 12:00] VITALS: BP 122/66
--- NOTE | 2019-09-02 12:58 | Infectious Diseases Prog Note ---
Assessment/Plan Assessment/Plan Assessment: Viral syndrome- likely COVID19 (resident at [place] with large outbreak) PNA- at 2L NC -09/01 CXR: Increasing right upper lobe interstitial and hazy infiltrates. Questionable increasing interstitial disease of the left lung base. -08/27 CXR: Suspect faint hazy peripheral infiltrate in the inferior right upper lobe. Left basilar atelectasis sp cx normal resp valentin -Bcx NTD Low grade fever; SP Leukopenia Mild AST elevation, SP UTI -u/a wbc tntc; ucx >100k S.ureus Dm2 anemia CKD HLD hx of GIB Anxiety schizoaffective disorder seizure disorder Dementia CVA w/ residual R side deficit BPH COPD HTN morbid obesity DNR/DNI status SNF resident ([facility]) Plan: -Dc IV Vancomycin #/ - Aztreonam #5/5 -08/28 SP Cefepime x1 -f/u cx -Monitor CBC/CMP, temperaturse -COVID19 testing and isolation (result still pending; sent on 08/27) -aspiration precautions Thank you for consulting [facility]. Will continue to follow along wiht you. Subjective Allergies: Coded Allergies: ASPIRIN (Verified Allergy, Unknown, 11/22/17) PENICILLINS (Verified Allergy, Unknown, 11/22/17) SULFAMETHOXAZOLE (Verified Allergy, Unknown, 11/22/17) TRIMETHOPRIM (Verified Allergy, Unknown, 11/22/17) Uncoded Allergies: Plastic tape (Allergy, Severe, Blister , 09/02/19) Subjective afebrile at 48hrs Bcx NTD 2l NC COVID still pending (was sent on 08/27) Objective Vital Signs Last 24 Hour Vital Signs Date Time Temp Pulse Resp B/P (MAP) Pulse Ox O2 Delivery O2 Flow Rate FiO2 09/02/19 12:15 122/66 09/02/19 12:00 97.7 62 20 122/66 (84) 96 09/02/19 12:00 63 09/02/19 09:27 67 149/75 09/02/19 09:00 Nasal Cannula 2.0 09/02/19 08:00 60 09/02/19 08:00 98.1 67 20 149/75 (99) 98 09/02/19 06:20 127/75 09/02/19 04:00 97.7 60 20 126/60 (82) 97 09/02/19 04:00 50 09/02/19 00:24 127/87 09/02/19 00:00 98.8 88 19 127/74 (91) 97 09/02/19 00:00 59 09/01/19 21:36 Nasal Cannula 2.0 09/01/19 21:03 78 129/87 09/01/19 20:00 60 09/01/19 20:00 98.7 79 20 129/74 (92) 97 79 09/01/19 18:05 135/82 09/01/19 16:00 97.9 62 20 135/82 (99) 93 09/01/19 15:43 60 Height (Feet): 5 Height (Inches): 10.00 Weight (Pounds): 210 Objective not examined to limit COVID19 exposure Laboratory Tests Test 09/02/19 06:14 White Blood Count 4.6 K/UL (4.8-10.8) L Red Blood Count 3.65 M/UL (4.70-6.10) L Hemoglobin 9.8 G/DL (14.2-18.0) L Hematocrit 30.3 % (42.0-52.0) L Mean Corpuscular Volume 83 FL (80-99) Mean Corpuscular Hemoglobin 27.0 PG (27.0-31.0) Mean Corpuscular Hemoglobin Concent 32.5 G/DL (32.0-36.0) Red Cell Distribution Width 13.1 % (11.6-14.8) Platelet Count 263 K/UL (150-450) Mean Platelet Volume 5.5 FL (6.5-10.1) L Neutrophils (%) (Auto) 67.2 % (45.0-75.0) Lymphocytes (%) (Auto) 19.0 % (20.0-45.0) L Monocytes (%) (Auto) 6.6 % (1.0-10.0) Eosinophils (%) (Auto) 6.5 % (0.0-3.0) H Basophils (%) (Auto) 0.7 % (0.0-2.0) Sodium Level 141 MMOL/L (136-145) Potassium Level 4.3 MMOL/L (3.5-5.1) Chloride Level 109 MMOL/L (98-107) H Carbon Dioxide Level 25 MMOL/L (21-32) Anion Gap 7 mmol/L (5-15) Blood Urea Nitrogen 18 mg/dL (7-18) Creatinine 1.4 MG/DL (0.55-1.30) H Estimat Glomerular Filtration Rate 50.2 mL/min (>60) Glucose Level 252 MG/DL (74-106) H Calcium Level 8.8 MG/DL (8.5-10.1) Ferritin 290 NG/ML (8-388) Total Bilirubin 0.2 MG/DL (0.2-1.0) Aspartate Amino Transf (AST/SGOT) 30 U/L (15-37) Alanine Aminotransferase (ALT/SGPT) 32 U/L (12-78) Alkaline Phosphatase 88 U/L (46-116) C-Reactive Protein, Quantitative 5.9 mg/dL (0.00-0.90) H Total Protein 7.7 G/DL (6.4-8.2) Albumin 2.4 G/DL (3.4-5.0) L Globulin 5.3 g/dL Albumin/Globulin Ratio 0.5 (1.0-2.7) L Current Medications Medications (Trade) Dose Ordered Sig/Jayden Route PRN Reason Start Time Stop Time Status Last Admin Dose Admin Acetaminophen (Tylenol) 650 mg Q4H PRN ORAL MILD/TEMP 08/29/19 05:30 09/28/19 05:29 08/30/19 21:29 Albuterol Sulfate (Proventil MDI) 1 puff Q4HRT INH 08/29/19 07:00 11/27/19 06:59 09/02/19 11:00 Ascorbic Acid (Vitamin C) 500 mg DAILY ORAL 08/29/19 09:00 09/28/19 08:59 09/02/19 09:28 Atorvastatin Calcium (Lipitor) 10 mg BEDTIME ORAL 08/29/19 21:00 11/27/19 20:59 09/01/19 21:03 Aztreonam 1 gm/ Dextrose 55 ml @ 110 mls/hr Q8HR IVPB 08/29/19 06:00 09/05/19 05:59 09/02/19 05:06 Bisacodyl (Dulcolax) 10 mg DAILY PRN RECTAL Constipation 08/29/19 05:30 11/27/19 05:29 Brimonidine Tartrate (Alphagan) 1 drop TID BOTH EYES 08/29/19 09:00 11/27/19 08:59 09/02/19 12:15 Dextrose (Dextrose 50%) 25 ml Q30M PRN IV Hypoglycemia 08/29/19 18:00 11/27/19 17:59 Dextrose (Dextrose 50%) 50 ml Q30M PRN IV Hypoglycemia 08/29/19 18:00 11/27/19 17:59 Docusate Sodium (Colace) 100 mg DAILY ORAL 08/29/19 09:00 09/28/19 08:59 09/02/19 09:27 Escitalopram Oxalate (Lexapro) 10 mg DAILY ORAL 08/29/19 09:00 09/28/19 08:59 09/02/19 09:27 Gabapentin (Neurontin) 400 mg THREE TIMES A DAY ORAL 08/29/19 09:00 09/28/19 08:59 09/02/19 12:15 Hydralazine HCl (Apresoline) 25 mg EVERY 6 HOURS ORAL 08/29/19 06:00 11/27/19 05:59 09/02/19 12:15 Insulin Aspart (NovoLOG) BEFORE MEALS AND HS SUBQ 08/29/19 16:30 11/27/19 16:29 09/02/19 11:30 Insulin Aspart (NovoLOG) 15 units NOVOTIAC SUBQ 09/02/19 11:50 11/27/19 17:59 09/02/19 11:50 Insulin Detemir (Levemir) 36 units BID SUBQ 09/02/19 09:00 11/27/19 17:59 09/02/19 09:30 Ipratropium [place] (Atrovent Inh) 1 puffs Q4HRT INH 08/29/19 07:00 09/28/19 06:59 09/02/19 11:00 Lorazepam (Ativan) 1 mg Q6H PRN ORAL For Anxiety 08/30/19 04:30 09/06/19 04:29 Magnesium Hydroxide (Mom) 30 ml QHS PRN ORAL CONSTIPATION 08/29/19 05:30 09/28/19 05:29 Metoprolol Tartrate (Lopressor) 25 mg EVERY 12 HOURS ORAL 08/29/19 09:00 11/27/19 08:59 09/02/19 09:27 Multivitamins (Multivitamins) 1 tab DAILY ORAL 08/29/19 09:00 09/28/19 08:59 09/02/19 09:27 Olanzapine (ZyPREXA) 5 mg BID ORAL 08/30/19 09:00 10/14/19 08:59 09/02/19 09:28 Pantoprazole (Protonix) 40 mg EVERY 12 HOURS ORAL 08/29/19 09:00 09/28/19 08:59 09/02/19 09:28 Polyethylene Glycol (Miralax) 17 gm DAILY ORAL 08/29/19 09:00 09/28/19 08:59 09/02/19 09:27 Sennosides (Senokot) 17.2 mg QHS ORAL 08/29/19 21:00 09/28/19 20:59 09/01/19 21:03 Sodium Chloride 1,000 ml @ 75 mls/hr [id number] IV 08/29/19 06:00 09/28/19 05:59 09/01/19 13:31 Sodium Phosphate (Fleet's Sodium Phosl Enema) 133 ml EVERY OTHER DAY PRN RECTAL Constipation 08/29/19 05:30 09/28/19 05:29 Tamsulosin HCl (Flomax) 0.4 mg QHS ORAL 08/29/19 21:00 09/28/19 20:59 09/01/19 21:03 Temazepam (Restoril) 15 mg BEDTIME PRN ORAL Insomnia 08/29/19 05:30 09/05/19 05:29 Vancomycin HCl (Vanco rx to dose) 1 ea DAILY PRN MISC Per rx protocol 08/29/19 01:30 09/28/19 01:29 Vancomycin/Sodium Chloride 275 ml @ 137.5 mls/ hr Q24H IVPB 08/29/19 15:00 09/03/19 14:59 09/01/19 15:52 Zinc Sulfate (Zinc Sulfate) 220 mg DAILY ORAL 08/29/19 09:00 11/27/19 08:59 09/02/19 09:28 Vandana Rucker M.D. September 02, 2019 12:58
--- NOTE | 2019-09-02 14:40 | Surgery Progress Note ---
Surgery Progress Note Subjective Additional Comments no acute events disruptive labs noted micro reviewed cxr reviewed Objective Last 24 Hour Vital Signs Date Time Temp Pulse Resp B/P (MAP) Pulse Ox O2 Delivery O2 Flow Rate FiO2 09/02/19 12:15 122/66 09/02/19 12:00 97.7 62 20 122/66 (84) 96 09/02/19 12:00 63 09/02/19 09:27 67 149/75 09/02/19 09:00 Nasal Cannula 2.0 09/02/19 08:00 60 09/02/19 08:00 98.1 67 20 149/75 (99) 98 09/02/19 06:20 127/75 09/02/19 04:00 97.7 60 20 126/60 (82) 97 09/02/19 04:00 50 09/02/19 00:24 127/87 09/02/19 00:00 98.8 88 19 127/74 (91) 97 09/02/19 00:00 59 09/01/19 21:36 Nasal Cannula 2.0 09/01/19 21:03 78 129/87 09/01/19 20:00 60 09/01/19 20:00 98.7 79 20 129/74 (92) 97 79 09/01/19 18:05 135/82 09/01/19 16:00 97.9 62 20 135/82 (99) 93 09/01/19 15:43 60 I&O Intake and Output 09/01/19 09/02/19 19:00 07:00 # Voids 2 Dressing: other Wound: other Drains: other Cardiovascular: RSR, other Respiratory: decreased breath sounds Abdomen: soft, non-tender, present bowel sounds Extremities: no tenderness, no cyanosis Laboratory Tests Test 09/02/19 06:14 White Blood Count 4.6 K/UL (4.8-10.8) L Red Blood Count 3.65 M/UL (4.70-6.10) L Hemoglobin 9.8 G/DL (14.2-18.0) L Hematocrit 30.3 % (42.0-52.0) L Mean Corpuscular Volume 83 FL (80-99) Mean Corpuscular Hemoglobin 27.0 PG (27.0-31.0) Mean Corpuscular Hemoglobin Concent 32.5 G/DL (32.0-36.0) Red Cell Distribution Width 13.1 % (11.6-14.8) Platelet Count 263 K/UL (150-450) Mean Platelet Volume 5.5 FL (6.5-10.1) L Neutrophils (%) (Auto) 67.2 % (45.0-75.0) Lymphocytes (%) (Auto) 19.0 % (20.0-45.0) L Monocytes (%) (Auto) 6.6 % (1.0-10.0) Eosinophils (%) (Auto) 6.5 % (0.0-3.0) H Basophils (%) (Auto) 0.7 % (0.0-2.0) Sodium Level 141 MMOL/L (136-145) Potassium Level 4.3 MMOL/L (3.5-5.1) Chloride Level 109 MMOL/L (98-107) H Carbon Dioxide Level 25 MMOL/L (21-32) Anion Gap 7 mmol/L (5-15) Blood Urea Nitrogen 18 mg/dL (7-18) Creatinine 1.4 MG/DL (0.55-1.30) H Estimat Glomerular Filtration Rate 50.2 mL/min (>60) Glucose Level 252 MG/DL (74-106) H Calcium Level 8.8 MG/DL (8.5-10.1) Ferritin 290 NG/ML (8-388) Total Bilirubin 0.2 MG/DL (0.2-1.0) Aspartate Amino Transf (AST/SGOT) 30 U/L (15-37) Alanine Aminotransferase (ALT/SGPT) 32 U/L (12-78) Alkaline Phosphatase 88 U/L (46-116) C-Reactive Protein, Quantitative 5.9 mg/dL (0.00-0.90) H Total Protein 7.7 G/DL (6.4-8.2) Albumin 2.4 G/DL (3.4-5.0) L Globulin 5.3 g/dL Albumin/Globulin Ratio 0.5 (1.0-2.7) L Plan Problems: (1) Fever Assessment & Plan: 68-year-old male admitted for fevers. Currently afebrile hemodynamic stable. Labs noted as above. Chest x-ray with Body habitus limits evaluation. Inspiration is suboptimal. Patient is rotated to the right. There is suggestion of a focal hazy peripheral infiltrate in the inferior right upper lobe. There is some atelectasis at the left lung base. The heart size is upper limits of normal. Impression: Suspect faint hazy peripheral infiltrate in the inferior right upper lobe. possible COVID pending test fevers unlikely related to sacrum will follow with recs abx as per ID local wound care trend labs okay for diet as tolerated (2) Morbid obesity (3) Decubitus skin ulcer Assessment & Plan: Pt presented on admission with three Full Thickness pressure injuries,each in close proximity L Sacrum. Wounds were measured as one (L)1.7cm x (W)2.1cm x (D)0.2cm. Wounds have a punctured appearance and are beefy- red and moist. No odor or exudate noted. Periwound ,extending to R and L gluteal cheeks,skin is maroon in colour with marginal erythema(L)8.5cm x (W) 10cm but is not indurated However, pt yells when site is minimally palpated. Non -blanching erythema noted to upper sacral region. Scrotum is erythematous . Stable dry eschar noted to dorsal R 2nd metatarsal. Historical scar with hyperpigmentation noted to L heel. Pt confirmed Hx. of having pressure injuries to both heels. Both heels are boggy but blanchable. Pt is receiving oxygen via nasal cannula and clefts of both R and L ears are erythematous. Oxygen tubing padded with Gauze and tubing maintained loosely around ears. Tx.Plan: Cleanse wounds sacrum with Saline. Apply Therahoney. Apply Moisture Barrier Paste periwound. Cover with Optifoam drsg. Change Daily and prn. Apply Moisture Barrier Paste to Scrotum with each Incontinence care. Apply Cavilon Skin Barrier to both heels and Malleoli. Cover each site with Optifoam drsg. Change every 7 days and prn. Apply Betadine to R 2nd metatarsal Daily and prn. Reposition at least every 2hours or as tolerated. Off-load heels with pillow. APM/IRIS mattress overlay. DAILY ESTIMATED NEEDS: Needs based on Obese, wound DM/ 78kg abw 20-25 kcals/kg [id number] total kcals 1.25-2 g protein/kg 98-156 g total protein 25-30 mL/kg 1086-2904 total fluid mLs NUTRITION DIAGNOSIS: 1) Increased protein intake needs R/T wound healing as evidenced by admitted w/ 3 open wound stage III linear wounds near sacral region. 2) Altered nutrition related lab values R/T diabetes as evidenced by POC glu (421, 364), 1+ U glu. CURRENT DIET:CCHO MED, mech soft chopped PO DIET RECOMMENDATIONS: CCHO LOW w/ DOUBLE PROTEINS (texture per DATABASE SECURITY EXPERT) ADDITIONAL RECOMMENDATIONS: 1) Recalibrated bed scale wt for accurate CBW 2) Wound healing: Continue MVI + VIT C+ [id number] MARZENA BID 3) Monitor BGs closely for hypoglycemia and hyperglycemia : on long acting + short acting insulin 4) Consider DAT[employer]ASE SECURITY EXPERT eval for appropriate texture (4) Suspected COVID-19 virus infection [facility] September 02, 2019 14:40
[2019-09-02 16:00] VITALS: BP 113/53
--- NOTE | 2019-09-02 16:59 | Progress Note ---
DATE: 09/02/2019 SUBJECTIVE: This patient is 68 years old. He has pneumonia, rule out COVID-19, hypoxia, dehydration, decubitus ulcer, anemia, altered mental status, decline in cognition below baseline. That is why, this patient does require daily psychiatric consultation. MENTAL STATUS EXAMINATION: This is a 68-year-old male. Appearance is disheveled. Attitude, irritable and agitated. Affect, guarded and restricted. Intellect poor. Mood, depressed and anxious. Motor activity, psychomotor agitation. Insight and judgment is poor. DIAGNOSIS: Major depressive disorder, mild, recurrent with psychotic features, rule out dementia with psychosis. PLAN: Treat this patient with a medication regimen of Neurontin at a dose of 400 mg 3 times a day, Lexapro 10 mg daily, Ativan 1 mg every 6 hours p.r.n. anxiety and agitation, and Zyprexa 5 mg twice a day. Twenty minutes of cognitive behavioral therapy to help him identify his automatic negative thoughts, help him convert his negative thoughts to more positive thoughts to reduce depression, anxiety, and mood lability. Chart reviewed. Discussed with staff. Seen and assessed in his room. Deborah Sosa M.D. DR: NACHO JOB#: [id number] CC:
[2019-09-02 20:00] VITALS: BP 147/70
[2019-09-02] MEDS: Sennosides 8.6mg tab ORAL SCH (21:47)
[2019-09-02] MEDS: Tamsulosin 0.4mg cap ORAL SCH (21:48)
[2019-09-03] VITALS: BP 143/72
[2019-09-03] MEDS: HydrALAZINE 25mg tab ORAL SCH ×4 (00:56→18:11)
[2019-09-03] MEDS: Albuterol 90mcg Inhaler 8gm INH SCH ×4 (03:00→15:00)
[2019-09-03] MEDS: Ipratropium Bromide Inhaler INH SCH ×4 (03:00→15:00)
[2019-09-03 04:00] VITALS: BP 134/74
[2019-09-03] MEDS: Aztreonam Inj 1 GM in D5W 55 ML IVPB SCH (06:02)
[2019-09-03] MEDS: NovoLOG Insulin Flexpen SUBQ SCH ×6 (06:11→16:50)
--- NOTE | 2019-09-03 07:23 | General Progress Note ---
Assessment/Plan Problem List: (1) Pneumonia ICD Codes: J18.9 - Pneumonia, unspecified organism SNOMED: 866580362, 455722315 (2) Suspected COVID-19 virus infection ICD Codes: Z20.828 - Contact with and (suspected) exposure to other viral communicable diseases SNOMED: 118125214 (3) Diabetes mellitus ICD Codes: E11.9 - Type 2 diabetes mellitus without complications SNOMED: 98491986 Status: unchanged Assessment/Plan: continue Levemir 36 units bid continue Novolog 15 units ac tid continue Novolog sliding scale ac / hs Subjective Allergies: Coded Allergies: ASPIRIN (Verified Allergy, Unknown, 11/22/17) PENICILLINS (Verified Allergy, Unknown, 11/22/17) SULFAMETHOXAZOLE (Verified Allergy, Unknown, 11/22/17) TRIMETHOPRIM (Verified Allergy, Unknown, 11/22/17) Uncoded Allergies: Plastic tape (Allergy, Severe, Blister , 09/02/19) All Systems: reviewed and negative except above Subjective events noted - interval notes reviewed glucose values on higher side - refused Novolog this morning Item Value Date Time Bedside Blood Glucose 166 mg/dl H 09/03/19 0630 Bedside Blood Glucose 277 mg/dl H 09/02/19 2201 Bedside Blood Glucose 253 mg/dl H 09/02/19 1702 Bedside Blood Glucose 210 mg/dl H 09/02/19 1150 Bedside Blood Glucose 234 mg/dl H 09/02/19 0930 Bedside Blood Glucose 234 mg/dl H 09/02/19 0622 Objective Last 24 Hour Vital Signs Date Time Temp Pulse Resp B/P (MAP) Pulse Ox O2 Delivery O2 Flow Rate FiO2 09/03/19 06:02 134/74 09/03/19 04:00 97.2 65 18 134/74 (94) 96 09/03/19 04:00 72 09/03/19 00:56 143/72 09/03/19 00:00 97.9 69 18 143/72 (95) 97 09/03/19 00:00 71 09/02/19 21:48 65 113/64 09/02/19 21:00 Nasal Cannula 4.0 09/02/19 20:00 65 09/02/19 20:00 98.3 64 17 147/70 (95) 97 09/02/19 17:01 113/53 09/02/19 16:00 98.1 61 20 113/53 (73) 96 09/02/19 16:00 59 09/02/19 12:15 122/66 09/02/19 12:00 97.7 62 20 122/66 (84) 96 09/02/19 12:00 63 09/02/19 09:27 67 149/75 09/02/19 09:00 Nasal Cannula 2.0 09/02/19 08:00 60 09/02/19 08:00 98.1 67 20 149/75 (99) 98 Intake and Output 09/02/19 09/03/19 19:00 07:00 Intake Total 1285 ml 1040 ml Balance 1285 ml 1040 ml Intake Oral 760 ml 480 ml IV Total 525 ml 560 ml # Voids 2 2 Height (Feet): 5 Height (Inches): 10.00 Weight (Pounds): 210 General Appearance: no apparent distress Neck: normal alignment Cardiovascular: normal rate Respiratory/Chest: lungs clear Abdomen: normal bowel sounds Objective Current Medications Medications (Trade) Dose Ordered Sig/Jayden Route PRN Reason Start Time Stop Time Status Last Admin Dose Admin Acetaminophen (Tylenol) 650 mg Q4H PRN ORAL MILD/TEMP 08/29/19 05:30 09/28/19 05:29 08/30/19 21:29 Albuterol Sulfate (Proventil MDI) 1 puff Q4HRT INH 08/29/19 07:00 11/27/19 06:59 09/03/19 06:12 Ascorbic Acid (Vitamin C) 500 mg DAILY ORAL 08/29/19 09:00 09/28/19 08:59 09/02/19 09:28 Atorvastatin Calcium (Lipitor) 10 mg BEDTIME ORAL 08/29/19 21:00 11/27/19 20:59 09/02/19 21:48 Aztreonam 1 gm/ Dextrose 55 ml @ 110 mls/hr Q8HR IVPB 08/29/19 06:00 09/05/19 05:59 09/03/19 06:02 Bisacodyl (Dulcolax) 10 mg DAILY PRN RECTAL Constipation 08/29/19 05:30 11/27/19 05:29 Brimonidine Tartrate (Alphagan) 1 drop TID BOTH EYES 08/29/19 09:00 11/27/19 08:59 5/4/20 17:02 Dextrose (Dextrose 50%) 25 ml Q30M PRN IV Hypoglycemia 08/29/19 18:00 11/27/19 17:59 Dextrose (Dextrose 50%) 50 ml Q30M PRN IV Hypoglycemia 08/29/19 18:00 11/27/19 17:59 Docusate Sodium (Colace) 100 mg DAILY ORAL 08/29/19 09:00 09/28/19 08:59 09/02/19 09:27 Escitalopram Oxalate (Lexapro) 10 mg DAILY ORAL 08/29/19 09:00 09/28/19 08:59 09/02/19 09:27 Gabapentin (Neurontin) 400 mg THREE TIMES A DAY ORAL 08/29/19 09:00 09/28/19 08:59 09/02/19 17:02 Hydralazine HCl (Apresoline) 25 mg EVERY 6 HOURS ORAL 08/29/19 06:00 11/27/19 05:59 09/03/19 06:02 Insulin Aspart (NovoLOG) BEFORE MEALS AND HS SUBQ 08/29/19 16:30 11/27/19 16:29 09/02/19 22:01 Insulin Aspart (NovoLOG) 15 units NOVOTIAC SUBQ 09/02/19 11:50 11/27/19 17:59 09/02/19 16:46 Insulin Detemir (Levemir) 36 units BID SUBQ 09/02/19 09:00 11/27/19 17:59 09/02/19 17:02 Ipratropium [place] (Atrovent Inh) 1 puffs Q4HRT INH 08/29/19 07:00 09/28/19 06:59 09/03/19 06:12 Lorazepam (Ativan) 1 mg Q6H PRN ORAL For Anxiety 08/30/19 04:30 09/06/19 04:29 Magnesium Hydroxide (Mom) 30 ml QHS PRN ORAL CONSTIPATION 08/29/19 05:30 09/28/19 05:29 Metoprolol Tartrate (Lopressor) 25 mg EVERY 12 HOURS ORAL 08/29/19 09:00 11/27/19 08:59 09/02/19 21:48 Multivitamins (Multivitamins) 1 tab DAILY ORAL 08/29/19 09:00 09/28/19 08:59 5/4/20 09:27 Olanzapine (ZyPREXA) 5 mg BID ORAL 08/30/19 09:00 10/14/19 08:59 09/02/19 17:02 Pantoprazole (Protonix) 40 mg EVERY 12 HOURS ORAL 08/29/19 09:00 09/28/19 08:59 09/02/19 21:48 Polyethylene Glycol (Miralax) 17 gm DAILY ORAL 08/29/19 09:00 09/28/19 08:59 09/02/19 09:27 Sennosides (Senokot) 17.2 mg QHS ORAL 08/29/19 21:00 09/28/19 20:59 09/02/19 21:47 Sodium Chloride 1,000 ml @ 75 mls/hr [id number] IV 08/29/19 06:00 09/28/19 05:59 09/03/19 06:11 Sodium Phosphate (Fleet's Sodium Phosl Enema) 133 ml EVERY OTHER DAY PRN RECTAL Constipation 08/29/19 05:30 09/28/19 05:29 Tamsulosin HCl (Flomax) 0.4 mg QHS ORAL 08/29/19 21:00 09/28/19 20:59 09/02/19 21:48 Temazepam (Restoril) 15 mg BEDTIME PRN ORAL Insomnia 08/29/19 05:30 09/05/19 05:29 Zinc Sulfate (Zinc Sulfate) 220 mg DAILY ORAL 08/29/19 09:00 11/27/19 08:59 09/02/19 09:28 Juve Cordova MD September 03, 2019 07:23
[2019-09-03 08:00] VITALS: BP 134/74
[2019-09-03] MEDS: Docusate 100mg cap ORAL SCH (08:27)
[2019-09-03] MEDS: Ascorbic Acid 500mg tab ORAL SCH (08:27)
[2019-09-03] MEDS: Zinc Sulfate 220mg cap ORAL SCH (08:27)
[2019-09-03] MEDS: Miralax 17gm pkt ORAL SCH (08:27)
[2019-09-03] MEDS: Brimonidine 0.2% Opth Sol BOTH EYES SCH ×3 (08:41→18:12)
[2019-09-03] MEDS: Levemir Flexpen SUBQ SCH ×2 (08:48→18:09)
[2019-09-03 09:09] LABS: BASOPHILS % (AUTO) 0.4 % (0.0-2.0); EOSINOPHILS % (AUTO) 3.6 % (0.0-3.0); HEMATOCRIT 28.7 % (42.0-52.0); HEMOGLOBIN 9.8 G/DL (14.2-18.0); LYMPHOCYTES % (AUTO) 13.1 % (20.0-45.0); MEAN CORPUSCULAR VOLUME 81 FL (80-99); NEUTROPHILS % (AUTO) 76.9 % (45.0-75.0); PLATELET COUNT 314 K/UL (150-450); RED BLOOD COUNT 3.54 M/UL (4.70-6.10); RED CELL DISTRIBUTION WIDTH 13.2 % (11.6-14.8)
[2019-09-03 09:21] LABS: ANION GAP 11 mmol/L (5-15); BLOOD UREA NITROGEN 15 mg/dL (7-18); CALCIUM 9.1 MG/DL (8.5-10.1); CARBON DIOXIDE 23 MMOL/L (21-32); CHLORIDE 108 MMOL/L (98-107); CREATININE 1.3 MG/DL (0.55-1.30); POTASSIUM 3.9 MMOL/L (3.5-5.1); SODIUM 142 MMOL/L (136-145)
[2019-09-03 12:00] VITALS: BP 135/75
--- NOTE | 2019-09-03 12:46 | General Progress Note ---
Assessment/Plan Problem List: (1) Hypoxia ICD Codes: R09.02 - Hypoxemia SNOMED: 687178739, 100313904 (2) Fever ICD Codes: R50.9 - Fever, unspecified SNOMED: 531164892 (3) Diabetes mellitus ICD Codes: E11.9 - Type 2 diabetes mellitus without complications SNOMED: 44735752 (4) Morbid obesity ICD Codes: E66.01 - Morbid (severe) obesity due to excess calories SNOMED: 754323285 (5) Decubitus skin ulcer ICD Codes: L89.90 - Pressure ulcer of unspecified site, unspecified stage SNOMED: 960741347 (6) SOB (shortness of breath) ICD Codes: R06.02 - Shortness of breath SNOMED: 585668373 (7) Suspected COVID-19 virus infection ICD Codes: Z20.828 - Contact with and (suspected) exposure to other viral communicable diseases SNOMED: 594017783 Status: unchanged Assessment/Plan: pt diet o2 pulm tx prn abx per id cbc bmp am Subjective Constitutional: Reports: weakness Allergies: Coded Allergies: ASPIRIN (Verified Allergy, Unknown, 11/22/17) PENICILLINS (Verified Allergy, Unknown, 11/22/17) SULFAMETHOXAZOLE (Verified Allergy, Unknown, 11/22/17) TRIMETHOPRIM (Verified Allergy, Unknown, 11/22/17) Uncoded Allergies: Plastic tape (Allergy, Severe, Blister , 09/02/19) All Systems: reviewed and negative except above Subjective o2nc sleepy Objective Last 24 Hour Vital Signs Date Time Temp Pulse Resp B/P (MAP) Pulse Ox O2 Delivery O2 Flow Rate FiO2 09/03/19 12:10 134/74 09/03/19 08:27 72 134/74 09/03/19 06:02 134/74 09/03/19 04:00 97.2 65 18 134/74 (94) 96 09/03/19 04:00 72 09/03/19 00:56 143/72 09/03/19 00:00 97.9 69 18 143/72 (95) 97 09/03/19 00:00 71 09/02/19 21:48 65 113/64 09/02/19 21:00 Nasal Cannula 4.0 09/02/19 20:00 65 09/02/19 20:00 98.3 64 17 147/70 (95) 97 09/02/19 17:01 113/53 09/02/19 16:00 98.1 61 20 113/53 (73) 96 09/02/19 16:00 59 Intake and Output 09/02/19 09/03/19 18:59 06:59 Intake Total 1285 ml 1040 ml Balance 1285 ml 1040 ml Intake Oral 760 ml 480 ml IV Total 525 ml 560 ml # Voids 2 2 Laboratory Tests 09/03/19 08:25: White Blood Count 9.0#, Red Blood Count 3.54L, Hemoglobin 9.8L, Hematocrit 28.7L , Mean Corpuscular Volume 81, Mean Corpuscular Hemoglobin 27.8, Mean Corpuscular Hemoglobin Concent 34.3, Red Cell Distribution Width 13.2, Platelet Count 314, Mean Platelet Volume 5.6L, Neutrophils (%) (Auto) 76.9H, Lymphocytes (%) (Auto) 13.1L, Monocytes (%) (Auto) 6.0, Eosinophils (%) (Auto) 3.6H, Basophils (%) (Auto) 0.4, Sodium Level 142, Potassium Level 3.9, Chloride Level 108H, Carbon Dioxide Level 23, Anion Gap 11, Blood Urea Nitrogen 15, Creatinine 1.3, Estimat Glomerular Filtration Rate 54.7, Glucose Level 179H, Calcium Level 9.1 Height (Feet): 5 Height (Inches): 10.00 Weight (Pounds): 210 General Appearance: lethargic EENT: normal ENT inspection Neck: normal alignment Cardiovascular: normal rate, regular rhythm Respiratory/Chest: no respiratory distress, no accessory muscle use Extremities: normal inspection Skin: normal pigmentation Joe Salinas DO September 03, 2019 12:46
--- NOTE | 2019-09-03 13:59 | Infectious Diseases Prog Note ---
Assessment/Plan Assessment/Plan Assessment: Viral syndrome- 2ry to COVID19 (resident at [facility] with large outbreak) PNA- at 2L [place] -09/01 CXR: Increasing right upper lobe interstitial and hazy infiltrates. Questionable increasing interstitial disease of the left lung base. -08/27 CXR: Suspect faint hazy peripheral infiltrate in the inferior right upper lobe. Left basilar atelectasis sp cx normal resp valentin -Bcx NTD Low grade fever; SP Leukopenia, SP Mild AST elevation, SP UTI -u/a wbc tntc; ucx >100k S.ureus Dm2 anemia CKD HLD hx of GIB Anxiety schizoaffective disorder seizure disorder Dementia CVA w/ residual R side deficit BPH COPD HTN morbid obesity DNR/DNI status SNF resident ([facility]) Plan: - Dc Aztreonam #/ and monitor off abx -09/01 SP IV Vancomycin #6 -08/28 SP Cefepime x1 -f/u cx -Monitor CBC/CMP, temperaturse -COVID19 isolation -aspiration precautions -CXR am Thank you for consulting [facility]. Will continue to follow along wiht you. Subjective Allergies: Coded Allergies: ASPIRIN (Verified Allergy, Unknown, 11/22/17) PENICILLINS (Verified Allergy, Unknown, 11/22/17) SULFAMETHOXAZOLE (Verified Allergy, Unknown, 11/22/17) TRIMETHOPRIM (Verified Allergy, Unknown, 11/22/17) Uncoded Allergies: Plastic tape (Allergy, Severe, Blister , 09/02/19) Subjective afebrile >48hrs Bcx Neg now at 4l NC COVID positive Objective Vital Signs Last 24 Hour Vital Signs Date Time Temp Pulse Resp B/P (MAP) Pulse Ox O2 Delivery O2 Flow Rate FiO2 09/03/19 12:10 134/74 09/03/19 08:27 72 134/74 09/03/19 06:02 134/74 09/03/19 04:00 97.2 65 18 134/74 (94) 96 09/03/19 04:00 72 09/03/19 00:56 143/72 09/03/19 00:00 97.9 69 18 143/72 (95) 97 09/03/19 00:00 71 09/02/19 21:48 65 113/64 09/02/19 21:00 Nasal Cannula 4.0 09/02/19 20:00 65 09/02/19 20:00 98.3 64 17 147/70 (95) 97 09/02/19 17:01 113/53 09/02/19 16:00 98.1 61 20 113/53 (73) 96 09/02/19 16:00 59 Height (Feet): 5 Height (Inches): 10.00 Weight (Pounds): 210 Objective not examined to limit COVID19 exposure Laboratory Tests Test 09/03/19 08:25 White Blood Count 9.0 K/UL (4.8-10.8) # Red Blood Count 3.54 M/UL (4.70-6.10) L Hemoglobin 9.8 G/DL (14.2-18.0) L Hematocrit 28.7 % (42.0-52.0) L Mean Corpuscular Volume 81 FL (80-99) Mean Corpuscular Hemoglobin 27.8 PG (27.0-31.0) Mean Corpuscular Hemoglobin Concent 34.3 G/DL (32.0-36.0) Red Cell Distribution Width 13.2 % (11.6-14.8) Platelet Count 314 K/UL (150-450) Mean Platelet Volume 5.6 FL (6.5-10.1) L Neutrophils (%) (Auto) 76.9 % (45.0-75.0) H Lymphocytes (%) (Auto) 13.1 % (20.0-45.0) L Monocytes (%) (Auto) 6.0 % (1.0-10.0) Eosinophils (%) (Auto) 3.6 % (0.0-3.0) H Basophils (%) (Auto) 0.4 % (0.0-2.0) Sodium Level 142 MMOL/L (136-145) Potassium Level 3.9 MMOL/L (3.5-5.1) Chloride Level 108 MMOL/L (98-107) H Carbon Dioxide Level 23 MMOL/L (21-32) Anion Gap 11 mmol/L (5-15) Blood Urea Nitrogen 15 mg/dL (7-18) Creatinine 1.3 MG/DL (0.55-1.30) Estimat Glomerular Filtration Rate 54.7 mL/min (>60) Glucose Level 179 MG/DL (74-106) H Calcium Level 9.1 MG/DL (8.5-10.1) Current Medications Medications (Trade) Dose Ordered Sig/Jayden Route PRN Reason Start Time Stop Time Status Last Admin Dose Admin Acetaminophen (Tylenol) 650 mg Q4H PRN ORAL MILD/TEMP 08/29/19 05:30 09/28/19 05:29 08/30/19 21:29 Albuterol Sulfate (Proventil MDI) 1 puff Q4HRT INH 08/29/19 07:00 11/27/19 06:59 09/03/19 11:00 Ascorbic Acid (Vitamin C) 500 mg DAILY ORAL 08/29/19 09:00 09/28/19 08:59 09/03/19 08:27 Atorvastatin Calcium (Lipitor) 10 mg BEDTIME ORAL 08/29/19 21:00 11/27/19 20:59 09/02/19 21:48 Aztreonam 1 gm/ Dextrose 55 ml @ 110 mls/hr Q8HR IVPB 08/29/19 06:00 09/05/19 05:59 09/03/19 06:02 Bisacodyl (Dulcolax) 10 mg DAILY PRN RECTAL Constipation 08/29/19 05:30 11/27/19 05:29 Brimonidine Tartrate (Alphagan) 1 drop TID BOTH EYES 08/29/19 09:00 11/27/19 08:59 09/03/19 12:11 Dextrose (Dextrose 50%) 25 ml Q30M PRN IV Hypoglycemia 08/29/19 18:00 11/27/19 17:59 Dextrose (Dextrose 50%) 50 ml Q30M PRN IV Hypoglycemia 08/29/19 18:00 11/27/19 17:59 Docusate Sodium (Colace) 100 mg DAILY ORAL 08/29/19 09:00 09/28/19 08:59 09/03/19 08:27 Escitalopram Oxalate (Lexapro) 10 mg DAILY ORAL 08/29/19 09:00 09/28/19 08:59 09/03/19 08:26 Gabapentin (Neurontin) 400 mg THREE TIMES A DAY ORAL 08/29/19 09:00 09/28/19 08:59 09/03/19 12:11 Hydralazine HCl (Apresoline) 25 mg EVERY 6 HOURS ORAL 08/29/19 06:00 11/27/19 05:59 09/03/19 12:10 Insulin Aspart (NovoLOG) BEFORE MEALS AND HS SUBQ 08/29/19 16:30 11/27/19 16:29 09/02/19 22:01 Insulin Aspart (NovoLOG) 15 units NOVOTIAC SUBQ 09/02/19 11:50 11/27/19 17:59 09/02/19 16:46 Insulin Detemir (Levemir) 36 units BID SUBQ 09/02/19 09:00 11/27/19 17:59 09/03/19 08:48 Ipratropium [place] (Atrovent Inh) 1 puffs Q4HRT INH 08/29/19 07:00 09/28/19 06:59 09/03/19 11:00 Lorazepam (Ativan) 1 mg Q6H PRN ORAL For Anxiety 08/30/19 04:30 09/06/19 04:29 Magnesium Hydroxide (Mom) 30 ml QHS PRN ORAL CONSTIPATION 08/29/19 05:30 09/28/19 05:29 Metoprolol Tartrate (Lopressor) 25 mg EVERY 12 HOURS ORAL 08/29/19 09:00 11/27/19 08:59 09/03/19 08:27 Multivitamins (Multivitamins) 1 tab DAILY ORAL 08/29/19 09:00 09/28/19 08:59 09/03/19 08:27 Olanzapine (ZyPREXA) 5 mg BID ORAL 08/30/19 09:00 10/14/19 08:59 09/03/19 08:27 Pantoprazole (Protonix) 40 mg EVERY 12 HOURS ORAL 08/29/19 09:00 09/28/19 08:59 09/03/19 08:27 Polyethylene Glycol (Miralax) 17 gm DAILY ORAL 08/29/19 09:00 09/28/19 08:59 09/03/19 08:27 Sennosides (Senokot) 17.2 mg QHS ORAL 08/29/19 21:00 09/28/19 20:59 09/02/19 21:47 Sodium Chloride 1,000 ml @ 75 mls/hr [id number] IV 08/29/19 06:00 09/28/19 05:59 09/03/19 06:11 Sodium Phosphate (Fleet's Sodium Phosl Enema) 133 ml EVERY OTHER DAY PRN RECTAL Constipation 08/29/19 05:30 09/28/19 05:29 Tamsulosin HCl (Flomax) 0.4 mg QHS ORAL 08/29/19 21:00 09/28/19 20:59 09/02/19 21:48 Temazepam (Restoril) 15 mg BEDTIME PRN ORAL Insomnia 08/29/19 05:30 09/05/19 05:29 Zinc Sulfate (Zinc Sulfate) 220 mg DAILY ORAL 08/29/19 09:00 11/27/19 08:59 09/03/19 08:27 Vandana Rucker M.D. September 03, 2019 13:59
--- NOTE | 2019-09-03 15:41 | Surgery Progress Note ---
Surgery Progress Note Subjective Symptoms: improved, tolerating diet, voiding well, passing flatus Additional Comments wbc improved afebrile HD stable Objective Last 24 Hour Vital Signs Date Time Temp Pulse Resp B/P (MAP) Pulse Ox O2 Delivery O2 Flow Rate FiO2 09/03/19 12:10 134/74 09/03/19 12:00 98.8 89 20 135/75 (95) 96 09/03/19 12:00 85 09/03/19 09:00 Nasal Cannula 4.0 09/03/19 08:27 72 134/74 09/03/19 08:00 85 09/03/19 08:00 98.8 95 22 134/74 (94) 96 09/03/19 06:02 134/74 09/03/19 04:00 97.2 65 18 134/74 (94) 96 09/03/19 04:00 72 09/03/19 00:56 143/72 09/03/19 00:00 97.9 69 18 143/72 (95) 97 09/03/19 00:00 71 09/02/19 21:48 65 113/64 09/02/19 21:00 Nasal Cannula 4.0 09/02/19 20:00 65 09/02/19 20:00 98.3 64 17 147/70 (95) 97 09/02/19 17:01 113/53 09/02/19 16:00 98.1 61 20 113/53 (73) 96 09/02/19 16:00 59 I&O Intake and Output 09/02/19 09/03/19 19:00 07:00 Intake Total 1285 ml 1040 ml Balance 1285 ml 1040 ml Intake Oral 760 ml 480 ml IV Total 525 ml 560 ml # Voids 2 2 Dressing: saturated Wound: clean Cardiovascular: RSR Respiratory: clear Abdomen: soft, non-tender, present bowel sounds Extremities: no edema, no tenderness, no cyanosis Laboratory Tests Test 09/03/19 08:25 White Blood Count 9.0 K/UL (4.8-10.8) # Red Blood Count 3.54 M/UL (4.70-6.10) L Hemoglobin 9.8 G/DL (14.2-18.0) L Hematocrit 28.7 % (42.0-52.0) L Mean Corpuscular Volume 81 FL (80-99) Mean Corpuscular Hemoglobin 27.8 PG (27.0-31.0) Mean Corpuscular Hemoglobin Concent 34.3 G/DL (32.0-36.0) Red Cell Distribution Width 13.2 % (11.6-14.8) Platelet Count 314 K/UL (150-450) Mean Platelet Volume 5.6 FL (6.5-10.1) L Neutrophils (%) (Auto) 76.9 % (45.0-75.0) H Lymphocytes (%) (Auto) 13.1 % (20.0-45.0) L Monocytes (%) (Auto) 6.0 % (1.0-10.0) Eosinophils (%) (Auto) 3.6 % (0.0-3.0) H Basophils (%) (Auto) 0.4 % (0.0-2.0) Sodium Level 142 MMOL/L (136-145) Potassium Level 3.9 MMOL/L (3.5-5.1) Chloride Level 108 MMOL/L (98-107) H Carbon Dioxide Level 23 MMOL/L (21-32) Anion Gap 11 mmol/L (5-15) Blood Urea Nitrogen 15 mg/dL (7-18) Creatinine 1.3 MG/DL (0.55-1.30) Estimat Glomerular Filtration Rate 54.7 mL/min (>60) Glucose Level 179 MG/DL (74-106) H Calcium Level 9.1 MG/DL (8.5-10.1) Plan Problems: (1) Fever Assessment & Plan: 68-year-old male admitted for fevers. Currently afebrile hemodynamic stable. Labs noted as above. Chest x-ray with Body habitus limits evaluation. Inspiration is suboptimal. Patient is rotated to the right. There is suggestion of a focal hazy peripheral infiltrate in the inferior right upper lobe. There is some atelectasis at the left lung base. The heart size is upper limits of normal. Impression: Suspect faint hazy peripheral infiltrate in the inferior right upper lobe. possible COVID pending test fevers unlikely related to sacrum will follow with recs abx as per ID local wound care trend labs okay for diet as tolerated improved resolving okay to d/c from surgical standpoint (2) Morbid obesity (3) Decubitus skin ulcer Assessment & Plan: Pt presented on admission with three Full Thickness pressure injuries,each in close proximity L Sacrum. Wounds were measured as one (L)1.7cm x (W)2.1cm x (D)0.2cm. Wounds have a punctured appearance and are beefy- red and moist. No odor or exudate noted. Periwound ,extending to R and L gluteal cheeks,skin is maroon in colour with marginal erythema(L)8.5cm x (W) 10cm but is not indurated However, pt yells when site is minimally palpated. Non -blanching erythema noted to upper sacral region. Scrotum is erythematous . Stable dry eschar noted to dorsal R 2nd metatarsal. Historical scar with hyperpigmentation noted to L heel. Pt confirmed Hx. of having pressure injuries to both heels. Both heels are boggy but blanchable. Pt is receiving oxygen via nasal cannula and clefts of both R and L ears are erythematous. Oxygen tubing padded with Gauze and tubing maintained loosely around ears. Tx.Plan: Cleanse wounds sacrum with Saline. Apply Therahoney. Apply Moisture Barrier Paste periwound. Cover with Optifoam drsg. Change Daily and prn. Apply Moisture Barrier Paste to Scrotum with each Incontinence care. Apply Cavilon Skin Barrier to both heels and Malleoli. Cover each site with Optifoam drsg. Change every 7 days and prn. Apply Betadine to R 2nd metatarsal Daily and prn. Reposition at least every 2hours or as tolerated. Off-load heels with pillow. APM/IRIS mattress overlay. DAILY ESTIMATED NEEDS: Needs based on Obese, wound DM/ 78kg abw 20-25 kcals/kg 5106-6274 total kcals 1.25-2 g protein/kg 98-156 g total protein 25-30 mL/kg 3681-3010 total fluid mLs NUTRITION DIAGNOSIS: 1) Increased protein intake needs R/T wound healing as evidenced by admitted w/ 3 open wound stage III linear wounds near sacral region. 2) Altered nutrition related lab values R/T diabetes as evidenced by POC glu (421, 364), 1+ U glu. 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
[2019-09-03 16:00] VITALS: BP 125/71
--- NOTE | 2019-09-03 16:17 | Pulmonology Progress Note ---
Assessment/Plan Assessment/Plan IMPRESSION: 1. Pneumonia. 2. Hypoxia. 3. Positive COVID-19 infection. 4. Multiple medical problems consisting of COPD, hyperlipidemia, psych disorder, and diabetes mellitus. DISCUSSION: Continue medications. Hold off on adding any further steroids. Continue pulmonary hygiene. Broad-spectrum antibiotics per ID. Continue oxygen. I will follow carefully. Adama Spangler M.D. Subjective Interval Events: None new Constitutional: Reports: no symptoms; Denies: fever, chills, fatigue, anorexia , drenching sweats, other HEENT: Repors: no symptoms; Denies: visual change, discharge, earache, hearing change, coryza, congestion, post-nasal drip, dysphagia, other Respiratory: Reports: dry cough, shortness of breath Cardiovascular: Reports: no symptoms Gastrointestinal/Abdominal: Reports: no symptoms Genitourinary: Reports: no symptoms Allergies: Coded Allergies: ASPIRIN (Verified Allergy, Unknown, 11/22/17) PENICILLINS (Verified Allergy, Unknown, 11/22/17) SULFAMETHOXAZOLE (Verified Allergy, Unknown, 11/22/17) TRIMETHOPRIM (Verified Allergy, Unknown, 11/22/17) Uncoded Allergies: Plastic tape (Allergy, Severe, Blister , 09/02/19) All Systems: reviewed and negative except above Objective Last 24 Hour Vital Signs Date Time Temp Pulse Resp B/P (MAP) Pulse Ox O2 Delivery O2 Flow Rate FiO2 09/03/19 12:10 134/74 09/03/19 12:00 98.8 89 20 135/75 (95) 96 09/03/19 12:00 85 09/03/19 09:00 Nasal Cannula 4.0 09/03/19 08:27 72 134/74 09/03/19 08:00 85 09/03/19 08:00 98.8 95 22 134/74 (94) 96 09/03/19 06:02 134/74 09/03/19 04:00 97.2 65 18 134/74 (94) 96 09/03/19 04:00 72 09/03/19 00:56 143/72 09/03/19 00:00 97.9 69 18 143/72 (95) 97 09/03/19 00:00 71 09/02/19 21:48 65 113/64 09/02/19 21:00 Nasal Cannula 4.0 09/02/19 20:00 65 09/02/19 20:00 98.3 64 17 147/70 (95) 97 09/02/19 17:01 113/53 Intake and Output 09/02/19 09/03/19 19:00 07:00 Intake Total 1285 ml 1040 ml Balance 1285 ml 1040 ml Intake Oral 760 ml 480 ml IV Total 525 ml 560 ml # Voids 2 2 General Appearance: no acute distress HEENT: normocephalic Respiratory/Chest: chest wall non-tender, lungs clear Cardiovascular: normal peripheral pulses Abdomen: normal bowel sounds Extremities: no cyanosis Laboratory Tests 09/03/19 08:25: White Blood Count 9.0#, Red Blood Count 3.54L, Hemoglobin 9.8L, Hematocrit 28.7L , Mean Corpuscular Volume 81, Mean Corpuscular Hemoglobin 27.8, Mean Corpuscular Hemoglobin Concent 34.3, Red Cell Distribution Width 13.2, Platelet Count 314, Mean Platelet Volume 5.6L, Neutrophils (%) (Auto) 76.9H, Lymphocytes (%) (Auto) 13.1L, Monocytes (%) (Auto) 6.0, Eosinophils (%) (Auto) 3.6H, Basophils (%) (Auto) 0.4, Sodium Level 142, Potassium Level 3.9, Chloride Level 108H, Carbon Dioxide Level 23, Anion Gap 11, Blood Urea Nitrogen 15, Creatinine 1.3, Estimat Glomerular Filtration Rate 54.7, Glucose Level 179H, Calcium Level 9.1 Current Medications Medications (Trade) Dose Ordered Sig/Jayden Route PRN Reason Start Time Stop Time Status Last Admin Dose Admin Acetaminophen (Tylenol) 650 mg Q4H PRN ORAL MILD/TEMP 08/29/19 05:30 09/28/19 05:29 08/30/19 21:29 Albuterol Sulfate (Proventil MDI) 1 puff Q4HRT INH 08/29/19 07:00 11/27/19 06:59 09/03/19 15:00 Ascorbic Acid (Vitamin C) 500 mg DAILY ORAL 08/29/19 09:00 09/28/19 08:59 09/03/19 08:27 Atorvastatin Calcium (Lipitor) 10 mg BEDTIME ORAL 08/29/19 21:00 11/27/19 20:59 09/02/19 21:48 Bisacodyl (Dulcolax) 10 mg DAILY PRN RECTAL Constipation 08/29/19 05:30 11/27/19 05:29 Brimonidine Tartrate (Alphagan) 1 drop TID BOTH EYES 08/29/19 09:00 11/27/19 08:59 09/03/19 12:11 Dextrose (Dextrose 50%) 25 ml Q30M PRN IV Hypoglycemia 08/29/19 18:00 11/27/19 17:59 Dextrose (Dextrose 50%) 50 ml Q30M PRN IV Hypoglycemia 08/29/19 18:00 11/27/19 17:59 Docusate Sodium (Colace) 100 mg DAILY ORAL 08/29/19 09:00 09/28/19 08:59 09/03/19 08:27 Escitalopram Oxalate (Lexapro) 10 mg DAILY ORAL 08/29/19 09:00 09/28/19 08:59 09/03/19 08:26 Gabapentin (Neurontin) 400 mg THREE TIMES A DAY ORAL 08/29/19 09:00 09/28/19 08:59 09/03/19 12:11 Hydralazine HCl (Apresoline) 25 mg EVERY 6 HOURS ORAL 08/29/19 06:00 11/27/19 05:59 09/03/19 12:10 Insulin Aspart (NovoLOG) BEFORE MEALS AND HS SUBQ 08/29/19 16:30 11/27/19 16:29 09/02/19 22:01 Insulin Aspart (NovoLOG) 15 units NOVOTIAC SUBQ 09/02/19 11:50 11/27/19 17:59 09/02/19 16:46 Insulin Detemir (Levemir) 36 units BID SUBQ 09/02/19 09:00 11/27/19 17:59 09/03/19 08:48 Ipratropium [place] (Atrovent Inh) 1 puffs Q4HRT INH 08/29/19 07:00 09/28/19 06:59 09/03/19 15:00 Lorazepam (Ativan) 1 mg Q6H PRN ORAL For Anxiety 5/1/20 04:30 09/06/19 04:29 Magnesium Hydroxide (Mom) 30 ml QHS PRN ORAL CONSTIPATION 08/29/19 05:30 09/28/19 05:29 Metoprolol Tartrate (Lopressor) 25 mg EVERY 12 HOURS ORAL 08/29/19 09:00 11/27/19 08:59 09/03/19 08:27 Multivitamins (Multivitamins) 1 tab DAILY ORAL 08/29/19 09:00 09/28/19 08:59 09/03/19 08:27 Olanzapine (ZyPREXA) 5 mg BID ORAL 08/30/19 09:00 10/14/19 08:59 09/03/19 08:27 Pantoprazole (Protonix) 40 mg EVERY 12 HOURS ORAL 08/29/19 09:00 09/28/19 08:59 09/03/19 08:27 Polyethylene Glycol (Miralax) 17 gm DAILY ORAL 08/29/19 09:00 09/28/19 08:59 09/03/19 08:27 Sennosides (Senokot) 17.2 mg QHS ORAL 08/29/19 21:00 09/28/19 20:59 09/02/19 21:47 Sodium Chloride 1,000 ml @ 75 mls/hr [id number] IV 08/29/19 06:00 09/28/19 05:59 09/03/19 06:11 Sodium Phosphate (Fleet's Sodium Phosl Enema) 133 ml EVERY OTHER DAY PRN RECTAL Constipation 08/29/19 05:30 09/28/19 05:29 Tamsulosin HCl (Flomax) 0.4 mg QHS ORAL 08/29/19 21:00 09/28/19 20:59 09/02/19 21:48 Temazepam (Restoril) 15 mg BEDTIME PRN ORAL Insomnia 08/29/19 05:30 09/05/19 05:29 Zinc Sulfate (Zinc Sulfate) 220 mg DAILY ORAL 08/29/19 09:00 11/27/19 08:59 09/03/19 08:27 Adama Spangler MD September 03, 2019 16:17
--- NOTE | 2019-09-03 16:45 | Progress Note ---
DATE: 09/03/2019 SUBJECTIVE: This is a 68-year-old male patient with pneumonia. He has got some confusion, some disorganized thought process, and decline in cognition below his baseline that is why, the attending has requested daily psychiatric consultation. MENTAL STATUS EXAMINATION: This is a 68-year-old male. Appearance is disheveled. Attitude, irritable and agitated. Affect, guarded and restricted. Intellect poor. Mood, depressed and anxious. Motor activity, psychomotor agitation. Insight and judgment is poor. DIAGNOSIS: Major depressive disorder, severe, recurrent with psychotic features, rule out dementia with psychosis. PLAN: Treat him with Zyprexa 5 mg twice a day, Lexapro 10 mg daily, Neurontin 400 mg three times a day, also Ativan at a dose of 1 mg every 6 hours p.r.n. anxiety and agitation. Chart reviewed and discussed with staff. Seen and assessed at bedside. Deborah Sosa M.D. DR: Rivka JOB#: [id number] CC:
[2019-09-03 18:11] VITALS: BP 125/71
--- NOTE | 2019-09-05 07:29 | Progress Note ---
DATE: 09/04/2019 PSYCHOTHERAPY CONSULTATION PROGRESS NOTE TREATING ATTENDING PHYSICIAN: Joe Salinas D.O. HISTORY OF PRESENT ILLNESS: The patient is a 68-year-old male patient with 00:13. The patient is a 68-year-old male patient brought into the hospital for pneumonia. The patient has an extensive history of 00:27. The patient has been diagnosed with schizophrenia in the past. 00:39. He is yelling, screaming and 00:55. He states he feels irritable. He states that he does not feel well. He denies suicidal or homicidal thoughts of ideations. Denies any auditory or visual hallucinations 01:08. PAST MEDICAL HISTORY: History of recent BPH, polyneuropathy, glaucoma, diabetes, 01:17. ALLERGIES: The patient is allergic to aspirin, penicillin, 01:27. SOCIAL HISTORY: The patient is a 68-year-old male patient from 01:34. Financially sustained through [employer]. MENTAL STATUS EXAMINATION: He is alert and oriented to person, place, time, and situation. His mood is anxious. Affect is blunted. Thought process is disorganized 01:43 attention and concentration. Poor insight, judgment, and impulse control. 01:51. DIAGNOSES: 1. tank terminal gauger schizophrenia. 2. Recent 02:11 diabetes. 3. Psychosocial stressors, moderate. 4. 02:17 PLAN: Plan is to maintain medication compliance to assist with positive coping skills and stabilizing the thoughts and behavior. 02:09 schizophrenia 02:13. Psychotherapy for this patient is 45 minutes. This clinician has reviewed the patient's chart and discussed treatment with treatment team. Tess Simon PsyD. DR: Yue JOB#: [id number] CC:
--- NOTE | 2019-09-05 07:30 | Progress Note ---
DATE: 09/03/2019 NOTE: POOR AUDIO. PSYCHOTHERAPY CONSULTATION PROGRESS NOTE TREATING ATTENDING PHYSICIAN: Joe Salinas D.O. HISTORY OF PRESENT ILLNESS: This is a 68-year-old male patient. The patient was diagnosed with paranoid schizophrenia. The patient remains anxious, restless, agitated, thoughts of hopelessness. patient has poor attention and concentration. Poor insight, judgment, impulse control. DIAGNOSES: . I assessed this patient and provided him with, 1. orientation, which is focused on improving cognitive level of function, as the patient is very confused and disorganized, oriented to person, place, time, and situation. 2. . PLAN: Plan is to maintain medication compliance with positive coping skills and stabilizing the thoughts. Behavioral psychotherapy provided for this patient is 20 minutes. This clinician has reviewed the patient's chart and discussed treatment with treatment team. Tess Simon PsyD. DR: Yue JOB#: [id number] CC:
--- NOTE | 2019-09-05 12:28 | Discharge Summary ---
Discharge Summary Discharge Summary _ DATE OF ADMISSION: 08/28/2019 DATE OF DISCHARGE: 09/03/2019 DISCHARGED BY: Dr Salinas REASON FOR ADMISSION: 68 years old male with past medical history of diabetes mellitus, COPD, hypertension, TIA, hyperlipidemia, BPH, dementia, schizophrenia, seizure disorder, history of CVA with right-sided deficit, BPH, morbid obesity, DNR status brought by paramedics from the extended care facility due to fever. Patient complained of shortness of breath and occasional cough. Patient also reported generalized body aches. No chest pain. Patient unsure if anyone in the facility was diagnosed with COVID-19. Upon evaluation patient was afebrile, but hypoxic with pulse oximetry 84% on the room air. Laboratory work-up revealed mild leukopenia, hemoglobin 11.2, hematocrit 35.8, platelet count 270. D-dimer 0.62. Stable electrolytes. BUN 18, creatinine 1.6. Glucose 164. Lactic acid 0.8. AST 49 ALT 36. LDH 314. Troponin negative, pro BNP 167. EKG revealed sinus rhythm , no acute ischemic changes. CRP 4.8. Chest x-ray demonstrated left basilar atelectasis and suspected faint hazy peripheral infiltrate in the inferior right upper lobe. Urinalysis revealed evidence of urinary tract infection. In emergency department patient started on supplemental oxygen. Patient started on IV Solu-Medrol and albuterol inhaler. Blood gas revealed hypoxia without hypercapnia. Patient pancultured and started on empiric antibiotic. Patient was swabbed for COVID-19. Patient subsequently admitted with hypoxia ,pneumonia , suspected COVID-19 infection . CONSULTANTS: seismograph supervisor Dr. Cordova buffet attendant Dr. Spangler ID specialist Dr. Rucker surgery Dr. Love psychiatrist Dr. Sosa [facility] COURSE: Patient admitted to telemetry floor. Patient initially was kept in isolation. Patient was on IV fluids and empiric antibiotics. Blood culture came back negative. Nasal swab for influenza was negative. SARS -CoV-2 by PCR on was detected. Isolation continued. Urine culture revealed MRSA. Sputum culture was negative. Patient completed treatment with antibiotics while in the hospital. Supplemental oxygen provided and titrated to keep pulse oximetry above 90%. Pulmonary toilet provided. Blood sugar was managed as per seismograph supervisor recommendation with long-acting Levemir, short acting pre-meal NovoLog. Sliding scale of insulin was implemented as needed. Diabetic diet provided. SNF medication continued. Blood pressure was as managed with beta-angelina and hydralazine. Statin continued. Renal parameters and electrolytes were closely monitored. Electrolytes corrected as needed , nephrotoxins were avoided. Creatinine from initial 1.6 down to 1.3. Flomax continued. Hemoglobin and hematocrit were closely monitored with goal to keep hemoglobin above 7; prior to discharge hemoglobin 9.9 , hematocrit 29.7. Seizure precaution maintained, no evidence of seizure activity while in the hospital. Patient presented with three full-thickness pressure injuries. Wound care provided as per surgeon recommendation. Continue wound care at the facility. Psychiatric medication regimen was optimized as per psychiatrist. Patient clinically stabilized and was ready for transfer back to shelter [facility] for continuation of care. FINAL DIAGNOSES: Confirmed COVID-19 infection Pneumonia MRSA UTI Hypoxia COPD Diabetes mellitus Chronic kidney disease Hyperlipidemia Anemia History of GI bleeding Schizoaffective disorder Seizure disorder CVA with residual right-sided deficit BPH COPD Hypertension Morbid obesity Decubitus ulcer/ Pressure injury, present on admission Major depressive disorder, severe, recurrent with psychotic features DNR/DNI status DISCHARGE MEDICATIONS: See Medication Reconciliation list. DISCHARGE INSTRUCTIONS: Patient was discharged to the shelter facility. Follow up with medical doctor at the facility. I have been assigned to dictate discharge summary for this account. I was not involved in the patient's management. Aletha Lindquist NP September 05, 2019 12:28
== END 2019-09-03 19:00 | DRG 177 ==
LOC: EDBD 21:48 → EMR 22:04 → 2W 22:33 → EDBEDREQ 08-29 00:35 → 2E 08-29 09:45
DX: U07.1 COVID-19 (principal); J12.89 Other viral pneumonia; L89.153 Pressure ulcer of sacral region, stage 3; N39.0 Urinary tract infection, site not specified; E46 Unspecified protein-calorie malnutrition; F33.3 Major depressive disorder, recurrent, severe with psychotic symptoms; I69.351 Hemiplegia and hemiparesis following cerebral infarction affecting right dominant side; L89.156 Pressure-induced deep tissue damage of sacral region; E66.01 Morbid (severe) obesity due to excess calories; Z68.30 Body mass index [BMI] 30.0-30.9, adult; G40.909 Epilepsy, unspecified, not intractable, without status epilepticus; R09.02 Hypoxemia; Z88.6 Allergy status to analgesic agent; Z88.1 Allergy status to other antibiotic agents; Z88.0 Allergy status to penicillin; Z88.2 Allergy status to sulfonamides; Z79.4 Long term (current) use of insulin; E11.22 Type 2 diabetes mellitus with diabetic chronic kidney disease; N18.9 Chronic kidney disease, unspecified; E78.5 Hyperlipidemia, unspecified; F41.9 Anxiety disorder, unspecified; Z66 Do not resuscitate; J44.9 Chronic obstructive pulmonary disease, unspecified; N40.0 Benign prostatic hyperplasia without lower urinary tract symptoms; H40.9 Unspecified glaucoma; G62.9 Polyneuropathy, unspecified; E86.0 Dehydration; B95.62 Methicillin resistant Staphylococcus aureus infection as the cause of diseases classified elsewhere
CPT/HCPCS: 36415; 36600; 71045; 80048; 80053; 80202; 81003; 82550; 82728; 82803; 82962; 83605; 83615; 83735; 83880; 84484; 85025; 85379; 85610; 85651; 85730; 86140; 86710; 87040; 87070; 87081; 87086; 87181; 87205; 87635; 93005; 96365; 96375; 97803; 99291; J1815; J7030; S5561

== ENCOUNTER 2020-02-15 13:48 | Emergency (ER) | payer MEDICARE, OTHER ==
[~2020-02-15] VITALS: Ht 175.3 cm; Wt 94.3 kg
[~2020-02-15 13:48] MED LIST changes: +HYDRALAZINE HCL25 M1 ORAL; +METOPROLOL TART25 MG ORAL; +POLYETHYLENE GL17 GM ORAL; +PROTONIX40 MG ORAL
--- NOTE | 2020-02-15 14:00 | NUR ---
ED Nurse Note: pt PATIENCE GAGNON from [facility] for hyperglycemia. per EMS, pt has been hyperglycemic in the high 300's for a month. the last reading was 395, and pt was given 5 units of insulin, accucheck in ED is 409. EMS report that pt tested + for COVId in September, does not present with symptoms today. pt has chronic diabetic neuropathy pain, no new onset of pain today. pt's skin is warm dry and intact and diaphoretic.
[2020-02-15] MEDS ORDERED: ECONAZOLE NIT 130 GM TP (14:07)
[2020-02-15] MEDS ORDERED: LEVEMIR100 UNIT/1 SUBQ (14:07)
[2020-02-15] MEDS ORDERED: METFORMIN HCL500 M1 ORAL (14:07)
[2020-02-15] MEDS ORDERED: FLEET ENEMA133 ML RECTAL (14:07)
[2020-02-15] MEDS ORDERED: HUMALOG100 UNIT/4 SUBQ (14:07)
--- NOTE | 2020-02-15 14:10 | NUR ---
ED Nurse Note: pt is refusing IV line, allows blood draw in only 1 location on his arm. pt states that he is insulin intolerant and also allergivc to normal saline. 2 RNs attempted to draw blood, blood and urine collected and sent to lab.
[2020-02-15] MEDS ORDERED: ZYPREXA5 MG ORAL (14:11)
[2020-02-15] MEDS ORDERED: ONDANSETRON ODT4 MG BC (14:11)
[2020-02-15 14:15] VITALS: BP 138/78
--- NOTE | 2020-02-15 14:15 | NUR ---
ED Nurse Note: pt notified that his glucose is elevated, refusing insulin or IV treatment at this time. pt states that he wants to go to a different hospital, very loudly yelling at hospital staff
[2020-02-15] MEDS ORDERED: Insulin Human Regular 100units/ml 3ml IV ONE (14:30)
[2020-02-15 14:51] LABS: BASOPHILS % (AUTO) 2.9 % (0.0-2.0); EOSINOPHILS % (AUTO) 4.4 % (0.0-3.0); HEMATOCRIT 37.6 % (42.0-52.0); HEMOGLOBIN 12.9 G/DL (14.2-18.0); LYMPHOCYTES % (AUTO) 25.6 % (20.0-45.0); MEAN CORPUSCULAR VOLUME 81 FL (80-99); MONOCYTES % (AUTO) 5.5 % (1.0-10.0); NEUTROPHILS % (AUTO) 61.5 % (45.0-75.0); PLATELET COUNT 250 K/UL (150-450); RED BLOOD COUNT 4.66 M/UL (4.70-6.10); RED CELL DISTRIBUTION WIDTH 13.6 % (11.6-14.8); WHITE BLOOD COUNT 6.8 K/UL (4.8-10.8)
[2020-02-15] MEDS ORDERED: Haloperidol 5mg/ml Inj IM ONE (15:00)
[2020-02-15 15:07] LABS: APPEARANCE,URINE CLEAR; BILIRUBIN, URINE NEGATIVE (NEGATIVE); COLOR,URINE PALE YELLOW; GLUCOSE, URINE (UA) 4+ (NEGATIVE); KETONES,URINE NEGATIVE (NEGATIVE); LEUKOCYTE ESTERASE ,URINE NEGATIVE (NEGATIVE); NITRITE,URINE NEGATIVE (NEGATIVE); PH,URINE 5 (4.5-8.0); PROTEIN,URINE 1+ (NEGATIVE); UROBILINOGEN,URINE NORMAL MG/DL (0.0-1.0)
[2020-02-15 15:08] LABS: ANION GAP 14 mmol/L (5-15); BLOOD UREA NITROGEN 23 mg/dL (7-18); CALCIUM 8.5 MG/DL (8.5-10.1); CARBON DIOXIDE 21 MMOL/L (21-32); CHLORIDE 99 MMOL/L (98-107); CREATININE 1.6 MG/DL (0.55-1.30); POTASSIUM 5.6 MMOL/L (3.5-5.1); SODIUM 134 MMOL/L (136-145)
[2020-02-15] MEDS ORDERED: Morphine Sulfate 4mg/ml Inj (IV USE ONLY) IVP ONE (15:15)
[2020-02-15 15:20] LABS: ALANINE AMINOTRANSFERASE 32 U/L (12-78); ALBUMIN 3.3 G/DL (3.4-5.0); ALKALINE PHOSPHATASE 127 U/L (46-116); ASPARTATE AMINO TRANSFERASE 55 U/L (15-37); BILIRUBIN,TOTAL 0.4 MG/DL (0.2-1.0); CREATINE KINASE 142 U/L (26-308)
--- NOTE | 2020-02-15 15:26 | Diagnostic Imaging Report ---
FILM CXR 1 VIEW INDICATION: Chest pain COMPARISON: September 02, 2019 FINDINGS: Single frontal view demonstrates a normal cardiomediastinal silhouette. No pleural effusions. The visualized osseous structures are within normal limits. Right upper lobe and left lower lobe interstitial prominence with improved appearance from the prior exam. No new airspace disease. IMPRESSION: Interstitial prominence of the right upper lobe and left lower lobe with improved appearance from the prior exam. No new airspace disease..
--- NOTE | 2020-02-15 15:34 | Emergency Room Report ---
History of Present Illness General Chief Complaint: Abnormal Labs Source: Medical Record Present Illness HPI 69-year-old male here with hyperglycemia. The patient is a type II diabetic and per the patient's primary care provider he is noncompliant with his insulin. His glucose at the [facility] facility has been in the 300s over the past several days to weeks. Patient however refuses to take his insulin. He was sent here for further evaluation. In the emergency department the patient has no complaints whatsoever. He is awake and alert and decisional. He denies any fevers, chills, chest pain, palpitations, shortness of breath, cough, back pain, abdominal pain, nausea vomiting, diarrhea, dysuria. Of note the patient did test positive for COVID-19 several months ago. He has no complaints at this time. 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 COVID-19 Screening: Positive COVID-19 COVID-19 Testing Source: 3 months ago Nursing Documentation-PM Past Medical History: No History, Except For Hx Cardiac Problems: Yes - HLD; TIA Hx Hypertension: Yes Hx COPD: Yes Hx Diabetes: Yes Hx Cancer: No Hx Gastrointestinal Problems: Yes - GI BLEED; Hx Neurological Problems: Yes - ULCER; BPH; POLYNEURO; DEMENTIA; SCHIZ; BIPOLAR Hx Cerebrovascular Accident: Yes Hx Seizures: Yes - EPILEPSY Physical Exam Vital Signs Date Time Temp Pulse Resp B/P (MAP) Pulse Ox O2 Delivery O2 Flow Rate FiO2 02/15/20 13:54 98.6 76 22 138/78 (98) 93 Room Air Medical Decision Making Diagnostic Impression: Primary Impression: Hyperglycemia ER Course EKG: NSR, no ischemia, intervals WNL. No ectopy. Rate 80 bpm Rhythm strip: patient monitored for arrhythmias - no malignant dysrhythmias, runs of PVCs, nor pauses noted 69-year-old male here blood glucose readings at the [facility] facility. Here in the emergency department the patient was awake and alert and completely decisional. He had no complaints whatsoever and was immediately demanding to leave the hospital. I informed the patient that it was imperative that we further investigate his hyperglycemia including obtaining blood work establishing IV access and possibly giving medications including insulin. Patient was told that he had an elevated lactic acid as well as hyperkalemia. Despite this the patient adamantly refused any interventions. I explained at length that the patient's condition may deteriorate if we are not allowed to investigate treat appropriately. The patient expressed understanding and still was demanding to leave AGAINST MEDICAL ADVICE. He was harassing the staff and making sexual remarks towards the nurses. Despite repeated efforts to inform the patient that he may suffer severe morbidity or even if his condition is not treated, the patient still was demanding to leave AGAINST MEDICAL ADVICE. Patient left AGAINST MEDICAL ADVICE. His primary physician Dr. Salinas was informed. Laboratory Tests Test 02/15/20 14:14 02/15/20 14:28 02/15/20 14:50 POC Whole Blood Glucose 409 MG/DL (74-106) H White Blood Count 6.8 K/UL (4.8-10.8) Red Blood Count 4.66 M/UL (4.70-6.10) L Hemoglobin 12.9 G/DL (14.2-18.0) L Hematocrit 37.6 % (42.0-52.0) L Mean Corpuscular Volume 81 FL (80-99) Mean Corpuscular Hemoglobin 27.6 PG (27.0-31.0) Mean Corpuscular Hemoglobin Concent 34.3 G/DL (32.0-36.0) Red Cell Distribution Width 13.6 % (11.6-14.8) Platelet Count 250 K/UL (150-450) Mean Platelet Volume 5.8 FL (6.5-10.1) L Neutrophils (%) (Auto) 61.5 % (45.0-75.0) Lymphocytes (%) (Auto) 25.6 % (20.0-45.0) Monocytes (%) (Auto) 5.5 % (1.0-10.0) Eosinophils (%) (Auto) 4.4 % (0.0-3.0) H Basophils (%) (Auto) 2.9 % (0.0-2.0) H Sodium Level 134 MMOL/L (136-145) L Potassium Level 5.6 MMOL/L (3.5-5.1) H Chloride Level 99 MMOL/L (98-107) Carbon Dioxide Level 21 MMOL/L (21-32) Anion Gap 14 mmol/L (5-15) Blood Urea Nitrogen 23 mg/dL (7-18) H Creatinine 1.6 MG/DL (0.55-1.30) H Estimated Glomerular Filtration Rate 42.9 mL/min (>60) Glucose Level 423 MG/DL (74-106) H Lactic Acid Level 2.40 mmol/L (0.4-2.0) H Calcium Level 8.5 MG/DL (8.5-10.1) Magnesium Level 1.4 MG/DL (1.8-2.4) L Total Bilirubin 0.4 MG/DL (0.2-1.0) Aspartate Amino Transferase (AST) 55 U/L (15-37) H Alanine Aminotransferase (ALT) 32 U/L (12-78) Alkaline Phosphatase 127 U/L (46-116) H Total Creatine Kinase 142 U/L (26-308) Troponin I 0.000 ng/mL (0.000-0.056) Total Protein 6.7 G/DL (6.4-8.2) Albumin 3.3 G/DL (3.4-5.0) L Globulin 3.4 g/dL Albumin/Globulin Ratio 1.0 (1.0-2.7) Acetone Level Negative (NEGATIVE) Urine Color Pale yellow Urine Appearance Clear Urine pH 5 (4.5-8.0) Urine Specific [place] 1.005 (1.005-1.035) Urine Protein 1+ (NEGATIVE) H Urine Glucose (UA) 4+ (NEGATIVE) H Urine Ketones Negative (NEGATIVE) Urine Blood Negative (NEGATIVE) Urine Nitrite Negative (NEGATIVE) Urine Bilirubin Negative (NEGATIVE) Urine Urobilinogen Normal MG/DL (0.0-1.0) Urine Leukocyte Esterase Negative (NEGATIVE) Urine RBC Pending Urine WBC Pending Urine Squamous Epithelial Cells Pending Urine Bacteria Pending Last Vital Signs Date Time Temp Pulse Resp B/P (MAP) Pulse Ox O2 Delivery O2 Flow Rate FiO2 02/15/20 14:15 98.6 88 22 138/78 93 Room Air Disposition: AGAINST MEDICAL ADVICE Condition: Stable Waqas Parsons M.D. Feb 15, 2020 15:34
--- NOTE | 2020-02-15 15:49 | NUR ---
ED Nurse Note: [facility] here to transport pt back to [facility]. Anny Leon at the facility was notified of pt's return. pt signed all necessary paperwork. risks of leaving AMA were explained to pt, he verbalized understanding of teachings and insisted on leaving. he does not want to be seen here, states that his PCP is not at this hospital, he wants to go to the hospital where his primary is at. pt took all belongings with him upon departure
[2020-02-15 15:50] VITALS: BP 138/78
--- NOTE | 2020-02-16 19:32 | Cardiology Report ---
APPROVED REPORT EKG Measurement Heart [id number] <Conclusion> Sinus rhythm with 1st degree AV block Otherwise normal ECG
== END 2020-02-15 15:50 | disposition left against medical advice (07) ==
LOC: EDBD 13:48 → EDUNIT# 13:48 → EMR 14:07
DX: E11.65 Type 2 diabetes mellitus with hyperglycemia (principal); G40.909 Epilepsy, unspecified, not intractable, without status epilepticus; F03.90 Unspecified dementia, unspecified severity, without behavioral disturbance, psychotic disturbance, mood disturbance, and anxiety; F20.9 Schizophrenia, unspecified; F31.9 Bipolar disorder, unspecified; J44.9 Chronic obstructive pulmonary disease, unspecified; E11.42 Type 2 diabetes mellitus with diabetic polyneuropathy; I10 Essential (primary) hypertension; E78.5 Hyperlipidemia, unspecified; Z86.73 Personal history of transient ischemic attack (TIA), and cerebral infarction without residual deficits; Z88.2 Allergy status to sulfonamides; Z88.8 Allergy status to other drugs, medicaments and biological substances; Z91.14 Patient's other noncompliance with medication regimen; Z79.4 Long term (current) use of insulin; Z88.6 Allergy status to analgesic agent; Z88.0 Allergy status to penicillin; R45.1 Restlessness and agitation
CPT/HCPCS: 36415; 71045; 80053; 81003; 82009; 82550; 82962; 83605; 83735; 84484; 85025; 93005; 99284